=== PATIENT | female | born 1950 | race Caucasian/White ===

== ENCOUNTER 2019-12-19 13:28 | Outpatient (CLI) | payer MEDICARE, MEDICAID, SELFPAY ==
[2019-12-19 14:08] LABS: Blood Urea Nitrogen 25 mg/dL (7-17); Calcium 8.4 mg/dL (8.4-10.2); Carbon Dioxide 27 mmol/L (22-30); Chloride 104 mmol/L (98-107); Estimated Glomerular Filt Rate 35; Glucose 173 mg/dL (65-105); Magnesium 0.7 mg/dL (1.6-2.3); Sodium 141 mmol/L (137-145)
== END 2019-12-19 13:29 | disposition home or self-care (01) ==
PROVIDERS: PCP Family Medicine; Visit Provider Internal Medicine Cardiovascular Disease
DX: R60.0 Localized edema (principal)
CPT/HCPCS: 36415; 80048; 83735

== ENCOUNTER 2020-01-14 11:00 | Outpatient (CLI) | payer MEDICARE, MEDICAID, SELFPAY ==
--- NOTE | ~2020-01-14 | XR_ITS ---
EXAMINATION: XR abdomen/kub 1V INDICATION: Right kidney stone, post lithotripsy TECHNIQUE: Supine views of the abdomen were obtained on 2 radiographs. COMPARISON: 08/05/2019 FINDINGS: No definite urinary tract calculi are identified. Punctate calcifications in the upper abdo men are consistent with old granulomatous disease of the liver and spleen. There are surgical clips i n the left pelvis. The bowel gas pattern is normal. There is mild osteoarthritis of the hips severe l umbar spondylosis is noted.. IMPRESSION: 1. No urinary tract calculi identified. Reviewed, dictated and finalized at location A.
== END 2020-01-14 11:01 | disposition home or self-care (01) ==
PROVIDERS: PCP Family Medicine; Visit Provider Urology
DX: N20.0 Calculus of kidney (principal)
CPT/HCPCS: 74018

== ENCOUNTER 2020-05-23 09:39 | Outpatient (CLI) | payer MEDICARE, MEDICAID, SELFPAY ==
--- NOTE | ~2020-05-23 | CT_ITS ---
EXAMINATION: CT abdomen pelvis wo con DATE: 05/23/2020 10:01 INDICATION: Hematuria TECHNIQUE: Computed tomography (CT) of the abdomen and pelvis was performed without intravenous contr ast. The dose-length product (DLP) was 770.32 mGy-cm. Automated exposure control and iterative recons truction technique were employed. COMPARISON: None FINDINGS: Minimal dependent atelectasis is present in the lung bases. The heart size is normal. Punct ate calcifications in otherwise normal appearing liver and spleen likely represent healed granulomato us disease. The gallbladder is surgically absent. The pancreas and adrenal glands are normal. There i s a 1.5 cm stone of the left kidney upper pole. A 7 mm stone is seen in a lower pole calyx of the rig ht kidney. There is a 4 mm stone of the right kidney upper pole. There is no hydronephrosis or hydrou reter. There is calcified atherosclerosis of the aorta and many of the other arteries. No pathologica lly enlarged abdominal or pelvic lymph nodes are identified. There is no free intraperitoneal gas or evidence of bowel obstruction. Colonic diverticulosis is present without evidence of diverticulitis. Mild thoracolumbar spondylosis is noted. IMPRESSION: 1. Bilateral nephrolithiasis with 7 mm stone projecting in a lower pole calyx of the right kidney. Reviewed, dictated and finalized at location A. ALER HELPER IMPRESSION: 1. Bilateral nephrolithiasis with 7 mm stone projecting in a lower pole calyx o f the right kidney.
--- NOTE | ~2020-05-23 | XR_ITS ---
EXAMINATION: XR abdomen/kub 1V INDICATION: Hematuria TECHNIQUE: Supine views of the abdomen were obtained on 2 radiographs. COMPARISON: CT from today and abdominal radiograph dated 01/14/2020 FINDINGS: 1.4 cm stone is seen in the left kidney upper pole. Bowel contents project over the kidneys limiting sensitivity for renal stones including known right nephrolithiasis. Punctate calcifications of the spleen and liver are consistent with old granulomatous disease. There are surgical clips in t he left pelvis. The bowel gas pattern is normal. IMPRESSION: 1. Left nephrolithiasis. Known right nephrolithiasis well demonstrated. Reviewed, dictated and finalized at location A. INTENSIVE CARE UNIT
== END 2020-05-23 09:40 | disposition home or self-care (01) ==
PROVIDERS: PCP Family Medicine; Visit Provider Urology
DX: N20.0 Calculus of kidney (principal)
CPT/HCPCS: 74018; 74176

== ENCOUNTER 2020-05-30 14:39 | Outpatient (CLI) | payer MEDICARE, MEDICAID, SELFPAY ==
--- NOTE | 2020-05-30 14:43 | ECG_ITS ---
Measurements Intervals [place] Rate: 89 P: 57 [place]: 176 QRS: 11 QRSD: 94 T: 32 QT: 334 QTc: 408 Interpretive Statements SINUS RHYTHM LOW VOLTAGE- PRECORDIAL LEADS POOR R WAVE PROGRESSION, ANTERIOR LEADS BASELINE ARTIFACT- I, II, III, AVR, AVL, AVF BORDERLINE ECG Electronically Signed On 05-30-2020 15:07:01 TRUCK BODY REPAIRER by Bronson Up D.O.
[2020-05-30 15:59] LABS: INR 1.1; Partial Thromboplastin Time 26.9 SECONDS (22.3-36.8); Prothrombin Time 14.6 Seconds (11.1-14.7)
[2020-05-30 16:04] LABS: Potassium 4.1 mmol/L (3.4-5.0)
[2020-05-30 16:11] LABS: Anion Gap 8 mmol/L (8-16); Blood Urea Nitrogen 25 mg/dL (7-17); Calcium 9.4 mg/dL (8.4-10.2); Carbon Dioxide 29 mmol/L (22-30); Chloride 103 mmol/L (98-107); Estimated Glomerular Filt Rate 35; Glucose 125 mg/dL (65-105); Sodium 140 mmol/L (137-145)
== END 2020-05-30 14:40 | disposition home or self-care (01) ==
PROVIDERS: PCP Family Medicine; Visit Provider Urology
DX: Z01.818 Encounter for other preprocedural examination (principal); E11.9 Type 2 diabetes mellitus without complications; N20.0 Calculus of kidney
CPT/HCPCS: 36415; 80048; 85610; 85730; 87086; 93005

== ENCOUNTER 2020-06-03 02:22 | Outpatient (CLI) | payer MEDICARE, MEDICAID, SELFPAY ==
[2020-06-03 19:47] LABS: SARS-CoV-2 RNA PCR Negative
== END 2020-06-03 02:23 | disposition home or self-care (01) ==
LOC: ANHCOVIDDT 02:23
PROVIDERS: PCP Family Medicine; Visit Provider Urology
DX: Z01.812 Encounter for preprocedural laboratory examination (principal); Z20.828 Contact with and (suspected) exposure to other viral communicable diseases
CPT/HCPCS: 87635; C9803; U0003

== ENCOUNTER 2020-06-06 04:15 | Day surgery (SDC) | payer MEDICARE, MEDICAID, SELFPAY ==
[2020-05-29 15:49] VITALS: BMI 40.3
[2020-06-06] VITALS (7 sets, daily range): BP systolic 116–156; BP diastolic 53–78; PULSE 79–88; RESP 14–20; TEMP 36.1–37.1; O2SAT 95–100
--- NOTE | ~2020-06-06 | XR_ITS ---
EXAMINATION: XR abdomen/kub 1V EXAM DATE: 06/06/2020 09:13 INDICATION: Pre lithotripsy, left nephrolithiasis. TECHNIQUE: Frontal projection(s) of the abdomen for interpretation. Correlation is made to CT, KUB fr om 05/23/2020. FINDINGS: Probable identification of left sided 1.4 cm stone, indicated. Difficult to definitively i dentify right nephrolithiasis. There are splenic and liver granulomata. Nonobstructive bowel gas clifford josé miguel. IMPRESSION: Probable identification left nephrolithiasis, indicated. Reviewed, dictated and finalized at location A. GER STATE
--- NOTE | 2020-06-06 06:10 | WPDHPUPDATE1 ---
History and Physical Update Update Date/Time: 06/06/20 06:10 History and Physical has been reviewed, including an updated exam of the patient. There are NO changes in the patient's condition. Risks, benefits, and alternatives have been discussed and questions answered. Patient agrees to proceed with procedure.
[2020-06-06] MEDS: LACTATED RINGERS 1,000 ML 30 ML IV CONT (09:37)
--- NOTE | 2020-06-06 09:43 | WPDANESEPPF ---
Anes - Initial Pre Proc Eval Procedure: Operation Date: 06/06/20 11:00 Proposed Procedures p Left Renal Extracorporeal Shock Wave Lithotripsy - Miko Huff MD s Cystoscopy, Left Stent Placement - Miko Huff MD Date/Time: 06/06/20 09:43 Surgeon: Miko Huff MD Pre Op Diagnosis: Left Renal Stone Patient Data Age: 70 Gender: F Height: 1.57 m Weight: 100 kg Allergies Allergy/AdvReac Type Severity Reaction Status Date / Time tramadol Allergy Severe Hives Verified 05/29/20 15:14 atorvastatin AdvReac Severe Nausea and Verified 05/29/20 15:14 Vomiting pravastatin AdvReac Intermediate Nausea and Verified 05/29/20 15:14 Vomiting budesonide AdvReac Mild Muscle Verified 05/29/20 15:14 Spasms formoterol AdvReac Mild Muscle Verified 05/29/20 15:14 Spasms Home Medications Medication Instructions Recorded Confirmed Type albuterol sulfate [ProAir HFA] 1 inh INHALATION QID PRN 05/17/19 05/29/20 History betamethasone valerate 1 applic TOPICAL DAILY 06/06/19 05/29/20 History blood sugar diagnostic #10 each 06/18/19 02/08/20 History blood sugar diagnostic #100 each 06/21/19 02/08/20 Rx magnesium hydroxide 400 mg (170 mg 800 mg PO DAILY tablet 02/08/20 05/29/20 History magnesium) chewable tablet amlodipine 5 mg tablet 5 mg PO DAILY #90 tablet 03/10/20 05/29/20 Rx lisinopril 20 mg tablet 20 mg PO DAILY #90 tablet 03/10/20 05/29/20 Rx glimepiride 1 mg tablet 1 mg PO DAILY #90 tablet 05/12/20 05/29/20 Rx omeprazole 20 mg capsule,delayed 20 mg PO BID #90 cap 05/12/20 05/29/20 Rx release hydrocodone 5 mg-acetaminophen 325 1 tablet PO BID PRN #30 tablet 05/15/20 05/29/20 Rx mg tablet dulaglutide 0.75 mg/0.5 mL 0.75 mg SUBCUT WEEKLY #2 ml 05/22/20 05/29/20 Rx subcutaneous pen injector Patient hx anesthesia problems: none Family hx anesthesia problems: none PMFSH Past Medical History Medical History (Updated 05/15/20 @ 16:09 by Angel Cottrell DO) Abnormal laboratory test (~05/2019) Asthma rescue inhaler Chronic neck pain MRI of cervical spine demonstrated [id number] cervical spondylosis C5 through C7, left foraminal narrowing and moderate right foraminal narrowing C5-C6, spinal stenosis with minimal flattening along the ventral cord C5 through C7. Diabetes (~2007) NIDDM GERD (gastroesophageal reflux disease) takes med Headache (~04/2019) Hypercholesterolemia Hypertension (~2016) Incontinence Kidney stones most recent kidney stone April 2019 Morbid obesity MADDY (obstructive sleep apnea) cpap for over 10 years Surgical History Surgical History H/O colonoscopy History of appendectomy History of bilateral tubal ligation History of cataract surgery Bilateral History of lithotripsy History of total abdominal hysterectomy and bilateral salpingo-oophorectomy due to dysfunctional uterine bleeding Hx of cholecystectomy (Unknown) S/P cystoscopy with ureteral stent placement S/P dilatation of esophageal stricture with multiple EGDs and dilatations Family History Family History Grandparent Acute myocardial infarction Family history of malignant neoplasm Carcinoma of colon Mother Family history of liver disease Mother who in her late 50s of cirrhosis related to hepatitis C Father Leukemia father who in his 60s of leukemia. 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 She then went on disability when she had a nervous breakdown. She has 3 children who are all healthy. She is a former smoker and smoked at least 2 packs of cigarettes per day from the age of 17 to age 57. She rarely drinks alcohol and only in moderation. She has 3 (or 4) children who are all healthy. Smoking packs p
[2020-06-06 09:52] LABS: Glucose Point of Care 95 (65-105)
[2020-06-06] MEDS: ceFAZolin 2 GM/D5W 50 ML 2 GM/50 ML BAG IVPB (11:02)
--- NOTE | 2020-06-06 11:19 | PM.PROC ---
Procedure Note - Detailed Date of procedure: 06/06/20 Pre-op diagnosis: Left Renal Stone Post-op diagnosis: same Procedure performed: Left ESWL Description of procedure: After discussion with pt. in pre-operative area we opted to proceed with ESWL alone without stent placement. The patient was brought to the operative suite where she was placed in the supine position on the Dornier lithotripsy table. The focal point of the lithotripter was placed at a 13-14mm left renal calculus. A total of 2500 shocks were delivered at a power setting of 4. There appeared to be good fragmentation of the stone. The patient tolerated the procedure well and was taken to the recovery room in good condition. Anesthesia: GLMA Surgeon: Miko Huff MD Estimated blood loss (mL): 0 Drains: No Packing: No Pathology: none sent Complications: No immediate complications Condition: stable Disposition: PACU
--- NOTE | 2020-06-06 12:35 | SUR.PHASEI ---
PT AWAKE AND ALERT. READY TO SIT IN RECLINER AND HAVE PO FLUIDS
[2020-06-06 12:52] LABS: Glucose Point of Care 110 (65-105)
== END 2020-06-06 14:00 | disposition home or self-care (01) ==
PROVIDERS: PCP Family Medicine; Visit Provider Urology
PROC: (CPT 50590; principal; 2020-06-06 11:00)
DX: N20.0 Calculus of kidney (principal); I10 Essential (primary) hypertension; E78.00 Pure hypercholesterolemia, unspecified; J45.909 Unspecified asthma, uncomplicated; E11.9 Type 2 diabetes mellitus without complications; G47.33 Obstructive sleep apnea (adult) (pediatric); E66.01 Morbid (severe) obesity due to excess calories; Z68.41 Body mass index [BMI] 40.0-44.9, adult; K21.9 Gastro-esophageal reflux disease without esophagitis; Z87.891 Personal history of nicotine dependence
CPT/HCPCS: 50590; 36415; 74018; 80048; 85610; 85730; 87086; 87635; 93005; A9270; C9803; J0690; J1100; J2250; J2405; J2704; J3010; J7030; J7120; U0003

== ENCOUNTER 2020-06-20 11:46 | Outpatient (CLI) | payer MEDICARE, MEDICAID, SELFPAY ==
--- NOTE | ~2020-06-20 | XR_ITS ---
XR abdomen/kub 1V 06/20/2020 12:07 Indication: Left renal stone Procedure: KUB Comparison: Comparison to multiple prior studies sequentially, with oldest reviewed study dated 03/2020. Findings: Bowel gas pattern is nonobstructive. There are calcified granulomas of the spleen. There is surgical clip in the right midabdomen and left lower pelvis. Mild-moderate lumbar spondylosis. No ac abdirashid osseous abnormality. There are right renal stones. Lung bases are unremarkable. Impression: 1: Right nephrolithiasis. Reviewed, dictated and finalized at location B. NESS SALES CONSULTANT Impression: 1: Right nephrolithiasis.
[2020-06-20 13:25] LABS: Cholesterol 191 mg/dL (0-200); HDL Direct 35 mg/dL; Triglycerides 215 mg/dL (<150)
[2020-06-20 13:35] LABS: LDL Cholesterol Direct 116 mg/dL
== END 2020-06-20 11:47 | disposition home or self-care (01) ==
LOC: ANHIMG 11:46
PROVIDERS: PCP Family Medicine; Referring Provider Internal Medicine Cardiovascular Disease; Visit Provider Urology
DX: N20.0 Calculus of kidney (principal); M47.816 Spondylosis without myelopathy or radiculopathy, lumbar region; E78.5 Hyperlipidemia, unspecified
CPT/HCPCS: 36415; 74018; 80061

== ENCOUNTER 2020-07-04 12:07 | Emergency (ER) | payer MEDICARE, MEDICAID, SELFPAY ==
--- NOTE | ~2020-07-04 | US_ITS ---
EXAMINATION:US venous doppler LE LT INDICATION:Leg pain TECHNIQUE: Multiple grayscale, color flow and Doppler images of the left lower extremity deep venous systems were obtained and reviewed. COMPARISON:No prior studies for comparison. FINDINGS: The common femoral, superficial femoral and popliteal veins demonstrate normal respiratory variation, augmentation and compressibility. Color flow is also seen within the posterior tibial, pe roneal, greater saphenous and profunda veins. IMPRESSION: 1: No lower extremity deep venous thrombosis. Reviewed, dictated and finalized at location A. N TENDER
--- NOTE | ~2020-07-04 | XR_ITS ---
EXAMINATION: XR knee LT min 4V DATE: 07/04/2020 12:59 INDICATION: Left knee pain. TECHNIQUE: 4 views of left knee were obtained. COMPARISON: None. FINDINGS: Bone alignment is normal. No fracture. There is mild tricompartmental osteoarthritis. There is a small knee joint effusion. IMPRESSION: 1. Mild left knee osteoarthritis. 2. Small left knee joint effusion. Reviewed, dictated and finalized at location A. EQUIN COLORING ARTIST
[2020-07-04 12:26] VITALS: BP 147/59; PULSE 99; RESP 18; TEMP 36.2; O2SAT 99
--- NOTE | 2020-07-04 12:33 | ED.LOWEXIN ---
HPI - Extremity Injury (Lower) General Chief Complaint: Extremity Injury, Lower Stated Complaint: left knee pain Time Seen by Provider: 07/04/20 12:33 Source: patient and family Mode of arrival: wheelchair Limitations: no limitations History of Present Illness HPI Narrative: Patient is a 70-year-old female who presents for evaluation of acutely worsening left knee pain. Patient states she has had worsening knee pain over the past month although she had no trauma to the knee. She denies any severe swelling, redness, reports a burning type pain. She states that it hurts with movement. She denies fever, chills. No calf pain. No numbness. Patient has been seeing a nurse practitioner with an orthopedic office and is taking pain medicine without any improvement in her pain. Pain is dull, aching in nature, aggravated with movement can become sharp. Denies hip pain. Patient has follow-up with [facility] July 28. Related Data Home Medications Medication Instructions Recorded Confirmed albuterol sulfate [ProAir HFA] 1 inh INHALATION QID PRN 05/17/19 06/19/20 betamethasone valerate 1 applic TOPICAL DAILY 06/06/19 06/19/20 blood sugar diagnostic #10 each 06/18/19 06/19/20 magnesium hydroxide 400 mg (170 mg 800 mg PO DAILY tablet 02/08/20 06/19/20 magnesium) chewable tablet Allergies Allergy/AdvReac Type Severity Reaction Status Date / Time tramadol Allergy Severe Hives Verified 07/04/20 12:29 atorvastatin AdvReac Severe Nausea and Verified 07/04/20 12:29 Vomiting pravastatin AdvReac Intermediate Nausea and Verified 07/04/20 12:29 Vomiting budesonide AdvReac Mild Muscle Verified 07/04/20 12:29 Spasms formoterol AdvReac Mild Muscle Verified 07/04/20 12:29 Spasms Review of Systems Review of Systems: Narrative: CONSTITUTIONAL: Denies fever, chills, or sweats. CARDIOVASCULAR: Denies chest pain, palpitations, or edema. RESPIRATORY: Denies cough or dyspnea. GASTROINTESTINAL: Denies abdominal pain, nausea, vomiting, or diarrhea. GENITOURINARY: Denies dysuria or hematuria. SKIN: Denies rash or itching. MUSCULOSKELETAL: Denies back pain, reports left knee pain NEUROLOGIC: Denies headache, numbness, or weakness. [facility] Past Medical History Medical History Abnormal laboratory test (~05/2019) Asthma rescue inhaler Chronic neck pain MRI of cervical spine demonstrated [id number] cervical spondylosis C5 through C7, left foraminal narrowing and moderate right foraminal narrowing C5-C6, spinal stenosis with minimal flattening along the ventral cord C5 through C7. Diabetes (~2007) NIDDM GERD (gastroesophageal reflux disease) takes med Headache (~04/2019) Hx of nephrolithotomy with removal of calculi Hypercholesterolemia Hypertension (~2016) Incontinence Kidney stones most recent kidney stone April 2019 Morbid obesity MADDY (obstructive sleep apnea) cpap for over 10 years Surgical History Surgical History H/O colonoscopy History of appendectomy History of bilateral tubal ligation History of cataract surgery Bilateral History of lithotripsy History of total abdominal hysterectomy and bilateral salpingo-oophorectomy due to dysfunctional uterine bleeding Hx of cholecystectomy (Unknown) S/P cystoscopy with ureteral stent placement S/P dilatation of esophageal stricture with multiple EGDs and dilatations Family History Family History Grandparent Acute myocardial infarction Family history of malignant neoplasm Carcinoma of colon Mother Family history of liver disease Mother who in her late 50s of cirrhosis related to hepatitis C Father Leukemia father who in his 60s of leukemia. Sibling Heart disease Social History Social History (Reviewed 07/04/20 @ 13:12 by Blayne
[2020-07-04] MEDS: oxyCODONE HCL (*CRX) 5 MG TAB IR PO (12:57)
[2020-07-04 13:28] LABS: Basophils Percent Auto 0.4 % (0.2-1.2); Eosinophils Absolute Auto 0.8 K/mm3 (0-0.3); Eosinophils Percent Auto 7.7 % (0-4.4); Hematocrit 30.4 % (37.0-47.0); Hemoglobin 9.7 g/dL (12.0-15.0); Immature Granulocyte Absolute 0.05 K/mm3 (0.00-0.031); Immature Granulocyte Percent A 0.5 % (0-0.5); Lymphocytes Absolute Auto 2.46 K/mm3 (0.9-3.2); Lymphocytes Percent Auto 24.7 % (18.3-44.2); Mean Corpuscular HGB Conc 31.9 g/dl (32-36); Mean Corpuscular Hemoglobin 25.7 pg (26-34); Mean Corpuscular Volume 80.4 fl (80-100); Mean Platelet Volume 8.7 fl (7.4-10.4); Monocytes Absolute Auto 0.5 K/mm3 (0.1-0.6); Monocytes Percent Auto 4.9 % (2.6-8.5); Neutrophils Absolute Auto 6.2 K/mm3 (1.3-6.7); Neutrophils Percent Auto 61.8 % (45.5-73.1); Platelet Count Result 210 k/mm3 (150-375); Red Blood Count 3.78 M/mm3 (4.2-5.4); Red Cell Distribution Width 16.3 % (11.5-14.5)
[2020-07-04 13:43] LABS: Anion Gap 5 mmol/L (8-16); Blood Urea Nitrogen 26 mg/dL (7-17); CRP 0.9 mg/dL (<1.0); Calcium 9.4 mg/dL (8.4-10.2); Carbon Dioxide 29 mmol/L (22-30); Chloride 105 mmol/L (98-107); Estimated CRCL calculation 30 ml/min; Estimated Glomerular Filt Rate 28; Glucose 129 mg/dL (65-105); Potassium 4.4 mmol/L (3.4-5.0); Sodium 139 mmol/L (137-145)
[2020-07-04 14:19] VITALS: BP 144/69; PULSE 89; RESP 17; O2SAT 98
[2020-07-04 14:39] LABS: Erythrocyte Sedimentation Rate 74 mm/hr (0-20)
[2020-07-04 15:11] VITALS: BP 144/64; PULSE 97; RESP 17; O2SAT 96
== END 2020-07-04 15:13 | disposition home or self-care (01) ==
PROVIDERS: Emergency Provider Emergency Medicine; PCP Family Medicine
DX: M23.92 Unspecified internal derangement of left knee (principal); J45.909 Unspecified asthma, uncomplicated; K21.9 Gastro-esophageal reflux disease without esophagitis; E78.00 Pure hypercholesterolemia, unspecified; Z87.442 Personal history of urinary calculi; G47.33 Obstructive sleep apnea (adult) (pediatric); E11.22 Type 2 diabetes mellitus with diabetic chronic kidney disease; I12.9 Hypertensive chronic kidney disease with stage 1 through stage 4 chronic kidney disease, or unspecified chronic kidney disease; N18.9 Chronic kidney disease, unspecified; D63.1 Anemia in chronic kidney disease; M48.02 Spinal stenosis, cervical region; M17.12 Unilateral primary osteoarthritis, left knee; M47.812 Spondylosis without myelopathy or radiculopathy, cervical region; G89.29 Other chronic pain; Z79.84 Long term (current) use of oral hypoglycemic drugs; Z98.42 Cataract extraction status, left eye; Z98.41 Cataract extraction status, right eye
CPT/HCPCS: 36415; 73564; 80048; 85025; 85652; 86140; 93971; 99284; A9270

== ENCOUNTER 2020-07-28 11:58 | Outpatient (CLI) | payer MEDICARE, MEDICAID, SELFPAY ==
--- NOTE | ~2020-07-28 | XR_ITS ---
EXAMINATION: XR knee LT min 4V DATE: 07/28/2020 12:21 INDICATION: Left knee pain. TECHNIQUE: 4 views of left knee were obtained. COMPARISON: Left knee radiographs 07/04/2020 FINDINGS: Bone alignment is normal. No fracture. There is mild osteoarthritis of patellofemoral lamont rtment characterized by tiny marginal osteophytes. There is no knee joint effusion. IMPRESSION: 1. Mild left knee osteoarthritis. Reviewed, dictated and finalized at location A. ESSOR OF HISTORICAL THEOLOGY
== END 2020-07-28 11:59 | disposition home or self-care (01) ==
PROVIDERS: PCP Family Medicine; Visit Provider Orthopaedic Surgery
DX: M25.562 Pain in left knee (principal); M17.12 Unilateral primary osteoarthritis, left knee
CPT/HCPCS: 73564

== ENCOUNTER 2020-07-29 09:09 | Emergency (ER) | payer MEDICARE, MEDICAID, SELFPAY ==
[2020-07-29 09:17] VITALS: BP 199/70; PULSE 120; RESP 20; TEMP 35.9; O2SAT 98
--- NOTE | 2020-07-29 09:35 | ECG_ITS ---
Measurements Intervals [place] Rate: 96 P: 56 HI: 195 QRS: 0 QRSD: 85 T: 14 QT: 321 QTc: 407 Interpretive Statements SINUS RHYTHM LOW QRS VOLTAGE IN PRECORDIAL LEADS BASELINE ARTIFACT- I, II, III, AVR, AVF BORDERLINE ECG Electronically Signed On 07-29-2020 11:12:39 CRIMINAL JUSTICE PROGRAM DIRECTOR by Bronson Up D.O.
--- NOTE | 2020-07-29 09:40 | ED.RECABL ---
HPI - Recheck/Abnormal Lab/Rx General Chief Complaint: Recheck/Abnormal Lab/Rx Stated Complaint: high blood sugar Time Seen by Provider: 07/29/20 09:29 Source: patient Mode of arrival: ambulatory Limitations: no limitations History of Present Illness HPI narrative: Patient 70-year-old female complaining of elevated blood sugar this morning 439 accompanied by jittery . Patient denies any headache, dizziness, chest pain, shortness of breath, dull pain, nausea, vomiting, diarrhea, fever, chills or urinary symptoms. Patient states her blood sugar usually runs in the 150s. Related Data Home Medications Medication Instructions Recorded Confirmed albuterol sulfate [ProAir HFA] 1 inh INHALATION QID PRN 05/17/19 07/28/20 betamethasone valerate 1 applic TOPICAL DAILY 06/06/19 07/28/20 blood sugar diagnostic #10 each 06/18/19 07/28/20 magnesium hydroxide 400 mg (170 mg 800 mg PO DAILY tablet 02/08/20 07/28/20 magnesium) chewable tablet Allergies Allergy/AdvReac Type Severity Reaction Status Date / Time tramadol Allergy Severe Hives Verified 07/29/20 09:20 atorvastatin AdvReac Severe Nausea and Verified 07/29/20 09:20 Vomiting pravastatin AdvReac Intermediate Nausea and Verified 07/29/20 09:20 Vomiting budesonide AdvReac Mild Muscle Verified 07/29/20 09:20 Spasms formoterol AdvReac Mild Muscle Verified 07/29/20 09:20 Spasms Review of Systems Review of Systems: All systems reviewed & are unremarkable except as noted in HPI and below Constitutional: Constitutional: Denies body ache(s), Denies chills, Denies excessive sweating, Denies fatigue, Denies fever(s), Denies headache(s), Denies lethargy, Denies malaise, Denies weakness and Denies weight loss Eyes: Eyes: Denies blurry vision, Denies change in vision and Denies loss of vision ENT: Denies dizziness, Denies ear discharge, Denies headache(s), Denies lip swelling, Denies epistaxis, Denies nasal congestion, Denies neck pain, Denies throat swelling and Denies tongue swelling Cardiovascular: Cardiovascular: Denies chest pain, Denies chest pain at rest, Denies chest pain with activity, Denies diaphoresis, Denies rapid heart rate, Denies edema, Denies irregular heart rhythm, Denies lightheadedness, Denies palpitations, Denies dyspnea and Denies dyspnea on exertion Respiratory: Respiratory: Denies chest congestion, Denies cough, Denies hemoptysis, Denies dyspnea and Denies dyspnea on exertion Gastrointestinal: Gastrointestinal: Denies abdominal pain, Denies melena, Denies hematochezia, Denies diarrhea, Denies nausea, Denies vomiting and Denies hematemesis Musculoskeletal: Musculoskeletal: Denies abnormal gait, Denies deformity, Denies joint swelling, Denies limited range of motion, Denies neck pain and Denies numbness Neurologic: Denies Abnormal speech present, Denies abnormal gait, Denies confusion, Denies dizziness, Denies headache(s), Denies focal weakness, Denies loss of vision, Denies numbness, Denies Other visual disturbances, Denies Sensory deficit (Neuro) and Denies weakness Psychiatric: Psychiatric: Denies confusion, Denies depression, Denies auditory hallucinations, Denies homicidal ideation and Denies suicidal ideation Endocrine: Endocrine: Denies cold intolerance, Denies excessive sweating, Denies fatigue, Denies heat intolerance and Denies palpitations Hematologic/Lymphatic: Hematologic/Lymphatic: Denies easy bleeding and Denies easy bruising Allergic/Immunologic: Allergic/Immunologic: Denies lip swelling, Denies throat swelling and Denies tongue swelling PMFSH Past Medical History Medical History Abnormal laboratory test (~05/2019) Arthritis Asthma rescue inhaler Chronic neck pain MRI of cervical spine demonstrated [id number] cervical spondylosis C5 through C7, left foraminal narrowing and moderate right foraminal narrowing C5-C6, spinal stenosis with minimal flattening along the ventral
[2020-07-29 09:58] LABS: Basophils Percent Auto 0.1 % (0.2-1.2); Hematocrit 35.8 % (37.0-47.0); Hemoglobin 11.2 g/dL (12.0-15.0); Immature Granulocyte Absolute 0.15 K/mm3 (0.00-0.031); Lymphocytes Absolute Auto 1.15 K/mm3 (0.9-3.2); Lymphocytes Percent Auto 7.7 % (18.3-44.2); Mean Corpuscular HGB Conc 31.3 g/dl (32-36); Mean Corpuscular Hemoglobin 26.3 pg (26-34); Mean Platelet Volume 9.3 fl (7.4-10.4); Monocytes Absolute Auto 0.4 K/mm3 (0.1-0.6); Monocytes Percent Auto 2.3 % (2.6-8.5); Neutrophils Absolute Auto 13.4 K/mm3 (1.3-6.7); Neutrophils Percent Auto 88.9 % (45.5-73.1); Platelet Count Result 206 k/mm3 (150-375); Red Blood Count 4.26 M/mm3 (4.2-5.4); Red Cell Distribution Width 16.6 % (11.5-14.5)
[2020-07-29 10:11] LABS: Alveolar/Arterial O2 Gradient 51.4 mmHg; Base Excess ABG -3.8 mEq/l (+/-2.0); Carboxyhemoglobin 0.1 % THb (0-2.0); Device ROOM AIR; Fractional Inspired Oxygen 21 %; HCO3 ABG 20.5 mEq/l (22.0-26.0); Methemoglobin ABG 0.3 %THb (0-1.5); Modified Allen's Test Pass; Oxygen Content ABG 13.3 %vol (16.0-22.0); Oxygen Saturation ABG 90.1 % (95.0-100.0); Oxyhemoglobin 89.8 % THb (90.0-100.0); PCO2 ABG 34.2 mmHg (35.0-45.0); PO2 ABG 57.4 mmHg (80.0-100.0); PO2 FiO2 Ratio Arterial Blood 2.73 %; Reduced Hemoglobin 9.8 %THb (0-5.0); Site Drawn RIGHT RADIAL; Total Hemoglobin 10.5 g/dL (12.0-18.0); pH ABG 7.395 (7.350-7.450)
[2020-07-29 10:21] LABS: Alanine Aminotransferase 23 U/L (4-35); Albumin Level 4.3 g/dL (3.5-5.1); Alkaline Phosphatase 121 U/L (38-126); Anion Gap 11 mmol/L (8-16); Aspartate Amino Transferase 19 U/L (14-36); Bilirubin,Total 0.5 mg/dL (0.2-1.3); Blood Urea Nitrogen 29 mg/dL (7-17); Carbon Dioxide 23 mmol/L (22-30); Chloride 104 mmol/L (98-107); Estimated CRCL calculation 33 ml/min; Estimated Glomerular Filt Rate 32; Glucose 326 mg/dL (65-105); Potassium 4.5 mmol/L (3.4-5.0); Sodium 138 mmol/L (137-145)
[2020-07-29] MEDS: SODIUM CHLORIDE 0.9% IV 1,000 ML 999 ML IV CONT (10:49)
[2020-07-29] MEDS: LACTATED RINGERS 1,000 ML 999 ML IV CONT (10:49)
--- NOTE | 2020-07-29 10:55 | PC.NURSE ---
Blood glucose was 275 at 10:48
[2020-07-29 11:00] LABS: Glucose Point of Care 275 (65-105)
[2020-07-29 11:58] VITALS: BP 139/117; PULSE 98; RESP 18; O2SAT 99
[2020-07-29 13:24] VITALS: BP 164/87; PULSE 106; RESP 18; O2SAT 99
[2020-07-29 14:15] LABS: Add Urine Microscopic? YES; Appearance Urine Clear (Clear); Bilirubin Urine Negative (Negative); Blood Urine Negative (Negative); Color Urine Yellow (Yellow); Glucose Urine UA 3+ mg/dL (Negative); Ketones Urine Negative (Negative); Leukocyte Esterase Ur Negative LEU/UL (Negative); Mucus Urine Rare /lpf; Nitrate Urine Negative (Negative); Protein Urine 1+ mg/dL (Negative); Specific Grav Ur 1.024 (1.001-1.035); Squamous Epithelial Cell Urine Rare /hpf (Few); Urobilinogen Urine Negative mg/dL (<2.0); WBC Urine 0-3 /hpf
[2020-07-29 14:49] LABS: Glucose Point of Care 259 (65-105)
[2020-07-29 14:57] VITALS: BP 123/89; PULSE 101; O2SAT 100
== END 2020-07-29 15:25 | disposition home or self-care (01) ==
PROVIDERS: Emergency Provider Emergency Medicine; PCP Family Medicine
DX: E11.65 Type 2 diabetes mellitus with hyperglycemia (principal); E11.22 Type 2 diabetes mellitus with diabetic chronic kidney disease; I12.9 Hypertensive chronic kidney disease with stage 1 through stage 4 chronic kidney disease, or unspecified chronic kidney disease; N18.30 Chronic kidney disease, stage 3 unspecified; J45.909 Unspecified asthma, uncomplicated; M17.12 Unilateral primary osteoarthritis, left knee; K21.9 Gastro-esophageal reflux disease without esophagitis; E78.00 Pure hypercholesterolemia, unspecified; G47.33 Obstructive sleep apnea (adult) (pediatric); E66.01 Morbid (severe) obesity due to excess calories; Z68.39 Body mass index [BMI] 39.0-39.9, adult; Z87.442 Personal history of urinary calculi; Z98.42 Cataract extraction status, left eye; Z98.41 Cataract extraction status, right eye; Z87.891 Personal history of nicotine dependence; Z79.84 Long term (current) use of oral hypoglycemic drugs; R94.31 Abnormal electrocardiogram [ECG] [EKG]
CPT/HCPCS: 36415; 36600; 51701; 80053; 81001; 82375; 82805; 82948; 83050; 85025; 93005; 96360; 99283; J7030; J7120

== ENCOUNTER 2020-08-06 08:15 | Outpatient (CLI) | payer MEDICARE, MEDICAID, SELFPAY ==
[2020-08-06 19:07] LABS: Erythrocyte Sedimentation Rate 99 mm/hr (0-20)
[2020-08-06 19:22] LABS: Anion Gap 4 mmol/L (8-16); Blood Urea Nitrogen 23 mg/dL (7-17); CRP 1.1 mg/dL (<1.0); Calcium 9.5 mg/dL (8.4-10.2); Carbon Dioxide 30 mmol/L (22-30); Chloride 105 mmol/L (98-107); Estimated Glomerular Filt Rate 37; Glucose 140 mg/dL (65-105); Magnesium 1.6 mg/dL (1.6-2.3); Potassium 4.8 mmol/L (3.4-5.0); Sodium 139 mmol/L (137-145)
== END 2020-08-06 08:16 | disposition home or self-care (01) ==
LOC: ANHBWCLAB 08:18
PROVIDERS: PCP Family Medicine; Visit Provider Family Medicine
DX: G47.62 Sleep related leg cramps (principal); M31.6 Other giant cell arteritis; R51.9 Headache, unspecified; R70.0 Elevated erythrocyte sedimentation rate
CPT/HCPCS: 36415; 80048; 82728; 83735; 85652; 86140

== ENCOUNTER 2020-09-15 08:05 | Outpatient (CLI) | payer MEDICARE, MEDICAID, SELFPAY ==
[2020-09-15 19:53] LABS: Basophils Absolute Auto 0.1 K/mm3 (0.0-0.1); Basophils Percent Auto 0.4 % (0.2-1.2); Hematocrit 33.9 % (37.0-47.0); Hemoglobin 10.6 g/dL (12.0-15.0); Immature Granulocyte Absolute 0.07 K/mm3 (0.00-0.031); Immature Granulocyte Percent A 0.5 % (0-0.5); Lymphocytes Absolute Auto 2.43 K/mm3 (0.9-3.2); Lymphocytes Percent Auto 17.9 % (18.3-44.2); Mean Corpuscular HGB Conc 31.3 g/dl (32-36); Mean Corpuscular Hemoglobin 27.5 pg (26-34); Mean Corpuscular Volume 87.8 fl (80-100); Mean Platelet Volume 9.4 fl (7.4-10.4); Monocytes Absolute Auto 0.9 K/mm3 (0.1-0.6); Monocytes Percent Auto 6.4 % (2.6-8.5); Neutrophils Absolute Auto 9.2 K/mm3 (1.3-6.7); Neutrophils Percent Auto 67.8 % (45.5-73.1); Platelet Count Result 255 k/mm3 (150-375); Red Blood Count 3.86 M/mm3 (4.2-5.4); Red Cell Distribution Width 15.9 % (11.5-14.5); White Blood Count 13.5 K/mm3 (4.5-10.0)
[2020-09-15 19:56] LABS: Add Urine Microscopic? YES; Appearance Urine Cloudy (Clear); Bilirubin Urine Negative (Negative); Blood Urine Negative (Negative); Color Urine Yellow (Yellow); Glucose Urine UA Negative (Negative); Ketones Urine Negative (Negative); Leukocyte Esterase Ur Negative LEU/UL (Negative); Mucus Urine Rare /lpf; Nitrate Urine Negative (Negative); Protein Urine Negative (Negative); RBC Urine 0-2 /hpf (0-2); Specific Grav Ur 1.024 (1.001-1.035); Squamous Epithelial Cell Urine Rare /hpf (Few); Uric Acid Crystals Urine Present /hpf; Urobilinogen Urine Negative mg/dL (<2.0); WBC Urine 0-3 /hpf
[2020-09-15 19:58] LABS: Iron 47 ug/dL (37-170)
[2020-09-15 20:01] LABS: Albumin Level 3.9 g/dL (3.5-5.1); Anion Gap 9 mmol/L (8-16); Blood Urea Nitrogen 26 mg/dL (7-17); CRP 0.7 mg/dL (<1.0); Calcium 9.3 mg/dL (8.4-10.2); Carbon Dioxide 26 mmol/L (22-30); Chloride 106 mmol/L (98-107); Estimated Glomerular Filt Rate 35; Glucose 138 mg/dL (65-105); Magnesium 1.3 mg/dL (1.6-2.3); Potassium 3.8 mmol/L (3.4-5.0); Sodium 141 mmol/L (137-145)
[2020-09-15 20:02] LABS: Total Protein Urine Random 7 mg/dL; Ur Ttl Prot Creatinine Ratio 0.04 mg/mg (0-0.20)
[2020-09-15 20:07] LABS: MALB Creatinine Ratio 8.1 mg/g (0-30); Microalbumin Urine Random 15.7 mg/L (0-16.7); Transferrin 319 mg/dL (206-381)
[2020-09-15 20:14] LABS: Percent Iron Saturation 11 % (20-50)
[2020-09-15 20:46] LABS: Erythrocyte Sedimentation Rate 82 mm/hr (0-20)
[2020-09-15 21:17] LABS: Folic Acid 8.6 ng/mL (2.76->20)
[2020-09-15 21:38] LABS: Vitamin D 25 Hydroxy 29.8 ng/mL
== END 2020-09-15 08:06 | disposition home or self-care (01) ==
PROVIDERS: PCP Family Medicine; Visit Provider Internal Medicine Nephrology
DX: E11.9 Type 2 diabetes mellitus without complications (principal); D63.1 Anemia in chronic kidney disease; D50.9 Iron deficiency anemia, unspecified; N39.0 Urinary tract infection, site not specified; I77.6 Arteritis, unspecified; E55.9 Vitamin D deficiency, unspecified; N18.30 Chronic kidney disease, stage 3 unspecified; I12.9 Hypertensive chronic kidney disease with stage 1 through stage 4 chronic kidney disease, or unspecified chronic kidney disease
CPT/HCPCS: 36415; 80069; 81001; 82043; 82306; 82570; 82607; 82728; 82746; 83540; 83550; 83735; 84156; 84466; 85025; 85652; 86140

== ENCOUNTER → 2020-10-17 04:54 | Outpatient (CLI) | payer MEDICARE, MEDICAID, SELFPAY ==
[2020-10-17 19:22] LABS: SARS-CoV-2 RNA PCR Negative
== END ==
PROVIDERS: PCP Family Medicine; Visit Provider Orthopaedic Surgery
DX: Z01.812 Encounter for preprocedural laboratory examination (principal); Z20.822 Contact with and (suspected) exposure to COVID-19
CPT/HCPCS: C9803; U0003; U0005

== ENCOUNTER 2020-10-20 01:57 | Day surgery (SDC) | payer MEDICARE, MEDICAID, SELFPAY ==
[2020-10-10 15:09] VITALS: BMI 45.7
[2020-10-20] VITALS (8 sets, daily range): BP systolic 142–168; BP diastolic 64–86; PULSE 86–93; RESP 13–22; TEMP 36.9–37.3; O2SAT 92–100
--- NOTE | 2020-10-20 07:01 | WPDHPUPDATE1 ---
History and Physical Update Update Date/Time: 10/20/20 07:01 History and Physical has been reviewed, including an updated exam of the patient. There are NO changes in the patient's condition. Covid test negative. Risks, benefits, and alternatives have been discussed and questions answered. Patient agrees to proceed with procedure.
--- NOTE | 2020-10-20 07:38 | WPDANESEPP ---
Anes - Eval Pre Procedure Procedure: Operation Date: 10/20/20 09:30 Proposed Procedures p Left Knee Arthroscopy, Debride Meniscus, Left Synovectomy, Left Chondroplasty, Proceed As Indicated - Tyrell Aranda MD Date/Time: 10/20/20 07:38 Pre Op Diagnosis: left knee pain, left medial meniscus tear, Patient Data Age: 70 Gender: F Height: 1.57 m Weight: 113.4 kg Allergies Allergy/AdvReac Type Severity Reaction Status Date / Time tramadol Allergy Severe Hives Verified 10/10/20 14:45 atorvastatin AdvReac Severe Nausea and Verified 10/10/20 14:45 Vomiting pravastatin AdvReac Intermediate Nausea and Verified 10/10/20 14:45 Vomiting budesonide AdvReac Mild Muscle Verified 10/10/20 14:45 Spasms formoterol AdvReac Mild Muscle Verified 10/10/20 14:45 Spasms Home Medications Medication Instructions Recorded Confirmed Type albuterol sulfate [ProAir HFA] 1 inh INHALATION QID PRN 05/17/19 10/10/20 History blood sugar diagnostic #10 each 06/18/19 10/06/20 History blood sugar diagnostic #100 each 06/21/19 10/06/20 Rx magnesium hydroxide 400 mg (170 mg 200 mg PO BID tablet 02/08/20 10/10/20 History magnesium) chewable tablet omeprazole 20 mg capsule,delayed 20 mg PO BID #90 cap 05/12/20 10/10/20 Rx release acetaminophen [Tylenol] 325 mg PO Q6H PRN #20 tablet 07/04/20 10/10/20 Rx amlodipine 5 mg tablet 5 mg PO DAILY #90 tablet 09/04/20 10/10/20 Rx glimepiride 1 mg tablet 1 mg PO DAILY #90 tablet 09/04/20 10/10/20 Rx lancets #100 ea 09/08/20 10/06/20 Rx dulaglutide 0.75 mg/0.5 mL 1.25 mg SUBCUT WEEKLY ml 10/06/20 10/10/20 History subcutaneous pen injector lisinopril 20 mg tablet 20 mg PO DAILY tablet 10/06/20 10/10/20 History cholecalciferol (vitamin D3) 2,000 unit PO DAILY 10/10/20 10/10/20 History cyanocobalamin (vitamin B-12) 1,000 mcg PO DAILY 10/10/20 10/10/20 History mirabegron [Myrbetriq] 25 mg PO PRN PRN 10/10/20 10/10/20 History Patient hx anesthesia problems: none Family hx anesthesia problems: none PMFSH Past Medical History Medical History Abnormal laboratory test (~05/2019) Acute medial meniscus tear of left knee Arthritis Asthma rescue inhaler Chronic neck pain MRI of cervical spine demonstrated [id number] cervical spondylosis C5 through C7, left foraminal narrowing and moderate right foraminal narrowing C5-C6, spinal stenosis with minimal flattening along the ventral cord C5 through C7. Claustrophobia Degenerative arthritis of left knee Diabetes (~2007) NIDDM GERD (gastroesophageal reflux disease) takes med Headache (~04/2019) Hx of nephrolithotomy with removal of calculi Hypercholesterolemia Hypertension (~2016) Incontinence Kidney disease Kidney stones most recent kidney stone April 2019 Morbid obesity MADDY (obstructive sleep apnea) cpap for over 10 years Psoriasis Wears glasses Surgical History Surgical History H/O colonoscopy History of appendectomy History of bilateral tubal ligation History of cataract surgery Bilateral History of lithotripsy History of total abdominal hysterectomy and bilateral salpingo-oophorectomy due to dysfunctional uterine bleeding Hx of cholecystectomy (Unknown) S/P cystoscopy with ureteral stent placement S/P dilatation of esophageal stricture with multiple EGDs and dilatations Family History Family History Grandparent Acute myocardial infarction Family history of malignant neoplasm Carcinoma of colon Mother Family history of liver disease Mother who in her late 50s of cirrhosis related to hepatitis C Father Leukemia father who in his 60s of leukemia. 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
[2020-10-20] MEDS: LACTATED RINGERS 1,000 ML 30 ML IV CONT (08:20)
[2020-10-20] MEDS: ACETAMINOPHEN 500 MG TABLET 1000 MG PO (08:24)
[2020-10-20 08:27] LABS: Glucose Point of Care 134 (65-105)
[2020-10-20 08:47] LABS: Prothrombin Time 13.6 Seconds (11.1-14.7)
[2020-10-20 08:48] LABS: Partial Thromboplastin Time 36.5 SECONDS (22.3-36.8)
--- NOTE | 2020-10-20 09:03 | WPDANESEFPP ---
Anes - Eval Final PreProcedure Day of Procedure 10/20/20 09:03 Patient weight: morbidly obese Heart: regular rate and rhythm Lungs: clear to auscultation Airway: Mallampati scale class III Neurological: alert and oriented Last oral intake: >/= 8 hours ASA classification: III Emergent: no Anesthesia type and monitoring: general LMA and standard monitoring Informed Consent: The patient's anesthetic plan and its attendant risks and benefits were discussed with the patient/family/POA. Questions were solicited and answers provided to the satisfaction of the patient/family/POA.
[2020-10-20] MEDS: ceFAZolin 2 GM/D5W 50 ML 2 GM/50 ML BAG IVPB (09:47)
[2020-10-20] MEDS: BUPIVACAINE/EPINEPHRINE 0.5% 30 ML VIAL INFILTRATE (10:06)
--- NOTE | 2020-10-20 11:10 | PM.PROC ---
Procedure Note - Detailed Date of procedure: 10/20/20 Pre-op diagnosis: left knee pain, left medial meniscus tear, Post-op diagnosis: same Procedure performed: Left knee arthroscopy with medial meniscectomy and chondroplasty Description of procedure: Operative indications: Patient is a 70-year-old woman with left knee pain. She has failed conservative treatment with 2 cortisone injections, physical therapy, home exercises and bracing. MRI demonstrates medial meniscus tear and degenerative changes. She presents now for operative treatment having failed conservative treatment. Informed consent given by patient. Operative extremity marked in preoperative holding area. Patient received intravenous antibiotics. Patient brought to operating room and underwent general anesthetic by anesthesia team. Positioned supine on operating room table. Left leg placed into a posterior thigh leg hernandez. Foot of the table dropped to 90? and right leg padded out of the field. Time-out performed confirming patient, site of surgery and plan. Left knee prepped and draped in usual sterile surgical fashion using ChloraPrep skin solution. Standard arthroscopic portals made by using a 11 blade knife for the anterior lateral portal 1st. Capsule penetrated bluntly. Camera and inflow started. The below operative findings noted. Intra-articular visualization used to position the anterior medial portal using 22 gauge spinal needle. A 11 blade knife used for the skin and blunt penetration of the capsule. 4.7 millimeter arthroscopic shaver introduced and partial medial meniscectomy of the loose and torn portion performed. Edge of meniscus completed with arthroscopic Wand. Arthroscopic Wand used to perform chondroplasty of the patellofemoral articulation and the medial femoral condyle. Shaver reintroduced and a synovectomy performed of the anterior fat pad and extensive synovium as well as medial and lateral plica. Bleeding points coagulated with Wand. Knee inspected, no loose pieces noted. 1 liter of irrigant infused and suction out. Arthroscopic cannulas removed. Skin closed with 4 nylon interrupted suture. Local anesthetic with 0.25% Marcaine. Sterile dressing applied. Patient awoken from anesthesia, extubated and taken to recovery room in stable condition. All sponge needle and instrument counts correct at the end of the case. Anesthesia: GETA Surgeon: Tyrell Aranda MD Estimated blood loss (mL): 5 Tourniquet time (min): 0 Drains: No Packing: No Pathology: none sent Complications: None Condition: stable Disposition: PACU Findings: Left knee arthroscopy with radial tear of the medial meniscus at the junction of the body and posterior horn. Grade 3 chondromalacia medial femoral condyle. Grade 4 chondromalacia of the medial tibial plateau. ACL with degenerative mild tearing but otherwise intact. PCL intact. Patella with grade 3 chondromalacia of the distal pole. Femoral trochlea with grade 1 chondromalacia. Lateral compartment intact. Moderate anterior synovitis with medial and lateral plica.
[2020-10-20] MEDS: fentaNYL CITRATE INJ (*CRX) 100 MCG/2 ML VIAL 25 MCG IV PUSH ×2 (11:25→11:33)
[2020-10-20 13:13] LABS: Glucose Point of Care 129 (65-105)
== END 2020-10-20 12:48 | disposition home or self-care (01) ==
PROVIDERS: Anesthesiology; PCP Family Medicine; Visit Provider Orthopaedic Surgery
PROC: (CPT 29870; principal; 2020-10-20 09:30)
DX: M23.332 Other meniscus derangements, other medial meniscus, left knee (principal); I10 Essential (primary) hypertension; E11.9 Type 2 diabetes mellitus without complications; E78.00 Pure hypercholesterolemia, unspecified; G47.33 Obstructive sleep apnea (adult) (pediatric); J45.909 Unspecified asthma, uncomplicated; K21.9 Gastro-esophageal reflux disease without esophagitis; L40.9 Psoriasis, unspecified; M47.812 Spondylosis without myelopathy or radiculopathy, cervical region; Z87.891 Personal history of nicotine dependence
CPT/HCPCS: 29881; 36415; 85610; 85730; 97116; A9270; C9803; J0690; J1100; J2250; J2405; J2704; J3010; J7120; U0003; U0005

== ENCOUNTER 2020-10-27 12:31 | Outpatient (CLI) | payer MEDICARE, MEDICAID, SELFPAY ==
--- NOTE | ~2020-10-27 | XR_ITS ---
XR knee LT 3V DATE: 10/27/2020 13:01 INDICATION: Postoperative one week TECHNIQUE: 4 views COMPARISON: 07/28/2020 left knee FINDINGS: There is distention of the suprapatellar bursa consistent with knee joint effusion. Diffuse osteopenia. There is mild osteoarthritis at the patellofemoral joint. No fracture or dislocation, periosteal reaction or bone destruction is detected. No radiopaque intra- articular loose body or chondrocalcinosis is detected. IMPRESSION: Mild osteoarthritis at the patellofemoral joint Osteoarthritis Reviewed, dictated and finalized at location A.
== END 2020-10-27 12:32 | disposition home or self-care (01) ==
PROVIDERS: PCP Family Medicine; Visit Provider Orthopaedic Surgery
DX: Z47.89 Encounter for other orthopedic aftercare (principal); M17.12 Unilateral primary osteoarthritis, left knee
CPT/HCPCS: 73562

== ENCOUNTER 2020-10-31 08:07 | Outpatient (CLI) | payer MEDICARE, MEDICAID, SELFPAY ==
[2020-10-31 17:26] LABS: Add Urine Microscopic? YES; Appearance Urine Cloudy (Clear); Bilirubin Urine Negative (Negative); Blood Urine Negative (Negative); Color Urine Yellow (Yellow); Glucose Urine UA Negative (Negative); Ketones Urine Negative (Negative); Leukocyte Esterase Ur Negative LEU/UL (Negative); Mucus Urine Rare /lpf; Nitrate Urine Negative (Negative); Protein Urine 1+ mg/dL (Negative); RBC Urine 0-2 /hpf (0-2); Specific Grav Ur 1.021 (1.001-1.035); Squamous Epithelial Cell Urine Rare /hpf (Few); Uric Acid Crystals Urine Present /hpf; Urobilinogen Urine Negative mg/dL (<2.0); WBC Urine 0-3 /hpf
[2020-10-31 17:33] LABS: Hemoglobin A1C 6.1 % (<5.7)
[2020-10-31 17:35] LABS: Anion Gap 6 mmol/L (8-16); Blood Urea Nitrogen 14 mg/dL (7-17); Calcium 8.8 mg/dL (8.4-10.2); Carbon Dioxide 29 mmol/L (22-30); Chloride 106 mmol/L (98-107); Estimated Glomerular Filt Rate 37; Glucose 144 mg/dL (65-105); Magnesium 1.5 mg/dL (1.6-2.3); Potassium 3.9 mmol/L (3.4-5.0); Sodium 141 mmol/L (137-145)
[2020-10-31 17:39] LABS: Iron 42 ug/dL (37-170)
[2020-10-31 17:42] LABS: Transferrin 276 mg/dL (206-381)
[2020-10-31 17:48] LABS: Percent Iron Saturation 11 % (20-50)
[2020-10-31 17:52] LABS: Creatinine Urine 238.6 mg/dL; Total Protein Urine Random 7 mg/dL; Ur Ttl Prot Creatinine Ratio 0.03 mg/mg (0-0.20)
[2020-10-31 17:56] LABS: MALB Creatinine Ratio 11.5 mg/g (0-30); Microalbumin Urine Random 27.5 mg/L (0-16.7)
[2020-10-31 18:41] LABS: Folic Acid 10.2 ng/mL (2.76->20)
== END 2020-10-31 08:08 | disposition home or self-care (01) ==
LOC: ANHBWCLAB 08:10
PROVIDERS: PCP Family Medicine; Visit Provider Internal Medicine Nephrology
DX: D50.9 Iron deficiency anemia, unspecified (principal); D63.1 Anemia in chronic kidney disease; E11.9 Type 2 diabetes mellitus without complications; N39.0 Urinary tract infection, site not specified; E55.9 Vitamin D deficiency, unspecified; I10 Essential (primary) hypertension
CPT/HCPCS: 36415; 80069; 81001; 82043; 82306; 82570; 82607; 82728; 82746; 83036; 83540; 83550; 83735; 84156; 84466

== ENCOUNTER 2020-12-03 14:06 | Outpatient (CLI) | payer MEDICARE, MEDICAID, SELFPAY ==
[2020-12-03 14:36] LABS: Basophils Percent Auto 0.3 % (0.2-1.2); Eosinophils Absolute Auto 0.7 K/mm3 (0-0.3); Eosinophils Percent Auto 5.5 % (0-4.4); Hematocrit 34.6 % (37.0-47.0); Hemoglobin 10.7 g/dL (12.0-15.0); Immature Granulocyte Absolute 0.07 K/mm3 (0.00-0.031); Immature Granulocyte Percent A 0.6 % (0-0.5); Lymphocytes Percent Auto 17.5 % (18.3-44.2); Mean Corpuscular HGB Conc 30.9 g/dl (32-36); Mean Corpuscular Hemoglobin 25.6 pg (26-34); Mean Corpuscular Volume 82.8 fl (80-100); Mean Platelet Volume 8.5 fl (7.4-10.4); Monocytes Absolute Auto 0.8 K/mm3 (0.1-0.6); Monocytes Percent Auto 6.5 % (2.6-8.5); Neutrophils Absolute Auto 8.8 K/mm3 (1.3-6.7); Neutrophils Percent Auto 69.6 % (45.5-73.1); Platelet Count Result 231 k/mm3 (150-375); Red Blood Count 4.18 M/mm3 (4.2-5.4); Red Cell Distribution Width 14.5 % (11.5-14.5); White Blood Count 12.6 K/mm3 (4.5-10.0)
[2020-12-03 16:47] LABS: Iron 42 ug/dL (37-170)
[2020-12-03 16:51] LABS: Alanine Aminotransferase 11 U/L (4-35); Alkaline Phosphatase 107 U/L (38-126); Anion Gap 8 mmol/L (8-16); Aspartate Amino Transferase 20 U/L (14-36); Bilirubin,Total 0.4 mg/dL (0.2-1.3); Blood Urea Nitrogen 13 mg/dL (7-17); Calcium 9.5 mg/dL (8.4-10.2); Carbon Dioxide 29 mmol/L (22-30); Chloride 104 mmol/L (98-107); Estimated Glomerular Filt Rate 37; Glucose 121 mg/dL (65-105); Potassium 3.9 mmol/L (3.4-5.0); Sodium 141 mmol/L (137-145)
[2020-12-03 16:58] LABS: Percent Iron Saturation 11 % (20-50)
[2020-12-03 17:57] LABS: Folic Acid 8.5 ng/mL (2.76->20)
[2020-12-09 11:01] LABS: Soluble Transferrin Receptor 1.81 mg/L (0.76-1.76)
== END 2020-12-03 14:07 | disposition home or self-care (01) ==
LOC: ANHLAB 14:18
PROVIDERS: PCP Family Medicine; Visit Provider Internal Medicine Hematology & Oncology
DX: D64.9 Anemia, unspecified (principal)
CPT/HCPCS: 36415; 80053; 82607; 82728; 82746; 83540; 83550; 84238; 84443; 85025

== ENCOUNTER 2020-12-17 12:37 | Outpatient (CLI) | payer MEDICARE, MEDICAID, SELFPAY ==
--- NOTE | ~2020-12-17 | XR_ITS ---
XR abdomen/kub 1V DATE: 12/17/2020 12:59 INDICATION: Renal stone follow-up TECHNIQUE: AP projection, 2 views COMPARISON: 06/2020 KUB 05/23/[address] abdomen pelvis FINDINGS: Surgical clips, right upper quadrant, consistent with cholecystectomy. No radiographic detectable urinary tract stones are confirmed. Noncontrast CT abdomen pelvis examinat ion would be more definitive for evaluation of urinary tract stones including radiographically occult stones. Surgical clips overlie the left pelvic area. Multiple calcified splenic granulomas. IMPRESSION: Status post cholecystectomy Postoperative change of left pelvic area Reviewed, dictated and finalized at Location A. Reviewed, dictated and finalized at location A.
== END 2020-12-17 12:38 | disposition home or self-care (01) ==
LOC: ANHBWCIMG 12:43
PROVIDERS: PCP Family Medicine; Visit Provider Urology
DX: N20.0 Calculus of kidney (principal); Z90.49 Acquired absence of other specified parts of digestive tract
CPT/HCPCS: 74018

== ENCOUNTER 2021-01-13 10:28 | Outpatient (CLI) | payer MEDICARE, MEDICAID, SELFPAY ==
--- NOTE | ~2021-01-13 | CT_ITS ---
EXAMINATION:CT lung screening DATE: 01/13/2021 10:53 INDICATION: Personal history of tobacco dependence. Smoker who quit 13 years ago with 40 pack year hi story. TECHNIQUE: Computed tomography (CT) of the chest was performed without intravenous contrast. Automate d exposure control and iterative reconstruction technique were employed. The dose-length product (DLP ) was 224.81 mGy-cm. COMPARISON: CT abdomen and pelvis 05/23/2020 FINDINGS: The visualized portions of the lung bases demonstrate mild atelectasis. There is a 5 mm nod ule in left lower lobe. Calcified left hilar and mediastinal lymph nodes are consistent with old gran ulomatous disease. No pleural effusion. The heart size is normal. There are coronary artery calcifica tions. No pericardial effusion. Calcifications in the liver and spleen are consistent with old granul omatous disease. There are changes of cholecystectomy. There are bridging endplate osteophytes at mul tiple levels in the spine, consistent with diffuse idiopathic skeletal hyperostosis (DISH). IMPRESSION: 1. Lung-RADS category 2: Benign appearance or behavior. Continue annual screening with noncontrast lo w-dose chest CT in 12 months. Reviewed, dictated and finalized at location A. IMPRESSION: 1. Lung-RADS category 2: Benign appearance or behavior. Continue annual screeni ng with noncontrast low-dose chest CT in 12 months.
== END 2021-01-13 10:29 | disposition home or self-care (01) ==
LOC: ANHIMG 10:30
PROVIDERS: PCP Family Medicine; Visit Provider Internal Medicine Critical Care Medicine
DX: Z12.2 Encounter for screening for malignant neoplasm of respiratory organs (principal); Z87.891 Personal history of nicotine dependence
CPT/HCPCS: 71271

== ENCOUNTER 2021-02-17 15:22 | Outpatient (CLI) | payer MEDICARE, MEDICAID, SELFPAY ==
[2021-02-17 16:53] LABS: Magnesium 1.8 mg/dL (1.6-2.3); Phosphorus 3.4 mg/dL (2.5-4.5)
[2021-02-17 17:09] LABS: Vitamin D 25 Hydroxy 20.6 ng/mL
== END 2021-02-17 15:23 | disposition home or self-care (01) ==
LOC: ANHLAB 15:33
PROVIDERS: Internal Medicine Nephrology; PCP Family Medicine; Visit Provider Internal Medicine Hematology & Oncology
DX: D63.1 Anemia in chronic kidney disease (principal); D50.9 Iron deficiency anemia, unspecified; E55.9 Vitamin D deficiency, unspecified; N18.32 Chronic kidney disease, stage 3b; E83.42 Hypomagnesemia
CPT/HCPCS: 36415; 82306; 83735; 84100

== ENCOUNTER 2021-03-25 14:04 | Outpatient (CLI) | payer MEDICARE, MEDICAID, SELFPAY ==
[2021-03-25 20:56] LABS: Vitamin B12 > 1000.0 pg/mL (239-931)
[2021-03-25 21:32] LABS: Hemoglobin A1C 5.8 % (<5.7)
== END 2021-03-25 14:05 | disposition home or self-care (01) ==
LOC: ANHBWCLAB 14:06
PROVIDERS: PCP Family Medicine; Visit Provider Family Medicine
DX: E53.8 Deficiency of other specified B group vitamins (principal); E11.21 Type 2 diabetes mellitus with diabetic nephropathy; E66.9 Obesity, unspecified; R20.9 Unspecified disturbances of skin sensation
CPT/HCPCS: 36415; 82607; 83036; 84443

== ENCOUNTER 2021-04-27 09:24 | Outpatient (CLI) | payer MEDICARE, MEDICAID, SELFPAY ==
[2021-04-27 19:59] LABS: Add Urine Microscopic? YES; Appearance Urine Clear (Clear); Bacteria Urine Trace /hpf; Bilirubin Urine Negative (Negative); Blood Urine Negative (Negative); Color Urine Yellow (Yellow); Glucose Urine UA Negative (Negative); Ketones Urine Negative (Negative); Leukocyte Esterase Ur Negative LEU/UL (NEGATIVE); Mucus Urine Rare /lpf; Nitrate Urine Negative (Negative); Protein Urine 1+ mg/dL (Negative); RBC Urine 0-2 /hpf (0-2); Specific Grav Ur 1.018 (1.001-1.035); Squamous Epithelial Cell Urine Rare /hpf (Few); Urobilinogen Urine Negative mg/dL (<2.0); WBC Urine 0-3 /hpf (0-3)
[2021-04-27 20:02] LABS: Albumin Level 4.4 g/dL (3.5-5.1); Anion Gap 10 mmol/L (8-16); Blood Urea Nitrogen 24 mg/dL (7-17); Calcium 9.3 mg/dL (8.4-10.2); Carbon Dioxide 24 mmol/L (22-30); Chloride 107 mmol/L (98-107); Estimated Glomerular Filt Rate 26; Glucose 140 mg/dL (65-110); Magnesium 1.6 mg/dL (1.6-2.3); Potassium 3.9 mmol/L (3.4-5.0); Sodium 141 mmol/L (137-145)
[2021-04-27 20:09] LABS: Complement C3 125 mg/dL (88-165)
[2021-04-27 20:17] LABS: Creatinine Urine 166.1 mg/dL; Total Protein Urine Random 22 mg/dL; Ur Ttl Prot Creatinine Ratio 0.13 mg/mg (0-0.20)
[2021-04-27 20:21] LABS: Vitamin D 25 Hydroxy 39.6 ng/mL
[2021-04-27 20:22] LABS: MALB Creatinine Ratio 13.2 mg/g (0-30)
[2021-04-27 20:47] LABS: Erythrocyte Sedimentation Rate > 140 mm/hr (0-20)
[2021-04-29 02:49] LABS: Kappa\\Lambda Light Chains 1.27 (0.26-1.65); Lambda Light Chain 42.6 mg/L (5.7-26.3)
[2021-04-30 06:16] LABS: Albumin 3.8 g/dL (3.8-4.8); Alpha 1 Globulin 0.4 g/dL (0.2-0.3); Beta 1 Globulin 0.5 g/dL (0.4-0.6); Gamma Globulin 0.8 g/dL (0.8-1.7); Protein, Total 6.9 g/dL (6.1-8.1)
== END 2021-04-27 09:25 | disposition home or self-care (01) ==
PROVIDERS: PCP Family Medicine; Visit Provider Internal Medicine Nephrology
DX: N17.9 Acute kidney failure, unspecified (principal); N18.30 Chronic kidney disease, stage 3 unspecified; G47.33 Obstructive sleep apnea (adult) (pediatric); I10 Essential (primary) hypertension; Z86.2 Personal history of diseases of the blood and blood-forming organs and certain disorders involving the immune mechanism; E11.22 Type 2 diabetes mellitus with diabetic chronic kidney disease; E78.00 Pure hypercholesterolemia, unspecified
CPT/HCPCS: 36415; 80069; 81001; 82043; 82306; 82570; 83735; 83883; 84155; 84156; 84165; 84443; 85652; 86160

== ENCOUNTER 2021-05-19 09:22 | Outpatient (CLI) | payer MEDICARE, MEDICAID, SELFPAY ==
[2021-05-19 09:43] LABS: Hematocrit 33.6 % (37.0-47.0); Hemoglobin 10.7 g/dL (12.0-15.0); Mean Corpuscular HGB Conc 31.8 g/dl (32-36); Mean Corpuscular Hemoglobin 28.8 pg (26-34); Mean Corpuscular Volume 90.3 fl (80-100); Mean Platelet Volume 8.3 fl (7.4-10.4); Platelet Count Result 186 k/mm3 (150-375); Red Blood Count 3.72 M/mm3 (4.2-5.4); Red Cell Distribution Width 14.5 % (11.5-14.5); White Blood Count 12.2 K/mm3 (4.5-10.0)
[2021-05-19 10:23] LABS: Basophils Absolute Auto 0.1 K/mm3 (0.0-0.1); Basophils Percent Auto 0.6 % (0.2-1.2); Eosinophils Absolute Auto 0.6 K/mm3 (0-0.3); Eosinophils Percent Auto 4.6 % (0-4.4); Immature Granulocyte Absolute 0.14 K/mm3 (0.00-0.031); Immature Granulocyte Percent A 1.1 % (0-0.5); Lymphocytes Absolute Auto 2.14 K/mm3 (0.9-3.2); Lymphocytes Percent Auto 17.3 % (18.3-44.2); Monocytes Absolute Auto 0.8 K/mm3 (0.1-0.6); Monocytes Percent Auto 6.4 % (2.6-8.5); Neutrophils Absolute Auto 8.7 K/mm3 (1.3-6.7)
[2021-05-19 11:00] LABS: Add Urine Microscopic? NO; Appearance Urine Clear (Clear); Bilirubin Urine Negative (Negative); Blood Urine Negative (Negative); Color Urine Yellow (Yellow); Glucose Urine UA Negative (Negative); Ketones Urine Negative (Negative); Leukocyte Esterase Ur Negative LEU/UL (Negative); Nitrate Urine Negative (Negative); Protein Urine Negative (Negative); Specific Grav Ur 1.015 (1.001-1.035); Urobilinogen Urine Negative mg/dL (<2.0)
[2021-05-19 11:05] LABS: Alanine Aminotransferase 13 U/L (4-35); Albumin Level 4.2 g/dL (3.5-5.1); Alkaline Phosphatase 100 U/L (38-126); Aspartate Amino Transferase 19 U/L (14-36); Bilirubin,Total 0.5 mg/dL (0.2-1.3); Blood Urea Nitrogen 19 mg/dL (7-17); CRP 0.8 mg/dL (<1.0); Calcium 9.8 mg/dL (8.4-10.2); Chloride 107 mmol/L (98-107); Estimated Glomerular Filt Rate 26; Glucose 139 mg/dL (65-110); Potassium 4.1 mmol/L (3.4-5.0); Sodium 141 mmol/L (137-145)
[2021-05-19 11:59] LABS: Erythrocyte Sedimentation Rate 84 mm/hr (0-20)
[2021-05-19 12:00] LABS: Anion Gap 10 mmol/L (8-16); Carbon Dioxide 24 mmol/L (22-30)
== END 2021-05-19 09:23 | disposition home or self-care (01) ==
LOC: ANHLAB 09:24
PROVIDERS: Visit Provider Internal Medicine
DX: R70.0 Elevated erythrocyte sedimentation rate (principal); M19.90 Unspecified osteoarthritis, unspecified site
CPT/HCPCS: 36415; 80053; 81003; 85025; 85027; 85652; 86140

== ENCOUNTER 2021-06-09 08:49 | Outpatient (CLI) | payer MEDICARE, MEDICAID, SELFPAY ==
[2021-06-09 19:24] LABS: Hemoglobin A1C 5.6 % (<5.7)
[2021-06-09 19:30] LABS: Albumin Level 3.8 g/dL (3.5-5.1); Anion Gap 10 mmol/L (8-16); Blood Urea Nitrogen 32 mg/dL (7-17); Calcium 9.5 mg/dL (8.4-10.2); Carbon Dioxide 21 mmol/L (22-30); Chloride 107 mmol/L (98-107); Estimated Glomerular Filt Rate 28; Glucose 118 mg/dL (65-110); Magnesium 1.7 mg/dL (1.6-2.3); Phosphorus 4.6 mg/dL (2.5-4.5); Sodium 138 mmol/L (137-145)
[2021-06-09 20:29] LABS: Vitamin D 25 Hydroxy 53.1 ng/mL
== END 2021-06-09 08:50 | disposition home or self-care (01) ==
PROVIDERS: PCP Family Medicine; Visit Provider Internal Medicine Nephrology
DX: I12.9 Hypertensive chronic kidney disease with stage 1 through stage 4 chronic kidney disease, or unspecified chronic kidney disease (principal); N18.30 Chronic kidney disease, stage 3 unspecified; G47.33 Obstructive sleep apnea (adult) (pediatric); E11.22 Type 2 diabetes mellitus with diabetic chronic kidney disease; E78.00 Pure hypercholesterolemia, unspecified; N20.0 Calculus of kidney; Z86.2 Personal history of diseases of the blood and blood-forming organs and certain disorders involving the immune mechanism
CPT/HCPCS: 36415; 80069; 82306; 83036; 83735

== ENCOUNTER → 2021-06-13 00:09 | Outpatient (CLI) | payer MEDICARE, MEDICAID, SELFPAY ==
[2021-06-13 19:57] LABS: SARS-CoV-2 RNA PCR Negative
== END ==
PROVIDERS: PCP Family Medicine; Visit Provider Internal Medicine Critical Care Medicine
DX: Z20.822 Contact with and (suspected) exposure to COVID-19 (principal)
CPT/HCPCS: C9803; U0003; U0005

== ENCOUNTER 2021-06-16 07:45 | Outpatient (CLI) | payer MEDICARE, MEDICAID, SELFPAY ==
--- NOTE | 2021-07-01 15:56 | WPDSLEEPSTUD ---
Sleep Study Date of Study: 06/16/21 <Anais Gil DO - Last Filed: 07/01/21 16:41> Ordering Provider: Shima Patton MD <Anais Gil DO - Last Filed: 07/01/21 16:41> Interpreting Physician: Anais Gil DO <Anais Gil DO - Last Filed: 07/01/21 16:41> Sleep Study Type: Split Polysomnogram <Anais Gil DO - Last Filed: 07/01/21 16:41> Height: 1.57 m <Anais Gil DO - Last Filed: 07/01/21 16:41> Weight: 97.522 kg <Anais Gil DO - Last Filed: 07/01/21 16:41> Body Mass Index: 39.3 <Anais Gil DO - Last Filed: 07/01/21 16:41> Neck Circumference (inches): 18 <Anais Gil DO - Last Filed: 07/01/21 16:41> [place]: 10 <Anais Gil DO - Last Filed: 07/01/21 16:41> Reason for Sleep Study Patient has known MADDY on BPAP with oxygen. She had COVID and has had poor sleep since then. The patient's BPAP is over 10 years old. 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 She frequently awakens from sleep short of breath. She rarely awakens at night with heartburn, belching or cough. She constantly snores and is occasionally loud enough that others complain. She occasionally has trouble breathing when she has a cold. She frequently wakes up gasping for air throughout the night. She frequently has breathing problems at night observed by others. She occasionally sweats excessively at night. She occasionally notices heart palpitations or irregular heartbeats during the night. She occasionally falls asleep during the day but never while driving. She denies having trouble at work due to sleepiness. She rarely feels unable to move while waking up or falling asleep. She occasionally experiences vivid dreamlike scenes upon awakening or falling asleep. She frequently has nightmares. She rarely has thoughts racing through her mind. She denies feeling sad, depressed or anxious. She rarely notices parts of her body jerk. She occasionally kicks during the night. She occasionally has crawling and aching feelings in her legs and frequently has leg pain during the night. She denies grinding her teeth during sleep and awakening with jaw pain in the morning. She occasionally is bothered by pain during the day and occasionally awakened by pain during the night. She occasionally wakes up feeling stiff in the morning with sore and achy muscles. She goes to bed at 10:00 p.m. on both weekdays and weekends. It takes her a minimum of an hour to fall asleep. She wakes up at least 3 times per night for unknown reasons. It typically takes her 30 minutes to fall back asleep. She wakes up at 5:00 a.m. on both weekdays and weekends. She typically gets 6 hours of sleep per night. She will stay in bed for at least an hour after waking up in the morning. She currently lives with a roommate. She does not consume any caffeinated beverages within 2 hours of bedtime. She does not engage in physical exercise before bedtime. She does read and watch television before falling asleep. She does take naps in the afternoon or the evening but they are not refreshing. She drinks 2 cups of caffeinated beverage per day. She denies tobacco, alcohol and recreational drug use. <Anais Gil DO - Last Filed: 07/01/21 16:41> [facility] Past Medical History Medical History: Medical History Acute medial meniscus tear of left knee Anemia Arthritis Asthma rescue inhaler Chronic neck pain MRI of cervical spine demonstrated [id number] cervical spondylosis C5 through C7, left foraminal narrowing and mode
[2021-07-01 16:05] VITALS: BMI 39.3
== END 2021-06-17 06:33 | disposition home or self-care (01) ==
LOC: ANHCSM 07:45
PROVIDERS: PCP Family Medicine; Visit Provider Internal Medicine Critical Care Medicine
DX: G47.33 Obstructive sleep apnea (adult) (pediatric) (principal)
CPT/HCPCS: 95811

== ENCOUNTER 2021-06-24 14:36 | Outpatient (CLI) | payer MEDICARE, MEDICAID, SELFPAY ==
--- NOTE | ~2021-06-24 | XR_ITS ---
EXAMINATION: XR knee LT min 4V EXAM DATE: 06/24/2021 14:55 INDICATION: Pain left knee, without injury. TECHNIQUE: Left knee lateral, frontal AP, frontal PA tunnel, sunrise projections. Images obtained upr [facility]. Comparison is made to prior examination from 10/27/2020. FINDINGS: No evidence osteochondral defect or joint body in the left knee joint. Mild to moderate loss of the right tibiofemoral compartment joint space. There are no acute fractures or dislocations identified. There is no subcutaneous gas. The soft tissue is unremarkable, no sizable joint effusio n. There are no radiopaque foreign bodies. IMPRESSION: Mild to moderate left medial tibiofemoral compartment osteoarthritis. Reviewed, dictated and finalized at location A. 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
== END 2021-06-24 14:37 | disposition home or self-care (01) ==
PROVIDERS: PCP Family Medicine; Visit Provider Family Medicine
DX: M25.562 Pain in left knee (principal)
CPT/HCPCS: 73564

== ENCOUNTER 2021-07-14 14:42 | Outpatient (CLI) | payer MEDICARE, MEDICAID, SELFPAY ==
--- NOTE | ~2021-07-14 | MM_ITS ---
EXAMINATION: MM screening geovanny BI w ramo HISTORY: Screening TECHNIQUE: Craniocaudal and mediolateral oblique 3-D tomosynthesis images were obtained and synthetic 2-D images were generated. CAD analysis was submitted and interpreted. COMPARISON: No prior mammogram is available for comparison at this institution. BREAST PARENCHYMAL COMPOSITION: There are scattered areas of fibroglandular density. FINDINGS: There are bilateral nodular asymmetries in the outer aspect of the right breast and upper o uter quadrant of the left breast. There are benign bilateral breast calcifications. IMPRESSION: 1. Bilateral breast asymmetries. 2. Recommend comparison to previous outside mammograms. BI-RADS Category 0: Incomplete: Needs additional imaging evaluation. Reviewed, dictated and finalized at location A. 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
== END 2021-07-14 14:43 | disposition home or self-care (01) ==
PROVIDERS: PCP Family Medicine; Visit Provider Family Medicine
DX: Z12.31 Encounter for screening mammogram for malignant neoplasm of breast (principal); R92.8 Other abnormal and inconclusive findings on diagnostic imaging of breast
CPT/HCPCS: 77063; 77067

== ENCOUNTER → 2021-07-25 00:21 | Outpatient (CLI) | payer MEDICARE, MEDICAID, SELFPAY ==
[2021-07-25 22:40] LABS: SARS-CoV-2 RNA PCR Negative
== END ==
PROVIDERS: PCP Family Medicine; Visit Provider Internal Medicine Gastroenterology
DX: Z01.812 Encounter for preprocedural laboratory examination (principal); Z20.822 Contact with and (suspected) exposure to COVID-19
CPT/HCPCS: C9803; U0003; U0005

== ENCOUNTER 2021-07-29 00:59 | Day surgery (SDC) | payer MEDICARE, MEDICAID, SELFPAY ==
[2021-07-14 08:35] VITALS: BMI 40.3
[2021-07-29 09:26] VITALS: BP 127/63; PULSE 105; RESP 22; TEMP 37.2; O2SAT 100
[2021-07-29] MEDS: LACTATED RINGERS 1,000 ML 150 ML IV CONT (09:32)
--- NOTE | 2021-07-29 09:40 | PM.HPGS ---
History of Present Illness History of Present Illness Consent: Risks, benefits, and alternatives have been discussed and questions answered. Patient agrees to proceed with procedure. Chief complaint: anemia Narrative: Edith Mayo is a 71 year old female with ckd, chronic anemia seeing hematology, last EGD and colonoscopy about 5 years ago, denies overt gib Review of Systems Constitutional: Constitutional: Denies headache(s) and Denies weakness Eyes: Eyes: Denies blurry vision ENT: Reports Normal hearing present, Denies headache(s) and Denies neck pain Cardiovascular: Cardiovascular: Denies chest pain and Denies dyspnea Respiratory: Respiratory: Denies dyspnea Gastrointestinal: Gastrointestinal: Reports no additional gastrointestinal complaints Genitourinary: Genitourinary: Denies dysuria Musculoskeletal: Musculoskeletal: Denies neck pain Integumentary/Breasts: Skin/Breast: Denies dry skin Neurologic: Reports Normal hearing present, Denies headache(s) and Denies weakness Psychiatric: Psychiatric: Denies anxiety Endocrine: Endocrine: Denies change in body appearance Hematologic/Lymphatic: Hematologic/Lymphatic: Denies easy bleeding Allergic/Immunologic: Allergic/Immunologic: Denies urticaria PMFSH Past Medical History Medical History Acute medial meniscus tear of left knee Anemia Arthritis Asthma rescue inhaler Chronic neck pain MRI of cervical spine demonstrated [id number] cervical spondylosis C5 through C7, left foraminal narrowing and moderate right foraminal narrowing C5-C6, spinal stenosis with minimal flattening along the ventral cord C5 through C7. Claustrophobia Degenerative arthritis of left knee Diabetes (~2007) NIDDM Generalized osteoarthritis of multiple sites GERD (gastroesophageal reflux disease) takes med Headache (~04/2019) Hx of nephrolithotomy with removal of calculi Hypercholesterolemia Hypertension (~2016) Incontinence Iron deficiency anemia Kidney disease Kidney stones most recent kidney stone April 2019 Morbid obesity Obstructive sleep apnea MADDY (obstructive sleep apnea) cpap for over 10 years Psoriasis Screening for breast cancer Wears glasses Surgical History Surgical History H/O colonoscopy History of appendectomy History of bilateral tubal ligation History of cataract surgery Bilateral History of lithotripsy History of total abdominal hysterectomy and bilateral salpingo-oophorectomy due to dysfunctional uterine bleeding Hx of cholecystectomy (Unknown) S/P cystoscopy with ureteral stent placement S/P dilatation of esophageal stricture with multiple EGDs and dilatations Family History Family History Grandparent Acute myocardial infarction Family history of malignant neoplasm Carcinoma of colon Mother Family history of liver disease Mother who in her late 50s of cirrhosis related to hepatitis C Father Leukemia father who in his 60s of leukemia. 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 She then went on disability when she had a nervous breakdown. She has 3 children who are all healthy. She is a former smoker and smoked at least 2 packs of cigarettes per day from the age of 17 to age 57. She rarely drinks alcohol and only in moderation. She has 3 (or 4) children who are all healthy. Smoking packs per day: 0 Smoking cigarettes per day: 0.0 Years smoked: 40 Smoking pack-years: 0.00 Smoking status: Never smoker Tobacco type: cigarettes Second hand tobacco smoke exposure: No Smoking end date: 07/18/06 Alcohol intake: never Alcohol use details: very rarely Substance use: never Substance use type: d
[2021-07-29 09:44] LABS: Glucose Point of Care 113 mg/dl (65-105)
--- NOTE | 2021-07-29 09:44 | WPDANESEPPF ---
Anes - Initial Pre Proc Eval Procedure: Operation Date: 07/29/21 10:45 Proposed Procedures p Esophagogastroduodenoscopy & Colonoscopy - Pramod Miller MD Date/Time: 07/29/21 09:44 Surgeon: Pramod Miller MD Pre Op Diagnosis: anemia Patient Data Age: 71 Gender: F Height: 1.57 m Weight: 97.5 kg Last Vital Signs Temp 99.0 F 07/29/21 09:26 Pulse 105 H 07/29/21 09:26 Resp 22 H 07/29/21 09:26 BP 127/63 07/29/21 09:26 Pulse Ox 100 07/29/21 09:26 Allergies Allergy/AdvReac Type Severity Reaction Status Date / Time tramadol Allergy Severe Hives Verified 07/29/21 09:25 atorvastatin AdvReac Severe Nausea and Verified 07/29/21 09:25 Vomiting pravastatin AdvReac Intermediate Nausea and Verified 07/29/21 09:25 Vomiting budesonide AdvReac Mild Muscle Verified 07/29/21 09:25 Spasms formoterol AdvReac Mild Muscle Verified 07/29/21 09:25 Spasms Home Medications Medication Instructions Recorded Confirmed Type albuterol sulfate [ProAir HFA] 1 inh INHALATION QID PRN 05/17/19 07/14/21 History Myrbetriq 25 mg PO PRN PRN 10/10/20 07/14/21 History blood sugar diagnostic #100 each 12/10/20 07/02/21 Rx Slofed 60 60 mg PO DAILY 12/30/20 07/14/21 History amlodipine 5 mg tablet 5 mg PO DAILY #90 tablet 03/12/21 07/14/21 Rx lisinopril 20 mg tablet 20 mg PO DAILY #90 tablet 03/12/21 07/14/21 Rx vitamin U51-mmiifup B1 100 mg-1 1 ml IM MONTHLY 05/01/21 07/14/21 History mg/mL intramuscular solution prednisone 5 mg tablet 5 mg PO DAILY #90 tablet 05/29/21 07/14/21 Rx glimepiride 1 mg tablet 1 mg PO DAILY #90 tablet 06/15/21 07/14/21 Rx lancets #100 ea 06/23/21 07/02/21 Rx Ozempic 0.25 mg SUBCUT WEEKLY #3 ml NS 06/24/21 07/14/21 Rx B-complex with vitamin C 1 tablet PO DAILY 07/02/21 07/14/21 History cholecalciferol (vitamin D3) 1,250 1,250 mcg PO WEEKLY 07/02/21 07/14/21 History mcg (50,000 unit) capsule Laboratory Tests 07/29/21 09:36 POC Capillary Glucose 113 mg/dl H mg/dl (65-105) Patient hx anesthesia problems: none Family hx anesthesia problems: none Results Review: All pre-operative results and documents have been reviewed as part of the pre-operative evaluation. [facility] Past Medical History Medical History Acute medial meniscus tear of left knee Anemia Arthritis Asthma rescue inhaler Chronic neck pain MRI of cervical spine demonstrated [id number] cervical spondylosis C5 through C7, left foraminal narrowing and moderate right foraminal narrowing C5-C6, spinal stenosis with minimal flattening along the ventral cord C5 through C7. Claustrophobia Degenerative arthritis of left knee Diabetes (~2007) NIDDM Generalized osteoarthritis of multiple sites GERD (gastroesophageal reflux disease) takes med Headache (~04/2019) Hx of nephrolithotomy with removal of calculi Hypercholesterolemia Hypertension (~2016) Incontinence Iron deficiency anemia Kidney disease Kidney stones most recent kidney stone April 2019 Morbid obesity Obstructive sleep apnea MADDY (obstructive sleep apnea) cpap for over 10 years Psoriasis Screening for breast cancer Wears glasses Surgical History Surgical History H/O colonoscopy History of appendectomy History of bilateral tubal ligation History of cataract surgery Bilateral History of lithotripsy History of total abdominal hysterectomy and bilateral salpingo-oophorectomy due to dysfunctional uterine bleeding Hx of cholecystectomy (Unknown) S/P cystoscopy with ureteral stent placement S/P dilatation of esophageal stricture with multiple EGDs and dilatations Family History Family History Grandparent Acute myocardial infarction Family history of malignant neoplasm Carcinoma of colon Mother Family history of liver disease Sandra
[2021-07-29 10:17] VITALS: BP 146/87; PULSE 95; RESP 28; O2SAT 97
--- NOTE | 2021-07-29 10:19 | SUR.OPER ---
EGD started at 0953 and ended at 0959. Colonoscopy started at 1003 and ended at 1016.
[2021-07-29 10:27] VITALS: BP 122/47; PULSE 98; RESP 20; O2SAT 99
[2021-07-29 10:37] VITALS: BP 121/49; PULSE 95; RESP 17; O2SAT 97
== END 2021-07-29 11:02 | disposition home or self-care (01) ==
PROVIDERS: PCP Family Medicine; Visit Provider Internal Medicine Gastroenterology
PROC: 0DJ08ZZ Inspection of Upper Intestinal Tract, Via Natural or Artificial Opening Endoscopic (ICD-10-PCS; CPT 43235; principal; 2021-07-29 10:45)
DX: Z12.11 Encounter for screening for malignant neoplasm of colon (principal); D50.9 Iron deficiency anemia, unspecified; K57.30 Diverticulosis of large intestine without perforation or abscess without bleeding; K64.8 Other hemorrhoids; K22.70 Barrett's esophagus without dysplasia; K21.00 Gastro-esophageal reflux disease with esophagitis, without bleeding; K44.9 Diaphragmatic hernia without obstruction or gangrene; K29.70 Gastritis, unspecified, without bleeding; R19.7 Diarrhea, unspecified; G47.33 Obstructive sleep apnea (adult) (pediatric); J45.909 Unspecified asthma, uncomplicated; E11.9 Type 2 diabetes mellitus without complications; L40.9 Psoriasis, unspecified; E78.00 Pure hypercholesterolemia, unspecified; I10 Essential (primary) hypertension; E66.01 Morbid (severe) obesity due to excess calories; Z68.39 Body mass index [BMI] 39.0-39.9, adult; M47.812 Spondylosis without myelopathy or radiculopathy, cervical region; M19.90 Unspecified osteoarthritis, unspecified site; Z20.822 Contact with and (suspected) exposure to COVID-19; Z79.51 Long term (current) use of inhaled steroids; Z79.84 Long term (current) use of oral hypoglycemic drugs; Z87.891 Personal history of nicotine dependence
CPT/HCPCS: 43239; G0121; 82948; 88305; 88313; C9803; J0461; J2370; J2704; J7120; U0003; U0005

== ENCOUNTER 2021-09-07 08:11 | Outpatient (CLI) | payer MEDICARE, MEDICAID, SELFPAY ==
[2021-09-07 20:02] LABS: Albumin Level 3.9 g/dL (3.5-5.1); Anion Gap 11 mmol/L (8-16); Blood Urea Nitrogen 21 mg/dL (7-17); Calcium 9.2 mg/dL (8.4-10.2); Carbon Dioxide 23 mmol/L (22-30); Chloride 110 mmol/L (98-107); Estimated Glomerular Filt Rate 25; Glucose 112 mg/dL (65-110); Iron 60 ug/dL (37-170); Magnesium 1.5 mg/dL (1.6-2.3); Phosphorus 3.7 mg/dL (2.5-4.5); Potassium 3.8 mmol/L (3.4-5.0); Sodium 144 mmol/L (137-145)
[2021-09-07 20:06] LABS: Basophils Absolute Auto 0.1 K/mm3 (0.0-0.1); Basophils Percent Auto 0.5 % (0.2-1.2); Eosinophils Absolute Auto 0.4 K/mm3 (0-0.3); Eosinophils Percent Auto 2.9 % (0-4.4); Hematocrit 34.9 % (37.0-47.0); Hemoglobin 10.8 g/dL (12.0-15.0); Immature Granulocyte Percent A 0.7 % (0-0.5); Lymphocytes Absolute Auto 2.64 K/mm3 (0.9-3.2); Lymphocytes Percent Auto 19.4 % (18.3-44.2); Mean Corpuscular HGB Conc 30.9 g/dl (32-36); Mean Corpuscular Hemoglobin 29.9 pg (26-34); Mean Corpuscular Volume 96.7 fl (80-100); Mean Platelet Volume 9.5 fl (7.4-10.4); Monocytes Absolute Auto 0.8 K/mm3 (0.1-0.6); Monocytes Percent Auto 5.5 % (2.6-8.5); Neutrophils Absolute Auto 9.7 K/mm3 (1.3-6.7); Platelet Count Result 238 k/mm3 (150-375); Red Blood Count 3.61 M/mm3 (4.2-5.4); Red Cell Distribution Width 15.2 % (11.5-14.5); White Blood Count 13.6 K/mm3 (4.5-10.0)
[2021-09-07 20:09] LABS: Add Urine Microscopic? YES; Amorphous Sediment Urine Few; Appearance Urine Clear (Clear); Bilirubin Urine Negative (Negative); Blood Urine Negative (Negative); Color Urine Yellow (Yellow); Glucose Urine UA Negative (Negative); Ketones Urine Negative (Negative); Leukocyte Esterase Ur Trace LEU/UL (NEGATIVE); Mucus Urine Rare /lpf; Nitrate Urine Negative (Negative); Protein Urine Negative (Negative); RBC Urine 0-2 /hpf (0-2); Specific Grav Ur 1.016 (1.001-1.035); Squamous Epithelial Cell Urine Rare /hpf (Few); Uric Acid Crystals Urine Present /hpf; Urobilinogen Urine Negative mg/dL (<2.0)
[2021-09-07 20:12] LABS: Parathyroid Intact 70.5 pg/mL (7.5-53.5)
[2021-09-07 20:19] LABS: Creatinine Urine 146.9 mg/dL; Percent Iron Saturation 18 % (20-50); Total Protein Urine Random 7 mg/dL; Ur Ttl Prot Creatinine Ratio 0.05 mg/mg (0-0.20)
[2021-09-07 20:22] LABS: MALB Creatinine Ratio 10.6 mg/g (0-30); Microalbumin Urine Random 15.5 mg/L (0-16.7)
[2021-09-07 20:56] LABS: Vitamin D 25 Hydroxy 37.5 ng/mL
[2021-09-07 21:44] LABS: Vitamin B12 > 1000.0 pg/mL (239-931)
== END 2021-09-07 08:12 | disposition home or self-care (01) ==
PROVIDERS: PCP Family Medicine; Visit Provider Internal Medicine Nephrology
DX: N20.0 Calculus of kidney (principal); Z86.2 Personal history of diseases of the blood and blood-forming organs and certain disorders involving the immune mechanism; E11.22 Type 2 diabetes mellitus with diabetic chronic kidney disease; E78.00 Pure hypercholesterolemia, unspecified; N18.30 Chronic kidney disease, stage 3 unspecified; N17.9 Acute kidney failure, unspecified; I12.9 Hypertensive chronic kidney disease with stage 1 through stage 4 chronic kidney disease, or unspecified chronic kidney disease
CPT/HCPCS: 36415; 80069; 81001; 82043; 82306; 82570; 82607; 82728; 83540; 83550; 83735; 83970; 84156; 85025

== ENCOUNTER 2021-09-18 12:25 | Inpatient (IN) | payer MEDICARE, MEDICAID, SELFPAY ==
[2021-09-18] VITALS (22 sets, daily range): BP systolic 93–166; BP diastolic 47–72; PULSE 87–109; RESP 16–20; TEMP 36.1–36.8; O2SAT 95–100; BMI 40.7
--- NOTE | ~2021-09-18 | XR_ITS ---
EXAMINATION: XR retrograde pyelo w/stent LT EXAM DATE: 09/18/2021 16:36 INDICATION: Left-sided kidney stone. TECHNIQUE: Fluoroscopy used during XR retrograde pyelo w/stent LT performed by Dr. Miko Huff MD, urologist. The radiologist Patric Bryan M.D. dictating this report of the image(s) available wa s not present for the procedure. Total fluoroscopic time of 23 seconds. The DAP for this procedure was 0.85 mGym2. A total of 8 images sent to PACS from the exam. FINDINGS: Left ureter was cannulated and injected. There is cluster of proximal ureteral filling defe cts which could be the ureteral stones seen on CT. Mild left hydronephrosis. A left-sided double-J ur eteral stent was placed. Correlate with procedure note. IMPRESSION: Left ureteral stones, mild hydronephrosis. Stent in position. Reviewed, dictated and finalized at location B. MACHINE OPERATOR
--- NOTE | ~2021-09-18 | CT_ITS ---
EXAMINATION: CT abdomen pelvis wo con DATE: 09/18/2021 14:21 INDICATION: Left flank pain. TECHNIQUE: Computed tomography (CT) of the abdomen and pelvis was performed without intravenous contr ast. Automated exposure control and iterative reconstruction technique were employed. The dose-length product was 1174.32 mGy-cm. COMPARISON: CT abdomen and pelvis 05/23/2020 FINDINGS: The visualized portions of the lung bases demonstrate mild atelectasis. There is a trace le ft pleural effusion. The heart size is normal. No pericardial effusion. There is a small sliding hiat al hernia. Calcifications in the liver and spleen are consistent with old granulomatous disease. Ther e are changes of cholecystectomy. The pancreas and adrenal glands are normal. There are 3 stones in r ight kidney measuring up to 8 mm. There are 2 stones in left kidney with the larger measuring 2 mm. T here is mild left hydronephrosis and hydroureter. There are approximately 9 stones in proximal left u reter measuring up to 4 mm. There is diverticulosis of the colon without evidence of diverticulitis. There are no dilated loops of bowel. The appendix is not visualized. There are no pathologically enla rged lymph nodes. There is no free intraperitoneal fluid. There is mild thoracolumbar spondylosis. IMPRESSION: 1. Approximately 9 stones in proximal left ureter measuring up to 4 mm with mild hydronephrosis and p roximal hydroureter. 2. Bilateral nonobstructing kidney stones. Reviewed, dictated and finalized at location A. PRESIDENT OF COMMUNICATIONS IMPRESSION: 1. Approximately 9 stones in proximal left ureter measuring up to 4 mm with mil d hydronephrosis and proximal hydroureter. 2. Bilateral nonobstructing kidney stones.
--- NOTE | ~2021-09-18 | XR_ITS ---
EXAMINATION: XR abdomen/kub 1V DATE: 09/18/2021 14:35 INDICATION: Left flank pain. TECHNIQUE: A supine view of the abdomen on 2 radiographs was obtained. COMPARISON: CT abdomen and pelvis 09/18/2021 FINDINGS: There are no dilated loops of bowel. There are surgical clips in left pelvis in right upper quadrant. Calcifications in the spleen are consistent with old granulomatous disease. IMPRESSION: 1. No visible urolithiasis. Reviewed, dictated and finalized at location A. BUSINESS PROFESSOR IMPRESSION: 1. No visible urolithiasis.
--- NOTE | ~2021-09-18 | XR_ITS ---
XR chest 1V portable DATE: 09/18/2021 13:57 INDICATION: Fever. Nausea and vomiting for 5 days. TECHNIQUE: Portable upright AP chest on 09/2021 at 1353 hours COMPARISON: 01/13/2021 CT lung screening FINDINGS: Cardiomegaly. Aortic arch calcification. There is pulmonary vascular redistribution which may indicate mild pulmonary venous hypertension. The re may be minimal atelectasis at the right lung base. The lungs otherwise appear clear. No pleural ef fusion or pneumothorax. Diffuse osteopenia. Degenerative spurring of the thoracic spine. IMPRESSION: Cardiomegaly, pulmonary vascular redistribution, which may indicate mild congestive nix e Possible minimal atelectasis at the right lung base Aortic calcification Osteopenia Reviewed, dictated and finalized at location A. NEERING AND DEVELOPMENT DIRECTOR IMPRESSION: Cardiomegaly, pulmonary vascular redistribution, which may indicate mild congestive change Possible minimal atelectasis at the right lung base Aortic calcification Osteopenia
[2021-09-18 13:38] LABS: Basophils Percent Auto 0.2 % (0.2-1.2); Eosinophils Percent Auto 0.1 % (0-4.4); Hematocrit 27.8 % (37.0-47.0); Hemoglobin 9.1 g/dL (12.0-15.0); Immature Granulocyte Percent A 1.2 % (0-0.5); Lymphocytes Absolute Auto 0.28 K/mm3 (0.9-3.2); Lymphocytes Percent Auto 3.3 % (18.3-44.2); Mean Corpuscular HGB Conc 32.7 g/dl (32-36); Mean Corpuscular Volume 91.7 fl (80-100); Mean Platelet Volume 9.4 fl (7.4-10.4); Monocytes Absolute Auto 0.7 K/mm3 (0.1-0.6); Monocytes Percent Auto 8.6 % (2.6-8.5); Neutrophils Absolute Auto 7.3 K/mm3 (1.3-6.7); Neutrophils Percent Auto 86.6 % (45.5-73.1); Platelet Count Result 129 k/mm3 (150-375); Red Blood Count 3.03 M/mm3 (4.2-5.4); Red Cell Distribution Width 14.2 % (11.5-14.5); White Blood Count 8.4 K/mm3 (4.5-10.0)
[2021-09-18 13:50] LABS: Alanine Aminotransferase 23 U/L (4-35); Albumin Level 3.4 g/dL (3.5-5.1); Alkaline Phosphatase 87 U/L (38-126); Anion Gap 12 mmol/L (8-16); Aspartate Amino Transferase 39 U/L (14-36); Bilirubin,Total 0.9 mg/dL (0.2-1.3); Blood Urea Nitrogen 47 mg/dL (7-17); Calcium 8.3 mg/dL (8.4-10.2); Carbon Dioxide 19 mmol/L (22-30); Chloride 101 mmol/L (98-107); Estimated CRCL calculation 7 ml/min; Estimated Glomerular Filt Rate 5; Glucose 251 mg/dL (65-110); Lipase 25 U/L (23-300); Potassium 4.1 mmol/L (3.4-5.0); Sodium 132 mmol/L (137-145)
--- NOTE | 2021-09-18 14:00 | ED.NAVMDI ---
HPI - Nausea/Vomiting/Diarrhea General Chief complaint: Nausea/Vomiting/Diarrhea Stated complaint: vomit Time Seen by Provider: 09/18/21 13:25 Source: patient and RN notes reviewed Mode of arrival: ambulatory Limitations: no limitations History of Present Illness HPI Narrative: This is a 71 year old female with history diabetes mellitus and hypertension who presents for evaluation of nausea and vomiting. Patient developed left flank pain on Tuesday, and she reports her pain was intermittent. This pain radiated to her left lower abdomen. She has history of kidney stones and this pain is similar. Her pain has resolved but she has been having nausea and vomiting since Tuesday. She states she has been unable to tolerate anything by mouth since Tuesday. She has not take any of her medications. She also reports having fever today of 101.2 F. She denies chest pain, cough or shortness of breath. She denies hematuria or dysuria. Related Data Home Medications Medication Instructions Recorded Confirmed albuterol sulfate [ProAir HFA] 1 inh INHALATION QID PRN 05/17/19 09/01/21 Myrbetriq 25 mg PO PRN PRN 10/10/20 09/01/21 Slofed 60 60 mg PO DAILY 12/30/20 09/01/21 vitamin F20-iedpelt B1 100 mg-1 1 ml IM MONTHLY 05/01/21 09/01/21 mg/mL intramuscular solution B-complex with vitamin C 1 tablet PO DAILY 07/02/21 09/01/21 cholecalciferol (vitamin D3) 1,250 1,250 mcg PO WEEKLY 07/02/21 09/01/21 mcg (50,000 unit) capsule Allergies Allergy/AdvReac Type Severity Reaction Status Date / Time tramadol Allergy Severe Hives Verified 09/18/21 16:21 atorvastatin AdvReac Severe Nausea and Verified 09/18/21 16:21 Vomiting pravastatin AdvReac Intermediate Nausea and Verified 09/18/21 16:21 Vomiting budesonide AdvReac Mild Muscle Verified 09/18/21 16:21 Spasms formoterol AdvReac Mild Muscle Verified 09/18/21 16:21 Spasms Review of Systems Review of Systems: All systems reviewed & are unremarkable except as noted in HPI and below Constitutional: Constitutional: Reports chills, Reports fever(s) and Reports weakness ENT: Denies nasal congestion Cardiovascular: Cardiovascular: Denies chest pain Respiratory: Respiratory: Denies cough and Denies dyspnea Gastrointestinal: Gastrointestinal: Reports abdominal pain, Reports diarrhea, Reports nausea and Reports vomiting Genitourinary: Genitourinary: Denies hematuria, Denies nocturia and Reports flank pain Musculoskeletal: Musculoskeletal: Reports back pain Neurologic: Reports dizziness and Reports weakness [facility] Past Medical History Medical History Acute medial meniscus tear of left knee Anemia Arthritis Asthma rescue inhaler Chronic neck pain MRI of cervical spine demonstrated [id number] cervical spondylosis C5 through C7, left foraminal narrowing and moderate right foraminal narrowing C5-C6, spinal stenosis with minimal flattening along the ventral cord C5 through C7. Claustrophobia Degenerative arthritis of left knee Diabetes (~2007) NIDDM Generalized osteoarthritis of multiple sites GERD (gastroesophageal reflux disease) takes med Headache (~04/2019) Hx of nephrolithotomy with removal of calculi Hypercholesterolemia Hypertension (~2016) Incontinence Iron deficiency anemia Kidney disease Kidney stones most recent kidney stone April 2019 Morbid obesity Obstructive sleep apnea MADDY (obstructive sleep apnea) cpap for over 10 years Psoriasis Screening for breast cancer Wears glasses Surgical History Surgical History H/O colonoscopy History of appendectomy History of bilateral tubal ligation History of cataract surgery Bilateral History of lithotripsy History of total abdominal hysterectomy and bilateral salpingo-oophorectomy due to dysfunctional uterine bleeding Hx of cholecystectomy (Unknown) S/P cystoscopy with ureteral s
[2021-09-18] MEDS: SODIUM CHLORIDE 0.9% IV 1,000 ML 999 ML IV CONT ×2 (14:01→15:20)
[2021-09-18] MEDS: ONDANSETRON INJ 4 MG/2 ML VIAL IV PUSH (14:01)
[2021-09-18 14:16] LABS: Lactic Acid Reflex 1.6 mmol/L (0.7-2.1)
[2021-09-18 14:38] LABS: NT Pro B Type Natriuretic Pept 5560 pg/mL (5-100)
[2021-09-18 14:44] LABS: SARS-CoV-2 RNA PCR Negative
--- NOTE | 2021-09-18 15:50 | PM.IMHP ---
H&P: HPI History of Present Illness Date/Time: 09/18/21 15:50 Chief Complaint: Nausea, vomiting, and left flank pain. Narrative: This is a pleasant 71-year-old female with history of kidney stones, hypertension, type 2 diabetes mellitus, chronic kidney disease, anemia, and sleep apnea who presented to the emergency department from home for evaluation of nausea, vomiting, and left flank pain. Since Tuesday she has had intermittent, colicky left flank pain similar to that which she has experienced with previous kidney stones. She has been taking Aleve once a day for the pain which seems to help though unfortunately she has since developed pretty consistent nausea and she has had multiple episodes of emesis each day since Tuesday. Yesterday she developed a fever up to 101.2? and she decided to come in today for evaluation as she has not been feeling any better. She was afebrile on arrival to the emergency department and her blood pressures have been running a bit soft but are stable. Labs showed an acute on chronic kidney injury with a BUN and creatinine of [address] of the abdomen and pelvis showed approximately 9 stones in the proximal left ureter measuring up to 4 mm with mild hydronephrosis and proximal hydroureter as well as bilateral nonobstructing kidney stones. At the time my evaluation her nausea is much better controlled and she is not in any significant pain. She is currently awaiting transport to OR. She denies sick contacts, cold and flu symptoms, chest pain, shortness of breath, hematemesis, melena, hematochezia, dysuria, and hematuria. Review of Systems Review of Systems: Twelve systems were reviewed. Glucose has been stable if not a bit lower than what she typically runs. She has not been able to hold down any medication and she really has not been able to hold down much in the way of liquids or solids either. She does complain of thirst. No blurry vision or polydipsia. Recent sleep study showed that she no longer required BiPAP and she is awaiting arrival of a new CPAP. Except as documented, all other systems were reviewed and are negative. [facility] Past Medical History Medical History (Updated 09/18/21 @ 20:20 by Alma Barajas PA-C) Anemia Asthma Chronic neck pain MRI of cervical spine demonstrated [id number] cervical spondylosis C5 through C7, left foraminal narrowing and moderate right foraminal narrowing C5-C6, spinal stenosis with minimal flattening along the ventral cord C5 through C7. Claustrophobia Degenerative arthritis of left knee Diastolic dysfunction Gastroesophageal reflux disease Generalized osteoarthritis of multiple sites Hypercholesterolemia Hypertension Incontinence Iron deficiency anemia Kidney disease Morbid obesity Non-insulin dependent type 2 diabetes mellitus Obstructive sleep apnea on CPAP Psoriasis Screening for breast cancer Wears glasses Surgical History Surgical History (Updated 09/18/21 @ 20:07 by Alma Barajas PA-C) History of appendectomy History of bilateral cataract extraction History of bilateral tubal ligation History of cholecystectomy History of colonoscopy History of esophageal dilatation History of lithotripsy History of total abdominal hysterectomy and bilateral salpingo-oophorectomy due to dysfunctional uterine bleeding Status post cystoscopy with ureteral stent placement Family History Family History Grandparent Acute myocardial infarction Family history of malignant neoplasm Carcinoma of colon Mother Family history of liver disease Mother who in her late 50s of cirrhosis related to hepatitis C Father Leukemia father who in his 60s of leukemia. Sibling Heart disease Social History Social History (Updated 09/18/21 @ 20:16 by Alma Barajas PA-C) Social History: She lives with a roommate in [place]. 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 Sh
[2021-09-18] MEDS: SODIUM CHLORIDE 0.9% IV 500 ML 30 ML IV CONT (16:10)
--- NOTE | 2021-09-18 16:11 | WPDUROPN2 ---
Progress Note: A&P Assessment and Plan (1) Left ureteral calculus: Code(s): N20.1 - Calculus of ureter Status: Acute (2) Acute kidney injury: Code(s): N17.9 - Acute kidney failure, unspecified Status: Acute (3) Chronic kidney disease: Code(s): N18.9 - Chronic kidney disease, unspecified Status: Acute Assessment and Plan: In light of her marked deterioration in renal function, with multiple obstructing left proximal ureteral stones, will proceed with cystoscopy and left ureteral stent placement today. Anticipate prompt improvement in renal function. Once we see that can consider urinary alkalinization in an attempt to dissolve within a be uric acid stones. Subjective Subjective Date/Time Seen: 09/18/21 16:11 Patient is a very pleasant 71-year-old who, unfortunately, is very well known to me with a long history of recurrent urolithiasis. She has not required any type of intervention since May 2020 and I have not seen her since last summer. She presents to the ER, however, with nausea vomiting and some mild intermittent left flank pain for several days. She reports a fever at home but had no documented fever significant leukocytosis P here. Laboratory evaluation, however, shows acute kidney in the injury on top of her chronic kidney disease. CT imaging demonstrates multiple obstructing left proximal ureteral calculi. Redjonnyossi acute kidney injury and obstructing left ureteral stones I will plan cystoscopy with ureteral stent placement. The stones may be uric acid ( given her urine pH of 5.0, radial lucent appearance KUB and you urate crystals in her urine). Once her renal function improves we may opt for a trial of urinary alkalinization. Review of Systems Cardiovascular: Cardiovascular: Denies chest pain, Denies lightheadedness, Denies palpitations and Denies dyspnea Respiratory: Respiratory: Denies dyspnea Gastrointestinal: Gastrointestinal: Denies diarrhea, Denies nausea and Denies vomiting Genitourinary: Genitourinary: Denies hematuria and Denies dysuria Endocrine: Endocrine: Denies palpitations Exam Const: General: no acute distress Resp: Effort & Inspection: normal respiratory effort GI: Inspection: non-distended GI Palp: No abdominal tenderness and No Guarding due to palpation present (GI) Auscultation: normal bowel sounds Objective Data Vital Signs Vital Signs: Vital Signs - 24 hr 09/18/21 12:52 09/18/21 13:20 09/18/21 13:21 Temperature 97.1 F L Pulse Rate 109 H Respiratory Rate 20 Blood Pressure 96/53 L 128/66 Pulse Oximetry 98 97 97 09/18/21 13:31 09/18/21 13:32 09/18/21 13:46 Temperature Pulse Rate Respiratory Rate Blood Pressure 144/69 H 166/66 H Pulse Oximetry 95 95 96 09/18/21 13:47 09/18/21 14:00 09/18/21 14:01 Temperature Pulse Rate Respiratory Rate Blood Pressure 140/72 Pulse Oximetry 96 96 96 09/18/21 15:42 Temperature Pulse Rate 102 H Respiratory Rate 16 Blood Pressure 140/72 Pulse Oximetry 96 Intake/Output Intake/Output: Intake & Output 09/15/21 09/16/21 09/17/21 09/18/21 23:59 23:59 23:59 23:59 Intake Total 1000 Balance 1000 Meds/Results Medications: Active Medications Generic Name Dose Route Start Last Admin Trade Name Freq PRN Reason Stop Dose Admin Acetaminophen 1,000 mg in 100 mls @ 400 mls/hr 09/18/21 15:28 Ofirmev 1,000 Mg Ivpb IVPB 09/19/21 15:27 Q6H PRN Mild Pain (1-3) or Fever Sodium Chloride 1,000 mls @ 125 mls/hr 09/18/21 15:30 Normal Saline Iv IV CONT .Q8H AQUILINO Ondansetron HCl 4 mg 09/18/21 15:28 Ondansetron Inj 4 Mg/2 Ml Vial IV PUSH Q4H PRN Nausea Radiology Results: ITS Impressions Chest X-Ray 09/18/21 13:58 IMPRESSION: Cardiomegaly, pulmonary vascular redistribution, which may indicate mild congestive change Possible minimal atelectasis at the right lung base Aortic calcification Oste
--- NOTE | 2021-09-18 16:11 | WPDANESEPPF ---
Anes - Initial Pre Proc Eval Procedure: Operation Date: 09/18/21 16:00 Proposed Procedures p Cystoscopy Left Stent Placement - Miko Huff MD Date/Time: 09/18/21 16:11 Surgeon: Refugio Pre Op Diagnosis: Left kidney stones Pre Op Diagnosis: Acute kidney disease/dehydration/left obstructive Patient Data Age: 71 Gender: F Height: 1.57 m Weight: 97.5 kg Last Vital Signs Temp 36.2 C L 09/18/21 12:52 Pulse 102 H 09/18/21 15:42 Resp 16 09/18/21 15:42 BP 140/72 09/18/21 15:42 Pulse Ox 96 09/18/21 15:42 Allergies Allergy/AdvReac Type Severity Reaction Status Date / Time tramadol Allergy Severe Hives Verified 09/01/21 11:46 atorvastatin AdvReac Severe Nausea and Verified 09/01/21 11:46 Vomiting pravastatin AdvReac Intermediate Nausea and Verified 09/01/21 11:46 Vomiting budesonide AdvReac Mild Muscle Verified 09/01/21 11:46 Spasms formoterol AdvReac Mild Muscle Verified 09/01/21 11:46 Spasms Home Medications Medication Instructions Recorded Confirmed Type albuterol sulfate [ProAir HFA] 1 inh INHALATION QID PRN 05/17/19 09/01/21 History Myrbetriq 25 mg PO PRN PRN 10/10/20 09/01/21 History blood sugar diagnostic #100 each 12/10/20 09/01/21 Rx Slofed 60 60 mg PO DAILY 12/30/20 09/01/21 History amlodipine 5 mg tablet 5 mg PO DAILY #90 tablet 03/12/21 09/01/21 Rx lisinopril 20 mg tablet 20 mg PO DAILY #90 tablet 03/12/21 09/01/21 Rx vitamin [id number] B1 100 mg-1 1 ml IM MONTHLY 05/01/21 09/01/21 History mg/mL intramuscular solution prednisone 5 mg tablet 5 mg PO DAILY #90 tablet 05/29/21 09/01/21 Rx glimepiride 1 mg tablet 1 mg PO DAILY #90 tablet 06/15/21 09/01/21 Rx lancets #100 ea 06/23/21 09/01/21 Rx B-complex with vitamin C 1 tablet PO DAILY 07/02/21 09/01/21 History cholecalciferol (vitamin D3) 1,250 1,250 mcg PO WEEKLY 07/02/21 09/01/21 History mcg (50,000 unit) capsule omeprazole 40 mg capsule,delayed 40 mg PO DAILY #30 cap 07/29/21 09/01/21 Rx release semaglutide 1 mg/dose (4 mg/3 mL) 1 mg SUBCUT WEEKLY 90 Days #9.75 ml 08/04/21 09/01/21 Rx subcutaneous pen injector topiramate 25 mg tablet 25 mg PO DAILY #90 tablet 08/04/21 09/01/21 Rx Laboratory Tests 09/18/21 09/18/21 09/18/21 13:27 13:27 13:27 WBC 8.4 K/mm3 K/mm3 (4.5-10.0) RBC 3.03 M/mm3 L M/mm3 (4.2-5.4) Hgb 9.1 g/dL L g/dL (12.0-15.0) Hct 27.8 % L % (37.0-47.0) MCV 91.7 fl fl (80-100) MCH 30.0 pg pg (26-34) MCHC 32.7 g/dl g/dl (32-36) RDW 14.2 % % (11.5-14.5) Plt Count 129 k/mm3 L k/mm3 (150-375) MPV 9.4 fl fl (7.4-10.4) Immature Gran % (Auto) 1.2 % H % (0-0.5) Neut % (Auto) 86.6 % H % (45.5-73.1) Lymph % (Auto) 3.3 % L % (18.3-44.2) [place] % (Auto) 8.6 % H % (2.6-8.5) Eos % (Auto) 0.1 % % (0-4.4) Baso % (Auto) 0.2 % % (0.2-1.2) Lymph # (Auto) 0.28 K/mm3 L K/mm3 (0.9-3.2) [place] # (Auto) 0.7 K/mm3 H K/mm3 (0.1-0.6) Eos # (Auto) 0.0 K/mm3 K/mm3 (0-0.3) Baso # (Auto) 0.0 K/mm3 K/mm3 (0.0-0.1) Abs Immat Gran (auto) 0.10 K/mm3 H K/mm3 (0.00-0.031) Absolute Neuts (auto) 7.3 K/mm3 H K/mm3 (1.3-6.7) Absolute Nucleated RBC 0.0 K/mm3 K/mm3 (0.0-0.012) Nucleated RBC % 0.0 % % (0.0-0.2) Sodium 132 mmol/L L mmol/L (137-145) Potassium 4.1 mmol/L mmol/L (3.4-5.0) Chloride 101 mmol/L mmol/L (98-107) Carbon Dioxide 19 mmol/L L mmol/L (22-30) Anion Gap 12 mmol/L mmol/L (8-16) BUN 47 mg/dL H D mg/dL (7-17) Creatinine 8.20 mg/dL H mg/dL (0.7-1.0) Estim Creat Clear Calc 7 ml/min ml/min Estimated GFR 5 L (59 - ) Glucose 251 mg/dL H mg/dL (65-110) Lactic Acid Calcium 8.3 mg/dL L mg/dL (8.4-10.2
--- NOTE | 2021-09-18 16:17 | WPDHPUPDATE1 ---
History and Physical Update Update Date/Time: 09/18/21 16:17 History and Physical has been reviewed, including an updated exam of the patient. There are NO changes in the patient's condition. Risks, benefits, and alternatives have been discussed and questions answered. Patient agrees to proceed with procedure.
--- NOTE | 2021-09-18 16:18 | WPDANESEFPP ---
Anes - Eval Final PreProcedure Day of Procedure 09/18/21 16:18 Patient weight: morbidly obese Heart: regular rate and rhythm Lungs: clear to auscultation Airway: Mallampati scale class 1 Neurological: alert and oriented Last oral intake: >/= 8 hours ASA classification: III Emergent: yes Anesthetic plan: proceed Anesthesia type and monitoring: general GIVS and standard monitoring Results Review: All pre-operative results and documents have been reviewed as part of the pre-operative evaluation. Informed Consent: The patient's anesthetic plan and its attendant risks and benefits were discussed with the patient/family/POA. Questions were solicited and answers provided to the satisfaction of the patient/family/POA.
[2021-09-18 16:48] LABS: Glucose Point of Care 206 mg/dl (65-105)
--- NOTE | 2021-09-18 16:52 | W.PM.PROC2 ---
Procedure Note - Detailed Date of Procedure 09/18/21 Pre-op Diagnosis Acute kidney disease, left ureteral stones Post-op Diagnosis Same Procedure Performed Cystoscopy, left retrograde pyelography and left ureteral stent placement Surgeon Miko Huff MD Anesthesia MAC Description of Procedure Patient brought to the operative suite where she was prepped and draped in routine sterile fashion while in dorsal lithotomy position. 2% xylocaine jelly was introduced intraurethrally and allowed to stand for an appropriate period of time. Systemic sedation is administered per the anesthesia department. Cystoscopy is undertaken with a 19 F rigid cystoscope. The bladder mucosa is normal, without hyperemia. There was no intravesical foreign body or neoplasm. An 8 F bulb-tipped catheter was used to obtain a left retrograde pyelogram. There were multiple filling defects in the left proximal ureter consistent with her known multiple ureteral stones. A 0.035 in glidewire was advanced in the left renal pelvis and a 4.8 F variable length stent is positioned with proximal coil in the renal pelvis and distal coil in the bladder. The scope was removed and a 16 F urethral catheter was placed to drainage. Patient was taken recovery room having tolerated this procedure well. Estimated Blood Loss 0 Drains Yes Packing No Pathology Yes Complications No immediate complications Condition Stable Disposition PACU
[2021-09-18] MEDS: SODIUM CHLORIDE 0.9% IV 1,000 ML 125 ML IV CONT (18:14)
[2021-09-18 18:37] LABS: Add Urine Microscopic? YES; Appearance Urine Turbid (Clear); Bacteria Urine 3+ /hpf; Bilirubin Urine Negative (Negative); Blood Urine 3+ (Negative); Budding Yeast Urine Present /hpf; Color Urine Yellow (Yellow); Glucose Urine UA Negative (Negative); Ketones Urine Negative (Negative); Leukocyte Esterase Ur 3+ LEU/UL (Negative); Mucus Urine Rare /lpf; Nitrate Urine Negative (Negative); Protein Urine 2+ mg/dL (Negative); RBC Urine >75 /hpf (0-2); Specific Grav Ur 1.005 (1.001-1.035); Urobilinogen Urine Negative mg/dL (<2.0); WBC Clumps Urine Present /HPF; WBC Urine >75 /hpf
--- NOTE | 2021-09-18 18:41 | ADMGEN ---
This patient, Edith Mayo, was admitted to Medical Room 349-01. Patient/family oriented to hospital policies and general routines including ID bracelet, bed and alarms, visiting hours, pain management, procedures, bathroom and other care routines, personal items, smoking policy, room service/diet, and visiting hours. Information on how to activate the Rapid Response Team has been discussed. Patient/Family are encouraged to report perceived risks to care and to ask questions if they do not understand what they are told or what they should do.
[2021-09-18 20:56] LABS: Anion Gap 7 mmol/L (8-16); Blood Urea Nitrogen 48 mg/dL (7-17); Calcium 7.6 mg/dL (8.4-10.2); Carbon Dioxide 21 mmol/L (22-30); Chloride 106 mmol/L (98-107); Creatine Kinase 32 U/L (30-135); Estimated CRCL calculation 8 ml/min; Estimated Glomerular Filt Rate 6; Glucose 173 mg/dL (65-110); Magnesium 1.3 mg/dL (1.6-2.3); Phosphorus 4.2 mg/dL (2.5-4.5); Sodium 134 mmol/L (137-145)
[2021-09-18 20:57] LABS: Hemoglobin A1C 5.6 % (<5.7)
[2021-09-18 21:05] LABS: Glucose Point of Care 184 mg/dl (65-105)
[2021-09-19] MEDS: SODIUM CHLORIDE 0.9% IV 1,000 ML 125 ML IV CONT (02:13)
[2021-09-19 03:58] VITALS: BP 106/72; PULSE 82; RESP 20; TEMP 36.7; O2SAT 98
[2021-09-19 05:26] LABS: Alanine Aminotransferase 19 U/L (4-35); Albumin Level 2.8 g/dL (3.5-5.1); Alkaline Phosphatase 66 U/L (38-126); Anion Gap 8 mmol/L (8-16); Aspartate Amino Transferase 27 U/L (14-36); Bilirubin,Total 0.6 mg/dL (0.2-1.3); Blood Urea Nitrogen 47 mg/dL (7-17); Calcium 7.4 mg/dL (8.4-10.2); Carbon Dioxide 19 mmol/L (22-30); Chloride 108 mmol/L (98-107); Estimated CRCL calculation 8 ml/min; Estimated Glomerular Filt Rate 6; Glucose 103 mg/dL (65-110); Magnesium 1.3 mg/dL (1.6-2.3); Potassium 3.7 mmol/L (3.4-5.0); Sodium 135 mmol/L (137-145)
[2021-09-19 05:31] LABS: Basophils Percent Auto 0.3 % (0.2-1.2); Eosinophils Absolute Auto 0.1 K/mm3 (0-0.3); Eosinophils Percent Auto 1.9 % (0-4.4); Hematocrit 23.9 % (37.0-47.0); Hemoglobin 7.9 g/dL (12.0-15.0); Immature Granulocyte Absolute 0.07 K/mm3 (0.00-0.031); Lymphocytes Absolute Auto 0.53 K/mm3 (0.9-3.2); Lymphocytes Percent Auto 7.8 % (18.3-44.2); Mean Corpuscular HGB Conc 33.1 g/dl (32-36); Mean Corpuscular Hemoglobin 29.7 pg (26-34); Mean Corpuscular Volume 89.8 fl (80-100); Mean Platelet Volume 9.3 fl (7.4-10.4); Monocytes Absolute Auto 0.8 K/mm3 (0.1-0.6); Monocytes Percent Auto 11.4 % (2.6-8.5); Neutrophils Absolute Auto 5.3 K/mm3 (1.3-6.7); Neutrophils Percent Auto 77.6 % (45.5-73.1); Platelet Count Result 109 k/mm3 (150-375); Red Blood Count 2.66 M/mm3 (4.2-5.4); Red Cell Distribution Width 14.6 % (11.5-14.5); White Blood Count 6.8 K/mm3 (4.5-10.0)
[2021-09-19 07:54] LABS: Glucose Point of Care 132 mg/dl (65-105)
[2021-09-19] MEDS: predniSONE 5 MG TABLET PO (08:54)
[2021-09-19] MEDS: PANTOPRAZOLE 40 MG TABLET PO (08:54)
[2021-09-19] MEDS: TOPIRAMATE 25 MG TABLET PO (08:54)
--- NOTE | 2021-09-19 09:36 | PM.IMPN ---
Progress Note: A&P Assessment and Plan (1) Sepsis: Code(s): A41.9 - Sepsis, unspecified organism Status: Acute Assessment and Plan: -SOFA score on arrival was 5 with thrombocytopenia and acute kidney injury in the setting of urinary tract infection. -Blood pressures have been stable with MAP greater than 70. -Lactic acid level is within normal limits. -Blood and urine cultures pending. -receiving NS per sepsis protocol. She is improving and has hx of CHF so fluids decreased to 75/hr for now. (2) Left ureteral calculus: Code(s): N20.1 - Calculus of ureter Status: Acute Assessment and Plan: -CT shows approximately 9 stones in the proximal left ureter with mild hydronephrosis and proximal hydroureter. -s/p cystoscopy, left retrograde pyelography and left ureteral stent placement 09/18/21 (3) Vehtq-cg-fvjaoye kidney injury: Code(s): N17.9 - Acute kidney failure, unspecified; N18.9 - Chronic kidney disease, unspecified Status: Acute Assessment and Plan: -creat on arrival 8.2, baseline appears to be around 1.8-2 -Likely related to a combination of factors including of obstructive uropathy, hypovolemia from poor intake and ongoing vomiting, an ongoing NSAID and FRANCO-inhibitor use. -Avoiding nephrotoxic agents -She was aggressively hydrated in the emergency department and had been receiving 125/hr NS for sepsis protocol. Since the procedure yesterday she is feeling better and tolerating PO so I have decreased IVF to 75/hr for now. -Nephrology consult placed, appreciate any additional recommendations. (of note, patient is requesting to establish with our nephrology group as she is not satisfied with her current playground equipment erector) (4) Urinary tract infection: Code(s): N39.0 - Urinary tract infection, site not specified Status: Acute Assessment and Plan: -Continue ceftriaxone -pending urine culture (5) Diastolic dysfunction: Code(s): I51.89 - Other ill-defined heart diseases Status: Acute Assessment and Plan: -She has been aggressively hydrated and we will need to monitor her volume status closely to avoid over-hydration. (6) Non-insulin dependent type 2 diabetes mellitus: Code(s): E11.9 - Type 2 diabetes mellitus without complications Status: Acute Assessment and Plan: -Glimepiride on hold given renal function. -Initiate sliding scale insulin, Accu-Cheks, and hypoglycemic protocol. -A1c 5.6 (7) Obstructive sleep apnea on CPAP: Code(s): G47.33 - Obstructive sleep apnea (adult) (pediatric); Z99.89 - Dependence on other enabling machines and devices Status: Acute Assessment and Plan: -CPAP will be available for the patient to use while hospitalized. (8) Chronic anemia: Code(s): D64.9 - Anemia, unspecified Status: Acute Assessment and Plan: -Hemoglobin and hematocrit are a bit lower than what she typically runs. -Continue to monitor for now. Subjective Date/time seen: 09/19/21 09:36 Interval history: 71-year-old female with history of kidney stones, hypertension, type 2 diabetes mellitus, chronic kidney disease, anemia, and sleep apnea, admitted to the hospital for nephrolithiasis, LOLA, and sepsis from UTI. She is s/p cystoscopy, left retrograde pyelography and left ureteral stent placement yesterday 09/18/21. Today she is feeling better. Having some mild nausea still but no emesis. Mild left flank pain and left sided abdominal pain. Reports overall deconditioning and weakness as well as sob with exertion for quite some time now. No chest pain or LE edema. Review of Systems Review of Systems: All systems reviewed & are unremarkable except as noted in HPI and below Exam Narrative: General: Mildly ill-appearing female sitting up in a chair. Weight: 101 kg. BMI: 40.7. HEENT: PERRL. Sclerae anicteric
[2021-09-19 10:04] VITALS: O2SAT 95
--- NOTE | 2021-09-19 11:00 | P.CONNP_ITS ---
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 * infection/sepsis (culture pending) * creatinine improving with interventions to date (stent, IVF hydration, holding nephrotic agents) * follow trend of repeat labs and UOP (2) Chronic kidney disease, stage IV (severe): Code(s): N18.4 - Chronic kidney disease, stage 4 (severe) Status: Chronic Assessment and Plan: * baseline creatinine runs around 1.8 - 2.3mg/dl in the last 6 months * due to a combo of HTN, DM, MADDY, vascular disease, and nephrolithiasis (3) Left ureteral calculus: Code(s): N20.1 - Calculus of ureter Status: Acute Assessment and Plan: * 9 stones in proximal left ureter measuring up to 4 mm with mild hydronephrosis and proximal hydroureter as per admission CT of A/P * s/p cystoscopy, left retrograde pyelography and left ureteral stent placement on 09/18/21 * Urology following (4) Urinary tract infection: Code(s): N39.0 - Urinary tract infection, site not specified Status: Acute Assessment and Plan: * admission urinalysis suggestive * follow-up on urine culture * on antibiotics (5) Hypertension: Code(s): I10 - Essential (primary) hypertension Status: Chronic Assessment and Plan: * relative hypotension on admission * hemodynamics appear to be doing better * follow trend (6) Anemia: Code(s): D64.9 - Anemia, unspecified Status: Acute Assessment and Plan: * likely due to LOLA, CKD, and acute illness * follow trend of H/H * consider empiric Epogen (7) Diabetes: Onset Date: ~2007 Qualifiers: Diabetes mellitus type: type 2 Diabetes mellitus intermediate accountant insulin use: without intermediate accountant use Diabetes mellitus complication status: with kidney complications Diabetes mellitus complication detail: with nephropathy Qualified Code(s): E11.21 - Type 2 diabetes mellitus with diabetic nephropathy Code(s): E11.9 - Type 2 diabetes mellitus without complications Status: Chronic Assessment and Plan: * follow accuchecks * glycemic control Will continue to follow. History of Present Illness Reason for Consult Consult date: 09/19/21 Reason for consult: acute renal failure (on chronic kidney disease) Chief Complaint Chief complaint: Acute kidney disease/dehydration/left obstructive History of Present Illness Narrative: The patient is a very pleasant 71-year-old female with extensive past medical history as outlined below who presented to [facility] Emergency room with complaints of nausea, vomiting, and left flank pain. The patient reports that since last Tuesday, she has had intermittent left flank pain similar to what she has experienced with previous kidney stones. On the hope that if these were kidney stones, they would pass on their own, she had been taking [id number] Aleve once a day to help control the pain. This seemed to help however then she developed persistent nausea and vomiting and she was unable to tolerate any type of oral food/ liquid/medication intake. She then developed a fever on the day prior to admission and this symptom in conjunction with her previous ones was concerning enough that she felt she better be evaluated in the emergency
--- NOTE | 2021-09-19 11:00 | PM.CNNEP ---
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 TESTING infection/sepsis (culture pending) creatinine improving with interventions to date (stent, IVF hydration, holding nephrotic agents) follow trend of repeat labs and UOP (2) Chronic kidney disease, stage IV (severe): Code(s): N18.4 - Chronic kidney disease, stage 4 (severe) Status: Chronic Assessment and Plan: baseline creatinine runs around 1.8 - 2.3mg/dl in the last 6 months due to a combo of HTN, DM, MADDY, vascular disease, and nephrolithiasis (3) Left ureteral calculus: Code(s): N20.1 - Calculus of ureter Status: Acute Assessment and Plan: 9 stones in proximal left ureter measuring up to 4 mm with mild hydronephrosis and proximal hydroureter as per admission CT of A/P s/p cystoscopy, left retrograde pyelography and left ureteral stent placement on 09/18/21 Urology following (4) Urinary tract infection: Code(s): N39.0 - Urinary tract infection, site not specified Status: Acute Assessment and Plan: admission urinalysis suggestive follow-up on urine culture on antibiotics (5) Hypertension: Code(s): I10 - Essential (primary) hypertension Status: Chronic Assessment and Plan: relative hypotension on admission hemodynamics appear to be doing better follow trend (6) Anemia: Code(s): D64.9 - Anemia, unspecified Status: Acute Assessment and Plan: likely due to LOLA, CKD, and acute illness follow trend of H/H consider empiric Epogen (7) Diabetes: Onset Date: ~2007 Qualifiers: Diabetes mellitus type: type 2 Diabetes mellitus fdc insulin use: without fdc use Diabetes mellitus complication status: with kidney complications Diabetes mellitus complication detail: with nephropathy Qualified Code(s): E11.21 - Type 2 diabetes mellitus with diabetic nephropathy Code(s): E11.9 - Type 2 diabetes mellitus without complications Status: Chronic Assessment and Plan: follow accuchecks glycemic control Will continue to follow. History of Present Illness Reason for Consult Consult date: 03/05/22 Reason for consult: acute renal failure (on chronic kidney disease) Chief Complaint Chief complaint: Acute kidney disease/dehydration/left obstructive History of Present Illness Narrative: The patient is a very pleasant 71-year-old female with extensive past medical history as outlined below who presented to [facility] Emergency room with complaints of nausea, vomiting, and left flank pain. The patient reports that since last Tuesday, she has had intermittent left flank pain similar to what she has experienced with previous kidney stones. On the hope that if these were kidney stones, they would pass on their own, she had been taking [id number]-[id number] Aleve once a day to help control the pain. This seemed to help however then she developed persistent nausea and vomiting and she was unable to tolerate any type of oral food/ liquid/medication intake. She then developed a fever on the day prior to admission and this symptom in conjunction with her previous ones was concerning enough that she felt she better be evaluated in the emergency room. A workup and evaluation emergency room demonstrated the patient's blood pressure to be a little bit on the soft side particularly given her history of hypertension but she was otherwise hemodynamically stable. Routine blood test demonstrated a marked decline in her baseline kidney function with a BUN of 47 and a creatinine of 8.2 mg/dL. Given her symptoms and her history of nephrolithiasis, a CT scan of the abdome
[2021-09-19 11:28] LABS: Anion Gap 12 mmol/L (8-16); Blood Urea Nitrogen 47 mg/dL (7-17); Calcium 7.8 mg/dL (8.4-10.2); Carbon Dioxide 18 mmol/L (22-30); Chloride 106 mmol/L (98-107); Estimated CRCL calculation 8 ml/min; Estimated Glomerular Filt Rate 6; Glucose 201 mg/dL (65-110); Potassium 3.8 mmol/L (3.4-5.0); Sodium 136 mmol/L (137-145)
[2021-09-19 11:38] LABS: Glucose Point of Care 200 mg/dl (65-105)
--- NOTE | 2021-09-19 12:04 | WPDUROPN2 ---
Progress Note: A&P Assessment and Plan (1) Urinary tract infection: Code(s): N39.0 - Urinary tract infection, site not specified Status: Acute Assessment and Plan: await cultures continue antibiotics (2) Tuxio-ur-rmmtakv kidney injury: Code(s): N17.9 - Acute kidney failure, unspecified; N18.9 - Chronic kidney disease, unspecified Status: Acute Assessment and Plan: trend serial Cr -currently improving (3) Left ureteral calculus: Code(s): N20.1 - Calculus of ureter Status: Acute Assessment and Plan: s/p stent placement monitor renal function, -may consider urinary alkalinization when renal function improves to try dissolution therapy Subjective Subjective Date/Time Seen: 09/19/21 12:04 NAEO. Doing well, tolerating abdullahi. flank pain improving Review of Systems Constitutional: Constitutional: Reports no additional constitutional complaints Eyes: Eyes: Reports no additional eye complaints ENT: Reports Normal hearing present Cardiovascular: Cardiovascular: Denies dyspnea Respiratory: Respiratory: Denies dyspnea on exertion Gastrointestinal: Gastrointestinal: Reports as per HPI Genitourinary: Genitourinary: Reports no additional female genitourinary complaints and Reports as per HPI Integumentary/Breasts: Skin/Breast: Reports system reviewed and no additional complaints, except as docu and Reports as per HPI Neurologic: Reports system reviewed and no additional complaints, except as documented Psychiatric: Psychiatric: Reports no additional psychiatric complaints Endocrine: Endocrine: Reports no additional endocrine complaints Hematologic/Lymphatic: Hematologic/Lymphatic: Reports no additional hematologic/lymphatic complaints Exam Const: General: cooperative, healthy appearing, comfortable, no acute distress, well developed, alert and awake HENMT: Head: normal to inspection, normocephalic and atraumatic General nose exam: Normal external nose present Eyes: Sclera: sclerae normal Neck: Neck: normal visual inspection and full ROM Resp: Effort & Inspection: normal respiratory effort, able to speak in complete sentences, no audible wheezes and respiratory effort not decreased GI: Inspection: normal to inspection and obesity : General: Yes no CVA tenderness Urinary Catheter: Urinary Catheter: patent and draining and urine clear Skin: General skin exam: normal color and no rashes or lesions noted Neuro: General: oriented to person, oriented to place, oriented to time and patient oriented x3 Extrem: General: normal to inspection Objective Data Vital Signs Vital Signs: Vital Signs - 24 hr 09/18/21 12:52 09/18/21 13:20 09/18/21 13:21 Temperature 36.2 C L Pulse Rate 109 H Respiratory Rate 20 Blood Pressure 96/53 L 128/66 Pulse Oximetry 98 97 97 09/18/21 13:31 09/18/21 13:32 09/18/21 13:46 Temperature Pulse Rate Respiratory Rate Blood Pressure 144/69 H 166/66 H Pulse Oximetry 95 95 96 09/18/21 13:47 09/18/21 14:00 09/18/21 14:01 Temperature Pulse Rate Respiratory Rate Blood Pressure 140/72 Pulse Oximetry 96 96 96 09/18/21 15:42 09/18/21 16:04 09/18/21 16:40 Temperature 36.1 C L Pulse Rate 102 H 97 95 Respiratory Rate 16 18 17 Blood Pressure 140/72 93/69 L 105/58 L Pulse Oximetry 96 99 100 09/18/21 16:45 09/18/21 17:00 09/18/21 17:15 Temperature Pulse Rate 91 91 89 Respiratory Rate 16 17 17 Blood Pressure 117/62 117/60 116/54 L Pulse Oximetry 100 100 96 09/18/21 17:30 09/18/21 17:55 09/18/21 18:10 Temperature 36.7 C 36.7 C Pulse Rate 88 89 88 Respiratory Rate 19 16 16 Blood Pressure 116/60 109/53 L 94/47 L Pulse Oximetry 96 98 98 09/18/21 18:39 09/18/21 19:40 09/18/21 21:41 Temperature 36.7 C 36.6 C Pulse Rate 87 89 Respiratory Rate 16 18 Blood Pressure 114/56 L 109/70 Pulse Oximetry 96 100 97 09/18/21 23:45 09/19/21 03:58 09/19/21 10:04 Temper
[2021-09-19] MEDS: SODIUM CHLORIDE 0.9% IV 1,000 ML 75 ML IV CONT (13:24)
--- NOTE | 2021-09-19 13:54 | PCRCNOTE ---
Pt's daughter brought her home CPAP. The machine was set up, including a 2L supplemental O2 bleed in. Pt states that she does not use humidity with her machine. Signed consent form was obtained and placed in pt's chart. Maintenance was contacted to check machine.
[2021-09-19 14:00] VITALS: BP 141/57; PULSE 101; RESP 18; TEMP 36.6; O2SAT 93
[2021-09-19 16:40] LABS: Glucose Point of Care 232 mg/dl (65-105)
[2021-09-19] MEDS: INSULIN ASPART (*BKC) 100 UNITS/ML SUB-Q (16:58)
[2021-09-19 20:09] VITALS: BP 120/46; PULSE 96; RESP 16; TEMP 36.2; O2SAT 95
[2021-09-19 21:04] LABS: Glucose Point of Care 173 mg/dl (65-105)
[2021-09-19 22:20] VITALS: PULSE 95; O2SAT 95
[2021-09-20] VITALS (9 sets, daily range): BP systolic 132–160; BP diastolic 48–76; PULSE 91–104; RESP 16–18; TEMP 36.2–36.9; O2SAT 92–95
[2021-09-20] MEDS: SODIUM CHLORIDE 0.9% IV 1,000 ML 75 ML IV CONT ×2 (04:22→09:00)
[2021-09-20 05:20] LABS: Basophils Percent Auto 0.3 % (0.2-1.2); Eosinophils Absolute Auto 0.3 K/mm3 (0-0.3); Eosinophils Percent Auto 3.4 % (0-4.4); Hematocrit 24.8 % (37.0-47.0); Hemoglobin 7.9 g/dL (12.0-15.0); Immature Granulocyte Absolute 0.12 K/mm3 (0.00-0.031); Immature Granulocyte Percent A 1.6 % (0-0.5); Lymphocytes Absolute Auto 0.83 K/mm3 (0.9-3.2); Lymphocytes Percent Auto 11.3 % (18.3-44.2); Mean Corpuscular HGB Conc 31.9 g/dl (32-36); Mean Corpuscular Hemoglobin 29.5 pg (26-34); Mean Corpuscular Volume 92.5 fl (80-100); Mean Platelet Volume 9.1 fl (7.4-10.4); Monocytes Absolute Auto 0.7 K/mm3 (0.1-0.6); Monocytes Percent Auto 9.7 % (2.6-8.5); Neutrophils Absolute Auto 5.4 K/mm3 (1.3-6.7); Neutrophils Percent Auto 73.7 % (45.5-73.1); Platelet Count Result 107 k/mm3 (150-375); Red Blood Count 2.68 M/mm3 (4.2-5.4); Red Cell Distribution Width 14.3 % (11.5-14.5); White Blood Count 7.4 K/mm3 (4.5-10.0)
[2021-09-20 05:37] LABS: Alanine Aminotransferase 16 U/L (4-35); Albumin Level 2.8 g/dL (3.5-5.1); Alkaline Phosphatase 77 U/L (38-126); Anion Gap 6 mmol/L (8-16); Aspartate Amino Transferase 21 U/L (14-36); Bilirubin,Total 0.5 mg/dL (0.2-1.3); Blood Urea Nitrogen 45 mg/dL (7-17); Calcium 7.6 mg/dL (8.4-10.2); Carbon Dioxide 20 mmol/L (22-30); Chloride 111 mmol/L (98-107); Estimated CRCL calculation 10 ml/min; Estimated Glomerular Filt Rate 7; Glucose 120 mg/dL (65-110); Potassium 3.6 mmol/L (3.4-5.0); Sodium 137 mmol/L (137-145)
--- NOTE | 2021-09-20 07:58 | PM.IMPN ---
Progress Note: A&P Assessment and Plan (1) Sepsis: Code(s): A41.9 - Sepsis, unspecified organism Status: Acute Assessment and Plan: -SOFA score on arrival was 5 with thrombocytopenia and acute kidney injury in the setting of urinary tract infection. -Blood pressures have been stable with MAP greater than 70. But remains slightly tachy with HR 90s. -Lactic acid level is within normal limits. -Blood and urine cultures no growths - WNL. -receiving NS per sepsis protocol - stopped now. -She is improving and has hx of CHF so fluids decreased to 75/hr and now discontinued. (2) Left ureteral calculus: Code(s): N20.1 - Calculus of ureter Status: Acute Assessment and Plan: -CT shows approximately 9 stones in the proximal left ureter with mild hydronephrosis and proximal hydroureter. -s/p cystoscopy, left retrograde pyelography and left ureteral stent placement 09/18/21 9 stones in proximal left ureter measuring up to 4 mm with mild hydronephrosis and proximal hydroureter as per admission CT of A/P s/p cystoscopy, left retrograde pyelography and left ureteral stent placement on 09/18/21 Urology following, Geospatial Technician following. no pain today, urine remains very cloudy, imaging shows hydronephrosis improved but still there. 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 Since the procedure yesterday she is feeling better and tolerating PO , decreased IVF to 75/hr yesterday, and today discontinued IVFs. follow trend of repeat labs and UOP creat on arrival 8.2, baseline appears to be around 1.8-2 (last creatinine 1.4 on 08/06/20 and 12/03/20) baseline creatinine runs around 1.8 - 2.3mg/dl in the last 6 months Nephrology consult placed, appreciate any additional recommendations. (of note, patient is requesting to establish with our nephrology group as she is not satisfied with her current minister assistant) Avoiding nephrotoxic agents - imperative. keep MAPs>65, but avoid hypertension as well. creatinine slowly improving (4) Urinary tract infection: Code(s): N39.0 - Urinary tract infection, site not specified Status: Acute Assessment and Plan: -was on ceftriaxone at admission, now off all antibiotics. -blood and urine cultures show no growth -UTI not confirmed yet. -repeating urine analysis and urine culture today - as her urine continue to remain cloudy and clumpy (5) Diastolic dysfunction: Code(s): I51.89 - Other ill-defined heart diseases Status: Acute Assessment and Plan: -She has been aggressively hydrated and we will need to monitor her volume status closely to avoid over-hydration. -1-2+ edema to BLE -stopped IVFs -elevate BLE, ordered JAMMIE hose stockings applied. (6) Non-insulin dependent type 2 diabetes mellitus: Code(s): E11.9 - Type 2 diabetes mellitus without complications Status: Acute Assessment and Plan: -Glimepiride on hold given renal function. -Initiate sliding scale insulin, Accu-Cheks, and hypoglycemic protocol. -A1c 5.6 -glucose controlled at this time (7) Obstructive sleep apnea on CPAP: Code(s): G47.33 - Obstructive sleep apnea (adult) (pediatric); Z99.89 - Dependence on other enabling machines and devices Status: Acute Assessment and Plan: -CPAP will be available for the
[2021-09-20 08:01] LABS: Glucose Point of Care 142 mg/dl (65-105)
[2021-09-20] MEDS: TOPIRAMATE 25 MG TABLET PO (08:59)
[2021-09-20] MEDS: predniSONE 5 MG TABLET PO (08:59)
[2021-09-20] MEDS: ONDANSETRON INJ 4 MG/2 ML VIAL IV PUSH (08:59)
[2021-09-20] MEDS: PANTOPRAZOLE 40 MG TABLET PO (08:59)
--- NOTE | 2021-09-20 11:08 | P.PNNP_ITS ---
Progress Note: A&P Assessment and Plan (1) LOLA (acute kidney injury): Code(s): N17.9 - Acute kidney failure, unspecified Status: Acute Assessment and Plan: * multifactorial etiology: * obstructive uropathy (see #3) * prerenal factors (poor oral intake + vomiting) * NSAID use * continued FRANCO-I use CAN CONVEYOR FEEDER * infection/sepsis (culture with no growth though) * creatinine improving with interventions to date (stent, IVF hydration, holding nephrotic agents) * follow trend of repeat labs and UOP (2) Chronic kidney disease, stage IV (severe): Code(s): N18.4 - Chronic kidney disease, stage 4 (severe) Status: Chronic Assessment and Plan: * baseline creatinine runs around 1.8 - 2.3mg/dl in the last 6 months * due to a combo of HTN, DM, MADDY, vascular disease, and nephrolithiasis (3) Left ureteral calculus: Code(s): N20.1 - Calculus of ureter Status: Acute Assessment and Plan: * 9 stones in proximal left ureter measuring up to 4 mm with mild hydronephrosis and proximal hydroureter as per admission CT of A/P * s/p cystoscopy, left retrograde pyelography and left ureteral stent placement on 09/18/21 * Urology following (4) Urinary tract infection: Code(s): N39.0 - Urinary tract infection, site not specified Status: Acute Assessment and Plan: * admission urinalysis suggestive * urine culture without growth * on antibiotics (5) Hypertension: Code(s): I10 - Essential (primary) hypertension Status: Chronic Assessment and Plan: * relative hypotension on admission * hemodynamics appear to be doing better * follow trend (6) Anemia: Code(s): D64.9 - Anemia, unspecified Status: Acute Assessment and Plan: * likely due to LOLA, CKD, and acute illness * follow trend of H/H * consider empiric Epogen (7) Diabetes: Onset Date: ~2007 Qualifiers: Diabetes mellitus complication detail: with nephropathy Diabetes mellitus complication status: with kidney complications Diabetes mellitus computer terminal operator insulin use: without computer terminal operator use Diabetes mellitus type: type 2 Qualified Code(s): E11.21 - Type 2 diabetes mellitus with diabetic nephropathy Code(s): E11.9 - Type 2 diabetes mellitus without complications Status: Chronic Assessment and Plan: * follow accuchecks * glycemic control Will continue to follow. Subjective Date/time seen: 09/20/21 11:08 Slow and steady improvement note in the last 24 - 48 hours; renal function continues to improve following stent placement by Urology and ongoing supportive therapy; no acute issues/events overnight or earlier this AM. Exam Narrative: General: WD/WN female in NAD Heart: normal S1 and S2; no rub Lungs: clear to auscultation Abdomen: soft, nontender, nondistended, positive bowel sounds Extremities: no cyanosis or clubbing; no edema Skin: warm and dry Objective Data Vital Signs Vital Signs: Vital Signs Temp Pulse Resp BP Pulse Ox 09/20/21 09:37 94 95 09/20/21 09:21 92 09/20/21 04:22 36.2 C L 96 18 132/48 L 92 09/20/21 03:18 91 94 09/19/21 22:20 95 95 09/19/21 20:09 36.2 C L 96 16 120/46 L 95 09/19/21 14:00 36.6 C 101 H 18 141/57 H 93 Intake/Output Intake/Output: Intake & Ou
--- NOTE | 2021-09-20 11:08 | PM.PNNEP ---
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 infection/sepsis (culture with no growth though) creatinine improving with interventions to date (stent, IVF hydration, holding nephrotic agents) follow trend of repeat labs and UOP (2) Chronic kidney disease, stage IV (severe): Code(s): N18.4 - Chronic kidney disease, stage 4 (severe) Status: Chronic Assessment and Plan: baseline creatinine runs around 1.8 - 2.3mg/dl in the last 6 months due to a combo of HTN, DM, MADDY, vascular disease, and nephrolithiasis (3) Left ureteral calculus: Code(s): N20.1 - Calculus of ureter Status: Acute Assessment and Plan: 9 stones in proximal left ureter measuring up to 4 mm with mild hydronephrosis and proximal hydroureter as per admission CT of A/P s/p cystoscopy, left retrograde pyelography and left ureteral stent placement on 09/18/21 Urology following (4) Urinary tract infection: Code(s): N39.0 - Urinary tract infection, site not specified Status: Acute Assessment and Plan: admission urinalysis suggestive urine culture without growth on antibiotics (5) Hypertension: Code(s): I10 - Essential (primary) hypertension Status: Chronic Assessment and Plan: relative hypotension on admission hemodynamics appear to be doing better follow trend (6) Anemia: Code(s): D64.9 - Anemia, unspecified Status: Acute Assessment and Plan: likely due to LOLA, CKD, and acute illness follow trend of H/H consider empiric Epogen (7) Diabetes: Onset Date: ~2007 Qualifiers: Diabetes mellitus complication detail: with nephropathy Diabetes mellitus complication status: with kidney complications Diabetes mellitus correction insulin use: without professional golf tournament player use Diabetes mellitus type: type 2 Qualified Code(s): E11.21 - Type 2 diabetes mellitus with diabetic nephropathy Code(s): E11.9 - Type 2 diabetes mellitus without complications Status: Chronic Assessment and Plan: follow accuchecks glycemic control Will continue to follow. Subjective Date/time seen: 09/20/21 11:08 Slow and steady improvement note in the last 24 - 48 hours; renal function continues to improve following stent placement by Urology and ongoing supportive therapy; no acute issues/events overnight or earlier this AM. Exam Narrative: General: WD/WN female in NAD Heart: normal S1 and S2; no rub Lungs: clear to auscultation Abdomen: soft, nontender, nondistended, positive bowel sounds Extremities: no cyanosis or clubbing; no edema Skin: warm and dry Objective Data Vital Signs Vital Signs: Vital Signs Temp Pulse Resp BP Pulse Ox 09/20/21 09:37 94 95 09/20/21 09:21 92 09/20/21 04:22 36.2 C L 96 18 132/48 L 92 09/20/21 03:18 91 94 09/19/21 22:20 95 95 09/19/21 20:09 36.2 C L 96 16 120/46 L 95 09/19/21 14:00 36.6 C 101 H 18 141/57 H 93 Intake/Output Intake/Output: Intake & Output 09/17/21 09/18/21 09/19/21 09/20/21 23:59 23:59 23:59 23:59 Intake Total 1000 2160 2200 Output Total 100 1925 1000 Balance 146 137 3351 Meds/Results Medications: Active Medications Generic Name Dose Route Start Last Admin Trade Name Freq PRN Reason Stop Dose Admin Acetaminophen 1,000 mg 09/20/21 10:18 Acetaminophen 500 Mg Tablet PO Q6H PRN Pain or Fever Albuterol 1 puff 09/18/21 23:46 Albuterol Sulfate (*Sp) Aerosol 1 Puff INHALATION QID PRN Respiratory Distress Amlodipine Besylate 5 mg 09/21/21 09:00 Amlodipine Besylate 5 Mg Tablet PO DAILY AQUILINO Dextrose 12.5 g
[2021-09-20 11:55] LABS: Glucose Point of Care 169 mg/dl (65-105)
[2021-09-20 12:55] LABS: Add Urine Microscopic? YES; Appearance Urine Cloudy (Clear); Bacteria Urine Trace /hpf; Bilirubin Urine Negative (Negative); Blood Urine 3+ (Negative); Color Urine Straw (Yellow); Glucose Urine UA Negative (Negative); Ketones Urine Negative (Negative); Leukocyte Esterase Ur 2+ LEU/UL (NEGATIVE); Mucus Urine Rare /lpf; Nitrate Urine Negative (Negative); Protein Urine Negative (Negative); RBC Urine >75 /hpf (0-2); Specific Grav Ur 1.008 (1.001-1.035); Urobilinogen Urine Negative mg/dL (<2.0); WBC Urine 21-30 /hpf (0-3)
--- NOTE | 2021-09-20 13:06 | WPDUROPN2 ---
Progress Note: A&P Assessment and Plan (1) Urinary tract infection: Code(s): N39.0 - Urinary tract infection, site not specified Status: Acute Assessment and Plan: culture NGTD. (2) Iyebh-vj-pfivtyj kidney injury: Code(s): N17.9 - Acute kidney failure, unspecified; N18.9 - Chronic kidney disease, unspecified Status: Acute Assessment and Plan: trend serial Cr -currently improving 5.9 (3) Left ureteral calculus: Code(s): N20.1 - Calculus of ureter Status: Acute Assessment and Plan: s/p stent placement monitor renal function, -may consider urinary alkalinization when renal function improves to attempt dissolution therapy Subjective Subjective Date/Time Seen: 09/20/21 13:06 NAEO. No pain, urine clear. symptoms improving Review of Systems Constitutional: Constitutional: Reports no additional constitutional complaints Eyes: Eyes: Reports no additional eye complaints ENT: Reports Normal hearing present Cardiovascular: Cardiovascular: Denies chest pain, Denies lightheadedness, Denies palpitations, Denies dyspnea and Denies dyspnea on exertion Respiratory: Respiratory: Denies dyspnea and Denies dyspnea on exertion Gastrointestinal: Gastrointestinal: Reports as per HPI, Denies diarrhea, Denies nausea and Denies vomiting Genitourinary: Genitourinary: Reports no additional female genitourinary complaints, Reports as per HPI, Denies hematuria and Denies dysuria Integumentary/Breasts: Skin/Breast: Reports system reviewed and no additional complaints, except as docu and Reports as per HPI Neurologic: Reports system reviewed and no additional complaints, except as documented and Reports Normal hearing present Psychiatric: Psychiatric: Reports no additional psychiatric complaints Endocrine: Endocrine: Reports no additional endocrine complaints and Denies palpitations Hematologic/Lymphatic: Hematologic/Lymphatic: Reports no additional hematologic/lymphatic complaints Exam Const: General: cooperative, healthy appearing, comfortable, no acute distress, well developed, alert and awake Orientation/consciousness: oriented to person, oriented to place, oriented to time and patient oriented x3 HENMT: Head: normal to inspection, normocephalic and atraumatic General nose exam: Normal external nose present Eyes: Sclera: sclerae normal Neck: Neck: normal visual inspection and full ROM Resp: Effort & Inspection: normal respiratory effort, able to speak in complete sentences, no audible wheezes and respiratory effort not decreased GI: Inspection: normal to inspection, non-distended and obesity Auscultation: normal bowel sounds : General: Yes no CVA tenderness Urinary Catheter: Urinary Catheter: patent and draining and urine clear Back/Spine/Pelvis: Back: no CVA tenderness Skin: General skin exam: normal color and no rashes or lesions noted Neuro: General: oriented to person, oriented to place, oriented to time and patient oriented x3 Cranial nerves: Yes Normal hearing present Extrem: General: normal to inspection Objective Data Vital Signs Vital Signs: Vital Signs - 24 hr 09/19/21 14:00 09/19/21 20:09 09/19/21 22:20 Temperature 36.6 C 36.2 C L Pulse Rate 101 H 96 95 Respiratory Rate 18 16 Blood Pressure 141/57 H 120/46 L Pulse Oximetry 93 95 95 09/20/21 03:18 09/20/21 04:22 09/20/21 09:21 Temperature 36.2 C L Pulse Rate 91 96 Respiratory Rate 18 Blood Pressure 132/48 L Pulse Oximetry 94 92 92 09/20/21 09:37 Temperature Pulse Rate 94 Respiratory Rate Blood Pressure Pulse Oximetry 95 Intake/Output Intake/Output: Intake & Output 09/17/21 09/18/21 09/19/21 09/20/21 23:59 23:59 23:59 23:59 Intake Total 1000 2160 2440 Output Total 100 1925 1000 Balance 222 318 9421 Meds/Results Medications: Active Medications Generic Name Dose Route Start Last Admin Trade Name Freq PRN Reason Stop Dose Admin Acetaminophen
[2021-09-20 16:47] LABS: Glucose Point of Care 203 mg/dl (65-105)
[2021-09-20] MEDS: INSULIN ASPART (*BKC) 100 UNITS/ML SUB-Q (17:06)
[2021-09-20 21:19] LABS: Glucose Point of Care 113 mg/dl (65-105)
[2021-09-21] VITALS (11 sets, daily range): BP systolic 135–149; BP diastolic 54–62; PULSE 69–94; RESP 16–18; TEMP 36.4–36.6; O2SAT 94–99
--- NOTE | 2021-09-21 | ECHO_ITS ---
Patient Info Name: Edith Mayo Age: 71 years : 1950 Gender: Female Ht: 62 in Wt: 232 lbs BSA: 2.21 m2 HR: 90 bpm BP: 145 / 62 mmHg Technical Quality: Fair Exam Date: 09/21/2021 11:54 AM Exam Location: [facility] Patient Status: Inpatient Admit Date: 09/18/2021 Staff Ordering Physician: Maci Koch NP Automatic Shirring Machine Operator: Charlene Arriola RDCS Attending Provider: Maci Koch NP Referring Physician: August DUQUE; Exam Type: CA echo doppler color flow Study Info Indications D63.1 - Anemia in chronic kidney disease R06.02 - Shortness of breath N17.8 - Other acute kidney failure Complete two-dimensional, color flow and Doppler transthoracic echocardiogram is performed. Summary 1. Complete two-dimensional, color flow and Doppler transthoracic echocardiogram is performed. 2. Left ventricular chamber dimension is normal. 3. Left ventricular systolic function is normal, estimated at 60-65%. 4. There is mildly increased left ventricular wall thickness. 5. The left ventricular diastolic function is grade II diastolic dysfunction. 6. E/e' 13 is mildly elevated. 7. Global longitudinal strain is abnormal at -15.2%. 8. Left atrial chamber dimension is mildly enlarged. 9. There is trace mitral valve regurgitation. 10. There is small to moderate circumferential pericardial effusion. No cardiac tamponade. Left Ventricle E/e' 13 is mildly elevated. Global longitudinal strain is abnormal at -15.2%. Left ventricular chamber dimension is normal. Left ventricular systolic function is normal, estimated at 60-65%. There is mildly increased left ventricular wall thickness. The left ventricular diastolic function is grade II diastolic dysfunction. Right Ventricle Right ventricular chamber dimension is normal. Right ventricular systolic function is normal. Left Atria Left atrial chamber dimension is mildly enlarged. Right Atria Right atrial chamber dimension is normal. Aortic Valve The aortic valve is trileaflet. There is no aortic valve stenosis. There is no aortic valve regurgitation. Pulmonic Valve There is no pulmonic regurgitation. Mitral Valve There is no mitral valve stenosis. There is trace mitral valve regurgitation. Tricuspid Valve There is no tricuspid valve regurgitation. Pericardium/Pleural There is small to moderate circumferential pericardial effusion. No cardiac tamponade. Inferior Vena Cava Normal inferior vena cava with >50% collapse upon inspiration consistent with normal right atrial pressure, 5 mmHg. Aorta The aortic root size at the sinus of Valsalva is normal. Left Ventricular Outflow Tract Name Value Normal LVOT 2D LVOT Diameter 2.0 cm LVOT Doppler LVOT Peak Gradient 6 mmHg LVOT Mean Gradient 4 mmHg LVOT VTI 27 cm LVOT VTI/AV VTI Ratio 0.9 LVOT Stroke Volume 85 ml LVOT CO 7.5 l/min LVOT CI 3.4 l/min/m2 Pulmonic Valve
[2021-09-21 05:39] LABS: Basophils Absolute Auto 0.1 K/mm3 (0.0-0.1); Basophils Percent Auto 0.6 % (0.2-1.2); Eosinophils Absolute Auto 0.4 K/mm3 (0-0.3); Eosinophils Percent Auto 4.2 % (0-4.4); Hematocrit 25.6 % (37.0-47.0); Hemoglobin 8.3 g/dL (12.0-15.0); Immature Granulocyte Absolute 0.34 K/mm3 (0.00-0.031); Immature Granulocyte Percent A 3.9 % (0-0.5); Lymphocytes Absolute Auto 1.72 K/mm3 (0.9-3.2); Lymphocytes Percent Auto 19.5 % (18.3-44.2); Mean Corpuscular HGB Conc 32.4 g/dl (32-36); Mean Corpuscular Hemoglobin 29.3 pg (26-34); Mean Corpuscular Volume 90.5 fl (80-100); Mean Platelet Volume 8.9 fl (7.4-10.4); Monocytes Absolute Auto 0.7 K/mm3 (0.1-0.6); Monocytes Percent Auto 7.9 % (2.6-8.5); Neutrophils Absolute Auto 5.6 K/mm3 (1.3-6.7); Neutrophils Percent Auto 63.9 % (45.5-73.1); Platelet Count Result 149 k/mm3 (150-375); Red Blood Count 2.83 M/mm3 (4.2-5.4); Red Cell Distribution Width 14.2 % (11.5-14.5); White Blood Count 8.8 K/mm3 (4.5-10.0)
[2021-09-21 05:43] LABS: Alanine Aminotransferase 15 U/L (4-35); Albumin Level 2.9 g/dL (3.5-5.1); Alkaline Phosphatase 83 U/L (38-126); Anion Gap 9 mmol/L (8-16); Aspartate Amino Transferase 23 U/L (14-36); Bilirubin,Total 0.3 mg/dL (0.2-1.3); Blood Urea Nitrogen 41 mg/dL (7-17); Calcium 7.7 mg/dL (8.4-10.2); Carbon Dioxide 21 mmol/L (22-30); Chloride 112 mmol/L (98-107); Cholesterol 129 mg/dL (0-200); Estimated CRCL calculation 12 ml/min; Estimated Glomerular Filt Rate 9; Glucose 119 mg/dL (65-110); HDL Direct 22 mg/dL; Potassium 3.6 mmol/L (3.4-5.0); Sodium 142 mmol/L (137-145); Triglycerides 206 mg/dL (<150)
[2021-09-21 05:54] LABS: LDL Cholesterol Direct 60 mg/dL
[2021-09-21 08:01] LABS: Hypochromasia 1+ (NORMAL); Platelet Estimate Adequate (Adequate)
[2021-09-21] MEDS: amLODIPine BESYLATE 5 MG TABLET PO (09:26)
[2021-09-21] MEDS: TOPIRAMATE 25 MG TABLET PO (09:26)
[2021-09-21] MEDS: predniSONE 5 MG TABLET PO (09:26)
[2021-09-21] MEDS: SACCHAROMYCES BOULARDII 250 MG CAPSULE PO (09:26)
[2021-09-21] MEDS: VITAMIN B COMPLEX/VIT C CAPSULE 1 EACH PO (09:27)
[2021-09-21] MEDS: ERGOCALCIFEROL 50,000 UNIT CAPSULE 50000 UNITS PO (09:27)
[2021-09-21] MEDS: PANTOPRAZOLE 40 MG TABLET PO (09:27)
[2021-09-21 12:26] LABS: Glucose Point of Care 199 mg/dl (65-105)
--- NOTE | 2021-09-21 12:39 | P.PNNP_ITS ---
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 * infection/sepsis (culture with no growth though) * creatinine improving with interventions to date (stent, IVF hydration, holding nephrotic agents) * follow trend of repeat labs and UOP (2) Chronic kidney disease, stage IV (severe): Code(s): N18.4 - Chronic kidney disease, stage 4 (severe) Status: Chronic Assessment and Plan: * baseline creatinine runs around 1.8 - 2.3mg/dl in the last 6 months * due to a combo of HTN, DM, MADDY, vascular disease, and nephrolithiasis (3) Left ureteral calculus: Code(s): N20.1 - Calculus of ureter Status: Acute Assessment and Plan: * 9 stones in proximal left ureter measuring up to 4 mm with mild hydronephrosis and proximal hydroureter as per admission CT of A/P * s/p cystoscopy, left retrograde pyelography and left ureteral stent placement on 09/18/21 * Urology following (4) Urinary tract infection: Code(s): N39.0 - Urinary tract infection, site not specified Status: Acute Assessment and Plan: * admission urinalysis suggestive * urine culture without growth - repeat urine culture pending * holding antibiotics (5) Hypertension: Code(s): I10 - Essential (primary) hypertension Status: Chronic Assessment and Plan: * relative hypotension on admission * hemodynamics appear to be doing better * follow trend (6) Anemia: Code(s): D64.9 - Anemia, unspecified Status: Acute Assessment and Plan: * likely due to LOLA, CKD, and acute illness * follow trend of H/H * consider empiric Epogen -- see what H/H is tomorrow (7) Diabetes: Onset Date: ~2007 Qualifiers: Diabetes mellitus complication detail: with nephropathy Diabetes mellitus complication status: with kidney complications Diabetes mellitus chcf insulin use: without adjunct faculty for medical terminology use Diabetes mellitus type: type 2 Qualifi ed Code(s): E11.21 - Type 2 diabetes mellitus with diabetic nephropathy Code(s): E11.9 - Type 2 diabetes mellitus without complications Status: Chronic Assessment and Plan: * follow accuchecks * glycemic control Will continue to follow. Subjective Date/time seen: 09/21/21 12:39 Continues to make slow and steady improvement at this time; off IVFs and eating/drinking reasonably well; good urine output noted with improvement in renal function/creatinine; overall, she states she feels significantly better; no issues/events overnight or earlier this morning. Exam Narrative: General: WD/WN female in NAD Heart: normal S1 and S2; no rub Lungs: clear to auscultation Abdomen: soft, nontender, nondistended, positive bowel sounds Extremities: no cyanosis or clubbing; no edema Skin: warm and intact Objective Data Vital Signs Vital Signs: Vital Signs Temp Pulse Resp BP Pulse Ox 09/21/21 08:40 95 09/21/21 08:00 90 18 95 09/21/21 06:00 36.4 C L 88 18 145/62 H 95 09/21/21 04:00 69 09/21/21 00:00 83 09/20/21 22:00 36.9 C 93 16 160/76 H 95 03/0
--- NOTE | 2021-09-21 12:39 | PM.PNNEP ---
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 infection/sepsis (culture with no growth though) creatinine improving with interventions to date (stent, IVF hydration, holding nephrotic agents) follow trend of repeat labs and UOP (2) Chronic kidney disease, stage IV (severe): Code(s): N18.4 - Chronic kidney disease, stage 4 (severe) Status: Chronic Assessment and Plan: baseline creatinine runs around 1.8 - 2.3mg/dl in the last 6 months due to a combo of HTN, DM, MADDY, vascular disease, and nephrolithiasis (3) Left ureteral calculus: Code(s): N20.1 - Calculus of ureter Status: Acute Assessment and Plan: 9 stones in proximal left ureter measuring up to 4 mm with mild hydronephrosis and proximal hydroureter as per admission CT of A/P s/p cystoscopy, left retrograde pyelography and left ureteral stent placement on 09/18/21 Urology following (4) Urinary tract infection: Code(s): N39.0 - Urinary tract infection, site not specified Status: Acute Assessment and Plan: admission urinalysis suggestive urine culture without growth - repeat urine culture pending holding antibiotics (5) Hypertension: Code(s): I10 - Essential (primary) hypertension Status: Chronic Assessment and Plan: relative hypotension on admission hemodynamics appear to be doing better follow trend (6) Anemia: Code(s): D64.9 - Anemia, unspecified Status: Acute Assessment and Plan: likely due to LOLA, CKD, and acute illness follow trend of H/H consider empiric Epogen -- see what H/H is tomorrow (7) Diabetes: Onset Date: ~2007 Qualifiers: Diabetes mellitus complication detail: with nephropathy Diabetes mellitus complication status: with kidney complications 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 Subjective Date/time seen: 09/21/21 12:39 Continues to make slow and steady improvement at this time; off IVFs and eating/drinking reasonably well; good urine output noted with improvement in renal function/creatinine; overall, she states she feels significantly better; no issues/events overnight or earlier this morning. Exam Narrative: General: WD/WN female in NAD Heart: normal S1 and S2; no rub Lungs: clear to auscultation Abdomen: soft, nontender, nondistended, positive bowel sounds Extremities: no cyanosis or clubbing; no edema Skin: warm and intact Objective Data Vital Signs Vital Signs: Vital Signs Temp Pulse Resp BP Pulse Ox 09/21/21 08:40 95 09/21/21 08:00 90 18 95 09/21/21 06:00 36.4 C L 88 18 145/62 H 95 09/21/21 04:00 69 09/21/21 00:00 83 09/20/21 22:00 36.9 C 93 16 160/76 H 95 09/20/21 20:00 92 09/20/21 16:53 98 09/20/21 16:42 36.9 C 104 H 16 137/57 L 93 Intake/Output Intake/Output: Intake & Output 09/18/21 09/19/21 09/20/21 09/21/21 23:59 23:59 23:59 23:59 Intake Total 1000 2160 3160 620 Output Total 100 1925 3200 1750 Balance 900 Meds/Results Medications: Active Medications Generic Name Dose Route Start Last Admin Trade Name Freq PRN Reason Stop Dose Admin Acetaminophen 1,000 mg 09/20/21 10:18 Acetaminophen 500 Mg Tablet PO Q6H PRN Pain or Fever Albuterol 1 puff 09/18/21 23:46 Albuterol Sulfate (*S
--- NOTE | 2021-09-21 15:40 | WPDUROPN2 ---
Progress Note: A&P Assessment and Plan (1) Chronic kidney disease, stage IV (severe): Code(s): N18.4 - Chronic kidney disease, stage 4 (severe) Status: Chronic (2) LOLA (acute kidney injury): Code(s): N17.9 - Acute kidney failure, unspecified Status: Acute Assessment and Plan: Baseline is around 1.80, continue to monitor creatinine until baseline. (3) Urinary tract infection: Code(s): N39.0 - Urinary tract infection, site not specified Status: Acute Assessment and Plan: Repeat urine culture is pending from yesterday. (4) Left ureteral calculus: Code(s): N20.1 - Calculus of ureter Status: Acute Assessment and Plan: Left stent in place, will send home with potassium citrate 20meq po TID and f/u with a CT in 8 weeks to re-evaluate. NO further evaluation necessary at this time, will f/u as an outpatient. Subjective Subjective Date/Time Seen: 09/21/21 15:40 Patient is POD #3 Cystoscopy, left stent, left retrograde pyelogram She has [address], not visible on KUB, they measure up to 4mm in size. She is tolerating her stent well and has no urinary complaints today. Urine culture on 09/18/2021 was negative, a new urine culture from 09/20/2021 is pending. Creatinine is improving but is still elevated at 4.80. WBC is normal at 8.8. She sees DR. Jerez a director oncology that monitors her CKD. Review of Systems Cardiovascular: Cardiovascular: Denies chest pain Respiratory: Respiratory: Reports no additional respiratory complaints Gastrointestinal: Gastrointestinal: Denies abdominal pain, Denies nausea and Denies vomiting Genitourinary: Genitourinary: Denies dysuria, Denies pelvic pain, Denies flank pain, Denies urinary incontinence, Denies urinary hesitancy and Denies urinary urgency Exam Resp: Effort & Inspection: normal respiratory effort Cardio: Rate: regular rate GI: GI Palp: Yes Soft to palpation and No Tenderness to palpation present (GI) : General: Yes no CVA tenderness Urinary Catheter: Urinary Catheter: patent and draining and urine clear Extrem: General: edema bilateral Objective Data Vital Signs Vital Signs: Vital Signs - 24 hr 09/20/21 16:42 09/20/21 16:53 09/20/21 20:00 Temperature 98.5 F Pulse Rate 104 H 98 92 Respiratory Rate 16 Blood Pressure 137/57 L Pulse Oximetry 93 09/20/21 22:00 09/21/21 00:00 09/21/21 04:00 Temperature 98.5 F Pulse Rate 93 83 69 Respiratory Rate 16 Blood Pressure 160/76 H Pulse Oximetry 95 09/21/21 06:00 09/21/21 08:00 09/21/21 08:40 Temperature 97.5 F L Pulse Rate 88 90 Respiratory Rate 18 18 Blood Pressure 145/62 H Pulse Oximetry 95 95 95 09/21/21 14:00 Temperature 97.9 F Pulse Rate 94 Respiratory Rate 18 Blood Pressure 149/54 H Pulse Oximetry 99 Intake/Output Intake/Output: Intake & Output 09/18/21 09/19/21 09/20/21 09/21/21 23:59 23:59 23:59 23:59 Intake Total 1000 2160 3160 740 Output Total 100 1925 3200 1750 Balance 900 Meds/Results Medications: Active Medications Generic Name Dose Route Start Last Admin Trade Name Freq PRN Reason Stop Dose Admin Acetaminophen 1,000 mg 09/20/21 10:18 Acetaminophen 500 Mg Tablet PO Q6H PRN Pain or Fever Albuterol 1 puff 09/18/21 23:46 Albuterol Sulfate (*Sp) Aerosol 1 Puff INHALATION QID PRN Respiratory Distress Amlodipine Besylate 5 mg 09/21/21 09:00 09/21/21 09:26 Amlodipine Besylate 5 Mg Tablet PO 5 mg DAILY AQUILINO Administration Dextrose 12.5 gm 09/18/21 20:26 Dextrose 50% 25 Gm/50 Ml Syringe IV PUSH PRN PRN Hypoglycemia Protocol Ergocalciferol 50,000 unit 09/21/21 09:00 09/21/21 09:27 Ergocalciferol 50,000 Unit Capsule PO 50,000 unit WEEKLY AQUILINO Administration Glucagon 1 mg 09/18/21 20:26 Glucagon For Inj 1 Mg Vial IM PRN PRN Hypoglycemia Protocol Glucose 15 gm
--- NOTE | 2021-09-21 15:42 | PM.IMPN ---
Progress Note: A&P Additional Plan 71-year-old female with history of kidney stones, hypertension, type 2 diabetes mellitus, chronic kidney disease, anemia, and sleep apnea, admitted to the hospital for nephrolithiasis, LOLA, and sepsis from UTI. She is s/p cystoscopy, left retrograde pyelography and left ureteral stent placement on 09/18/21. 1)LOLA on preexisting CKD stage 4: 2/2 obstructive uropathy in setting of kidney stones Appreciate Renal and Urology help Slowly improving creatinine Avoid nephrotoxins Recheck BMP in AM 2)Sepsis: ruled out Urine culture negative upon admission Repeat urine culture pending off antbiotic 3)Diabetes Mellitus: BG check TID AC BG stable c/w low dose SS premeal insulin holding oral home agents HBA1C 5.6 4)Anemia: Likely anemia of chronic disease Will likely benefit from epogen Defer to Nephrology 5)Code:Full 6)DVT ppx:hep sq 7)Dispo:pending improvement in kidney function Time Spent With Patient Time with patient: 25 - 35 minutes Subjective Date/time seen: 09/21/21 15:42 Interval history: resting comfortably, no acute events overnight Review of Systems Review of Systems: All systems reviewed & are unremarkable except as noted in HPI and below Constitutional: Constitutional: Reports no additional constitutional complaints Eyes: Eyes: Reports no additional eye complaints ENT: Reports system reviewed and no additional complaints, except as documented Cardiovascular: Cardiovascular: Reports pedal edema Respiratory: Respiratory: Reports dyspnea Gastrointestinal: Gastrointestinal: Reports no additional gastrointestinal complaints Neurologic: Reports system reviewed and no additional complaints, except as documented Exam Const: General: no acute distress HENMT: Mouth: Yes moist mucous membranes Eyes: General: appearance normal, both eyes and all related structures Pupils: Equal, round and reactive pupils present Neck: Neck: supple Resp: Other: decreased breath sounds B/L, few crackles at bases Cardio: Rate: regular rate Rhythm: regular rhythm GI: GI Palp: Yes Soft to palpation Auscultation: normal bowel sounds Urinary Catheter: Urinary Catheter: patent and draining Skin: General skin exam: normal color Neuro: Speech: normal speech Psych: Mental Status: mental status grossly normal Objective Data Vital Signs Vital Signs: Vital Signs - 24 hr 09/20/21 16:42 09/20/21 16:53 09/20/21 20:00 Temperature 98.5 F Pulse Rate 104 H 98 92 Respiratory Rate 16 Blood Pressure 137/57 L Pulse Oximetry 93 09/20/21 22:00 09/21/21 00:00 09/21/21 04:00 Temperature 98.5 F Pulse Rate 93 83 69 Respiratory Rate 16 Blood Pressure 160/76 H Pulse Oximetry 95 09/21/21 06:00 09/21/21 08:00 09/21/21 08:40 Temperature 97.5 F L Pulse Rate 88 90 Respiratory Rate 18 18 Blood Pressure 145/62 H Pulse Oximetry 95 95 95 09/21/21 14:00 Temperature 97.9 F Pulse Rate 94 Respiratory Rate 18 Blood Pressure 149/54 H Pulse Oximetry 99 Intake/Output Intake/Output: Intake & Output 09/18/21 09/19/21 09/20/21 09/21/21 23:59 23:59 23:59 23:59 Intake Total 1000 2160 3160 740 Output Total 100 1925 3200 1750 Balance 900 Meds/Results Medications: Active Medications Generic Name Dose Route Start Last Admin Trade Name Freq PRN Reason Stop Dose Admin Acetaminophen 1,000 mg 09/20/21 10:18 Acetaminophen 500 Mg Tablet PO Q6H PRN Pain or Fever Albuterol 1 puff 09/18/21 23:46 Albuterol Sulfate (*Sp) Aerosol 1 Puff INHALATION QID PRN Respiratory Distress Amlodipine Besylate 5 mg 09/21/21 09:00 09/21/21 09:26 Amlodipine Besylate 5 Mg Tablet PO 5 mg DAILY AQUILINO Administration Dextrose 12.5 gm 09/18/21 20:26 Dextrose 50% 25 Gm/50 Ml Syringe IV PUSH PRN PRN Hypoglycemia Protocol Ergocalciferol 50,000 unit 09/21/21 09:00 09/21/21 09:27 Ergocalciferol 50,
[2021-09-21 16:36] LABS: Glucose Point of Care 177 mg/dl (65-105)
[2021-09-21 21:09] LABS: Glucose Point of Care 143 mg/dl (65-105)
[2021-09-21] MEDS: HEPARIN SODIUM 5,000 UNITS/ML VIAL 5000 UNITS SUB-Q (21:09)
[2021-09-22] VITALS (11 sets, daily range): BP systolic 136–146; BP diastolic 46–60; PULSE 60–95; RESP 16–20; TEMP 36.3–36.7; O2SAT 93–97
[2021-09-22 06:45] LABS: Basophils Absolute Auto 0.1 K/mm3 (0.0-0.1); Basophils Percent Auto 0.8 % (0.2-1.2); Eosinophils Absolute Auto 0.5 K/mm3 (0-0.3); Eosinophils Percent Auto 4.9 % (0-4.4); Hematocrit 25.6 % (37.0-47.0); Hemoglobin 8.3 g/dL (12.0-15.0); Immature Granulocyte Absolute 0.62 K/mm3 (0.00-0.031); Immature Granulocyte Percent A 6.2 % (0-0.5); Lymphocytes Absolute Auto 2.73 K/mm3 (0.9-3.2); Lymphocytes Percent Auto 27.3 % (18.3-44.2); Mean Corpuscular HGB Conc 32.4 g/dl (32-36); Mean Corpuscular Hemoglobin 30.1 pg (26-34); Mean Corpuscular Volume 92.8 fl (80-100); Mean Platelet Volume 8.7 fl (7.4-10.4); Monocytes Absolute Auto 0.6 K/mm3 (0.1-0.6); Monocytes Percent Auto 6.1 % (2.6-8.5); Neutrophils Absolute Auto 5.5 K/mm3 (1.3-6.7); Neutrophils Percent Auto 54.7 % (45.5-73.1); Platelet Count Result 139 k/mm3 (150-375); Red Blood Count 2.76 M/mm3 (4.2-5.4); Red Cell Distribution Width 14.2 % (11.5-14.5)
[2021-09-22 06:50] LABS: Anion Gap 8 mmol/L (8-16); Blood Urea Nitrogen 36 mg/dL (7-17); Calcium 7.5 mg/dL (8.4-10.2); Carbon Dioxide 24 mmol/L (22-30); Chloride 110 mmol/L (98-107); Estimated CRCL calculation 14 ml/min; Estimated Glomerular Filt Rate 11; Glucose 129 mg/dL (65-110); Magnesium 1.2 mg/dL (1.6-2.3); Potassium 3.3 mmol/L (3.4-5.0); Sodium 142 mmol/L (137-145)
[2021-09-22 08:17] LABS: Glucose Point of Care 143 mg/dl (65-105)
[2021-09-22] MEDS: TOPIRAMATE 25 MG TABLET PO (09:29)
[2021-09-22] MEDS: VITAMIN B COMPLEX/VIT C CAPSULE 1 EACH PO (09:29)
[2021-09-22] MEDS: HEPARIN SODIUM 5,000 UNITS/ML VIAL 5000 UNITS SUB-Q ×2 (09:30→21:10)
[2021-09-22] MEDS: predniSONE 5 MG TABLET PO (09:30)
[2021-09-22] MEDS: SACCHAROMYCES BOULARDII 250 MG CAPSULE PO (09:30)
[2021-09-22] MEDS: amLODIPine BESYLATE 5 MG TABLET PO (09:30)
[2021-09-22] MEDS: PANTOPRAZOLE 40 MG TABLET PO (09:30)
--- NOTE | 2021-09-22 10:02 | P.PNNP_ITS ---
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 * infection/sepsis (culture with no growth though) * creatinine improving with interventions to date (stent, IVF hydration, holding nephrotic agents) * replace magnesium and K+ today - change to diabetic diet from renal diet * follow trend of repeat labs and UOP (2) Chronic kidney disease, stage IV (severe): Code(s): N18.4 - Chronic kidney disease, stage 4 (severe) Status: Chronic Assessment and Plan: * baseline creatinine runs around 1.8 - 2.3mg/dl in the last 6 months * due to a combo of HTN, DM, MADDY, vascular disease, and nephrolithiasis (3) Left ureteral calculus: Code(s): N20.1 - Calculus of ureter Status: Acute Assessment and Plan: * 9 stones in proximal left ureter measuring up to 4 mm with mild hydronephrosis and proximal hydroureter as per admission CT of A/P * s/p cystoscopy, left retrograde pyelography and left ureteral stent placement on 09/18/21 * Urology following (4) Urinary tract infection: Code(s): N39.0 - Urinary tract infection, site not specified Status: Acute Assessment and Plan: * admission urinalysis suggestive * urine culture without growth x 2 * holding antibiotics (5) Hypertension: Code(s): I10 - Essential (primary) hypertension Status: Chronic Assessment and Plan: * relative hypotension on admission * hemodynamics appear to be doing better * follow trend (6) Anemia: Code(s): D64.9 - Anemia, unspecified Status: Acute Assessment and Plan: * likely due to LOLA, CKD, and acute illness * follow trend of H/H - since improving, hold off on OLIVIA (7) Diabetes: Onset Date: ~2007 Qualifiers: Diabetes mellitus complication detail: with nephropathy Diabetes [facility] complication status: with kidney complications 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 Subjective Date/time seen: 09/22/21 10:02 Appears to be doing reasonably well; feels the food/diet is a bit restrictive but eating and drinking reasonably well; continues to have good urine output in general; no apparent distress noted; no issues/events overnight or earlier this AM; working with PT/OT as tolerated. Exam Narrative: General: WD/WN female in NAD Heart: normal S1 and S2; no rub Lungs: clear to auscultation Abdomen: soft, nontender, nondistended, positive bowel sounds Extremities: no cyanosis or clubbing; no edema Skin: no rash Objective Data Vital Signs Vital Signs: Vital Signs Temp Pulse Resp BP Pulse Ox 09/22/21 06:00 36.3 C L 89 16 146/60 H 94 09/22/21 04:00 60 09/22/21 01:50 86 93 09/22/21 00:00 70 09/21/21 21:42 36.4 C 90 16 135/56 L 94 09/21/21 20:45 91 94
--- NOTE | 2021-09-22 10:02 | PM.PNNEP ---
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-I use FIRE PROTECTION SPECIALIST infection/sepsis (culture with no growth though) creatinine improving with interventions to date (stent, IVF hydration, holding nephrotic agents) replace magnesium and K+ today - change to diabetic diet from renal diet follow trend of repeat labs and UOP (2) Chronic kidney disease, stage IV (severe): Code(s): N18.4 - Chronic kidney disease, stage 4 (severe) Status: Chronic Assessment and Plan: baseline creatinine runs around 1.8 - 2.3mg/dl in the last 6 months due to a combo of HTN, DM, MADDY, vascular disease, and nephrolithiasis (3) Left ureteral calculus: Code(s): N20.1 - Calculus of ureter Status: Acute Assessment and Plan: 9 stones in proximal left ureter measuring up to 4 mm with mild hydronephrosis and proximal hydroureter as per admission CT of A/P s/p cystoscopy, left retrograde pyelography and left ureteral stent placement on 09/18/21 Urology following (4) Urinary tract infection: Code(s): N39.0 - Urinary tract infection, site not specified Status: Acute Assessment and Plan: admission urinalysis suggestive urine culture without growth x 2 holding antibiotics (5) Hypertension: Code(s): I10 - Essential (primary) hypertension Status: Chronic Assessment and Plan: relative hypotension on admission hemodynamics appear to be doing better follow trend (6) Anemia: Code(s): D64.9 - Anemia, unspecified Status: Acute Assessment and Plan: likely due to LOLA, CKD, and acute illness follow trend of H/H - since improving, hold off on OLIVIA (7) Diabetes: Onset Date: ~2007 Qualifiers: Diabetes mellitus complication detail: with nephropathy Diabetes mellitus complication status: with kidney complications Diabetes mellitus mcfp insulin use: without disability liaison officer use Diabetes mellitus type: type 2 Qualified Code(s): E11.21 - Type 2 diabetes mellitus with diabetic nephropathy Code(s): E11.9 - Type 2 diabetes mellitus without complications Status: Chronic Assessment and Plan: follow accuchecks glycemic control Will continue to follow. Subjective Date/time seen: 09/22/21 10:02 Appears to be doing reasonably well; feels the food/diet is a bit restrictive but eating and drinking reasonably well; continues to have good urine output in general; no apparent distress noted; no issues/events overnight or earlier this AM; working with PT/OT as tolerated. Exam Narrative: General: WD/WN female in NAD Heart: normal S1 and S2; no rub Lungs: clear to auscultation Abdomen: soft, nontender, nondistended, positive bowel sounds Extremities: no cyanosis or clubbing; no edema Skin: no rash Objective Data Vital Signs Vital Signs: Vital Signs Temp Pulse Resp BP Pulse Ox 09/22/21 06:00 36.3 C L 89 16 146/60 H 94 09/22/21 04:00 60 09/22/21 01:50 86 93 09/22/21 00:00 70 09/21/21 21:42 36.4 C 90 16 135/56 L 94 09/21/21 20:45 91 94 09/21/21 20:00 86 09/21/21 16:00 91 09/21/21 14:00 36.6 C 94 18 149/54 H 99 09/21/21 12:00 89 Intake/Output Intake/Output: Intake & Output 09/19/21 09/20/21 09/21/21 09/22/21 23:59 23:59 23:59 23:59 Intake Total 2160 3160 2380 990 Output Total 1925 3200 1750 850 Balance 235 -40 630 140 Meds/Results Medications: Active Medications Generic Name Dose Route Start Last Admin Trade Name Freq PRN Reason Stop Dose Admin Acetaminophen 1,000 mg 09/20/21 10:18 Acetaminophen 500 Mg Tablet PO Q6H PRN Pain or Fever Albuterol 1 puff 09/18
--- NOTE | 2021-09-22 10:09 | PM.IMPN ---
Progress Note: A&P Additional Plan 71-year-old female with history of kidney stones, hypertension, type 2 diabetes mellitus, chronic kidney disease, anemia, and sleep apnea, admitted to the hospital for nephrolithiasis, LOLA, and sepsis from UTI. She is s/p cystoscopy, left retrograde pyelography and left ureteral stent placement on 09/18/21. 1)LOLA on preexisting CKD stage 4: 2/2 obstructive uropathy in setting of kidney stones Appreciate Renal and Urology help Slowly improving creatinine Avoid nephrotoxins Recheck BMP in AM Supplement mag and potasium 2)Sepsis: ruled out Urine culture negative upon admission Repeat urine culture pending off antibiotic 3)Diabetes Mellitus: BG check TID AC BG stable c/w low dose SS premeal insulin holding oral home agents HBA1C 5.6 4)Anemia: Likely anemia of chronic disease Will likely benefit from epogen Defer to Nephrology 5)Code:Full 6)DVT ppx:hep sq 7)Dispo:pending improvement in kidney function Time Spent With Patient Time with patient: 25 - 35 minutes Subjective Date/time seen: 09/22/21 10:09 Interval history: no acute events overnight Feeling better sitting comfortably in chair Review of Systems Review of Systems: All systems reviewed & are unremarkable except as noted in HPI and below Constitutional: Constitutional: Reports no additional constitutional complaints Eyes: Eyes: Reports as per HPI ENT: Reports as per HPI Cardiovascular: Cardiovascular: Reports no additional cardiovascular complaints Respiratory: Respiratory: Reports no additional respiratory complaints Gastrointestinal: Gastrointestinal: Reports no additional gastrointestinal complaints Neurologic: Reports system reviewed and no additional complaints, except as documented Exam Const: General: comfortable and no acute distress HENMT: Mouth: Yes Abnormal oral and palatal mucosa present Eyes: Pupils: Equal, round and reactive pupils present Neck: Neck: supple Resp: Effort & Inspection: normal respiratory effort Auscultation: clear to auscultation bilaterally Cardio: Rate: regular rate Rhythm: regular rhythm GI: GI Palp: Yes Soft to palpation Auscultation: normal bowel sounds Skin: General skin exam: normal color Neuro: Cognition (Neuro): normal cognition Speech: normal speech Extrem: General: pedal edema Psych: Mental Status: mental status grossly normal Objective Data Vital Signs Vital Signs: Vital Signs - 24 hr 09/21/21 12:00 09/21/21 14:00 09/21/21 16:00 Temperature 97.9 F Pulse Rate 89 94 91 Respiratory Rate 18 Blood Pressure 149/54 H Pulse Oximetry 99 09/21/21 20:00 09/21/21 20:45 09/21/21 21:42 Temperature 97.6 F Pulse Rate 86 91 90 Respiratory Rate 16 Blood Pressure 135/56 L Pulse Oximetry 94 94 09/22/21 00:00 09/22/21 01:50 09/22/21 04:00 Temperature Pulse Rate 70 86 60 Respiratory Rate Blood Pressure Pulse Oximetry 93 09/22/21 06:00 Temperature 97.4 F L Pulse Rate 89 Respiratory Rate 16 Blood Pressure 146/60 H Pulse Oximetry 94 Intake/Output Intake/Output: Intake & Output 09/19/21 09/20/21 09/21/21 09/22/21 23:59 23:59 23:59 23:59 Intake Total 2160 3160 2380 990 Output Total 1925 3200 1750 850 Balance 235 -40 630 140 Meds/Results Medications: Active Medications Generic Name Dose Route Start Last Admin Trade Name Freq PRN Reason Stop Dose Admin Acetaminophen 1,000 mg 09/20/21 10:18 Acetaminophen 500 Mg Tablet PO Q6H PRN Pain or Fever Albuterol 1 puff 09/18/21 23:46 Albuterol Sulfate (*Sp) Aerosol 1 Puff INHALATION QID PRN Respiratory Distress Amlodipine Besylate 5 mg 09/21/21 09:00 09/22/21 09:30 Amlodipine Besylate 5 Mg Tablet PO 5 mg DAILY AQUILINO Administration Dextrose 12.5 gm 09/18/21 20:26 Dextrose 50% 25 Gm/50 Ml Syringe IV PUSH PRN PRN Hypoglycemia Protocol Ergocalciferol 50,000 unit 09/21/21 09:00 09/21/21
[2021-09-22] MEDS: POTASSIUM CHLORIDE 20 MEQ PACKET (FOR LIQUID) 40 MEQ PO (11:04)
[2021-09-22] MEDS: MAGNESIUM OXIDE 400 MG TABLET PO ×2 (11:04→16:51)
[2021-09-22 11:36] LABS: Glucose Point of Care 185 mg/dl (65-105)
[2021-09-22 16:34] LABS: Glucose Point of Care 206 mg/dl (65-105)
[2021-09-22] MEDS: INSULIN ASPART (*BKC) 100 UNITS/ML SUB-Q (16:51)
[2021-09-22 21:22] LABS: Glucose Point of Care 135 mg/dl (65-105)
[2021-09-23 01:04] VITALS: O2SAT 95
[2021-09-23 05:45] VITALS: BP 115/54; PULSE 84; RESP 16; TEMP 36.2; O2SAT 100
[2021-09-23 06:36] LABS: Alanine Aminotransferase 14 U/L (4-35); Albumin Level 3.1 g/dL (3.5-5.1); Alkaline Phosphatase 85 U/L (38-126); Anion Gap 6 mmol/L (8-16); Aspartate Amino Transferase 28 U/L (14-36); Bilirubin,Total 0.2 mg/dL (0.2-1.3); Blood Urea Nitrogen 31 mg/dL (7-17); Calcium 7.6 mg/dL (8.4-10.2); Carbon Dioxide 26 mmol/L (22-30); Chloride 109 mmol/L (98-107); Estimated CRCL calculation 18 ml/min; Estimated Glomerular Filt Rate 15; Glucose 128 mg/dL (65-110); Hematocrit 26.1 % (37.0-47.0); Hemoglobin 8.2 g/dL (12.0-15.0); Magnesium 1.2 mg/dL (1.6-2.3); Potassium 3.5 mmol/L (3.4-5.0); Sodium 141 mmol/L (137-145)
[2021-09-23 07:40] LABS: Glucose Point of Care 156 mg/dl (65-105)
[2021-09-23] MEDS: SACCHAROMYCES BOULARDII 250 MG CAPSULE PO (08:39)
[2021-09-23] MEDS: predniSONE 5 MG TABLET PO (08:39)
[2021-09-23] MEDS: VITAMIN B COMPLEX/VIT C CAPSULE 1 EACH PO (08:39)
[2021-09-23] MEDS: TOPIRAMATE 25 MG TABLET PO (08:39)
[2021-09-23] MEDS: amLODIPine BESYLATE 5 MG TABLET PO (08:40)
[2021-09-23] MEDS: PANTOPRAZOLE 40 MG TABLET PO (08:40)
[2021-09-23] MEDS: HEPARIN SODIUM 5,000 UNITS/ML VIAL 5000 UNITS SUB-Q (10:12)
[2021-09-23 11:32] LABS: Glucose Point of Care 171 mg/dl (65-105)
[2021-09-23] MEDS: EPOETIN ALFA-EPBX 10,000 UNITS/ML VIAL 10000 UNITS SUB-Q (11:49)
--- NOTE | 2021-09-23 12:08 | P.PNNP_ITS ---
Progress Note: A&P Assessment and Plan (1) LOLA (acute kidney injury): Code(s): N17.9 - Acute kidney failure, unspecified Status: Acute Assessment and Plan: * multifactorial etiology: * obstructive uropathy (see #3) * prerenal factors (poor oral intake + vomiting) * NSAID use * continued FRANCO-I use FISHER DIVING * infection/sepsis (culture with no growth though) * creatinine improving with interventions to date (stent, IVF hydration, holding nephrotic agents) * follow trend of repeat labs and UOP (2) Chronic kidney disease, stage IV (severe): Code(s): N18.4 - Chronic kidney disease, stage 4 (severe) Status: Chronic Assessment and Plan: * baseline creatinine runs around 1.8 - 2.3mg/dl in the last 6 months * due to a combo of HTN, DM, MADDY, vascular disease, and nephrolithiasis (3) Left ureteral calculus: Code(s): N20.1 - Calculus of ureter Status: Acute Assessment and Plan: * 9 stones in proximal left ureter measuring up to 4 mm with mild hydronephrosis and proximal hydroureter as per admission CT of A/P * s/p cystoscopy, left retrograde pyelography and left ureteral stent placement on 09/18/21 * Urology following (4) Urinary tract infection: Code(s): N39.0 - Urinary tract infection, site not specified Status: Acute Assessment and Plan: * admission urinalysis suggestive * urine culture without growth x 2 * holding antibiotics (5) Hypertension: Code(s): I10 - Essential (primary) hypertension Status: Chronic Assessment and Plan: * relative hypotension on admission * hemodynamics appear to be doing better * follow trend (6) Anemia: Code(s): D64.9 - Anemia, unspecified Status: Acute Assessment and Plan: * likely due to LOLA, CKD, and acute illness * follow trend of H/H - since improving, hold off on OLIVIA (7) Diabetes: Onset Date: ~2007 Qualifiers: Diabetes mellitus complication detail: with nephropathy Diabetes mellitus complication status: with kidney complications Diabetes mellitus exterminator helper insulin use: without chcf use Diabetes mellitus type: type 2 Qualified Code(s): E11.21 - Type 2 diabetes mellitus with diabetic nephropathy Code(s): E11.9 - Type 2 diabetes mellitus without complications Status: Chronic Assessment and Plan: * follow accuchecks * glycemic control Not opposed to discharge today from renal perspective if otherwise medically stable. Will continue to follow. Subjective Date/time seen: 09/23/21 12:08 No new issues or problems to report at this time; sitting in chair quite comfortably on my visit; feels quite well with no apparent distress voiced; no e vents overnight or earlier this AM; family at bedside and we discussed the situation; quite anxious for discharge. Exam Narrative: General: WD/WN female in NAD Heart: normal S1 and S2; no rub Lungs: clear to auscultation Abdomen: soft, nontender, nondistended, positive bowel sounds Extremities: no cyanosis or clubbing; no edema Skin: no nodules Objective Data Vital Signs Vital Signs: Vital Signs Temp Pulse Resp BP Pulse Ox 09/23/21 05:45 36.2 C L 84 16 115/54 L 100 09/23/21 01:04 95 09/22/21 23:10 94 09/22/21 21:47 36.7 C 86 16 136/46 L 97 09/22/21 20:10 96 09/22/21 16:00 84
--- NOTE | 2021-09-23 12:08 | PM.PNNEP ---
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-I use BRAID MAKER infection/sepsis (culture with no growth though) creatinine improving with interventions to date (stent, IVF hydration, holding nephrotic agents) follow trend of repeat labs and UOP (2) Chronic kidney disease, stage IV (severe): Code(s): N18.4 - Chronic kidney disease, stage 4 (severe) Status: Chronic Assessment and Plan: baseline creatinine runs around 1.8 - 2.3mg/dl in the last 6 months due to a combo of HTN, DM, MADDY, vascular disease, and nephrolithiasis (3) Left ureteral calculus: Code(s): N20.1 - Calculus of ureter Status: Acute Assessment and Plan: 9 stones in proximal left ureter measuring up to 4 mm with mild hydronephrosis and proximal hydroureter as per admission CT of A/P s/p cystoscopy, left retrograde pyelography and left ureteral stent placement on 09/18/21 Urology following (4) Urinary tract infection: Code(s): N39.0 - Urinary tract infection, site not specified Status: Acute Assessment and Plan: admission urinalysis suggestive urine culture without growth x 2 holding antibiotics (5) Hypertension: Code(s): I10 - Essential (primary) hypertension Status: Chronic Assessment and Plan: relative hypotension on admission hemodynamics appear to be doing better follow trend (6) Anemia: Code(s): D64.9 - Anemia, unspecified Status: Acute Assessment and Plan: likely due to LOLA, CKD, and acute illness follow trend of H/H - since improving, hold off on OLIVIA (7) Diabetes: Onset Date: ~2007 Qualifiers: Diabetes mellitus complication detail: with nephropathy Diabetes mellitus complication status: with kidney complications Diabetes mellitus intermodal truck driver insulin use: without intermodal truck driver use Diabetes mellitus type: type 2 Qualified Code(s): E11.21 - Type 2 diabetes mellitus with diabetic nephropathy Code(s): E11.9 - Type 2 diabetes mellitus without complications Status: Chronic Assessment and Plan: follow accuchecks glycemic control Not opposed to discharge today from renal perspective if otherwise medically stable. Will continue to follow. Subjective Date/time seen: 09/23/21 12:08 No new issues or problems to report at this time; sitting in chair quite comfortably on my visit; feels quite well with no apparent distress voiced; no events overnight or earlier this AM; family at bedside and we discussed the situation; quite anxious for discharge. Exam Narrative: General: WD/WN female in NAD Heart: normal S1 and S2; no rub Lungs: clear to auscultation Abdomen: soft, nontender, nondistended, positive bowel sounds Extremities: no cyanosis or clubbing; no edema Skin: no nodules Objective Data Vital Signs Vital Signs: Vital Signs Temp Pulse Resp BP Pulse Ox 09/23/21 05:45 36.2 C L 84 16 115/54 L 100 09/23/21 01:04 95 09/22/21 23:10 94 09/22/21 21:47 36.7 C 86 16 136/46 L 97 09/22/21 20:10 96 09/22/21 16:00 84 09/22/21 13:45 36.3 C L 89 20 141/53 H 96 Intake/Output Intake/Output: Intake & Output 09/20/21 09/21/21 09/22/21 09/23/21 23:59 23:59 23:59 23:59 Intake Total 3160 2380 3830 990 Output Total 3200 1750 1390 1300 Balance -40 630 2440 -310 Meds/Results Medications: Active Medications Generic Name Dose Route Start Last Admin Trade Name Freq PRN Reason Stop Dose Admin Acetaminophen 1,000 mg 09/20/21 10:18 Acetaminophen 500 Mg Tablet PO Q6H PRN Pain or Fever Albuterol 1 puff 09/18/21 23:46 Albuterol Sulfate (*Sp) Aerosol 1 Puff INHALATION
--- NOTE | 2021-09-23 13:18 | PCOTNOTE ---
Attempted to see patient this pm, however recommend discharge from services. Pt ambulating to and from bathroom independently. Pt stated, Yeah, I'm ready to go home. Of course, it's easier at home because my toilet is lower. Pt reported possible discharge today. Pt stated she had no concerns as pertains to OT. Family present and witness at this time.
--- NOTE | 2021-09-23 13:59 | PM.DS ---
DS: Admitting Diagnosis Discharge Date 09/23/2021 Admitting Diagnosis Sepsis DS: Discharge Diagnosis Discharge Diagnosis (1) Sepsis: Code(s): A41.9 - Sepsis, unspecified organism Status: Acute Assessment and Plan: -SOFA score on arrival was 5 with thrombocytopenia and acute kidney injury in the setting of urinary tract infection. -Blood pressures have been stable with MAP greater than 70. But remains slightly tachy with HR 90s. -Lactic acid level is within normal limits. -Blood and urine cultures no growths - WNL. -received adequate IV resuscitation on admission -sepsis resolved during the hospital stay (2) Left ureteral calculus: Code(s): N20.1 - Calculus of ureter Status: Acute Assessment and Plan: -CT shows approximately 9 stones in the proximal left ureter with mild hydronephrosis and proximal hydroureter. -s/p cystoscopy, left retrograde pyelography and left ureteral stent placement 09/18/21 9 stones in proximal left ureter measuring up to 4 mm with mild hydronephrosis and proximal hydroureter as per admission CT of A/P s/p cystoscopy, left retrograde pyelography and left ureteral stent placement on 09/18/21 Urology following, Per Diem Rn following. Follow-up with urology as an outpatient basis Potassium citrate 20 mg p.o. t.i.d. ordered for home follow-up with CT in 8 weeks to re-evaluate and as an outpatient basis. (3) Kacav-po-ctzyjce kidney injury: Code(s): N17.9 - Acute kidney failure, unspecified; N18.9 - Chronic kidney disease, unspecified Status: Acute Assessment and Plan: multifactorial etiology: nephrolithiasis/ obstructive uropathy (see #3) prerenal factors (poor oral intake + vomiting), hypovolemia from poor intake and ongoing vomiting NSAID use continued FRANCO-I use LEAN FACILITATOR infection/sepsis (culture no growth during hospital stay) HTN, DM, MADDY, vascular disease, creatinine improving with interventions to date (stent, IVF hydration, holding nephrotic agents) aggressively hydrated in the emergency department and had been receiving 125/hr NS for sepsis protocol. Since the procedure she is feeling better and tolerating PO , abdomen off at the time discharge follow trend of repeat labs and UOP creat on arrival 8.2, baseline appears to be around 1.8-2 (last creatinine 1.4 on 08/06/20 and 12/03/20) discharge creatinine at 3.1 Recheck creatinine in 1 week Nephrology following to the hospital stay. Avoiding nephrotoxic agents - imperative. (4) Urinary tract infection: Code(s): N39.0 - Urinary tract infection, site not specified Status: Acute Assessment and Plan: -was on ceftriaxone at admission, now off all antibiotics. -blood and urine cultures show no growth -UTI not confirmed yet. (5) Diastolic dysfunction: Code(s): I51.89 - Other ill-defined heart diseases Status: Acute Assessment and Plan: -She has been aggressively hydrated and we will need to monitor her volume status closely to avoid over-hydration. -1-2+ edema to BLE -stopped IVFs -elevate BLE, ordered JAMMIE hose stockings applied. (6) Non-insulin dependent type 2 diabetes mellitus: Code(s): E11.9 - Type 2 diabetes mellitus without complications Status: Acute Assessment and Plan: -Glimepiride on hold given renal function. -Initiate sliding scale insulin, Accu-Cheks, and hypoglycemic protocol. -A1c 5.6 -glucose controlled at this time Resume medication at home (7) Obstructive sleep apnea on CPAP: Code(s): G47.33 - Obstructive sleep apnea (adult) (pediatric); Z99.89 - Dependence on other enabling machines and devices Status: Acute Assessment and Plan: -CPAP will be available for the patient to use while hospitalized. (8) Hypertension: Code(s): I10 - Essential (primary) hypertension Status: Chronic Assessment and Plan: relative hypotension on admission hemodynamics appea
[2021-09-23 14:00] VITALS: BP 143/51; PULSE 89; RESP 14; TEMP 36.3; O2SAT 98
== END 2021-09-23 15:05 | disposition home or self-care (01) | DRG 660 ==
LOC: ANHED 15:45 → ANH3MED 15:59 → ANH3MEDSUR 09-20 17:52
PROVIDERS: Internal Medicine; Nurse Practitioner; Physician Assistant; Urology; Admitting Provider Internal Medicine; Emergency Provider General Practice; PCP Family Medicine; Visit Provider Internal Medicine
PROC: BT1FYZZ Fluoroscopy of Left Kidney, Ureter and Bladder using Other Contrast (ICD-10-PCS; CPT 52352; principal; 2021-09-18 16:00)
DX: N17.9 Acute kidney failure, unspecified (principal); N20.2 Calculus of kidney with calculus of ureter; N18.4 Chronic kidney disease, stage 4 (severe); Z20.822 Contact with and (suspected) exposure to COVID-19; I12.9 Hypertensive chronic kidney disease with stage 1 through stage 4 chronic kidney disease, or unspecified chronic kidney disease; E11.22 Type 2 diabetes mellitus with diabetic chronic kidney disease; G47.33 Obstructive sleep apnea (adult) (pediatric); Z99.89 Dependence on other enabling machines and devices; E11.21 Type 2 diabetes mellitus with diabetic nephropathy; E86.0 Dehydration; E78.00 Pure hypercholesterolemia, unspecified; K21.9 Gastro-esophageal reflux disease without esophagitis; E66.01 Morbid (severe) obesity due to excess calories; Z82.49 Family history of ischemic heart disease and other diseases of the circulatory system; Z80.6 Family history of leukemia; Z80.0 Family history of malignant neoplasm of digestive organs; D63.8 Anemia in other chronic diseases classified elsewhere; R06.02 Shortness of breath; Z79.899 Other long term (current) drug therapy; Z79.52 Long term (current) use of systemic steroids; Z79.1 Long term (current) use of non-steroidal anti-inflammatories (NSAID)
CPT/HCPCS: 36415; 71045; 74018; 74176; 74420; 80048; 80053; 80061; 81001; 82550; 82948; 83036; 83605; 83690; 83735; 83880; 84100; 84443; 85014; 85018; 85025; 87040; 87086; 93306; 96361; 96374; 97110; 97116; 97161; 97165; 97530; 97535; 99291; A9270; C1758; C1769; C2617; C9803; J0131; J0696; J1644; J1815; J2250; J2405; J2704; J7030; J7040; J7512; Q5105; Q9966; U0003; U0005

== ENCOUNTER 2021-09-29 10:11 | Outpatient (CLI) | payer MEDICARE, MEDICAID, SELFPAY ==
[2021-09-29 18:43] LABS: Basophils Absolute Auto 0.1 K/mm3 (0.0-0.1); Basophils Percent Auto 0.5 % (0.2-1.2); Eosinophils Absolute Auto 0.5 K/mm3 (0-0.3); Eosinophils Percent Auto 2.5 % (0-4.4); Hematocrit 34.4 % (37.0-47.0); Hemoglobin 10.6 g/dL (12.0-15.0); Immature Granulocyte Absolute 0.33 K/mm3 (0.00-0.031); Immature Granulocyte Percent A 1.8 % (0-0.5); Lymphocytes Absolute Auto 3.32 K/mm3 (0.9-3.2); Lymphocytes Percent Auto 17.9 % (18.3-44.2); Mean Corpuscular HGB Conc 30.8 g/dl (32-36); Mean Corpuscular Hemoglobin 29.7 pg (26-34); Mean Corpuscular Volume 96.4 fl (80-100); Mean Platelet Volume 9.3 fl (7.4-10.4); Monocytes Absolute Auto 1.2 K/mm3 (0.1-0.6); Monocytes Percent Auto 6.5 % (2.6-8.5); Neutrophils Absolute Auto 13.1 K/mm3 (1.3-6.7); Neutrophils Percent Auto 70.8 % (45.5-73.1); Platelet Count Result 311 k/mm3 (150-375); Red Blood Count 3.57 M/mm3 (4.2-5.4); Red Cell Distribution Width 15.2 % (11.5-14.5); White Blood Count 18.5 K/mm3 (4.5-10.0)
[2021-09-29 19:06] LABS: Anion Gap 9 mmol/L (8-16); Blood Urea Nitrogen 17 mg/dL (7-17); Calcium 9.5 mg/dL (8.4-10.2); Carbon Dioxide 28 mmol/L (22-30); Chloride 104 mmol/L (98-107); Estimated Glomerular Filt Rate 23; Glucose 103 mg/dL (65-110); Potassium 4.7 mmol/L (3.4-5.0); Sodium 141 mmol/L (137-145)
== END 2021-09-29 10:12 | disposition home or self-care (01) ==
PROVIDERS: PCP Family Medicine; Visit Provider Family Medicine
DX: D64.9 Anemia, unspecified (principal); N17.9 Acute kidney failure, unspecified; N18.9 Chronic kidney disease, unspecified
CPT/HCPCS: 36415; 80048; 85025

== ENCOUNTER 2021-09-30 09:30 | Outpatient (CLI) | payer MEDICARE, MEDICAID, SELFPAY ==
--- NOTE | ~2021-09-30 | CT_ITS ---
EXAMINATION: CT abdomen pelvis wo con DATE: 09/30/2021 10:07 INDICATION: Left flank pain TECHNIQUE: Computed tomography (CT) of the abdomen and pelvis was performed without intravenous contr ast. Automated exposure control and iterative reconstruction technique were employed. The dose-length product was 527.25 mGy-cm. COMPARISON: 08/21/2021 FINDINGS: Mild atelectasis at the lingula. Heart size is normal. Atherosclerotic coronary artery calcification. No pericardial or pleural effusion. Multiple hepatic and splenic calcific lesions consistent with ol d granulomatous disease. Cholecystectomy clips the gallbladder fossa. Pancreas and bilateral adrenal glands are normal. Asymmetric mild to moderate right renal atrophy. Bilateral nephrolithiasis with 3 stones measuring up to 3 mm in the right kidney. There is a 1.5 cm stone or cluster of stones in an i nferior calyx of the left kidney. Left internal ureteral stent with loops formed at upper pole calyx of the left kidney and in the bladder. There is an additional 4-5 mm stone in the proximal left urete r alongside the ureteral stent is appreciated on series 3, image 104 absent 105 and sagittal series 6 02, image 108. There is mild colonic diverticulosis with a sigmoid predominance. There is no adjacen t inflammatory change to suggest diverticulitis. No bowel obstruction. Bladder is normal. The uterus and bilateral ovaries are not identified and has likely been surgically resected. Surgical clips in the left hemipelvis. Mild linear retroperitoneal stranding in the left hemipelvis which could represe nt residual scarring related to the prior hysterectomy and oophorectomy or inflammatory stranding rel ated to the left ureteral stone and stenting. No free intraperitoneal gas or fluid. No pathologically enlarged abdominal or pelvic lymphadenopathy. Mild thoracolumbar spondylosis with bridging osteophyt es at multiple levels consistent with diffuse idiopathic skeletal hyperostosis (DISH). IMPRESSION: 1. Bilateral nephrolithiasis with 4-5 mm stone in the proximal left ureter alongside a left internal ureteral stent which is in expected position. Reviewed, dictated and finalized at location A. IMPRESSION: 1. Bilateral nephrolithiasis with 4-5 mm stone in the proximal left ureter aldo gside a left internal ureteral stent which is in expected position.
== END 2021-09-30 09:31 | disposition home or self-care (01) ==
LOC: ANHIMG 09:32
PROVIDERS: PCP Family Medicine; Visit Provider Urology
DX: N20.0 Calculus of kidney (principal); Z96.0 Presence of urogenital implants
CPT/HCPCS: 74176

== ENCOUNTER 2021-10-01 08:57 | Outpatient (CLI) | payer MEDICARE, MEDICAID, SELFPAY ==
[2021-10-01 19:28] LABS: Add Urine Microscopic? YES; Amorphous Sediment Urine Few; Appearance Urine Cloudy (Clear); Bilirubin Urine Negative (Negative); Blood Urine 3+ (Negative); Color Urine Yellow (Yellow); Glucose Urine UA Negative (Negative); Ketones Urine Negative (Negative); Leukocyte Esterase Ur 2+ LEU/UL (NEGATIVE); Mucus Urine Few /lpf; Nitrate Urine Negative (Negative); Protein Urine 2+ mg/dL (Negative); RBC Urine >75 /hpf (0-2); Specific Grav Ur 1.015 (1.001-1.035); Squamous Epithelial Cell Urine Occasional /hpf (Few); Urobilinogen Urine Negative mg/dL (<2.0); WBC Urine 51-75 /hpf (0-3)
== END 2021-10-01 08:58 | disposition home or self-care (01) ==
PROVIDERS: PCP Family Medicine; Visit Provider Family Medicine
DX: D72.829 Elevated white blood cell count, unspecified (principal); R32 Unspecified urinary incontinence
CPT/HCPCS: 81001; 87086

== ENCOUNTER 2021-10-02 10:55 | Outpatient (CLI) | payer MEDICARE, MEDICAID, SELFPAY ==
[2021-10-02 12:16] LABS: INR 1.2; Prothrombin Time 14.8 Seconds (11.1-14.7)
[2021-10-02 12:17] LABS: Partial Thromboplastin Time 25.6 SECONDS (22.3-36.8)
== END 2021-10-02 10:56 | disposition home or self-care (01) ==
PROVIDERS: Anesthesiology; PCP Family Medicine; Visit Provider Urology
DX: Z01.818 Encounter for other preprocedural examination (principal); N18.4 Chronic kidney disease, stage 4 (severe)
CPT/HCPCS: 36415; 85610; 85730

== ENCOUNTER → 2021-10-05 03:17 | Outpatient (CLI) | payer MEDICARE, MEDICAID, SELFPAY ==
[2021-10-05 11:00] LABS: SARS-CoV-2 RNA PCR Negative
== END ==
PROVIDERS: PCP Family Medicine; Visit Provider Urology
DX: Z01.812 Encounter for preprocedural laboratory examination (principal)
CPT/HCPCS: C9803; U0003; U0005

== ENCOUNTER 2021-10-08 00:48 | Day surgery (SDC) | payer MEDICARE, MEDICAID, SELFPAY ==
[2021-10-01 14:04] VITALS: BMI 38.9
--- NOTE | 2021-10-01 14:15 | PC.NURSE ---
Report to the Outpatient Waiting Room, entrance under the green pavilion located off [facility], at time _0630 on date __10/08/21__. OR Time: . - You and your visitor will be asked a series of questions to screen for COVID 19 for your protection. - A mask is required within the hospital. Preoperative COVID Testing Requirements: No COVID Test needed if: (proof is required; if not received patient will have Rapid Test prior to entry) COVID TESTING 10/05/21 AT 0945 - Patient has received COVID Vaccine at least 14 days prior to procedure date or - Patient has positive COVID test result within last 90 days of surgery date. COVID Test needed if above criteria is not met If not COVID vaccinated a COVID test must be conducted within 72 hours of surgery and patient is asked to isolate self from time of testing until procedure. You will go to the [employer] [facility] for your COVID testing. The [employer] [facility] is located at the corner of [address] [facility]. You will only be called if COVID results are positive and your surgeon may reschedule your elective surgery date. Patients may have clear liquids (water, carbonated beverages, clear teas, apple juice) until 3 hours prior to surgery with a maximum of 20 ounces. - No food from midnight until time of surgery - Infants may have breast milk until 4 hours before surgery, formula 6 hours prior to surgery. - Children will be allowed to drink immediately following surgery. If applicable, please bring a bottle or sippy cup to assist with drinking. Juice, water, soda, and popsicles are readily available. For infants on formula, please bring formula the day of surgery. Pacifiers are allowed. Take the following medications with a SIP of water the morning of surgery: ___AMLODIPINE,PREDNISONE Medications to discontinue per physician ALL VITAMINS 3 DAYS PRE OP Date to take last dose___10/04/21 Please no make-up, nail japanese, hairspray, perfume, deodorant, or body powder the day of surgery. No jewelry (including any body piercings) or valuables the day of surgery, leave them at home. Please take a shower or bath the night before, or the morning of, surgery with an antibacterial soap. Wear comfortable, loose fitting clothing. Children are encouraged to wear pajamas. - Jewelry must be removed prior to entering the operating room. Rings and piercings that are not removed may be cut off. - The hospital will not accept responsibility for valuables. - Please leave all valuables, including medications, at home the day of surgery. If you are going home after surgery, a licensed water taxi driver must drive you home. - NO public transportation without another adult. - We recommend that an adult stay with you for 24 hours following discharge. - We also recommend that you do not drive, make important decision, drink alcoholic beverages, or take any drugs that were not prescribed by your health care provider for at least 24 hours after your discharge time. For Pediatric surgeries, we recommend two adults accompany the child home (only one inside the building at this time). One visitor will be allowed to accompany the patient into the hospital. Patients visitor will be instructed to remain with patient at all times or leave the building. We will allow the visitor to come back to the postoperative area when patient is ready. Follow any additional instructions given to you from your surgeon. Telephone instructions given to __PATIENT and asked if any additional questions and then verbalized understanding. Patient advised to call surgeon office or pre surgery nurse liaison [phone] if any additional questions.
[2021-10-08] VITALS (8 sets, daily range): BP systolic 145–155; BP diastolic 57–73; PULSE 91–103; RESP 14–18; TEMP 36.7–37.2; O2SAT 94–100
--- NOTE | ~2021-10-08 | XR_ITS ---
EXAMINATION: XR fluoroscopy no charge DATE: 10/08/2021 09:20 INDICATION: Left internal ureteral stent placement TECHNIQUE: Fluoroscopic images from a left internal ureteral stent placement are submitted for review . 56 seconds of fluoroscopy time. 2 fluoroscopic images. FINDINGS: There is a left double-J internal ureteral stent projecting in expected position, with proximal [place] loop at the level of the renal pelvis and distal loop in the pelvis within the bladder lumen. IMPRESSION: 1. Left internal ureteral stent placement. Please refer to real-time procedural findings for detail s. Reviewed, dictated and finalized at location A. IMPRESSION: 1. Left internal ureteral stent placement. Please refer to real-time procedur al findings for details.
--- NOTE | 2021-10-08 06:21 | WPDANESEPPF ---
Anes - Initial Pre Proc Eval Procedure: Operation Date: 10/08/21 08:30 Proposed Procedures p Cystoscopy, Left Ureteroscopy with Left Stone Extraction, Possible Left Retrograde Pyelogram, Possible Left Stent Placement - Miko Huff MD s Possible Laser Lithotripsy - Miko Huff MD Date/Time: 10/08/21 06:21 Surgeon: Miko Huff MD Pre Op Diagnosis: Lt Ureteral Stone Patient Data Age: 71 Gender: F Height: 1.57 m Weight: 96.65 kg Allergies Allergy/AdvReac Type Severity Reaction Status Date / Time tramadol Allergy Severe Hives Verified 10/08/21 06:52 atorvastatin AdvReac Severe Nausea and Verified 10/08/21 06:52 Vomiting pravastatin AdvReac Intermediate Nausea and Verified 10/08/21 06:52 Vomiting budesonide AdvReac Mild Muscle Verified 10/08/21 06:52 Spasms formoterol AdvReac Mild Muscle Verified 10/08/21 06:52 Spasms Home Medications Medication Instructions Recorded Confirmed Type albuterol sulfate [ProAir HFA] 1 inh INHALATION QID PRN 05/17/19 10/02/21 History Myrbetriq 25 mg PO PRN PRN 10/10/20 10/08/21 History blood sugar diagnostic #100 each 12/10/20 10/02/21 Rx Slofed 60 60 mg PO DAILY 12/30/20 10/08/21 History amlodipine 5 mg tablet 5 mg PO DAILY #90 tablet 03/12/21 10/08/21 Rx vitamin G44-ydnwhun B1 100 mg-1 1 ml IM MONTHLY 05/01/21 10/08/21 History mg/mL intramuscular solution prednisone 5 mg tablet 5 mg PO DAILY #90 tablet 05/29/21 10/08/21 Rx glimepiride 1 mg tablet 1 mg PO DAILY #90 tablet 06/15/21 10/08/21 Rx lancets #100 ea 06/23/21 10/02/21 Rx cholecalciferol (vitamin D3) 1,250 1,250 mcg PO WEEKLY 07/02/21 10/08/21 History mcg (50,000 unit) capsule omeprazole 40 mg capsule,delayed 40 mg PO DAILY #30 cap 07/29/21 10/08/21 Rx release semaglutide 1 mg/dose (4 mg/3 mL) 1 mg SUBCUT WEEKLY 90 Days #9.75 ml 08/04/21 10/08/21 Rx subcutaneous pen injector ascorbic acid (vitamin C) 500 mg PO DAILY 10/01/21 10/08/21 History topiramate 25 mg PO DAILY 10/01/21 10/08/21 History Patient hx anesthesia problems: none Family hx anesthesia problems: none Results Review: All pre-operative results and documents have been reviewed as part of the pre-operative evaluation. [facility] Past Medical History Medical History (Updated 10/08/21 @ 06:22 by Syed Garibay, ) Anemia Asthma Chronic kidney disease, stage IV (severe) Chronic neck pain MRI of cervical spine demonstrated [id number] cervical spondylosis C5 through C7, left foraminal narrowing and moderate right foraminal narrowing C5-C6, spinal stenosis with minimal flattening along the ventral cord C5 through C7. Claustrophobia Degenerative arthritis of left knee Diastolic dysfunction Gastroesophageal reflux disease Generalized osteoarthritis of multiple sites Hypercholesterolemia Hypertension Incontinence Iron deficiency anemia Kidney disease Morbid obesity Non-insulin dependent type 2 diabetes mellitus Obstructive sleep apnea on CPAP Psoriasis Screening for breast cancer Wears glasses Surgical History Surgical History (Updated 09/18/21 @ 20:07 by Alma Barajas PA-C) History of appendectomy History of bilateral cataract extraction History of bilateral tubal ligation History of cholecystectomy History of colonoscopy History of esophageal dilatation History of lithotripsy History of total abdominal hysterectomy and bilateral salpingo-oophorectomy due to dysfunctional uterine bleeding Status post cystoscopy with ureteral stent placement Family History Family History Grandparent Acute myocardial infarction Family history of malignant neoplasm Carcinoma of colon Mother Family history of liver disease Mother who in her late 50s of cirrhosis related to hepatitis C Father Leukemia father who in his 60s of leukemia. Sibling Heart disease Social History Social History (Updated 09/18/21 @ 20:
--- NOTE | 2021-10-08 06:50 | WPDHPUPDATE1 ---
History and Physical Update Update Date/Time: 10/08/21 06:50 History and Physical has been reviewed, including an updated exam of the patient. There are NO changes in the patient's condition. Risks, benefits, and alternatives have been discussed and questions answered. Patient agrees to proceed with procedure.
[2021-10-08] MEDS: LACTATED RINGERS 1,000 ML 30 ML IV CONT (07:10)
[2021-10-08 07:19] LABS: Glucose Point of Care 134 mg/dl (65-105)
[2021-10-08 07:40] LABS: INR 1.1; Prothrombin Time 13.7 Seconds (11.1-14.7)
[2021-10-08] MEDS: ceFAZolin 2 GM/D5W 50 ML 2 GM/50 ML BAG IVPB (08:42)
--- NOTE | 2021-10-08 09:21 | W.PM.PROC2 ---
Procedure Note - Detailed Date of Procedure 10/08/21 Pre-op Diagnosis Lt Ureteral Stone Post-op Diagnosis Same Procedure Performed Cystoscopy, left ureteroscopy with stone extraction and left ureteral stent removed Surgeon Miko Huff MD Anesthesia General Description of Procedure The patient was brought to the operative suite where she is prepped and draped in a routine sterile fashion while in the dorsal lithotomy position after the uneventful induction of a general LMA anesthetic. A 19F rigid cystoscope was placed in the bladder. The patient had no evidence of urethral stricture or bladder neck contracture. The bladder mucosa was endoscopically normal without hyperemia or neoplasm. There was a single, orthotopic ureteral orifice bilaterally. The tip of the indwelling left ureteral stent is grasped and the stent is removed with ease. A 0.035 glidewire was advanced into the [] renal pelvis under fluoroscopy. The distal ureter was dilated with an 8F/10F ureteral dilator. Ureteroscopy was undertaken with both a 7.5 F flexible ureteral scope and ashort, tapered, semi-rigid ureteroscope. there was 1 stone that measures about 3-4 mm which was with the escape disposable stone basket with ease. There were multiple tiny year little chips which were also extracted the basket. Because of the ease of this manipulation opted not to replace the stent.The patient's bladder was emptied and was taken to the recovery room having tolerated this procedure well. Estimated Blood Loss 0 Drains No Packing No Pathology None sent Complications No immediate complications Condition Stable Disposition PACU
[2021-10-08 09:33] LABS: Glucose Point of Care 101 mg/dl (65-105)
[2021-10-08] MEDS: fentaNYL CITRATE INJ (*CRX) 100 MCG/2 ML VIAL 25 MCG IV PUSH ×2 (09:40→09:45)
[2021-10-08] MEDS: oxyCODONE HCL (*CRX) 5 MG TAB IR PO (10:33)
[2021-10-08] MEDS: ONDANSETRON INJ 4 MG/2 ML VIAL IV PUSH (10:35)
== END 2021-10-08 11:17 | disposition home or self-care (01) ==
PROVIDERS: PCP Family Medicine; Visit Provider Urology
PROC: (CPT 52352; principal; 2021-10-08 08:30)
DX: N20.1 Calculus of ureter (principal); I12.9 Hypertensive chronic kidney disease with stage 1 through stage 4 chronic kidney disease, or unspecified chronic kidney disease; N18.4 Chronic kidney disease, stage 4 (severe); E11.22 Type 2 diabetes mellitus with diabetic chronic kidney disease; J45.909 Unspecified asthma, uncomplicated; E78.00 Pure hypercholesterolemia, unspecified; M54.2 Cervicalgia; G89.29 Other chronic pain; K21.9 Gastro-esophageal reflux disease without esophagitis; I11.9 Hypertensive heart disease without heart failure; D50.9 Iron deficiency anemia, unspecified; G47.33 Obstructive sleep apnea (adult) (pediatric); L40.9 Psoriasis, unspecified; E66.9 Obesity, unspecified; Z68.38 Body mass index [BMI] 38.0-38.9, adult; Z79.84 Long term (current) use of oral hypoglycemic drugs; Z79.51 Long term (current) use of inhaled steroids; Z87.891 Personal history of nicotine dependence
CPT/HCPCS: 52352; 36415; 82365; 82948; 85610; 85730; 88300; A9270; C1769; C1894; C9803; J0690; J1100; J1885; J2250; J2405; J2704; J3010; J7120; U0003; U0005

== ENCOUNTER 2021-11-29 00:58 | Observation (INO) | payer MEDICARE, MEDICAID, SELFPAY ==
[2021-11-29] VITALS (12 sets, daily range): BP systolic 138–159; BP diastolic 55–79; PULSE 93–109; RESP 10–20; TEMP 36.5–36.8; O2SAT 92–100; BMI 38.5
--- NOTE | ~2021-11-29 | XR_ITS ---
EXAMINATION: XR retrograde pyelo w/stent LT DATE: 11/30/2021 11:58 INDICATION: Left ureteral stone TECHNIQUE: 78 fluoroscopic images of the abdomen and pelvis were obtained during procedure performed by Dr. Kate. Radiologist was not present for the imaging or procedure. The amount of fluoroscopy t cindy used during this procedure was minutes. COMPARISON: None. FINDINGS: [employer] image demonstrates several surgical clips in the left hemipelvis. Additional likely cholecystec preston clips in right upper quadrant. The distal left ureteral stone is not visualized on the initial s cout radiographs can be seen is a lucent filling defect in the distal ureter near the site of mild sm ooth tapering of the internal diameter of the ureter likely related to marrow edema resulting from th e stone. Subsequently a wire advanced into the left kidney and ureteroscope into the proximal to mid left ureter. There is mild left hydronephrosis. Final images demonstrate internal ureteral stent with proximal tip in the left renal pelvis and distal loop formed in the bladder. The renal stone is agai n unable to be visualized on the final images and may have been extracted. IMPRESSION: 1. Distal left ureteral stone with mild left hydronephrosis. The stone is not visualized on the final images and may have been extracted. Correlate with procedure note. 2. Left internal ureteral stent placement in expected position. Reviewed, dictated and finalized at location A. IMPRESSION: 1. Distal left ureteral stone with mild left hydronephrosis. The stone is not v isualized on the final images and may have been extracted. Correlate with proce dure note. 2. Left internal ureteral stent placement in expected position.
--- NOTE | ~2021-11-29 | CT_ITS ---
EXAMINATION: CT abdomen pelvis wo con DATE: 11/29/2021 03:06 INDICATION: Left flank pain. Nausea and vomiting. History kidney stones. TECHNIQUE: Computed tomography (CT) of the abdomen and pelvis was performed without intravenous contr ast. Automated exposure control and iterative reconstruction technique were employed. Exam dose: 114 2.32 mGy-cm total exam DLP. COMPARISON: 09/30/[address] abdomen pelvis FINDINGS: The lungs are clear of infiltrate or consolidation. Borderline heart size. No pericardial o r pleural effusion. Small sliding hiatal hernia. Status post cholecystectomy. There are multiple calcified hepatic and splenic granulomas consistent w ith old granulomatous disease. The spleen measures 12.8 cm vertical dimension, within upper limits of normal. No bile duct or pancreatic duct dilatation. No pancreatic calcification or pancreatic mass lesion. Normal morphology of the adrenal glands. There is right renal atrophy. There is a pinpoint nonobstructing right renal calculus. There is an approximately 5.8 x 6.3 mm obstructing calculus in the mid left ureter at the S1 level, w ith moderately prominent proximal left hydroureteronephrosis and prominent left perinephric stranding . There are multiple nonobstructing mid and lower pole left renal calculi. The urinary bladder is unremarkable. Status post hysterectomy. Diverticulosis of the sigmoid colon; no CT evidence of diverticulitis. No bowel obstruction or intrap eritoneal free air. There is atherosclerotic calcification of the abdominal aorta and iliac arteries, without aneurysm. N o intraperitoneal or retroperitoneal or pelvic mass lesion or adenopathy or ascites. Diffuse idiopathic skeletal hyperostosis of the thoracic spine. Prominent degenerative change at the lower lumbar and lumbosacral apophyseal joints IMPRESSION: Obstructing 5.8 x 6.3 mm left ureteral calculus at S1 level, with moderately prominent p roximal left hydroureteronephrosis Left nephrolithiasis Right renal atrophy and single punctate nonobstructing right renal calculus Status post cholecystectomy Small sliding hiatal hernia Diverticulosis of sigmoid colon Reviewed, dictated and finalized at [facility]. Reviewed, dictated and finalized at location A. IMPRESSION: Obstructing 5.8 x 6.3 mm left ureteral calculus at S1 level, with moderately prominent proximal left hydroureteronephrosis Left nephrolithiasis Right renal atrophy and single punctate nonobstructing right renal calculus Status post cholecystectomy Small sliding hiatal hernia Diverticulosis of sigmoid colon
[2021-11-29 02:51] LABS: Basophils Absolute Auto 0.1 K/mm3 (0.0-0.1); Basophils Percent Auto 0.6 % (0.2-1.2); Eosinophils Absolute Auto 0.2 K/mm3 (0-0.3); Eosinophils Percent Auto 1.8 % (0-4.4); Hematocrit 31.2 % (37.0-47.0); Hemoglobin 9.6 g/dL (12.0-15.0); Immature Granulocyte Absolute 0.11 K/mm3 (0.00-0.031); Immature Granulocyte Percent A 0.9 % (0-0.5); Lymphocytes Absolute Auto 1.43 K/mm3 (0.9-3.2); Lymphocytes Percent Auto 11.5 % (18.3-44.2); Mean Corpuscular HGB Conc 30.8 g/dl (32-36); Mean Corpuscular Hemoglobin 27.7 pg (26-34); Mean Corpuscular Volume 90.2 fl (80-100); Mean Platelet Volume 8.5 fl (7.4-10.4); Monocytes Absolute Auto 0.9 K/mm3 (0.1-0.6); Monocytes Percent Auto 6.8 % (2.6-8.5); Neutrophils Absolute Auto 9.7 K/mm3 (1.3-6.7); Neutrophils Percent Auto 78.4 % (45.5-73.1); Platelet Count Result 187 k/mm3 (150-375); Red Blood Count 3.46 M/mm3 (4.2-5.4); Red Cell Distribution Width 14.7 % (11.5-14.5); White Blood Count 12.4 K/mm3 (4.5-10.0)
[2021-11-29 03:01] LABS: Alanine Aminotransferase 12 U/L (6-35); Albumin Level 3.8 g/dL (3.5-5.1); Alkaline Phosphatase 82 U/L (38-126); Anion Gap 9 mmol/L (8-16); Aspartate Amino Transferase 26 U/L (14-36); Bilirubin,Total 0.5 mg/dL (0.2-1.3); Blood Urea Nitrogen 22 mg/dL (7-17); Calcium 8.6 mg/dL (8.4-10.2); Carbon Dioxide 27 mmol/L (22-30); Chloride 103 mmol/L (98-107); Estimated CRCL calculation 18 ml/min; Estimated Glomerular Filt Rate 15; Glucose 151 mg/dL (65-110); Lipase 253 U/L (23-300); Potassium 3.9 mmol/L (3.4-5.0); Sodium 139 mmol/L (137-145)
[2021-11-29] MEDS: MORPHINE SULFATE (*CRX) 4 MG/ML INJ IV PUSH ×2 (03:21→06:11)
[2021-11-29] MEDS: ONDANSETRON INJ 4 MG/2 ML VIAL IV PUSH (03:21)
[2021-11-29 06:09] LABS: Appearance Urine Clear (Clear); Bilirubin Urine Negative (Negative); Blood Urine Negative (Negative); Color Urine Yellow (Yellow); Glucose Urine UA Negative (Negative); Ketones Urine Negative (Negative); Leukocyte Esterase Ur Negative LEU/UL (Negative); Nitrate Urine Negative (Negative); Protein Urine 1+ mg/dL (Negative); Urobilinogen Urine 0.2 mg/dL (<2.0); pH Urine 7.5 (5.0-9.0)
--- NOTE | 2021-11-29 06:22 | ED.BACK ---
HPI - Back Pain/Injury General Chief Complaint: Back Pain/Injury Stated Complaint: back pain, N/V, kidney stone? Time Seen by Provider: 11/29/21 02:40 History of Present Illness HPI Narrative: 71-year-old female presenting with left-sided flank pain, she does have a history of kidney stones and this feels similar to that, she is also having some nausea and discomfort, no burning on urination. No fevers or chills. Related Data Home Medications Medication Instructions Recorded Confirmed albuterol sulfate [ProAir HFA] 1 inh INHALATION QID PRN 05/17/19 11/24/21 Myrbetriq 25 mg PO PRN PRN 10/10/20 11/24/21 Slofed 60 60 mg PO DAILY 12/30/20 11/24/21 vitamin Q90-qlnnyck B1 100 mg-1 1 ml IM MONTHLY 05/01/21 11/24/21 mg/mL intramuscular solution cholecalciferol (vitamin D3) 1,250 1,250 mcg PO WEEKLY 07/02/21 11/24/21 mcg (50,000 unit) capsule ascorbic acid (vitamin C) 500 mg PO DAILY 10/01/21 11/24/21 topiramate 25 mg PO DAILY 10/01/21 11/24/21 allopurinol 300 mg PO DAILY 10/27/21 11/24/21 Allergies Allergy/AdvReac Type Severity Reaction Status Date / Time tramadol Allergy Severe Hives Verified 11/24/21 11:35 atorvastatin AdvReac Severe Nausea and Verified 11/24/21 11:35 Vomiting pravastatin AdvReac Intermediate Nausea and Verified 11/24/21 11:35 Vomiting budesonide AdvReac Mild Muscle Verified 11/24/21 11:35 Spasms formoterol AdvReac Mild Muscle Verified 11/24/21 11:35 Spasms Review of Systems Review of Systems: CONST: No fever. HEENT: No sore throat C/V: No chest pain RESP: No cough GI: Reports flank pain, nausea, vomiting : No dysuria. M/S: No joint pain. SKIN: No rash. NEURO: No headache or focal numbness or weakness PSYCH: No depression PMFSH Past Medical History Medical History Anemia Asthma Chronic kidney disease, stage IV (severe) Chronic neck pain MRI of cervical spine demonstrated [id number] cervical spondylosis C5 through C7, left foraminal narrowing and moderate right foraminal narrowing C5-C6, spinal stenosis with minimal flattening along the ventral cord C5 through C7. Claustrophobia Degenerative arthritis of left knee Diastolic dysfunction Gastroesophageal reflux disease Generalized osteoarthritis of multiple sites Hypercholesterolemia Hypertension Incontinence Iron deficiency anemia Kidney disease Morbid obesity Non-insulin dependent type 2 diabetes mellitus Obstructive sleep apnea on CPAP Psoriasis Screening for breast cancer Wears glasses Surgical History Surgical History History of appendectomy History of bilateral cataract extraction History of bilateral tubal ligation History of cholecystectomy History of colonoscopy History of esophageal dilatation History of lithotripsy History of total abdominal hysterectomy and bilateral salpingo-oophorectomy due to dysfunctional uterine bleeding Status post cystoscopy with ureteral stent placement Family History Family History Grandparent Acute myocardial infarction Family history of malignant neoplasm Carcinoma of colon Mother Family history of liver disease Mother who in her late 50s of cirrhosis related to hepatitis C Father Leukemia father who in his 60s of leukemia. Sibling Heart disease Social History Social History Social History: She lives with a roommate in [place]. 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 She then went on disability when she had a nervous breakdown. She has 3 children who are all healthy. She is a former smoker and smoked at least 2 packs of cigarettes per day from the age of 17 to age 57. She rarely drinks alcohol and only in moderation. Surrogate decision maker: Aarti Gupta (daughter). Code status: Full code. Smok
[2021-11-29 06:30] LABS: Bacteria Urine Trace /hpf; Mucus Urine Rare /lpf; RBC Urine 0-2 /hpf (0-2); WBC Urine 0-3 /hpf
[2021-11-29 06:38] LABS: Add Urine Microscopic? YES
--- NOTE | 2021-11-29 07:24 | WPDURCON ---
Assessment and Plan Assessment and plan (1) Left ureteral stone: Code(s): N20.1 - Calculus of ureter Status: Acute Assessment and Plan: Should be taken the operating room for intervention. She will undergo cystoscopy with left ureteroscopy if I can extract the stone I will otherwise I will place a stent with delayed stone intervention. She understands risks of bleeding, infection, damage to the urinary tract, inability to remove the stone. She agrees to proceed. She does understand she will very likely have a stent in place afterwards. She is going to visit family in [place] next week. I informed her that there was no travel restrictions with ureteral stent (2) Hydronephrosis, left: Code(s): N13.30 - Unspecified hydronephrosis Status: Acute (3) Left renal stone: Code(s): N20.0 - Calculus of kidney Status: Acute (4) Acute kidney injury: Code(s): N17.9 - Acute kidney failure, unspecified Status: Acute Urology Consult Note HPI Date Seen: 11/29/21 Primary Care Provider: Wiley Causey MD Consult Narrative Narrative: Edith Mayo is a 71 year old female seen at request the emergency room for left ureteral stone. She is a patient known to our practice. She sees my partner Dr. Huff. She has had multiple stones in the past. Her last intervention was in September where she underwent a left ureteroscopy with stone extraction. She returned to the emergency room this morning with acute onset of left flank pain that began at 4:00 a.m.. There is associated nausea. There is no fevers, chills, symptoms of urinary tract infection. She had no blood in the urine or dysuria. CT scan was done which shows a 6 mm mid left ureteral stone. There was hydronephrosis proximal to the stone. There was also stones in the kidneys. She would like intervention for the stone due to pain. She also has an elevated creatinine of 3 this is above her baseline of 2.1. She will undergo intervention today in the form of ureteroscopy. I will attempt to extract the stone. Otherwise I would only place a stent. Review of Systems Review of Systems: All systems reviewed & are unremarkable except as noted in HPI and below PMFSH Past Medical History Medical History Anemia Asthma Chronic kidney disease, stage IV (severe) Chronic neck pain MRI of cervical spine demonstrated [id number] cervical spondylosis C5 through C7, left foraminal narrowing and moderate right foraminal narrowing C5-C6, spinal stenosis with minimal flattening along the ventral cord C5 through C7. Claustrophobia Degenerative arthritis of left knee Diastolic dysfunction Gastroesophageal reflux disease Generalized osteoarthritis of multiple sites Hypercholesterolemia Hypertension Incontinence Iron deficiency anemia Kidney disease Morbid obesity Non-insulin dependent type 2 diabetes mellitus Obstructive sleep apnea on CPAP Psoriasis Screening for breast cancer Wears glasses Surgical History Surgical History History of appendectomy History of bilateral cataract extraction History of bilateral tubal ligation History of cholecystectomy History of colonoscopy History of esophageal dilatation History of lithotripsy History of total abdominal hysterectomy and bilateral salpingo-oophorectomy due to dysfunctional uterine bleeding Status post cystoscopy with ureteral stent placement Family History Family History Grandparent Acute myocardial infarction Family history of malignant neoplasm Carcinoma of colon Mother Family history of liver disease Mother who in her late 50s of cirrhosis related to hepatitis C Father Leukemia father who in his 60s of leukemia. Sibling Heart disease Social History Social History (Reviewed 11/29/21 @ 07:2
--- NOTE | 2021-11-29 07:30 | WPDHPUPDATE1 ---
History and Physical Update Update Date/Time: 11/29/21 07:30 History and Physical has been reviewed, including an updated exam of the patient. There are NO changes in the patient's condition. Risks, benefits, and alternatives have been discussed and questions answered. Patient agrees to proceed with procedure.
[2021-11-29] MEDS: CIPROFLOXACIN 400 MG/D5W 200ML 200 ML 200 MG IVPB (07:36)
--- NOTE | 2021-11-29 09:03 | WPDANESEPPF ---
Anes - Initial Pre Proc Eval Procedure: Operation Date: 11/29/21 09:30 Proposed Procedures p Cysto, RPG, Stone Ext, Stent Placement(Left) - Matthew Kate MD Date/Time: 11/29/21 09:03 Pre Op Diagnosis: back pain, N/V, kidney stone? Patient Data Age: 71 Gender: F Height: 1.57 m Weight: 95.4 kg Last Vital Signs Temp 36.8 C 11/29/21 01:24 Pulse 101 H 11/29/21 08:58 Resp 18 11/29/21 08:58 BP 142/67 H 11/29/21 08:58 Pulse Ox 93 11/29/21 08:58 Allergies Allergy/AdvReac Type Severity Reaction Status Date / Time tramadol Allergy Severe Hives Verified 11/24/21 11:35 atorvastatin AdvReac Severe Nausea and Verified 11/24/21 11:35 Vomiting pravastatin AdvReac Intermediate Nausea and Verified 11/24/21 11:35 Vomiting budesonide AdvReac Mild Muscle Verified 11/24/21 11:35 Spasms formoterol AdvReac Mild Muscle Verified 11/24/21 11:35 Spasms Home Medications Medication Instructions Recorded Confirmed Type albuterol sulfate [ProAir HFA] 1 inh INHALATION QID PRN 05/17/19 11/24/21 History Myrbetriq 25 mg PO PRN PRN 10/10/20 11/24/21 History blood sugar diagnostic #100 each 12/10/20 11/24/21 Rx Slofed 60 60 mg PO DAILY 12/30/20 11/24/21 History vitamin M03-opjaxan B1 100 mg-1 1 ml IM MONTHLY 05/01/21 11/24/21 History mg/mL intramuscular solution glimepiride 1 mg tablet 1 mg PO DAILY #90 tablet 06/15/21 11/24/21 Rx lancets #100 ea 06/23/21 11/24/21 Rx cholecalciferol (vitamin D3) 1,250 1,250 mcg PO WEEKLY 07/02/21 11/24/21 History mcg (50,000 unit) capsule omeprazole 40 mg capsule,delayed 40 mg PO DAILY #30 cap 07/29/21 11/24/21 Rx release semaglutide 1 mg/dose (4 mg/3 mL) 1 mg SUBCUT WEEKLY 90 Days #9.75 ml 08/04/21 11/24/21 Rx subcutaneous pen injector ascorbic acid (vitamin C) 500 mg PO DAILY 10/01/21 11/24/21 History topiramate 25 mg PO DAILY 10/01/21 11/24/21 History cephalexin 500 mg PO Q8H #9 cap 10/08/21 11/24/21 Rx hydrocodone-acetaminophen 1 - 2 tablet PO Q6H PRN #20 tablet 10/08/21 11/24/21 Rx amlodipine 5 mg tablet 5 mg PO DAILY #90 tablet 10/14/21 11/24/21 Rx prednisone 1 mg tablet 4 mg PO DAILY #120 tablet 10/16/21 11/24/21 Rx allopurinol 300 mg PO DAILY 10/27/21 11/24/21 History Laboratory Tests 11/29/21 11/29/21 11/29/21 02:43 02:43 06:01 WBC 12.4 K/mm3 H K/mm3 (4.5-10.0) RBC 3.46 M/mm3 L M/mm3 (4.2-5.4) Hgb 9.6 g/dL L g/dL (12.0-15.0) Hct 31.2 % L % (37.0-47.0) MCV 90.2 fl fl (80-100) MCH 27.7 pg pg (26-34) MCHC 30.8 g/dl L g/dl (32-36) RDW 14.7 % H % (11.5-14.5) Plt Count 187 k/mm3 k/mm3 (150-375) MPV 8.5 fl fl (7.4-10.4) Immature Gran % (Auto) 0.9 % H % (0-0.5) Neut % (Auto) 78.4 % H % (45.5-73.1) Lymph % (Auto) 11.5 % L % (18.3-44.2) [place] % (Auto) 6.8 % % (2.6-8.5) Eos % (Auto) 1.8 % % (0-4.4) Baso % (Auto) 0.6 % % (0.2-1.2) Lymph # (Auto) 1.43 K/mm3 K/mm3 (0.9-3.2) [place] # (Auto) 0.9 K/mm3 H K/mm3 (0.1-0.6) Eos # (Auto) 0.2 K/mm3 K/mm3 (0-0.3) Baso # (Auto) 0.1 K/mm3 K/mm3 (0.0-0.1) Abs Immat Gran (auto) 0.11 K/mm3 H K/mm3 (0.00-0.031) Absolute Neuts (auto) 9.7 K/mm3 H K/mm3 (1.3-6.7) Absolute Nucleated RBC 0.0 K/mm3 K/mm3 (0.0-0.012) Nucleated RBC % 0.0 % % (0.0-0.2) Sodium 139 mmol/L mmol/L (137-145) Potassium 3.9 mmol/L mmol/L (3.4-5.0) Chloride 103 mmol/L mmol/L (98-107) Carbon Dioxide 27 mmol/L mmol/L (22-30) Anion Gap 9 mmol/L mmol/L (8-16) BUN 22 mg/dL H mg/dL (7-17) Creatinine 3.00 mg/dL H mg/dL (0.7-1.0) Estim Creat Clear Calc 18 ml/min ml/min Estimated GFR 15 L (59 - ) Glucose 151 mg/dL H mg/dL (65-110) Calcium 8.6 mg/dL mg/dL (8
[2021-11-29] MEDS: LACTATED RINGERS 1,000 ML 30 ML IV CONT (09:10)
[2021-11-29 09:37] LABS: SARS-CoV-2 RNA PCR Negative
[2021-11-29] MEDS: LIDOCAINE HCL 2% GEL UROJET 10 ML PKG MUCOUS MEM (09:40)
--- NOTE | 2021-11-29 09:47 | P.OP_ITS ---
Procedure Note - Detailed Date of Procedure 11/29/21 Pre-op Diagnosis Left ureteral stone Post-op Diagnosis Same Procedure Performed Cystoscopy, left retrograde pyelogram, left ureteroscopy, holmium laser lithotripsy, stone extraction, stent placed Surgeon Matthew Kate MD Anesthesia General Indications This along the recurrent stones. She came to the the left ureteral stone. She is here for intervention Findings Left ureteral stone. I extracted Description of Procedure She was correctly identified. Informed consent obtained. She from the operating room. She was given general anesthesia. She was prepped and draped in sterile fashion. She was given appropriate perioperative antibiotics in the ER. Time-out performed. Cystoscopy revealed or appearing bladder. There is no tumors or stones in the bladder. I did retrograde pyelogram on the left. She had a delicate distal ureter. A filling defect was seen in the mid ureter with proximal hydronephrosis. I placed a guidewire to the kidney. I dilated the ureter the 810 dilator. I performed rigid ureteroscopy. The stone was encountered. It was basketed but unable to be extracted intact. I used the holmium laser at the settings of joules of 1 and a rate of 5 to fragment the stone. I extracted all fragments. I re-examined the ureter there is no sign of any ureteral injury or persistent stone fragments. I placed a 4.8 variable le ngth stent. Proximal coil in the kidney. Distal coil in the bladder. The bladder was drained. Uro jet was applied. She was awakened and transferred to PACU in stable condition. Implants Variable length stent Estimated Blood Loss 1 Urine Output 150 Drains Yes (Variable length stent 4.8) Packing No Pathology Yes (Stone) Complications No immediate complications Condition Stable Disposition PACU
--- NOTE | 2021-11-29 11:06 | ADMGEN ---
This patient, Edith Mayo, was admitted to [facility] Surg Room 323-01 at 1100. Patient/family oriented to hospital policies and general routines including ID bracelet, bed and alarms, visiting hours, pain management, procedures, bathroom and other care routines, personal items, smoking policy, room service/diet, and visiting hours. Information on how to activate the Rapid Response Team has been discussed. Patient/Family are encouraged to report perceived risks to care and to ask questions if they do not understand what they are told or what they should do.
[2021-11-29 11:52] LABS: Glucose Point of Care 193 mg/dl (65-105)
[2021-11-29] MEDS: OXYBUTYNIN CHLORIDE 5 MG TABLET PO (12:18)
--- NOTE | 2021-11-29 15:07 | PM.IMHP ---
H&P: HPI History of Present Illness Date/Time: 11/29/21 15:07 Review of Systems Review of Systems: All systems reviewed & are unremarkable except as noted in HPI and below PMFSH Past Medical History Medical History Anemia Asthma Chronic kidney disease, stage IV (severe) Chronic neck pain MRI of cervical spine demonstrated [id number] cervical spondylosis C5 through C7, left foraminal narrowing and moderate right foraminal narrowing C5-C6, spinal stenosis with minimal flattening along the ventral cord C5 through C7. Claustrophobia Degenerative arthritis of left knee Diastolic dysfunction Gastroesophageal reflux disease Generalized osteoarthritis of multiple sites Hypercholesterolemia Hypertension Incontinence Iron deficiency anemia Kidney disease Morbid obesity Non-insulin dependent type 2 diabetes mellitus Obstructive sleep apnea on CPAP Psoriasis Screening for breast cancer Wears glasses Surgical History Surgical History History of appendectomy History of bilateral cataract extraction History of bilateral tubal ligation History of cholecystectomy History of colonoscopy History of esophageal dilatation History of lithotripsy History of total abdominal hysterectomy and bilateral salpingo-oophorectomy due to dysfunctional uterine bleeding Status post cystoscopy with ureteral stent placement Family History Family History Grandparent Acute myocardial infarction Family history of malignant neoplasm Carcinoma of colon Mother Family history of liver disease Mother who in her late 50s of cirrhosis related to hepatitis C Father Leukemia father who in his 60s of leukemia. Sibling Heart disease Social History Social History Social History: She lives with a roommate in [place]. 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 She then went on disability when she had a nervous breakdown. She has 3 children who are all healthy. She is a former smoker and smoked at least 2 packs of cigarettes per day from the age of 17 to age 57. She rarely drinks alcohol and only in moderation. Surrogate decision maker: Aarti Gupta (daughter). Code status: Full code. Smoking packs per day: 2.5 Smoking cigarettes per day: 50.0 Years smoked: 50 Smoking pack-years: 125.00 Smoking status: Former smoker Alcohol intake: never Substance use: never Spiritual care concerns: No Meds Home Medications and Allergies Home Medications Medication Instructions Recorded Confirmed Type albuterol sulfate [ProAir HFA] 1 inh INHALATION QID PRN 05/17/19 11/29/21 History Myrbetriq 25 mg PO PRN PRN 10/10/20 11/29/21 History blood sugar diagnostic #100 each 12/10/20 11/29/21 Rx Slofed 60 60 mg PO DAILY 12/30/20 11/29/21 History vitamin S74-[id number] B1 100 mg-1 1 ml IM MONTHLY 05/01/21 11/29/21 History mg/mL intramuscular solution glimepiride 1 mg tablet 1 mg PO DAILY #90 tablet 06/15/21 11/29/21 Rx lancets #100 ea 06/23/21 11/29/21 Rx cholecalciferol (vitamin D3) 1,250 1,250 mcg PO WEEKLY 07/02/21 11/29/21 History mcg (50,000 unit) capsule omeprazole 40 mg capsule,delayed 40 mg PO DAILY #30 cap 07/29/21 11/29/21 Rx release semaglutide 1 mg/dose (4 mg/3 mL) 1 mg SUBCUT WEEKLY 90 Days #9.75 ml 08/04/21 11/29/21 Rx subcutaneous pen injector ascorbic acid (vitamin C) 500 mg PO DAILY 10/01/21 11/29/21 History amlodipine 5 mg tablet 5 mg PO DAILY #90 tablet 10/14/21 11/29/21 Rx allopurinol 300 mg PO DAILY 10/27/21 11/29/21 History hydrocodone-acetaminophen 1 tablet PO Q6H PRN 11/29/21 11/29/21 History Allergies Allergy/AdvReac Type Severity Reaction Status Date / Time tramadol Allergy Severe Hives Verified 11/24/21 11:35 atorvastatin AdvReac Severe Nausea and V
--- NOTE | 2021-11-29 15:37 | PM.IMHP ---
H&P: HPI History of Present Illness Date/Time: 11/29/21 15:37 Chief Complaint: This 71-year-old female with a history of prior kidney stones type 2 diabetes hypertension and stage 4 chronic kidney disease was in her usual state of health with adequately controlled blood sugars November in the afternoon. She began to experience discomfort in the left lower back to flank region radiating around to the pelvis. This was similar prior kidney stone pain. She had no fevers chills or dysuria or your tender voiding symptoms. Because the pain did not resolve with hydrocodone she called her daughter who brought her to the emergency room at about 11:00 p.m. last night. Since placement of the left ureteral stent on the morning of November 29 her pain has resolved. She is tolerating her diet and up and about in her room independently and wishes to go home. Review of Systems Review of Systems: All systems reviewed & are unremarkable except as noted in HPI and below PMFSH Past Medical History Medical History Anemia Asthma Chronic kidney disease, stage IV (severe) Chronic neck pain MRI of cervical spine demonstrated [id number] cervical spondylosis C5 through C7, left foraminal narrowing and moderate right foraminal narrowing C5-C6, spinal stenosis with minimal flattening along the ventral cord C5 through C7. Claustrophobia Degenerative arthritis of left knee Diastolic dysfunction Gastroesophageal reflux disease Generalized osteoarthritis of multiple sites Hypercholesterolemia Hypertension Incontinence Iron deficiency anemia Kidney disease Morbid obesity Non-insulin dependent type 2 diabetes mellitus Obstructive sleep apnea on CPAP Psoriasis Screening for breast cancer Wears glasses Surgical History Surgical History History of appendectomy History of bilateral cataract extraction History of bilateral tubal ligation History of cholecystectomy History of colonoscopy History of esophageal dilatation History of lithotripsy History of total abdominal hysterectomy and bilateral salpingo-oophorectomy due to dysfunctional uterine bleeding Status post cystoscopy with ureteral stent placement Family History Family History Grandparent Acute myocardial infarction Family history of malignant neoplasm Carcinoma of colon Mother Family history of liver disease Mother who in her late 50s of cirrhosis related to hepatitis C Father Leukemia father who in his 60s of leukemia. Sibling Heart disease Social History Social History Social History: She lives with a roommate in [place]. 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 She then went on disability when she had a nervous breakdown. She has 3 children who are all healthy. She is a former smoker and smoked at least 2 packs of cigarettes per day from the age of 17 to age 57. She rarely drinks alcohol and only in moderation. Surrogate decision maker: Aarti Gupta (daughter). Code status: Full code. Smoking packs per day: 2.5 Smoking cigarettes per day: 50.0 Years smoked: 50 Smoking pack-years: 125.00 Smoking status: Former smoker Alcohol intake: never Substance use: never Spiritual care concerns: No Meds Home Medications and Allergies Home Medications Medication Instructions Recorded Confirmed Type albuterol sulfate [ProAir HFA] 1 inh INHALATION QID PRN 05/17/19 11/29/21 History Myrbetriq 25 mg PO PRN PRN 10/10/20 11/29/21 History blood sugar diagnostic #100 each 12/10/20 11/29/21 Rx Slofed 60 60 mg PO DAILY 12/30/20 11/29/21 History vitamin O08-usjebfb B1 100 mg-1 1 ml IM MONTHLY 05/01/21 11/29/21 History mg/mL intramuscular solution glimepiride 1 mg tablet 1 mg PO DAILY #90 tablet 06/15/21 11/29/21 Rx lancets #100
--- NOTE | 2021-11-29 15:51 | PM.DS ---
DS: Admitting Diagnosis Discharge Date 11/29/2021 Admitting Diagnosis left ureteral stone DS: Discharge Diagnosis Discharge Diagnosis (1) Left ureteral stone: Code(s): N20.1 - Calculus of ureter Status: Acute Assessment and Plan: symptoms resolved since sten placed D/w patient and daughter at bedside and Dr. Kate by phone. He agrees with their wishes to discharge. (2) Deyul-zp-ddkdzxd kidney injury: Qualifiers: Acute renal failure type: unspecified Chronic kidney disease stage: stage 4 (severe) Qualified Code(s): N17.9 - Acute kidney failure, unspecified; N18.4 - Chronic kidney disease, stage 4 (severe) Code(s): N17.9 - Acute kidney failure, unspecified; N18.9 - Chronic kidney disease, unspecified Status: Acute Assessment and Plan: likely due to stone will dianne outpatient f/u (3) Chronic kidney disease, stage IV (severe): Code(s): N18.4 - Chronic kidney disease, stage 4 (severe) Status: Chronic Assessment and Plan: creatinine 3.0 (4) Diastolic dysfunction: Code(s): I51.89 - Other ill-defined heart diseases Status: Acute Assessment and Plan: Clincically stable (5) Chronic anemia: Code(s): D64.9 - Anemia, unspecified Status: Acute Assessment and Plan: Hgb 9.6 (6) Obstructive sleep apnea on CPAP: Code(s): G47.33 - Obstructive sleep apnea (adult) (pediatric); Z99.89 - Dependence on other enabling machines and devices Status: Acute Assessment and Plan: Continue use (7) Non-insulin dependent type 2 diabetes mellitus: Code(s): E11.9 - Type 2 diabetes mellitus without complications Status: Acute Assessment and Plan: Continue home regimen DS: Summary Hospital Course Reason for hospitalization: Left ureteral stone Hospital Course: patient presented with flank pain and left ureteral stone. She was taken to the operating room where a left ureteral stent was placed. Pain resolved. She wished to go home. She was alert and ambulatory and tolerating her diet. Status at Discharge Functional status at discharge: independent ambulation Overall status at discharge: patient is progressing back to baseline Time Spent with Patient Time attestation: Total time spent providing and/or coordinating discharge services: Time spent: Greater than 30 minutes Exam Narrative: HEENT: PERRL, sclerae nonicteric, pharyngeal mucosa pink and intact NECK: No JVD, adenopathy, or thyromegaly CHEST: Clear to auscultation. Normal effort. HEART: NL S1/S2, regular, no murmur ABDOMEN: BS+, soft, nontender, no mass, no bruits EXTREMITIES: No cyanosis, edema, or clubbing NEUROLOGIC: CN intact and symmetric to inspection. MUSCULOSKELETAL: Tone and strength symmetric. PSYCH: Alert. Oriented to person, place, and time. DS: Data Data Completed and Pending Pending studies at discharge: Pending at discharge 11/29/21 09:43 Surgical [PTH] Routine Labs on day of discharge: Labs from last 24 hours 11/29/21 11/29/21 11/29/21 11:48 08:54 06:01 WBC RBC Hgb Hct MCV MCH MCHC RDW Plt Count MPV Immature Gran % (Auto) Neut % (Auto) Lymph % (Auto) Dare % (Auto) Eos % (Auto) Baso % (Auto) Lymph # (Auto) Dare # (Auto) Eos # (Auto) Baso # (Auto) Abs Immat Gran (auto) Absolute Neuts (auto) Absolute Nucleated RBC Nucleated RBC % Sodium Potassium Chloride Carbon Dioxide Anion Gap BUN Creatinine Estim Creat Clear Calc Estimated GFR Glucose POC Capillary Glucose 193 H Calcium Total Bilirubin AST ALT Alkaline Phosphatase Total Protein Albumin Lipase Urine Color Yellow Urine Appearance Clear Urine pH 7.5 Ur Specific [place] 1.020 Urine Protein 1+ H Urine Glucose (UA) Negative Urine Ketones Negative Ur Blood (Man) Negative Uri
== END 2021-11-29 16:25 | disposition home or self-care (01) ==
LOC: ANHED 09:08 → ANH3MEDSUR 09:10
PROVIDERS: Urology; Admitting Provider Student in an Organized Health Care Education/Training Program; Emergency Provider Emergency Medicine; PCP Family Medicine; Visit Provider Internal Medicine
PROC: (CPT 52352; principal; 2021-11-29 09:30)
DX: N20.2 Calculus of kidney with calculus of ureter (principal); N13.30 Unspecified hydronephrosis; N17.9 Acute kidney failure, unspecified; N18.4 Chronic kidney disease, stage 4 (severe); E78.00 Pure hypercholesterolemia, unspecified; I12.9 Hypertensive chronic kidney disease with stage 1 through stage 4 chronic kidney disease, or unspecified chronic kidney disease; E11.22 Type 2 diabetes mellitus with diabetic chronic kidney disease; G47.33 Obstructive sleep apnea (adult) (pediatric); Z87.891 Personal history of nicotine dependence; D64.9 Anemia, unspecified; I51.89 Other ill-defined heart diseases; Z20.822 Contact with and (suspected) exposure to COVID-19
CPT/HCPCS: 52356; 36415; 51701; 74176; 74420; 80053; 81001; 82365; 82948; 83690; 85025; 88300; 96361; 96365; 96375; 96376; 99285; A9270; C1769; C9803; G0378; J0744; J1100; J2250; J2270; J2405; J2704; J3010; J7120; Q9966; U0003; U0005

== ENCOUNTER 2021-12-18 13:49 | Outpatient (CLI) | payer MEDICARE, MEDICAID, SELFPAY ==
--- NOTE | ~2021-12-18 | XR_ITS ---
XR abdomen/kub 1V 12/18/2021 14:09 Indication: Renal stone follow-up Procedure: KUB Comparison: Comparison to multiple prior studies sequentially, with oldest reviewed study dated 05/19. Findings: There is a left internal ureteral stent in expected position. No definite renal/ureteral st ones are identified. There are surgical changes in the left pelvis and right upper abdomen. There are calcified granulomas of the spleen. There is lumbar spondylosis. No acute osseous abnormality. Impression: 1: No renal/ureteral stones identified. Reviewed, dictated and finalized at location A. Impression: 1: No renal/ureteral stones identified.
== END 2021-12-18 13:50 | disposition home or self-care (01) ==
PROVIDERS: PCP Family Medicine; Visit Provider Urology
DX: N20.0 Calculus of kidney (principal)
CPT/HCPCS: 74018

== ENCOUNTER 2021-12-19 18:34 | Inpatient (IN) | payer MEDICARE, MEDICAID, SELFPAY ==
[2021-12-19] VITALS (12 sets, daily range): BP systolic 130–174; BP diastolic 55–71; PULSE 102–126; RESP 12–24; TEMP 36.2–38.8; O2SAT 88–99; BMI 39.4
--- NOTE | ~2021-12-19 | XR_ITS ---
EXAMINATION: XR chest 1V portable DATE: 12/21/2021 08:25 INDICATION: Hypoxia. TECHNIQUE: A single frontal view of the chest was obtained. COMPARISON: Chest single view 09/18/2021, CT abdomen and pelvis 12/19/2021 FINDINGS: There is mild atelectasis in the mid and lower lung zones. No pleural effusion or pneumotho rax. The heart size is normal. IMPRESSION: 1. Mild atelectasis in the mid and lower lung zones. Reviewed, dictated and finalized at location A.
--- NOTE | ~2021-12-19 | XR_ITS ---
EXAM: XR abdomen/kub 1V DATE: 12/19/2021 20:13 HISTORY: left flank pain, HX STONES, STENT REMOVED YESTERDAY . COMPARISON: CT abdomen pelvis, same date. FINDINGS: Clear lung bases. Normal bowel gas pattern. No organomegaly. Known renal and left ureteral calcifications are poorly visualized radiographically. Regional bones and soft tissues normal for ag e. IMPRESSION: CT proven renal and ureteral calcifications are not visualized. Reviewed, dictated and finalized at location K.
--- NOTE | ~2021-12-19 | CT_ITS ---
EXAMINATION: CT abdomen pelvis wo con DATE: 12/19/2021 20:06 INDICATION: left flank pain, kidney stones TECHNIQUE: Computed tomography (CT) of the abdomen and pelvis was performed without intravenous contr ast. Automated exposure control and iterative reconstruction technique were employed. The dose-length product was 1034.55 mGy-cm. COMPARISON: 11/29/2021. FINDINGS: Lower thorax: Left basilar atelectasis. Mild coronary artery calcifications. Liver: Granulomas calcifications. Biliary/Gallbladder: Gallbladder is absent. No bile duct dilation. Pancreas: No mass or duct dilation. Spleen: Normal. Adrenals:No mass. Kidneys: Moderate left hydronephrosis and perinephric stranding. Multiple stones are present in the mid and distal left ureter. Residual 2 mm midpole and 4 mm lower p ole calcifications. Right renal atrophy. GI tract: No small or large bowel dilation. Appendix not visualized. Diverticulosis without diverticu litis. Mesentery/Peritoneum: No ascites, mass, or free air. Retroperitoneum: No mass. Pelvis: Pelvic organs are within normal limits. Soft Tissues: Soft tissues and body wall unremarkable. Bones: No acute osseous finding. IMPRESSION: Multiple left ureteral stones with persistent moderate left obstructive uropathy. Reviewed, dictated and finalized at location K. IMPRESSION: Multiple left ureteral stones with persistent moderate left obstructive uropath y.
--- NOTE | ~2021-12-19 | XR_ITS ---
EXAMINATION: XR stent kub - surgery DATE: 12/22/2021 15:02 INDICATION: Left ureteral stent placement TECHNIQUE: Fluoroscopic images from a left stent placement are submitted for review. 22 seconds of fl uoroscopy time. One fluoroscopic image FINDINGS: There is a left double-J internal ureteral stent projecting in expected position, with proximal [place] loop at the level of the renal pelvis and distal loop not visualized. IMPRESSION: 1. Left internal ureteral stent placement. Please refer to real-time procedural findings for detail s. Reviewed, dictated and finalized at location B. IMPRESSION: 1. Left internal ureteral stent placement. Please refer to real-time procedur al findings for details.
--- NOTE | ~2021-12-19 | XR_ITS ---
EXAMINATION: XR retrograde pyelo w/stent LT DATE: 12/20/2021 11:00 CDT INDICATION: LEFT SIDE SPECIAL, RETRO/STENT PLACEMENT . TECHNIQUE: Seven fluoroscopic images of the left abdomen were obtained during retrograde pyelography and stent placement. I was not present during the procedure. Fluoroscopy exposure time was 41.7 secon ds. Cumulative dose 0.81482 mGy2. COMPARISON: None FINDINGS: Left renal and ureteral calcifications seen on the prior CT are not seen fluoroscopically. Multiple i mages demonstrate cannulation of the left ureter and placement of a left ureteral stent. IMPRESSION: Fluoroscopic documentation of left retrograde pyelography and stent placement. Reviewed, dictated and finalized at location K.
[2021-12-19 18:52] LABS: Basophils Absolute Auto 0.1 K/mm3 (0.0-0.1); Basophils Percent Auto 0.4 % (0.2-1.2); Eosinophils Absolute Auto 0.3 K/mm3 (0-0.3); Eosinophils Percent Auto 1.6 % (0-4.4); Hemoglobin 10.4 g/dL (12.0-15.0); Immature Granulocyte Absolute 0.12 K/mm3 (0.00-0.031); Immature Granulocyte Percent A 0.6 % (0-0.5); Lymphocytes Absolute Auto 1.15 K/mm3 (0.9-3.2); Mean Corpuscular HGB Conc 31.5 g/dl (32-36); Mean Corpuscular Hemoglobin 28.1 pg (26-34); Mean Corpuscular Volume 89.2 fl (80-100); Mean Platelet Volume 8.9 fl (7.4-10.4); Monocytes Absolute Auto 1.1 K/mm3 (0.1-0.6); Monocytes Percent Auto 5.6 % (2.6-8.5); Neutrophils Absolute Auto 16.6 K/mm3 (1.3-6.7); Neutrophils Percent Auto 85.8 % (45.5-73.1); Platelet Count Result 216 k/mm3 (150-375); Red Cell Distribution Width 14.9 % (11.5-14.5); White Blood Count 19.3 K/mm3 (4.5-10.0)
--- NOTE | 2021-12-19 19:00 | ECG_ITS ---
Measurements Intervals [place] Rate: 114 P: 38 [place]: 164 QRS: 1 QRSD: 84 T: 29 QT: 292 QTc: 403 Interpretive Statements SINUS TACHYCARDIA POOR R-WAVE PROGRESSION COMPARED TO THE PRIOR TRACING, THE R-WAVE PROGRESSION IS WORSENED ON THE PATIENT IS NOW TACHYCARDIC Electronically Signed On 12-20-2021 8:54:53 CDT by Tisha Copeland M.D.
[2021-12-19 19:02] LABS: Alanine Aminotransferase 14 U/L (6-35); Albumin Level 4.1 g/dL (3.5-5.1); Alkaline Phosphatase 92 U/L (38-126); Anion Gap 9 mmol/L (8-16); Aspartate Amino Transferase 22 U/L (14-36); Bilirubin,Total 0.6 mg/dL (0.2-1.3); Blood Urea Nitrogen 21 mg/dL (7-17); Calcium 8.4 mg/dL (8.4-10.2); Carbon Dioxide 23 mmol/L (22-30); Chloride 104 mmol/L (98-107); Estimated CRCL calculation 15 ml/min; Estimated Glomerular Filt Rate 13; Glucose 163 mg/dL (65-110); Potassium 3.7 mmol/L (3.4-5.0); Sodium 136 mmol/L (137-145)
--- NOTE | 2021-12-19 19:46 | ED.FEVER ---
HPI - Fever General Chief Complaint: Fever Stated Complaint: stent removed yesterday Time Seen by Provider: 12/19/21 18:56 Source: patient Mode of arrival: ambulatory Limitations: no limitations History of Present Illness HPI Narrative: This is a 71 year old female who presents for evaluation of left flank pain and fever. Patient was diagnosed with kidney stone with acute kidney injury 1 month ago. She had to have lithotripsy with ureteral stent placement. She had her left ureteral stent removed yesterday in Dr. Huff' office. She denies severe left flank pain that radiates around to her left lower abdomen last night at 9 pm. Her pain has been constant and worsening. She has been having associated nausea, vomiting and fever. She has fever 101.8 F in ER. She last took medication( hydrocodone) at 1 pm today. She rates pain 04/26. MD elicited complaint: fever Related Data Home Medications Medication Instructions Recorded Confirmed albuterol sulfate 90 mcg/actuation 1 inh inhalation QID PRN 05/17/19 12/19/21 aerosol inhaler (ProAir HFA) Respiratory Distress Slofed 60 60 mg PO DAILY 12/30/20 12/19/21 vitamin B09-tgaunmg B1 100 mg-1 1 ml IM MONTHLY 05/01/21 12/19/21 mg/mL intramuscular solution cholecalciferol (vitamin D3) 1,250 1,250 mcg PO WEEKLY 07/02/21 12/19/21 mcg (50,000 unit) capsule ascorbic acid (vitamin C) 500 mg 500 mg PO DAILY 10/01/21 12/19/21 tablet allopurinol 300 mg tablet 300 mg PO DAILY 10/27/21 12/19/21 Allergies Allergy/AdvReac Type Severity Reaction Status Date / Time tramadol Allergy Severe Hives Verified 12/19/21 22:37 atorvastatin AdvReac Severe Nausea and Verified 12/19/21 22:37 Vomiting pravastatin AdvReac Intermediate Nausea and Verified 12/19/21 22:37 Vomiting budesonide AdvReac Mild Muscle Verified 12/19/21 22:37 Spasms formoterol AdvReac Mild Muscle Verified 12/19/21 22:37 Spasms Review of Systems Review of Systems: All systems reviewed & are unremarkable except as noted in HPI and below Constitutional: Constitutional: Reports chills, Reports fatigue and Reports fever(s) ENT: Denies dizziness and Denies sore throat Cardiovascular: Cardiovascular: Denies chest pain Respiratory: Respiratory: Denies chest congestion, Denies cough and Denies dyspnea Gastrointestinal: Gastrointestinal: Reports abdominal pain, Denies diarrhea, Reports nausea and Reports vomiting Genitourinary: Genitourinary: Denies hematuria and Denies nocturia Musculoskeletal: Musculoskeletal: Reports back pain [facility] Past Medical History Medical History Anemia Asthma Chronic kidney disease, stage IV (severe) Chronic neck pain MRI of cervical spine demonstrated [id number] cervical spondylosis C5 through C7, left foraminal narrowing and moderate right foraminal narrowing C5-C6, spinal stenosis with minimal flattening along the ventral cord C5 through C7. Claustrophobia Degenerative arthritis of left knee Diastolic dysfunction Gastroesophageal reflux disease Generalized osteoarthritis of multiple sites Hypercholesterolemia Hypertension Incontinence Iron deficiency anemia Kidney disease Morbid obesity Non-insulin dependent type 2 diabetes mellitus Obstructive sleep apnea on CPAP Psoriasis Screening for breast cancer Wears glasses Surgical History Surgical History History of appendectomy History of bilateral cataract extraction History of bilateral tubal ligation History of cholecystectomy History of colonoscopy History of esophageal dilatation History of lithotripsy History of total abdominal hysterectomy and bilateral salpingo-oophorectomy due to dysfunctional uterine bleeding Status post cystoscopy with ureteral stent placement Family History Family History Grandparent Acute myocardial infa
[2021-12-19 19:49] LABS: INR 1.2; Prothrombin Time 15.1 Seconds (11.1-14.7)
[2021-12-19 19:50] LABS: SARS-CoV-2 RNA PCR Negative
[2021-12-19] MEDS: LACTATED RINGERS 1,000 ML 999 ML IV CONT (20:21)
[2021-12-19] MEDS: ONDANSETRON INJ 4 MG/2 ML VIAL IV PUSH (20:23)
[2021-12-19] MEDS: HYDROmorphone HCL INJ (*CRX) 1 MG/ML SYR 0.5 MG IV PUSH (20:24)
--- NOTE | 2021-12-19 21:07 | PM.IMHP ---
H&P: HPI History of Present Illness Date/Time: 12/19/21 21:07 Chief Complaint: Flank pain Narrative: This is a 71-year-old female with past significant for chronic kidney disease, diastolic heart failure, urolithiasis, anemia of chronic disease, type 2 diabetes mellitus known insulin dependent, gastroesophageal reflux disease, gout, history of tobacco use. Patient was just recently discharged after she was treated for urolithiasis with stent placement and removal now patient comes back due to flank pain, chills, not feeling well for the last day or so after going home, having nausea but no vomiting, poor appetite, states that the hydrocodone has not been working for her and her pain was not well-controlled. Preliminary workup was significant for urinalysis with numerous WBCs present, chemistry panel was significant for creatinine 3.6, complete blood count showed a leukocyte count of 19,000. CT of abdomen and pelvis showed multiple left ureteral stones. Patient has been admitted for further evaluation management and treatment. Review of Systems Review of Systems: Flank pain, nausea, poor appetite, chills. Constitutional: Constitutional: Reports chills and Reports poor appetite Eyes: Eyes: Denies change in vision ENT: Denies dysphagia, Denies vertigo and Denies odynophagia Cardiovascular: Cardiovascular: Denies pedal edema, Denies irregular heart rhythm, Denies claudication, Denies lightheadedness, Denies radiating jaw, neck or arm pain, Denies palpitations and Denies dyspnea on exertion Respiratory: Respiratory: Denies chest congestion, Denies cough, Denies excessive phlegm production and Denies dyspnea Gastrointestinal: Gastrointestinal: Denies abdominal pain, Denies dyspepsia, Denies diarrhea, Reports nausea and Denies vomiting Genitourinary: Genitourinary: Reports flank pain (Left side) Musculoskeletal: Musculoskeletal: Denies arthralgias and Denies joint swelling Integumentary/Breasts: Skin/Breast: Denies rash Neurologic: Denies dizziness, Denies focal weakness and Denies Sensory deficit (Neuro) Psychiatric: Psychiatric: Reports no additional psychiatric complaints and Reports as per HPI Endocrine: Endocrine: Denies cold intolerance, Denies fatigue, Denies flushing, Denies heat intolerance, Denies polyphagia, Denies polydipsia and Denies palpitations Hematologic/Lymphatic: Hematologic/Lymphatic: Reports no additional hematologic/lymphatic complaints and Reports as per HPI Allergic/Immunologic: Allergic/Immunologic: Reports no additional allergic/immunologic complaints and Reports as per HPI [facility] Past Medical History Medical History Anemia Asthma Chronic kidney disease, stage IV (severe) Chronic neck pain MRI of cervical spine demonstrated [id number] cervical spondylosis C5 through C7, left foraminal narrowing and moderate right foraminal narrowing C5-C6, spinal stenosis with minimal flattening along the ventral cord C5 through C7. Claustrophobia Degenerative arthritis of left knee Diastolic dysfunction Gastroesophageal reflux disease Generalized osteoarthritis of multiple sites Hypercholesterolemia Hypertension Incontinence Iron deficiency anemia Kidney disease Morbid obesity Non-insulin dependent type 2 diabetes mellitus Obstructive sleep apnea on CPAP Psoriasis Screening for breast cancer Wears glasses Surgical History Surgical History History of appendectomy History of bilateral cataract extraction History of bilateral tubal ligation History of cholecystectomy History of colonoscopy History of esophageal dilatation History of lithotripsy History of total abdominal hysterectomy and bilateral salpingo-oophorectomy due to dysfunctional uterine bleeding Status post cystoscopy with ureteral stent placement Family History Family History Gra
[2021-12-19 22:05] LABS: Appearance Urine Clear (Clear); Bilirubin Urine Negative (Negative); Blood Urine Trace-lysed (Negative); Color Urine Yellow (Yellow); Glucose Urine UA Negative (Negative); Ketones Urine Negative (Negative); Leukocyte Esterase Ur 1+ LEU/UL (Negative); Nitrate Urine Negative (Negative); Protein Urine 1+ mg/dL (Negative); Urobilinogen Urine 0.2 mg/dL (<2.0); pH Urine 5.5 (5.0-9.0)
[2021-12-19 22:12] LABS: Add Urine Microscopic? YES; Bacteria Urine Trace /hpf; Mucus Urine Rare /lpf; Squamous Epithelial Cell Urine Many /hpf (Few); WBC Urine 21-30 /hpf
[2021-12-19] MEDS: MAGNESIUM SULF 2 GM/WATER 50ML 2 GM/50 ML BAG IVPB (22:16)
[2021-12-19] MEDS: SODIUM CHLORIDE 0.9% IV 1,000 ML 999 ML IV CONT (22:18)
--- NOTE | 2021-12-19 22:36 | ADMGEN ---
This patient, Edith Mayo, was admitted to 2 Medical Room 244-01 @2235. Patient/family oriented to hospital policies and general routines including ID bracelet, bed and alarms, visiting hours, pain management, procedures, bathroom and other care routines, personal items, smoking policy, room service/diet, and visiting hours. Information on how to activate the Rapid Response Team has been discussed. Patient/Family are encouraged to report perceived risks to care and to ask questions if they do not understand what they are told or what they should do.
[2021-12-19] MEDS: SODIUM CHLORIDE 0.9% IV 1,000 ML 125 ML IV CONT (22:57)
[2021-12-20] VITALS (16 sets, daily range): BP systolic 126–149; BP diastolic 50–67; PULSE 95–114; RESP 12–18; TEMP 36.3–37.2; O2SAT 92–100
[2021-12-20] MEDS: HYDROmorphone HCL INJ (*CRX) 1 MG/ML SYR 0.5 MG IV PUSH ×3 (00:16→08:13)
[2021-12-20] MEDS: SODIUM CHLORIDE 0.9% IV 1,000 ML 125 ML IV CONT ×2 (05:52→16:57)
[2021-12-20 05:59] LABS: Basophils Absolute Auto 0.1 K/mm3 (0.0-0.1); Basophils Percent Auto 0.3 % (0.2-1.2); Eosinophils Absolute Auto 0.2 K/mm3 (0-0.3); Eosinophils Percent Auto 1.1 % (0-4.4); Hematocrit 27.6 % (37.0-47.0); Hemoglobin 8.8 g/dL (12.0-15.0); Immature Granulocyte Absolute 0.13 K/mm3 (0.00-0.031); Immature Granulocyte Percent A 0.9 % (0-0.5); Lymphocytes Absolute Auto 0.77 K/mm3 (0.9-3.2); Lymphocytes Percent Auto 5.3 % (18.3-44.2); Mean Corpuscular HGB Conc 31.9 g/dl (32-36); Mean Corpuscular Hemoglobin 28.1 pg (26-34); Mean Corpuscular Volume 88.2 fl (80-100); Mean Platelet Volume 8.9 fl (7.4-10.4); Monocytes Percent Auto 6.8 % (2.6-8.5); Neutrophils Absolute Auto 12.4 K/mm3 (1.3-6.7); Neutrophils Percent Auto 85.6 % (45.5-73.1); Platelet Count Result 163 k/mm3 (150-375); Red Blood Count 3.13 M/mm3 (4.2-5.4); Red Cell Distribution Width 14.8 % (11.5-14.5); White Blood Count 14.5 K/mm3 (4.5-10.0)
[2021-12-20 06:08] LABS: Alanine Aminotransferase 12 U/L (6-35); Albumin Level 3.3 g/dL (3.5-5.1); Alkaline Phosphatase 81 U/L (38-126); Anion Gap 7 mmol/L (8-16); Aspartate Amino Transferase 25 U/L (14-36); Bilirubin,Total 0.4 mg/dL (0.2-1.3); Blood Urea Nitrogen 24 mg/dL (7-17); Calcium 7.4 mg/dL (8.4-10.2); Carbon Dioxide 22 mmol/L (22-30); Chloride 108 mmol/L (98-107); Estimated CRCL calculation 13 ml/min; Estimated Glomerular Filt Rate 11; Glucose 170 mg/dL (65-110); Potassium 3.6 mmol/L (3.4-5.0); Sodium 137 mmol/L (137-145)
[2021-12-20 07:25] LABS: Magnesium 1.4 mg/dL (1.6-2.3)
[2021-12-20 08:10] LABS: Glucose Point of Care 160 mg/dl (65-105)
[2021-12-20] MEDS: PANTOPRAZOLE 40 MG TABLET PO ×2 (08:13→16:59)
[2021-12-20] MEDS: allopurinoL 300 MG TABLET PO (08:13)
[2021-12-20] MEDS: ASCORBIC ACID 500 MG TABLET PO (08:13)
--- NOTE | 2021-12-20 08:37 | WPDURCON ---
Assessment and Plan Assessment and plan (1) Left ureteral stone: Code(s): N20.1 - Calculus of ureter Status: Acute (2) Hydronephrosis, left: Code(s): N13.30 - Unspecified hydronephrosis Status: Acute (3) Left ureteral stone: Code(s): N20.1 - Calculus of ureter Status: Acute (4) Chronic kidney disease, stage IV (severe): Code(s): N18.4 - Chronic kidney disease, stage 4 (severe) Status: Chronic (5) LOLA (acute kidney injury): Code(s): N17.9 - Acute kidney failure, unspecified Status: Acute (6) Sepsis: Code(s): A41.9 - Sepsis, unspecified organism Status: Acute Plan Keep NPO Consent for cystoscopy left stent placement due to evidence of UTI/Pyelonephritis Continue current antibiotics until sensitivities return Patient agrees with plan Urology Consult Note HPI Date Seen: 12/20/21 Requesting Physician: Ondina Tinoco PA-C Primary Care Provider: Wiley Causey MD Consult Narrative Narrative: Edith Mayo is a 71 year old female who underwent a left ureteroscopy and stone extraction by Dr Kate in mid November 2021. She came into office on 12/18/21 for stent removal. Within 24 hours after stent removal, patient developed left flank pain, fevers, nausea and vomiting. She present to [facility] and CT noted left moderate hydroureter and hydronephrosis along with 3 small calculi along the left ureter tract. Found to have an elevated WBC and tachycardia in ER. Admitted for presumed pyelonephritis and request for stent reinsertion due to evidence of infection. Review of Systems Review of Systems: as per HPI [facility] Past Medical History Medical History Anemia Asthma Chronic kidney disease, stage IV (severe) Chronic neck pain MRI of cervical spine demonstrated [id number] cervical spondylosis C5 through C7, left foraminal narrowing and moderate right foraminal narrowing C5-C6, spinal stenosis with minimal flattening along the ventral cord C5 through C7. Claustrophobia Degenerative arthritis of left knee Diastolic dysfunction Gastroesophageal reflux disease Generalized osteoarthritis of multiple sites Hypercholesterolemia Hypertension Incontinence Iron deficiency anemia Kidney disease Morbid obesity Non-insulin dependent type 2 diabetes mellitus Obstructive sleep apnea on CPAP Psoriasis Screening for breast cancer Wears glasses Surgical History Surgical History History of appendectomy History of bilateral cataract extraction History of bilateral tubal ligation History of cholecystectomy History of colonoscopy History of esophageal dilatation History of lithotripsy History of total abdominal hysterectomy and bilateral salpingo-oophorectomy due to dysfunctional uterine bleeding Status post cystoscopy with ureteral stent placement Family History Family History Grandparent Acute myocardial infarction Family history of malignant neoplasm Carcinoma of colon Mother Family history of liver disease Mother who in her late 50s of cirrhosis related to hepatitis C Father Leukemia father who in his 60s of leukemia. Sibling Heart disease Social History Social History Social History: She lives with a roommate in [place]. 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 She then went on disability when she had a nervous breakdown. She has 3 children who are all healthy. She is a former smoker and smoked at least 2 packs of cigarettes per day from the age of 17 to age 57. She rarely drinks alcohol and only in moderation. Surrogate decision maker: Aarti Gupta (daughter). Code status: Full code. Smoking packs per day: 2.5 Smoking cigarettes per day: 50.0 Years smoked: 50 Smoking pack-year
--- NOTE | 2021-12-20 10:20 | WPDANESEPPF ---
Anes - Initial Pre Proc Eval Procedure: Operation Date: 12/20/21 10:30 Proposed Procedures p Cysto, RPG, Stone Ext, Stent Placement(Left) - Manjit Balderas MD Date/Time: 12/20/21 10:20 Surgeon: Ondina Tinoco PA-C Pre Op Diagnosis: Sepsis,Obstructing Left Ureteral Stones Patient Data Age: 71 Gender: F Height: 1.57 m Weight: 97.9 kg Last Vital Signs Temp 36.6 C 12/20/21 04:23 Pulse 97 12/20/21 04:23 Resp 18 12/20/21 04:23 BP 147/59 H 12/20/21 04:23 Pulse Ox 96 12/20/21 07:33 O2 Del Method BiPAP 12/20/21 07:33 O2 Flow Rate 2 12/20/21 07:33 FiO2 30 12/20/21 00:06 Allergies Allergy/AdvReac Type Severity Reaction Status Date / Time tramadol Allergy Severe Hives Verified 12/19/21 22:37 atorvastatin AdvReac Severe Nausea and Verified 12/19/21 22:37 Vomiting pravastatin AdvReac Intermediate Nausea and Verified 12/19/21 22:37 Vomiting budesonide AdvReac Mild Muscle Verified 12/19/21 22:37 Spasms formoterol AdvReac Mild Muscle Verified 12/19/21 22:37 Spasms Home Medications Medication Instructions Recorded Confirmed Type albuterol sulfate 90 mcg/actuation 1 inh inhalation QID PRN 05/17/19 12/19/21 History aerosol inhaler (ProAir HFA) Respiratory Distress Slofed 60 60 mg PO DAILY 12/30/20 12/19/21 History vitamin [id number] B1 100 mg-1 1 ml IM MONTHLY 05/01/21 12/19/21 History mg/mL intramuscular solution glimepiride 1 mg tablet 1 mg PO DAILY #90 tabs 06/15/21 12/19/21 Rx cholecalciferol (vitamin D3) 1,250 1,250 mcg PO WEEKLY 07/02/21 12/19/21 History mcg (50,000 unit) capsule omeprazole 40 mg capsule,delayed 40 mg PO DAILY #30 caps 07/29/21 12/19/21 Rx release semaglutide 1 mg/dose (4 mg/3 mL) 1 mg (0.75 mL) subcut WEEKLY 3 08/04/21 12/19/21 Rx subcutaneous pen injector (Ozempic) months #9.75 mL ascorbic acid (vitamin C) 500 mg 500 mg PO DAILY 10/01/21 12/19/21 History tablet amlodipine 5 mg tablet 5 mg PO DAILY #90 tabs 10/14/21 12/19/21 Rx allopurinol 300 mg tablet 300 mg PO DAILY 10/27/21 12/19/21 History hydrocodone 5 mg-acetaminophen 325 1 tablet PO Q6H PRN pain #10 tabs 11/29/21 12/19/21 Rx mg tablet Laboratory Tests 12/19/21 12/19/21 12/19/21 18:47 18:47 19:08 WBC 19.3 K/mm3 H K/mm3 (4.5-10.0) RBC 3.70 M/mm3 L M/mm3 (4.2-5.4) Hgb 10.4 g/dL L g/dL (12.0-15.0) Hct 33.0 % L % (37.0-47.0) MCV 89.2 fl fl (80-100) MCH 28.1 pg pg (26-34) MCHC 31.5 g/dl L g/dl (32-36) RDW 14.9 % H % (11.5-14.5) Plt Count 216 k/mm3 k/mm3 (150-375) MPV 8.9 fl fl (7.4-10.4) Immature Gran % (Auto) 0.6 % H % (0-0.5) Neut % (Auto) 85.8 % H % (45.5-73.1) Lymph % (Auto) 6.0 % L % (18.3-44.2) [place] % (Auto) 5.6 % % (2.6-8.5) Eos % (Auto) 1.6 % % (0-4.4) Baso % (Auto) 0.4 % % (0.2-1.2) Lymph # (Auto) 1.15 K/mm3 K/mm3 (0.9-3.2) [place] # (Auto) 1.1 K/mm3 H K/mm3 (0.1-0.6) Eos # (Auto) 0.3 K/mm3 K/mm3 (0-0.3) Baso # (Auto) 0.1 K/mm3 K/mm3 (0.0-0.1) Abs Immat Gran (auto) 0.12 K/mm3 H K/mm3 (0.00-0.031) Absolute Neuts (auto) 16.6 K/mm3 H K/mm3 (1.3-6.7) Absolute Nucleated RBC 0.0 K/mm3 K/mm3 (0.0-0.012) Nucleated RBC % 0.0 % % (0.0-0.2) PT INR APTT Sodium 136 mmol/L L mmol/L (137-145) Potassium 3.7 mmol/L mmol/L (3.4-5.0) Chloride 104 mmol/L mmol/L (98-107) Carbon Dioxide 23 mmol/L mmol/L (22-30) Anion Gap 9 mmol/L mmol/L (8-16) BUN 21 mg/dL H mg/dL (7-17) Creatinine 3.60 mg/dL H mg/dL (0.7-1.0) Estim Creat Clear Calc 15 ml/min ml/min Estimated GFR 13 L (59 - ) Glucose 163 mg/dL H mg/dL (65-110) POC Capillary Glucose
[2021-12-20] MEDS: LIDOCAINE HCL 2% GEL UROJET 10 ML PKG MUCOUS MEM (11:12)
[2021-12-20] MEDS: LACTATED RINGERS 1,000 ML 30 ML IV CONT (11:27)
--- NOTE | 2021-12-20 11:34 | PM.OP ---
Procedure Note - Brief Procedure Note - Brief Date of procedure: 12/20/21 Pre-op diagnosis: Sepsis,Obstructing Left Ureteral Stones Left hydronephrosis, left ureter stone, renal colic and pyelonephritis Procedure performed: Cystoscopy, left retrograde pyelogram, left stent placement and abdullahi catheter insertion Implants: 6Frxvariable length stent Surgeon: Gordon Balderas MD
[2021-12-20 11:37] LABS: Glucose Point of Care 155 mg/dl (65-105)
[2021-12-20] MEDS: fentaNYL CITRATE INJ (*CRX) 100 MCG/2 ML VIAL 25 MCG IV PUSH ×2 (11:55→12:01)
--- NOTE | 2021-12-20 13:35 | PM.IMPN ---
Progress Note: A&P Assessment and Plan (1) Left ureteral stone: Code(s): N20.1 - Calculus of ureter Status: Acute Assessment and Plan: -noted on CT abd/pelv -went to OR today for Cystoscopy, left retrograde pyelogram, left stent placement and abdullahi catheter insertion -further management per urology (2) Urinary tract infection: Code(s): N39.0 - Urinary tract infection, site not specified Status: Acute Assessment and Plan: -UA w/ 1+ leukocytes, 21-30 WBCs -continue rocephin -follow urine culture (3) Chronic kidney disease, stage IV (severe): Code(s): N18.4 - Chronic kidney disease, stage 4 (severe) Status: Chronic Assessment and Plan: -continue IVF -continue monitoring BMP (4) Diastolic dysfunction: Code(s): I51.89 - Other ill-defined heart diseases Status: Acute Assessment and Plan: -Appears euvolemic -Continue to monitor daily intake and output -caution with IVF (5) Chronic anemia: Code(s): D64.9 - Anemia, unspecified Status: Acute Assessment and Plan: -likely secondary to chronic kidney disease -Follow-up in outpatient setting (6) Obstructive sleep apnea on CPAP: Code(s): G47.33 - Obstructive sleep apnea (adult) (pediatric); Z99.89 - Dependence on other enabling machines and devices Status: Acute Assessment and Plan: -cpap available at night (7) Gastroesophageal reflux disease: Code(s): K21.9 - Gastro-esophageal reflux disease without esophagitis Status: Acute Assessment and Plan: -continue protonix (8) Non-insulin dependent type 2 diabetes mellitus: Code(s): E11.9 - Type 2 diabetes mellitus without complications Status: Acute Assessment and Plan: -low dose sliding scale, accuchecks, hypoglycemic protocol Subjective Date/time seen: 12/20/21 13:35 Interval history: 71-year-old female with past significant for chronic kidney disease, diastolic heart failure, urolithiasis, anemia of chronic disease, type 2 diabetes mellitus known insulin dependent, gastroesophageal reflux disease, gout, admitted for urolithiasis. Pt was recently discharged after being treated for urolithiasis with stent placement and removal. Pt had just come back from OR today on my arrival. Still somewhat sleepy and out of it from anesthesia. No pain currently. Some nausea, no vomiting. Review of Systems Review of Systems: All systems reviewed & are unremarkable except as noted in HPI and below Exam Narrative: General: No acute distress, non toxic appearing Eyes: PERRL, no scleral icterus HEENT: NCAT, external ears normal, MMM Respiratory: No respiratory distress, Lungs CTA bilaterally, no wheezing Cardiovascular: RRR, no murmur Abdominal: Soft, nontender, non distended, no rebound or guarding Musculoskeletal: Moves all 4 extremities, no edema Neurological: A/Ox3, speech clear, no facial asymmetry Skin: Warm, dry, no rashes Psychiatric: Normal affect, normal mood Objective Data Vital Signs Vital Signs: Vital Signs - 24 hr 12/19/21 18:37 12/19/21 18:44 12/19/21 18:45 Temperature 101.8 F H Pulse Rate 126 H 122 H 122 H Respiratory Rate 24 H 16 19 Blood Pressure 154/66 H Pulse Oximetry 98 96 97 Oxygen Delivery Room Air Oxygen Flow Rate Fraction of Inspired Oxygen 12/19/21 18:46 12/19/21 19:16 12/19/21 19:30 Temperature Pulse Rate 122 H 126 H 117 H Respiratory Rate 22 H 19 18 Blood Pressure 174/71 H Pulse Oximetry 96 96 96 Oxygen Delivery Oxygen Flow Rate Fraction of Inspired Oxygen 12/19/21 19:45 12/19/21 20:14 12/19/21 20:15 Temperature Pulse Rate 116 H 113 H 113 H Respiratory Rate 17 19 20 Blood Pressure Pulse Oximetry 94 97 96 Oxygen Delivery Oxygen Flow Rate Fraction of Inspired Oxygen 12/19/21 20:31 12/19/21 20:46 12/19/21 22:0
--- NOTE | 2021-12-20 13:46 | PCCCNOTE ---
On 12/20/21, the student, [Sammi Wade], provided care and completed [facility] documentation on this patient. I have reviewed the student's documentation and agree with the findings.
[2021-12-20 16:33] LABS: Glucose Point of Care 132 mg/dl (65-105)
[2021-12-20] MEDS: HEPARIN SODIUM 5,000 UNITS/ML VIAL 5000 UNITS SUB-Q (20:29)
[2021-12-20 21:14] LABS: Glucose Point of Care 147 mg/dl (65-105)
[2021-12-21] MEDS: SODIUM CHLORIDE 0.9% IV 1,000 ML 125 ML IV CONT ×2 (01:28→11:33)
[2021-12-21 04:10] VITALS: BP 138/52; PULSE 100; RESP 18; TEMP 36.6; O2SAT 94
[2021-12-21 05:50] LABS: Basophils Absolute Auto 0.1 K/mm3 (0.0-0.1); Basophils Percent Auto 0.5 % (0.2-1.2); Eosinophils Absolute Auto 0.5 K/mm3 (0-0.3); Eosinophils Percent Auto 5.3 % (0-4.4); Hematocrit 25.8 % (37.0-47.0); Hemoglobin 8.2 g/dL (12.0-15.0); Immature Granulocyte Absolute 0.07 K/mm3 (0.00-0.031); Immature Granulocyte Percent A 0.8 % (0-0.5); Lymphocytes Absolute Auto 1.21 K/mm3 (0.9-3.2); Lymphocytes Percent Auto 13.3 % (18.3-44.2); Mean Corpuscular HGB Conc 31.8 g/dl (32-36); Mean Corpuscular Hemoglobin 28.1 pg (26-34); Mean Corpuscular Volume 88.4 fl (80-100); Mean Platelet Volume 9.2 fl (7.4-10.4); Monocytes Absolute Auto 0.6 K/mm3 (0.1-0.6); Monocytes Percent Auto 6.4 % (2.6-8.5); Neutrophils Absolute Auto 6.7 K/mm3 (1.3-6.7); Neutrophils Percent Auto 73.7 % (45.5-73.1); Platelet Count Result 167 k/mm3 (150-375); Red Blood Count 2.92 M/mm3 (4.2-5.4); Red Cell Distribution Width 14.8 % (11.5-14.5); White Blood Count 9.1 K/mm3 (4.5-10.0)
[2021-12-21 05:58] LABS: Alanine Aminotransferase 8 U/L (6-35); Albumin Level 2.8 g/dL (3.5-5.1); Alkaline Phosphatase 72 U/L (38-126); Anion Gap 6 mmol/L (8-16); Aspartate Amino Transferase 14 U/L (14-36); Bilirubin,Total 0.2 mg/dL (0.2-1.3); Blood Urea Nitrogen 24 mg/dL (7-17); Calcium 7.3 mg/dL (8.4-10.2); Carbon Dioxide 21 mmol/L (22-30); Chloride 110 mmol/L (98-107); Estimated CRCL calculation 14 ml/min; Estimated Glomerular Filt Rate 12; Glucose 99 mg/dL (65-110); Magnesium 1.4 mg/dL (1.6-2.3); Potassium 3.3 mmol/L (3.4-5.0); Sodium 137 mmol/L (137-145)
[2021-12-21] MEDS: POTASSIUM CHLORIDE 20 MEQ TABLET PO (06:53)
[2021-12-21 07:47] LABS: Glucose Point of Care 107 mg/dl (65-105)
[2021-12-21 07:48] VITALS: O2SAT 95
--- NOTE | 2021-12-21 08:03 | PM.IMPN ---
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 -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, continue abx for now (3) Chronic kidney disease, stage IV (severe): Code(s): N18.4 - Chronic kidney disease, stage 4 (severe) Status: Chronic Assessment and Plan: -continue IVF -downtrending slowly now s/p stent placement -continue monitoring BMP (4) Diastolic dysfunction: Code(s): I51.89 - Other ill-defined heart diseases Status: Acute Assessment and Plan: -Appears euvolemic -Continue to monitor daily intake and output -caution with IVF (5) Chronic anemia: Code(s): D64.9 - Anemia, unspecified Status: Acute Assessment and Plan: -likely secondary to chronic kidney disease -Follow-up in outpatient setting (6) Obstructive sleep apnea on CPAP: Code(s): G47.33 - Obstructive sleep apnea (adult) (pediatric); Z99.89 - Dependence on other enabling machines and devices Status: Acute Assessment and Plan: -cpap available at night -on 2L NC currently, not normally on daytime oxygen. Denies sob. No cp. Check CXR. Wean oxygen as tolerated. (7) Gastroesophageal reflux disease: Code(s): K21.9 - Gastro-esophageal reflux disease without esophagitis Status: Acute Assessment and Plan: -continue protonix (8) Non-insulin dependent type 2 diabetes mellitus: Code(s): E11.9 - Type 2 diabetes mellitus without complications Status: Acute Assessment and Plan: -low dose sliding scale, accuchecks, hypoglycemic protocol Subjective Date/time seen: 12/21/21 08:03 Interval history: 71-year-old female with past significant for chronic kidney disease, diastolic heart failure, urolithiasis, anemia of chronic disease, type 2 diabetes mellitus known insulin dependent, gastroesophageal reflux disease, gout, admitted for urolithiasis. Pt was recently discharged after being treated for urolithiasis with stent placement and removal. POD #1 s/p ureteral stent. Pt feeling okay today. Some intermittent nausea, no vomiting. No abd pain/back pain. On 2L NC currently, does not normally wear home oxygen. No urinary symptoms. Review of Systems Review of Systems: All systems reviewed & are unremarkable except as noted in HPI and below Exam Narrative: General: No acute distress, non toxic appearing Eyes: PERRL, no scleral icterus HEENT: NCAT, external ears normal, MMM Respiratory: No respiratory distress, Lungs CTA bilaterally, no wheezing Cardiovascular: RRR, no murmur Abdominal: Soft, nontender, non distended, no rebound or guarding Musculoskeletal: Moves all 4 extremities, trace non pitting edema Neurological: A/Ox3, speech clear, no facial asymmetry Skin: Warm, dry, no rashes Psychiatric: Normal affect, normal mood Objective Data Vital Signs Vital Signs: Vital Signs - 24 hr 12/20/21 11:27 12/20/21 11:40 12/20/21 11:55 Temperature 98.9 F Pulse Rate 114 H 107 H 110 H Respiratory Rate 17 16 16 Blood Pressure 137/67 146/61 H 139/61 Pulse Oximetry 98 100 92 Oxygen Delivery Simple Face Mask Simple Face Mask Room Air Oxygen Flow Rate 8 8 Fraction of Inspired Oxygen 12/20/21 11:59 12/20/21 12:10 12/20/21 12:25 Temperature Pulse Rate 109 H 108 H Respiratory Rate 12 14 Blood Pressure 139/61 136/56 L Pulse Oxim
[2021-12-21] MEDS: HEPARIN SODIUM 5,000 UNITS/ML VIAL 5000 UNITS SUB-Q ×2 (08:25→20:49)
[2021-12-21] MEDS: ASCORBIC ACID 500 MG TABLET PO (08:25)
[2021-12-21] MEDS: amLODIPine BESYLATE 5 MG TABLET PO (08:25)
[2021-12-21] MEDS: allopurinoL 300 MG TABLET PO (08:25)
[2021-12-21] MEDS: PANTOPRAZOLE 40 MG TABLET PO ×2 (08:25→16:30)
[2021-12-21 08:57] LABS: Appearance Urine Cloudy (Clear); Bilirubin Urine Negative (Negative); Blood Urine 2+ (Negative); Color Urine Yellow (Yellow); Glucose Urine UA Negative (Negative); Ketones Urine Negative (Negative); Leukocyte Esterase Ur 3+ LEU/UL (Negative); Nitrate Urine Negative (Negative); Protein Urine 1+ mg/dL (Negative); Specific Grav Ur 1.015 (1.001-1.035); Urobilinogen Urine 0.2 mg/dL (<2.0); pH Urine 5.5 (5.0-9.0)
[2021-12-21 09:17] LABS: Bacteria Urine Trace /hpf; Mucus Urine Rare /lpf; RBC Urine 21-50 /hpf (0-2); Squamous Epithelial Cell Urine Occasional /hpf (Few); WBC Clumps Urine Present /HPF; WBC Urine >75 /hpf
[2021-12-21 09:18] LABS: Add Urine Microscopic? YES
[2021-12-21 11:47] LABS: Glucose Point of Care 129 mg/dl (65-105)
--- NOTE | 2021-12-21 13:19 | WPDUROPN2 ---
Progress Note: A&P Assessment and Plan (1) Left ureteral stone: Code(s): N20.1 - Calculus of ureter Status: Acute Assessment and Plan: Since her urine culture is negative, we will plan to go back to the OR tomorrow for a Cystoscopy, left ureteroscopy with stone extraction, left stent exchange, possible holmium laser, left retrograde pyelogram with Dr. Enciso. I have reviewed her case and images with him. She will be NPO after midnight. (2) Sepsis: Code(s): A41.9 - Sepsis, unspecified organism Status: Acute Assessment and Plan: Urine Culture is negative, patient is stable. A repeat urine culture was done today, but I expect with a stent for her urine to look abnormal. (3) Acute kidney injury: Code(s): N17.9 - Acute kidney failure, unspecified Status: Acute Plan Improved since stent placement, patient has a baseline creatinine of 2.10. Should continue to improve since stent was placed. Subjective Subjective Date/Time Seen: 12/21/21 13:19 POD #1 Cystoscopy, left stent, left retrograde pyelogram. Urine Culture is negative, patient's creatinine is improving to 3.70 (baseline is around 2.10). WBC is stable at 9.1 and she is afebrile. She states her pain is much improved at this time. Her ureteral stones are not visible on KUB. Review of Systems Cardiovascular: Cardiovascular: Denies chest pain Respiratory: Respiratory: Denies dyspnea Gastrointestinal: Gastrointestinal: Denies abdominal pain, Denies nausea and Denies vomiting Genitourinary: Genitourinary: Denies hematuria, Denies dysuria, Denies flank pain and Denies urinary urgency Exam Resp: Effort & Inspection: normal respiratory effort Cardio: Rate: regular rate GI: GI Palp: Yes Soft to palpation and No Tenderness to palpation present (GI) : General: Yes no CVA tenderness Urinary Catheter: Urinary Catheter: patent and draining and urine clear Extrem: General: no edema Objective Data Vital Signs Vital Signs: Vital Signs - 24 hr 12/20/21 14:20 12/20/21 19:16 12/20/21 20:00 Temperature 97.4 F L 98.5 F Pulse Rate 105 H 104 H 104 H Respiratory Rate 16 17 17 Blood Pressure 149/50 H 149/53 H Pulse Oximetry 95 95 95 Oxygen Delivery Nasal Cannula Oxygen Flow Rate 2 Fraction of Inspired Oxygen 30 12/21/21 04:10 12/20/21 21:30 12/21/21 07:48 Temperature 97.9 F Pulse Rate 100 101 H Respiratory Rate 18 Blood Pressure 138/52 L Pulse Oximetry 94 94 95 Oxygen Delivery Nasal Cannula Nasal Cannula Oxygen Flow Rate 2 2 Fraction of Inspired Oxygen Intake/Output Intake/Output: Intake & Output 12/18/21 12/19/21 12/20/21 12/21/21 23:59 23:59 23:59 23:59 Intake Total 1200 2715 2120 Output Total 1025 950 Balance 1200 1690 1170 Meds/Results Medications: Active Medications Generic Name Dose Route Start Last Admin Trade Name Freq PRN Reason Stop Dose Admin Hydrocodone Bitart/Acetaminophen 1 tab 12/20/21 13:43 Hydrocodone/Acetaminophen (*Crx) 5-325 Mg Tablet PO Q6H PRN PAIN 4-6 Albuterol 1 puff 12/20/21 02:11 Albuterol Sulfate (*Sp) Aerosol 1 Puff INHALATION QID PRN Respiratory Distress Allopurinol 300 mg 12/20/21 08:00 12/21/21 08:25 Allopurinol 300 Mg Tablet PO 300 mg DAILY@0800 AQUILINO Administration Amlodipine Besylate 5 mg 12/21/21 09:00 12/21/21 08:25 Amlodipine Besylate 5 Mg Tablet PO 5 mg DAILY AQUILINO Administration Ascorbic Acid 500 mg 12/20/21 09:00 12/21/21 08:25 Ascorbic Acid 500 Mg Tablet PO 500 mg DAILY AQUILINO Administration Dextrose 12.5 gm 12/20/21 13:44 Dextrose 50% 25 Gm/50 Ml Syringe IV PUSH PRN PRN Hypoglycemia Protocol Glucagon 1 mg 12/20/21 13:44 Glucagon For Inj 1 Mg Vial IM PRN PRN Hypoglycemia Protocol Glucose 15 gm 12/20/21 13:44 Glucose Oral Gel 15 Gm Of Glucse In 37.5 Gm Tube PO PRN PRN Hypoglycemia Protoco
--- NOTE | 2021-12-21 13:32 | WPDANESPN ---
Anes - Prog Note Post-Op Date/Time: 12/21/21 13:32 Cardiovascular status: normal Respiratory status: normal Airway patency: baseline Mental status: baseline Post-Op hydration status: normal Vital Signs: Last Vital Signs Temp 97.9 F 12/21/21 04:10 Pulse 100 12/21/21 04:10 Resp 18 12/21/21 04:10 BP 138/52 L 12/21/21 04:10 Pulse Ox 95 12/21/21 07:48 O2 Del Method Nasal Cannula 12/21/21 07:48 O2 Flow Rate 2 12/21/21 07:48 FiO2 30 12/20/21 20:00 Pain Score (VAS): 0 I/O: Intake & Output 12/20/21 12/21/21 12/21/21 23:59 07:59 15:59 Intake Total 590 1000 1120 Output Total 850 950 Balance -789 91 6441 Laboratory Tests 12/21/21 05:10 12/21/21 05:10 12/20/21 12/20/21 12/21/21 16:22 20:29 05:10 WBC 9.1 RBC 2.92 L Hgb 8.2 L Hct 25.8 L MCV 88.4 MCH 28.1 MCHC 31.8 L RDW 14.8 H Plt Count 167 MPV 9.2 Immature Gran % (Auto) 0.8 H Neut % (Auto) 73.7 H Lymph % (Auto) 13.3 L [place] % (Auto) 6.4 Eos % (Auto) 5.3 H Baso % (Auto) 0.5 Lymph # (Auto) 1.21 [place] # (Auto) 0.6 Eos # (Auto) 0.5 H Baso # (Auto) 0.1 Abs Immat Gran (auto) 0.07 H Absolute Neuts (auto) 6.7 Absolute Nucleated RBC 0.0 Nucleated RBC % 0.0 Sodium Potassium Chloride Carbon Dioxide Anion Gap BUN Creatinine Estim Creat Clear Calc Estimated GFR Glucose POC Capillary Glucose 132 H 147 H Calcium Magnesium Total Bilirubin AST ALT Alkaline Phosphatase Total Protein Albumin Urine Color Urine Appearance Urine pH Ur Specific [place] Urine Protein Urine Glucose (UA) Urine Ketones Ur Blood (Man) Urine Nitrate Urine Bilirubin Urine Urobilinogen Leukocyte Esterase Rfl Urine RBC Urine WBC Urine WBC Clumps Ur Squamous Epith Cells Urine Bacteria Urine Mucus 12/21/21 12/21/21 12/21/21 05:10 07:42 08:47 WBC RBC Hgb Hct MCV MCH MCHC RDW Plt Count MPV Immature Gran % (Auto) Neut % (Auto) Lymph % (Auto) [place] % (Auto) Eos % (Auto) Baso % (Auto) Lymph # (Auto) [place] # (Auto) Eos # (Auto) Baso # (Auto) Abs Immat Gran (auto) Absolute Neuts (auto) Absolute Nucleated RBC Nucleated RBC % Sodium 137 Potassium 3.3 L Chloride 110 H Carbon Dioxide 21 L Anion Gap 6 L BUN 24 H Creatinine 3.70 H Estim Creat Clear Calc 14 Estimated GFR 12 L Glucose 99 POC Capillary Glucose 107 H Calcium 7.3 L Magnesium 1.4 L Total Bilirubin 0.2 AST 14 ALT 8 Alkaline Phosphatase 72 Total Protein 6.0 L Albumin 2.8 L Urine Color Yellow Urine Appearance Cloudy H Urine pH 5.5 Ur Specific [place] 1.015 Urine Protein 1+ H Urine Glucose (UA) Negative Urine Ketones Negative Ur Blood (Man) 2+ H Urine Nitrate Negative Urine Bilirubin Negative Urine Urobilinogen 0.2 Leukocyte Esterase Rfl 3+ H Urine RBC 21-50 H Urine WBC >75 H Urine WBC Clumps Present H Ur Squamous Epith Cells Occasional Urine Bacteria Trace Urine Mucus Rare 12/21/21 11:40 WBC RBC Hgb Hct MCV MCH MCHC RDW Plt Count MPV Immature Gran % (Auto) Neut % (Auto) Lymph % (Auto) [place] % (Auto) Eos % (Auto) Baso % (Auto) Lymph # (Auto) [place] # (Auto) Eos # (Auto) Baso # (Auto) Abs Immat Gran (auto) Absolute Neuts (auto) Absolute Nucleated RBC Nucleated RBC % Sodium Potassium Chloride Carbon Dioxide Anion Gap BUN Creatinine Estim Creat Clear Calc Estimated GFR Glucose POC Capillary Glucose 129 H Calcium Magnesium Total Bilirubin AST ALT Alkaline Phosphatase Total Protein Albumin Urine Color Urine Appearance Urine pH Ur Specific [place] Urine Protein Urine Glucose (UA) Urine Ketones Ur Blood (Man) Urine Nitrate
--- NOTE | 2021-12-21 13:49 | WPDANESEPPF ---
Anes - Initial Pre Proc Eval Procedure: Operation Date: 12/20/21 10:30 Proposed Procedures p Cysto, RPG, Stone Ext, Stent Placement(Left) - Manjit Balderas MD Operation Date: 12/22/21 14:30 Proposed Procedures p Cystoscopy, Left Retrograde Pyelogram, Left Ureteroscopy with Stone Extraction, Left Stent Exchange, Possible Holmium Laser - Ulises Enciso MD Date/Time: 12/21/21 13:49 Surgeon: Ondina Tinoco PA-C Pre Op Diagnosis: Sepsis,Obstructing Left Ureteral Stones Patient Data Age: 71 Gender: F Height: 1.57 m Weight: 97.9 kg Last Vital Signs Temp 36.6 C 12/21/21 04:10 Pulse 100 12/21/21 04:10 Resp 18 12/21/21 04:10 BP 138/52 L 12/21/21 04:10 Pulse Ox 95 12/21/21 07:48 O2 Del Method Nasal Cannula 12/21/21 07:48 O2 Flow Rate 2 12/21/21 07:48 FiO2 30 12/20/21 20:00 Allergies Allergy/AdvReac Type Severity Reaction Status Date / Time tramadol Allergy Severe Hives Verified 12/19/21 22:37 atorvastatin AdvReac Severe Nausea and Verified 12/19/21 22:37 Vomiting pravastatin AdvReac Intermediate Nausea and Verified 12/19/21 22:37 Vomiting budesonide AdvReac Mild Muscle Verified 12/19/21 22:37 Spasms formoterol AdvReac Mild Muscle Verified 12/19/21 22:37 Spasms Home Medications Medication Instructions Recorded Confirmed Type albuterol sulfate 90 mcg/actuation 1 inh inhalation QID PRN 05/17/19 12/19/21 History aerosol inhaler (ProAir HFA) Respiratory Distress Slofed 60 60 mg PO DAILY 12/30/20 12/19/21 History vitamin M20-wsohazj B1 100 mg-1 1 ml IM MONTHLY 05/01/21 12/19/21 History mg/mL intramuscular solution glimepiride 1 mg tablet 1 mg PO DAILY #90 tabs 06/15/21 12/19/21 Rx cholecalciferol (vitamin D3) 1,250 1,250 mcg PO WEEKLY 07/02/21 12/19/21 History mcg (50,000 unit) capsule omeprazole 40 mg capsule,delayed 40 mg PO DAILY #30 caps 07/29/21 12/19/21 Rx release semaglutide 1 mg/dose (4 mg/3 mL) 1 mg (0.75 mL) subcut WEEKLY 3 08/04/21 12/19/21 Rx subcutaneous pen injector (Ozempic) months #9.75 mL ascorbic acid (vitamin C) 500 mg 500 mg PO DAILY 10/01/21 12/19/21 History tablet amlodipine 5 mg tablet 5 mg PO DAILY #90 tabs 10/14/21 12/19/21 Rx allopurinol 300 mg tablet 300 mg PO DAILY 10/27/21 12/19/21 History hydrocodone 5 mg-acetaminophen 325 1 tablet PO Q6H PRN pain #10 tabs 11/29/21 12/19/21 Rx mg tablet Laboratory Tests 12/20/21 12/20/21 12/21/21 16:22 20:29 05:10 WBC 9.1 K/mm3 K/mm3 (4.5-10.0) RBC 2.92 M/mm3 L M/mm3 (4.2-5.4) Hgb 8.2 g/dL L g/dL (12.0-15.0) Hct 25.8 % L % (37.0-47.0) MCV 88.4 fl fl (80-100) MCH 28.1 pg pg (26-34) MCHC 31.8 g/dl L g/dl (32-36) RDW 14.8 % H % (11.5-14.5) Plt Count 167 k/mm3 k/mm3 (150-375) MPV 9.2 fl fl (7.4-10.4) Immature Gran % (Auto) 0.8 % H % (0-0.5) Neut % (Auto) 73.7 % H % (45.5-73.1) Lymph % (Auto) 13.3 % L % (18.3-44.2) [place] % (Auto) 6.4 % % (2.6-8.5) Eos % (Auto) 5.3 % H % (0-4.4) Baso % (Auto) 0.5 % % (0.2-1.2) Lymph # (Auto) 1.21 K/mm3 K/mm3 (0.9-3.2) [place] # (Auto) 0.6 K/mm3 K/mm3 (0.1-0.6) Eos # (Auto) 0.5 K/mm3 H K/mm3 (0-0.3) Baso # (Auto) 0.1 K/mm3 K/mm3 (0.0-0.1) Abs Immat Gran (auto) 0.07 K/mm3 H K/mm3 (0.00-0.031) Absolute Neuts (auto) 6.7 K/mm3 K/mm3 (1.3-6.7) Absolute Nucleated RBC 0.0 K/mm3 K/mm3 (0.0-0.012) Nucleated RBC % 0.0 % % (0.0-0.2) Sodium Potassium Chloride Carbon Dioxide Anion Gap BUN Creatinine Estim Creat Clear Calc Estimated GFR Glucose POC Capillary Glucose 132 mg/dl H mg/dl 147 mg/dl H mg/dl (65-105) (65-105) Calcium
[2021-12-21 14:10] VITALS: BP 137/50; PULSE 102; RESP 16; TEMP 37; O2SAT 88
[2021-12-21 16:38] LABS: Glucose Point of Care 109 mg/dl (65-105)
[2021-12-21 20:17] VITALS: O2SAT 91
[2021-12-21] MEDS: HYDROcodone/acetaminophen (*CRX) 5-325 MG TABLET 1 TAB PO (20:48)
[2021-12-21 21:02] VITALS: BP 143/56; PULSE 102; RESP 18; TEMP 37.2; O2SAT 92
[2021-12-21 21:39] LABS: Glucose Point of Care 124 mg/dl (65-105)
[2021-12-21 23:03] VITALS: O2SAT 93
[2021-12-21] MEDS: SODIUM CHLORIDE 0.9% IV 1,000 ML 75 ML IV CONT (23:42)
[2021-12-22] VITALS (14 sets, daily range): BP systolic 125–160; BP diastolic 54–63; PULSE 92–104; RESP 12–20; TEMP 36.6–38.4; O2SAT 92–100
[2021-12-22 05:32] LABS: Basophils Percent Auto 0.5 % (0.2-1.2); Eosinophils Absolute Auto 0.7 K/mm3 (0-0.3); Eosinophils Percent Auto 8.6 % (0-4.4); Hematocrit 24.8 % (37.0-47.0); Hemoglobin 7.7 g/dL (12.0-15.0); Immature Granulocyte Absolute 0.04 K/mm3 (0.00-0.031); Immature Granulocyte Percent A 0.5 % (0-0.5); Lymphocytes Percent Auto 14.4 % (18.3-44.2); Mean Corpuscular Hemoglobin 27.5 pg (26-34); Mean Corpuscular Volume 88.6 fl (80-100); Mean Platelet Volume 9.1 fl (7.4-10.4); Monocytes Absolute Auto 0.5 K/mm3 (0.1-0.6); Monocytes Percent Auto 6.4 % (2.6-8.5); Neutrophils Absolute Auto 5.3 K/mm3 (1.3-6.7); Neutrophils Percent Auto 69.6 % (45.5-73.1); Platelet Count Result 185 k/mm3 (150-375); Red Cell Distribution Width 14.7 % (11.5-14.5); White Blood Count 7.7 K/mm3 (4.5-10.0)
[2021-12-22 05:42] LABS: Anion Gap 6 mmol/L (8-16); Blood Urea Nitrogen 21 mg/dL (7-17); Calcium 7.6 mg/dL (8.4-10.2); Carbon Dioxide 22 mmol/L (22-30); Chloride 112 mmol/L (98-107); Estimated CRCL calculation 18 ml/min; Estimated Glomerular Filt Rate 15; Glucose 99 mg/dL (65-110); Potassium 3.2 mmol/L (3.4-5.0); Sodium 140 mmol/L (137-145)
[2021-12-22 07:37] LABS: Glucose Point of Care 104 mg/dl (65-105)
--- NOTE | 2021-12-22 08:02 | PM.IMPN ---
Progress Note: A&P Assessment and Plan (1) Left ureteral stone: Code(s): N20.1 - Calculus of ureter Status: Acute Assessment and Plan: -noted on CT abd/pelv -POD #2 s/p Cystoscopy, left retrograde pyelogram, left stent placement and abdullahi catheter insertion -back to OR today for cystoscopy, left ureteroscopy with stone extraction, left stent exchange, possible holmium laser, left retrograde pyelogram -further management per urology (2) Urinary tract infection: Code(s): N39.0 - Urinary tract infection, site not specified Status: Acute Assessment and Plan: -UA w/ 1+ leukocytes, 21-30 WBCs -continue rocephin -urine culture negative, however 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 -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, continue abx for now (3) Chronic kidney disease, stage IV (severe): Code(s): N18.4 - Chronic kidney disease, stage 4 (severe) Status: Chronic Assessment and Plan: -continue IVF -downtrending slowly now s/p stent placement -continue monitoring BMP (4) Diastolic dysfunction: Code(s): I51.89 - Other ill-defined heart diseases Status: Acute Assessment and Plan: -Appears euvolemic -Continue to monitor daily intake and output -caution with IVF (5) Chronic anemia: Code(s): D64.9 - Anemia, unspecified Status: Acute Assessment and Plan: -likely secondary to chronic kidney disease -Follow-up in outpatient setting (6) Obstructive sleep apnea on CPAP: Code(s): G47.33 - Obstructive sleep apnea (adult) (pediatric); Z99.89 - Dependence on other enabling machines and devices Status: Acute Assessment and Plan: -cpap available at night (7) Gastroesophageal reflux disease: Code(s): K21.9 - Gastro-esophageal reflux disease without esophagitis Status: Acute Assessment and Plan: -continue protonix (8) Non-insulin dependent type 2 diabetes mellitus: Code(s): E11.9 - Type 2 diabetes mellitus without complications Status: Acute Assessment and Plan: -low dose sliding scale, accuchecks, hypoglycemic protocol Subjective Date/time seen: 12/22/21 08:02 Interval history: 71-year-old female with past significant for chronic kidney disease, diastolic heart failure, urolithiasis, anemia of chronic disease, type 2 diabetes mellitus known insulin dependent, gastroesophageal reflux disease, gout, admitted for urolithiasis. Pt was recently discharged after being treated for urolithiasis with stent placement and removal. POD #2 s/p ureteral stent. Going back to OR today for cystoscopy, left ureteroscopy with stone extraction, left stent exchange, possible holmium laser, left retrograde pyelogram. She feels okay. Had some back pain overnight. No pain today. Still intermittent nausea, no vomiting. No cp/sob. Review of Systems Review of Systems: All systems reviewed & are unremarkable except as noted in HPI and below Exam Narrative: General: No acute distress, non toxic appearing, morbidly obese Eyes: PERRL, no scleral icterus HEENT: NCAT, external ears normal, MMM Respiratory: No respiratory distress, Lungs CTA bilaterally, no wheezing Cardiovascular: RRR, no murmur Abdominal: Soft, nontender, non distended, no rebound or guarding Musculoskeletal: Moves all 4 extremities, trace non pitting edema Neurological: A/Ox3, speech clear, no facial asymmetry Skin: Warm, dry, no rashes Psychiatric: Normal affect, normal mood Objective Data Vital Signs Vital Signs: Vital Signs - 24 hr 12/21/21 14:10 12/21/21 20:17 12/21/21 21:02 Temperature 98.6 F 98.9 F Pulse Rate 102 H 102 H Respiratory Rate 16 18 Blood Pressure 137/50 L 143/56 H Pulse Oximetry 88 L 91 92 Oxygen Delivery Room Air 12/21/21 20:00 12/21/21 23:03 12/22/21 04:57 Temperature 98.1 F Pulse Rate 92 Respirator
[2021-12-22] MEDS: amLODIPine BESYLATE 5 MG TABLET PO (08:06)
[2021-12-22] MEDS: PANTOPRAZOLE 40 MG TABLET PO ×2 (08:07→18:47)
[2021-12-22] MEDS: HEPARIN SODIUM 5,000 UNITS/ML VIAL 5000 UNITS SUB-Q ×2 (08:07→20:30)
[2021-12-22] MEDS: ASCORBIC ACID 500 MG TABLET PO (08:07)
[2021-12-22] MEDS: allopurinoL 300 MG TABLET PO (08:07)
[2021-12-22] MEDS: POTASSIUM CHLORIDE 20 MEQ TABLET 40 MEQ PO (08:07)
[2021-12-22 11:29] LABS: Glucose Point of Care 125 mg/dl (65-105)
--- NOTE | 2021-12-22 13:29 | WPDHPUPDATE1 ---
History and Physical Update Update Date/Time: 12/22/21 13:29 History and Physical has been reviewed, including an updated exam of the patient. There are NO changes in the patient's condition. Risks, benefits, and alternatives have been discussed and questions answered. Patient agrees to proceed with procedure. Proceed with cysto, left retrograde, left ureteroscopy with stone extraction, stent exchange.
[2021-12-22] MEDS: LIDOCAINE HCL 2% GEL UROJET 10 ML PKG MUCOUS MEM (14:48)
--- NOTE | 2021-12-22 14:51 | WPDCDIQUERY2 ---
CDI Query Clarification Request ?12/21 Urologist documented: Sepsis: ?Code(s): A41.9 - Sepsis, unspecified organism ?Status:?Acute ?Assessment and Plan: Urine Culture is negative, patient is stable. A repeat urine culture was done today, but I expect with a stent for her urine to look abnormal. 12/20 Hospitalist documented: Urinary tract infection: ?Code(s): N39.0 - Urinary tract infection, site not specified ?Status:?Acute ?Assessment and Plan: -UA w/ 1+ leukocytes, 21-30 WBCs -continue rocephin -follow urine culture Initial Vitals signs and labs are as follows, WBC 19.3, T 101.8, P 126, R 24, Creatinine 3.6 Please clarify if Diagnosis of Sepsis, has been ruled in, ruled out or unable to determine. If agree with diagnosis, (Sepsis), please add to problem list with any pertinent information added to treatment plan.
--- NOTE | 2021-12-22 14:58 | P.OP_ITS ---
Procedure Note - Detailed Date of Procedure 12/22/21 Pre-op Diagnosis ,Obstructing Left Ureteral Stones x6 with 1 renal calculi Post-op Diagnosis Same Procedure Performed Cystoscopy, left ureteroscopy with stone extraction of 6 stones, and 1 renal stone, left stent exchange 4.8 [place] contour Surgeon Ulises Enciso MD Anesthesia General Description of Procedure Patient is taken to the operative suite correctly identified. Once anesthesia was obtained she was placed in dorsal lithotomy position and prepped and draped usual sterile fashion. Twenty-two [place] scope inserted the bladder the stent was grasped and removed. Wire had been inserted up to the renal pelvis. Rigid ureteral scope was then inserted. Six stones were then grasped using an escape basket individually. A mini flexible scope was then inserted although up to the kidney. Another stone measuring 4 mm was retrieved and sent for analysis. A 4.8 [place] contour stent was then placed with the proximal end coiled in the renal pelvis and distal in the bladder. 2% viscous lidocaine was inserted urethra patient is taken recovery stable condition. She will be transferred back to the floor and can be discharged when medically stable. She will follow up in a week's time for stent removal. Urine Output 175 Drains Yes Packing No Pathology Yes Complications No immediate complications Condition Stable Disposition PACU
[2021-12-22] MEDS: SODIUM CHLORIDE 0.9% IV 500 ML 30 ML IV CONT (15:04)
[2021-12-22 15:17] LABS: Glucose Point of Care 94 mg/dl (65-105)
[2021-12-22] MEDS: HYDROmorphone HCL INJ (*CRX) 1 MG/ML SYR 0.5 MG IV PUSH (16:21)
[2021-12-22 16:31] LABS: Glucose Point of Care 106 mg/dl (65-105)
[2021-12-22] MEDS: HYDROcodone/acetaminophen (*CRX) 5-325 MG TABLET 1 TAB PO (20:31)
[2021-12-22] MEDS: SODIUM CHLORIDE 0.9% IV 1,000 ML 75 ML IV CONT (20:57)
[2021-12-22 21:04] LABS: Glucose Point of Care 117 mg/dl (65-105)
[2021-12-23 03:45] VITALS: PULSE 91; O2SAT 97
[2021-12-23 05:34] LABS: Basophils Percent Auto 0.5 % (0.2-1.2); Eosinophils Absolute Auto 0.7 K/mm3 (0-0.3); Eosinophils Percent Auto 9.3 % (0-4.4); Hematocrit 26.2 % (37.0-47.0); Hemoglobin 8.3 g/dL (12.0-15.0); Immature Granulocyte Absolute 0.06 K/mm3 (0.00-0.031); Immature Granulocyte Percent A 0.8 % (0-0.5); Lymphocytes Absolute Auto 1.06 K/mm3 (0.9-3.2); Lymphocytes Percent Auto 13.4 % (18.3-44.2); Mean Corpuscular HGB Conc 31.7 g/dl (32-36); Mean Corpuscular Hemoglobin 27.6 pg (26-34); Monocytes Absolute Auto 0.6 K/mm3 (0.1-0.6); Monocytes Percent Auto 7.3 % (2.6-8.5); Neutrophils Absolute Auto 5.5 K/mm3 (1.3-6.7); Neutrophils Percent Auto 68.7 % (45.5-73.1); Platelet Count Result 207 k/mm3 (150-375); Red Blood Count 3.01 M/mm3 (4.2-5.4); Red Cell Distribution Width 14.5 % (11.5-14.5); White Blood Count 7.9 K/mm3 (4.5-10.0)
[2021-12-23 05:46] LABS: Anion Gap 7 mmol/L (8-16); Blood Urea Nitrogen 17 mg/dL (7-17); Calcium 7.7 mg/dL (8.4-10.2); Carbon Dioxide 23 mmol/L (22-30); Chloride 110 mmol/L (98-107); Estimated CRCL calculation 21 ml/min; Estimated Glomerular Filt Rate 19; Glucose 133 mg/dL (65-110); Potassium 3.3 mmol/L (3.4-5.0); Sodium 140 mmol/L (137-145)
[2021-12-23 06:00] VITALS: BP 133/53; PULSE 94; RESP 18; TEMP 36.8; O2SAT 95
[2021-12-23 07:40] LABS: Glucose Point of Care 137 mg/dl (65-105)
[2021-12-23 08:24] VITALS: BP 127/60; PULSE 98; RESP 16; TEMP 37; O2SAT 94
[2021-12-23] MEDS: amLODIPine BESYLATE 5 MG TABLET PO (08:25)
[2021-12-23] MEDS: ASCORBIC ACID 500 MG TABLET PO (08:25)
[2021-12-23] MEDS: HEPARIN SODIUM 5,000 UNITS/ML VIAL 5000 UNITS SUB-Q (08:25)
[2021-12-23] MEDS: PANTOPRAZOLE 40 MG TABLET PO (08:26)
[2021-12-23] MEDS: POTASSIUM CHLORIDE 20 MEQ TABLET 40 MEQ PO (08:26)
[2021-12-23] MEDS: allopurinoL 300 MG TABLET PO (08:26)
[2021-12-23 08:30] VITALS: O2SAT 94
[2021-12-23] MEDS: SODIUM CHLORIDE 0.9% IV 1,000 ML 75 ML IV CONT (10:08)
--- NOTE | 2021-12-23 11:01 | PM.DS ---
DS: Admitting Diagnosis Discharge Date 12/23/21 Admitting Diagnosis ureteral stone DS: Discharge Diagnosis Discharge Diagnosis (1) Left ureteral stone: Code(s): N20.1 - Calculus of ureter Status: Acute Assessment and Plan: -noted on CT abd/pelv -POD #3 s/p Cystoscopy, left retrograde pyelogram, left stent placement and abdullahi catheter insertion -back to OR yesterday for cystoscopy, left ureteroscopy with stone extraction of 6 stones, and 1 renal stone, left stent exchange 4.8 [place] contour -per urology pt stable for discharge, will call office for follow up appt (2) Urinary tract infection: Code(s): N39.0 - Urinary tract infection, site not specified Status: Acute Assessment and Plan: -UA w/ 1+ leukocytes, 21-30 WBCs -received rocephin x4 days -urine culture negative, however 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 -will send home with another 6 days of abx therapy (3) Chronic kidney disease, stage IV (severe): Code(s): N18.4 - Chronic kidney disease, stage 4 (severe) Status: Chronic Assessment and Plan: -tx w/ IVF -improved now s/p stent placement -2.5 today which is near patient's baseline (4) Diastolic dysfunction: Code(s): I51.89 - Other ill-defined heart diseases Status: Acute Assessment and Plan: -Appears euvolemic -caution with IVF (5) Chronic anemia: Code(s): D64.9 - Anemia, unspecified Status: Acute Assessment and Plan: -likely secondary to chronic kidney disease -Follow-up in outpatient setting (6) Obstructive sleep apnea on CPAP: Code(s): G47.33 - Obstructive sleep apnea (adult) (pediatric); Z99.89 - Dependence on other enabling machines and devices Status: Acute Assessment and Plan: -cpap available at night (7) Gastroesophageal reflux disease: Code(s): K21.9 - Gastro-esophageal reflux disease without esophagitis Status: Acute Assessment and Plan: -continued protonix (8) Non-insulin dependent type 2 diabetes mellitus: Code(s): E11.9 - Type 2 diabetes mellitus without complications Status: Acute Assessment and Plan: -low dose sliding scale, accuchecks, hypoglycemic protocol (9) Sepsis: Code(s): A41.9 - Sepsis, unspecified organism Status: Acute Assessment and Plan: -pt met sepsis criteria on arrival with WBC 19.3, T 101.8, HR 126, and RR 24 -pt treated w/ IV abx and IVF -vitals have stabilized, will dc home on abx as above DS: Summary Hospital Course Reason for hospitalization: 71-year-old female with past significant for chronic kidney disease, diastolic heart failure, urolithiasis, anemia of chronic disease, type 2 diabetes mellitus known insulin dependent, gastroesophageal reflux disease, gout, admitted for? urolithiasis.? Pt was recently discharged after being treated for urolithiasis with stent placement and removal. Please see HPI for further details. Hospital Course: Please see above for details of hospital course. Status at Discharge Cognitive/behavioral status at discharge: stable Functional status at discharge: independent ambulation Overall status at discharge: patient is progressing back to baseline Time Spent with Patient Time attestation: Total time spent providing and/or coordinating discharge services: 35 Time spent: Greater than 30 minutes Exam Narrative: General: No acute distress, non toxic appearing, morbidly obese Eyes: PERRL, no scleral icterus HEENT: NCAT, external ears normal, MMM Respiratory: No respiratory distress, Lungs CTA bilaterally, no wheezing Cardiovascular: RRR, no murmur Abdominal: Soft, nontender, non distended, no rebound or guarding Musculoskeletal: Moves all 4 extremities, trace non pitting edema Neurological: A/Ox3, speech clear, no facial as
[2021-12-23 11:33] LABS: Glucose Point of Care 141 mg/dl (65-105)
--- NOTE | 2021-12-23 15:07 | WPDUROPN2 ---
Progress Note: A&P Assessment and Plan (1) Left ureteral stone: Code(s): N20.1 - Calculus of ureter Status: Acute Assessment and Plan: Resolved, will f/u next week for stent removal. (2) Sepsis: Code(s): A41.9 - Sepsis, unspecified organism Status: Acute Assessment and Plan: Urine culture negative. Subjective Subjective Date/Time Seen: 12/23/21 15:07 Patient doing very well s/p Cystoscopy, left ureteroscopy with stone removal x 6, left stent exchange, left retrograde pyelogram. Creatinine is now at baseline of 2.50 She is tolerating her stent, diet and activity better. Post Op day: 1 Review of Systems Cardiovascular: Cardiovascular: Denies chest pain Gastrointestinal: Gastrointestinal: Denies abdominal pain, Denies nausea and Denies vomiting Genitourinary: Genitourinary: Denies hematuria, Denies dysuria, Denies pelvic pain, Denies flank pain, Denies urinary incontinence, Denies urinary hesitancy and Denies urinary urgency Exam Const: General: cooperative and alert Resp: Effort & Inspection: normal respiratory effort Cardio: Rate: regular rate GI: GI Palp: Yes Soft to palpation and No Tenderness to palpation present (GI) : General: Yes no CVA tenderness Extrem: Right lower extremity: no edema Left lower extremity: no edema Objective Data Vital Signs Vital Signs: Vital Signs - 24 hr 12/22/21 15:30 12/22/21 15:45 12/22/21 16:10 Temperature 100.0 F H 98 F Pulse Rate 100 95 97 Respiratory Rate 18 12 16 Blood Pressure 143/61 H 130/60 137/55 L Pulse Oximetry 94 94 96 Oxygen Delivery Room Air Nasal Cannula Oxygen Flow Rate 2 Fraction of Inspired Oxygen 12/22/21 16:25 12/22/21 16:55 12/22/21 18:04 Temperature 98 F 97.9 F 98 F Pulse Rate 94 93 97 Respiratory Rate 16 16 16 Blood Pressure 143/56 H 127/54 L 133/57 L Pulse Oximetry 96 98 92 Oxygen Delivery Oxygen Flow Rate Fraction of Inspired Oxygen 12/22/21 20:00 12/22/21 22:00 12/22/21 23:20 Temperature 97.9 F Pulse Rate 97 99 99 Respiratory Rate 16 20 Blood Pressure 138/60 Pulse Oximetry 92 98 97 Oxygen Delivery Nasal Cannula BiPAP Oxygen Flow Rate 2 Fraction of Inspired Oxygen 30 06/07/22 21:08 12/23/21 03:45 12/23/21 06:00 Temperature 98.2 F Pulse Rate 91 94 Respiratory Rate 18 Blood Pressure 133/53 L Pulse Oximetry 92 97 95 Oxygen Delivery Nasal Cannula BiPAP Oxygen Flow Rate 2 Fraction of Inspired Oxygen 12/23/21 08:24 12/23/21 08:30 Temperature 98.6 F Pulse Rate 98 Respiratory Rate 16 Blood Pressure 127/60 Pulse Oximetry 94 94 Oxygen Delivery Room Air Oxygen Flow Rate Fraction of Inspired Oxygen Intake/Output Intake/Output: Intake & Output 12/20/21 12/21/21 12/22/21 12/23/21 23:59 23:59 23:59 23:59 Intake Total 2715 3670 1600 2070 Output Total 1025 2450 2475 Balance 1690 1220 -875 2070 Meds/Results Radiology Results: ITS Impressions Abdomen/Pelvis CT 12/19/21 20:17 IMPRESSION: Multiple left ureteral stones with persistent moderate left obstructive uropathy. Abdomen X-Ray 12/19/21 20:40 IMPRESSION: CT proven renal and ureteral calcifications are not visualized. Retrograde Pyelogram 12/20/21 17:49 IMPRESSION: Fluoroscopic documentation of left retrograde pyelography and stent placement. Chest X-Ray 12/21/21 08:27 IMPRESSION: 1. Mild atelectasis in the mid and lower lung zones. Ureter Stent X-Ray 12/22/21 15:41 IMPRESSION: 1. Left internal ureteral stent placement. Please refer to real-time procedural findings for details. Labs Labs: Laboratory Results - last 24 hr 12/22/21 12/22/21 12/22/21 15:13 16:23 20:28 WBC RBC Hgb Hct MCV MCH MCHC RDW Plt Count MPV Immature Gran % (Auto) Neut % (Auto) Lymph % (Auto) Union % (Auto) Eos % (Auto) Baso % (Auto) Lymph # (Auto) Union # (Auto)
--- NOTE | 2022-01-08 09:51 | OP_ITS ---
DATE OF PROCEDURE: 12/20/2021 PREOPERATIVE DIAGNOSIS: Left hydronephrosis, renal colic, and urosepsis. POSTOPERATIVE DIAGNOSIS: Left hydronephrosis, renal colic, and urosepsis. PROCEDURE PERFORMED: Cystoscopy, left retrograde pyelogram, left stent placement, Batista catheter insertion. ANESTHESIA: LMA with local. ESTIMATED BLOOD LOSS: None. INDICATIONS FOR PROCEDURE: Ms. Mayo is a 71-year-old female who presented to the emergency room last night with worsening left flank pain and fevers, found to have left hydronephrosis with small calculi within the ureter due to the worsening hydro despite having a stent removed just 2 days ago. Was elected to go with re-insertion of the stent into the left collecting system that now showing signs of pyelonephritis. DESCRIPTION OF PROCEDURE: Time-out was performed. Consent was obtained. The patient was already on antibiotics. Brought to the operating room, placed in dorsal lithotomy position. She was prepped and draped in sterile fashion. Viscous lidocaine jelly was introduced in the urethra for local anesthetic. A 20-Georgian cystoscope was inserted. The bladder was thoroughly inspected. No evidence of any tumors or stones. There was mild edema at the left ureteral orifice, which was cannulated with a 5-Georgian angiographic. Left retrograde pyelogram revealed mild distal hydronephrosis, but moderate hydronephrosis at the pelvic brim. A Glidewire was then placed into the upper pole of the kidney and over that wire, a 6-Georgian variable stent was placed over the wire with a good coil in the renal pelvis as well as the bladder. Immediately after the stent was placed, the left collecting system started draining pus and at that point, we elected to place a 16-Georgian Batista catheter into the bladder with 10 cc of Batista catheter brim connected to gravity drainage in order to aid in drainage from the collecting system. The patient tolerated the procedure well. No complications. DISPOSITION: Stable to PACU. D I MT: Nicolasa
== END 2021-12-23 13:25 | disposition home or self-care (01) | DRG 853 ==
LOC: ANHED 21:01 → ANH2MED 21:31
PROVIDERS: Emergency Medicine; Urology; Admitting Provider Internal Medicine; Emergency Provider General Practice; PCP Family Medicine; Visit Provider Physician Assistant
PROC: 0T778DZ Dilation of Left Ureter with Intraluminal Device, Via Natural or Artificial Opening Endoscopic (ICD-10-PCS; CPT 52352; principal; 2021-12-20 10:30)
DX: A41.9 Sepsis, unspecified organism (principal); I50.31 Acute diastolic (congestive) heart failure; N18.4 Chronic kidney disease, stage 4 (severe); I13.0 Hypertensive heart and chronic kidney disease with heart failure and stage 1 through stage 4 chronic kidney disease, or unspecified chronic kidney disease; N20.1 Calculus of ureter; N13.6 Pyonephrosis; N17.9 Acute kidney failure, unspecified; Z20.822 Contact with and (suspected) exposure to COVID-19; E11.22 Type 2 diabetes mellitus with diabetic chronic kidney disease; J45.909 Unspecified asthma, uncomplicated; D63.8 Anemia in other chronic diseases classified elsewhere; E78.00 Pure hypercholesterolemia, unspecified; E66.01 Morbid (severe) obesity due to excess calories; K21.9 Gastro-esophageal reflux disease without esophagitis; Z87.891 Personal history of nicotine dependence; G47.33 Obstructive sleep apnea (adult) (pediatric); L40.9 Psoriasis, unspecified; Z82.49 Family history of ischemic heart disease and other diseases of the circulatory system; Z80.6 Family history of leukemia; N13.9 Obstructive and reflux uropathy, unspecified; Z80.0 Family history of malignant neoplasm of digestive organs; Z79.51 Long term (current) use of inhaled steroids; Z79.899 Other long term (current) drug therapy; Z99.89 Dependence on other enabling machines and devices
CPT/HCPCS: 36415; 71045; 74018; 74176; 74420; 80048; 80053; 81001; 82365; 82948; 83605; 83735; 85025; 85610; 85730; 87040; 87086; 87088; 88300; 93005; 94002; 96361; 96365; 96367; 96372; 96375; 96376; 99285; A9270; C1769; C1887; C2617; C9803; G0378; J0131; J0696; J1170; J1644; J2001; J2250; J2405; J2704; J3010; J3475; J7030; J7040; J7120; Q9966; U0003; U0005

== ENCOUNTER 2021-12-31 11:51 | Outpatient (CLI) | payer MEDICARE, MEDICAID, SELFPAY ==
[2021-12-31 19:00] LABS: Basophils Absolute Auto 0.1 K/mm3 (0.0-0.1); Basophils Percent Auto 0.5 % (0.2-1.2); Eosinophils Absolute Auto 0.5 K/mm3 (0-0.3); Eosinophils Percent Auto 4.8 % (0-4.4); Hematocrit 32.7 % (37.0-47.0); Hemoglobin 9.9 g/dL (12.0-15.0); Immature Granulocyte Absolute 0.15 K/mm3 (0.00-0.031); Immature Granulocyte Percent A 1.4 % (0-0.5); Lymphocytes Absolute Auto 1.95 K/mm3 (0.9-3.2); Lymphocytes Percent Auto 17.7 % (18.3-44.2); Mean Corpuscular HGB Conc 30.3 g/dl (32-36); Mean Corpuscular Hemoglobin 27.4 pg (26-34); Mean Corpuscular Volume 90.6 fl (80-100); Monocytes Absolute Auto 0.6 K/mm3 (0.1-0.6); Monocytes Percent Auto 5.7 % (2.6-8.5); Neutrophils Absolute Auto 7.7 K/mm3 (1.3-6.7); Neutrophils Percent Auto 69.9 % (45.5-73.1); Platelet Count Result 250 k/mm3 (150-375); Red Blood Count 3.61 M/mm3 (4.2-5.4); Red Cell Distribution Width 15.6 % (11.5-14.5)
[2021-12-31 20:27] LABS: Alanine Aminotransferase 12 U/L (6-35); Alkaline Phosphatase 91 U/L (38-126); Anion Gap 7 mmol/L (8-16); Aspartate Amino Transferase 19 U/L (14-36); Bilirubin,Total 0.4 mg/dL (0.2-1.3); Blood Urea Nitrogen 16 mg/dL (7-17); Calcium 8.5 mg/dL (8.4-10.2); Carbon Dioxide 27 mmol/L (22-30); Chloride 105 mmol/L (98-107); Estimated Glomerular Filt Rate 30; Glucose 145 mg/dL (65-110); Potassium 3.8 mmol/L (3.4-5.0); Sodium 139 mmol/L (137-145)
[2021-12-31 20:49] LABS: Hemoglobin A1C 5.9 % (<5.7)
== END 2021-12-31 11:52 | disposition home or self-care (01) ==
PROVIDERS: PCP Family Medicine; Visit Provider Family Medicine
DX: D64.9 Anemia, unspecified (principal); N18.9 Chronic kidney disease, unspecified; S76.319A Strain of muscle, fascia and tendon of the posterior muscle group at thigh level, unspecified thigh, initial encounter; R60.0 Localized edema; E11.9 Type 2 diabetes mellitus without complications
CPT/HCPCS: 36415; 80053; 83036; 85025

== ENCOUNTER 2022-01-13 12:58 | Outpatient (CLI) | payer MEDICARE, MEDICAID, SELFPAY ==
--- NOTE | ~2022-01-13 | CT_ITS ---
EXAMINATION: CT lung screening DATE: 01/13/2022 13:31 INDICATION: Personal history of nicotine dependence, prior smoker with 100 pack year history TECHNIQUE: Computed tomography (CT) of the chest was performed without intravenous contrast. The dose -length product (DLP) was 193.54 mGy-cm. 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 COMPARISON: 01/13/2021 FINDINGS: There are stable 5 mm and 3 mm nodule of the left lower lobe. No new pulmonary nodules are identified. The lungs are free of acute opacities. No pleural effusion or pneumothorax. Calcified pul monary nodules and calcified left hilar lymph nodes are consistent with old granulomatous disease. Th e heart size is normal. There is calcified coronary artery atherosclerosis. There are bridging osteop hytes at multiple levels in the spine, consistent with diffuse idiopathic skeletal hyperostosis (DISH ). The gallbladder is surgically absent. Punctate calcifications in otherwise normal appearing liver and spleen likely represent healed granulomatous disease. IMPRESSION: 1. Lung-RADS category 2: Benign appearance or behavior. Continue annual screening with noncontrast lo w-dose chest CT in 12 months. Reviewed, dictated and finalized at location A. IMPRESSION: 1. Lung-RADS category 2: Benign appearance or behavior. Continue annual screeni ng with noncontrast low-dose chest CT in 12 months.
== END 2022-01-13 12:59 | disposition home or self-care (01) ==
PROVIDERS: PCP Family Medicine; Visit Provider Nurse Practitioner Family
DX: Z12.2 Encounter for screening for malignant neoplasm of respiratory organs (principal); Z87.891 Personal history of nicotine dependence
CPT/HCPCS: 71271

== ENCOUNTER 2022-02-11 14:02 | Outpatient (CLI) | payer MEDICARE, MEDICAID, SELFPAY ==
[2022-02-11 19:42] LABS: Erythrocyte Sedimentation Rate 86 mm/hr (0-20)
[2022-02-11 20:01] LABS: Creatinine Urine 105.2 mg/dL; Total Protein Urine Random 14 mg/dL; Ur Ttl Prot Creatinine Ratio 0.13 mg/mg (0-0.20)
[2022-02-11 20:08] LABS: Parathyroid Intact 72.2 pg/mL (7.5-53.5); Vitamin D 25 Hydroxy 48.2 ng/mL
[2022-02-11 20:13] LABS: Albumin Level 4.4 g/dL (3.5-5.1); Anion Gap 12 mmol/L (8-16); Blood Urea Nitrogen 21 mg/dL (7-17); CRP 0.9 mg/dL (<1.0); Calcium 9.2 mg/dL (8.4-10.2); Carbon Dioxide 29 mmol/L (22-30); Chloride 100 mmol/L (98-107); Estimated Glomerular Filt Rate 28; Glucose 106 mg/dL (65-110); Potassium 3.2 mmol/L (3.4-5.0); Sodium 141 mmol/L (137-145)
== END 2022-02-11 14:03 | disposition home or self-care (01) ==
PROVIDERS: PCP Family Medicine; Referring Provider Internal Medicine; Visit Provider Internal Medicine Nephrology
DX: R70.0 Elevated erythrocyte sedimentation rate (principal); R80.8 Other proteinuria; E11.29 Type 2 diabetes mellitus with other diabetic kidney complication; I12.9 Hypertensive chronic kidney disease with stage 1 through stage 4 chronic kidney disease, or unspecified chronic kidney disease; M19.90 Unspecified osteoarthritis, unspecified site; N18.4 Chronic kidney disease, stage 4 (severe)
CPT/HCPCS: 36415; 80069; 82306; 82570; 83970; 84156; 85652; 86140

== ENCOUNTER 2022-04-30 09:50 | Outpatient (CLI) | payer MEDICARE, MEDICAID, SELFPAY ==
[2022-04-30 21:48] LABS: Hemoglobin A1C 6.7 % (<5.7)
== END 2022-04-30 09:51 | disposition home or self-care (01) ==
LOC: ANHBWCLAB 09:53
PROVIDERS: PCP Family Medicine; Visit Provider Family Medicine
DX: E11.9 Type 2 diabetes mellitus without complications (principal); M10.9 Gout, unspecified; E34.9 Endocrine disorder, unspecified
CPT/HCPCS: 36415; 83036

== ENCOUNTER 2022-07-22 12:13 | Outpatient (CLI) | payer MEDICARE, MEDICAID, SELFPAY ==
[2022-07-22 21:06] LABS: Albumin Level 4.4 g/dL (3.5-5.1); Anion Gap 7 mmol/L (8-16); Blood Urea Nitrogen 19 mg/dL (7-17); Calcium 9.1 mg/dL (8.4-10.2); Carbon Dioxide 29 mmol/L (22-30); Chloride 99 mmol/L (98-107); Estimated Glomerular Filt Rate 25; Glucose 124 mg/dL (65-110); Phosphorus 3.6 mg/dL (2.5-4.5); Potassium 3.5 mmol/L (3.4-5.0); Sodium 135 mmol/L (137-145)
[2022-07-22 22:36] LABS: Total Protein Urine Random 15 mg/dL
== END 2022-07-22 12:14 | disposition home or self-care (01) ==
PROVIDERS: PCP Family Medicine; Visit Provider Internal Medicine Nephrology
DX: I12.9 Hypertensive chronic kidney disease with stage 1 through stage 4 chronic kidney disease, or unspecified chronic kidney disease (principal); N20.0 Calculus of kidney; E11.29 Type 2 diabetes mellitus with other diabetic kidney complication; N18.4 Chronic kidney disease, stage 4 (severe)
CPT/HCPCS: 36415; 80069; 82570; 84156

== ENCOUNTER 2022-08-30 14:40 | Outpatient (CLI) | payer MEDICARE, MEDICAID, SELFPAY ==
[2022-08-30 19:24] LABS: CRP 0.8 mg/dL (<1.0); Calcium 9.2 mg/dL (8.4-10.2); Uric Acid 4.5 mg/dL (2.5-7.5)
[2022-08-30 19:33] LABS: Parathyroid Intact 56.8 pg/mL (7.5-53.5)
[2022-08-30 19:57] LABS: Hemoglobin A1C 6.4 % (<5.7)
== END 2022-08-30 14:41 | disposition home or self-care (01) ==
PROVIDERS: PCP Family Medicine; Visit Provider Internal Medicine
DX: N18.4 Chronic kidney disease, stage 4 (severe) (principal); E11.22 Type 2 diabetes mellitus with diabetic chronic kidney disease; M10.9 Gout, unspecified; E34.9 Endocrine disorder, unspecified
CPT/HCPCS: 36415; 82310; 83036; 83970; 84550; 86140

== ENCOUNTER 2022-09-08 00:09 | Day surgery (SDC) | payer MEDICARE, MEDICAID, SELFPAY ==
[2022-08-25 13:23] VITALS: BMI 36.6
[2022-09-08 09:05] VITALS: BP 141/65; PULSE 99; RESP 18; TEMP 36.8; O2SAT 97; BMI 36.8
--- NOTE | 2022-09-08 09:22 | WPDANESEPPF ---
Anes - Initial Pre Proc Eval Procedure: Operation Date: 09/08/22 10:30 Proposed Procedures p Esophagogastroduodenoscopy - Pramod Miller MD Date/Time: 09/08/22 09:22 Surgeon: Pramod Miller MD Pre Op Diagnosis: an's Esophagus Patient Data Age: 72 Gender: F Height: 1.57 m Weight: 91.4 kg Last Vital Signs Temp 98.2 F 09/08/22 09:05 Pulse 99 09/08/22 09:05 Resp 18 09/08/22 09:05 BP 141/65 H 09/08/22 09:05 Pulse Ox 97 09/08/22 09:05 O2 Del Method Room Air 09/08/22 09:05 Allergies Allergy/AdvReac Type Severity Reaction Status Date / Time tramadol Allergy Severe Hives Verified 09/08/22 09:11 atorvastatin AdvReac Severe Nausea and Verified 09/08/22 09:11 Vomiting pravastatin AdvReac Intermediate Nausea and Verified 09/08/22 09:11 Vomiting budesonide AdvReac Mild Muscle Verified 09/08/22 09:11 Spasms formoterol AdvReac Mild Muscle Verified 09/08/22 09:11 Spasms Home Medications Medication Instructions Recorded Confirmed Type albuterol sulfate 90 mcg/actuation 1 inh inhalation QID PRN 05/17/19 09/08/22 History aerosol inhaler (ProAir HFA) Respiratory Distress Slofed 60 60 mg PO DAILY 12/30/20 09/08/22 History cholecalciferol (vitamin D3) 1,250 1,250 mcg PO WEEKLY 07/02/21 09/08/22 History mcg (50,000 unit) capsule allopurinol 300 mg tablet 300 mg PO DAILY 10/27/21 09/08/22 History diclofenac sodium 1 % topical gel 4 g topical QID #100 grams 12/31/21 09/08/22 Rx (Voltaren Arthritis Pain) ascorbate calcium (vitamin C) 500 500 mg PO DAILY 02/16/22 09/08/22 History mg tablet omega-3 fatty acids 1,000 mg 1,000 mg PO DAILY 02/16/22 09/08/22 History capsule blood sugar diagnostic (Accu-Chek #100 ea 04/13/22 09/08/22 Rx Iwona Plus test strips) amlodipine 5 mg tablet See Rx Instructions .Route 05/04/22 09/08/22 Rx .COMPLEX #90 tabs betamethasone dipropionate 0.05 % 1 applic topical BID PRN rash #45 05/04/22 09/08/22 Rx topical cream grams semaglutide 1 mg/dose (4 mg/3 mL) 1 mg (0.75 mL) subcut WEEKLY 3 07/26/22 09/08/22 Rx subcutaneous pen injector (Ozempic) months #9.75 mL omeprazole 40 mg capsule,delayed See Rx Instructions .Route 08/02/22 09/08/22 Rx release .COMPLEX #30 caps topiramate 25 mg tablet 25 mg PO DAILY #90 tabs 08/30/22 09/08/22 Rx Patient hx anesthesia problems: none Family hx anesthesia problems: none Results Review: All pre-operative results and documents have been reviewed as part of the pre-operative evaluation. [facility] Past Medical History Medical History Anemia Asthma Chronic kidney disease, stage IV (severe) Chronic neck pain MRI of cervical spine demonstrated [id number] cervical spondylosis C5 through C7, left foraminal narrowing and moderate right foraminal narrowing C5-C6, spinal stenosis with minimal flattening along the ventral cord C5 through C7. Claustrophobia Degenerative arthritis of left knee Diastolic dysfunction Gastroesophageal reflux disease Generalized osteoarthritis of multiple sites Gout Hypercholesterolemia Hypertension Incontinence Increased PTH level Iron deficiency anemia Kidney disease Morbid obesity Non-insulin dependent type 2 diabetes mellitus Obstructive sleep apnea on CPAP Psoriasis Screening for breast cancer Wears glasses Surgical History Surgical History History of appendectomy History of bilateral cataract extraction History of bilateral tubal ligation History of cholecystectomy History of colonoscopy History of esophageal dilatation History of lithotripsy History of total abdominal hysterectomy and bilateral salpingo-oophorectomy due to dysfunctional uterine bleeding Status post cystoscopy with ureteral stent placement Family History Family History Grandparent Acute my
[2022-09-08] MEDS: LACTATED RINGERS 1,000 ML 150 ML IV CONT (09:27)
[2022-09-08 09:30] LABS: Glucose Point of Care 157 mg/dl (65-105)
--- NOTE | 2022-09-08 09:57 | PM.HPGS ---
History of Present Illness History of Present Illness Consent: Risks, benefits, and alternatives have been discussed and questions answered. Patient agrees to proceed with procedure. Chief complaint: an's Esophagus Narrative: Edith Mayo is a 72 year old female with gerd and short segment an's on ppi, last egd 1 year ago Review of Systems Constitutional: Constitutional: Denies headache(s) and Denies weakness Eyes: Eyes: Denies blurry vision ENT: Reports Normal hearing present, Denies headache(s) and Denies neck pain Cardiovascular: Cardiovascular: Denies chest pain and Denies dyspnea Respiratory: Respiratory: Denies dyspnea Gastrointestinal: Gastrointestinal: Reports no additional gastrointestinal complaints Genitourinary: Genitourinary: Denies dysuria Musculoskeletal: Musculoskeletal: Denies neck pain Integumentary/Breasts: Skin/Breast: Denies dry skin Neurologic: Reports Normal hearing present, Denies headache(s) and Denies weakness Psychiatric: Psychiatric: Denies anxiety Endocrine: Endocrine: Denies change in body appearance Hematologic/Lymphatic: Hematologic/Lymphatic: Denies easy bleeding Allergic/Immunologic: Allergic/Immunologic: Denies urticaria PMF Past Medical History Medical History (Updated 09/08/22 @ 09:57 by Pramod Miller MD) Anemia Asthma An esophagus Chronic kidney disease, stage IV (severe) Chronic neck pain MRI of cervical spine demonstrated [id number] cervical spondylosis C5 through C7, left foraminal narrowing and moderate right foraminal narrowing C5-C6, spinal stenosis with minimal flattening along the ventral cord C5 through C7. Claustrophobia Degenerative arthritis of left knee Diastolic dysfunction Gastroesophageal reflux disease Generalized osteoarthritis of multiple sites Gout Hypercholesterolemia Hypertension Incontinence Increased PTH level Iron deficiency anemia Kidney disease Morbid obesity Non-insulin dependent type 2 diabetes mellitus Obstructive sleep apnea on CPAP Psoriasis Screening for breast cancer Wears glasses Surgical History Surgical History History of appendectomy History of bilateral cataract extraction History of bilateral tubal ligation History of cholecystectomy History of colonoscopy History of esophageal dilatation History of lithotripsy History of total abdominal hysterectomy and bilateral salpingo-oophorectomy due to dysfunctional uterine bleeding Status post cystoscopy with ureteral stent placement Family History Family History Grandparent Acute myocardial infarction Family history of malignant neoplasm Carcinoma of colon Mother Family history of liver disease Mother who in her late 50s of cirrhosis related to hepatitis C Father Leukemia father who in his 60s of leukemia. Sibling Heart disease Social History Social History Social History: She lives with a roommate in [place]. 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 She then went on disability when she had a nervous breakdown. She has 3 children who are all healthy. She is a former smoker and smoked at least 2 packs of cigarettes per day from the age of 17 to age 57. She rarely drinks alcohol and only in moderation. Surrogate decision maker: Aarti Gupta (daughter). Code status: Full code. Smoking packs per day: 3 Smoking cigarettes per day: 60.0 Years smoked: 40 Smoking pack-years: 120.00 Smoking status: Former smoker Tobacco type: cigarettes Alcohol intake: never Substance use: never Substance use type: does not use Lack of Transportation: No Lack of Food: Never True Current Housing: I Have Housing Concerned About Future Housing: No Difficulty Paying Gas/Electric Bills: No Difficulty Paying for Meds: No Curre
[2022-09-08 10:11] VITALS: BP 118/54; PULSE 92; RESP 18; O2SAT 98
[2022-09-08 10:21] VITALS: BP 139/65; PULSE 97; RESP 18; O2SAT 98
[2022-09-08 10:31] VITALS: BP 103/52; PULSE 89; RESP 18; O2SAT 98
== END 2022-09-08 10:35 | disposition home or self-care (01) ==
PROVIDERS: PCP Family Medicine; Visit Provider Internal Medicine Gastroenterology
PROC: 0DJ08ZZ Inspection of Upper Intestinal Tract, Via Natural or Artificial Opening Endoscopic (ICD-10-PCS; CPT 43235; principal; 2022-09-08 10:30)
DX: K22.70 Barrett's esophagus without dysplasia (principal); K21.9 Gastro-esophageal reflux disease without esophagitis; K44.9 Diaphragmatic hernia without obstruction or gangrene; K31.84 Gastroparesis; I13.10 Hypertensive heart and chronic kidney disease without heart failure, with stage 1 through stage 4 chronic kidney disease, or unspecified chronic kidney disease; E11.22 Type 2 diabetes mellitus with diabetic chronic kidney disease; N18.4 Chronic kidney disease, stage 4 (severe); E78.00 Pure hypercholesterolemia, unspecified; G47.33 Obstructive sleep apnea (adult) (pediatric); D50.9 Iron deficiency anemia, unspecified; L40.9 Psoriasis, unspecified; M10.9 Gout, unspecified; M47.812 Spondylosis without myelopathy or radiculopathy, cervical region; Z87.891 Personal history of nicotine dependence; Z79.51 Long term (current) use of inhaled steroids; Z79.899 Other long term (current) drug therapy
CPT/HCPCS: 43239; 82948; 88305; J2704; J7120

== ENCOUNTER 2022-09-20 08:00 | Outpatient (CLI) | payer MEDICARE, MEDICAID, SELFPAY ==
--- NOTE | 2022-09-20 14:17 | WPDPFTINT ---
PFT Procedure Performed PFT Procedure Performed Spirometry with Pre/Post Bronchodilator Plethysmography (Lung Vol) Flow Vol Loop PFT Interpretation This is a pulmonary function test with pre and post-bronchodilator spirometry and plethysmography. The test was performed and results interpreted in accordance with the 2019 and 2005 ATS/ERS Task Force guidelines respectively using the Global Lung Function Initiative-2012 reference equations. Patient demonstrated good effort and cooperation. Reproducibility criteria were met. The quality of the pre bronchodilator spirometry maneuver was Grade B and post bronchodilator spirometry maneuver was Grade A. Of note, the patient was unable to generate a strong inspiration and was and able to complete the DLCO testing. Patient was short of breath throughout the testing and stated that the albuterol medication makes her feel more tightness. Findings: Spirometry: the contour the inspiratory and expiratory flow tracing are normal. The pre bronchodilator FVC is 1.19 L, 45% predicted. The pre bronchodilator FEV1 is 0.92 L, 45% predicted. The pre bronchodilator FEV1: FVC ratio 77%. The post bronchodilator FVC is 1.67 L, Representing a 41% increase. The post bronchodilator FEV1 is 1.27 L, Representing a 39% increase. The post bronchodilator FEV1: FVC ratio 76%. Plethysmography: The total lung capacity is 3.25 L, 69% predicted. The functional residual capacity is 2.06 L, 77% predicted. The residual volume is 1.72 L, 83% predicted. Impression: There is a severe restrictive ventilatory abnormality. The spirometry is normal without evidence of an obstructive abnormality. There is significant improvement after inhaling a single dose of albuterol. There are no prior studies for comparison
== END 2022-09-20 08:01 | disposition home or self-care (01) ==
LOC: ANHPFT 08:01
PROVIDERS: PCP Family Medicine; Visit Provider Nurse Practitioner Family
DX: J45.909 Unspecified asthma, uncomplicated (principal); R94.2 Abnormal results of pulmonary function studies
CPT/HCPCS: 94060; 94726

== ENCOUNTER 2022-10-12 13:52 | Outpatient (CLI) | payer MEDICARE, MEDICAID, SELFPAY ==
--- NOTE | ~2022-10-12 | DEXA_ITS ---
Bone Density Report Name: JOE BABCOCK Age: 72 Sex: Female Ethnicity: White Date of : 1950 Indication: postmenopausal; screening for osteoporosis; asthma or emphysema; hysterectomy; Referring Provider: BRII FABIAN Study: Bone densitometry was performed. Exam Date: October 12, 2022 Accession number: [id number] Bone Density: Region BMD T-score Z-score Classification AP Spine(L2, L3, L4) 0.966 -1.0 1.2 Normal Femoral Neck (Left) 0.764 -0.8 1.1 Normal Total Hip (Left) 0.887 -0.4 1.1 Normal Femoral Neck (Right) 0.734 -1.0 0.8 Normal Total Hip (Right) 0.899 -0.4 1.2 Normal Total Hip Mean 0.893 -0.4 1.2 Normal World Health Organization criteria for BMD impression classify patients as: Normal (T-score at or above -1.0), Osteopenia (T-score between -1.0 and -2.5), or Osteoporosis (T-score at or below -2.5). 10-year Fracture Risk: FRAX not reported because: All T-scores for Spine Total, Hip Total, Femoral Neck at or above -1.0 Clinical Information Provided by Patient: Has used the following medications: Vitamin D Has the following medical conditions: Asthma or Emphysema, Hysterectomy Patient maximum height was 62 Menopause Age: 34 No regular weight bearing exercise Onset of menses at age 15 Number of children 3 Impression: The patient has normal bone mass. Discussion: BONE DENSITY IS ABOVE THE MINIMUM DESIRABLE LEVEL AT ALL SKELETAL SITES TESTED. This patient?s bone mineral density is above the minimum desirable level (T-score -1.0 or better) at all sites measured. The patient should follow a healthful lifestyle (good nutrition with adequate calcium and vitamin D, and appropriate weight-bearing exercise). Follow-Up: Consider repeating this study in 5 years or sooner if there is some new clinical indication. Reported by: ELSIE on 10/12/2022 2:14:00 PM. Reviewed, dictated and finalized at location AYovani MORALEZ
== END 2022-10-12 13:53 | disposition home or self-care (01) ==
PROVIDERS: PCP Family Medicine; Visit Provider Family Medicine
DX: Z78.0 Asymptomatic menopausal state (principal)
CPT/HCPCS: 77080

== ENCOUNTER 2022-11-03 13:54 | Outpatient (CLI) | payer MEDICARE, MEDICAID, SELFPAY ==
--- NOTE | ~2022-11-03 | MM_ITS ---
EXAMINATION: MM screening [facility] HISTORY: Screening mammogram TECHNIQUE: Craniocaudal and mediolateral oblique 3-D tomosynthesis images were obtained and synthetic 2-D images were generated. CAD analysis was submitted and interpreted. COMPARISON: 07/14/2021, 05/08/2018, 04/13/2017 BREAST PARENCHYMAL COMPOSITION: There are scattered areas of fibroglandular density. FINDINGS: Scattered benign-appearing calcifications are present. No suspicious mass, calcification, o r architectural distortion are identified in either breast to suggest malignancy. There has been no s uspicious interval change. IMPRESSION: 1. No mammographic evidence of malignancy. 2. Recommend routine screening mammography in one year. BI-RADS Category 2: Benign finding(s). Reviewed, dictated and finalized at location A.
== END 2022-11-03 13:55 | disposition home or self-care (01) ==
PROVIDERS: PCP Family Medicine; Visit Provider Family Medicine
DX: Z12.31 Encounter for screening mammogram for malignant neoplasm of breast (principal)
CPT/HCPCS: 77063; 77067

== ENCOUNTER 2022-11-15 08:18 | Outpatient (CLI) | payer MEDICARE, MEDICAID, SELFPAY ==
[2022-11-15 08:43] LABS: Basophils Absolute Auto 0.1 K/mm3 (0.0-0.1); Basophils Percent Auto 0.5 % (0.2-1.2); Eosinophils Absolute Auto 0.5 K/mm3 (0-0.3); Eosinophils Percent Auto 4.9 % (0-4.4); Hematocrit 34.2 % (37.0-47.0); Immature Granulocyte Absolute 0.08 K/mm3 (0.00-0.031); Immature Granulocyte Percent A 0.7 % (0-0.5); Lymphocytes Absolute Auto 1.66 K/mm3 (0.9-3.2); Lymphocytes Percent Auto 15.2 % (18.3-44.2); Mean Corpuscular HGB Conc 32.2 g/dl (32-36); Mean Corpuscular Hemoglobin 27.2 pg (26-34); Mean Corpuscular Volume 84.4 fl (80-100); Mean Platelet Volume 8.4 fl (7.4-10.4); Monocytes Absolute Auto 0.6 K/mm3 (0.1-0.6); Monocytes Percent Auto 5.5 % (2.6-8.5); Neutrophils Percent Auto 73.2 % (45.5-73.1); Platelet Count Result 199 k/mm3 (150-375); Red Blood Count 4.05 M/mm3 (4.2-5.4); Red Cell Distribution Width 14.8 % (11.5-14.5); White Blood Count 10.9 K/mm3 (4.5-10.0)
[2022-11-15 10:59] LABS: Creatinine Urine 151.4 mg/dL; Iron 38 ug/dL (37-170); Total Protein Urine Random 10 mg/dL; Ur Ttl Prot Creatinine Ratio 0.07 mg/mg (0-0.20)
[2022-11-15 11:01] LABS: Alanine Aminotransferase 15 U/L (6-35); Albumin Level 4.1 g/dL (3.5-5.1); Alkaline Phosphatase 123 U/L (38-126); Anion Gap 10 mmol/L (8-16); Aspartate Amino Transferase 16 U/L (14-36); Bilirubin,Total 0.6 mg/dL (0.2-1.3); Blood Urea Nitrogen 20 mg/dL (7-17); Calcium 8.8 mg/dL (8.4-10.2); Carbon Dioxide 25 mmol/L (22-30); Chloride 107 mmol/L (98-107); Estimated Glomerular Filt Rate 25; Glucose 148 mg/dL (65-110); Potassium 3.7 mmol/L (3.4-5.0); Sodium 142 mmol/L (137-145)
[2022-11-15 11:02] LABS: Albumin Level 4.1 g/dL (3.5-5.1); Anion Gap 9 mmol/L (8-16); Blood Urea Nitrogen 19 mg/dL (7-17); Calcium 8.8 mg/dL (8.4-10.2); Carbon Dioxide 26 mmol/L (22-30); Chloride 107 mmol/L (98-107); Estimated Glomerular Filt Rate 25; Glucose 149 mg/dL (65-110); Phosphorus 4.1 mg/dL (2.5-4.5); Potassium 3.7 mmol/L (3.4-5.0); Sodium 142 mmol/L (137-145)
[2022-11-15 11:08] LABS: Parathyroid Intact 63.3 pg/mL (7.5-53.5)
[2022-11-15 11:09] LABS: Percent Iron Saturation 11 % (20-50)
[2022-11-15 11:13] LABS: Vitamin D 25 Hydroxy 40.7 ng/mL
[2022-11-15 12:05] LABS: Folic Acid 8.2 ng/mL (2.76->20)
== END 2022-11-15 08:19 | disposition home or self-care (01) ==
LOC: ANHLAB 08:23
PROVIDERS: Internal Medicine Hematology & Oncology; PCP Family Medicine; Visit Provider Internal Medicine Nephrology
DX: E11.22 Type 2 diabetes mellitus with diabetic chronic kidney disease (principal); E55.9 Vitamin D deficiency, unspecified; I12.9 Hypertensive chronic kidney disease with stage 1 through stage 4 chronic kidney disease, or unspecified chronic kidney disease; N18.4 Chronic kidney disease, stage 4 (severe); N25.81 Secondary hyperparathyroidism of renal origin; D64.9 Anemia, unspecified
CPT/HCPCS: 36415; 80053; 80069; 82306; 82570; 82607; 82728; 82746; 83540; 83550; 83970; 84156; 85025

== ENCOUNTER 2022-12-08 15:53 | Outpatient (CLI) | payer MEDICARE, MEDICAID, SELFPAY ==
--- NOTE | ~2022-12-08 | CT_ITS ---
Non-contrast CT scan of the Abdomen and Pelvis Clinical indication: Renal stone Technique: 2.5 mm axial scans were obtained through the abdomen and pelvis without intravenous or or al contrast. Dose reduction technique was used on this scan by utilizing automated exposure control a nd iterative reconstruction technique. The dose-length product (DLP) was 374.00 mGy-cm. COMPARISON: 12/19/2021 Findings: Images through the lung bases reveal no abnormalities. There is no evidence of renal or ureteral calculi. The kidneys and the ureters are nondilated. Calcified hepatic and splenic granulomas are present. There is borderline splenomegaly. Gallbladder i s absent. The pancreas and adrenals appear normal. There are atherosclerotic calcifications of the ao rta. There is no evidence of bowel obstruction. Images through the pelvis were performed. There is no evidence of ascites or lymphadenopathy. Urinary bladder unremarkable. Patient is post hysterectomy. No pelvic mass seen. No ascites. Impression: No renal, ureteral, or bladder stone seen. No hydronephrosis. Borderline splenomegaly. Evidence of prior granulomatous disease. Reviewed, dictated and finalized at [facility]. Impression: No renal, ureteral, or bladder stone seen. No hydronephrosis. Borderline splenomegaly. Evidence of prior granulomatous disease.
== END 2022-12-08 15:54 | disposition home or self-care (01) ==
LOC: ANHIMG 15:55
PROVIDERS: PCP Family Medicine; Visit Provider Urology
DX: N20.0 Calculus of kidney (principal)
CPT/HCPCS: 74176

== ENCOUNTER 2023-01-14 10:47 | Outpatient (CLI) | payer MEDICARE, MEDICAID, SELFPAY ==
--- NOTE | ~2023-01-14 | CT_ITS ---
CT Scan of the Chest without Contrast: Clinical Indication: Lung cancer screening, personal history of nicotine dependence Technique: Contiguous sections were acquired throughout the chest without intravenous contrast. Dose reduction technique was used on this scan by utilizing automated exposure control and iterative recon struction technique. The dose-length product (DLP) was 193.26 mGy-cm. Comparison: 01/13/2022 and 01/13/2021 Findings: There is no evidence of any significant mediastinal, hilar or axillary lymphadenopathy. Calcified lef t hilar lymph node present. There are atherosclerotic calcifications of the aorta and coronary arteri es. There is no evidence of pleural or pericardial effusion. 6 mm nodule superior segment left lower lobe is essentially unchanged from prior exams. Stable 3 mm n odule in the more inferior, posterior medial left lower lobe. Images through the upper abdomen reveal calcified hepatic and splenic granulomas. Cholecystectomy cli ps noted. DISH of the thoracic spine noted. Impression: Lung RADS 2: Benign appearance. 12 month follow-up screening CT advised. Reviewed, dictated and finalized at location . Impression: Lung RADS 2: Benign appearance. 12 month follow-up screening CT advised.
== END 2023-01-14 10:48 | disposition home or self-care (01) ==
PROVIDERS: PCP Family Medicine; Visit Provider Nurse Practitioner Family
DX: Z12.2 Encounter for screening for malignant neoplasm of respiratory organs (principal); Z87.891 Personal history of nicotine dependence
CPT/HCPCS: 71271

== ENCOUNTER 2023-02-14 11:06 | Outpatient (CLI) | payer MEDICARE, MEDICAID, SELFPAY ==
[2023-02-14 18:59] LABS: Hematocrit 34.8 % (37.0-47.0); Hemoglobin 10.9 g/dL (12.0-15.0); Mean Corpuscular HGB Conc 31.3 g/dl (32-36); Mean Corpuscular Hemoglobin 27.5 pg (26-34); Mean Corpuscular Volume 87.7 fl (80-100); Mean Platelet Volume 9.3 fl (7.4-10.4); Platelet Count Result 211 k/mm3 (150-375); Red Blood Count 3.97 M/mm3 (4.2-5.4); Red Cell Distribution Width 14.6 % (11.5-14.5)
[2023-02-14 19:32] LABS: Erythrocyte Sedimentation Rate 33 mm/hr (0-20)
[2023-02-14 19:33] LABS: Alanine Aminotransferase 14 U/L (6-35); Alkaline Phosphatase 114 U/L (38-126); Anion Gap 4 mmol/L (8-16); Aspartate Amino Transferase 32 U/L (14-36); Bilirubin,Total 0.4 mg/dL (0.2-1.3); Blood Urea Nitrogen 29 mg/dL (7-17); Calcium 9.3 mg/dL (8.4-10.2); Carbon Dioxide 27 mmol/L (22-30); Chloride 104 mmol/L (98-107); Estimated Glomerular Filt Rate 28; Glucose 105 mg/dL (65-110); Sodium 135 mmol/L (137-145)
== END 2023-02-14 11:07 | disposition home or self-care (01) ==
LOC: ANHBWCLAB 11:10
PROVIDERS: PCP Family Medicine; Visit Provider Internal Medicine
DX: M19.90 Unspecified osteoarthritis, unspecified site (principal); R70.0 Elevated erythrocyte sedimentation rate
CPT/HCPCS: 36415; 80053; 85027; 85652; 86140

== ENCOUNTER 2023-02-23 14:30 | Outpatient (CLI) | payer MEDICARE, MEDICAID, SELFPAY ==
[2023-02-23 19:09] LABS: Hemoglobin A1C 6.2 % (<5.7)
== END 2023-02-23 14:31 | disposition home or self-care (01) ==
LOC: ANHBWCLAB 14:32
PROVIDERS: PCP Nurse Practitioner Adult Health; Visit Provider Nurse Practitioner Adult Health
DX: E11.22 Type 2 diabetes mellitus with diabetic chronic kidney disease (principal); K92.1 Melena
CPT/HCPCS: 36415; 83036

== ENCOUNTER 2023-02-24 07:17 | Outpatient (CLI) | payer MEDICARE, MEDICAID, SELFPAY ==
[2023-02-24 19:39] LABS: IFOB Positive Control Positive; Immunochemical Fecal Occult Bl Positive (N)
[2023-02-24 20:28] LABS: Creatinine Urine 146.6 mg/dL
[2023-02-24 20:30] LABS: Creatinine Urine 154.5 mg/dL; Total Protein Urine Random 7 mg/dL; Ur Ttl Prot Creatinine Ratio 0.05 mg/mg (0-0.20)
[2023-02-24 20:33] LABS: MALB Creatinine Ratio 14.1 mg/g (0-30); Microalbumin Urine Random 20.7 mg/L (0-16.7)
== END 2023-02-24 07:18 | disposition home or self-care (01) ==
PROVIDERS: PCP Nurse Practitioner Adult Health; Visit Provider Internal Medicine Nephrology
DX: E11.22 Type 2 diabetes mellitus with diabetic chronic kidney disease (principal); I12.9 Hypertensive chronic kidney disease with stage 1 through stage 4 chronic kidney disease, or unspecified chronic kidney disease; N18.4 Chronic kidney disease, stage 4 (severe); N20.0 Calculus of kidney; K92.1 Melena
CPT/HCPCS: 82043; 82274; 82570; 84156

== ENCOUNTER 2023-03-11 01:49 | Day surgery (SDC) | payer MEDICARE, MEDICAID, SELFPAY ==
[2023-03-04 10:30] VITALS: BMI 35.4
[2023-03-11 09:35] VITALS: BP 161/69; PULSE 87; RESP 18; TEMP 36.6; O2SAT 96; BMI 35.4
--- NOTE | 2023-03-11 09:44 | WPDANESEPPF ---
Anes - Initial Pre Proc Eval Procedure: Operation Date: 03/11/23 10:30 Proposed Procedures p Colonoscopy - Pramod Miller MD Date/Time: 03/11/23 09:44 Surgeon: Pramod Miller MD Pre Op Diagnosis: constipation, lower abdominal pain,melena Patient Data Age: 72 Gender: F Height: 1.57 m Weight: 87.8 kg Last Vital Signs Temp 36.6 C 03/11/23 09:35 Pulse 87 03/11/23 09:35 Resp 18 03/11/23 09:35 BP 161/69 H 03/11/23 09:35 Pulse Ox 96 03/11/23 09:35 O2 Del Method Room Air 03/11/23 09:35 Allergies Allergy/AdvReac Type Severity Reaction Status Date / Time tramadol Allergy Severe Hives Verified 03/11/23 09:34 atorvastatin AdvReac Severe Nausea and Verified 03/11/23 09:34 Vomiting pravastatin AdvReac Intermediate Nausea and Verified 03/11/23 09:34 Vomiting budesonide AdvReac Mild Muscle Verified 03/11/23 09:34 Spasms formoterol AdvReac Mild Muscle Verified 03/11/23 09:34 Spasms Home Medications Medication Instructions Recorded Confirmed Type cholecalciferol (vitamin D3) 1,250 1,250 mcg PO WEEKLY 07/02/21 03/11/23 History mcg (50,000 unit) capsule allopurinol 300 mg tablet 300 mg PO DAILY 10/27/21 03/11/23 History ascorbate calcium (vitamin C) 500 500 mg PO DAILY 02/16/22 03/11/23 History mg tablet omega-3 fatty acids 1,000 mg 1,000 mg PO DAILY 02/16/22 03/11/23 History capsule blood sugar diagnostic (Accu-Chek #100 ea 04/13/22 03/11/23 Rx Iwona Plus test strips) betamethasone dipropionate 0.05 % 1 applic topical BID PRN rash #45 05/04/22 03/11/23 Rx topical cream grams semaglutide 1 mg/dose (4 mg/3 mL) 1 mg (0.75 mL) subcut WEEKLY 3 07/26/22 03/11/23 Rx subcutaneous pen injector (Ozempic) months #9.75 mL metronidazole 1 % topical gel 1 applic topical DAILY #60 grams 11/24/22 03/11/23 Rx pantoprazole 40 mg tablet,delayed 40 mg PO QAM #30 tabs 11/24/22 03/11/23 Rx release amlodipine 5 mg tablet 5 mg PO DAILY 01/05/23 03/11/23 History olodaterol 2.5 mcg/actuation mist 2 inh inhalation DAILY #4 grams 01/05/23 03/11/23 Rx for inhalation (Striverdi Respimat) prednisone 2.5 mg tablet 2.5 mg PO DAILY #40 tabs 02/21/23 03/11/23 Rx Patient hx anesthesia problems: none Family hx anesthesia problems: none Results Review: All pre-operative results and documents have been reviewed as part of the pre-operative evaluation. FOR[facility]LY [facility] Past Medical History Medical History Anemia Asthma Montgomery esophagus Chronic kidney disease, stage IV (severe) Chronic neck pain MRI of cervical spine demonstrated [id number] cervical spondylosis C5 through C7, left foraminal narrowing and moderate right foraminal narrowing C5-C6, spinal stenosis with minimal flattening along the ventral cord C5 through C7. Claustrophobia Degenerative arthritis of left knee Diastolic dysfunction Gastroesophageal reflux disease Generalized osteoarthritis of multiple sites Gout Hypercholesterolemia Hypertension Incontinence Increased PTH level Iron deficiency anemia Kidney disease Lower abdominal pain Morbid obesity Non-insulin dependent type 2 diabetes mellitus Obstructive sleep apnea on CPAP Psoriasis Screening for breast cancer Wears glasses Surgical History Surgical History History of appendectomy History of bilateral cataract extraction History of bilateral tubal ligation History of cholecystectomy History of colonoscopy History of esophageal dilatation History of lithotripsy History of total abdominal hysterectomy and bilateral salpingo-oophorectomy due to dysfunctional uterine bleeding Status post cystoscopy with ureteral stent placement Family History Family History Grandparent Acute myocardial infarction Family history of malignant neoplasm Carcinoma of colon Mother Family h
[2023-03-11] MEDS: LACTATED RINGERS 1,000 ML 150 ML IV CONT (09:46)
[2023-03-11 09:50] LABS: Glucose Point of Care 110 mg/dl (65-105)
--- NOTE | 2023-03-11 09:59 | WPDHPUPDATE1 ---
History and Physical Update Update Date/Time: 03/11/23 09:59 History and Physical has been reviewed, including an updated exam of the patient. There are NO changes in the patient's condition. Risks, benefits, and alternatives have been discussed and questions answered. Patient agrees to proceed with procedure.
[2023-03-11 11:32] VITALS: BP 137/62; PULSE 88; RESP 16; O2SAT 97
[2023-03-11 11:42] VITALS: BP 126/72; PULSE 93; RESP 19; O2SAT 97
[2023-03-11 11:52] VITALS: BP 139/71; PULSE 87; RESP 16; O2SAT 98
== END 2023-03-11 12:00 | disposition home or self-care (01) ==
PROVIDERS: PCP Family Medicine; Visit Provider Internal Medicine Gastroenterology
PROC: 0DJD8ZZ Inspection of Lower Intestinal Tract, Via Natural or Artificial Opening Endoscopic (ICD-10-PCS; CPT 45378; principal; 2023-03-11 10:30)
DX: K57.30 Diverticulosis of large intestine without perforation or abscess without bleeding (principal); K64.8 Other hemorrhoids; K92.1 Melena; K59.00 Constipation, unspecified; I13.10 Hypertensive heart and chronic kidney disease without heart failure, with stage 1 through stage 4 chronic kidney disease, or unspecified chronic kidney disease; E11.22 Type 2 diabetes mellitus with diabetic chronic kidney disease; N18.4 Chronic kidney disease, stage 4 (severe); K21.9 Gastro-esophageal reflux disease without esophagitis; E78.00 Pure hypercholesterolemia, unspecified; J45.909 Unspecified asthma, uncomplicated; K22.70 Barrett's esophagus without dysplasia; D50.9 Iron deficiency anemia, unspecified; M10.9 Gout, unspecified; G47.33 Obstructive sleep apnea (adult) (pediatric); E66.9 Obesity, unspecified; Z68.35 Body mass index [BMI] 35.0-35.9, adult; Z87.891 Personal history of nicotine dependence; Z79.51 Long term (current) use of inhaled steroids; Z79.85 Long-term (current) use of injectable non-insulin antidiabetic drugs
CPT/HCPCS: 45378; 82948; J2704; J7120

== ENCOUNTER 2023-04-28 15:48 | Outpatient (CLI) | payer MEDICARE, MEDICAID, SELFPAY ==
--- NOTE | ~2023-04-28 | MR_ITS ---
EXAMINATION: MR knee LT wo con DATE: 04/28/2023 16:40 INDICATION: Left knee pain. TECHNIQUE: Magnetic resonance imaging (MRI) of the left knee was performed without intravenous contra st. Sequences included axial PD-weighted FS FSE, coronal PD-weighted FSE and PD-weighted FS FSE, sagi ttal PD-weighted FSE, and sagittal T2-weighted FS FSE. COMPARISON: None. FINDINGS: Medial compartment: There is a complex tear involving body and posterior horn of medial meniscus. There is full-thickness cartilage loss of femoral condyle involving the central and medial articular surface. There is full- thickness cartilage loss of tibial condyle involving the central and medial articular surface. Osteop hytes are noted. Lateral compartment: Lateral meniscus is normal. There is cartilage surface irregularity of tibial condyle. There is carti courtney surface irregularity of femoral condyle. There are tiny osteophytes. Patellofemoral compartment: There is deep partial thickness cartilage loss of patellar medial and lateral facets and median ridge distally. There is cartilage surface irregularity of trochlea. There are tiny osteophytes. Ligaments and tendons: The anterior and posterior cruciate ligaments are normal. There are changes of prior sprains of media l collateral ligament and fibular collateral ligament characterized by increased signal intensity pro ximally. There is mild patellar tendinopathy. Fluid: There is a small knee joint effusion. There is a small Celeste's cyst. There is moderate prepatellar an d superficial infrapatellar bursitis. IMPRESSION: 1. Severe chondrosis of medial compartment, moderate chondrosis of patellofemoral compartment, and mi ld chondrosis of lateral compartment. 2. Complex tear of medial meniscus. 3. Small knee joint effusion. 4. Small Celeste's cyst. Reviewed, dictated and finalized at location A. IMPRESSION: 1. Severe chondrosis of medial compartment, moderate chondrosis of patellofemor al compartment, and mild chondrosis of lateral compartment. 2. Complex tear of medial meniscus. 3. Small knee joint effusion. 4. Small Celeste's cyst.
== END 2023-04-28 15:49 | disposition home or self-care (01) ==
PROVIDERS: PCP Family Medicine; Visit Provider Nurse Practitioner Family
DX: S83.232A Complex tear of medial meniscus, current injury, left knee, initial encounter (principal); M71.22 Synovial cyst of popliteal space [Baker], left knee; M25.462 Effusion, left knee; M25.562 Pain in left knee; T14.90XA Injury, unspecified, initial encounter
CPT/HCPCS: 73721

== ENCOUNTER 2023-05-17 12:51 | Outpatient (CLI) | payer MEDICARE, MEDICAID, SELFPAY ==
[2023-05-17 18:41] LABS: Anion Gap 8 mmol/L (8-16); Blood Urea Nitrogen 16 mg/dL (7-17); Calcium 9.9 mg/dL (8.4-10.2); Carbon Dioxide 27 mmol/L (22-30); Chloride 106 mmol/L (98-107); Estimated Glomerular Filt Rate 25; Glucose 142 mg/dL (65-110); Potassium 4.4 mmol/L (3.4-5.0); Sodium 141 mmol/L (137-145)
[2023-05-17 19:11] LABS: Basophils Absolute Auto 0.1 K/mm3 (0.0-0.1); Basophils Percent Auto 0.6 % (0.2-1.2); Eosinophils Absolute Auto 0.6 K/mm3 (0-0.3); Eosinophils Percent Auto 5.1 % (0-4.4); Hematocrit 38.5 % (37.0-47.0); Immature Granulocyte Absolute 0.05 K/mm3 (0.00-0.031); Immature Granulocyte Percent A 0.4 % (0-0.5); Lymphocytes Absolute Auto 1.98 K/mm3 (0.9-3.2); Lymphocytes Percent Auto 15.9 % (18.3-44.2); Mean Corpuscular HGB Conc 31.2 g/dl (32-36); Mean Corpuscular Volume 86.5 fl (80-100); Mean Platelet Volume 9.7 fl (7.4-10.4); Monocytes Absolute Auto 0.7 K/mm3 (0.1-0.6); Monocytes Percent Auto 5.3 % (2.6-8.5); Neutrophils Absolute Auto 9.1 K/mm3 (1.3-6.7); Neutrophils Percent Auto 72.7 % (45.5-73.1); Platelet Count Result 234 k/mm3 (150-375); Red Blood Count 4.45 M/mm3 (4.2-5.4); Red Cell Distribution Width 14.9 % (11.5-14.5); White Blood Count 12.5 K/mm3 (4.5-10.0)
[2023-05-17 19:36] LABS: Iron 49 ug/dL (37-170)
[2023-05-17 19:46] LABS: Percent Iron Saturation 13 % (20-50)
[2023-05-17 20:11] LABS: Folic Acid 12.6 ng/mL (2.76->20)
== END 2023-05-17 12:52 | disposition home or self-care (01) ==
PROVIDERS: PCP Family Medicine; Visit Provider Internal Medicine Hematology & Oncology
DX: D64.9 Anemia, unspecified (principal)
CPT/HCPCS: 36415; 80048; 82607; 82728; 82746; 83540; 83550; 85025

== ENCOUNTER 2023-07-22 10:07 | Outpatient (CLI) | payer MEDICARE, SELFPAY ==
[2023-07-22 11:23] LABS: Albumin Level 4.1 g/dL (3.5-5.1); Anion Gap 11 mmol/L (8-16); Blood Urea Nitrogen 15 mg/dL (7-17); Calcium 9.2 mg/dL (8.4-10.2); Carbon Dioxide 25 mmol/L (22-30); Chloride 102 mmol/L (98-107); Estimated Glomerular Filt Rate 28; Glucose 110 mg/dL (65-110); Phosphorus 2.9 mg/dL (2.5-4.5); Potassium 3.6 mmol/L (3.4-5.0); Sodium 138 mmol/L (137-145)
[2023-07-22 11:59] LABS: Total Protein Urine Random 16 mg/dL
[2023-07-22 12:04] LABS: Creatinine Urine 27.9 mg/dL; Ur Ttl Prot Creatinine Ratio 0.57 mg/mg (0-0.20)
[2023-07-22 12:05] LABS: Parathyroid Intact 68.8 pg/mL (7.5-53.5)
[2023-07-22 12:11] LABS: Vitamin D 25 Hydroxy 30.9 ng/mL
== END 2023-07-22 10:08 | disposition home or self-care (01) ==
PROVIDERS: PCP Family Medicine; Visit Provider Internal Medicine Nephrology
DX: E55.9 Vitamin D deficiency, unspecified (principal); N18.4 Chronic kidney disease, stage 4 (severe); N25.81 Secondary hyperparathyroidism of renal origin
CPT/HCPCS: 36415; 80069; 82306; 82570; 83970; 84156

== ENCOUNTER 2023-09-07 08:26 | Outpatient (CLI) | payer MEDICARE, MEDICAID, SELFPAY ==
[2023-09-07 19:06] LABS: Cholesterol 190 mg/dL (0-200); HDL Direct 37 mg/dL; Triglycerides 261 mg/dL (<150)
[2023-09-07 19:18] LABS: LDL Cholesterol Direct 103 mg/dL
[2023-09-07 19:26] LABS: Hemoglobin A1C 6.4 % (<5.7)
== END 2023-09-07 08:27 | disposition home or self-care (01) ==
PROVIDERS: PCP Nurse Practitioner Adult Health; Visit Provider Internal Medicine Cardiovascular Disease
DX: E11.9 Type 2 diabetes mellitus without complications (principal); E78.5 Hyperlipidemia, unspecified
CPT/HCPCS: 36415; 80061; 83036

== ENCOUNTER 2023-11-07 09:00 | Outpatient (CLI) | payer MEDICARE, MEDICAID, SELFPAY ==
[2023-11-07 19:01] LABS: Cholesterol 189 mg/dL (0-200); HDL Direct 39 mg/dL; Triglycerides 274 mg/dL (<150)
[2023-11-07 19:05] LABS: Albumin Level 4.3 g/dL (3.5-5.1); Anion Gap 7 mmol/L (4-12); Blood Urea Nitrogen 19 mg/dL (7-17); Calcium 8.9 mg/dL (8.4-10.2); Carbon Dioxide 27 mmol/L (22-30); Chloride 108 mmol/L (98-107); Estimated Glomerular Filt Rate 28; Glucose 135 mg/dL (65-110); Phosphorus 3.7 mg/dL (2.5-4.5); Potassium 3.8 mmol/L (3.4-5.0); Sodium 142 mmol/L (137-145)
[2023-11-07 19:08] LABS: Creatinine Urine 158.1 mg/dL; Total Protein Urine Random 14 mg/dL; Ur Ttl Prot Creatinine Ratio 0.09 mg/mg (0-0.20)
[2023-11-07 19:12] LABS: LDL Cholesterol Direct 101 mg/dL
[2023-11-07 19:13] LABS: Anion Gap 10 mmol/L (4-12); Blood Urea Nitrogen 21 mg/dL (7-17); Calcium 9.3 mg/dL (8.4-10.2); Carbon Dioxide 25 mmol/L (22-30); Chloride 108 mmol/L (98-107); Estimated Glomerular Filt Rate 26; Glucose 139 mg/dL (65-110); Potassium 3.8 mmol/L (3.4-5.0); Sodium 143 mmol/L (137-145)
[2023-11-07 19:23] LABS: Basophils Absolute Auto 0.1 K/mm3 (0.0-0.1); Basophils Percent Auto 0.5 % (0.2-1.2); Eosinophils Absolute Auto 0.7 K/mm3 (0-0.3); Eosinophils Percent Auto 6.6 % (0-4.4); Hematocrit 37.9 % (37.0-47.0); Hemoglobin 11.7 g/dL (12.0-15.0); Immature Granulocyte Absolute 0.05 K/mm3 (0.00-0.031); Immature Granulocyte Percent A 0.5 % (0-0.5); Lymphocytes Absolute Auto 2.32 K/mm3 (0.9-3.2); Lymphocytes Percent Auto 21.3 % (18.3-44.2); Mean Corpuscular HGB Conc 30.9 g/dl (32-36); Mean Corpuscular Hemoglobin 27.6 pg (26-34); Mean Corpuscular Volume 89.4 fl (80-100); Mean Platelet Volume 9.2 fl (7.4-10.4); Monocytes Absolute Auto 0.7 K/mm3 (0.1-0.6); Monocytes Percent Auto 6.7 % (2.6-8.5); Neutrophils Percent Auto 64.4 % (45.5-73.1); Platelet Count Result 234 k/mm3 (150-375); Red Blood Count 4.24 M/mm3 (4.2-5.4); Red Cell Distribution Width 15.2 % (11.5-14.5); White Blood Count 10.9 K/mm3 (4.5-10.0)
[2023-11-07 19:30] LABS: Iron 44 ug/dL (37-170)
[2023-11-07 19:39] LABS: Percent Iron Saturation 12 % (20-50)
[2023-11-07 20:10] LABS: Folic Acid 6.6 ng/mL (2.76->20)
== END 2023-11-07 09:01 | disposition home or self-care (01) ==
PROVIDERS: Internal Medicine Hematology & Oncology; PCP Nurse Practitioner Adult Health; Referring Provider Internal Medicine Nephrology; Visit Provider Internal Medicine Cardiovascular Disease
DX: N20.0 Calculus of kidney (principal); E11.22 Type 2 diabetes mellitus with diabetic chronic kidney disease; I12.9 Hypertensive chronic kidney disease with stage 1 through stage 4 chronic kidney disease, or unspecified chronic kidney disease; N18.4 Chronic kidney disease, stage 4 (severe); E78.5 Hyperlipidemia, unspecified; D64.9 Anemia, unspecified
CPT/HCPCS: 36415; 80048; 80061; 80069; 82570; 82607; 82728; 82746; 83540; 83550; 84156; 85025

== ENCOUNTER 2023-11-30 12:38 | Outpatient (CLI) | payer MEDICARE, MEDICAID, SELFPAY ==
--- NOTE | 2023-11-30 16:39 | P.PCNPFT_ITS ---
PFT Procedure Performed PFT Procedure Performed Spirometry with Pre/Post Bronchodilator Plethysmography (Lung Vol) Diffusing Cap (DLCO) Flow Vol Loop PFT Interpretation This is a pulmonary function test with pre and post-bronchodilator spirometry, plethysmography and diffusing capacity. The test was performed and results interpreted in accordance with the 2019 and 2005 ATS/ERS Task Force guidelines respectively using the Global Lung Function Initiative-2012 reference equations. Patient demonstrated good effort and cooperation. Reproducibility criteria were met. The quality of the pre bronchodilator spirometry maneuver was Grade A and post bronchodilator spirometry maneuver was Grade A. Of note, only 1 acceptable DLCO maneuver was obtained despite for attempts. Findings: Spirometry: The contour the inspiratory and expiratory flow tracing demonstrates a sawtooth pattern. the pre bronchodilator FVC is 1.94 L, 75% predicted. The pre bronchodilator FEV1 is 1.35 L, 68% predicted. The pre bronchodilator FEV1: FVC ratio 70%. The post bronchodilator FVC is 1.65 L, representing a 15% decrease. The post bronchodilator FEV1 is 1.13 L, representing a 16% decrease. the post bronchodilator FEV1: FVC ratio 69%. Plethysmography: The total lung capacity is 4.57 L, 97% predicted. The fu nctional residual capacity is 2.85 L, 106% predicted. The residual volume is 2.38 L, 112% predicted. Diffusing capacity: The diffusing capacity unadjusted for hemoglobin and carboxyhemoglobin is 10.2, 52% predicted. The diffusing capacity adjusted for alveolar volume is 4.35, 100% predicted. In comparison to previous pulmonary function testing on 09/20/2022 in which only spirometry and plethysmography were performed the saw tooth inspiratory and expiratory pattern are new. The post bronchodilator FVC see is unchanged from 1.67 L to 1.65 L. The post bronchodilator FEV1 is unchanged from 1.27 L to 1.13 L. The total lung capacity is increased from 3.25 L to a 4.57 L. The functional residual capacity is increased from 2.06 L to 2.85 L. The residual volume is increased from 1.72 L to 2.38 L. Impression: The contour the expiratory flow tracing demonstrates a reproducible oscillating or sawtooth pattern. This is usually generated either by air flow disturbances in the upper airway or from tremors of the respiratory muscles. This has been associated with sleep apnea, obesity, snorers without obstructive sleep apnea, upper airway injury, upper airway stenosis, tracheobronchomalacia, neuromuscular disorders with bulbar involvement, burn injury of the upper airway, diaphragmatic myoclonus, and herpes zoster of abdominal muscles. Clinical correlation is recommended. Otherwise, the spirometry is normal without evidence of an obstructive abnormality. The lung volumes are normal without evidence of and restrictive abnormality. The FEV1 is moderately decreased without an obstructive or restrictive abnormality. This is an abnormal but nonspecific finding. There is no significant improvement after inhaling a single dose of albuterol. The diffusing capacity unadjusted for hemoglobin and carboxyhemoglobin is moderately decreased and normalizes when adjusted for alveolar volume. In comparison to prior pulmonary function testing on 09/20/2022 in which only spirometry and plethysmography were performed the sawtooth inspiratory and expiratory pattern are new. There has been a greater than anticipated time dependent increase in the total lung capacity, functional residual capacity and residual volume with no significant change in the F FVC or FEV1. Clinical correlation is recommended.
== END 2023-11-30 12:39 | disposition home or self-care (01) ==
LOC: ANHPFT 12:39
PROVIDERS: PCP Nurse Practitioner Adult Health; Visit Provider Nurse Practitioner Family
DX: R06.09 Other forms of dyspnea (principal)
CPT/HCPCS: 94060; 94618; 94726; 94729

== ENCOUNTER 2024-02-23 13:57 | Outpatient (CLI) | payer MEDICARE, MEDICAID, SELFPAY ==
--- NOTE | ~2024-02-23 | XR_ITS ---
Lumbosacral Spine: AP and lateral views Clinical History: Pain Findings: The normal lordotic curve is maintained. There is 6 mm retrolisthesis of L3 over L4. There is 4 mm anterolisthesis of L4 over L5. There are minimal chronic appearing wedging deformities of T12 , L1, L2. There is extensive facet arthropathy throughout the lumbar spine, especially at L4-L5 and L 5-S1. Minimal degenerative disc changes are present.. The sacroiliac joints are normally outlined. Impression: Extensive, advanced facet arthropathy, as detailed above. 6 mm retrolisthesis of L3 over L4. 4 mm anterolisthesis of L4-L5. Probable minimal chronic anterior wedging deformities of T12, L1, L2. Reviewed, dictated and finalized at location . Impression: Extensive, advanced facet arthropathy, as detailed above. 6 mm retrolisthesis of L3 over L4. 4 mm anterolisthesis of L4-L5. Probable minimal chronic anterior wedging deformities of T12, L1, L2.
--- NOTE | ~2024-02-23 | XR_ITS ---
Thoracic spine: Clinical Indication: Back pain AP and lateral views were performed. Probable minimal chronic wedging deformity of T12. There is normal alignment of the vertebrae. There are mild degenerative disc changes throughout the thoracic spine. Paravertebral soft tissues appear n ormal. There is extensive DISH of the mid to lower thoracic spine. Impression: Probable minimal chronic wedging deformity of T12. Extensive DISH of the mid to lower thoracic spine. Reviewed, dictated and finalized at location . Impression: Probable minimal chronic wedging deformity of T12. Extensive DISH of the mid to lower thoracic spine.
== END 2024-02-23 13:58 | disposition home or self-care (01) ==
LOC: ANHBWCIMG 14:00
PROVIDERS: PCP Nurse Practitioner Adult Health; Visit Provider Nurse Practitioner Adult Health
DX: M48.14 Ankylosing hyperostosis [Forestier], thoracic region (principal); M47.896 Other spondylosis, lumbar region; M47.897 Other spondylosis, lumbosacral region; M43.16 Spondylolisthesis, lumbar region
CPT/HCPCS: 72072; 72100

== ENCOUNTER 2024-02-28 07:40 | Outpatient (CLI) | payer MEDICARE, MEDICAID, SELFPAY ==
[2024-02-28 19:29] LABS: Basophils Absolute Auto 0.1 K/mm3 (0.0-0.1); Basophils Percent Auto 0.4 % (0.2-1.2); Eosinophils Absolute Auto 0.8 K/mm3 (0-0.3); Eosinophils Percent Auto 7.5 % (0-4.4); Hematocrit 38.3 % (37.0-47.0); Hemoglobin 11.3 g/dL (12.0-15.0); Immature Granulocyte Absolute 0.05 K/mm3 (0.00-0.031); Immature Granulocyte Percent A 0.4 % (0-0.5); Lymphocytes Absolute Auto 2.66 K/mm3 (0.9-3.2); Lymphocytes Percent Auto 23.8 % (18.3-44.2); Mean Corpuscular HGB Conc 29.5 g/dl (32-36); Mean Corpuscular Hemoglobin 27.2 pg (26-34); Mean Corpuscular Volume 92.1 fl (80-100); Mean Platelet Volume 9.1 fl (7.4-10.4); Monocytes Absolute Auto 0.8 K/mm3 (0.1-0.6); Monocytes Percent Auto 6.7 % (2.6-8.5); Neutrophils Absolute Auto 6.8 K/mm3 (1.3-6.7); Neutrophils Percent Auto 61.2 % (45.5-73.1); Platelet Count Result 246 k/mm3 (150-375); Red Blood Count 4.16 M/mm3 (4.2-5.4); Red Cell Distribution Width 15.3 % (11.5-14.5); White Blood Count 11.2 K/mm3 (4.5-10.0)
[2024-02-28 19:46] LABS: Alanine Aminotransferase 13 U/L (6-35); Alkaline Phosphatase 100 U/L (38-126); Anion Gap 10 mmol/L (4-12); Aspartate Amino Transferase 30 U/L (14-36); Bilirubin,Total 0.4 mg/dL (0.2-1.3); Blood Urea Nitrogen 19 mg/dL (7-17); Calcium 8.7 mg/dL (8.4-10.2); Carbon Dioxide 26 mmol/L (22-30); Chloride 104 mmol/L (98-107); Cholesterol 194 mg/dL (0-200); Estimated Glomerular Filt Rate 30; Glucose 135 mg/dL (65-110); HDL Direct 38 mg/dL; Magnesium 1.4 mg/dL (1.6-2.3); Sodium 140 mmol/L (137-145); Triglycerides 251 mg/dL (<150); Uric Acid 3.6 mg/dL (2.5-7.5)
[2024-02-28 19:51] LABS: Hypochromasia 1+; Platelet Estimate Adequate (Adequate); Schistocytes None Seen
[2024-02-28 20:02] LABS: LDL Cholesterol Direct 105 mg/dL
[2024-02-28 20:20] LABS: Hemoglobin A1C 6.5 % (<5.7)
[2024-02-28 20:37] LABS: Creatinine Urine 130.3 mg/dL
[2024-02-28 20:44] LABS: MALB Creatinine Ratio 32.9 mg/g (0-30); Microalbumin Urine Random 42.9 mg/L (0-16.7)
== END 2024-02-28 07:41 | disposition home or self-care (01) ==
LOC: ANHBWCLAB 07:42
PROVIDERS: PCP Nurse Practitioner Adult Health; Visit Provider Nurse Practitioner Adult Health
DX: E53.8 Deficiency of other specified B group vitamins (principal); E11.9 Type 2 diabetes mellitus without complications; I10 Essential (primary) hypertension; M10.9 Gout, unspecified
CPT/HCPCS: 36415; 80053; 80061; 82043; 82565; 82607; 82746; 83036; 83735; 84550; 85025

== ENCOUNTER 2024-03-21 08:11 | Outpatient (CLI) | payer MEDICARE, MEDICAID, SELFPAY ==
[2024-03-21 19:57] LABS: Parathyroid Intact 68.5 pg/mL (14.5-75.2)
[2024-03-21 21:21] LABS: Albumin Level 4.1 g/dL (3.5-5.1); Anion Gap 11 mmol/L (4-12); Blood Urea Nitrogen 27 mg/dL (7-17); Calcium 9.2 mg/dL (8.4-10.2); Carbon Dioxide 27 mmol/L (22-30); Chloride 101 mmol/L (98-107); Estimated Glomerular Filt Rate 30; Glucose 124 mg/dL (65-110); Phosphorus 4.7 mg/dL (2.5-4.5); Potassium 4.3 mmol/L (3.4-5.0); Sodium 139 mmol/L (137-145)
[2024-03-21 21:45] LABS: Creatinine Urine 86.1 mg/dL; Total Protein Urine Random 11 mg/dL; Ur Ttl Prot Creatinine Ratio 0.13 mg/mg (0-0.20)
[2024-03-21 22:20] LABS: Vitamin D 25 Hydroxy 23.9 ng/mL
== END 2024-03-21 08:12 | disposition home or self-care (01) ==
LOC: ANHBWCLAB 08:14
PROVIDERS: PCP Nurse Practitioner Adult Health; Visit Provider Internal Medicine Nephrology
DX: N20.0 Calculus of kidney (principal); I12.9 Hypertensive chronic kidney disease with stage 1 through stage 4 chronic kidney disease, or unspecified chronic kidney disease; N18.4 Chronic kidney disease, stage 4 (severe); E11.22 Type 2 diabetes mellitus with diabetic chronic kidney disease; N25.81 Secondary hyperparathyroidism of renal origin; E55.9 Vitamin D deficiency, unspecified
CPT/HCPCS: 36415; 80069; 82306; 82570; 83970; 84156

== ENCOUNTER 2024-04-03 13:03 | Outpatient (CLI) | payer MEDICARE, MEDICAID, SELFPAY ==
--- NOTE | ~2024-04-03 | US_ITS ---
EXAMINATION: US renal BI DATE: 04/03/2024 13:59 INDICATION: Flank pain. Nephrolithiasis. TECHNIQUE: Multiple ultrasound grayscale images of the kidneys were obtained. COMPARISON: None. FINDINGS: The right kidney measures 8.3 x 4.5 x 4.5 cm. The left kidney measures 10.2 x 5.1 x 5.7 cm. Diffuse m ild cortical thinning at the left kidney. Moderate cortical thinning at the right kidney. There is no hydronephrosis in either kidney. No stones identified. The bladder is normal. A left-sided but no r ight-sided ureteral jet visualized in the bladder on color Doppler. IMPRESSION: 1. Mild left-sided and moderate right-sided renal atrophy. No hydronephrosis. Reviewed, dictated and finalized at location B.
== END 2024-04-03 13:04 | disposition home or self-care (01) ==
PROVIDERS: PCP Nurse Practitioner Adult Health; Visit Provider Internal Medicine Nephrology
DX: N26.1 Atrophy of kidney (terminal) (principal); E11.22 Type 2 diabetes mellitus with diabetic chronic kidney disease; N18.4 Chronic kidney disease, stage 4 (severe); Z87.442 Personal history of urinary calculi
CPT/HCPCS: 76775

== ENCOUNTER 2024-04-10 13:01 | Outpatient (CLI) | payer MEDICARE, MEDICAID, SELFPAY ==
--- NOTE | ~2024-04-10 | MR_ITS ---
EXAMINATION: MR lumbar spine wo con DATE: 04/10/2024 13:47 INDICATION: Ankylosing hyperostosis TECHNIQUE: Magnetic resonance imaging (MRI) of the lumbar spine was performed without intravenous con trast. Sequences included sagittal T2-weighted FSE, sagittal T2-weighted FS FSE, sagittal T1-weighted FSE, and axial T2-weighted FSE. COMPARISON: None FINDINGS: There is 2-3 mm anterolisthesis L4 on L5. Chronic likely physiologic mild anterior wedging at T11-L2. Normal marrow signal throughout. Mild disc height loss at T10-T11 through T12-L1. Disc desiccation w ith minimal disc height loss at L1-L2 and L3-L4 through L5-S1. The conus medullaris terminates at L2. There is normal signal in the caudal spinal cord. Mild right-sided and moderate right-sided renal at rophy. There is subcutaneous edema posterior to the lumbar spine. The following disc levels are speci fically discussed: T12-L1: The disc does not extend beyond the endplate margin. There is mild bilateral facet joint oste oarthritis. There is no neural foraminal stenosis. There is no central canal stenosis. L1-L2: Annular fissure and left paracentral disc protrusion. There is mild bilateral facet joint oste oarthritis. There is mild bilateral, left greater than right neural foraminal stenosis. There is mild central canal stenosis along with mild narrowing of the left lateral recess. L2-L3: There bilateral foraminal zone disc protrusions. There is mild bilateral facet joint osteoarth ritis. There is mild left and moderate right neural foraminal stenosis. There is minimal central [place] l stenosis. L3-L4: Disc is mildly bulging. There is hypertrophy of the ligamentum flavum. There is mild bilateral facet joint osteoarthritis. There is moderate bilateral neural foraminal stenosis. There is mild terrance tral canal stenosis. L4-L5: Disc is mildly bulging. There is hypertrophy of the ligamentum flavum. There is severe bilater al facet joint osteoarthritis. There is moderate bilateral neural foraminal stenosis. There is severe central canal stenosis. L5-S1: Right foraminal zone annular fissure and small disc protrusion. There is severe bilateral face t joint osteoarthritis. There is mild right neural foraminal stenosis. There is no central canal sten osis. IMPRESSION: 1. Mild lumbar spondylosis most notable for 3 mm anterolisthesis and severe bilateral facet osteoarth ritis at L4-L5 contributing to severe central canal stenosis at this level. Reviewed, dictated and finalized at location A. IMPRESSION: 1. Mild lumbar spondylosis most notable for 3 mm anterolisthesis and severe angely ateral facet osteoarthritis at L4-L5 contributing to severe central canal steno sis at this level.
--- NOTE | ~2024-04-10 | MR_ITS ---
EXAMINATION: MR thoracic spine wo con DATE: 04/10/2024 13:48 INDICATION: Ankylosing hyperostosis TECHNIQUE: Magnetic resonance imaging (MRI) of the thoracic spine was performed without intravenous c ontrast. Sagittal localizer T1-weighted FSE of the cervicothoracic spine was obtained. Thoracic spine sequences included sagittal T2-weighted FSE, sagittal T1-weighted SE, Sagittal T2-weighted FS FSE, a nd axial T2-weighted FSE. COMPARISON: Radiograph dated 02/23/2024 FINDINGS: Alignment is normal.Minimal likely physiologic anterior wedging at T12 and L1.Vertebral body heights are otherwise normal. Normal bone marrow signal throughout. Normal marrow signal.Again seen are bridg ing osteophytes at multiple levels consistent with diffuse idiopathic skeletal hyperostosis (DISH). M oderate disc height loss at C5-C6 and mild disc height loss at C6-C7 and throughout the thoracic spin e. Small disc protrusion at T1-T2 and T2-T3 resulting in mild central canal stenosis. The central can al and the more caudal thoracic spine is patent throughout. Disc bulges are also seen in the lower ce rvical spine resulting in mild central canal stenosis at C5-C6 and mild to moderate central canal cm nosis at C6-C7. There is normal spinal cord signal. The conus terminates at L2. There is multilevel t horacic facet osteoarthritis, moderate to severe in the upper thoracic spine and mild to moderate in the mid and lower thoracic spine. This contributes to mild neural foraminal stenosis at a few levels in the upper thoracic spine. Paravertebral soft tissues are unremarkable. IMPRESSION: 1. Mild thoracic spondylosis with bridging osteophytes at multiple levels consistent with diffuse idi opathic skeletal hyperostosis (DISH). Reviewed, dictated and finalized at location A. IMPRESSION: 1. Mild thoracic spondylosis with bridging osteophytes at multiple levels consi stent with diffuse idiopathic skeletal hyperostosis (DISH).
== END 2024-04-10 13:02 | disposition home or self-care (01) ==
LOC: ANHIMG 13:05
PROVIDERS: PCP Nurse Practitioner Adult Health; Visit Provider Nurse Practitioner Adult Health
DX: M47.814 Spondylosis without myelopathy or radiculopathy, thoracic region (principal); M43.16 Spondylolisthesis, lumbar region; M25.78 Osteophyte, vertebrae; M47.816 Spondylosis without myelopathy or radiculopathy, lumbar region; M48.061 Spinal stenosis, lumbar region without neurogenic claudication; M48.10 Ankylosing hyperostosis [Forestier], site unspecified
CPT/HCPCS: 72146; 72148

== ENCOUNTER 2024-05-14 09:29 | Outpatient (CLI) | payer MEDICARE, MEDICAID, SELFPAY ==
--- NOTE | ~2024-05-14 | XR_ITS ---
EXAMINATION: XR cervical spine 4-5V DATE: 05/14/2024 10:12 INDICATION: Spondylosis without myelopathy or radiculopathy. TECHNIQUE: 6 views of cervical spine were obtained. COMPARISON: None. FINDINGS: There is 4 degrees levocurvature of cervical spine. Vertebral body heights are normal. Ther e is moderately decreased disc height at C5-C6 and C6-C7. There is multilevel [id number] facet joint osteoarthritis. At C5-C6, there is moderate bilateral neural foraminal stenosis. At C6-C7 and C 7-T1, there is mild bilateral neural foraminal stenosis. There is mild central canal stenosis at C5-C 6 and C6-C7. IMPRESSION: 1. Moderate cervical spondylosis. Reviewed, dictated and finalized at location B.
--- NOTE | ~2024-05-14 | XR_ITS ---
XR hip BI 2V w AP pelvis Ordering provider: Darrell Aquino MD History: . M54.9 - Dorsalgia, unspecified . Comparison: None. FINDINGS: BONES: No acute fracture or dislocation. HIP JOINT SPACES: Bilateral mild to moderate osteoarthritic changes. SACROILIAC JOINT SPACES/LUMBAR SPINE: The sacroiliac joint spaces are normal. Mild degenerative nix es of the visualized lower lumbar spine. PUBIC SYMPHYSIS: Normal. SOFT TISSUES: Normal. Postoperative changes in the left side of the pelvis. IMPRESSION: No acute osseous abnormality of the bilateral hips and pelvis. Reviewed, dictated and finalized at location A.
--- NOTE | ~2024-05-14 | XR_ITS ---
EXAMINATION: XR lumbar spine 6V w bending DATE: 05/14/2024 10:12 INDICATION: Postlaminectomy syndrome, not elsewhere classified. TECHNIQUE: 7 views of lumbar spine were obtained. COMPARISON: Lumbar spine radiographs 02/23/2024 FINDINGS: Alignment is normal. There is mild chronic anterior wedging of T11-L2 vertebral bodies. The re is 3 mm retrolisthesis of L3 on L4. There are endplate osteophytes at all levels. Intervertebral d isc heights are normal. There is multilevel facet joint osteoarthritis, severe bilaterally at L4-L5 a nd L5-S1. There are surgical clips in the abdomen and pelvis. IMPRESSION: 1. Mild lumbar spondylosis. Reviewed, dictated and finalized at location B. IMPRESSION: 1. Mild lumbar spondylosis.
--- NOTE | ~2024-05-14 | XR_ITS ---
Left Shoulder Technique: AP and scapular Y views were obtained. Clinical History: Pain Findings: No fracture or dislocation is seen. Osseous alignment is anatomic. The glenohumeral joint i s intact. There is mild AC joint degenerative change. Soft tissues are unremarkable. Impression: Mild AC joint degenerative change. Reviewed, dictated and finalized at location . Impression: Mild AC joint degenerative change.
== END 2024-05-14 09:30 | disposition home or self-care (01) ==
PROVIDERS: PCP Nurse Practitioner Adult Health; Visit Provider Anesthesiology Pain Medicine
DX: M19.012 Primary osteoarthritis, left shoulder (principal); M47.812 Spondylosis without myelopathy or radiculopathy, cervical region; M47.816 Spondylosis without myelopathy or radiculopathy, lumbar region; M96.1 Postlaminectomy syndrome, not elsewhere classified
CPT/HCPCS: 72050; 72114; 73030; 73521

== ENCOUNTER 2024-06-16 12:44 | Outpatient (CLI) | payer MEDICARE, MEDICAID, SELFPAY ==
--- NOTE | ~2024-06-16 | MR_ITS ---
MRI of the cervical spine Clinical History: Radiculopathy Technique: Axial T2-weighted and gradient images, and sagittal T1-weighted, T2-weighted, and STIR corine ges were acquired. Findings: There is no fracture or subluxation of the cervical spine. Vertebral bodies maintain normal height and alignment. No suspicious bone marrow signal abnormality seen. At C2-C3, there is minimal disc bulge. No spinal canal stenosis, cord compression, or neural foramina l narrowing evident. At C3-C4, there is tiny disc bulge. No spinal canal stenosis, cord compression, or definite neural fo raminal narrowing. There is bilateral facet arthropathy, left worse than right. At C4-C5, there is no significant disc bulge or herniation. No spinal canal stenosis, cord compressio n, or definite neural foraminal narrowing. There is mild bilateral facet arthropathy. At C5-C6, there is degenerative disc narrowing with disc osteophyte complex results in mild to modera te canal stenosis, but no shravan cord compression. There is bilateral neural foraminal narrowing, left worse than right. At C6-C7, there is advanced degenerative disc narrowing. There is central disc protrusion with bulge extending to left foraminal region. There is moderate to severe canal stenosis and moderate spinal co rd compression. There is severe left neural foraminal narrowing. Right neural foramen preserved. No abnormal signal seen in the spinal cord. Paravertebral soft tissues are unremarkable. Impression: Central disc protrusion with underlying disc bulge and additional degenerative changes C6-C7, resulti ng in moderate to severe canal stenosis and moderate spinal cord compression. Associated severe left neural foraminal narrowing at this level. Additional moderate degenerative spondylosis C5-C6, as detailed above. Minimal degenerative changes in the upper cervical spine. Reviewed, dictated and finalized at [facility]. ATIC COACH Impression: Central disc protrusion with underlying disc bulge and additional degenerative changes C6-C7, resulting in moderate to severe canal stenosis and moderate spin al cord compression. Associated severe left neural foraminal narrowing at this level. Additional moderate degenerative spondylosis C5-C6, as detailed above. Minimal degenerative changes in the upper cervical spine.
== END 2024-06-16 12:45 | disposition home or self-care (01) ==
LOC: ANHIMG 12:46
PROVIDERS: PCP Nurse Practitioner Adult Health; Visit Provider Anesthesiology Pain Medicine
DX: M47.22 Other spondylosis with radiculopathy, cervical region (principal); M50.20 Other cervical disc displacement, unspecified cervical region
CPT/HCPCS: 72141

== ENCOUNTER 2024-06-18 10:29 | Outpatient (CLI) | payer MEDICARE, MEDICAID, SELFPAY ==
[2024-06-18 10:45] LABS: Basophils Percent Auto 0.4 % (0.2-1.2); Eosinophils Absolute Auto 0.4 K/mm3 (0-0.3); Eosinophils Percent Auto 3.6 % (0-4.4); Hematocrit 37.4 % (37.0-47.0); Immature Granulocyte Absolute 0.07 K/mm3 (0.00-0.031); Immature Granulocyte Percent A 0.6 % (0-0.5); Lymphocytes Absolute Auto 1.99 K/mm3 (0.9-3.2); Lymphocytes Percent Auto 18.4 % (18.3-44.2); Mean Corpuscular HGB Conc 32.1 g/dl (32-36); Mean Corpuscular Hemoglobin 27.6 pg (26-34); Mean Corpuscular Volume 86.2 fl (80-100); Mean Platelet Volume 8.4 fl (7.4-10.4); Monocytes Absolute Auto 0.8 K/mm3 (0.1-0.6); Neutrophils Absolute Auto 7.6 K/mm3 (1.3-6.7); Platelet Count Result 180 k/mm3 (150-375); Red Blood Count 4.34 M/mm3 (4.2-5.4); Red Cell Distribution Width 14.5 % (11.5-14.5); White Blood Count 10.8 K/mm3 (4.5-10.0)
[2024-06-18 11:59] LABS: Anion Gap 7 mmol/L (4-12); Blood Urea Nitrogen 23 mg/dL (7-17); Calcium 9.4 mg/dL (8.4-10.2); Carbon Dioxide 30 mmol/L (22-30); Chloride 104 mmol/L (98-107); Estimated Glomerular Filt Rate 30; Glucose 121 mg/dL (65-110); Potassium 3.9 mmol/L (3.4-5.0); Sodium 141 mmol/L (137-145)
[2024-06-18 12:04] LABS: Iron 49 ug/dL (37-170)
[2024-06-18 12:19] LABS: Percent Iron Saturation 13 % (20-50)
== END 2024-06-18 10:30 | disposition home or self-care (01) ==
LOC: ANHLAB 10:30
PROVIDERS: PCP Nurse Practitioner Adult Health; Visit Provider Internal Medicine Hematology & Oncology
DX: D64.9 Anemia, unspecified (principal)
CPT/HCPCS: 36415; 80048; 82607; 82728; 82746; 83540; 83550; 85025

== ENCOUNTER 2024-06-29 14:25 | Outpatient (CLI) | payer MEDICARE, MEDICAID, SELFPAY ==
--- NOTE | ~2024-06-29 | MM_ITS ---
EXAMINATION: MM screening geovanny BI w ramo HISTORY: Screening TECHNIQUE: Craniocaudal and mediolateral oblique 3-D tomosynthesis images were obtained and synthetic 2-D images were generated. CAD analysis was submitted and interpreted. COMPARISON: Comparison to multiple prior studies sequentially, with oldest reviewed study dated 04/13. BREAST PARENCHYMAL COMPOSITION: Not dense: There are scattered areas of fibroglandular density. FINDINGS: There is no evidence of suspicious mass, calcification, or architectural distortion to sugg est malignancy in either breast. There has been no suspicious interval change. IMPRESSION: 1. No mammographic evidence of malignancy. 2. Recommend routine screening mammography in one year. BI-RADS Category 2: Benign finding(s). Reviewed, dictated and finalized at location [facility]. [employer]
--- OUTSIDE RECORDS SUMMARY | 2024-07-02 20:26 | XMS_ITS | Encounter Summary ---
Author Organization [facility] Address [address] [place] [address]. [place] [address] [place] [address] Care Team Providers Care Frame And Scrap Crusher Name Role Phone Unavailable Primary Care Provider Unavailabl e Encounter Details Date Type Department Care Team (Late st Contact Info) Description 06/04/[address] [facility] [address] [facility] [place] [place] [address] Homar Munguia MD [address] [place] [address] Social History Tobacco Use Types Packs/Day Years Used Date Smoking Tobacco: Never Assessed Comments Unknown Sex and Gender Information Value Date Recorded Sex Assigned at Not on file Legal Sex Female 8:51 PM CDT Gender Identity Not on file Sexual Orientation Not on file documented as of this encounter Plan of Treatment Not on file documented as of this encounter Visit Diagnoses Diagnosis Other screening mammogram documented in this encounter
--- OUTSIDE RECORDS SUMMARY | 2024-07-02 20:26 | XMS_ITS | Encounter Summary ---
Author Organization [facility] Address [address] [place] [address]. [place] [address] [place] [address] Care Team Providers Care Reinforcing Rod Layer Name Role Phone Unavailable Primary Care Provider Unavailabl e Encounter Details Date Type Department Care Team (Late st Contact Info) Description 02/05/2000 Abstract [facility] [address] [place] [address] , Generic Conversion, Social History Tobacco Use Types Packs/Day Years Used Date Smoking Tobacco: Never Assessed Comments Unknown Sex and Gender Information Value Date Recorded Sex Assigned at Not on file Legal Sex Female 8:51 PM CDT Gender Identity Not on file Sexual Orientation Not on file documented as of this encounter Plan of Treatment Not on file documented as of this encounter Visit Diagnoses Not on filedocumented in this encounter
--- OUTSIDE RECORDS SUMMARY | 2024-07-02 20:26 | XMS_ITS | Encounter Summary ---
Author Organization [facility] Address [address] [place] [address]. [place] [address] [place] [address] Care Team Providers Care Director Of Materials Name Role Phone Unavailable Primary Care Provider Unavailabl e Encounter Details Date Type Department Care Team (Late st Contact Info) Description 04/09/1987 Abstract [facility] [address] [place] [address] , Generic Conversion, Social History Tobacco Use [...]
--- OUTSIDE RECORDS SUMMARY | 2024-07-02 20:26 | XMS_ITS | Encounter Summary ---
Author Organization [facility] Address [address] [place] [address]. [place] [address] [place] [address] Care Team Providers Care Insurance Underwriter Name Role Phone Unavailable Primary Care Provider Unavailabl e Encounter Details Date Type Department Care Team (Late st Contact Info) Description 04/18/[address] [facility] [address] [facility] [place] [address] Homar Munguia MD [address] [place] [address] Social History Tobacco Use Types Packs/Day Years [...] of this encounter Visit Diagnoses Diagnosis Other cervical disc degeneration, unspecified cervical region documented in this encounter
--- OUTSIDE RECORDS SUMMARY | 2024-07-02 20:26 | XMS_ITS | Encounter Summary ---
Author Organization [facility] Address [address] [place] [address]. [place] [address] [place] [address] Care Team Providers Care Community Services Manager Name Role Phone Unavailable Primary Care Provider Unavailabl e Encounter Details Date Type Department Care Team (Late st Contact Info) Description 05/17/1999 Abstract [facility] [address] [place] [address] , Generic Conversion, Social History Tobacco Use [...]
--- OUTSIDE RECORDS SUMMARY | 2024-07-02 20:26 | XMS_ITS | Encounter Summary ---
Author Organization [facility] Address [address] [place] [address]. [place] [address] [place] [address] Care Team Providers Care Stem Lead Former Name Role Phone Unavailable Primary Care Provider Unavailabl e Encounter Details Date Type Department Care Team (Late st Contact Info) Description 08/19/1995 Abstract [facility] [address] [place] [address] , Generic Conversion, Social History Tobacco Use [...]
--- OUTSIDE RECORDS SUMMARY | 2024-07-02 20:26 | XMS_ITS | Encounter Summary ---
Author Organization [facility] Address [address] [place] [address]. [place] [address] [place] [address] Care Team Providers Care Health Analytics Consultant Name Role Phone Unavailable Primary Care Provider Unavailabl e Encounter Details Date Type Department Care Team (Late st Contact Info) Description 04/09/1987 Abstract [facility] [address] [place] [address] , Generic Conversion, Social History Tobacco Use [...]
--- OUTSIDE RECORDS SUMMARY | 2024-07-02 20:26 | XMS_ITS | Encounter Summary ---
Author Organization [facility] Address [address] [place] [address]. [place] [address] [place] [address] Care Team Providers Care Employee Benefits Administrator Name Role Phone Unavailable Primary Care Provider Unavailabl e Encounter Details Date Type Department Care Team (Late st Contact Info) Description 05/12/[address] [facility] [address] [facility] [place] [address] , Hiram Chambers MD Social History Tobacco Use Types Packs/Day Years [...]
--- OUTSIDE RECORDS SUMMARY | 2024-07-02 20:26 | XMS_ITS | Encounter Summary ---
Author Organization [facility] Address [address] [place] [address]. [place] [address] [place] [address] Care Team Providers Care Supervisor Multifocal Lens Name Role Phone Unavailable Primary Care Provider Unavailabl e Encounter Details Date Type Department Care Team (Late st Contact Info) Description 11/16/[address] [address] [facility] [place] [address] Homar Munguia MD [address] [place] [address] Social History Tobacco Use Types Packs/Day Years [...]
--- OUTSIDE RECORDS SUMMARY | 2024-07-02 20:26 | XMS_ITS | Encounter Summary ---
Author Organization [facility] Address [address] [place] [address]. [place] [address] [place] [address] Care Team Providers Care Lay Out Drafter Name Role Phone Unavailable Primary Care Provider Unavailabl e Encounter Details Date Type Department Care Team (Late st Contact Info) Description 07/29/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
--- OUTSIDE RECORDS SUMMARY | 2024-07-02 20:26 | XMS_ITS | Encounter Summary ---
Author Organization [facility] Address [address] [place] [address]. [place] [address] [place] [address] Care Team Providers Care Core Shaper Name Role Phone Unavailable Primary Care Provider Unavailabl e Encounter Details Date Type Department Care Team (Late st Contact Info) Description 02/04/[address] [address] [facility] [place] [place] [address] Homar Munguia MD [address] [place] [address] Social History Tobacco Use Types Packs/Day Years Used Date Smoking Tobacco: Never Assessed Comments Unknown Sex and Gender Information Value Date Recorded Sex Assigned at Not on file Legal Sex Female 8:51 PM CDT Gender Identity Not on file Sexual Orientation Not on file documented as of this encounter Plan of Treatment Not on file documented as of this encounter Visit Diagnoses Diagnosis Encounter for screening mammogram for malignant neoplasm of breast Other screening mammogram documented in this encounter
--- OUTSIDE RECORDS SUMMARY | 2024-07-02 20:26 | XMS_ITS | Encounter Summary ---
Author Organization [facility] Address [address] [place] [address]. [place] [address] [place] [address] Care Team Providers Care Director Of Product Management Name Role Phone Unavailable Primary Care Provider Unavailabl e Encounter Details Date Type Department Care Team (Late st Contact Info) Description 05/25/1998 Abstract [facility] [address] [place] [address] , Generic Conversion, Social History Tobacco Use [...]
--- OUTSIDE RECORDS SUMMARY | 2024-07-02 20:26 | XMS_ITS | Encounter Summary ---
Author Organization [facility] Address [address] [place] [address]. [place] [address] [place] [address] Care Team Providers Care Iron Setter Name Role Phone Unavailable Primary Care Provider Unavailabl e Encounter Details Date Type Department Care Team (Late st Contact Info) Description 09/09/[address] [address] [facility] [place] [address] Homar Munguia MD [address] [place] [address] Social History Tobacco Use Types Packs/Day Years [...]
--- OUTSIDE RECORDS SUMMARY | 2024-07-02 20:26 | XMS_ITS | Encounter Summary ---
Author Organization [facility] Address [address] [place] [address]. [place] [address] [place] [address] Care Team Providers Care Meat Butcher Name Role Phone Unavailable Primary Care Provider Unavailabl e Encounter Details Date Type Department Care Team (Late st Contact Info) Description 03/15/[address] [address] [facility] [place] [address] , Hiram Chambers MD Social History Tobacco [...]
--- OUTSIDE RECORDS SUMMARY | 2024-07-02 20:26 | XMS_ITS | Encounter Summary ---
Author Organization [facility] Address [address] [place] [address]. [place] [address] [place] [address] Care Team Providers Care Executive Vice President Business Development Name Role Phone Unavailable Primary Care Provider Unavailabl e Encounter Details Date Type Department Care Team (Late st Contact Info) Description 04/02/1999 Abstract [facility] [address] [place] [address] , Generic Conversion, Social History Tobacco Use [...]
--- OUTSIDE RECORDS SUMMARY | 2024-07-02 20:26 | XMS_ITS | Clinical Summary ---
Author Organization [facility] Address [address] [place] [address]. [place], [place] [address] [place] [address] Care Team Providers Care Machine Cleaner Name Role Phone Unavailable Primary Care Provider Unavailabl e Social History Tobacco Use Types Packs/Day Years Used Date Smoking Tobacco: Never Assessed Comments Unknown Sex and Gender Information Value Date Recorded Sex Assigned at Not on file Legal Sex Female 8:51 PM CDT Gender Identity Not on file Sexual Orientation Not on file Plan of Treatment Health Maintenance Due Date Last Done Comments Colorectal Cancer Screening Colonoscopy (10 Years) 1952 Hepatitis C 1970 DTaP, Tdap and Td Vaccines ( 1 - Tdap) 1971 Mammogram Screening 1992 Zoster Vaccines (1 of 2) 2002 RSV Immunization or 60+ Years (1 - 1-dose 60+ series) 2012 Dexa Scan (General) 2017 Pneumococcal Vaccine: 65+ Ye ars (1 of 1 - PCV) 2017 COVID-19 Vaccine ( - 2023-2 5 season) 2024 Influenza Adult (#1) 2024 Meningococcal Vaccine Aged Out No radha michael eligible based on patient's age to complete this topic RSV Immunizations Under 20 Months Aged Out No longer eligible based on patient's age to complete this topic
--- OUTSIDE RECORDS SUMMARY | 2024-07-02 20:26 | XMS_ITS | Encounter Summary ---
Author Organization [facility] Address [address] [place] [address]. [place] [address] [place] [address] Care Team Providers Care Railway Shunter Name Role Phone Unavailable Primary Care Provider Unavailabl e Encounter Details Date Type Department Care Team (Late st Contact Info) Description 02/17/2006 Abstract [facility] [address] [place] [address] , Hiram Chambers MD Social History Tobacco [...]
--- OUTSIDE RECORDS SUMMARY | 2024-07-02 20:26 | XMS_ITS | Encounter Summary ---
Author Organization [facility] Address [address] [place] [address]. [place] [address] [place] [address] Care Team Providers Care Thread Laster Name Role Phone Unavailable Primary Care Provider Unavailabl e Encounter Details Date Type Department Care Team (Late st Contact Info) Description 03/01/[address] [address] [facility] [place] [address] Homar Munguia MD [address] [place] [address] Social History Tobacco Use Types Packs/Day Years [...]
--- OUTSIDE RECORDS SUMMARY | 2024-07-02 20:26 | XMS_ITS | Encounter Summary ---
Author Organization [facility] Address [address] [place] [address]. [place] [address] [place] [address] Care Team Providers Care Civilian Technician Name Role Phone Unavailable Primary Care Provider Unavailabl e Encounter Details Date Type Department Care Team (Late st Contact Info) Description 11/07/[address] [address] [facility] [place] [address] Homar Munguia MD [address] [place] [address] Social History Tobacco Use Types Packs/Day Years [...]
--- OUTSIDE RECORDS SUMMARY | 2024-07-02 20:26 | XMS_ITS | Encounter Summary ---
Author Organization [facility] Address [address] [place] [address]. [place] [address] [place] [address] Care Team Providers Care Sorter Operator Name Role Phone Unavailable Primary Care Provider Unavailabl e Encounter Details Date Type Department Care Team (Late st Contact Info) Description 07/17/[address] 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
--- OUTSIDE RECORDS SUMMARY | 2024-07-02 20:26 | XMS_ITS | Encounter Summary ---
Author Organization [facility] Address [address] [place] [address]. [place] [address] [place] [address] Care Team Providers Care Ripening Room Attendant Name Role Phone Unavailable Primary Care Provider Unavailabl e Encounter Details Date Type Department Care Team (Late st Contact Info) Description 05/02/[address] [address] [facility] [place] [address] Homar Munguia MD [address] [place] [address] Social History Tobacco Use Types Packs/Day Years [...]
--- OUTSIDE RECORDS SUMMARY | 2024-07-02 20:26 | XMS_ITS | Encounter Summary ---
Author Organization [facility] Address [address] [place] [address]. [place] [address] [place] [address] Care Team Providers Care Heel Seater Name Role Phone Unavailable Primary Care Provider Unavailabl e Encounter Details Date Type Department Care Team (Late st Contact Info) Description 05/09/[address] [address] [facility] [place] [address] Homar Munguia MD [address] [place] [address] Social History Tobacco Use Types Packs/Day Years Used Date Smoking Tobacco: Never Assessed Comments Unknown Sex and Gender Information Value Date Recorded Sex Assigned at Not on file Legal Sex Female 8:51 PM CDT Gender Identity Not on file Sexual Orientation Not on file documented as of this encounter Plan of Treatment Not on file documented as of this encounter Visit Diagnoses Diagnosis Abnormal mammogram Abnormal mammogram, unspecified documented in this encounter
--- OUTSIDE RECORDS SUMMARY | 2024-07-02 20:29 | XMS_ITS | Encounter Summary ---
Author Organization [facility] Address [address] [facility] [place] [address] Phone Care Team Providers Care Distillery Worker Name Role Phone Angel Cottrell DO Primary Care Provider [phone]- [phone] Reason for Referral * Radiology Services (Routine) - Closed Specialty Diagnoses / Procedures Referred By Jd minor Referred To Contact Radiology Diagnoses Dizziness and giddiness Diabetes mellitus without complication (HCC) Procedures US BILATERAL CAROTID DUPLEX Angel Cottrell DO [address] [place] [address] Phone: tel: fax: Referral ID Status Reason Start Date Expiration Date Visits Re quested Visits Authorized [id number] Closed 01/17/2020 1 1 Reason for Visit * Radiology Services (Routine) - Closed Specialty Diagnoses / Procedures Referred By Jd minor Referred To Contact Radiology Diagnoses Dizziness and giddiness Diabetes mellitus without complication (HCC) Procedures US BILATERAL CAROTID DUPLEX Angel Cottrell DO [address] [place] [address] Phone: tel: fax: Referral ID Status Reason Start Date Expiration Date Visits Re quested Visits Authorized [id number] Closed 01/17/2020 1 1 Encounter Details Date Type Department Care Team (Latest Contact Info) Description 01/26/2020 9:30 AM CDT - 01/26/2020 11:59 PM CDT [facility] [address] [place] [address] Angel Cottrell, DO [address] [place] [address] Discharge Disposition: Discharged to home or Selfcare Social History Tobacco Use Types Packs/Day Years Used Date Smoking Tobacco: Former Cigarettes 2 35 0 09/27/1971 - 09/26/2006 Smokeless Tobacco: Never Comments:2006 Alcohol Use Standard Drinks/Week Comments No 0 (1 standard drink = 0.6 oz pur e alcohol) Comments No Sex and Gender Information Value Date Recorded Sex Assigned at Not on file Legal Sex Female 2:49 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 No / Unsure 01/26/2020 8:59 AM CDT documented as of this encounter Medications at Time of Discharge amLODIPine (NORVASC) 5 MG Tablet Take 1 Tab by mouth daily. 30 Tab 05/22/2019 betamethasone valerate (VALISONE) 0.1 % Cream Apply 2 times daily. Application Site: Back of neck and behind ears glimepiride (AMARYL) 1 MG Tablet Take 1 mg by mouth every morning. lisinopril (PRINIVIL, ZESTRIL) 20 MG Tablet Take 20 mg by mouth daily. Magnesium Oxide 400 MG Capsule Take 400 mg by mouth daily. metFORMIN (GLUCOPHAGE) 1000 MG Tablet Take 1,000 mg by mouth daily. omeprazole (PRILOSEC) 40 MG CAPSULE DELAYED RELEASE Take 1 Cap by mouth 2 times daily. 60 Cap 3 09/15/2018 documented as of this encounter Plan of Treatment Not on file documented as of this encounter Procedures Procedure Name Priority Date/Time Associated Diagnosis Comments US BILATERAL CAROTID DUPLEX Routine 01/26/2020 9:37 AM CDT Dizziness and giddiness Diabetes mellitus without complication (HCC) documented in this encounter Results * US BILATERAL CAROTID DUPLEX (01/26/2020 9:37 AM CDT) Anatomical Region Laterality Modality vascular Bilateral Ultrasound 01/27/2020 6:49 AM CDT Impressions 01/27/2020 6:52 AM CDT IMPRESSION: ?? 1. ??Velocities correspond to a ??less than 50percent diameter stenosis of the right ICA. 2. ??Velocities correspond to a ??less than 50percent diameter stenosis of the left ICA. 3. ?? Antegrade direction of flow of the bilateral vertebral arteries. REFERENCE: ??Consensus Panel Hudson-Scale and Doppler US Criteria for Diagnosis of ICA Stenosis. No stenosis: ICA PSV <125*, 0 percent plaque, ICA/CCA PSV Ratio <2.0, ICA EDV <40*. <50 percent stenosis: ICA PSV <125*, <50 percent plaque, ICA/CCA PSV Ratio <2.0, ICA EDV <40*. 50-69 percent stenosis: ICA PSV 125-230*, >=50 percent plaque, ICA/CCA PSV Ratio 2.0-4.0, ICA EDV 40-100*. >=70 percent but less than near occlusion >230, >=50 percent plaque, ICA/CAA PSV Ratio >4.0, ICA EDV >100*. *cm/sec Plaque estimate (diameter reduction) with hudson-scale and color Doppler US. RSNA 2003 Narrative 01/27/2020 6:52 AM CDT EXAM DESCRIPTION: ?? US BILATERAL CAROTID DUPLEX REASON FOR STUDY: ??Dizziness and giddiness, symptoms for 1 month. TECHNIQUE: ??Hudson scale, color Doppler and spectral Doppler imaging were performed. ??Velocity criteria are extrapolated from diameter as defined by the Society of Radiologists in Ultrasound Consensus Conference. All velocity measurements are in cm/sec. COMPARISON: ?? None. FINDINGS: ??Right: Mild intimal thickening and plaque are seen. Distal CCA Peak Systolic Velocity: ??141 Distal CCA End Diastolic Velocity: ??21 Peak ICA Systolic Velocity: ??69 ICA End Diastolic Velocity: ??14 Peak ICA/CCA Systolic Ratio: ??0.5 Right Vertebral Artery: ?? Antegrade direction of flow. Left: Mild intimal thickening and plaque are seen. Distal CCA Peak Systolic Velocity: 101 Distal CCA End Diastolic Velocity: 23 Peak ICA Systolic Velocity: 85 ICA End Diastolic Velocity: 20 Peak ICA/CCA Systolic Ratio: 0.8 Left Vertebral Artery: ?? Antegrade direction of flow. THIS IS AN ELECTRONICALLY VERIFIED FINAL REPORT 01/27/2020 6:49 AM - Electronically signed by Leo Boone M.D. CH: KINGS D: ??01/27/2020 6:49 AM T: ??01/27/2020 6:49 AM Report ID: [id number] Reading Location: ??[id number] Procedure Note Leo Boone Jr., MD - 01/27/2020 EXAM DESCRIPTION: US BILATERAL CAROTID DUPLEX REASON FOR STUDY: Dizziness and giddiness, symptoms for 1 month. TECHNIQUE: Hudson scale, color Doppler and spectral Doppler imaging were performed. Velocity criteria are extrapolated from diameter as defined by the Society of Radiologists in Ultrasound Consensus Conference. All velocity measurements are in cm/sec. COMPARISON: None. FINDINGS: Right: Mild intimal thickening and plaque are seen. Distal CCA Peak Systolic Velocity: 141 Distal CCA End Diastolic Velocity: 21 Peak ICA Systolic Velocity: 69 ICA End Diastolic Velocity: 14 Peak ICA/CCA Systolic Ratio: 0.5 Right Vertebral Artery: Antegrade direction of flow. Left: Mild intimal thickening and plaque are seen. Distal CCA Peak Systolic Velocity: 101 Distal CCA End Diastolic Velocity: 23 Peak ICA Systolic Velocity: 85 ICA End Diastolic Velocity: 20 Peak ICA/CCA Systolic Ratio: 0.8 Left Vertebral Artery: Antegrade direction of flow. THIS IS AN ELECTRONICALLY VERIFIED FINAL REPORT 01/27/2020 6:49 AM - Electronically signed by Leo Boone M.D. CH: KINGS Report ID: [id number] Reading Location: [place] [address] IMPRESSION: 1. Velocities correspond to a less than 50percent diameter stenosis of the right ICA. 2. Velocities correspond to a less than 50percent diameter stenosis of the left ICA. 3. Antegrade direction of flow of the bilateral vertebral arteries. REFERENCE: Consensus Panel Hudson-Scale and Doppler US Criteria for Diagnosis of ICA Stenosis. No stenosis: ICA PSV <125*, 0 percent plaque, ICA/CCA PSV Ratio <2.0, ICA EDV <40*. <50 percent stenosis: ICA PSV <125*, <50 percent plaque, ICA/CCA PSV Ratio <2.0, ICA EDV <40*. 50-69 percent stenosis: ICA PSV 125-230*, >=50 percent plaque, ICA/CCA PSV Ratio 2.0-4.0, ICA EDV 40-100*. >=70 percent but less than near occlusion >230, >=50 percent plaque, ICA/CAA PSV Ratio >4.0, ICA EDV >100*. *cm/sec Plaque estimate (diameter reduction) with hudson-scale and color Doppler US. RSNA 2002 us Angel Cottrell DO [facility] [place] ORDERABLES Final Re sult documented in this encounter Visit Diagnoses Diagnosis Dizziness and giddiness Diabetes mellitus without complication (HCC) Type II or unspecified type diabetes mellitus without mention of complication, not stated as uncontrolled documented in this encounter Care Teams Distillery Worker Relationship Specialty Start Date End Date Angel Cottrell DO [address] [place] [address] PCP - General Family Medicine 07/26/18 06/27/22 documented as of this encounter
--- OUTSIDE RECORDS SUMMARY | 2024-07-02 20:29 | XMS_ITS | Encounter Summary ---
Author Organization [facility] Address [address] [facility] [place] [address] Phone Care Team Providers Care Rescue Boat Operator Name Role Phone Angel Cottrell DO Primary Care Provider [phone] Reason for Referral * Radiology Services (Routine) - Closed Specialty Diagnoses / Procedures Referred By Contac t Referred To Contact Radiology Diagnoses Chronic kidney disease, stage III (moderate) (HCC) Essential hypertension Type 2 diabetes mellitus without complication, unspecified whether zipper trimmer insulin use (HCC) Procedures [place] [address] [place] [address] Phone: tel: fax: Referral ID Status Reason Start Date Expiration Date Visits Re quested Visits Authorized [id number] Closed 03/18/2020 1 1 Encounter Details Date Type Department Care Team (Late st Contact Info) Description 03/18/2020 Transcribe Orders [facility] Central Scheduling [address] [place] [address] Hay Jerez DO [address] [place] [address] Chronic kidney disease, stage III (moderate) (HCC) (Primary Dx); Essential hypertension; Type 2 diabetes mellitus without complication, unspecified whether zipper trimmer insulin use (HCC) Social History Tobacco Use Types Packs/Day Years Used Date Smoking Tobacco: Former Cigarettes 2 35 0 09/27/1971 - 09/26/2006 Smokeless Tobacco: Never Comments:2006 Alcohol Use Standard Drinks/Week Comments No 0 (1 standard drink = 0.6 oz pur e alcohol) Comments No Sex and Gender Information Value Date Recorded Sex Assigned at Not on file 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 No hydronephrosis Left kidney superior pole 1.4 cm nonobstructing stone. Narrative 03/27/2020 2:49 PM CDT EXAM DESCRIPTION: ?? US RENAL COMPLETE REASON FOR STUDY: ?? Chronic kidney disease, stage 3 (moderate) TECHNIQUE: ??Ultrasound of the kidneys and urinary bladder was performed with grayscale imaging. COMPARISON: ?? None available FINDINGS: ??RIGHT KIDNEY: The right kidney measures ??9.7 cm in length. ??There is no hydronephrosis. ??There is normal cortical thickness and echogenicity. LEFT KIDNEY: The left kidney measures ??10.7 cm in length. ??There is no hydronephrosis. ??A 1.4 cm stone is present within the superior pole there is normal cortical thickness and echogenicity. URINARY BLADDER: ??The urinary bladder, as visualized, appears unremarkable. ??The bilateral ureteral jets are visualized. Prevoid bladder volume = 73 mL. Postvoid bladder volume = 7 mL. OTHER: ??No other additional findings. THIS IS AN ELECTRONICALLY VERIFIED FINAL REPORT 03/27/2020 2:47 PM - Electronically signed by Hayder John M.D. JA: DENIS D: ??03/27/2020 2:47 PM T: ??03/27/2020 2:47 PM Report ID: [id number] Reading Location: ??[id number] Procedure Note Hayder John MD - 03/27/2020 EXAM DESCRIPTION: US RENAL COMPLETE REASON FOR STUDY: Chronic kidney disease, stage 3 (moderate) TECHNIQUE: Ultrasound of the kidneys and urinary bladder was performed with grayscale imaging. COMPARISON: None available FINDINGS: RIGHT KIDNEY: The right kidney measures 9.7 cm in length. There is no hydronephrosis. There is normal cortical thickness and echogenicity. LEFT KIDNEY: The left kidney measures 10.7 cm in length. There is no hydronephrosis. A 1.4 cm stone is present within the superior pole there is normal cortical thickness and echogenicity. URINARY BLADDER: The urinary bladder, as visualized, appears unremarkable. The bilateral ureteral jets are visualized. Prevoid bladder volume = 73 mL. Postvoid bladder volume = 7 mL. OTHER: No other additional findings. THIS IS AN ELECTRONICALLY VERIFIED FINAL REPORT 03/27/2020 2:47 PM - Electronically signed by Hayder John M.D. JA: DENIS Report ID: [id number] Reading Location: [id number] IMPRESSION: No hydronephrosis Left kidney superior pole 1.4 cm nonobstructing stone. us Hay Jerez DO [facility] [place] ORDERABLES Final Res ult documented in this encounter Visit Diagnoses Diagnosis Chronic kidney disease, stage III (moderate) (HCC)- Primary Chronic kidney disease, Stage III (moderate) Essential hypertension Unspecified essential hypertension Type 2 diabetes mellitus without complication, unspecified whether mcfp insulin use (HCC) Chronic kidney disease, stage III (moderate) (HCC) Chronic kidney disease, Stage III (moderate) Essential hypertension Unspecified essential hypertension Type 2 diabetes mellitus without complication, unspecified whether zipper trimmer insulin use (HCC) documented in this encounter Care Teams Rescue Boat Operator Relationship Specialty Start Date End Date Angel Cottrell DO [address] [place] [address] PCP - General Family Medicine 07/26/18 06/27/22 documented as of this encounter
--- OUTSIDE RECORDS SUMMARY | 2024-07-02 20:29 | XMS_ITS | Encounter Summary ---
Author Organization [facility] Address [address] [facility] [place] [address] Phone Care Team Providers Care Occupational Medicine Officer Name Role Phone Angel Cottrell Elida GARCIA Primary Care Provider [phone]- [phone] Reason for Referral * Radiology Services (Routine) - Closed Specialty Diagnoses / Procedures Referred By Contac t Referred To Contact Radiology Diagnoses Cervicalgia Procedures MRI C-SPINE W/O CONTRAST Provider, Not On File [place] Referral ID Status Reason Start Date Expiration Date Visits Re quested Visits Authorized Closed 06/24/2022 1 1 ICIAN NON INVASIVE CARDIOLOGIST Encounter Details Date Type Department Care Team (Late st Contact Info) Description 06/24/2022 Transcribe Orders [facility] Central Scheduling [address] [place] [address] Jania Carter, CHAPLAIN RESIDENT, SOLAR APPLICATIONS DEVELOPMENT ENGINEER [address] [place] [address] Cervicalgia (Primary Dx) Social History Tobacco Use Types Packs/Day Years Used Date Smoking Tobacco: Former Cigarettes 2 35 0 09/27/1971 - 09/26/2006 Smokeless Tobacco: Never Comments:2006 Alcohol Use Standard Drinks/Week Comments No 0 (1 standard drink = 0.6 oz pur e alcohol) Comments No Sex and Gender Information Value Date Recorded Sex Assigned at Not on file Legal Sex Female 2:49 PM PHYSICIAN NON INVASIVE CARDIOLOGIST Gender Identity Not on file Sexual Orientation Not on file documented as of this encounter Plan of Treatment Not on file documented as of this encounter Results * MRI C-SPINE W/O CONTRAST (07/07/2022 5:52 PM PHYSICIAN NON INVASIVE CARDIOLOGIST) Anatomical Region Laterality Modality Spine, C-spine N/A Magnetic Resonan ce 07/08/2022 8:30 AM PHYSICIAN NON INVASIVE CARDIOLOGIST Impressions 07/08/2022 8:33 AM PHYSICIAN NON INVASIVE CARDIOLOGIST IMPRESSION: ?? Constellation of spondylolisthesis, with straightening of the cervical lordosis, spondylosis, and degenerative disc disease of the cervical spine as detailed level by level above. Narrative 07/08/2022 8:33 AM PHYSICIAN NON INVASIVE CARDIOLOGIST EXAM DESCRIPTION: ?? MRI C-SPINE W/O CONTRAST REASON FOR STUDY: ?? Chronic neck pain radiating down the left arm. ?? No provided history of trauma or inciting and/or aggravating events. History of diabetes, hypertension, and asthma. ??No intracranial, vascular, and/or spinal surgeries; history of cataract surgeries. TECHNIQUE: Sagittal and axial imaging of the cervical spine includes T1, T2, STIR and gradient echo sequences. ?? Images saved to PACS. COMPARISON: ?? Relevant portions of CT head without contrast 05/21/2019; 01/02/2009. FINDINGS: ??ALIGNMENT: ?? Redemonstration of minimal anterolisthesis C4 on C5 in association with straightening of the cervical lordosis. VERTEBRAE: ?? No MR evidence of acute-subacute fracture. ??Vertebral body heights unchanged. ??Spondylosis. ??Marrow signal within normal limits. DISCS: ?? Multilevel variable intervertebral disc desiccation and loss of intervertebral disc height about the visualized cervicothoracic spine, again maximal at C5-6. HARDWARE: ?? None in the cervical spine. CORD: ?? Normal in size and signal intensity. INDIVIDUAL LEVELS: C1-C2: ?? No spinal canal stenosis. C2-C3: ?? Right eccentric central disc protrusion indenting the ventral thecal sac. ??Bilateral facet arthropathy. ??No spinal canal stenosis. ??No neural foraminal stenosis. C3-C4: ?? Small central disc protrusion indenting the ventral thecal sac. ??Bilateral hypertrophic facet arthropathy. ??No spinal canal stenosis. ??No neural foraminal stenosis. C4-C5: ?? Slight posterior disc osteophyte complex with shallow broad-based central disc protrusion indenting the ventral thecal sac. ??Bilateral hypertrophic facet arthropathy. ??No spinal canal stenosis. ??No neural foraminal stenosis. C5-C6: ?? Posterior disc osteophyte complex with annular disc bulge and lobulated broad-based central disc protrusion abutting the ventral spinal cord. ??Bilateral hypertrophic facet arthropathy. ?? Bilateral uncovertebral joint disease. ??Mild-moderate spinal canal stenosis. ??Severe left and moderate right neural foraminal stenosis, noting combination of osteophytosis/disc and arthropathic facet contact with exiting bilateral, left greater than right, C6 nerve roots. C6-C7: ?? Posterior disc osteophyte complex with posterior disc bulge with central disc protrusion indenting the ventral spinal cord. ?? Bilateral hypertrophic facet arthropathy. ??Bilateral uncovertebral joint disease. ??Moderate-severe spinal canal stenosis. ??Severe bilateral, left greater than right, neural foraminal stenosis, noting combination of disc and arthropathic facet contact with the exiting bilateral, left greater than right, C7 nerve roots. C7-T1: ?? Tiny shallow right eccentric central disc protrusion slightly indenting the ventral thecal sac. ??Bilateral hypertrophic facet arthropathy. ??No spinal canal stenosis. ??Mild bilateral neural foraminal stenosis, noting variable slight arthropathic facet contact with the exiting bilateral C8 nerve roots. BASE OF BRAIN: ?? No significant finding. UPPER THORACIC: ?? Incompletely imaged. No significant spinal stenosis or foraminal stenosis. OTHER: ?? No other significant finding. THIS IS AN ELECTRONICALLY VERIFIED FINAL REPORT 07/08/2022 8:30 AM - Electronically signed by ??Darnell Yao M.D. SANDRO: SANDRO D: ??07/08/2022 8:30 AM T: ??07/08/2022 8:30 AM Report ID: [id number] Reading Location: ??[id number] Procedure Note Darnell Yao MD - 07/08/2022 EXAM DESCRIPTION: MRI C-SPINE W/O CONTRAST REASON FOR STUDY: Chronic neck pain radiating down the left arm. No provided history of trauma or inciting and/or aggravating events. History of diabetes, hypertension, and asthma. No intracranial, vascular, and/or spinal surgeries; history of cataract surgeries. TECHNIQUE: Sagittal and axial imaging of the cervical spine includes T1, T2, STIR and gradient echo sequences. Images saved to PACS. COMPARISON: Relevant portions of CT head without contrast 05/21/2019; 01/02/2009. FINDINGS: ALIGNMENT: Redemonstration of minimal anterolisthesis C4 on C5 in association with straightening of the cervical lordosis. VERTEBRAE: No MR evidence of acute-subacute fracture. Vertebral body heights unchanged. Spondylosis. Marrow signal within normal limits. DISCS: Multilevel variable intervertebral disc desiccation and loss of intervertebral disc height about the visualized cervicothoracic spine, again maximal at C5-6. HARDWARE: None in the cervical spine. CORD: Normal in size and signal intensity. INDIVIDUAL LEVELS: C1-C2: No spinal canal stenosis. C2-C3: Right eccentric central disc protrusion indenting the ventral thecal sac. Bilateral facet arthropathy. No spinal canal stenosis. No neural foraminal stenosis. C3-C4: Small central disc protrusion indenting the ventral thecal sac. Bilateral hypertrophic facet arthropathy. No spinal canal stenosis. No neural foraminal stenosis. C4-C5: Slight posterior disc osteophyte complex with shallow broad-based central disc protrusion indenting the ventral thecal sac. Bilateral hypertrophic facet arthropathy. No spinal canal stenosis. No neural foraminal stenosis. C5-C6: Posterior disc osteophyte complex with annular disc bulge and lobulated broad-based central disc protrusion abutting the ventral spinal cord. Bilateral hypertrophic facet arthropathy. Bilateral uncovertebral joint disease. Mild-moderate spinal canal stenosis. Severe left and moderate right neural foraminal stenosis, noting combination of osteophytosis/disc and arthropathic facet contact with exiting bilateral, left greater than right, C6 nerve roots. C6-C7: Posterior disc osteophyte complex with posterior disc bulge with central disc protrusion indenting the ventral spinal cord. Bilateral hypertrophic facet arthropathy. Bilateral uncovertebral joint disease. Moderate-severe spinal canal stenosis. Severe bilateral, left greater than right, neural foraminal stenosis, noting combination of disc and arthropathic facet contact with the exiting bilateral, left greater than right, C7 nerve roots. C7-T1: Tiny shallow right eccentric central disc protrusion slightly indenting the ventral thecal sac. Bilateral hypertrophic facet arthropathy. No spinal canal stenosis. Mild bilateral neural foraminal stenosis, noting variable slight arthropathic facet contact with the exiting bilateral C8 nerve roots. BASE OF BRAIN: No significant finding. UPPER THORACIC: Incompletely imaged. No significant spinal stenosis or foraminal stenosis. OTHER: No other significant finding. THIS IS AN ELECTRONICALLY VERIFIED FINAL REPORT 07/08/2022 8:30 AM - Electronically signed by Darnell Yao M.D. SANDRO: SANDRO Report ID: [id number] Reading Location: [place] [address] IMPRESSION: Constellation of spondylolisthesis, with straightening of the cervical lordosis, spondylosis, and degenerative disc disease of the cervical spine as detailed level by level above. us Not On File Provider IMG MR ORDERABLES Final Res ult documented in this encounter Visit Diagnoses Diagnosis Cervicalgia- Primary Cervicalgia documented in this encounter Care Teams Occupational Medicine Officer Relationship Specialty Start Date End Date Angel Cottrell DO [address] [place] [address] PCP - General Family Medicine 07/26/18 06/27/22 documented as of this encounter
--- OUTSIDE RECORDS SUMMARY | 2024-07-02 20:29 | XMS_ITS | Encounter Summary ---
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 No / Unsure 03/27/2020 10:07 AM CDT documented as of this encounter Plan of Treatment Not on file documented as of this encounter Visit Diagnoses Not on filedocumented in this encounter Care Teams Breadman Relationship Specialty Start Date End Date Angel Cottrell DO [address] [place] [address] PCP - General Family Medicine 07/26/18 06/27/22 documented as of this encounter
--- OUTSIDE RECORDS SUMMARY | 2024-07-02 20:29 | XMS_ITS | Clinical Summary ---
Author Organization [facility] Address [address] [address] Phone Care Team Providers Care Line Maintenance Supervisor Name Role Phone Wiley Causey MD Primary Care Provider [phone] Allergies Active Allergy Reactions Criticality Noted Date Comments Other Rash 09/15/2018 2 Cholesterol medications caused a rash. Patient does not know the name of either. Budesonide-Formotero l Fumarate Other (see Comments) 09/15/2018 Muscle spasms Tramadol Hives 09/15/2018 Medications metFORMIN (GLUCOPHAGE) 1000 MG Tablet Take 1,000 mg by mouth daily. Active lisinopril (PRINIVIL, ZESTRIL) 20 MG Tablet Take 20 mg by mouth daily. Active glimepiride (AMARYL) 1 MG Tablet Take 1 mg by mouth every morning. Active Magnesium Oxide 400 MG Capsule Take 400 mg by mouth daily. Active betamethasone valerate (VALISONE) 0.1 % Cream Apply 2 times daily. Application Site: Back of neck and behind ears Active omeprazole (PRILOSEC) 40 MG CAPSULE DELAYED RELEASE Take 1 Cap by mouth 2 times daily. 60 Cap 3 9 Active amLODIPine (NORVASC) 5 MG Tablet Take 1 Tab by mouth daily. 30 Tab 9 Active Family History Medical History Relation Name Comments Congenital Heart Disease Brother Heart Disease Brother Leukemia/Lymphoma Father Cirrhosis Mother Diabetes Mother Hepatitis Mother Colon Cancer Paternal Grandmother Relation Name Status Comments Brother Father Mother Paternal Grandmother Social History Tobacco Use Types Packs/Day Years Used Date Smoking Tobacco: Former Cigarettes 2 35 0 09/27/1971 - 09/26/2006 Smokeless Tobacco: Never Tobacco Cessation:Counseling Given: Yes Comments:2006 Alcohol Use Standard Drinks/Week Comments No 0 (1 standard drink = 0.6 oz pur e alcohol) Comments No Sex and Gender Information Value Date Recorded Sex Assigned at Not on file Legal Sex Female 2:49 PM MARKETING CO OP Gender Identity Not on file Sexual Orientation Not on file Last Filed Vital Signs Vital Sign Reading Time Taken Comments Blood Pressure 171/96 05/22/2019 12:50 AM MARKETING CO OP Pulse 93 05/22/2019 12:50 AM MARKETING CO OP Temperature 37.1 ??C (98.7 ??F) 05/21/2019 8:14 PM CS T Respiratory Rate 30 05/22/2019 12:50 AM MARKETING CO OP Oxygen Saturation 90% 05/22/2019 12:50 AM MARKETING CO OP Inhaled Oxygen Concentration - - Weight 104.3 kg (230 lb) 05/21/2019 8:14 PM MARKETING CO OP Height 157.5 cm (5' 2 ) 05/21/2019 8:14 PM MARKETING CO OP Body Mass Index 42.07 05/21/2019 8:14 PM MARKETING CO OP Plan of Treatment Health Maintenance Due Date Last Done Comments DEXA Bone Density 1950 Hepatitis C Virus (HCV) Screening 1950 TdaP Immunization 1950 Cologuard 2002 Immunochemical Fecal Occult Blood 2002 Mammogram 2002 Pneumococcal Immunization (6 5+ years) (2 of 2 - PPSV23 or PCV20) 07/18/2018 07/18/2017, 04/05/2017 Colonoscopy 09/27/2023 09/26/2018 Colorectal Cancer Screening 09/27/2023 Influenza Immunization (#1) 2024 SARS-COV-2 Immunization ( season) 2024 Respiratory Syncytial Virus (RSV) Immunization (Adult) (1 - 1-dose 75+ series) 2027 09/26/2018 Pneumococcal Immunization Combined Discontinued 07/18/2017, 04/05/2017 Zoster Immunization Completed 07/02/2022, 04/30/2022 Hepatitis B Immunization Aged Out No longer eligible based on patient's age to complete this topic Meningococcal Immunization (ACWY) Aged Out No longer eligible based on patient's age to complete this topic Rotavirus Immunization Aged Out No lo nger eligible based on patient's age to complete this topic Insurance MEDICARE C [place] Care Teams Line Maintenance Supervisor Relationship Specialty Start Date End Date Wiley Causey MD PCP - General Family Medicine 06/28/22
--- OUTSIDE RECORDS SUMMARY | 2024-07-02 20:29 | XMS_ITS | Encounter Summary ---
Author Organization [facility] Address [address] [place] [address] Phone Care Team Providers Care Purchasing Analyst Name Role Phone Angel Cottrell DO Primary Care Provider [phone] Reason for Referral * Radiology Services (Routine) - Closed Specialty Diagnoses / Procedures Referred By Jd t Referred To Contact Radiology Diagnoses Chronic kidney disease, stage III (moderate) (HCC) Essential hypertension Type 2 diabetes mellitus without complication, unspecified whether intermediate teacher insulin use (HCC) Procedures [place] [address] [place] [address] Phone: tel: fax: Referral ID Status Reason Start Date Expiration Date Visits Re quested Visits Authorized [id number] Closed 03/18/2020 1 1 Reason for Visit * Radiology Services (Routine) - Closed Specialty Diagnoses / Procedures Referred By Contac t Referred To Contact Radiology Diagnoses Chronic kidney disease, stage III (moderate) (HCC) Essential hypertension Type 2 diabetes mellitus without complication, unspecified whether intermediate teacher insulin use (HCC) [place] [address] [place] [address] Phone: tel: fax: Referral ID Status Reason Start Date Expiration Date Visits Re quested Visits Authorized [id number] Closed 03/18/2020 1 1 Encounter Details Date Type Department Care Team (Latest Contact Info) Description 03/27/2020 10:10 AM CDT - 03/27/2020 11:59 PM CDT Hospital Encounter [facility] Ultrasound [address] [place] [address] Hay Jerez DO [address] [place] [address] Discharge Disposition: Discharged to home or Selfcare [...] on file 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 JA: DENIS Report ID: [id number] Reading Location: [id number] IMPRESSION: No hydronephrosis Left kidney superior pole 1.4 cm nonobstructing stone. us Hay Jerez DO IMG US ORDERABLES Final Res ult documented in this encounter Visit Diagnoses Diagnosis Chronic kidney disease, stage III (moderate) (HCC) Chronic kidney disease, Stage III (moderate) Essential hypertension Unspecified essential hypertension Type 2 diabetes mellitus without complication, unspecified whether fdc insulin use (HCC) documented in this encounter Care Teams Purchasing Analyst Relationship Specialty Start Date End Date Angel Cottrell DO [address] [place] [address] PCP - General Family Medicine 07/26/18 06/27/22 documented as of this encounter
--- OUTSIDE RECORDS SUMMARY | 2024-07-02 20:29 | XMS_ITS | Encounter Summary ---
Author Organization [employer] Care Team Providers Care Pompom Maker Name Role Phone Angel Cottrell DO Primary Care Provider [phone] Encounter Details Date Type Department Care Team (Latest Contact Info) Description 01/26/2020 Travel Social History Tobacco Use Types Packs/Day Years Used Date Smoking Tobacco: Former Cigarettes 2 35 0 09/27/1971 - 09/26/2006 Smokeless Tobacco: Never Comments:2006 Alcohol Use Standard Drinks/Week Comments No 0 (1 standard drink = 0.6 oz pur e alcohol) Comments No Sex and Gender Information Value Date Recorded Sex Assigned at Not on file Legal Sex Female 2:49 PM ACID TANK CLEANER Gender Identity Not on file Sexual Orientation [...] on filedocumented in this encounter Care Teams Pompom Maker Relationship Specialty Start Date End Date Angel Cottrell DO [address] [place] [address] PCP - General Family Medicine 07/26/18 06/27/22 documented as of this encounter
--- OUTSIDE RECORDS SUMMARY | 2024-07-02 20:29 | XMS_ITS | Encounter Summary ---
Author Organization [facility] Address [address] [facility] [place] [address] Phone Care Team Providers Care Tobacco Acreage Measurer Name Role Phone Angel Cottrell DO Primary Care Provider [phone] Reason for Referral * Radiology Services (Routine) - Closed Specialty Diagnoses / Procedures Referred By Contac t Referred To Contact Radiology Diagnoses Type 2 diabetes mellitus with other specified complication, unspecified whether ferry terminal agent insulin use (HCC) Dizziness and giddiness Procedures US BILATERAL CAROTID DUPLEX Angel Cottrell DO [address] [place] [address] Phone: tel: fax: Referral ID Status Reason Start Date Expiration Date Visits Re quested Visits Authorized [id number] Closed 01/17/2020 1 1 Encounter Details Date Type Department Care Team (Latest Contact Info) Description 01/17/2020 Transcribe Orders [facility] Scheduling [address] [place] [address] Angel Cottrell DO [address] [place] [address] Type 2 diabetes mellitus with other specified complication, unspecified whether longterm insulin use (HCC) (Primary Dx); Dizziness and giddiness Social History Tobacco Use Types Packs/Day Years Used Date Smoking Tobacco: Former Cigarettes 2 35 0 09/27/1971 - 09/26/2006 Smokeless Tobacco: Never Comments:2006 Alcohol Use Standard Drinks/Week Comments No 0 (1 standard drink = 0.6 oz pur e alcohol) Comments No Sex and Gender Information Value Date Recorded Sex Assigned at Not on file 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 Gender Identity Not on file Sexual Orientation Not on file documented as of this encounter Plan of Treatment Scheduled Orders Name Type Priority Associated Diagnoses Orde r Schedule US BILATERAL CAROTID DUPLEX Imaging Routine Type 2 diabetes mellitus with other specified complication, unspecified whether ferry terminal agent insulin use (HCC) Dizziness and giddiness Expected: 01/17/2020, Expires: 01/16/2021 documented as of this encounter Visit Diagnoses Diagnosis Type 2 diabetes mellitus with other specified complication, unspecified whether ferry terminal agent insulin use (HCC)- Primary Dizziness and giddiness documented in this encounter Care Teams Tobacco Acreage Measurer Relationship Specialty Start Date End Date Angel Cottrell DO [address] [place] [address] PCP - General Family Medicine 07/26/18 06/27/22 documented as of this encounter
--- OUTSIDE RECORDS SUMMARY | 2024-07-02 20:29 | XMS_ITS | Encounter Summary ---
Author Organization [employer] Care Team Providers Care Functional Analyst Name Role Phone Wiley Causey MD Primary Care Provider [phone] Encounter Details Date Type Department Care Team (Latest Contact Info) Description 07/07/2022 Travel Social History Tobacco Use Types Packs/Day Years Used Date Smoking Tobacco: Former Cigarettes 2 35 0 09/27/1971 - 09/26/2006 Smokeless Tobacco: Never Comments:2006 Alcohol Use Standard Drinks/Week Comments No 0 (1 standard drink = 0.6 oz pur e alcohol) Comments No Sex and Gender Information Value Date Recorded Sex Assigned at Not on file Legal Sex Female 2:49 PM 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 No / Unsure 07/07/2022 4:56 PM OCCUPATIONAL MEDICINE SPECIALIST documented as of this encounter Plan of Treatment Not on file documented as of this encounter Visit Diagnoses Not on filedocumented in this encounter Care Teams Functional Analyst Relationship Specialty Start Date End Date Wiley Causey MD PCP - General Family Medicine 06/28/22 documented as of this encounter
--- OUTSIDE RECORDS SUMMARY | 2024-07-02 20:29 | XMS_ITS | Encounter Summary ---
Author Organization [facility] Address [address] [facility] [place] [address] Phone Care Team Providers Care Nanny Babysitter Name Role Phone Angel Cottrell DO Primary Care Provider [phone] Reason for Referral * Radiology Services (Routine) - Closed Specialty Diagnoses / Procedures Referred By Contac t Referred To Contact Radiology Diagnoses Dizziness and giddiness Diabetes mellitus without complication (HCC) Procedures US BILATERAL CAROTID DUPLEX Angel Cottrell DO [address] [place] [address] Phone: tel: fax: Referral ID Status Reason Start Date Expiration Date Visits Re quested Visits Authorized [id number] Closed 01/17/2020 1 1 Encounter Details Date Type Department Care Team (Latest Contact Info) Description 01/17/2020 Community Orders [facility] [place] [address] [place] [address] Angel Cottrell DO [address] [place] [address] Dizziness and giddiness (Primary Dx); Diabetes mellitus without complication (HCC) Social History Tobacco Use Types Packs/Day Years Used Date Smoking Tobacco: Former Cigarettes 2 35 0 09/27/1971 - 09/26/2006 Smokeless Tobacco: Never Comments:2007 Alcohol Use Standard Drinks/Week Comments No 0 (1 standard drink = 0.6 oz pur e alcohol) Comments No Sex and Gender Information Value Date Recorded Sex Assigned at Not on file Legal Sex Female 2:49 PM GUM DIPPER Gender Identity Not on file Sexual Orientation Not on file documented as of this encounter Plan of Treatment Not on file documented as of this encounter Results * US BILATERAL CAROTID [...] AM T: ??01/27/2020 6:49 AM Report ID: [id number] Reading Location: ??[id number] Procedure Note Leo Boone Jr., MD - [...] Leo Boone M.D. CH: [place] Report ID: [id number] Reading Location: [place] [address] IMPRESSION: 1. Velocities correspond to a less [...] US. RSNA 2002 us Angel Cottrell DO IMG US ORDERABLES Final Re sult documented in this encounter Visit Diagnoses Diagnosis Dizziness and giddiness- Primary Diabetes mellitus without complication (HCC) Type II or unspecified type diabetes mellitus without mention of complication, not stated as uncontrolled Dizziness and giddiness Diabetes mellitus without complication (HCC) Type II or unspecified type diabetes mellitus without mention of complication, not stated as uncontrolled documented in this encounter Care Teams Nanny Babysitter Relationship Specialty Start Date End Date Angel Cottrell DO [address] [place] [address] PCP - General Family Medicine 07/26/18 06/27/22 documented as of this encounter
--- OUTSIDE RECORDS SUMMARY | 2024-07-02 20:29 | XMS_ITS | Encounter Summary ---
Author Organization [facility] Address [address] [facility] [place] [address] Phone Care Team Providers Care Retail Advertising Executive Name Role Phone Wiley Causey MD Primary Care Provider [phone] Reason for Referral * Radiology Services (Routine) - Closed Specialty Diagnoses / Procedures Referred By Contac t Referred To Contact Radiology Diagnoses Cervicalgia Procedures MRI C-SPINE W/O CONTRAST Provider, Not On File [place] Referral ID Status Reason Start Date Expiration Date Visits Re quested Visits Authorized Closed 06/24/2022 1 1 FORWARDING SYSTEM MARKUP CLERK Reason for Visit * Radiology Services (Routine) - Closed Specialty Diagnoses / Procedures Referred By Contac t Referred To Contact Radiology Diagnoses Cervicalgia Procedures MRI C-SPINE W/O CONTRAST Provider, Not On File [place] Referral ID Status Reason Start Date Expiration Date Visits Re quested Visits Authorized Closed 06/24/2022 1 1 Encounter Details Date Type Department Care Team (Latest Contact Info) Description 07/07/2022 5:05 PM MAIL FORWARDING SYSTEM MARKUP CLERK - 07/07/2022 11:59 PM MAIL FORWARDING SYSTEM MARKUP CLERK Hospital [facility]counter [facility] MRI [address] [place] [id number] Provider, Not On File [place] Discharge Disposition: Discharged to home or Selfcare [...] on file Legal Sex Female 2:49 PM MAIL FORWARDING SYSTEM MARKUP CLERK Gender Identity Not on file Sexual Orientation Not on file COVID-19 Exposure Response Date Recorded In the last 10 days, have yo u been in contact with someone who was confirmed or suspected to have Coronavirus/COVID-19? No / Unsure 07/07/2022 4:56 PM MAIL FORWARDING SYSTEM MARKUP CLERK documented as of this encounter Medications at [...] Procedure Name Priority Date/Time Associated Diagnosis Comments MRI C-SPINE W/O CONTRAST Routine 07/07/2022 5:52 PM MAIL FORWARDING SYSTEM MARKUP CLERK Cervicalgia documented in this encounter Results * MRI C-SPINE W/O CONTRAST (07/07/2022 5:52 PM MAIL FORWARDING SYSTEM MARKUP CLERK) Anatomical Region Laterality Modality Spine, C-spine N/A Magnetic Resonan ce 07/08/2022 8:30 AM MAIL FORWARDING SYSTEM MARKUP CLERK Impressions 07/08/2022 8:33 AM MAIL FORWARDING SYSTEM MARKUP CLERK IMPRESSION: ?? Constellation of spondylolisthesis, with straightening of the cervical lordosis, spondylosis, and degenerative disc disease of the cervical spine as detailed level by level above. Narrative 07/08/2022 8:33 AM MAIL FORWARDING SYSTEM MARKUP CLERK EXAM DESCRIPTION: ?? MRI C-SPINE W/O CONTRAST [...] AM T: ??07/08/2022 8:30 AM Report ID: [id number] Reading Location: ??[id number] Procedure Note Darnell Yao MD - 07/08/2022 [...] Darnell Yao M.D. SANDRO: SANDRO Report ID: [id number] Reading Location: [place] [address] IMPRESSION: Constellation of spondylolisthesis, with straightening of the cervical lordosis, spondylosis, and degenerative disc disease of the cervical spine as detailed level by level above. us Not On File Provider IMG MR ORDERABLES Final Res ult documented in this encounter Visit Diagnoses Diagnosis Cervicalgia documented in this encounter Care Teams Retail Advertising Executive Relationship Specialty Start Date End Date Wiley Causey MD PCP - General Family Medicine 06/28/22 documented as of this encounter
--- OUTSIDE RECORDS SUMMARY | 2024-07-02 20:30 | XMS_ITS | Encounter Summary ---
Author Organization [facility] Address [address] [place] [address] Care Team Providers Care Surgical Elastic Knitter Name Role Phone Angel Cottrell DO Primary Care Provider [phone] Reason for Visit * Reason Comments New Patient DM * Consultation (Routine) - Closed Specialty Diagnoses / Procedures Referred By Contac t Referred To Contact Endocrinology Diagnoses Diabetes mellitus without complication (CMS/HCC) ([facility]) Angel Cottrell DO Phone: tel: fax: Inderjit Lee MD [address] [place] [address] [address] [place] [address] Phone: tel: fax: Referral ID Status Reason Start Date Expiration Date V isits Requested Visits Authorized [id number] Closed Specialty Services Required 03/18/2020 04/17/2021 5 5 Encounter Details Date Type Department Care Team (Late st Contact Info) Description 03/20/2020 1:00 PM CDT Office Visit [facility] [address] [place] [address] Inderjit Lee MD [address] [place] [address] [address] [place] [address] Type 2 diabetes mellitus with hyperglycemia, without long-term current use of insulin (CMS/HCC); Essential hypertension Social History Tobacco Use Types Packs/Day Years Used Date Smoking Tobacco: Former Smokeless Tobacco: Never Comments Unknown Sex and Gender Information Value Date Recorded Sex Assigned at Not on file Legal Sex Female 8:44 PM FRONT OFFICE ASSOCIATE Gender Identity Not on file Sexual Orientation Not on file documented as of this encounter Last Filed Vital Signs Vital Sign Reading Time Taken Comments Blood Pressure 114/72 03/20/2020 1:09 PM CDT Pulse - - Temperature - - Respiratory Rate - - Oxygen Saturation - - Inhaled Oxygen Concentration - - Weight 99.4 kg (219 lb 3.2 oz) 03/20/2020 1:09 P M CDT Height 157.5 cm (5' 2 ) 03/20/2020 1:09 PM CDT Body Mass Index 40.09 03/20/2020 1:09 PM CDT documented in this encounter Ordered Prescriptions Prescription Sig Dispense Quantity Refills Last Filled Start Date End Date SITagliptin (JANUVIA) 50 mg tabletIndications:t ype 2 diabetes mellitus Take 1 tablet (50 mg total) by mouth daily 30 tablet 5 03/20/2020 documented in this encounter Progress Notes * Inderjit Lee MD - 03/20/2020 1:00 PM CDT Subjective/Objective Patient ID: Edith Mayo is a 69 y.o. female. Chief Complaint New Patient (DM) 78 years old female, referred for evaluation and treatment of diabetes Patient has been diabetic for 8-10 years Patient is on metformin 1000 mg bid, Glimepiride 1 mg /day Patient checks sugars once /day- am sugars -. She denied low sugars Diet : patient tries to avoid sugars- reports stable weight. Exercise : limited. Diabetes This is a chronic problem. The problem has been unchanged. Associated symptoms include arthralgias.Pertinent negatives include no abdominal pain, coughing, fatigue, headaches, nausea, numbness, rash, urinary symptoms, visual change or vomiting. Hypertension This is a chronic problem. The problem has been unchanged. Associated symptoms include arthralgias.Pertinent negatives include no abdominal pain, coughing, fatigue, headaches, nausea, numbness, rash, urinary symptoms, visual change or vomiting. Review of Systems Constitutional: Negative for fatigue and unexpected weight change. HENT: Negative for trouble swallowing and voice change. Eyes: Negative for visual disturbance. Respiratory: Negative for cough and wheezing. Cardiovascular: Positive for leg swelling. Negative for palpitations. Gastrointestinal: Negative for abdominal pain, constipation, diarrhea, nausea and vomiting. Endocrine: Negative for polydipsia and polyuria. No hypoglycemia Genitourinary: Negative for frequency. Musculoskeletal: Positive for arthralgias. Negative for back pain. Skin: Negative for rash and wound. Neurological: Positive for light-headedness. Negative for syncope, numbness and headaches. Psychiatric/Behavioral: The patient is nervous/anxious. Physical Exam Vitals signs reviewed. Constitutional: General: She is not in acute distress. Appearance: Normal appearance. She is well-developed. Eyes: Conjunctiva/sclera: Conjunctivae normal. Neck: Musculoskeletal: Normal range of motion and neck supple. Thyroid: No thyroid mass, thyromegaly or thyroid tenderness. Cardiovascular: Rate and Rhythm: Normal rate and regular rhythm. Pulses: Dorsalis pedis pulses are 2+ on the right side and 2+ on the left side. Posterior tibial pulses are 2+ on the right side and 2+ on the left side. Heart sounds: Normal heart sounds. Pulmonary: Breath sounds: Normal breath sounds. Abdominal: General: Bowel sounds are normal. Palpations: Abdomen is soft. Musculoskeletal: Right lower le+ Pitting Edema present. Left lower le+ Pitting Edema present. Right foot: No deformity. Left foot: No deformity. Feet: Right Foot: Monofilament exam: normal. Skin Integrity: Negative for ulcer. Left Foot: Monofilament exam: normal. Skin Integrity: Negative for ulcer. Skin: General: Skin is warm. Findings: No abrasion or bruising. Neurological: Mental Status: She is alert. Psychiatric: Attention and Perception: Attention normal. Mood and Affect: Mood normal. Speech: Speech normal. Assessment/Plan Diagnoses and all orders for this visit: Type 2 diabetes mellitus with hyperglycemia, without long-term current use of insulin ([facility]) (E11.65) Assessment & Plan: Diagnosed in 2009 Control : has been in reasonable control A1c 6.7% on 01/17/20 Kidney: CKD with GFR of 30 on 03/10/20- seeing Nephrology Neuropathy : none Plan: Patient asked to work on weight loss with diet and exercise - suggested low carb diet. Discontinue Metformin due to deterioration in kidney functions. Continue Glimepiride once /day Start januvia 50 mg /day Monitor sugars Once /day and target am sugars 100-150 Hypoglycemia symptoms and treatment reviewed with patient. Call if having low sugars. Ophthalmology exam on regular basis. Orders: - Ambulatory referral to Endocrinology - POCT glucose Essential hypertension (I10) Assessment & Plan: Complicated with CKD Creatinine 1.7- GFR 30 in February/2020 - continue medication and follow up with Animal Husbandry Technician. Other orders - SITagliptin (JANUVIA) 50 mg tablet; Take 1 tablet (50 mg total) by mouth daily documented in this encounter Miscellaneous Notes * Assessment & Plan Note - Inderjit Lee MD - 03/20/2020 1:47 PM CDT Associated Problem(s): Essential hypertension Complicated with CKD Creatinine 1.7- GFR 30 in February/2020 - continue medication and follow up with Animal Husbandry Technician. * Assessment & Plan Note - Inderjit Lee MD - 03/20/2020 1:47 PM CDT Associated Problem(s): Type 2 diabetes mellitus with hyperglycemia, without long-term current use of insulin ([facility]) Diagnosed in 2009 Control : has been in reasonable control A1c 6.7% on 01/17/20 Kidney: CKD with GFR of 30 on 03/10/20- seeing Nephrology Neuropathy : none Plan: Patient asked to work on weight loss with diet and exercise - suggested low carb diet. Discontinue Metformin due to deterioration in kidney functions. Continue Glimepiride once /day Start januvia 50 mg /day Monitor sugars Once /day and target am sugars 100-150 Hypoglycemia symptoms and treatment reviewed with patient. Call if having low sugars. Ophthalmology exam on regular basis. documented in this encounter Plan of Treatment Not on file documented as of this encounter Procedures Procedure Name Priority Date/Time Associated Diagnosis Comments POCT GLUCOSE Routine 03/20/2020 1:27 PM CDT Type 2 diabetes mellitus with hyperglycemia, without long-term current use of insulin ([facility]) documented in this encounter Results * POCT glucose (03/20/2020 1:27 PM CDT) Glucose Blood, POC 136 mg/dL Blood specimen (specimen) 03/20/2020 1:27 PM CDT Inderjit Lee MD POINT OF CARE TEST ORDERABLES Final Result documented in this encounter Visit Diagnoses Diagnosis Type 2 diabetes mellitus with hyperglycemia, without long-term current use of insulin (HCC) Essential hypertension Unspecified essential hypertension documented in this encounter Historical Medications * This list may reflect changes made after this encounter. magnesium oxide 400 mg magnesium capsule Take 400 mg by mouth 2 (two) times a day Accu-Chek Softclix Lancets lancets USE TO TEST ONCE DAILY 03/09/2020 Accu-Chek Iwona Plus test strp strip TEST BS ONCE D 03/09/2020 added in this encounter Orders Outpatient Referral Count Last Ordered Date Fir st Ordered Date AMB REFERRAL TO ENDOCRINOLOGY 1 03/20/2020 documented in this encounter Care Teams Surgical Elastic Knitter Relationship Specialty Start Date End Date Angel Cottrell DO PCP - General Family Medicine 03/11/20 documented as of this encounter
--- OUTSIDE RECORDS SUMMARY | 2024-07-02 20:30 | XMS_ITS | Encounter Summary ---
Author Organization [facility] Address [address] [place] [address] Care Team Providers Care Basket Hand Weaver Name Role Phone Angel Cottrell DO Primary Care Provider [phone] Reason for Visit * Reason Comments COVID-19 EVALUATION sx onset 10\1\21; so re throat, cough, diarrhea, headache, fever (highest was 103), was 100 this morning. 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 Gender Identity Not on file Sexual Orientation Not on file documented as of this encounter Last Filed Vital Signs Vital Sign Reading Time Taken Comments Blood Pressure 120/58 04/21/2021 1:02 PM CDT Pulse 105 04/21/2021 1:02 PM CDT Temperature 37.4 ??C (99.4 ??F) 04/21/2021 1:02 PM CD T Respiratory Rate 22 04/21/2021 1:02 PM CDT Oxygen Saturation 96% 04/21/2021 1:02 PM CDT Inhaled Oxygen Concentration - - Weight 92.5 kg (204 lb) 04/21/2021 1:02 PM CDT Height 157.5 cm (5' 2 ) 04/21/2021 1:02 PM CDT Body Mass Index 37.31 04/21/2021 1:02 PM CDT documented in this encounter Patient Instructions * Patient Instructions* Meche Mann NP - 04/21/2021 1:00 PM CDT Mucinex for chest congestion Sudafed for nasal/head congestion Zyrtec for nasal drainage Flonase nasal spray for sinus drainage Delsym/Robitussin for cough Tylenol/Motrin for fever Drink plenty of fluids to stay hydrated, gatorade/pedialyte Get plenty of rest Vitamin C, multivitamin If your symptoms worsen or you experience shortness of breath, return to clinic or go to ER Your COVID-19 test was positive. CDC recommends you self isolate until at least 10 days have passedsince symptom onset, your symptoms have improved, and you have been fever free without the use of fever reducing medications for at least 24 hours. Please notify all individuals you had close contact with up to 2 days prior to developing symptoms of your Covid infection. If you develop trouble breathing, persistent pain or pressure in your chest, new confusion, inability to wake or stay awake, bluish lips or face call 911 or go to the ER. documented in this encounter Progress Notes * Meche Mann NP - 04/21/2021 1:00 PM CDT Images from the original note were not included. Patient ID: Edith Mayo is a 71 y.o. female followed by Angel Cottrell DO Patient was wearing the following PPE: mask. Provider was wearing the following PPE: mask, gown, and gloves. Chief Complaint Patient presents with ??? COVID-19 EVALUATION sx onset 10\1\21; sore throat, cough, diarrhea, headache, fever (highest was 103), was 100 this morning. Not vaccinated Patient presents with a sore throat, cough, diarrhea, headache, fever, TMAX was 103, she was 101 this AM. She is not vaccinated. Review of Systems Constitutional: Positive for fatigue and fever. HENT: Positive for sore throat. Respiratory: Positive for cough. Negative for shortness of breath. Gastrointestinal: Positive for diarrhea. Neurological: Positive for headaches. Social History Tobacco Use Smoking Status Former Smoker Smokeless Tobacco Never Used Vitals: 04/21/21 1302 BP: 120/58 BP Location: Right arm Patient Position: Sitting Pulse: 105 Resp: 22 Temp: 37.4 ??C (99.4 ??F) TempSrc: Oral SpO2: 96% Weight: 92.5 kg (204 lb) Height: 157.5 cm (5' 2 ) Recent Results (from the past 24 hour(s)) COVID-19 POC Collection Time: 04/21/21 1:25 PM Result Value Ref Range COVID-19 Ag POC (BD Veritor) Positive (A) Presumptive Negative, Invalid POCT rapid strep A Collection Time: 04/21/21 1:25 PM Result Value Ref Range Rapid Strep A, POC Negative POCT influenza A/B Collection Time: 04/21/21 1:29 PM Result Value Ref Range Rapid Influenza A Ag Negative Negative, Invalid Rapid Influenza B Ag Negative Negative, Invalid Physical Exam Constitutional: Appearance: Normal appearance. She is obese. HENT: Right Ear: Tympanic membrane, ear canal and external ear normal. Left Ear: Tympanic membrane, ear canal and external ear normal. Nose: Congestion present. Eyes: Conjunctiva/sclera: Conjunctivae normal. Cardiovascular: Rate and Rhythm: Normal rate and regular rhythm. Heart sounds: Normal heart sounds. Pulmonary: Effort: Pulmonary effort is normal. Breath sounds: Normal breath sounds. Musculoskeletal: General: Normal range of motion. Cervical back: Normal range of motion and neck supple. Skin: General: Skin is warm and dry. Neurological: Mental Status: She is alert. Psychiatric: Mood and Affect: Mood normal. Behavior: Behavior normal. Assessment/Plan Discussed monoclonal antibodies with patient - ordered and she will go to [facility] Mucinex for chest congestion Sudafed for nasal/head congestion Zyrtec for nasal drainage Flonase nasal spray for sinus drainage Delsym/Robitussin for cough Tylenol/Motrin for fever Drink plenty of fluids to stay hydrated, gatorade/pedialyte Get plenty of rest Vitamin C, multivitamin If your symptoms worsen or you experience shortness of breath, return to clinic or go to ER Diagnoses and all orders for this visit: COVID-19 (Primary) - COVID-19 POC - POCT rapid strep A - POCT influenza A/B - Infusion Appointment Request 150 MIN; Future Cough - COVID-19 POC - POCT rapid strep A - POCT influenza A/B Lungs CTA, low suspicion for pneumonia at this time. Will recommend supportive care for symptoms with f/u precautions including signs/symptoms warranting ER evaluation. ??? Discussed home self-care, follow up needs, and signs and symptoms that warrant immediate medical attention/ER evaluation including worsening fever, increased shortness of breath, severe N/V/D, orany other worrisome symptoms ??? Reviewed isolation/quarantine protocols ??? Discussed symptomatic relief of symptoms ??? Advised to rest and increase oral fluid intake ??? Advised to stay out of work and work release given explaining when patient can return to work Orders Placed This Encounter Procedures ??? COVID-19 POC Order Specific Question: Is the Patient experiencing symptoms consistent with COVID? Answer: Yes Order Specific Question: Date of Symptom Onset Answer: 04/19/2021 Order Specific Question: Is the patient hospitalized? Answer: No Order Specific Question: Is the patient admitted to an ICU? Answer: No Order Specific Question: Does the patient currently work in a healthcare facility with direct patient contact? Answer: No Order Specific Question: Is the patient a resident of a congregate care or living setting? Answer: No Order Specific Question: Is the patient ? Answer: No ??? POCT rapid strep A ??? POCT influenza A/B The patient will be given the Fact Sheet for Patients, Parents and Caregivers?? when they arrive at the infusion center which goes over this information that they have been given verbally today. The following has been discussed with the patient: The U.S. Food and Drug Administration (FDA) has issued an Emergency Use Authorization (EUA) to permit the emergency use of an unapproved intravenous monoclonal antibody therapy for the treatment of mild to moderate coronavirus disease 2019 (COVID19) or for post-exposure prophylaxis of COVID-19 in patients who are at high risk for progression to severe COVID-19, including hospitalization or .This therapy is given through a vein (intravenous or IV) over 30 minutes with an additional 1 hour observation period. There is limited information known about the safety or effectiveness of using these monoclonal antibodies to treat people with COVID-19. One of the possible side effects of this therapy is an allergic reaction. Allergic reactions can happen during and after the infusion. Symptoms can include chills, nausea, headache, shortness of breath, low blood pressure, wheezing, swelling of the lips, face, or throat, rash including hives, itching, muscle aches, and dizziness. The patient will be observed closely for this and treated as needed. Serious and unexpected side effects may happen. This therapy is still being studied so it is possible that all of the risks are not known at this time. It is possible that the treatment could interfere with the body's own ability to fight off a future infection of SARS-CoV-2. Similarly, it may reduce the body's immune response to a vaccine for SARS-CoV-2. Specific studies have not been conducted to address these possible risks. The CDC recommends deferring COVID vaccination for at least 90 days after this therapy as otherwiseit may interfere with vaccine efficacy. The side effects of getting any medicine by vein may include brief pain, bleeding, bruising of the skin, soreness, swelling, and possible infection at the infusion site. It is the patient's choice to be treated or not to be treated with this therapy. Should they decidenot to receive this infusion or stop it at any time, it will not change the standard medical care. An alternative to receiving this therapy is to receive current standard treatment, which is supportive care. The website ynifi33tohzypsezubqoqgmerc.nih.gov has more information on the emergency use of other medicines that are not approved by FDA to treat people with COVID-19 and clinical trials the patient may be eligible for. The patient agrees, at this time, to proceed with scheduling the infusion treatment. documented in this encounter Plan of Treatment Not on file documented as of this encounter Procedures Procedure Name Priority Date/Time Associated Diagnosis Comments POCT INFLUENZA A/B Routine 04/21/2021 1: 29 PM CDT COVID-19 Cough COVID-19 POC Routine 04/21/2021 1:25 PM CDT COVID-19 Cough POCT RAPID STREP Routine 04/21/2021 1:25 PM CDT COVID-19 Cough documented in this encounter Results * POCT influenza A/B (04/21/2021 1:29 PM CDT) Rapid Influenza A Ag Negative Negative, Invalid Rapid Influenza B Ag Negative Negative, Invalid Nasopharyngeal 04/21/2021 1: 29 PM CDT Meche Mann DEPUTY BRAND INSPECTOR POINT OF CARE TEST ORDER YAJAIRA Final Result * POCT rapid strep A (04/21/2021 1:25 PM CDT) Rapid Strep A, POC Negative Swab 04/21/2021 1:25 PM CDT Meche Mann DEPUTY BRAND INSPECTOR POINT OF CARE TEST ORDER YAJAIRA Final Result * (ABNORMAL) COVID-19 POC (04/21/2021 1:25 PM CDT) COVID-19 Ag POC (BD Veritor) Positive( A) Presumptive Negative, Invalid [facility] Nasal 04/21/2021 1:25 PM CDT Meche Mann DEPUTY BRAND INSPECTOR POINT OF CARE TEST ORDER YAJAIRA Final Result [facility] [address] [place] [address] documented in this encounter Visit Diagnoses Diagnosis COVID-19- Primary Cough documented in this encounter Discontinued Medications Medication Sig Discontinue Reason Start Date End Da te predniSONE (DELTASONE) 5 mg tablet TAKE 1 TABLET BY MOUTH TWICE DAILY FOR 1 MONTH AND THEN REDUCE TO ONCE DAILY 03/27/2021 04/21/2021 documented as of this encounter Historical Medications * This list may reflect changes made after this encounter. predniSONE (DELTASONE) 5 mg tablet TAKE 1 TABLET BY MOUTH TWICE DAILY FOR 1 MONTH AND THEN REDUCE TO ONCE DAILY 03/03/2021 ergocalciferol (VITAMIN D) 50,000 unit capsule Take 50,000 Units by mouth once a week 03/24/2021 predniSONE (DELTASONE) 5 mg tablet TAKE 1 TABLET BY MOUTH TWICE DAILY FOR 1 MONTH AND THEN REDUCE TO ONCE DAILY 03/27/2021 04/21/2021 added in this encounter Orders Appointment Requests Count Last Ordered Date Fi rst Ordered Date INFUSION APPT REQUEST 150 MIN 1 04/22/2021 documented in this encounter Additional Health Concerns Infection Onset Date Last Indicated Resolved Time COVID: Suspected 04/21/2021 04/21/2021 04/21/2021 1:25 PM CDT COVID19 04/21/2021 04/21/2021 05/05/2021 3:05 AM CDT documented as of this encounter Care Teams Basket Hand Weaver Relationship Specialty Start Date End Date Angel Cottrell DO PCP - General Family Medicine 03/11/20 documented as of this encounter
--- OUTSIDE RECORDS SUMMARY | 2024-07-02 20:30 | XMS_ITS | Encounter Summary ---
Author Organization [facility] Address [address] [place] [address] Care Team Providers Care Senior Solutions Consultant Name Role Phone Angel Cottrell DO Primary Care Provider [phone] Reason for Visit * Reason Onset Date Comments Covid-19 Home Monitoring 04/23/2021 daily c all Encounter Details Date Type Department Care Team ([facility] Contact Info) Description 04/23/2021 Telephone [facility] Accountable Care Organization [address] [place] [address] Nelson Worthington MA [address] [place] [address] Covid-19 Home Monitoring (daily call ) Social History Tobacco Use Types Packs/Day Years Used Date Smoking Tobacco: Former Smokeless Tobacco: Never Comments Unknown Sex and Gender Information Value Date Recorded Sex Assigned at Not on file 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7 ??F) Symptom Monitoring Are you feeling short of breath today?: No Are you having a cough today?: Yes Cough Details:: Better Are you experiencing weakness today?: Yes Weakness Details:: Better How is your appetite compared to yesterday?: Unchanged Are you vomiting?: No Are you experiencing diarrhea? : No This patient has enrolled in the PHONE ONLY version of COVID-19 Home Monitoring Program. COVID-19 Symptom questionnaire was completed today. Symptoms were addressed to be Mild. Escalation was not needed. Next Program Call Due: 04/24 documented in this encounter Plan of Treatment Not on file documented as of this encounter Visit Diagnoses Not on filedocumented in this encounter Additional Health Concerns Infection Onset Date Last Indicated Resolved Time COVID19 04/21/2021 04/21/2021 05/05/2021 3:05 AM CDT documented as of this encounter Care Teams Senior Solutions Consultant Relationship Specialty Start Date End Date Angel Cottrell DO PCP - General Family Medicine 03/11/20 documented as of this encounter
--- OUTSIDE RECORDS SUMMARY | 2024-07-02 20:30 | XMS_ITS | Encounter Summary ---
Author Organization [facility] Healthcare Address [address] [place] [address] Care Team Providers Care Plane Tableman Name Role Phone Sheldon Santos MD Primary Care Provide r Encounter Details Date Type Department Care Team (Late st Contact Info) Description 06/13/2019 Orders Only Neurology Patience Garcia MD [address] [place] [address] New persistent daily headache (Primary Dx) Social History Tobacco Use Types Packs/Day Years Used Date Smoking Tobacco: Never Assessed Comments Unknown Sex and Gender Information Value Date Recorded Sex Assigned at Not on file Legal Sex Female 8:44 PM BEE PRODUCER Gender Identity Not on file Sexual Orientation Not on file documented as of this encounter Plan of Treatment Not on file documented as of this encounter Visit Diagnoses Diagnosis New persistent daily headache- Primary New daily persistent headache documented in this encounter Care Teams Plane Tableman Relationship Specialty Start Date End Date Sheldon Santos MD PCP - General 03/29/17 03/10/20 documented as of this encounter
--- OUTSIDE RECORDS SUMMARY | 2024-07-02 20:30 | XMS_ITS | Encounter Summary ---
Author Organization [facility] Address [address] [place] [address] Care Team Providers Care Benefits Counselor Name Role Phone Angel Cottrell DO Primary Care Provider [phone] Reason for Visit * Reason Onset Date Comments Covid-19 Home Monitoring 04/25/2021 Encounter Details Date Type Department Care Team (Late st Contact Info) Description 04/25/2021 Telephone [facility] Accountable Care Organization [address] [place] [address] Georgina Hoffmann CMA [address] [place] [address] [address] [place] [address] Covid-19 Home Monitoring Social History Tobacco Use Types Packs/Day Years Used Date Smoking Tobacco: Former Smokeless Tobacco: Never Comments Unknown Sex and Gender Information Value Date Recorded Sex Assigned at Not on file Legal Sex Female 8:44 PM INSULATOR HELPER Gender Identity Not on file Sexual Orientation Not on file documented as of this encounter Miscellaneous Notes * Telephone Encounter - Georgina Hoffmann CMA - 04/25/2021 8:46 AM CDT COVID-19 Home Monitoring Flowsheet Answers: Temp/Pulse Ox Temp: (no fever) Symptom Monitoring Are you feeling short of breath today?: No Are you having a cough today?: Yes Cough Details:: Better Are you experiencing weakness today?: No How is your appetite compared to yesterday?: Unchanged Are you vomiting?: No Are you experiencing diarrhea? : No This patient has enrolled in the PHONE ONLY version of COVID-19 Home Monitoring Program. COVID-19 Symptom questionnaire was completed today. Symptoms were addressed to be Mild. Escalation was not needed. Next Program Call Due: 04/26/21 documented in this encounter Plan of Treatment Not on file documented as of this encounter Visit Diagnoses Not on filedocumented in this encounter Additional Health Concerns Infection Onset Date Last Indicated Resolved Time COVID19 04/21/2021 04/21/2021 05/05/2021 3:05 AM CDT documented as of this encounter Care Teams Benefits Counselor Relationship Specialty Start Date End Date Angel Cottrell DO PCP - General Family Medicine 03/11/20 documented as of this encounter
--- OUTSIDE RECORDS SUMMARY | 2024-07-02 20:30 | XMS_ITS | Referral Summary ---
Author Organization [facility] Address [address] [place] [address] Care Team Providers Care Squaring Machine Operator Name Role Phone Angel Cottrell DO Primary Care Provider [phone] Allergies Active Allergy Reactions Criticality Noted Date Comments Budesonide-Formotero l Muscle pain Medium 11/26/2020 Other Other (See comments),Rash Medium 09/15/2018 Muscle spasms 2 Cholesterol medications caused a rash. ??Patient does not know the name of either. Tramadol Hives Medium 09/15/2018 Medications metFORMIN (GLUCOPHAGE) 1,000 mg tablet Take 1,000 mg by mouth daily Active glimepiride (AMARYL) 1 mg tablet TK 1 T PO QD 1 9 Active amLODIPine (NORVASC) 5 mg tablet Take 5 mg by mouth daily 9 Active lisinopril (PRINIVIL,ZESTR IL) 20 mg tablet Take 20 mg by mouth daily Active betamethasone valerate (VALISONE) 0.1 % cream Apply topically 2 times daily Active omeprazole (PriLOSEC) 20 mg capsule TK 1 C PO BID 30 MIN TO 1 HOUR AC 2 9 Active gabapentin (NEURONTIN) 100 mg capsule Take 1 capsule (100 mg total) by mouth 3 (three) times a day 60 capsule 9 Active Additional Information Patient not taking.Reported on 03/20/2020 Accu-Chek Iwona Plus test strp strip TEST BS ONCE D 0 Active Accu-Chek Softclix Lancets lancets USE TO TEST ONCE DAILY 0 Active magnesium oxide 400 mg magnesium capsule Take 400 mg by mouth 2 (two) times a day Active SITagliptin (JANUVIA) 50 mg tabletIndicatio ns:type 2 diabetes mellitus Take 1 tablet (50 mg total) by mouth daily 30 tablet 5 0 Active Additional Information Patient not taking.Reported on 11/26/2020 Trulicity 1.5 mg/0.5 mL pen injector ADMINISTER 1.5 MG UNDER THE SKIN 1 TIME A WEEK 1 Active cyanocobalamin (Vitamin B-12) 100 mcg tabletIndicatio ns:Prevention of Vitamin B12 Deficiency Take 100 mcg by mouth daily Monthly infusion Active vit D3-vit I-rajlkavlp-rzb s [id number] gzkd-bde-dd-mg tablet Take by mouth Active ergocalciferol (VITAMIN D) 50,000 unit capsule Take 50,000 Units by mouth once a week 1 Active predniSONE (DELTASONE) 5 mg tablet TAKE 1 TABLET BY MOUTH TWICE DAILY FOR 1 MONTH AND THEN REDUCE TO ONCE DAILY 1 Active Active Problems Problem Noted Date Diagnosed Date COVID-19 04/21/2021 Essential hypertension 03/20/2020 Assessment & Plan (03/20/2020 1:48 PM CDT): Complicated with CKD Creatinine 1.7- GFR 30 in February/2020 - continue medication and follow up with [facility]. MADDY (obstructive sleep apnea) 03/20/2020 Type 2 diabetes mellitus wit h hyperglycemia, without long-term current use of insulin 03/20/2020 Assessment & Plan (03/20/2020 1:47 PM CDT): Diagnosed in 2009 Control : has been [...] low sugars. Ophthalmology exam on regular basis. 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 Gender Identity Not on file Sexual Orientation Not on file Last Filed Vital Signs Vital Sign Reading Time Taken Comments Blood Pressure 130/71 04/22/2021 4:15 PM CDT Pulse 80 04/22/2021 4:15 PM CDT Temperature 37.2 ??C (98.9 ??F) 04/24/2021 11:09 AM C DT Respiratory Rate 18 04/22/2021 4:15 PM CDT Oxygen Saturation 98% 04/22/2021 4:15 PM CDT Inhaled Oxygen Concentration - - Weight 93.4 kg (206 lb) 04/22/2021 2:29 PM CDT Height 157.5 cm (5' 2 ) 04/22/2021 2:29 PM CDT Body Mass Index 37.68 04/22/2021 2:29 PM CDT Plan of Treatment Not on file Insurance [employer] MEDICARE PPO [place] [id number] [employer] MEDIC[employer] PPO IDPA Care Teams Squaring Machine Operator Relationship Specialty Start Date End Date Angel Cottrell DO PCP - General Family Medicine 03/11/20
--- OUTSIDE RECORDS SUMMARY | 2024-07-02 20:30 | XMS_ITS | Encounter Summary ---
Author Organization [facility] Healthcare Address [address] [place] [address] Care Team Providers Care Cloth Hand Name Role Phone Angel Cottrell DO Primary Care Provider [phone] Reason for Visit * Reason Comments OP Infusion * Episode Based Medications (Routine) - Closed Specialty Diagnoses / Procedures Referred By Contac t Referred To Contact Diagnoses COVID-19 Meche Mann NP [address] [facility] [address] [place] [address] Phone: tel: fax: [facility] [address] [place] [address] Referral ID Status Reason Start Date Expiration Date Visits Re quested Visits Authorized [id number] Closed 04/21/2021 05/21/2022 1 1 Encounter Details Date Type Department Care Team (Late st Contact Info) Description 04/22/2021 1:45 PM CDT - 04/22/2021 11:59 PM CDT Hospital Encounter [facility] [address] [facility] [address] [place] [id number] Wiley Causey MD [address] [place] [address] COVID-19 (Primary Dx) Discharge Disposition: Discharge to home or self care Social History Tobacco Use Types Packs/Day Years Used Date Smoking Tobacco: Former Smokeless Tobacco: Never Comments Unknown Sex and Gender Information Value Date Recorded Sex Assigned at Not on file 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 Gender Identity Not on file Sexual Orientation Not on file documented as of this encounter Last Filed Vital Signs Vital Sign Reading Time Taken Comments Blood Pressure 130/71 04/22/2021 4:15 PM CDT Pulse 80 04/22/2021 4:15 PM CDT Temperature 36.3 ??C (97.3 ??F) 04/22/2021 4:15 PM CD T Respiratory Rate 18 04/22/2021 4:15 PM CDT Oxygen Saturation 98% 04/22/2021 4:15 PM CDT Inhaled Oxygen Concentration - - Weight 93.4 kg (206 lb) 04/22/2021 2:29 PM CDT Height 157.5 cm (5' 2 ) 04/22/2021 2:29 PM CDT Body Mass Index 37.68 04/22/2021 2:29 PM CDT documented in this encounter Discharge Instructions * Patient Instructions* Adeline Oreilly RN - 04/22/2021 1:45 PM CDT COVID-19 (Coronavirus Disease 2019) What You Need to Know and Do The infectious disease COVID-19, caused by the novel coronavirus, continues to spread in our community. Care at home can help stop the spread of COVID-19 and help protect people who are at risk for getting seriously ill from COVID-19. Please read this handout to learn more about COVID-19, how to treat symptoms and how to prevent further spread. Q: What are the signs and symptoms of COVID-19? Signs and symptoms usually start about 5 days afterinfection, but it can take 2 to 14 days. You may have any of the following: ?? Fever, a cough, and shortness of breath (these 3 are the most common) ?? Sore throat ?? Sudden pain in your chest when you breathe that is worse when you cough or breathe deeply ?? Feeling more tired than usual ?? Body aches or a headache ?? Diarrhea Q: How is COVID-19 spread? COVID-19 spreads between people who are in close contact (within about 6feet) through respiratory droplets produced when an infected person coughs or sneezes. An infected person may be able to leave the virus on objects and surfaces. Infection happens if another person touches the object or surface and then touches his or her eyes or mouth. It is not yet known exactly how long the virus can stay on an object or surfaces, which is why it is important to clean all surfaces that are used regularly. Ikzoac-ys-jntfvk contact, such as shaking hands or hugging someone, can spread the virus. Q: Who is most at risk for serious problems from COVID-19? People 65 years or older, or who have lung disease, heart disease, diabetes, or a weak immune system are at greatest risk of complications from COVID-19. Q: How is COVID-19 treated? Treatment depends on how severe symptoms become. Most people who get sick with COVID-19 will have only mild illness and should recover at home. ?? For mild symptoms, supportive care such as drinking more liquids, using otsc-qtn-cfdtrjm pain relievers, decongestants, and humidifiers/vaporizers may be helpful. ?? For more severe symptoms, such as chest pain or sustained shortness of breath, treatment at a hospital may be indicated. Q: Why wasn???t I tested? Due to a limited number of tests available, confirmatory testing for COVID-19 may be reserved for those who require hospitalization or for those with the highest risk for complications from the virus. Not everyone who has symptoms of COVID-19 will require testing to confirm the infection, however we recommend anyone who may suspect they have COVID-19 take appropriate precautions for themselves and those around them. Q: What is a home quarantine? A home quarantine is when your health care provider or public health official tells you and your family to stay home and limit contact with people outside of your household to prevent further spread of the infection after an exposure. Q: Why am I/my family being placed on home quarantine? You or your family are being placed on home quarantine because you may have been exposed to, or had symptoms consistent with COVID-19. They should not leave home except for getting medical care. This includes staying home from work, school, avoiding any public areas, and not using public transportation. Q: How long will I have to be on home quarantine? Release from home quarantine is managed by your local department of health, primary care provider or specialist, if you don???t have a PCP. If you have not heard from your local health department, call your physician to discuss how long you need to remain on home quarantine. In general, they will recommend that you quarantine at home for fourteen days after your last contact with a COVID-19 case. If you develop any symptoms during that time, contact your provider, alert them to your exposure and symptoms, and they will arrange COVID-19 testingfor you. Q. What is home isolation? Home isolation is when your healthcare provider or public health official tells you to stay home because you have symptoms consistent with or have tested positive for COVID-19. Q: How long will I have to be on home isolation? Release from home isolation is managed by your local department of health, primary care provider or specialist, if you don???t have a PCP. If you havenot heard from your local health department, call your physician to discuss how long you need to remain on home quarantine. In general, they will use the criteria noted below: ?? You have been fever-free for at least 24 hours (without the use of fever reducing medicine such as Tylenol) AND ?? Other symptoms have improved (for example, when cough or shortness of breath have improved) AND ?? At least 10 days have passed since symptoms first appeared Q: What do I need to do while on home isolation or quarantine? You should: ?? Stay home. You should not leave home except for getting medical care. ?? Do not go to work, school, or public areas (including stores, restaurants, public transportation). ?? Cover your mouth and nose with a tissue when coughing or sneezing, then dispose of the tissue. Amask should be worn when others are near you to prevent droplets from spreading the virus when you talk, sneeze or cough. ?? Have only people in the home who are essential for providing care. No one else may visit. ?? Stay in a different room from other members of your family and pets as much as possible if you are the only one sick. Use separate bathrooms, if possible. ?? Clean your hands well with soap and water or hand construction job titles often, especially after you sneeze or blow your nose, and before touching your face or eating. ?? Avoid sharing household items such as dishes, cups, bedding or other items between people in your home, especially between those who are sick and those who are not. Family members in the home with someone on home isolation for COVID-19 infection should: ?? Stay home. They should not leave home except for getting medical care. This includes staying home from work, school, avoiding any public areas, and not using public transportation. ?? If facemasks are available, caregivers should also wear a facemask when they are near the symptomatic person. ?? Clean their hands well with soap and water for at least 20 seconds or hand construction job titles (60-95% alcohol) often, especially after they sneeze or blow their nose and before touching their face or eating. ?? Avoid touching eyes, nose, and mouth. ?? Wear disposable gloves when handling the symptomatic person???s laundry. Place the laundry in a plastic bag. Use hot water and soap to wash the person???s laundry. Throw gloves away after use and wash hands immediately after removing gloves. ?? Clean ???high-touch?? surfaces every day (counters, tabletops, doorknobs, bathroom fixtures, toilets, phones, keyboards, bedside tables, etc.). Clean any surfaces that may have blood, stool or body fluids on them. ?? Use a household cleaning spray or wipe, according to the label instructions for safe and effective use of the cleaning product. ?? If family members start having symptoms like cough and fever, they should tell their primary care provider right away and the health department. ?? Both you and your family members should call ahead before visiting the doctor. Even with a medical appointment, call ahead and tell the office about the COVID-19 exposure. This helps the office take steps to keep others from getting infected or exposed. Q: What symptoms should I monitor for that may indicate that I need to seek medical attention rightaway? ?? If you have difficulty breathing or shortness of breath. ?? You have chest pain or pressure that lasts longer than 5 minutes. ?? You become confused or hard to awaken. ?? Your lips or face are blue. ?? You have a fever of 104??F (40??C) or higher. *This list is not all inclusive. Please consult your medical provider for any other symptoms that are severe or concerning. Q: Who do I call if I have questions? If you have questions about the testing for COVID-19, speak to the care team. Any other questions about coronavirus or COVID-19 should be directed to your primary care provider. If you have questions about your home quarantine, please call your local health department. Q: Where can I find more information? Centers for Disease Control and Prevention Phone: 9-992-3079695 Phone: [phone] Web Address: http://www.cdc.gov ??? [facility] COVID-19 Information o www.[email or web address]/coronavirus o [email or web address]-[email or web address]-[email or web address]/ In order to provide the best possible health care for you, [facility] would like to provide ongoing home monitoring if you have had a positive COVID-19 test or have symptoms consistent with COVID-19. After discharge, you will receive a call or Splitforcehart message (for those with a [employer] account) [facility] to discuss the home monitoring program and options available. Please note that the number we call from may appear as ???unknown,?blocked?? or as a ???1-800?? number. If you have any questions about the program, please call [phone] or toll-free [phone]. The COVID home monitoring program operates 8 am to 4:30 pm seven days a week. documented in this encounter Medications at Time of Discharge Accu-Chek Iwona Plus test strp strip TEST BS ONCE D 03/09/2020 Accu-Chek Softclix Lancets lancets USE TO TEST ONCE DAILY 03/09/2020 amLODIPine (NORVASC) 5 mg tablet Take 5 mg by mouth daily 05/22/2019 betamethasone valerate (VALISONE) 0.1 % cream Apply topically 2 times daily cyanocobalamin (Vitamin B-12) 100 mcg tabletIndication s:Prevention of Vitamin B12 Deficiency Take 100 mcg by mouth daily Monthly infusion ergocalciferol (VITAMIN D) 50,000 unit capsule Take 50,000 Units by mouth once a week 03/24/2021 glimepiride (AMARYL) 1 mg tablet TK 1 T PO QD 1 03/29/2019 lisinopril (PRINIVIL,ZESTRI L) 20 mg tablet Take 20 mg by mouth daily magnesium oxide 400 mg magnesium capsule Take 400 mg by mouth 2 (two) times a day metFORMIN (GLUCOPHAGE) 1,000 mg tablet Take 1,000 mg by mouth daily omeprazole (PriLOSEC) 20 mg capsule TK 1 C PO BID 30 MIN TO 1 HOUR AC 2 03/29/2019 predniSONE (DELTASONE) 5 mg tablet TAKE 1 TABLET BY MOUTH TWICE DAILY FOR 1 MONTH AND THEN REDUCE TO ONCE DAILY 03/03/2021 Trulicity 1.5 mg/0.5 mL pen injector ADMINISTER 1.5 MG UNDER THE SKIN 1 TIME A WEEK 09/24/2020 vit D3-vit J-safwelgvh-wawl [id number] gvtj-vcl-kr-mg tablet Take by mouth documented as of this encounter Discharge Disposition Disposition Code Departure Means Destination Discharge to home or self care documented in this encounter Nursing Notes * Adeline Oreilly RN - 04/22/2021 4:41 PM CDT Ambulatory pt brought in by wheelchair-pt drove self into the clinic for the Regen-Cov treatment; arrived a/o x 4 w/o complaints of pain; c/o runny nose, loss of taste & smell, SOB and frequent productive cough; education provided regarding infusion therapy, goals of treatment, expected length of time for completion, and potential side effects prior to initiating IV; pre VS stable with slightly elevated BP; infusion completed w/o complications; currently monitoringduring 1 hour observation period; pt is resting comfortably in the in recliner. 1 hour observation period complete w/o incident; post infusion VS stable w/ slightly elevated BP ; pt says that she is ready to eat- may stop for a bucket of chicken; discharge summary has been reviewed w/pt and then d/c'd and escorted to the parking lot to continue her quarantine period at home. Pt walked to her car with her cane after treatment. documented in this encounter Plan of Treatment Not on file documented as of this encounter Visit Diagnoses Diagnosis COVID-19- Primary documented in this encounter Administered Medications Inactive Administered Medications - up to 3 most recent administrations Medication Order MAR Action Action Date Dose Rate Site casirivimab-imdevimab (EUA) (REGEN-COV) 600 mg-600 mg/110 mL IVPB 1,200 mg 1,200 mg, intravenous, at 220 mL/hr, Administer over 30 Minutes, Once, On Tue04/22/21 at 1445, For 1 dose, Do not shake. Use a PVC, polyethylene-lined PVC, or polyurethane infusion set containing a 0.2 micron polyethersulfone filter., Does the patient have a laboratory-confirmed SARS-CoV-2 test (rapid antigen or PCR)? Yes, Date of test: 04/21/2021, Is the patient able to receive casirivimab and imdevimab within 10 days of symptom onset? Yes, Date of symptom onset: 04/17/2021, Does the patient have mild to moderate COVID-19? Yes, Patient has at least one of the following high-risk conditions (select all that apply): Older age, Obesity or overweight, I attest the information in the ? Fact Sheet for Patients, Parents, and Caregivers? has been communicated to the patient or parent/caregiver and that the patient/caregiver has been: given the ? Fact Sheet for Patients, Parents, and Caregivers? , informed of alternatives to receiving casirivimab and imdevimab, informed that casirivimab and imdevimab are unapproved drugs that are authorized for use under this Emergency Use AuthorizationIndications:COVID -19 New Bag 04/22/2021 2:50 PM CDT 1,200 mg 220 mL/hr sodium chloride 0.9% flush 10 mL 10 mL, intravenous, As needed, line care, Starting on Tue04/22/21 at 1403, Flush pre and post IV catheter use.Indications:COVID-19 Given 04/22/2021 3:25 PM CDT 10 mL Given 04/22/2021 2:29 PM CDT 10 mL sodium chloride 0.9% infusion 30 mL 30 mL, intravenous, Once, On Tue04/22/21 at 1445, For 1 doseIndications:COVID-19 New Bag 04/22/2021 2:28 PM CDT 30 mL documented in this encounter Orders Medications Ordered That Stephen ht Not Have Been Administered Count Last Ordered Date First Ordered Date diphenhydrAMINE (BENADRYL) capsule 50 mg 1 04/22/2021 diphenhydrAMINE (BENADRYL) injection 25 mg 1 04/22/2021 diphenhydrAMINE (BENADRYL) injection 50 mg 1 04/22/2021 diphenhydrAMINE (BENADRYL) tab/cap 25 mg 1 04/22/2021 EPINEPHrine 0.3 mg/0.3 mL syringe 0.3 mg 1 04/22/2021 ondansetron (ZOFRAN) injection 8 mg 1 04/22 sodium chloride 0.9% bolus 500 mL 1 021 Nursing Count Last Ordered Date First Orde red Date MONITOR PATIENT FOR HYPERSEN SITIVITY REACTIONS 1 04/22/2021 NURSING COMMUNICATION 4 04/22/2021 ONCBCN PROVIDER COMMUNICATION 1 1 ONCBCN PROVIDER COMMUNICATION 10 1 04/22/20 21 VITAL SIGNS 2 04/22/2021 Appointment Requests Count Last Ordered Date Fi rst Ordered Date INFUSION APPT REQUEST 150 MIN 1 04/22/2021 documented in this encounter Additional Health Concerns Infection Onset Date Last Indicated Resolved Time COVID19 04/21/2021 04/21/2021 05/05/2021 3:05 AM CDT documented as of this encounter Care Teams Cloth Hand Relationship Specialty Start Date End Date Angel Cottrell DO PCP - General Family Medicine 03/11/20 documented as of this encounter
--- OUTSIDE RECORDS SUMMARY | 2024-07-02 20:30 | XMS_ITS | Encounter Summary ---
Author Organization [facility] Medical Group Address [address] [place] [address] Care Team Providers Care Rn Cardiovascular Icu Name Role Phone Angel Cottrell DO Primary Care Provider [phone] Reason for Visit * Reason Onset Date Comments Covid-19 Home Monitoring 04/29/2021 Encounter Details Date Type Department Care Team (Late st Contact Info) Description 04/29/2021 Telephone [facility] Accountable Care Organization [address] [place] [id number] Georgina Hoffmann CMA [address] [place] [address] [address] [place] [address] Covid-19 Home Monitoring Social History Tobacco Use Types Packs/Day Years Used Date Smoking Tobacco: Former Smokeless Tobacco: Never Comments Unknown Sex and Gender Information Value Date Recorded Sex Assigned at Not on file 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 : No This patient is being disenrolled from the phone-only version of the COVID-19 home monitoring program for the following reason: Complete The patient has either completed the full 14-day program or has expressed 3 days of improved or no symptoms and 7 days since initial onset. We recommend that they are scheduled for a telemedicine evaluation with a primary care provider within 3 days of completion of the program. For questions or concerns about the home monitoring program, please contact . documented in this encounter Plan of Treatment Not on file documented as of this encounter Visit Diagnoses Not on filedocumented in this encounter Additional Health Concerns Infection Onset Date Last Indicated Resolved Time COVID19 04/21/2021 04/21/2021 05/05/2021 3:05 AM CDT documented as of this encounter Care Teams Rn Cardiovascular Icu Relationship Specialty Start Date End Date Angel Cottrell DO PCP - General Family Medicine 03/11/20 documented as of this encounter
--- OUTSIDE RECORDS SUMMARY | 2024-07-02 20:30 | XMS_ITS | Encounter Summary ---
Author Organization [facility] Medical Group Address [address] [place] [address] Care Team Providers Care Onshore Diver Name Role Phone Angel Cottrell DO Primary Care Provider [phone] Reason for Visit * Reason Comments Covid Pt was exposed to co vid + son on Tuesday and Wednesday 11/22 & 11/23. Pt denies any sx's. 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 Gender Identity Not on file Sexual Orientation Not on file documented as of this encounter Last Filed Vital Signs Vital Sign Reading Time Taken Comments Blood Pressure 132/68 11/26/2020 1:40 PM CDT Pulse 100 11/26/2020 1:40 PM CDT Temperature 37.2 ??C (99 ??F) 11/26/2020 1:40 PM CDT Respiratory Rate 16 11/26/2020 1:40 PM CDT Oxygen Saturation 97% 11/26/2020 1:40 PM CDT Inhaled Oxygen Concentration - - Weight 98.9 kg (218 lb) 11/26/2020 1:40 PM CDT Height 157.5 cm (5' 2 ) 11/26/2020 1:40 PM CDT Body Mass Index 39.87 11/26/2020 1:40 PM CDT documented in this encounter Patient Instructions * Patient Instructions* Christopher Houston WILDLIFE PHOTOGRAPHER - 11/26/2020 1:30 PM CDT Instructions following testing for COVID-19: Today you received test for SARS-COV2 (COVID-19). Please follow the instructions below regarding quarantine and return to work/daycare/school based on your results, symptoms and exposures. If you are NEGATIVE, AND: 1. NO symptoms and NO known/possible exposure: NO need to isolate. 2. NO symptoms and YES known/possible exposure: quarantine for 14 days after last potential exposure. A negative test of a specific day cannot be used to release from quarantine since the patience could become positive during the 14- day period. 3. YES symptoms and NO known/possible exposure: quarantine until without fever for 24 hours AND symptoms improve. 4. YES symptoms and YES known/possible exposure: you must quarantine for 14 days from last known exposure date. A negative test of a specific day cannot be used to release from quarantine since the patient could become positive during the 14 day period. 5. YES symptoms and YES known/possible exposure and HAVE BEEN VACCINATED: you ONLY QUARANTINE untilyou are fever free AND symptoms improve. 6. NO symptoms and YES known/possible exposure and HAVE BEEN VACCINATED: NO RECOMMENDATION FOR QUARANTINE. If you are POSITIVE: You should isolate for 10 days from onset of symptoms, NOT FROM DATE OF POSITIVE TEST. You must be without fever for 24 hours AND symptoms improving AND released by the local health department. All household contacts must quarantine for 14 days from last potential exposure to positive patient. If household contacts cannot fully isolate, then quarantine for household contacts extends for 14 days beyond the 10 days from start of symptoms (may be up to 24 days of quarantine). ??? COVID-19 is a highly communicable disease (very contagious) that is spread through droplets viacough, sneeze, speech at close contact. ??? You will need to continue to wear a mask per CDC guidelines. ??? If at any time you feel significantly short of breath or chest pain/tightness, or change in mental status please go to the ER. documented in this encounter Progress Notes * Christopher Houston NP - 11/26/2020 1:30 PM CDT Images from the original note were not included. Subjective/Objective Patient: Edith Mayo is a 70 y.o. female followed by Angel Cottrell, DO COVID-19 ROS: Patient presents to clinic for assessment of Chief Complaint Patient presents with ??? Covid Pt was exposed to covid + son on Tuesday and Wednesday 11/22 & 11/23. Pt denies any sx's. . Reports NO SYMPTOMS Reports symptom duration of N/A Sick or suspected COVID-19 contacts: YES, SON Patient has following risks for COVID-19: Patient age over 65 Patient has diabetes with complications No history of prior COVID infection Vaccinated: NO -- Date: N/A Social History Tobacco Use Smoking Status Former Smoker Smokeless Tobacco Never Used Vitals: 11/26/20 1340 BP: 132/68 BP Location: Left arm Patient Position: Sitting Pulse: 100 Resp: 16 Temp: 37.2 ??C (99 ??F) TempSrc: Oral SpO2: 97% Weight: 98.9 kg (218 lb) Height: 157.5 cm (5' 2 ) Chief Complaint Patient presents with ??? Covid Pt was exposed to covid + son on Tuesday and Wednesday 11/22 & 11/23. Pt denies any sx's. Patient presents to clinic requesting COVID-19 swab after known/possible exposure. Exposure date 11/23/2020 via patient's son. Patient denies symptoms including fever, chills, n/v/d, excessive fatigue, loss of taste/smell, rhinorrhea, congestion, sinus pain/pressure, sore throat, cough. Review of Systems Constitutional: Negative for chills and fever. HENT: Negative for congestion, ear pain, rhinorrhea, sinus pressure, sinus pain, sneezing and sore throat. Eyes: Negative. Respiratory: Negative for cough, chest tightness, shortness of breath and wheezing. Cardiovascular: Negative for chest pain. Gastrointestinal: Negative for constipation, diarrhea, nausea and vomiting. Endocrine: Negative. Genitourinary: Negative. Musculoskeletal: Negative for arthralgias and myalgias. Skin: Negative. Allergic/Immunologic: Negative for environmental allergies. Neurological: Negative for headaches. Hematological: Negative for adenopathy. Psychiatric/Behavioral: Negative. Physical Exam Vitals and nursing note reviewed. Constitutional: Appearance: Normal appearance. HENT: Head: Normocephalic and atraumatic. Right Ear: Hearing and external ear normal. Left Ear: Hearing and external ear normal. Nose: Nose normal. Mouth/Throat: Lips: [place]. Mouth: Mucous membranes are moist. Pharynx: Oropharynx is clear. Cardiovascular: Rate and Rhythm: Normal rate and regular rhythm. Heart sounds: Normal heart sounds, S1 normal and S2 normal. Pulmonary: Effort: Pulmonary effort is normal. Breath sounds: Normal breath sounds and air entry. No decreased breath sounds, wheezing, rhonchi orrales. Musculoskeletal: General: Normal range of motion. Skin: General: Skin is warm and dry. Neurological: General: No focal deficit present. Mental Status: She is alert and oriented to person, place, and time. Psychiatric: Mood and Affect: Mood normal. Behavior: Behavior normal. Assessment/Plan Diagnoses and all orders for this visit: Close exposure to COVID-19 virus (Primary) - COVID-19 POC Orders Placed This Encounter Procedures ??? COVID-19 POC Order Specific Question: Is the Patient experiencing symptoms consistent with COVID? Answer: No Order Specific Question: Is the patient hospitalized? Answer: No Order Specific Question: Is the patient admitted to an ICU? Answer: No Order Specific Question: Is this the first COVID-19 test for this patient? Answer: No Order Specific Question: Does the patient currently work in a healthcare facility with direct patient contact? Answer: No Order Specific Question: Is the patient a resident of a congregate care or living setting? Answer: No Order Specific Question: Is the patient ? Answer: No Results for orders placed or performed in visit on 11/26/20 COVID-19 POC Result Value Ref Range COVID-19 Ag POC ([facility]Start) Presumptive Negative Presumptive Negative, Invalid # COVID-19 known exposure # not vaccinated --start 14-day quarantine from date of exposure (11/23/2020) --OTC symptomatic treatment --discussed various types of COVID-19 testing; will notify patient with antigen test results --briefly discussed monoclonal antibody therapy --ED presentation w/ one or more of the following symptoms: fever uncontrolled with antipyretics, shortness of breath, chest discomfort, uncontrolled n/v/d --f/u with PCP post-quarantine if symptoms continue/worsen and to discussed vaccine options Patient Instructions: Instructions following testing for COVID-19: Today you received test for SARS-COV2 (COVID-19). Please follow the instructions below regarding quarantine and return to work/daycare/school based on your results, symptoms and exposures. If you are NEGATIVE, AND: 1. NO symptoms and NO known/possible exposure: NO need to isolate. 2. NO symptoms and YES known/possible exposure: quarantine for 14 days after last potential exposure. A negative test of a specific day cannot be used to release from quarantine since the patience could become positive during the 14- day period. 3. YES symptoms and NO known/possible exposure: quarantine until without fever for 24 hours AND symptoms improve. 4. YES symptoms and YES known/possible exposure: you must quarantine for 14 days from last known exposure date. A negative test of a specific day cannot be used to release from quarantine since the patient could become positive during the 14 day period. 5. YES symptoms and YES known/possible exposure and HAVE BEEN VACCINATED: you ONLY QUARANTINE untilyou are fever free AND symptoms improve. 6. NO symptoms and YES known/possible exposure and HAVE BEEN VACCINATED: NO RECOMMENDATION FOR QUARANTINE. If you are POSITIVE: You should isolate for 10 days from onset of symptoms, NOT FROM DATE OF POSITIVE TEST. You must be without fever for 24 hours AND symptoms improving AND released by the local health department. All household contacts must quarantine for 14 days from last potential exposure to positive patient. If household contacts cannot fully isolate, then quarantine for household contacts extends for 14 days beyond the 10 days from start of symptoms (may be up to 24 days of quarantine). ??? COVID-19 is a highly communicable disease (very contagious) that is spread through droplets viacough, sneeze, speech at close contact. ??? You will need to continue to wear a mask per CDC guidelines. ??? If at any time you feel significantly short of breath or chest pain/tightness, or change in mental status please go to the ER. Brief: Treatment plan including expectations, follow up, and return precautions discussed with patient/parent, verbalizes understanding. Medication dosage, use, and potential adverse reactions discussed with patient/parent. Advised to follow up with PCP if symptoms do not resolve as expected or sooner if condition worsens. Signs/symptoms warranting ER evaluation reviewed. Patient and/or guardian was given an opportunity to ask questions, questions answered. ??? Patient was wearing the following PPE: mask. ??? MA wearing the following PPE: mask, gown, gloves, face shield. ??? Provider wearing the following PPE: mask, gown, gloves, face shield. Christopher Houston NP documented in this encounter Plan of Treatment Not on file documented as of this encounter Procedures Procedure Name Priority Date/Time Associated Diagnosis Comments COVID-19 POC Routine 11/26/2020 2:03 PM CDT Close exposure to COVID-19 virus documented in this encounter Results * COVID-19 POC (11/26/2020 2:03 PM CDT) COVID-19 Ag POC (BD Veritor) Presumptive Negative Presumptive Negative, Invalid [facility] Nasal 11/26/2020 2:03 PM CDT us Christopher Houston NP POINT OF CARE TEST ORDERABL ES Edited Result - Final [facility] [address] [place] [address] [place] [address] documented in this encounter Visit Diagnoses Diagnosis Close exposure to COVID-19 virus- Primary documented in this encounter Historical Medications * This list may reflect changes made after this encounter. vit D3-vit A-xjfkenack-uhvj [phone] fnve-nvp-rf-mg tablet Take by mouth cyanocobalamin (Vitamin B-12) 100 mcg tabletIndication s:Prevention of Vitamin B12 Deficiency Take 100 mcg by mouth daily Monthly infusion Trulicity 1.5 mg/0.5 mL pen injector ADMINISTER 1.5 MG UNDER THE SKIN 1 TIME A WEEK 09/24/2020 added in this encounter Care Teams Onshore Diver Relationship Specialty Start Date End Date Angel Cottrell DO PCP - General Family Medicine 03/11/20 documented as of this encounter
--- OUTSIDE RECORDS SUMMARY | 2024-07-02 20:30 | XMS_ITS | Encounter Summary ---
Author Organization [facility] Medical Group Address [address] [place] [address] Care Team Providers Care Gum Scoring Machine Operator Name Role Phone Angel Cottrell DO Primary Care Provider [phone] Reason for Visit * Reason Onset Date Comments Covid-19 Home Monitoring 04/24/2021 daily c all Encounter Details Date Type Department Care Team ([facility] Contact Info) Description 04/24/[address] 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 Gender Identity Not on file Sexual Orientation Not on file documented as of this encounter Last Filed Vital Signs Vital Sign Reading Time Taken Comments Blood Pressure - - Pulse - - Temperature 37.2 ??C (98.9 ??F) 04/24/2021 11:09 AM C DT Respiratory Rate - - Oxygen Saturation - - Inhaled Oxygen Concentration - - Weight - - Height - - Body Mass Index - - documented in this encounter Miscellaneous Notes * Telephone Encounter - Nelson Worthington MA - 04/24/2021 11:06 AM CDT COVID-19 Home Monitoring Flowsheet Answers: Temp/Pulse Ox Temp: 37.2 ??C (98.9 ??F) Symptom Monitoring Are you feeling short of breath today?: No Are you having a cough today?: Yes Cough Details:: Better Are you experiencing weakness today?: Yes Weakness Details:: Better How is your appetite compared to yesterday?: Better Are you vomiting?: No Are you experiencing diarrhea? : Yes Diarrhea Details:: Better This patient has enrolled in the PHONE ONLY version of COVID-19 Home Monitoring Program. COVID-19 Symptom questionnaire was completed today. Symptoms were addressed to be Moderate. Escalation was notneeded. Next Program Call Due: 04/25 documented in this encounter Plan of Treatment Not on file documented as of this encounter Visit Diagnoses Not on filedocumented in this encounter Additional Health Concerns Infection Onset Date Last Indicated Resolved Time COVID19 04/21/2021 04/21/2021 05/05/2021 3:05 AM CDT documented as of this encounter Care Teams Gum Scoring Machine Operator Relationship Specialty Start Date End Date Angel Cottrell DO PCP - General Family Medicine 03/11/20 documented as of this encounter
--- OUTSIDE RECORDS SUMMARY | 2024-07-02 20:30 | XMS_ITS | Encounter Summary ---
Author Organization [facility] Medical Group Address [address] [place] [address] Care Team Providers Care Career Services Assistant Name Role Phone Angel Cottrell DO Primary Care Provider [phone] Reason for Visit * Reason Onset Date Comments Covid-19 Home Monitoring 04/26/2021 Encounter Details Date Type Department Care Team (Late st Contact Info) Description 04/26/[address] 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 Next Program Call Due: 04/27/21 documented in this encounter Plan of Treatment Not on file documented as of this encounter Visit Diagnoses Not on filedocumented in this encounter Additional Health Concerns Infection Onset Date Last Indicated Resolved Time COVID19 04/21/2021 04/21/2021 05/05/2021 3:05 AM CDT documented as of this encounter Care Teams Career Services Assistant Relationship Specialty Start Date End Date Angel Cottrell DO PCP - General Family Medicine 03/11/20 documented as of this encounter
--- OUTSIDE RECORDS SUMMARY | 2024-07-02 20:30 | XMS_ITS | Encounter Summary ---
Author Organization [facility] Medical Group Address [address] [place] [address] Care Team Providers Care Strategy Analyst Name Role Phone Angel Cottrell DO Primary Care Provider [phone] [phone] Reason for Visit * Reason Onset Date Comments Covid-19 Home Monitoring 04/22/2021 Enrollm ent call day 1 Encounter Details Date Type Department Care Team (Late st Contact Info) Description 04/22/2021 Telephone [facility] Accountable Care Organization [address] [place] [address] Mouna Jones MA [address] [place] [address] Covid-19 Home Monitoring (Enrollment call day 1 ) Social History Tobacco Use Types Packs/Day Years Used Date Smoking Tobacco: Former Smokeless Tobacco: Never Comments Unknown Sex and Gender Information Value Date Recorded Sex Assigned at Not on file 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 The patient was contacted via phone for enrollment in the program. The patient has declined to participate in the automated MyChart Production Inspector Program, but has verbally agreed to the Phone Only Home Monitoring Program, which includes being contacted for a daily phone assessment by a [facility]/ staff member. The patient was informed that members of the healthcare team will contact them depending on the symptoms that they report. This call could come from a variety of phone numbers depending on which member of the healthcare team is contacting the patient, and the patient should be prepared to answer calls from a variety of phone numbers. If the patient is unable to be reached for 3 days, they will be disenrolled from the program. Patient is aware that we will try and reach them at every available phone number, including HIPAA contacts. After review, the patient agreed to participate. The ???COVID19 Home Monitoring?? order was placedto enroll the patient in the phone only version of the program. documented in this encounter Plan of Treatment Not on file documented as of this encounter Visit Diagnoses Not on filedocumented in this encounter Additional Health Concerns Infection Onset Date Last Indicated Resolved Time COVID19 04/21/2021 04/21/2021 05/05/2021 3:05 AM CDT documented as of this encounter Care Teams Strategy Analyst Relationship Specialty Start Date End Date Angel Cottrell DO PCP - General Family Medicine 03/11/20 documented as of this encounter
--- OUTSIDE RECORDS SUMMARY | 2024-07-02 20:30 | XMS_ITS | Encounter Summary ---
Author Organization [facility] Medical Group Address [address] [facility] [place] [address] Care Team Providers Care Library Historian Name Role Phone Angel Cottrell DO Primary Care Provider [phone] [phone] Encounter Details Date Type Department Care Team (Late st Contact Info) Description 07/04/2020 Telephone [facility] [address] [place] [address] Inderjit Lee MD [address] [place] [address] [address] [place] [address] Social History Tobacco Use Types Packs/Day Years Used Date Smoking Tobacco: Former Smokeless Tobacco: Never Comments Unknown Sex and Gender Information Value Date Recorded Sex Assigned at Not on file 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 Gender Identity Not on file Sexual Orientation Not on file documented as of this encounter Miscellaneous Notes * Telephone Encounter - Sunshine Acevedo MA - 07/04/2020 10:21 AM CST Okay to reschedule when patient called NOMETER REPAIRER * Telephone Encounter - Cr Boggs - 07/04/2020 9:32 AM CST Appointment Cancellation Appt date/time:07/04/20 2 pm Reason for appt:DM Reason for cxl:Knee pain, going to ER, will c/b to r/s NOV:- IESHA:03/20/20 # of cxl or no shows in last year:3 Controlled Rx:- NOMETER REPAIRER documented in this encounter Plan of Treatment Not on file documented as of this encounter Visit Diagnoses Not on filedocumented in this encounter Care Teams Library Historian Relationship Specialty Start Date End Date Angel Cottrell DO PCP - General Family Medicine 03/11/20 documented as of this encounter
--- OUTSIDE RECORDS SUMMARY | 2024-07-02 20:30 | XMS_ITS | Clinical Summary ---
Author Organization [facility] Address [address] [place] [address] Care Team Providers Care Weaving Machine Operator Name Role Phone Angel Cottrell DO Primary Care Provider [phone] [phone] Allergies Active Allergy Reactions Criticality Noted Date [...] mouth daily Monthly infusion Active vit D3-vit C-psfkrwpud-vov s [id number] mlvp-jex-yd-mg tablet Take by mouth Active ergocalciferol (VITAMIN [...] - continue medication and follow up with Fingernail Former. MADDY (obstructive sleep apnea) 03/20/2020 Type 2 [...] low sugars. Ophthalmology exam on regular basis. 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
--- OUTSIDE RECORDS SUMMARY | 2024-07-02 20:30 | XMS_ITS | Encounter Summary ---
Author Organization [facility] Address [address] [place] [address] Care Team Providers Care Billing Machine Operator Name Role Phone Angel Cottrell DO Primary Care Provider [phone] [phone] Reason for Visit * Reason Onset Date Comments Covid-19 Home Monitoring 04/28/2021 daily c all Encounter Details Date Type Department Care Team ([facility] st Contact Info) Description 04/28/2021 Telephone [facility] Accountable Care Organization [address] [place] [address] Nelson Worthington MA [address] [facility] [place] [address] Covid-19 Home Monitoring (daily call ) Social History Tobacco Use Types Packs/Day Years Used Date Smoking Tobacco: Former Smokeless Tobacco: Never Comments Unknown Sex and Gender Information Value Date Recorded Sex Assigned at Not on file Legal Sex Female 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 Next Program Call Due: 04/29 documented in this encounter Plan of Treatment Not on file documented as of this encounter Visit Diagnoses Not on filedocumented in this encounter Additional Health Concerns Infection Onset Date Last Indicated Resolved Time COVID19 04/21/2021 04/21/2021 05/05/2021 3:05 AM CDT documented as of this encounter Care Teams Billing Machine Operator Relationship Specialty Start Date End Date Angel Cottrell DO PCP - General Family Medicine 03/11/20 documented as of this encounter
--- OUTSIDE RECORDS SUMMARY | 2024-07-02 20:30 | XMS_ITS | Encounter Summary ---
Author Organization [facility] Medical [facility] Address [address] [place] [address] Care Team Providers Care Electrical And Instrument Technician Name Role Phone Angel Cottrell DO Primary Care Provider [phone] Reason for Visit * Reason Onset Date Comments Covid-19 Home Monitoring 04/27/2021 daily c all Encounter Details Date Type Department Care Team ([facility] st Contact Info) Description 04/27/2021 Telephone [facility] Accountable Care Organization [address] [place] [address] Nelson Worthington MA [address] [facility] [address] [place] [address] Covid-19 Home Monitoring (daily call ) Social History Tobacco Use Types Packs/Day Years Used Date Smoking Tobacco: Former Smokeless Tobacco: Never Comments Unknown Sex and Gender Information Value Date Recorded Sex Assigned at Not on file 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 Next Program Call Due: 04/27 documented in this encounter Plan of Treatment Not on file documented as of this encounter Visit Diagnoses Not on filedocumented in this encounter Additional Health Concerns Infection Onset Date Last Indicated Resolved Time COVID19 04/21/2021 04/21/2021 05/05/2021 3:05 AM CDT documented as of this encounter Care Teams Electrical And Instrument Technician Relationship Specialty Start Date End Date Angel Cottrell DO PCP - General Family Medicine 03/11/20 documented as of this encounter
--- OUTSIDE RECORDS SUMMARY | 2024-07-02 20:31 | XMS_ITS | Encounter Summary ---
Author Organization [facility] [employer] [facility] Address [address] [place] [address] Care Team Providers Care Swing Tender Name Role Phone Wiley Causey MD Primary Care Provider [phone] Encounter Details Date Type Department Care Team ([facility] Contact Info) Description 11/08/2023 Orders Only [facility] Oncology and Hematology - [place] [address] [place] [address] Brisa Schafer MD [id number] [place] [address] Social History Tobacco Use Types Packs/Day Years Used Date Smoking Tobacco: Former Cigarettes 2 25 1 982 - 2006 Smokeless Tobacco: Never Alcohol Use Standard Drinks/Week Comments Yes 0 (1 standard drink = 0.6 oz pur e alcohol) Sex and Gender Information Value Date Recorded Sex Assigned at Not on file Gender Identity Not on file Sexual Orientation Not on file documented as of this encounter Plan of Treatment Upcoming Encounters Date Type Department Care Team (Late Contact Info) Description 12/26/2024 1:00 PM CDT Office Visit [facility] Oncology and Hematology - [place] [address] [place] [address] Gabo Jiang MD [address] [place] [address] documented as of this encounter Procedures Procedure Name Priority Date/Time Associated Diagnosis Comments BASIC METABOLIC PANEL Routine 11/07/2023 9:06 AM CDT documented in this encounter Results * BASIC METABOLIC PANEL (11/07/2023 9:06 AM CDT) Blood Brisa Schafer MD CHEMISTRY ORDERABLES documented in this encounter Visit Diagnoses Not on filedocumented in this encounter Care Teams Swing Tender Relationship Specialty Start Date End Date Wiley Causey MD PCP - General Family Practice 08/04/21 documented as of this encounter
--- OUTSIDE RECORDS SUMMARY | 2024-07-02 20:31 | XMS_ITS | Encounter Summary ---
Author Organization [facility] [employer] [facility] Address [address] [place] [address] Care Team Providers Care Electrical Line Splicer Name Role Phone Wiley Causey MD Primary Care Provider [phone] Encounter Details Date Type Department Care Team (Late Contact Info) Description 07/16/2022 Orders Only [facility] Oncology and Hematology - [place] [address] [place] [address] Marguerite Koch Chronic anemia Social History Tobacco Use Types Packs/Day Years Used Date Smoking Tobacco: Former Cigarettes 2 - 2006 Smokeless Tobacco: Never Alcohol Use Standard Drinks/Week Comments Yes 0 (1 standard drink = 0.6 oz pur e alcohol) Sex and Gender Information Value Date Recorded Sex Assigned at Not on file Gender Identity Not on file Sexual Orientation Not on file documented as of this encounter Plan of Treatment Upcoming Encounters Date Type Department Care Team (Late st Contact Info) Description 12/26/2024 1:00 PM CDT Office Visit [facility] Oncology and Hematology - [place] [address] [place] [address] Gabo Jiang MD [address] [facility] [address] [place] [address] documented as of this encounter Visit Diagnoses Diagnosis Chronic anemia Anemia, unspecified documented in this encounter Care Teams Electrical Line Splicer Relationship Specialty Start Date End Date Wiley Causey MD PCP - General Family Practice 08/04/21 documented as of this encounter
--- OUTSIDE RECORDS SUMMARY | 2024-07-02 20:31 | XMS_ITS | Encounter Summary ---
Author Organization [facility] Healthcare Address [address] [place] [address] Care Team Providers Care C++ Professor Name Role Phone Unavailable Primary Care Provider Unavailabl e Encounter Details Date Type Department Care Team (Latest Contact Info) Description 02/25/2016 7:06 AM CDT - 02/25/2016 11:59 PM CDT Hospital Encounter [facility] Homar Munguia MD Formerly named [facility] [place] [place] [address] Type 2 diabetes mellitus with hyperglycemia (CMS/[facility]) Social History Tobacco Use Types Packs/Day Years Used Date Smoking Tobacco: Never Assessed Comments Unknown Sex and Gender Information Value Date Recorded Sex Assigned at Not on file 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 us Historical Provider LAB BLOOD ORDERABLES Katelyn l Result * (ABNORMAL) Serum lipid panel (02/25/2016 7:17 AM CDT) [facility] Cholesterol 177 40 - 199 mg/dl CDR HISTORICAL RESULTS Comment: Interpretive Data Desirable: ??Less than 200 mg/dl ? Borderline High: ?200 - 239 mg/dl ? High: ??Greater than ?? 239 mg/dl Current interpretive data was last revised on 2014. Triglycerides 185(H) <=150 mg/dl CDR HISTORICAL RESULTS Comment: Interpretive Data Normal: ? Less than 150 mg/dl Borderline high: ??105-199 mg/dl ?? High: ? 200-499 mg/dl ? Very high: ??Greater than or equal to 500 mg/dl Current interpretive data was last revised on 2014. HDL 41 40 - 60 mg/dl CDR HISTORICAL RESULTS Comment: Interpretive Data Low HDL Cholesterol: ? Less than 40 mg/dl Normal HDL Cholesterol: ??40-60 mg/dl High HDL Cholesterol: ?Greater than 60 mg/dl Current interpretive data was last revised on 2014. LDL 99 mg/dl CDR HISTOR ICAL RESULTS Comment: Interpretive Data Optimal ? Less than 100 mg/dL ? Near optimal/Above optimal ??100 - 129 mg/dL ? Borderline high ? 130 - 159 mg/dL ? High ?160 - 189 mg/dL ? Very high ? Greater than or = 190 mg/dL ? LDL values are not valid when the total Triglyceride is greater than 300 mg/dL. Current interpretive data was last revised on 2014. Non-HDL cholesterol, calculated 136 mg/dl CDR HISTORICAL RESULTS Comment: Interpretive Data Optimal ? Less than 130 mg/dL Low Risk ?130 - 159 mg/dL Moderate Risk ? 160 - 189 mg/dL High Risk ? Greater than or equal to 190 mg/dL Current interpretive data was last revised on 2014. Serum 02/25/2016 7:17 AM CDT Historical Provider LAB BLOOD ORDERABLES Katelyn l Result Performing Organization Address [facility] Co de Phone Number CDR HISTORICAL RESULTS * (ABNORMAL) Blood hemoglobin A1C (02/25/2016 7:17 AM CDT) Hgb A1C 8.7(H) 4.0 - 6.0 % CDR HISTORICAL RESULTS Estimated average glucose 203 mg/dl CDR HISTORICAL RESULTS Blood specimen (specimen) 02/25/2016 7:17 AM CDT Historical Provider LAB BLOOD ORDERABLES Katelyn l Result Performing Organization Address City/State/[facility] Co de Phone Number CDR HISTORICAL RESULTS documented in this encounter Visit Diagnoses Diagnosis Type 2 diabetes mellitus with hyperglycemia (CMS/HCC) (HCC) documented in this encounter
--- OUTSIDE RECORDS SUMMARY | 2024-07-02 20:31 | XMS_ITS | Encounter Summary ---
Author Organization [facility] Healthcare Address [address] [place] [address] Care Team Providers Care Circuit Design Engineer Name Role Phone Unavailable Primary Care Provider Unavailabl e Encounter Details Date Type Department Care Team (Late st Contact Info) Description 07/07/2014 8:58 AM REVIEW MANAGER - 07/07/2014 9:40 AM REVIEW MANAGER Hospital Encounter [facility] Camron Martines MD [address] [place] [address] Conjunctivitis Social History Tobacco Use Types Packs/Day Years Used Date Smoking Tobacco: Never Assessed Comments Unknown Sex and Gender Information Value Date Recorded Sex Assigned at Not on file Legal Sex Female 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
--- OUTSIDE RECORDS SUMMARY | 2024-07-02 20:31 | XMS_ITS | Encounter Summary ---
Author Organization [facility] Healthcare Address [address] [place] [address] Care Team Providers Care Salesperson Floor Coverings Name Role Phone Unavailable Primary Care Provider Unavailabl e Encounter Details Date Type Department Care Team (Latest Contact Info) Description 06/22/2016 7:03 AM TRACK WELDER - 06/22/2016 11:59 PM TRACK WELDER Hospital Encounter [facility] Homar Barrow MD [facility] [place] [address] Type 2 diabetes mellitus with hyperglycemia ([facility]) Social History Tobacco Use Types Packs/Day Years Used Date Smoking Tobacco: Never Assessed Comments Unknown Sex and Gender Information Value Date Recorded Sex Assigned at Not on file Legal Sex Female 8:44 PM TRACK WELDER Gender Identity Not on file Sexual Orientation Not on file documented as of this encounter Plan of Treatment Not on file documented as of this encounter Procedures Procedure Name Priority Date/Time Associated Diagnosis Comments DISCHARGE LABORATORY CUMULATIVE REPORT 06/23/2016 BLOOD HEMOGLOBIN A1C Routine 06/22/2016 7:10 AM TRACK WELDER documented in this encounter Results * DISCHARGE LABORATORY CUMULATIVE REPORT (06/23/2016) Narrative 06/23/2016 Ordered by an unspecified provider. us Historical Provider LAB BLOOD ORDERABLES Katelyn sena Result * Blood hemoglobin A1C (06/22/2016 7:10 AM TRACK WELDER) Hgb A1C 6.0 4.0 - 6.0 % CDR HISTORICAL RESULTS Estimated average glucose 126 mg/dl CDR HISTORICAL RESULTS Blood specimen (specimen) 06/22/2016 7:10 AM TRACK WELDER us Historical Provider LAB BLOOD ORDERABLES Katelyn sena Result CDR HISTORICAL RESULTS documented in this encounter Visit Diagnoses Diagnosis Type 2 diabetes mellitus with hyperglycemia (CMS/HCC) (HCC) documented in this encounter
--- OUTSIDE RECORDS SUMMARY | 2024-07-02 20:31 | XMS_ITS | Encounter Summary ---
Author Organization [facility] Address [address] Attn: Epic Prelude ADT [place] [address] Care Team Providers Care School Bus Inspector Name Role Phone Wiley Causey MD Primary Care Provider [phone] [phone] Encounter Details Date Type Department Care Team (Latest Contact Info) Description 07/21/2022 Travel Social History Tobacco Use Types Packs/Day Years Used Date Smoking Tobacco: Former Cigarettes - 2006 Smokeless Tobacco: Never Alcohol Use [...] suspected to have Coronavirus/COVID-19? No / Unsure 07/21/2022 1:54 PM PLUSH CUTTER documented as of this encounter Plan of Treatment Upcoming Encounters Date Type Department Care Team (Late st Contact Info) Description 12/26/2024 1:00 PM CDT Office Visit [facility] Oncology and Hematology - [place] [address] [place] [address] [address] [place] [address] Gabo Jiang MD [address] [facility] [address] [place] [address] documented as of this encounter Visit Diagnoses Not on filedocumented in this encounter Care Teams School Bus Inspector Relationship Specialty Start Date End Date Wiley Causey MD PCP - General Family Practice 1/18/22 documented as of this encounter
--- OUTSIDE RECORDS SUMMARY | 2024-07-02 20:31 | XMS_ITS | Encounter Summary ---
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 Name Role Phone Sheldon Santos MD Primary Care Provide r Reason for Visit * Reason Comments Headache Encounter Details Date Type Department Care Team ([facility] st Contact Info) Description 06/12/2019 6:46 PM FITTING ROOM INSPECTOR - 06/13/2019 3:56 AM FITTING ROOM INSPECTOR Emergency [facility] Emergency Department [address] [place] [address] Wilmar Cuellar MD [address] [place], [place] [id number] Headache syndrome (Primary Dx) Discharge Disposition: Discharge to home or self care Social History Tobacco Use Types Packs/Day Years Used Date Smoking Tobacco: Never Assessed Comments Unknown Sex and Gender Information Value Date Recorded Sex Assigned at Not on file Legal Sex Female 8:44 PM FITTING ROOM INSPECTOR Gender Identity Not on file Sexual Orientation Not on file documented as of this encounter Last Filed Vital Signs Vital Sign Reading Time Taken Comments Blood Pressure 105/89 06/13/2019 3:50 AM FITTING ROOM INSPECTOR Pulse 95 06/13/2019 3:50 AM FITTING ROOM INSPECTOR Temperature 36.4 ??C (97.5 ??F) 06/12/2019 2:31 PM CS T Respiratory Rate 16 06/12/2019 2:31 PM FITTING ROOM INSPECTOR Oxygen Saturation 97% 06/13/2019 3:50 AM FITTING ROOM INSPECTOR Inhaled Oxygen Concentration - - Weight - - Height 157.5 cm (5' 2 ) 06/12/2019 1:17 PM FITTING ROOM INSPECTOR Body Mass Index - - documented in this encounter Discharge Diagnoses Diagnosis Headache - HEADACHE Type 2 diabetes mellitus without complications ([facility]/HCC) (HCC) - TYPE 2 DIABETES MELLITUS WITHOUT COMPLICATIONS 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 You may start at 100mg three times per day. If this does not improve your symptoms please increase the dose by 100mg (so you will take 200mg three times per day). You may increase up to a maximum of 300mg three times per day. You should hear from neurology within the next two weeks for an appointment. If you do not hear from them please call [phone]. Please return to the nearest ER immediately if you have any worsening fevers, chills, chest pain, shortness of breath, especially weakness, numbness, difficulty walking, or changes in your vision as you may have an emergency medical condition necessitating additional management and possible inpatient admission. Please follow up with the neurology service here at the appointment to be scheduled . Please have your primary care physician review non-acute laboratory or imaging findings for outpatient managementas included in your discharge paperwork. Please call [phone] if you do not hear from the neurology service Please call us if you have any questions: [facility] ER - [phone] [facility] ER - [phone] [facility] ER - [phone] You may receive a call from one of our facilities to see how you are doing over the next week and it will likely show up as a [phone]) area code number you may not recognize. Please ensure you are able to be contacted. ING ROOM INSPECTOR ING ROOM INSPECTOR documented in this encounter Medications at Time of Discharge amLODIPine (NORVASC) 5 mg tablet Take 5 mg by mouth daily 05/22/2019 betamethasone valerate (VALISONE) 0.1 % cream Apply topically 2 times daily gabapentin (NEURONTIN) 100 mg capsule Take 1 capsule (100 mg total) by mouth 3 (three) times a day 60 capsule 06/13/2019 glimepiride (AMARYL) 1 mg tablet TK 1 T PO QD 1 03/29/2019 lisinopril (PRINIVIL,ZESTRI L) 20 mg tablet Take 20 mg by mouth daily metFORMIN (GLUCOPHAGE) 1,000 mg tablet Take 1,000 mg by mouth daily omeprazole (PriLOSEC) 20 mg capsule TK 1 C PO BID 30 MIN TO 1 HOUR AC 2 03/29/2019 documented as of this encounter Ordered Prescriptions Prescription Sig Dispense Quantity Refills Last Filled Start Date End Date gabapentin (NEURONTIN) 100 mg capsule Take 1 capsule (100 mg total) by mouth 3 (three) times a day 60 capsule 06/13/2019 documented in this encounter Discharge Disposition Disposition Code Departure Means Destination Discharge to home or self care documented in this encounter Consult Notes * Patience De La Fuente MD - 06/12/2019 11:30 PM CSTAssociated Order(s): IP CONSULT TO NEUROLOGY Neurology Consult Note Requesting Provider: Wilmar Cuellar MD, Emergency Reason for Consult: c/f cerebellar stroke NAME: Edith Mayo : 1950 CC: Headache SUBJECTIVE HPI: Edith Mayo is a 69 y.o. female with PMH significant for DM2, HTN who neurology is seeing in consultation for a R temporal headache. She reports that she has had 3 months of headache. They are aching in quality, start over her R muslim, then travel over her R parietal scalp. Initially, they were off and on, then got stronger and lasted longer, eventually becoming nearly constant waking her up from sleep. She does not endorse anyphoto or phonophobia (though during our interview struggles to keep eyes open with lights on) or christopher sea. She does note associated tearing but not sure if she has R eye injection. They improve with lying down and with taking [place] and Aleve (which she has left over from a surgery.) She also has somevertigo that has developed in the interim, which she describes as associated with rolling over in bed or sometimes with turning her head. It is typically clockwise in nature. She deniesy vision changes, jaw claudication, dysarthria, fevers, weight loss, rashes, joint pains, dyspnea, n/v/d, urine changes. She was previously evaluated during an admission for possible temporal arteritis and though she was told she did not have temporal arteritis, was discharged with prednisone 5mg daily but has not taken this medication. She was sent to the [place] ED for neuro evaluation by her PMD (Sheldon Santos) today. On arrival to the [facility] ED, she was afebrile with BP 143-192/50s-90s. On initial evaluation, she was noted to have nystagmus with ataxia with finger-nose testing, and an inability to tandem. The following resident and myself did not elicit these findings on exam. WBC 16, Hgb 11.9, BUN 22, Cr 1.48. ESR 30. HCT unremarkable. MRI without stroke or mass lesion. Past Medical History: Past Medical History: Diagnosis Date ??? Diabetes mellitus (CMS/HCC) ??? GERD (gastroesophageal reflux disease) ??? Hypertension Past Surgical History: History reviewed. No pertinent surgical history. Home medications: Current Outpatient Medications Medication ??? amLODIPine (NORVASC) 5 mg tablet ??? betamethasone valerate (VALISONE) 0.1 % cream ??? glimepiride (AMARYL) 1 mg tablet ??? lisinopril (PRINIVIL,ZESTRIL) 20 mg tablet ??? metFORMIN (GLUCOPHAGE) 1,000 mg tablet ??? omeprazole (PriLOSEC) 20 mg capsule Allergies: Allergies Allergen Reactions ??? Tramadol Hives Family History: Mom with cirrhosis, dad with leukemia, brother with a hole in his heart Social History: Former smoker, quit in 2006. No drug/alcohol use. ROS: A full review of systems was reviewed and is otherwise negative except as noted in HPI and here. OBJECTIVE EXAM: BP 143/53 Pulse 89 Temp 36.4 ??C (97.5 ??F) (Oral) Resp 16 Ht 157.5 cm (5' 2 ) SpO2 93% GENERAL EXAMINATION CONSTITUTIONAL: The patient is well appearing/well nourished, pleasant, comfortable. HEENT & NECK: The head is normocephalic and atraumatic. Conjunctiva are clear without injection; the oropharynx is clear. CARDIOVASCULAR: Extremities are warm and well perfused; there is no peripheral edema. RESPIRATORY: Normal WOB on RA NEUROLOGIC EXAM: Mental Status:The patient is alert and oriented to self, [facility], 05/2019. Can give POTUS x 2 and DOTW backward. Attention is intact. Language: The patient has fluent speech and follows commands. Cranial Nerves II-XII: Visual ramirez are full to finger counting. PERRL. Extraocular movements are full and without nystagmus. V1-3 is intact to light touch bilaterally. Face is symmetric Has difficulty with keeping eyes open with the lights on, but eyelid, lip, and tongue strength is strong. There is no dysarthria. Motor: Strength is 5/5 throughout except 4/5 strength in the bilateral iliopsoas muscles. Muscle tone and bulk are normal. There is no pronator drift. Finger tapping is normal bilaterally. Reflexes: Reflexes are 2+ at the biceps, brachioradialis and 1+ at the bilateral patellae. Absent Marie. Sensation: Decreased sensation to pinprick in the bilateral lower extremities in a length-dependentfashion. Coordination: Finger to nose is normal bilaterally. Ambulation:Gait is narrow-based with normal arm swing. Unable to tandem. Hematology Lab History Some values may be hidden. Unless noted otherwise, only the newest values recorded on each date aredisplayed. Labs - Hematology Latest Ref Range 06/12/19 WBC 3.8 - 9.9 K/cumm 16.0 (A) Total Hb, POC 11.9 - 15.5 g/dL 11.9 Hct 35.6 - 45.5 % 38.7 Plt 150 - 400 K/cumm 313 (A) Abnormal value Chem/LFT Lab History Some values may be hidden. Unless noted otherwise, only the newest values recorded on each date aredisplayed. Labs-Chem/LFT Latest Ref Range 06/12/19 Sodium 135 - 145 mmol/L 143 Creatinine 0.60 - 1.10 mg/dL 1.48 (A) (A) Abnormal value Ct Head Wo Contrast Result Date: 06/12/2019 No acute intracranial abnormality. Dictated by: Roddy Rodrigues M.D. The radiology attending physician has personally reviewed this study, and had reviewed and/or edited this written report andagrees with it. Electronically signed by: Gilbert Corey M.D, PHD MRI WO 06/13: No diffusion restriction to suggest acute stroke. No T2/FLAIR hyperintensities to suggest mass lesion. ASSESSMENT AND PLAN Edith Mayo is a 69 y.o. female with PMH significant for DM2, HTN who neurology is seeing in consultation for a R temporal headache. At this time, her symptoms of now daily headache that is confined to one half of her cranium could be either hemicrania continua or daily persistent headache. Without reported photo/phonophobia or nausea, would not consider migrainous. She lacks typical features for GCA including vision changes, jaw claudication. Her ESR is 30, which is also reassuring. The fact that the headache is waking her up from sleep is certainly worrisome, and I was unable to perform a fundoscopic exam due to forceful eye closure during this part of the evaluation, her MRI is otherwise reassuring. She would benefit from neurologic follow-up and initiation of gabapentin. RECOMMENDATIONS: - Start gabapentin 100mg TID, can increase to 300mg TID (increase by 100mg TID every 3 days) as tolerated Patience De La Fuente MD Neurology Resident, PGY-[address] Marinelli who was in agreement with the plan Please call the consult phone [phone] for questions. ING ROOM INSPECTOR documented in this encounter ED Notes * Patrick Betancourt MD - 06/12/2019 7:57 PM CST HPI Chief Complaint Patient presents with ??? Headache HPI 69-year-old female history of diabetes, high blood pressure, GERD who presents with a chief complaint of dizziness and headaches. Patient states for last 2 months she has had constant headache. She states this typically starts and 1 of her temples and radiates towards rest of her head. She is unable to characterize the quality of the headache. There are no particular aggravating or alleviating factors nor is there time of the day the headache is worse. Patient was seen and admitted to the hospital these headaches in the past and was told she may have temporal arteritis, but she was not discharged on high-dose steroids and did not have a temporal artery biopsy. Patient has also not had an MRI at this point. Further discussion with the patient reveals she has also had intermittent dizziness, which she elaborates is likely vertigo as she has sensation that the room is spinning around when she turns her head in certain directions or when she standing up. Review of systems otherwise negative other than noted above. Patient History There are no active problems to display for this patient. Past Medical History: Diagnosis Date ??? Diabetes mellitus (CMS/HCC) ??? GERD (gastroesophageal reflux disease) ??? Hypertension History reviewed. No pertinent surgical history. History reviewed. No pertinent family history. Social History Tobacco Use ??? Smoking status: Not on file Substance Use Topics ??? Alcohol use: Not on file ??? Drug use: Not on file Social History Patient does not qualify to have social determinant information on file (likely too young). Social History Narrative ??? Not on file Review of Systems Review of Systems Constitutional: Negative for diaphoresis, fatigue and fever. All other systems reviewed and are negative. Physical Exam ED Triage Vitals Temp Pulse Resp BP SpO2 06/12/19 1317 06/12/19 1317 06/12/19 1317 06/12/19 1317 06/12/19 1317 37.2 ??C (99 ??F) 116 18 (!) 192/92 95 % Temp src Heart Rate Source Patient Position BP Location FiO2 (%) 06/12/19 1317 06/12/19 1431 -- 06/12/19 1431 -- Oral Monitor Right arm Physical Exam Vitals signs and nursing note reviewed. Constitutional: General: She is not in acute distress. Appearance: She is not ill-appearing, toxic-appearing or diaphoretic. HENT: Head: Normocephalic. Right Ear: External ear normal. Left Ear: External ear normal. Nose: Nose normal. No congestion or rhinorrhea. Mouth/Throat: Mouth: Mucous membranes are moist. Pharynx: Oropharynx is clear. No posterior oropharyngeal erythema. Eyes: General: No scleral icterus. Right eye: No discharge. Left eye: No discharge. Conjunctiva/sclera: Conjunctivae normal. Pupils: Pupils are equal, round, and reactive to light. Comments: Extraocular movements intact in all directions, however the patient has nystagmus in bilateral lateral directions. Neck: Musculoskeletal: Normal range of motion. No neck rigidity. Cardiovascular: Rate and Rhythm: Normal rate. Pulses: Normal pulses. Heart sounds: No murmur. No friction rub. No gallop. Pulmonary: Effort: Pulmonary effort is normal. No respiratory distress. Breath sounds: No stridor. No wheezing, rhonchi or rales. Chest: Chest wall: No tenderness. Abdominal: General: Abdomen is flat. Bowel sounds are normal. There is no distension. Palpations: There is no mass. Tenderness: There is no tenderness. There is no right CVA tenderness, left CVA tenderness, guardingor rebound. Hernia: No hernia is present. Comments: Obese Musculoskeletal: Normal range of motion. General: No swelling, tenderness, deformity or signs of injury. Right lower leg: No edema. Left lower leg: No edema. Skin: General: Skin is warm. Capillary Refill: Capillary refill takes less than 2 seconds. Coloration: Skin is not jaundiced or pale. Findings: No bruising, erythema or rash. Neurological: General: No focal deficit present. Mental Status: She is alert and oriented to person, place, and time. Cranial Nerves: No cranial nerve deficit. Sensory: No sensory deficit. Coordination: Coordination abnormal. Comments: Difficulty with cerebellar testing with upper extremity. Patient did have difficulty withheel to toe gait. No pronator drift. Positive Romberg test. Hints exam was difficult. There is no deviation of gaze. Lateral nystagmus is noted above. Patient had corrective gaze with both directionswith the head impulse test. Very mild weakness with the upper left extremity compared to the right. Bilateral lower extremity exam shows equal strength Psychiatric: Mood and Affect: Mood normal. Behavior: Behavior normal. Thought Content: Thought content normal. Judgment: Judgment normal. MDM 69-year-old female 2 month history of headaches with difficulty with balance. Differential and plan: Primary concern for this patient is a cerebellar stroke given her balance difficulties and abnormalcerebellar testing. Temporal arteritis appears to have been a concern her workup, but is less concerning to my history exam given lack of temporal pain and normal ESR and CRP here. Peripheral vertigocertainly a possibility such as positional vertigo, but the exam is not perfect for this either. Will obtain labs including trop, EKG, CBC, BMP. Head CT was already obtained shows no acute findings. Therefore, the next step will be MRI for her. Disposition: Pending the above, possible admission. [facility] Attending Summary of Care ED Course as of Jun 13 49 Time: 06/12 2333 Comment: Neuro to come see By: Patrick Betancourt MD No diagnosis found. Patrick Betancourt MD Resident 06/13/1946 Cosigned by Wilmar Cuellar MD at 06/14/2019 9:27 AM FITTING ROOM INSPECTOR ING ROOM INSPECTOR ING ROOM INSPECTOR Associated attestation - Wilmar Cuellar MD - 06/14/2019 9:27 AM FITTING ROOM INSPECTOR I have seen and examined the patient on 06/12/2019 . I agree with the findings and plan of care as documented in the resident's note. * Lul Cole RN - 06/12/2019 6:46 PM CST Bed: ED1-10 Expected date: Expected time: Means of arrival: Car Comments: Lul Cloe RN 06/12/19 1846 ING ROOM INSPECTOR * Sharon Oviedo, GUILLERMINA - 06/12/2019 1:15 PM CST Pt to ED with c/o intermittent PRASAD x2 months. Pt was at her PMD today and told to come to ED for neruo eval. Pt is a/ox4, MAEW, no n/t/w at this time; but will have intermittent left arm numbness. PENNY. Pt states that headache started in temples, then will worsen. ING ROOM INSPECTOR documented in this encounter Miscellaneous Notes * ED Re-evaluation Note - Luis Monet MD - 06/12/2019 10:56 PM FITTING ROOM INSPECTOR ED Re-evaluation TRANSITION OF CARE: I, Luis Monet MD, am taking signout from Dr Betancourt (Resident) under supervision of theAttending physician. I have reviewed all pertinent vital signs, allergies, and history available inthe chart. Summary: 69 y.o. female with PMHx diabetes, high blood pressure, GERD here for CC of PRASAD [id number], difficulty with balance. Prior inpatient w/u temporal arteritis, on prednisone. PCP sent here for f/u. Workup: Cerebellar signs on exam. Dispo Plan/Pending: MRI pending c/f cerebellar cva. Will f/u neuro here. Re-evaluation notes: ED Course as of Jun 13 727 Time: 06/12 2333 Comment: Neuro to come see By: Patrick Betancourt MD Time: 06/13 117 Comment: Neuro saw, per their read MRI negative. Low c/f cerebellar infarct on exam. Will give f/u for PRASAD clinic and discharge By: Luis Monet MD Time: 06/13 137 Comment: Neuro recs include: Gabapentin 100 TID. Ambulatory referral placed. Number for neurology [phone], will provide in discharge. By: MD Luis Schwarz MD Resident 06/13/19 0728 ING ROOM INSPECTOR * ED Procedure Note - Patrick Betancourt MD - 06/12/2019 8:33 PM FITTING ROOM INSPECTOR Associated Order(s): ECG 12 lead Procedure ECG 12 lead Date/Time: 06/12/2019 8:33 PM Performed by: Patrick Betancourt MD Authorized by: Patrick Betancourt MD Rate: ECG rate: 104 ECG rate assessment: tachycardic Rhythm: Rhythm: sinus rhythm Ectopy: Ectopy: none QRS: QRS axis: Normal QRS intervals: Normal Conduction: Conduction: normal ST segments: ST segments: Normal T waves: T waves: non-specific and flattening Flattening: V6 Q waves: Q waves: V3 and III Previous ECG: Previous ECG: Unavailable Interpretation: Interpretation: non-specific Recommended Follow-up: Recommended follow up: further workup in the ED Patrick Betancourt MD Resident 06/12/192034 Cosigned by Wilmar Cuellar MD at 06/12/2019 8:37 PM FITTING ROOM INSPECTOR ING ROOM INSPECTOR ING ROOM INSPECTOR Associated attestation - Wilmar Cuellar MD - 06/12/2019 8:37 PM FITTING ROOM INSPECTOR I have personally reviewed the tracing and the resident's interpretation. I agree with the findings. In addition, no prior EKG. documented in this encounter Plan of Treatment Not on file documented as of this encounter Procedures Procedure Name Priority Date/Time Associated Diagnosis Comments MRI BRAIN WO CONTRAST ED 06/12/2019 11:54 PM FITTING ROOM INSPECTOR POCT GLUCOSE DEVICE Routine 06/12/2019 1 0:42 PM FITTING ROOM INSPECTOR ECG 12-LEAD Routine 06/12/2019 8:33 PM FITTING ROOM INSPECTOR TROPONIN I STAT 06/12/2019 3:35 PM FITTING ROOM INSPECTOR ERYTHROCYTE SEDIMENTATION RATE STAT 06/12/2019 3:35 PM FITTING ROOM INSPECTOR CBC WITHOUT DIFFERENTIAL STAT 06/12/2019 3:35 PM FITTING ROOM INSPECTOR CRP (ACUTE PHASE) STAT 06/12/2019 3:3 5 PM FITTING ROOM INSPECTOR BASIC METABOLIC PANEL STAT 06/12/2019 3:35 PM FITTING ROOM INS[address] CT HEAD WO CONTRAST ED 06/12/2019 2 :52 PM FITTING ROOM INSPECTOR documented in this encounter Results * MRI Brain WO Contrast (06/12/2019 11:54 PM FITTING ROOM INSPECTOR) Anatomical Region Laterality Modality Head and Neck N/A Magnetic Resonan ce 06/13/2019 9:07 AM FITTING ROOM INSPECTOR Impressions 06/13/2019 12:53 PM FITTING ROOM INSPECTOR No evidence of acute cerebral infarction. Dictated by: Fahad Harding M.D. The radiology attending physician has personally reviewed this study, and had reviewed and/or edited this written report and agrees with it. Electronically signed by: Beth Franco M.D. Narrative 06/13/2019 12:53 PM FITTING ROOM INSPECTOR EXAMINATION: Magnetic resonance imaging (MRI) of the brain and brainstem without contrast HISTORY: Dizziness, headache. TECHNIQUE: Multiplanar multi-weighted MRI of the brain and brainstem was performed without intravenous contrast using the general brain protocol. COMPARISON: Head CT performed 06/12/2019 FINDINGS: The scalp and calvarium are normal. The superior sagittal sinus demonstrates normal venous flow. The corpus callosum is normal in shape and signal intensity. The posterior fossa is unremarkable. The pituitary and sella are normal. The brainstem and craniocervical junction are unremarkable. Diffusion weighted images reveal no hyperintensities to suggest acute cerebral infarction. The susceptibility weighted sequences reveal no evidence of acute or chronic hemorrhage. The ventricles are normal in size and position without evidence of hydrocephalus. Periventricular white matter FLAIR hyperintensities likely represent sequelae of chronic small vessel ischemic disease. Other than bilateral cataract extractions, the visualized portions of the orbits, paranasal sinuses, and mastoids appear normal. Normal flow voids are demonstrated in the carotid arteries and basilar artery. Procedure Note Beth Franco MD - 06/13/2019 EXAMINATION: Magnetic resonance imaging (MRI) of the brain and brainstem without contrast HISTORY: Dizziness, headache. TECHNIQUE: Multiplanar multi-weighted MRI of the brain and brainstem was performed without intravenous contrast using the general brain protocol. COMPARISON: Head CT performed 06/12/2019 FINDINGS: The scalp and calvarium are normal. The superior sagittal sinus demonstrates normal venous flow. The corpus callosum is normal in shape and signal intensity. The posterior fossa is unremarkable. The pituitary and sella are normal. The brainstem and craniocervical junction are unremarkable. Diffusion weighted images reveal no hyperintensities to suggest acute cerebral infarction. The susceptibility weighted sequences reveal no evidence of acute or chronic hemorrhage. The ventricles are normal in size and position without evidence of hydrocephalus. Periventricular white matter FLAIR hyperintensities likely represent sequelae of chronic small vessel ischemic disease. Other than bilateral cataract extractions, the visualized portions of the orbits, paranasal sinuses, and mastoids appear normal. Normal flow voids are demonstrated in the carotid arteries and basilar artery. IMPRESSION: No evidence of acute cerebral infarction. Dictated by: Fahad Harding M.D. The radiology attending physician has personally reviewed this study, and had reviewed and/or edited this written report and agrees with it. Electronically signed by: Beth Franco M.D. us Patrick Betancourt MD IMG MRI PROCEDURES Fin al Result * POCT glucose (06/12/2019 10:42 PM FITTING ROOM INSPECTOR) [facility] Glucose, POC 139 70 - 199 mg/dL [facility] Blood specimen (specimen) 06/12/2019 10:42 PM FITTING ROOM INSPECTOR 06/12/2019 10:42 PM FITTING ROOM INSPECTOR us Notinfile Unknown LAB POCT ORDERABLES - DEVICE F inal Result [facility] Department [place] [address] * ECG 12-LEAD (06/12/2019 8:33 PM FITTING ROOM INSPECTOR) Narrative [facility] - 06/12/2019 8:33 PM FITTING ROOM INSPECTOR Patrick Betancourt MD ? 06/12/2019 ??8:35 PM ECG 12 lead Date/Time: 06/12/2019 8:33 PM Performed by: Patrick Betancourt MD Authorized by: Patrick Betancourt MD Rate: ??ECG rate: ??104 ??ECG rate assessment: tachycardic ?? Rhythm: ??Rhythm: sinus rhythm ?? Ectopy: ??Ectopy: none ?? QRS: ??QRS axis: ??Normal ??QRS intervals: ??Normal Conduction: ??Conduction: normal ?? ST segments: ??ST segments: ??Normal T waves: ??T waves: non-specific and flattening ?Flattening: ??V6 Q waves: ??Q waves: ??V3 and III Previous ECG: ??Previous ECG: ??Unavailable Interpretation: ??Interpretation: non-specific ?? Recommended Follow-up: ??Recommended follow up: further workup in the ED ?? us Patrick Betancourt MD ECG ORDERABLES Final Result [facility] * Troponin I (06/12/2019 3:35 PM FITTING ROOM INSPECTOR) Troponin I <0.03 0.00 - 0.03 ng/mL [facility] Comment: Interpretive Data: Normal plasma Troponin I concentrations can reach 1 ng/mL in the first two weeks of life and slowly decrease to adult levels (<0.03 ng/mL) by the age of 3 months. > 3 months ??<0.03 ng/mL > or = 18 years Serial determinations are recommended for the diagnosis of myocardial infarction. ??Temporal rise and fall are consistent with myocardial infarction when at least one value is above the 99th percentile upper reference limit for Troponin assay. References: 1. Clin Chem 2013;59:[id number] 2. Journal of the [place] [employer] 2012;60:1581-98 Current Interpretive Data Last Revised Date: 2018. Blood specimen (specimen) 06/12/2019 3:35 PM FITTING ROOM INSPECTOR 06/12/2019 4:08 PM FITTING ROOM INSPECTOR us Notinfile Unknown LAB BLOOD ORDERABLES Final Res ult Performing Organization Address [facility] Co de Phone Number [facility] [place] [address] * Erythrocyte sedimentation rate (06/12/2019 3:35 PM FITTING ROOM INSPECTOR) [facility] Erythrocyte sedimentation rate 30 1 - 30 mm/hr [facility] Blood specimen (specimen) 06/12/2019 3:35 PM FITTING ROOM INSPECTOR 06/12/2019 3:54 PM FITTING ROOM INSPECTOR us Notinfile Unknown LAB BLOOD ORDERABLES Final Res ult Performing Organization Address [facility] Co de Phone Number [facility] [place] [address] * CRP (acute phase) (06/12/2019 3:35 PM FITTING ROOM INSPECTOR) [facility] CRP 8.6 <=10.0 mg/L [facility] Blood specimen (specimen) 06/12/2019 3:35 PM FITTING ROOM INSPECTOR 06/12/2019 3:54 PM FITTING ROOM INSPECTOR Notinfile Unknown LAB BLOOD ORDERABLES Final Res ult Performing Organization Address [facility] Co de Phone Number [facility] [place] [address] * (ABNORMAL) Basic metabolic panel (06/12/2019 3:35 PM FITTING ROOM INSPECTOR) [facility] Sodium 143 135 - 145 mmol/L [facility] Potassium, pl 4.0 3.3 - 4.9 mmol/L [facility] Chloride 103 97 - 110 mmol/L [facility] CO2 28 22 - 32 mmol/L [facility] Anion gap 12 2 - 15 mmol/L [facility] BUN 22 8 - 25 mg/dL [facility] Creatinine 1.48(H) 0.60 - 1.10 mg/dL [facility] Glucose 203(H) 70 - 199 mg/dL [facility] Comment: Interpretive Data Fasting glucose >/= 126 mg/dl is diagnostic for diabetes. ?? Fasting is defined as no caloric intake for at least 8 hours. Fasting glucose between 100 mg/dl to 125 mg/dl is diagnostic of prediabetes. In a patient with classic symptoms of hyperglycemia or hyperglycemic crisis, a random glucose >/= 200 mg/dl is diagnostic for diabetes. In the absence of unequivocal hyperglycemia, results should be confirmed by repeat testing. The classification and Diagnosis of Diabetes Diabetes Care 2017;40 (Suppl. 1):S11. Current interpretive data was last revised 2017. Calcium 9.7 8.5 - 10.3 mg/dL [facility] Blood specimen (specimen) 06/12/2019 3:35 PM FITTING ROOM INSPECTOR 06/12/2019 3:54 PM FITTING ROOM INSPECTOR Narrative [facility] - 06/12/2019 4:38 PM FITTING ROOM INSPECTOR THE COLLECTION LOCATION IS us Aldo Sage MD LAB BLOOD ORDERABLES Final R esult [facility] Department [place] [address] * (ABNORMAL) CBC without differential (06/12/2019 3:35 PM FITTING ROOM INSPECTOR) WBC 16.0(H) 3.8 - 9.9 K/cumm [facility] Hgb 11.9 11.9 - 15.5 g/dL [facility] Hct 38.7 35.6 - 45.5 % [facility] Plt 313 150 - 400 K/cumm [facility] MPV 9.3 9.1 - 12.3 fL [facility] RBC 4.56 3.90 - 5.20 M/cumm [facility] MCV 84.9 81.3 - 96.4 fL [facility] MCH 26.1(L) 27.1 - 33.3 pg [facility] MCHC 30.7(L) 32.3 - 35.7 g/dL [facility] RDW CV 14.5 11.1 - 14.9 % [facility] RDW SD 44.3 35.7 - 48.1 fL [facility] NRBC abs 0.00 0.00 - 0.01 K/cumm [facility] Blood specimen (specimen) 06/12/2019 3:35 PM FITTING ROOM INSPECTOR 06/12/2019 3:54 PM FITTING ROOM INSPECTOR Narrative [facility] - 06/12/2019 4:17 PM FITTING ROOM INSPECTOR THE BJ COLLECTION LOCATION IS us Aldo Sage MD LAB BLOOD ORDERABLES Final R esult [facility] [place] [address] * CT Head WO Contrast (06/12/2019 2:52 PM FITTING ROOM INSPECTOR) Anatomical Region Laterality Modality Head and Neck N/A Computed Tomogra phy 06/12/2019 3:01 PM FITTING ROOM INSPECTOR Impressions 06/12/2019 3:07 PM FITTING ROOM INSPECTOR No acute intracranial abnormality. Dictated by: Roddy Rodrigues M.D. The radiology attending physician has personally reviewed this study, and had reviewed and/or edited this written report and agrees with it. Electronically signed by: Gilbert Corey M.D, PHD Narrative 06/12/2019 3:07 PM FITTING ROOM INSPECTOR EXAMINATION: CT head without contrast HISTORY: Headache, numbness. TECHNIQUE: Noncontrast CT of the brain was performed with images acquired from skull base to vertex. COMPARISON: None available. FINDINGS: Topogram demonstrates no lytic lesions or fractures. There is no acute intracranial hemorrhage. Ventricles are of normal size and morphology. No mass effect or midline shift is present. The kowalski-white matter differentiation is normal. The visualized portions of the orbits are normal. The visualized portions of the mastoids are normal. The visualized portions of the paranasal sinuses are normal. No fractures are identified. Procedure Note Gilbert Corey MD PhD - 06/12/2019 EXAMINATION: CT head without contrast HISTORY: Headache, numbness. TECHNIQUE: Noncontrast CT of the brain was performed with images acquired from skull base to vertex. COMPARISON: None available. FINDINGS: Topogram demonstrates no lytic lesions or fractures. There is no acute intracranial hemorrhage. Ventricles are of normal size and morphology. No mass effect or midline shift is present. The kowalski-white matter differentiation is normal. The visualized portions of the orbits are normal. The visualized portions of the mastoids are normal. The visualized portions of the paranasal sinuses are normal. No fractures are identified. IMPRESSION: No acute intracranial abnormality. Dictated by: Roddy Rodrigues M.D. The radiology attending physician has personally reviewed this study, and had reviewed and/or edited this written report and agrees with it. Electronically signed by: Gilbert Corey M.D, PHD Aldo Sage MD IMG CT PROCEDURES Final Resu lt documented in this encounter Visit Diagnoses Diagnosis Headache syndrome- Primary documented in this encounter Administered Medications Inactive Administered Medications - up to 3 most recent administrations Medication Order MAR Action Action Date Dose Rate Site diphenhydrAMINE (BENADRYL) tab/cap 25 mg 25 mg, oral, Once, On Tue06/12/19 at 194, For 1 dose Given 06/12/2019 8:10 PM FITTING ROOM INSPECTOR 25 mg LORazepam (ATIVAN) injection 1 mg 1 mg, intravenous, Once, On Tue06/12/19 at 1941, For 1 dose, Prior to taking her to CT For IV administration, dilute with equal volume of 0.9% sodium chloride. Do not exceed a rate of 2 mg/minute Given 06/12/2019 11:27 PM FITTING ROOM INSPECTOR 1 mg prochlorperazine (COMPAZINE) injection 5 mg 5 mg, intravenous, Administer over 2 Minutes, Once, On Tue06/12/19 at 194, For 1 dose Given 06/12/2019 8:10 PM FITTING ROOM INSPECTOR 5 mg sodium chloride 0.9% bolus 1,000 mL 1,000 mL, intravenous, Once, On Tue06/12/19 at 194, For 1 dose New Bag 06/12/2019 8:10 PM FITTING ROOM INSPECTOR 1,000 mL documented in this encounter Historical Medications * This list may reflect changes made after this encounter. omeprazole (PriLOSEC) 20 mg capsule TK 1 C PO BID 30 MIN TO 1 HOUR AC 2 03/29/2019 betamethasone valerate (VALISONE) 0.1 % cream Apply topically 2 times daily lisinopril (PRINIVIL,ZESTRI L) 20 mg tablet Take 20 mg by mouth daily amLODIPine (NORVASC) 5 mg tablet Take 5 mg by mouth daily 05/22/2019 glimepiride (AMARYL) 1 mg tablet TK 1 T PO QD 1 03/29/2019 metFORMIN (GLUCOPHAGE) 1,000 mg tablet Take 1,000 mg by mouth daily added in this encounter Active and Recently Administered Medications Times are shown in FITTING ROOM INSPECTOR. Scheduled Medication Order 06/11/2019 06/12/2019 06/13/2019 diphenhydrAMINE (BENADRYL) tab/cap 25 mg (COMPLETED) 25 mg, oral, Once, On Tue06/12/19 at 1945, For 1 dose 2009 (Given - Provider: Yuniel Perera, GUILLERMINA) LORazepam (ATIVAN) injection 1 mg (COMPLETED) 1 mg, intravenous, Once, On Tue06/12/19 at 1941, For 1 dose, Prior to taking her to CT For IV administration, dilute with equal volume of 0.9% sodium chloride. Do not exceed a rate of 2 mg/minute 2326 (Given - Provider: Alyson Richards, GUILLERMINA - Comment: prior to MRI) prochlorperazine (COMPAZINE) injection 5 mg (COMPLETED) 5 mg, intravenous, Administer over 2 Minutes, Once, On Tue06/12/19 at 1945, For 1 dose 2009 (Given - Provider: Yuniel Perera, GUILLERMINA) sodium chloride 0.9% bolus 1,000 mL (COMPLETED) 1,000 mL, intravenous, Once, On Tue06/12/19 at 194, For 1 dose 2009 (New Bag - Provider: Javon Perera RN)2134 (Stopped - Provider: Linda Richards, GUILLERMINA) documented in this encounter Orders Lab Orders Without Results Count Last Ordered D ate First Ordered Date POCT GLUCOSE DEVICE 2 06/12/2019 TROPONIN I 1 06/12/2019 Consult Count Last Ordered Date First Orde red Date IP CONSULT TO NEUROLOGY 1 06/12/2019 ADT Patient Update Count Last Ordered Date Firs t Ordered Date PLACE IN ED OBSERVATION 1 06/12/2019 documented in this encounter Care Teams Circular Gang Saw Operator Relationship Specialty Start Date End Date Sheldon Santos MD PCP - General 03/29/17 03/10/20 documented as of this encounter
--- OUTSIDE RECORDS SUMMARY | 2024-07-02 20:31 | XMS_ITS | Encounter Summary ---
Author Organization [facility] Address [address] [address] Care Team Providers Care Smelter Charger Name Role Phone Wiley Causey MD Primary Care Provider [phone] Reason for Visit * Reason Comments Follow Up Encounter Details Date Type Department Care Team ([facility] st Contact Info) Description 05/23/2023 1:15 PM MANUSCRIPT READER Office Visit [facility] Oncology and Hematology - [place] [address] [place] [address] [address] [place] [address] Gabo Jiang MD [address] [facility] [address] [place] [address] Chronic anemia (Primary Dx) Social History Tobacco Use Types Packs/Day Years Used Date Smoking Tobacco: Former Cigarettes 2 25 1 2 - 2006 Smokeless Tobacco: Never Tobacco Cessation:Counseling Given: Not Answered Alcohol Use Standard Drinks/Week Comments Yes 0 (1 standard drink = 0.6 oz pur e alcohol) Sex and Gender Information Value Date Recorded Sex Assigned at Not on file Gender Identity Not on file Sexual Orientation Not on file documented as of this encounter Last Filed Vital Signs Vital Sign Reading Time Taken Comments Blood Pressure 147/66 05/23/2023 1:15 PM MANUSCRIPT READER Pulse 96 05/23/2023 1:12 PM MANUSCRIPT READER Temperature 36.9 ??C (98.5 ??F) 05/23/2023 1:12 PM CS T Respiratory Rate 10 05/23/2023 1:12 PM MANUSCRIPT READER Oxygen Saturation 97% 05/23/2023 1:12 PM MANUSCRIPT READER Inhaled Oxygen Concentration - - Weight 89.4 kg (197 lb) 05/23/2023 1:12 PM MANUSCRIPT READER Height - - Body Mass Index 36.03 04/20/2022 2:54 PM CDT documented in this encounter Progress Notes * Gabo Jiang MD - 05/23/2023 1:51 PM CST HEMATOLOGY / ONCOLOGY PROGRESS NOTE Patient Identification: Name: Edith Mayo Age: 73 y.o. Sex: female : 1950 DIAGNOSIS Multifactorial anemia Vitamin B12 deficiency Chronic kidney stage III disease CURRENT TREATMENT Monthly B12 injections at home started in November 2022 Slow Fe twice a day TREATMENT HISTORY Biweekly vitamin B12 injection started on December 30, 2020. Patient received last monthly B12 injection on November 24, 2021. Further injections were discontinued due to insurance. SUBJECTIVE Patient came to the office for follow-up visit. He denies any excessive tiredness and fatigue. She has some left knee arthralgia. Denies any fever chills. No night sweats. No other new complaints.. Review of system Constitutional: denies fevers, sweats, denies any tiredness and fatigue HEENT: denies sinus congestion, hearing or vision problems Respiratory: denies cough, dyspnea, wheeze Cardiovascular: denies chest pain, exertional chest pressure/discomfort, nausea, syncope, shortnessof breath GI: denies constipation, diarrhea, dsyphagia, reflux symptoms, vomiting, melena : denies dysuria, frequency, incontinence, urgency Integumentary system: no lymphadenopathy, sweats, flushing Musculoskeletal: denies: myalgia, complain of left knee arthralgia Neurological: denies blurry or disturbed vision, numbness/weakness, dizziness Skin: No lumps, bumps or rashes. 12 point review of system was reviewed Objective: Vital signs in last 24 hours: As per nursing note Exam: General appearance: alert, cooperative, no distress, appears stated age Head: normocephalic, without obvious abnormality, atraumatic Eyes: conjunctivae/corneas clear, EOM's intact Ears: normal external ear canals AU Nose: Nares normal. Septum midline. Mucosa normal. No drainage or sinus tenderness Throat: Lips, mucosa, and tongue normal. Teeth and gums normal Neck: supple, symmetrical, trachea midline. Lungs: clear to auscultation bilaterally Heart: regular rate and rhythm, S1, S2 normal, no murmur, click, rub or gallop Abdomen: soft, non-tender. Bowel sounds normal. No masses, No organomegaly Extremities: extremities normal, atraumatic, no cyanosis or edema Skin: Skin color, texture, turgor normal. No rashes or lesions Lymph nodes: No lymphadenopathy Neuro: No obvious focal deficit Exam as above PATH LABS Labs from December 03, 2020 showed WBC 12.6 hemoglobin 10.7 platelet 231,000 vitamin B12 241 iron 42 saturation 11% ferritin 19.7 creatinine 1.4 Labs from February 16 showed hemoglobin 10.6 WBC 11.1 platelet 222,000 vitamin B12 837 iron 57 saturation 17% ferritin 44 Labs from May 19 showed hemoglobin 10.7 iron 55 saturation 16% ferritin 54 vitamin B12 380 Labs from August 04 showed WBC 10.6 hemoglobin 10.4 MCV 93.7 platelet 183,000 creatinine 2.3 Labs from October 27 showed WBC 9.9 hemoglobin 9.9 platelet 185,000 creatinine 2.1 Labs from January 13 showed WBC 12.9 hemoglobin 10.1 platelet 227,000 creatinine 2.0 iron 47 iron saturation 14% vitamin B12 415 Labs from April 13 showed iron 42 saturation 11% ferritin 37 creatinine 1.9 B12 304 hemoglobin 10.1 MCV 87.6 platelet 206 white blood cell 11.4 Labs from July 15 showed iron 37 iron saturation 10% ferritin 22.9 vitamin B12 900 WBC 10.4 hemoglobin 10.6 platelet 207,000 Labs from November 15 showed WBC 10.9 hemoglobin 11 platelet 199,000 creatinine 2.0 iron 38 saturation 11% vitamin B12 587 Labs from May 17 showed creatinine 2.0 B12 693 iron 49 saturation 13% ferritin 29 hemoglobin 12WBC 12.5 platelet 234,000 neutrophils 72% Vercyte 15.9% Assessment: Plan: Patient Active Problem List Diagnosis Date Noted Stage 3b chronic kidney disease 12/03/2020 Chronic anemia 12/03/2020 Other dietary vitamin B12 deficiency anemia 12/03/2020 Multifactorial anemia. This is secondary to anemia of chronic kidney stage III disease, iron deficiency and vitamin B12 deficiency. Labs noted. Hemoglobin normal. Continue oral iron twice a day with vitamin C. No need for Procrit. Follow-up in 6 months. Vitamin B12 deficiency. B12 levels normal on monthly B12 injections at home. Leukocytosis. Likely reactive secondary to knee arthralgia. We will continue to observe CKD stage III. Stable creatinine. Type 2 diabetes. She is on Trulicity and Amaryl. This has been managed by primary care physician. 05/23/2023 Gabo Jiang MD SCRIPT READER documented in this encounter Plan of Treatment Upcoming Encounters Date Type Department Care Team (Late st Contact Info) Description 12/26/2024 1:00 PM CDT Office Visit [facility] Oncology and Hematology - [place] [address] [facility] [address] [place] [address] Gabo Jiang MD [address] [facility] [address] [place] [address] documented as of this encounter Visit Diagnoses Diagnosis Chronic anemia- Primary Anemia, unspecified documented in this encounter Care Teams Smelter Charger Relationship Specialty Start Date End Date Wiley Causey MD PCP - General Family Practice 08/04/21 documented as of this encounter
--- OUTSIDE RECORDS SUMMARY | 2024-07-02 20:31 | XMS_ITS | Encounter Summary ---
Author Organization [facility] Healthcare Address [address] [place] [address] Care Team Providers Care Pattern Hand Name Role Phone Sheldon Santos MD Primary Care Provide r Encounter Details Date Type Department Care Team (Latest Contact Info) Description 06/12/2019 2:22 PM CONTENT ARCHITECT - 06/12/2019 6:45 PM CONTENT ARCHITECT Hospital Encounter [facility] Radiology [address] [place] [address] Aldo Sage MD [address] [place] [address] Discharge Disposition: Discharge to home or self care Social History Tobacco Use Types Packs/Day Years Used Date Smoking Tobacco: Never Assessed Comments Unknown Sex and Gender Information Value Date Recorded Sex Assigned at Not on file Legal Sex Female 8:44 PM CONTENT ARCHITECT Gender Identity Not on file Sexual Orientation Not on file documented as of this encounter Medications at [...] 2 03/29/2019 documented as of this encounter Discharge Disposition Disposition Code Departure Means Destination Discharge to home or self care documented in this encounter Plan of Treatment Not on file documented as of this encounter Procedures Procedure Name Priority Date/Time Associated Diagnosis Comments CT HEAD WO CONTRAST ED 06/12/2019 2 :52 PM CONTENT ARCHITECT documented in this encounter Results * CT Head WO Contrast (06/12/2019 2:52 PM CONTENT ARCHITECT) Anatomical Region Laterality Modality Head and Neck N/A Computed Tomogra phy 06/12/2019 3:01 PM CONTENT ARCHITECT Impressions 06/12/2019 3:07 PM CONTENT ARCHITECT No acute intracranial abnormality. Dictated by: Roddy Rodrigues M.D. The radiology attending physician has personally reviewed this study, and had reviewed and/or edited this written report and agrees with it. Electronically signed by: Gilbert Corey M.D, PHD Narrative 06/12/2019 3:07 PM CONTENT ARCHITECT EXAMINATION: CT head without contrast HISTORY: Headache, [...] lt documented in this encounter Visit Diagnoses Not on filedocumented in this encounter Care Teams Pattern Hand Relationship Specialty Start Date End Date Sheldon Santos MD PCP - General 03/29/17 03/10/20 documented as of this encounter
--- OUTSIDE RECORDS SUMMARY | 2024-07-02 20:31 | XMS_ITS | Encounter Summary ---
Author Organization [facility] Address [address] [place] [address] Care Team Providers Care Rn Pediatric Icu Name Role Phone Wiley Causey MD Primary Care Provider [phone] Encounter Details Date Type Department Care Team ([facility] Contact Info) Description 06/19/2024 Orders Only [facility] Oncology and Hematology [facility] [address] [place] [address] Gabo Jiang MD [facility] [address] [place] [address] Social History Tobacco Use Types Packs/Day Years [...] Description 12/26/2024 1:00 PM CDT Office Visit [facility] Oncology and Hematology - [place] [address] [place] [address] Gabo Jiang MD [facility] [address] [place] [address] documented as of this encounter Procedures Procedure Name Priority Date/Time Associated Diagnosis Comments BASIC METABOLIC PANEL Routine 06/18/2024 12:48 PM VENEER JOINTER CBC WITH DIFFERENTIAL Routine 06/18/2024 10:45 AM VENEER JOINTER documented in this encounter Results * BASIC METABOLIC PANEL (06/18/2024 12:48 PM VENEER JOINTER) Blood Gabo Jiang MD CHEMISTRY ORDERABLES * CBC WITH DIFFERENTIAL (06/18/2024 10:45 AM VENEER JOINTER) Blood Gabo Jiang MD HEMATOLOGY ORDERABLE S documented in this encounter Visit Diagnoses Not on filedocumented in this encounter Care Teams Rn Pediatric Icu Relationship Specialty Start Date End Date Wiley Causey MD PCP - General Family Practice 08/04/21 documented as of this encounter
--- OUTSIDE RECORDS SUMMARY | 2024-07-02 20:31 | XMS_ITS | Encounter Summary ---
Author Organization [facility] Healthcare Address [address] [place] [address] Care Team Providers Care Director Of Retail Name Role Phone Unavailable Primary Care Provider Unavailabl e Encounter Details Date Type Department Care Team (Latest Contact Info) Description 05/23/2015 8:13 AM ANODE REBUILDER - 06/20/2015 11:59 PM ANODE REBUILDER Hospital Encounter [facility] Darrell Gates MD [address] [place] [id number] Radiculopathy of cervical region; Impingement syndrome of shoulder Social History Tobacco Use Types Packs/Day Years Used Date Smoking Tobacco: Never Assessed Comments Unknown Sex and Gender Information Value Date Recorded Sex Assigned at Not on file Legal Sex Female 8:44 PM ANODE REBUILDER Gender Identity Not on file Sexual Orientation Not on file documented as of this encounter Plan of Treatment Not on file documented as of this encounter Visit Diagnoses Diagnosis Radiculopathy of cervical region Impingement syndrome of shoulder Other affections of shoulder region, not elsewhere classified documented in this encounter
--- OUTSIDE RECORDS SUMMARY | 2024-07-02 20:31 | XMS_ITS | Encounter Summary ---
Author Organization [facility] Address [address] [place] [address] Care Team Providers Care Plant Accountant Name Role Phone Wiley Causey MD Primary Care Provider [phone] [phone] Reason for Visit * Reason Onset Date Comments Medication Refill 09/21/2023 Encounter Details Date Type Department Care Team ([facility] Contact Info) Description 09/21/2023 Refill [facility] Oncology and Hematology - [place] [address] [place] [address] Chloe Carrasco FNP [address] [place] [address] Other dietary vitamin B12 deficiency anemia Social History Tobacco Use Types Packs/Day [...] Description 12/26/2024 1:00 PM CDT Office Visit [facility] Oncology and Hematology - [place] [address] [place] [address] Gabo Jiang MD 2[address] [facility] 100 [place] [address] documented as of this encounter Visit Diagnoses Diagnosis Other dietary vitamin B12 deficiency anemia documented in this encounter Care Teams Plant Accountant Relationship Specialty Start Date End Date Wiley Causey MD PCP - General Family Practice 08/04/21 documented as of this encounter
--- OUTSIDE RECORDS SUMMARY | 2024-07-02 20:31 | XMS_ITS | Encounter Summary ---
Author Organization [facility] Address [address] [place] [address] Care Team Providers Care Tax Clerk Name Role Phone Wiley Causey MD Primary Care Provider [phone] [phone] Encounter Details Date Type Department Care Team (Late st Contact Info) Description 01/03/2024 External Device Data ST[place] ABSTRACTION Provider, Abstract NO ADDRESS ON FILE Social History Tobacco Use Types Packs/Day Years [...] Description 12/26/2024 1:00 PM CDT Office Visit [facility] Oncology and Hematology - [place] [address] [place] [address] [address] [place] [address] [place] [address] [place] [address] [address] [place] [address] documented as of this encounter Visit Diagnoses Not on filedocumented in this encounter Care Teams Tax Clerk Relationship Specialty Start Date End Date Wiley Causey MD PCP - General Family Practice 08/04/21 documented as of this encounter
--- OUTSIDE RECORDS SUMMARY | 2024-07-02 20:31 | XMS_ITS | Encounter Summary ---
Author Organization [facility] Address [address] [place] [address] Care Team Providers Care Food Consultant Name Role Phone Wiley Causey MD Primary Care Provider [phone] [phone] Encounter Details Date Type Department Care Team (Late st Contact Info) Description 03/20/2024 External Device Data STL ABSTRACTION Provider, Abstract [...] Description 12/26/2024 1:00 PM CDT Office Visit [facility] Oncology and Hematology - [place] [address] [place] [address] [address] [place] [address] [place] [address] [place] [address] [address] [place] [address] documented as of this encounter Visit Diagnoses Not on filedocumented in this encounter Care Teams Food Consultant Relationship Specialty Start Date End Date Wiley Causey MD PCP - General Family Practice 08/04/21 documented as of this encounter
--- OUTSIDE RECORDS SUMMARY | 2024-07-02 20:31 | XMS_ITS | Encounter Summary ---
Author Organization [facility] Address [address] [place] [address] Care Team Providers Care Ironing Machine Operator Name Role Phone Wiley Causey MD Primary Care Provider [phone] [phone] Encounter Details Date Type Department Care Team (Late st Contact Info) Description 06/01/2023 External Device Data STL ABSTRACTION Provider, Abstract [...] Description 12/26/2024 1:00 PM CDT Office Visit [facility] Oncology and Hematology - [place] [address] [place] [address] [address] [place] [address] [place] [address] [place] [address] [address] [place] [address] documented as of this encounter Visit Diagnoses Not on filedocumented in this encounter Care Teams Ironing Machine Operator Relationship Specialty Start Date End Date Wiley Causey MD PCP - General Family Practice 08/04/21 documented as of this encounter
--- OUTSIDE RECORDS SUMMARY | 2024-07-02 20:31 | XMS_ITS | Encounter Summary ---
Author Organization [facility] Address [address] [place] [address] Care Team Providers Care Stringed Instrument Repairer Name Role Phone Wiley Causey MD Primary Care Provider [phone] [phone] Reason for Visit * Reason Comments Follow Up Encounter Details Date Type Department Care Team ([facility] st Contact Info) Description 11/23/2023 1:15 PM CDT Office Visit [facility] Oncology and Hematology - [place] [address] [place] [address] [address] [place] [address] Gabo Jiang MD 2[address] [facility] [address] [place] [address] Chronic anemia (Primary Dx) Social History Tobacco Use Types Packs/Day Years Used Date Smoking Tobacco: Former Cigarettes 2 25 1 - 2006 Smokeless Tobacco: Never Tobacco Cessation:Counseling [...] Sign Reading Time Taken Comments Blood Pressure 158/73 11/23/2023 1:16 PM CDT Pulse 98 11/23/2023 1:14 PM CDT Temperature 35.7 ??C (96.3 ??F) 11/23/2023 1:14 PM CD T Respiratory Rate 14 11/23/2023 1:14 PM CDT Oxygen Saturation 94% 11/23/2023 1:14 PM CDT Inhaled Oxygen Concentration - - Weight 95.3 kg (210 lb) 11/23/2023 1:14 PM CDT Height - - Body Mass Index 38.41 04/20/2022 2:54 PM CDT documented in this encounter Progress Notes * Gabo Jiang MD - 11/23/2023 2:13 PM CDT HEMATOLOGY / ONCOLOGY PROGRESS NOTE Patient Identification: [...] came to the office for follow-up visit. She denies any excessive tiredness and fatigue. No bleeding and bruising. Weight and appetite stable. No chest pain or shortness of breath. No other new complaints. Review of system Constitutional: denies fevers, sweats, [...] 12.5 platelet 234,000 neutrophils 72% Vercyte 15.9% Labs from November 06 showed creatinine 1.8 iron 44 saturation 12 ferritin 19.4 hemoglobin 11.7 WBC 10.9 platelet 234,000 Assessment: Plan: Patient Active Problem List Diagnosis Date Noted Stage 3b chronic kidney disease 12/03/2020 Chronic anemia 12/03/2020 Other dietary vitamin B12 deficiency anemia 12/03/2020 Multifactorial anemia. This is secondary to anemia of chronic kidney stage III disease, iron deficiency and vitamin B12 deficiency. Patient is intolerant to oral iron. Labs noted. Hemoglobin slightly down and iron studies are consistent with anemia of chronic kidney disease. Continue vitamin C. No need for Procrit. Follow-up in 6 months. Vitamin B12 deficiency. B12 level stable. Continue monthly B12 injections at home. Reactive leukocytosis due to arthralgia. Stable. Chronic kidney stage III disease. She will continue to follow-up with the burner tender. Creatinine stable. Type 2 diabetes. This has been managed by the primary care physician. TOBACCO COUNSELING She is not a tobacco/nicotine user. 11/23/2023 Gabo Jiang MD documented in this encounter Plan of Treatment Upcoming Encounters Date Type Department Care Team (Late st Contact Info) Description 12/26/2024 1:00 PM CDT Office Visit [facility] Oncology and Hematology [facility] [address] [facility] 200 [place] [address] Gabo Jiang MD [address] [facility] [address] [place] [address] Scheduled Orders Name Type Priority Associated Diagnoses Orde r Schedule CBC WITH DIFFERENTIAL Lab Stat Chronic anemia Expected: 05/25/2024, Expires: 11/22/2024 BASIC METABOLIC PANEL Lab Stat Chronic anemia Expected: 05/25/2024, Expires: 11/22/2024 FERRITIN Lab Routine Chronic anemia Expected: 05/25/2024, Expires: 11/22/2024 IRON, TIBC, AND PERCENT SATURATION Lab Routine Chronic anemia Expected: 05/25/2024, Expires: 11/22/2024 VITAMIN B12 AND FOLATE Lab Routine Chronic anemia Expected: 05/25/2024, Expires: 11/22/2024 documented as of this encounter Visit Diagnoses Diagnosis Chronic anemia- Primary Anemia, unspecified documented in this encounter Care Teams Stringed Instrument Repairer Relationship Specialty Start Date End Date Wiley Causey MD PCP - General Family Practice 08/04/21 documented as of this encounter
--- OUTSIDE RECORDS SUMMARY | 2024-07-02 20:31 | XMS_ITS | Encounter Summary ---
Author Organization [facility] Address [address] [place] [address] Care Team Providers Care Datawarehouse Developer Name Role Phone Wiley Causey MD Primary Care Provider [phone] [phone] Reason for Visit * Reason Comments Follow Up Encounter Details Date Type Department Care Team ([facility] st Contact Info) Description 11/18/2022 1:00 PM CDT Office Visit [facility] Oncology and Hematology - [place] [address] [place] [address] [address] [place] [address] Gabo Jiang MD [address] [facility] [address] [place] [address] Chronic anemia (Primary Dx) Social History Tobacco Use Types Packs/Day Years Used Date Smoking Tobacco: Former Cigarettes 2 1 - 2006 Smokeless Tobacco: Never Tobacco [...] suspected to have Coronavirus/COVID-19? No / Unsure 11/18/2022 12:50 PM CDT documented as of this encounter Last Filed Vital Signs Vital Sign Reading Time Taken Comments Blood Pressure 132/63 11/18/2022 12:57 PM CDT Pulse 91 11/18/2022 12:57 PM CDT Temperature 36.8 ??C (98.3 ??F) 11/18/2022 12:57 PM C DT Respiratory Rate 12 11/18/2022 12:57 PM CDT Oxygen Saturation 99% 11/18/2022 12:57 PM CDT Inhaled Oxygen Concentration - - Weight 88.7 kg (195 lb 9.6 oz) 11/18/2022 12:57 PM CDT Height - - Body Mass Index 35.78 04/20/2022 2:54 PM CDT documented in this encounter Progress Notes * Gabo Jiang MD - 11/18/2022 3:17 PM CDT HEMATOLOGY / ONCOLOGY PROGRESS NOTE Patient Identification: Name: Edith Mayo Age: 72 y.o. Sex: female : 1950 DIAGNOSIS Multifactorial anemia Vitamin B12 deficiency Chronic kidney stage III disease CURRENT TREATMENT B12 1 mcg daily Slow Fe twice a day TREATMENT HISTORY Biweekly vitamin B12 injection started on December 30, 2020. Patient received last monthly B12 injection on November 24, 2021. Further injections were discontinued due to insurance. SUBJECTIVE Patient came to the office for follow-up visit. She denies any bleeding and bruising. Denies any chest pain and abdominal pain. Weight and appetite stable. No other new complaints. Review of system [...] no lymphadenopathy, sweats, flushing Musculoskeletal: denies: myalgia, arthralgia Neurological: denies blurry or disturbed vision, [...] iron 38 saturation 11% vitamin B12 587 Assessment: Plan: Patient Active Problem List Diagnosis Date Noted Stage 3b chronic kidney disease 12/03/2020 Chronic anemia 12/03/2020 Other dietary vitamin B12 deficiency anemia 12/03/2020 Multifactorial anemia. This is secondary to anemia of chronic kidney stage III disease, iron deficiency and vitamin B12 deficiency. Labs noted. Hemoglobin has improved. Continue oral iron twice a day with vitamin C. No need for Procrit. Follow-up with me in 6 months. Vitamin B12 deficiency. B12 level remains normal. Continue vitamin B12 1 mg daily. CKD stage III. Creatinine stable. Type 2 diabetes. Patient will continue Trulicity and Amaryl. She will follow with the primary care physician. Follow-up in 6 months. TOBACCO COUNSELING She is not a tobacco user. 11/18/2022 Gabo Jiang MD documented in this encounter Plan of Treatment Upcoming Encounters Date Type Department Care Team (Late st Contact Info) Description 12/26/2024 1:00 PM CDT Office Visit [facility] Oncology and Hematology - [place] [address] [facility] [address] [place] [address] Gabo Jiang MD [address] [facility] [address] [place] [address] documented as of this encounter Visit Diagnoses Diagnosis Chronic anemia- Primary Anemia, unspecified documented in this encounter Care Teams Datawarehouse Developer Relationship Specialty Start Date End Date Wiley Causey MD PCP - General Family Practice 08/04/21 documented as of this encounter
--- OUTSIDE RECORDS SUMMARY | 2024-07-02 20:31 | XMS_ITS | Encounter Summary ---
Author Organization [facility] Address [address] [place] [address] Care Team Providers Care Research Biologist Name Role Phone Wiley Causey MD Primary Care Provider [phone] [phone] Encounter Details Date Type Department Care Team (Late st Contact Info) Description 08/11/2023 External Device Data STL ABSTRACTION Provider, Abstract NO ADDRESS ON FILE Social History Tobacco Use Types Packs/Day Years Used Date Smoking Tobacco: Former Cigarettes 2006 Smokeless Tobacco: Never Alcohol Use Standard [...] [facility] Oncology and Hematology - [place] [address] [place] [address] [address] [place] [address] [place] [address] [place] [address] [address] [place] [address] documented as of this encounter Visit Diagnoses Not on filedocumented in this encounter Care Teams Research Biologist Relationship Specialty Start Date End Date Wiley Causey MD PCP - General Family Practice 08/04/21 documented as of this encounter
--- OUTSIDE RECORDS SUMMARY | 2024-07-02 20:31 | XMS_ITS | Encounter Summary ---
Author Organization [facility] Address [address] [place] [address] Care Team Providers Care Drop Board Man Name Role Phone Unavailable Primary Care Provider Unavailabl e Encounter Details Date Type Department Care Team ([facility] st Contact Info) Description 05/13/2016 12:37 PM CDT - 05/13/2016 11:59 PM CDT Hospital Encounter [facility] Homar Munguia MD [address] [place] [address] Abnormal levels of other serum enzymes Social History Tobacco Use Types Packs/Day Years Used Date Smoking Tobacco: Never Assessed Comments Unknown Sex and Gender Information Value Date Recorded Sex Assigned at Not on file Legal Sex Female 8:44 PM COLORMAN Gender Identity Not on file Sexual Orientation Not on file documented as of this encounter Plan of Treatment Not on file documented as of this encounter Procedures Procedure Name Priority Date/Time Associated Diagnosis Comments DISCHARGE LABORATORY CUMULATIVE REPORT 05/14/2016 SERUM ASPARTATE TRANSAMINASE (AST) Routine 05/13/2016 12:45 PM CDT SERUM ALKALINE PHOSPHATASE Routine 05/13/2016 12:45 PM CDT documented in this encounter Results * DISCHARGE LABORATORY CUMULATIVE REPORT (05/14/2016) Narrative 05/14/2016 Ordered by an unspecified provider. us Historical Provider LAB BLOOD ORDERABLES Katelyn l Result * Serum aspartate transaminase (AST) (05/13/2016 12:45 PM CDT) AST 22 10 - 40 Units/L CDR HISTORICAL RESULTS Serum 05/13/2016 12:4 5 PM CDT Historical Provider LAB BLOOD ORDERABLES Katelyn l Result Performing Organization Address [facility] de Phone Number CDR HISTORICAL RESULTS * Serum alkaline phosphatase (05/13/2016 12:45 PM CDT) Alk phos 88 40 - 130 Units/L CDR HISTORICAL RESULTS Serum 05/13/2016 12:4 5 PM CDT Historical Provider LAB BLOOD ORDERABLES Katelyn l Result Performing Organization Address [facility] Co de Phone Number CDR HISTORICAL RESULTS documented in this encounter Visit Diagnoses Diagnosis Abnormal levels of other serum enzymes documented in this encounter
--- OUTSIDE RECORDS SUMMARY | 2024-07-02 20:31 | XMS_ITS | Encounter Summary ---
Author Organization [facility] Address [address] [place] [address] Care Team Providers Care Machine Lead Burner Name Role Phone Wiley Causey MD Primary Care Provider [phone] [phone] Encounter Details Date Type Department Care Team (Late st Contact Info) Description 04/07/2023 External Device Data STL ABSTRACTION Provider, Abstract [...] Description 12/26/2024 1:00 PM CDT Office Visit [facility] Oncology and Hematology - [place] [address] [place] [address] [address] [place] [address] [place] [address] [place] [address] [address] [place] [address] documented as of this encounter Visit Diagnoses Not on filedocumented in this encounter Care Teams Machine Lead Burner Relationship Specialty Start Date End Date Wiley Causey MD PCP - General Family Practice 08/04/21 documented as of this encounter
--- OUTSIDE RECORDS SUMMARY | 2024-07-02 20:31 | XMS_ITS | Encounter Summary ---
Author Organization [facility] Address [address] [place] [address] Care Team Providers Care Carrot Buncher Name Role Phone Wiley Causey MD Primary Care Provider [phone] -[phone] Reason for Visit * Reason Comments Follow Up * Eval and Treat (Routine) - Closed Specialty Diagnoses / Procedures Referred By Contsabra t Referred To Contact Hematology and Oncology Diagnoses Anemia, unspecified Procedures office level 3-5 Wiley Causey MD [address] [place] [address] [facility] Oncology And Hematology [place] [address] [place] [address] Referral ID Status Reason Start Date Expiration Date Visits Re quested Visits Authorized [id number] Closed 07/06/2022 07/05/2023 12 12 Encounter Details Date Type Department Care Team (Late st Contact Info) Description 07/21/2022 2:15 PM CITY COMPTROLLER Office Visit [facility] Oncology and Hematology - [place] [address] [place] [address] Gabo Jiang MD [address] [facility] [address] [place] [address] Chronic anemia (Primary Dx) Social History Tobacco Use Types Packs/Day Years Used Date Smoking Tobacco: Former Cigarettes 2 25 1 982 - 2006 Smokeless Tobacco: Never Tobacco Cessation:Counseling [...] Coronavirus/COVID-19? No / Unsure 07/21/2022 1:54 PM CITY COMPTROLLER documented as of this encounter Last Filed Vital Signs Vital Sign Reading Time Taken Comments Blood Pressure 147/58 07/21/2022 2:20 PM CITY COMPTROLLER Pulse 88 07/21/2022 2:19 PM CITY COMPTROLLER Temperature 36.1 ??C (96.9 ??F) 07/21/2022 2:19 PM CS T Respiratory Rate - - Oxygen Saturation 92% 07/21/2022 2:19 PM CITY COMPTROLLER Inhaled Oxygen Concentration - - Weight 92.7 kg (204 lb 4.8 oz) 07/21/2022 2:19 P M CITY COMPTROLLER Height - - Body Mass Index 37.37 04/20/2022 2:54 PM CDT documented in this encounter Progress Notes * Gabo Jiang MD - 07/21/2022 2:46 PM CST HEMATOLOGY / ONCOLOGY PROGRESS NOTE [...] discontinued due to insurance. SUBJECTIVE Patient came into the office for follow-up visit. She denies any excessive tiredness and fatigue. Denies any bleeding or bruising. Her weight and appetite stable. She has been tolerating iron replacement therapy well. She feels good with the vitamin B12 injection but only for couple of weeks. States she denies any other new complaint. Review of system Constitutional: denies fevers, sweats, denies any excessive tiredness and fatigue. HEENT: denies sinus congestion, hearing or vision [...] lumps, bumps or rashes. 12 point review system was reviewed and as above. Objective: Vital signs in last 24 hours: [...] No lymphadenopathy Neuro: No obvious focal deficit Examination as above [facility] Labs from December [...] 900 WBC 10.4 hemoglobin 10.6 platelet 207,000 Assessment: Plan: Patient Active Problem List Diagnosis Date Noted Stage 3b chronic kidney disease 12/03/2020 Chronic anemia 12/03/2020 Other dietary vitamin B12 deficiency anemia 12/03/2020 Multifactorial anemia. This is secondary to anemia of chronic kidney stage III disease, iron deficiency and vitamin B12 deficiency. Labs noted. Hemoglobin has improved to 10.6. She will continue oral iron twice a day with vitamin Cdaily. No need for Procrit injection as long as hemoglobin is more than 10. Vitamin B12 deficiency. B12 level has improved. She will continue vitamin B12 1 mg daily at home. Chronic kidney stage III disease. Stable. Type 2 diabetes. Patient is on Trulicity and Amaryl. She will follow with the primary care physician. Follow-up with me in 4 months. TOBACCO COUNSELING She is not a tobacco user. 07/21/2022 Gabo Jiang MD COMPTROLLER documented in this encounter Plan of Treatment Upcoming Encounters Date Type Department Care Team (Late st Contact Info) Description 12/26/2024 1:00 PM CDT Office Visit [facility] Oncology and Hematology - [place] [address] [facility] 200 [place] [address] Gabo Jiang MD [address] [facility] [address] [place] [address] Scheduled Orders Name Type Priority Associated Diagnoses Orde r Schedule COMPREHENSIVE METABOLIC PANEL Lab Stat Chronic anemia Expected: 11/10/2022, Expires: 07/21/2023 documented as of this encounter Visit Diagnoses Diagnosis Chronic anemia- Primary Anemia, unspecified documented in this encounter Care Teams Carrot Buncher Relationship Specialty Start Date End Date Wiley Causey MD PCP - General Family Practice 08/04/21 documented as of this encounter
--- OUTSIDE RECORDS SUMMARY | 2024-07-02 20:31 | XMS_ITS | Encounter Summary ---
Author Organization [facility] Address [address] [place] [address] Care Team Providers Care Screener Operator Name Role Phone Wiley Causey MD Primary Care Provider [phone] [phone] Encounter Details Date Type Department Care Team (Late st Contact Info) Description 08/13/2023 External Device Data STL ABSTRACTION Provider, Abstract [facility] On[facility] [place] [address] [place] [address] [address] [place] [address] [place] [address] [place] [address] [address] [place] [address] documented as of this encounter Visit Diagnoses Not on filedocumented in this encounter Care Teams Screener Operator Relationship Specialty Start Date End Date Wiley Causey MD PCP - General Family Practice 08/04/21 documented as of this encounter
--- OUTSIDE RECORDS SUMMARY | 2024-07-02 20:31 | XMS_ITS | Encounter Summary ---
Author Organization [facility] Address [address] [place] [address] Care Team Providers Care Wood Model Maker Name Role Phone Wiley Causey MD Primary Care Provider [phone] [phone] Encounter Details Date Type Department Care Team (Late st Contact Info) Description 05/10/2023 External Device Data STL ABSTRACTION Provider, Abstract [...] Description 12/26/2024 1:00 PM CDT Office Visit [facility] Oncology and Hematology - [place] [address] [place] [address] [address] [place] [address] [place] [address] [place] [address] [address] [place] [address] documented as of this encounter Visit Diagnoses Not on filedocumented in this encounter Care Teams Wood Model Maker Relationship Specialty Start Date End Date Wiley Causey MD PCP - General Family Practice 08/04/21 documented as of this encounter
--- OUTSIDE RECORDS SUMMARY | 2024-07-02 20:31 | XMS_ITS | Encounter Summary ---
Author Organization [facility] SHAINArocket staff [facility] Address [address] [place] [address] Care Team Providers Care Technical Cable Jointer Name Role Phone Wiley Causey MD Primary Care Provider +1 [phone] Reason for Visit * Reason Comments Follow Up Encounter Details Date Type Department Care Team ([facility] Contact Info) Description 06/27/2024 10:15 AM FLEXOGRAPHIC PRESS OPERATOR Office Visit [facility] Oncology and Hematology - [place] [address] [place] [address] [address] [place] [address] Gabo Jiang MD [address] [facility] [address] [place] [address] Chronic anemia (Primary Dx) Social History Tobacco Use Types Packs/Day Years Used Date Smoking Tobacco: Former Cigarettes 2 1 2 - 2006 Smokeless Tobacco: Never [...] Sign Reading Time Taken Comments Blood Pressure 178/92 06/27/2024 10:20 AM FLEXOGRAPHIC PRESS OPERATOR Pulse 94 06/27/2024 10:17 AM FLEXOGRAPHIC PRESS OPERATOR Temperature 36.7 ??C (98 ??F) 06/27/2024 10:17 AM FLEXOGRAPHIC PRESS OPERATOR Respiratory Rate 17 06/27/2024 10:17 AM FLEXOGRAPHIC PRESS OPERATOR Oxygen Saturation 97% 06/27/2024 10:17 AM FLEXOGRAPHIC PRESS OPERATOR Inhaled Oxygen Concentration - - Weight 93.3 kg (205 lb 9.6 oz) 06/27/2024 10:17 AM FLEXOGRAPHIC PRESS OPERATOR Height - - Body Mass Index 37.6 04/20/2022 2:54 PM CDT documented in this encounter Progress Notes * Gabo Jiang MD - 06/27/2024 10:53 AM CST HEMATOLOGY / ONCOLOGY PROGRESS NOTE Patient Identification: Name: Edith Mayo Age: 74 y.o. Sex: female : 1950 DIAGNOSIS Multifactorial [...] to the office for follow-up visit. She recently fell and complaining of back pain. Denies any excessive tiredness and fatigue. No bleeding and bruising. Weight and appetite stable. No other new complaints. Review of system Constitutional: denies fevers, sweats, complain of mild tiredness and fatigue, weight and appetite stable HEENT: denies sinus congestion, hearing or vision problems Respiratory: denies cough, dyspnea, wheeze Cardiovascular: denies chest pain, exertional chest pressure/discomfort, nausea, syncope, shortnessof breath GI: denies constipation, diarrhea, dsyphagia, reflux symptoms, vomiting, melena : denies dysuria, frequency, incontinence, urgency Integumentary system: no lymphadenopathy, sweats, flushing Musculoskeletal: denies: myalgia, complain of back pain status post recent fall Neurological: denies blurry or disturbed vision, numbness/weakness, [...] 19.4 hemoglobin 11.7 WBC 10.9 platelet 234,000 Labs from June 18 showed creatinine 1.7 GFR 30 B12 361 iron 49 saturation 13 ferritin 19.2 hemoglobin 12 Assessment: Plan: Patient Active Problem List Diagnosis Date Noted Stage 3b chronic kidney disease 12/03/2020 Chronic anemia 12/03/2020 Other dietary vitamin B12 deficiency anemia 12/03/2020 Multifactorial anemia. This is secondary to anemia of chronic kidney stage III disease, iron deficiency and vitamin B12 deficiency. Patient is intolerant to oral iron. Labs noted. Hemoglobin has improved. Patient is able to take oral iron once a day. No need for Procrit injection follow-up in 6 months. Vitamin B12 deficiency. B12 level remains normal. Continue monthly B12 injections at home. Reactive leukocytosis secondary to arthralgia. WBC stable at 10.8. Chronic kidney stage III disease. Stable. She will follow-up with propellant assembler. Type 2 diabetes. This has been managed by the primary care physician. Follow-up in 6 months. 06/27/2024 Gabo Jiang MD OGRAPHIC PRESS OPERATOR documented in this encounter Plan of Treatment Upcoming Encounters Date Type Department Care Team (Late st Contact Info) Description 12/26/2024 1:00 PM CDT Office Visit [facility] Oncology and Hematology [facility] [address] [facility] [address] [place] [address] Gabo Jiang MD [address] [facility] [address] [place] [address] Scheduled Orders Name Type Priority Associated Diagnoses Orde r Schedule CBC WITHOUT DIFFERENTIAL Lab Stat Chronic anemia Expected: 12/26/2024, Expires: 06/27/2025 FERRITIN Lab Routine Chronic anemia Expected: 12/26/2024, Expires: 06/27/2025 IRON, TIBC, AND PERCENT SATURATION Lab Routine Chronic anemia Expected: 12/26/2024, Expires: 06/27/2025 VITAMIN B12 AND FOLATE Lab Routine Chronic anemia Expected: 12/26/2024, Expires: 06/27/2025 BASIC METABOLIC PANEL Lab Stat Chronic anemia Expected: 12/26/2024, Expires: 06/27/2025 documented as of this encounter Visit Diagnoses Diagnosis Chronic anemia- Primary Anemia, unspecified documented in this encounter Care Teams Technical Cable Jointer Relationship Specialty Start Date End Date Wiley Causey MD PCP - General Family Practice 08/04/21 documented as of this encounter
--- OUTSIDE RECORDS SUMMARY | 2024-07-02 20:31 | XMS_ITS | Encounter Summary ---
Author Organization [facility] Address [address] [place] [address] Care Team Providers Care Coastal Tug Mate Name Role Phone Wiley Causey MD Primary Care Provider [phone] [phone] Encounter Details Date Type Department Care Team (Late st Contact Info) Description 06/29/2023 External Device Data STL ABSTRACTION Provider, Abstract NO ADDRESS ON FILE Social History Tobacco Use Types Packs/Day Years Used Date Smoking Tobacco: Former Cigarettes 2 2 - 2006 Smokeless Tobacco: Never Alcohol [...] Description 12/26/2024 1:00 PM CDT Office Visit [facility] Oncology and Hematology - [place] [address] [place] [address] [address] [place] [address] [place] [address] [place] [address] [address] [place] [address] documented as of this encounter Visit Diagnoses Not on filedocumented in this encounter Care Teams Coastal Tug Mate Relationship Specialty Start Date End Date Wiley Causey MD PCP - General Family Practice 08/04/21 documented as of this encounter
--- OUTSIDE RECORDS SUMMARY | 2024-07-02 20:31 | XMS_ITS | Encounter Summary ---
Author Organization [facility] Healthcare Address [address] [place] [address] Care Team Providers Care Local Owner Operator Truck Driver Name Role Phone Sheldon Santos MD Primary Care Provide r Encounter Details Date Type Department Care Team (Latest Contact Info) Description 03/29/2017 7:05 AM CDT - 03/29/2017 11:59 PM CDT Hospital Encounter [facility] INTERIM Sheldon Santos MD [employer] [place] [address] Discharge Disposition: Discharge to home or self care Social History Tobacco Use Types Packs/Day Years Used Date Smoking Tobacco: Never Assessed Comments Unknown Sex and Gender Information Value Date Recorded Sex Assigned at Not on file Legal Sex Female 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 Gender Identity Not on file Sexual Orientation Not on file documented as of this encounter Discharge Disposition Disposition Code Departure Means Destination Discharge to home or self care documented in this encounter Plan of Treatment Not on file documented as of this encounter Procedures Procedure Name Priority Date/Time Associated Diagnosis Comments DISCHARGE LABORATORY CUMULATIVE REPORT 03/30/2017 12:00 AM CDT HEMOGLOBIN A1C New Adm-Reg 03/29/2017 7:10 AM CDT LIPID PANEL New Adm-Reg 03/29/2017 7:10 AM CDT documented in this encounter Results * DISCHARGE LABORATORY CUMULATIVE REPORT (03/30/2017 12:00 AM CDT) Narrative 03/30/2017 12:00 AM CDT Ordered by an unspecified provider. us Historical Provider LAB BLOOD ORDERABLES Katelyn l Result * (ABNORMAL) Lipid panel (03/29/2017 7:10 AM CDT) Cholesterol 176 40 - 199 mg/dL JOSHUA MACIEL (EMANUEL) Comment: Interpretive Data Desirable: ??Less than 200 mg/dl ? Borderline High: ?200 - 239 mg/dl ? High: ??Greater than ?? 239 mg/dl Current interpretive data was last revised on 2014. Triglycerides 213.0(H) <=150.0 mg/dL JOSHUA MACIEL (EMANUEL) Comment: Interpretive Data Normal: ? Less than 150 mg/dl Borderline high: ??150-199 mg/dl ?? High: ? 200-499 mg/dl ? Very high: ??Greater than or equal to 500 mg/dl Current interpretive data was last revised on 2016. HDL 39(L) 40 - 60 mg/dL JOSHUA MACIEL (EMANUEL) Comment: Interpretive Data Low HDL Cholesterol: ? Less than 40 mg/dl Normal HDL Cholesterol: ??40-60 mg/dl High HDL Cholesterol: ?Greater than 60 mg/dl Current interpretive data was last revised on 2014. LDL, calculated 94 mg/dL ANDREAS MACIEL (EMANUEL) Comment: Interpretive Data Optimal ? Less than [...] data was last revised on 2014. Non-HDL Cholesterol 137 mg/dL JOSHUA MACIEL (EMANUEL) Comment: Interpretive Data Optimal ? Less than 130 mg/dL Low Risk ?130 - 159 mg/dL Moderate Risk ? 160 - 189 mg/dL High Risk ? Greater than or equal to 190 mg/dL Current interpretive data was last revised on 2014. Blood specimen (specimen) 03/29/2017 7:10 AM CDT 03/29/2017 9:40 AM CDT us Sheldon Santos MD LAB BLOOD ORDERABLES Final Result Performing Organization Address [facility] de Phone Number JOSHUA MACIEL (EMANUEL) [address] [facility] [place] [address] * Hemoglobin A1c (03/29/2017 7:10 AM CDT) Hgb A1C 6.0 4.0 - 6.0 % JOSHUA MACIEL (EMANUEL) Estimated Average Glucose 126 JOSHUA MACIEL (EMANUEL) Blood specimen (specimen) 03/29/2017 7:10 AM CDT 03/29/2017 9:40 AM CDT us Sheldon Santos MD LAB BLOOD ORDERABLES Final Result Performing Organization Address [facility] de Phone Number JOSHUA RAHEEM (EMANUEL) 1 [facility] [place] [address] documented in this encounter Visit Diagnoses Not on filedocumented in this encounter Care Teams Local Owner Operator Truck Driver Relationship Specialty Start Date End Date Sheldon Santos MD PCP - General 03/29/17 03/10/20 documented as of this encounter
--- OUTSIDE RECORDS SUMMARY | 2024-07-02 20:31 | XMS_ITS | Encounter Summary ---
Author Organization [facility] SHAINAFix That Bug [facility] Address [address] [place] [address] Care Team Providers Care Liquid Waste Treatment Plant Operator Name Role Phone Wiley Causey MD Primary Care Provider [phone] [phone] Encounter Details Date Type Department Care Team (Late Contact Info) Description 07/15/2022 Orders Only [facility] Oncology and Hematology - [place] [address] [place] [address] Marguerite Koch Chronic anemia Social [...] Description 12/26/2024 1:00 PM CDT Office Visit [facility] Oncology and Hematology - [place] [address] [place] [address] Gabo Jiang MD [address] [facility] [address] [place] [address] documented as of this encounter Visit Diagnoses Diagnosis Chronic anemia Anemia, unspecified documented in this encounter Care Teams Liquid Waste Treatment Plant Operator Relationship Specialty Start Date End Date Wiley Causey MD PCP - General Family Practice 08/04/21 documented as of this encounter
--- OUTSIDE RECORDS SUMMARY | 2024-07-02 20:31 | XMS_ITS | Encounter Summary ---
Author Organization [facility] Address [address] [facility] Attn: Epic Prelude ADT MARYAM MARTINES [address] Care Team Providers Care Car Changer Name Role Phone Wiley Causey MD Primary Care Provider [phone] [phone] Encounter Details Date Type Department Care Team (Latest Contact Info) Description 11/18/2022 Travel Social History Tobacco Use Types Packs/Day [...] PM CDT documented as of this encounter Plan of Treatment Upcoming Encounters Date Type Department Care Team (Late st Contact Info) Description 12/26/2024 1:00 PM CDT Office Visit [facility] Oncology and Hematology - [place] [address] [facility] [address] [place] [address] Gabo Jiang MD [address] [facility] [address] [place] [address] documented as of this encounter Visit Diagnoses Not on filedocumented in this encounter Care Teams Car Changer Relationship Specialty Start Date End Date Wiley Causey MD PCP - General Family Practice 08/04/21 documented as of this encounter
--- OUTSIDE RECORDS SUMMARY | 2024-07-02 20:31 | XMS_ITS | Encounter Summary ---
Author Organization [facility] Address [address] [place] [address] Care Team Providers Care Director Of Events Name Role Phone Wiley Causey MD Primary Care Provider [phone] [phone] Encounter Details Date Type Department Care Team (Late st Contact Info) Description 08/10/2023 External Device Data STL ABSTRACTION Provider, Abstract [...] 12/26/2024 1:00 PM CDT Office Visit [facility] Oncology and Hematology - [place] [address] [place] [address] [address] [place] [address] [place] [address] [place] [address] [address] [place] [address] documented as of this encounter Visit Diagnoses Not on filedocumented in this encounter Care Teams Director Of Events Relationship Specialty Start Date End Date Wiley Causey MD PCP - General Family Practice 08/04/21 documented as of this encounter
--- OUTSIDE RECORDS SUMMARY | 2024-07-02 20:31 | XMS_ITS | Encounter Summary ---
Author Organization [facility] Address [address] [place] [address] Care Team Providers Care Outdoor Emergency Care Technician Name Role Phone Wiley Causey MD Primary Care Provider [phone] [phone] Encounter Details Date Type Department Care Team (Late st Contact Info) Description 09/20/2023 External Device Data STL ABSTRACTION Provider, Abstract [...] Description 12/26/2024 1:00 PM CDT Office Visit [facility] Oncology and Hematology - [place] [address] [place] [address] [address] [place] [address] [place] [address] [place] [address] [address] [place] [address] documented as of this encounter Visit Diagnoses Not on filedocumented in this encounter Care Teams Outdoor Emergency Care Technician Relationship Specialty Start Date End Date Wiley Causey MD PCP - General Family Practice 08/04/21 documented as of this encounter
--- OUTSIDE RECORDS SUMMARY | 2024-07-02 20:31 | XMS_ITS | Encounter Summary ---
Author Organization [facility] Address [address] [place] [address] Care Team Providers Care Computer System Validation Specialist Name Role Phone Wiley Causey MD Primary Care Provider [phone] [phone] Encounter Details Date Type Department Care Team (Late st Contact Info) Description 08/12/2023 External Device Data STL ABSTRACTION Provider, Abstract [...] Description 12/26/2024 1:00 PM CDT Office Visit [facility] Oncology and Hematology - [place] [address] [place] [address] [address] [place] [address] [place] [address] [place] [address] [address] [place] [address] documented as of this encounter Visit Diagnoses Not on filedocumented in this encounter Care Teams Computer System Validation Specialist Relationship Specialty Start Date End Date Wiley Causey MD PCP - General Family Practice 08/04/21 documented as of this encounter
--- OUTSIDE RECORDS SUMMARY | 2024-07-02 20:31 | XMS_ITS | Clinical Summary ---
Author Organization [facility] Address [address] [facility] [address] Care Team Providers Care Moving Picture Operator Name Role Phone Wiley Causey MD Primary Care Provider [phone] [phone] Allergies Active Allergy Reactions Criticality Noted Date Comments Atorvastatin Hives High 12/03/2020 Budesonide-Formoterol Muscle Pain Medium 11/26/2020 Uabuvjz-Hbk-Svf Reductase Inhibitors Other (See Comments) 04/28/2021 Tramadol Hives High 09/15/2018 Medications Medication Sig Dispensed Refills Start Date End Date Status amLODIPine (NORVASC) 5 mg tablet Take 5 mg by mouth. 05/22/2019 Activ e betamethasone valerate (VALISONE) 0.1 % Cream Apply to affected area. Active blood sugar diagnostic Strip TEST BS ONCE D 03/09/2020 Acti ve dulaglutide (Trulicity) 1.5 mg/0.5 mL injection .075 per pcp 09/24/2020 Active glimepiride (AMARYL) 1 mg tablet 1 mg. 03/29/2019 Active lancets USE TO TEST ONCE DAILY 03/09/2020 Active lisinopriL (PRINIVIL) 20 mg tablet Take 20 mg by mouth. Active Vit D3 & E-Bgczdhjsa-Ajif [id number] jmka-zge-ci-mg Tablet Take by mouth. Active omeprazole (PriLOSEC) 40 mg Capsule, Delayed Release(E.C.) Take 40 mg by mouth daily. Active topiramate (TOPAMAX) 25 mg tablet Take 25 mg by mouth daily. 08/04/2021 Active Ozempic 1 mg/dose (4 mg/3 mL) Pen Injector 10/26/2021 Active predniSONE (DELTASONE) 1 mg tablet TAKE 4 TABLETS BY MOUTH DAILY 10/16/2021 Active allopurinoL (ZYLOPRIM) 300 mg tablet Take 300 mg by mouth daily. 10/20/2021 Active Syringe with Needle, Disp, 1 mL 27 x 1/2 SyringeIndicatio ns:Other dietary vitamin B12 deficiency anemia Use 1 syringe to inject 1000 mcg vitamin B12 (1 mL) every 4 weeks. 1 Each 06/13/2024 Active cyanocobalamin (VITAMIN B-12) 1,000 mcg/mL SolutionIndicati ons:Other dietary vitamin B12 deficiency anemia Inject 1 mL (1,000 mcg) by intramuscular injection every 30 days. 1 mL 06/13/2024 Active HYDROcodone-acet aminophen (NORCO) 5-325 mg tablet Take 1 Tablet by mouth every 8 hours as needed. 06/19/2024 Active cyanocobalamin (VITAMIN B-12) 1,000 mcg/mL SolutionIndicati ons:Other dietary vitamin B12 deficiency anemia Inject 1 mL (1,000 mcg) by intramuscular injection every 30 days. 1 mL 6 09/21/2023 06/13/2024 Discontinue d(Reorder) Syringe with Needle, Disp, 1 mL 27 x 1/2 SyringeIndicatio ns:Other dietary vitamin B12 deficiency anemia Use 1 syringe to inject 1000 mcg vitamin B12 (1 mL) every 4 weeks. 6 Each 1 09/21/2023 06/13/2024 Discontinue d(Reorder) Active Problems Problem Noted Date Diagnosed Date Stage 3b chronic kidney disease 12/03/2020 Chronic anemia 12/03/2020 Other dietary vitamin B12 deficiency anemia 11/15 Encounters Date Type Department Care Team Description 06/27/2024 10:15 AM ASSOCIATE PROFESSOR OF GEOGRAPHY Office Visit [facility] Oncology and Hematology - [place] [address] [place] [address] Gabo Jiang MD Chronic anemia (Primary Dx) 06/19/2024 Orders Only [facility] Oncology and Hematology - [place] [address] [place] [address] Gabo Jiang MD 06/13/2024 Refill [facility] Oncology and Hematology - [place] [address] [place] [address] Gabo Jiang MD Other dietary vitamin B12 deficiency anemia from Last 3 Months Family History Medical History Relation Name Comments Heart Disease Brother 1 Heart Disease Father Leukemia Father Diabetes Mother Liver Cancer Mother Relation Name Status Comments Brother 1 Brother 2 Alive Daughter 1 Alive Daughter 2 Alive Father Mother Son Alive Social History Tobacco Use Types Packs/Day Years Used Date Smoking Tobacco: Former Cigarettes 2 25 1 982 - 2007 Smokeless Tobacco: Never Tobacco Cessation:Counseling Given: Not Answered Alcohol Use Standard Drinks/Week Comments Yes 0 (1 standard drink = 0.6 oz pur e alcohol) Sex and Gender Information Value Date Recorded Sex Assigned at Not on file Gender Identity Not on file Sexual Orientation Not on file Last Filed Vital Signs Vital Sign Reading Time Taken Comments Blood Pressure 178/92 06/27/2024 10:20 AM ASSOCIATE PROFESSOR OF GEOGRAPHY Pulse 94 06/27/2024 10:17 AM ASSOCIATE PROFESSOR OF GEOGRAPHY Temperature 36.7 ??C (98 ??F) 06/27/2024 10:17 AM ASSOCIATE PROFESSOR OF GEOGRAPHY Respiratory Rate 17 06/27/2024 10:17 AM ASSOCIATE PROFESSOR OF GEOGRAPHY Oxygen Saturation 97% 06/27/2024 10:17 AM ASSOCIATE PROFESSOR OF GEOGRAPHY Inhaled Oxygen Concentration - - Weight 93.3 kg (205 lb 9.6 oz) 06/27/2024 10:17 AM ASSOCIATE PROFESSOR OF GEOGRAPHY Height 157.5 cm (5' 2 ) 04/20/2022 2:54 PM CDT Body Mass Index 37.6 04/20/2022 2:54 PM CDT Plan of Treatment Upcoming Encounters Date Type Department Care Team (Late st Contact Info) Description 12/26/2024 1:00 PM CDT Office Visit [facility] Oncology and Hematology - [place] [address] [facility] [address] [place] [address] Gabo Jiang MD [address] [facility] [address] [place] [address] Health Maintenance Due Date Last Done Comments PNEUMOCOCCAL VACCINE 65+ YEA RS (1 of 2 - PCV) 1958 DIABETES ANNUAL RETINAL EXAM 1970 DIABETES MICROALBUMIN ANNUAL SCREEN 1970 LDL CHOLESTEROL ANNUAL 1970 DTAP/TDAP/TD VACCINES (1 - Tdap) 1971 BREAST CANCER SCREENING 1992 COLORECTAL SCREENING 1997 Colorectal Cancer Screening 1997 FIT-DNA Q 3 years 1997 FIT/FOBT Q 1 year 1997 Flex Sig/CT Colonography Q 5 years 1997 ZOSTER VACCINE (1 of 2) 2002 RSV VACCINE (60+ or ) (1 - Risk 60-74 years 1-dose series) 2012 OSTEOPOROSIS SCREENING 2017 DIABETES HBA1C Q 6 MONTHS 12/31/20202019, 07/01/2020, 01/17/2020 DIABETES ANNUAL FOOT EXAM 03/20/2021 [place] ([place]) Prev entative Visit/Annual Wellness Visit 07/18/2023 INFLUENZA VACCINE (#1) 2024 Procedures Procedure Name Priority Date/Time Associated Diagnosis Comments BASIC METABOLIC PANEL Routine 06/18/2024 12:48 PM ASSOCIATE PROFESSOR OF GEOGRAPHY CBC WITH DIFFERENTIAL Routine 06/18/2024 10:45 AM ASSOCIATE PROFESSOR OF GEOGRAPHY from Last 3 Months Results * BASIC METABOLIC PANEL (06/18/2024 12:48 PM ASSOCIATE PROFESSOR OF GEOGRAPHY) Blood Gabo Jiang MD CHEMISTRY ORDERABLES * CBC WITH DIFFERENTIAL (06/18/2024 10:45 AM ASSOCIATE PROFESSOR OF GEOGRAPHY) Blood Gabo Jiang MD HEMATOLOGY ORDERABLE S from Last 3 Months Care Teams Moving Picture Operator Relationship Specialty Start Date End Date Wiley Causey MD PCP - General Family Practice 08/04/21
--- OUTSIDE RECORDS SUMMARY | 2024-07-02 20:31 | XMS_ITS | Encounter Summary ---
Author Organization [facility] Address [address] [place] [address] Care Team Providers Care Plate Setter Name Role Phone Wiley Causey MD Primary Care Provider [phone] [phone] Encounter Details Date Type Department Care Team [...] 12/26/2024 1:00 PM CDT Office Visit [facility] Oncology and Hematology - [place] [address] [place] [address] [address] [place] [address] [place] [address] [place] [address] [address] [place] [address] documented as of this encounter Visit Diagnoses Not on filedocumented in this encounter Care Teams Plate Setter Relationship Specialty Start Date End Date Wiley Causey MD PCP - General Family Practice 08/04/21 documented as of this encounter
--- OUTSIDE RECORDS SUMMARY | 2024-07-02 20:31 | XMS_ITS | Encounter Summary ---
Author Organization [facility] DELISAPipeliner CRM [facility] Address [address] [place] [address] Care Team Providers Care Merchant Seaman Name Role Phone Wiley Causey MD Primary Care Provider +1 [phone] Reason for Visit * Reason Onset Date Comments Medication Refill 06/13/2024 Encounter Details Date Type Department Care Team ([facility] Contact Info) Description 06/13/2024 Refill [facility] Oncology and Hematology - Edil [address] [place] [address] Gabo Jiang MD [facility] [employer] [address] [place] [address] Other dietary vitamin B12 deficiency anemia Social History Tobacco Use Types Packs/Day Years Used Date Smoking Tobacco: Former Cigarettes 2 25 - 2006 Smokeless Tobacco: Never Alcohol Use Standard Drinks/Week Comments Yes 0 (1 standard drink = 0.6 oz pur e alcohol) Sex and Gender Information Value Date Recorded Sex Assigned at Not on file Gender Identity Not on file Sexual Orientation Not on file documented as of this encounter Plan of Treatment Upcoming Encounters Date Type Department Care Team ([facility] Contact Info) Description 12/26/2024 1:00 PM CDT Office Visit [facility] Oncology and Hematology - Edil [address] [place] [address] Gabo Jiang MD [facility] [employer] [address] [place] [address] documented as of this encounter Visit Diagnoses Diagnosis Other dietary vitamin B12 deficiency anemia documented in this encounter Care Teams Merchant Seaman Relationship Specialty Start Date End Date Wiley Causey MD PCP - General Family Practice 08/04/21 documented as of this encounter
--- OUTSIDE RECORDS SUMMARY | 2024-07-02 20:31 | XMS_ITS | Encounter Summary ---
Author Organization [facility] DELISAMeroArte [facility] Address [address] [place] [address] Care Team Providers Care Poll Watcher Name Role Phone Wiley Causey MD Primary Care Provider +1 [phone] Encounter Details Date Type Department Care Team ([facility] Contact Info) Description 11/17/2022 Orders Only [facility] Oncology and Hematology - Edil [address] [place] [address] IcenogleFahadZhane Chronic anemia Social History Tobacco Use Types [...] Upcoming Encounters Date Type Department Care Team ([facility] Contact Info) Description 12/26/2024 1:00 PM CDT Office Visit [facility] Oncology and Hematology - Edil [address] [place] [address] Gabo Jiang MD [address] [facility] [address] [place] [address] documented as of this encounter Visit Diagnoses Diagnosis Chronic anemia Anemia, unspecified documented in this encounter Care Teams Poll Watcher Relationship Specialty Start Date End Date Wiley Causey MD PCP - General Family Practice 08/04/21 documented as of this encounter
--- OUTSIDE RECORDS SUMMARY | 2024-07-02 20:31 | XMS_ITS | Encounter Summary ---
Author Organization [facility] SHAINAIntegraGen [facility] Address [address] [place] [address] Care Team Providers Care Soft Metals Hand Engraver Name Role Phone Wiley Causey MD Primary Care Provider [phone] [phone] Encounter Details Date Type Department Care Team ([facility] Contact Info) Description 05/18/2023 Orders Only [facility]3] Oncology and Hematology Edil [facility] [address] [place] [address] Gabo Jiang MD [facility] [employer] [address] [place] [address] Social History Tobacco Use Types Packs/Day [...] PM CDT Office Visit [facility]3] Oncology and Hematology - Edil [address] [place] [address] Gabo Jiang MD [facility] [employer] [address] [place] [address] documented as of this encounter Procedures Procedure Name Priority Date/Time Associated Diagnosis Comments BASIC METABOLIC PANEL Routine 05/17/2023 10:32 AM CDT documented in this encounter Results * BASIC METABOLIC PANEL (05/17/2023 10:32 AM CDT) Blood Gabo Jiang MD CHEMISTRY ORDERABLES documented in this encounter Visit Diagnoses Not on filedocumented in this encounter Care Teams Soft Metals Hand Engraver Relationship Specialty Start Date End Date Wiley Causey MD PCP - General Family Practice 08/04/21 documented as of this encounter
--- OUTSIDE RECORDS SUMMARY | 2024-07-02 20:31 | XMS_ITS | Encounter Summary ---
Author Organization [facility] Care Team Providers Care Rn Integrity Name Role Phone Sheldon Santos MD Primary Care Provide r Encounter Details Date Type Department Care Team (Latest Contact Info) Description 06/12/2019 Travel Social History Tobacco Use Types Packs/Day Years Used Date Smoking Tobacco: Never Assessed Comments Unknown Sex and Gender Information Value Date Recorded Sex Assigned at Not on file Legal Sex Female 8:44 PM INVESTMENT ASSOCIATE Gender Identity Not on file Sexual Orientation Not on file documented as of this encounter Plan of Treatment Not on file documented as of this encounter Visit Diagnoses Not on filedocumented in this encounter Care Teams Rn Integrity Relationship Specialty Start Date End Date Sheldon Santos MD PCP - General 03/29/17 03/10/20 documented as of this encounter
--- OUTSIDE RECORDS SUMMARY | 2024-07-02 20:31 | XMS_ITS | Encounter Summary ---
Author Organization [facility] [email or web address] [facility] Address [address] [place] [address] Care Team Providers Care Superintendent Maintenance Airports Name Role Phone Wiley Causey MD Primary Care Provider [phone] [phone] Reason for Visit * Reason Onset Date Comments Medication Refill 12/10/2022 Encounter Details Date Type Department Care Team ([facility] Contact Info) Description 12/10/2022 Refill [facility] Oncology and Hematology [address] [place] [address] Gabo Jiang MD [address] [facility] [employer] [address] [place] [address] Other dietary vitamin B12 deficiency anemia (Primary Dx) Social History Tobacco Use Types Packs/Day Years Used Date Smoking Tobacco: Former Cigarettes 2 25 2 - 2006 Smokeless Tobacco: Never Alcohol [...] Upcoming Encounters Date Type Department Care Team ([facility] Contact Info) Description 12/26/2024 1:00 PM CDT Office Visit [facility] Oncology and Hematology Ed[place] [address] [place] [address] Gabo Jiang MD 3 [facility] [address] [place] [phone] documented as of this encounter Visit Diagnoses Diagnosis Other dietary vitamin B12 deficiency anemia- Primary documented in this encounter Care Teams Superintendent Maintenance Airports Relationship Specialty Start Date End Date Wiley Causey MD PCP - General Family Practice 08/04/21 documented as of this encounter
--- OUTSIDE RECORDS SUMMARY | 2024-07-02 20:31 | XMS_ITS | Encounter Summary ---
Author Organization [facility] Address [address] [place] [address] Care Team Providers Care Service Coordinator Elderly Facility Name Role Phone Wiley Causey MD Primary Care Provider [phone] [phone] Encounter Details Date Type Department Care Team (Late st Contact Info) Description 10/18/2023 External Device Data STL ABSTRACTION Provider, Abstract [...] [facility] Oncology and Hematology - [place] [address] [place] [address] [address] [place] [address] [place] [address] [place] [address] [address] [place] [address] documented as of this encounter Visit Diagnoses Not on filedocumented in this encounter Care Teams Service Coordinator Elderly Facility Relationship Specialty Start Date End Date Wiley Causey MD PCP - General Family Practice 08/04/21 documented as of this encounter
--- OUTSIDE RECORDS SUMMARY | 2024-07-02 20:31 | XMS_ITS | Encounter Summary ---
Author Organization [facility] Address [address] [place] [address] Care Team Providers Care Project Controls Specialist Name Role Phone Wiley Causey MD Primary Care Provider [phone] [phone] Encounter Details Date Type Department Care Team (Late st Contact Info) Description 01/17/2024 External Device Data [facility] ABSTRACTION Provider, Abstract [...] Description 12/26/2024 1:00 PM CDT Office Visit [facility] Oncology and Hematology - [place] [address] [place] [address] [address] [place] [address] [place] [address] [place] [address] [address] [place] [address] documented as of this encounter Visit Diagnoses Not on filedocumented in this encounter Care Teams Project Controls Specialist Relationship Specialty Start Date End Date Wiley Causey MD PCP - General Family Practice 08/04/21 documented as of this encounter
--- OUTSIDE RECORDS SUMMARY | 2024-07-02 20:32 | XMS_ITS | Encounter Summary ---
Author Organization [facility] DELISASCADA Access [facility] Address [address] [place] [address] Care Team Providers Care Women'S Soccer Coach Name Role Phone Wiley Causey MD Primary Care Provider [phone] [phone] Encounter Details Date Type Department Care Team ([facility] Contact Info) Description 01/13/2022 Orders Only [facility] Oncology and Hematology Edil [address] [place] [address] Gabo Jiang MD [address] [place] [address] Chronic anemia Social History Tobacco Use Types [...] Upcoming Encounters Date Type Department Care Team ([facility] Contact Info) Description 12/26/2024 1:00 PM CDT Office Visit [facility] Oncology and Hematology - Edil [address] [place] [address] Gabo Jiang MD [address] [place] [address] documented as of this encounter Visit Diagnoses Diagnosis Chronic anemia Anemia, unspecified documented in this encounter Care Teams Women'S Soccer Coach Relationship Specialty Start Date End Date Wiley Causey MD PCP - General Family Practice 08/04/21 documented as of this encounter
--- OUTSIDE RECORDS SUMMARY | 2024-07-02 20:32 | XMS_ITS | Encounter Summary ---
Author Organization [facility] SHAINAInvicta Networks [facility] Address [address] [place] [address] Care Team Providers Care Technician Biological Health Name Role Phone Angel Cottrell Elida GARCIA Primary Care Provider Nasrin vailable Encounter Details Date Type Department Care Team ([facility] Contact Info) Description 02/25/2021 Orders Only [facility] Oncology and [facility] [address] [facility] [address] [place] [address] Provider, Abstract NO ADDRESS ON FILE Social [...] have Coronavirus / COVID-19? No / Unsure 02/24/2021 8:52 AM CDT documented as of this encounter Plan of Treatment Upcoming Encounters Date Type Department Care Team ([facility] Contact Info) Description 12/26/2024 1:00 PM CDT Office Visit [facility] Oncology [facility] [address] [place] [address] Gabo Jiang MD [address] [facility] [address] [place] [address] documented as of this encounter Procedures Procedure Name Priority Date/Time Associated Diagnosis Comments MISCELLANEOUS LAB TEST Routine 02/18/2021 URINE CULTURE Routine 02/17/2021 documented in this encounter Results * MISCELLANEOUS LAB TEST (02/18/2021) Abstract Provider CHEMISTRY ORDERABLES * URINE CULTURE (02/17/2021) Urine Abstract Provider MICROBIOLOGY - GENER AL ORDERABLES documented in this encounter Visit Diagnoses Not on filedocumented in this encounter Care Teams Technician Biological Health Relationship Specialty Start Date End Date Angel Cottrell DO NO ADDRESS ON FILE PCP - General Family Practice 12/03/20 08/03/21 documented as of this encounter
--- OUTSIDE RECORDS SUMMARY | 2024-07-02 20:32 | XMS_ITS | Encounter Summary ---
Author Organization [facility] DELISASr.[employer] [facility] Address [address] [place] [address] Care Team Providers Care Mycology Teacher Name Role Phone Wiley Causey MD Primary Care Provider [phone] [phone] Encounter Details Date Type Department Care Team ([facility] Contact Info) Description 08/05/2021 Orders Only [facility] Oncology and Hematology [facility] [address] [place] [address] Provider, Abstract NO ADDRESS ON [...] have Coronavirus / COVID-19? No / Unsure 08/04/2021 10:36 AM VIDEO GAME ENGINEER documented as of this encounter Plan of Treatment Upcoming Encounters Date Type Department Care Team ([facility] Contact Info) Description 12/26/2024 1:00 PM CDT Office Visit [facility] Oncology and Hematology [facility] [address] [place] [address] Gabo Jiang MD [address] [facility] [address] [place] [address] documented as of this encounter Procedures Procedure Name Priority Date/Time Associated Diagnosis Comments FERRITIN Routine 08/04/2021 documented in this encounter Results * FERRITIN (08/04/2021) Blood Abstract Provider CHEMISTRY ORDERABLES documented in this encounter Visit Diagnoses Not on filedocumented in this encounter Care Teams Mycology Teacher Relationship Specialty Start Date End Date Wiley Causey MD PCP - General Family Practice 08/04/21 documented as of this encounter
--- OUTSIDE RECORDS SUMMARY | 2024-07-02 20:32 | XMS_ITS | Encounter Summary ---
Author Organization [facility] Address [address] [facility] Attn: Epic Prelude ADT [place] [address] Care Team Providers Care Dairy Inspector Name Role Phone Angel Cottrell DO Primary Care Provider Nasrin vailable Encounter Details Date Type Department Care Team (Latest Contact Info) Description 12/03/2020 Travel Social History Tobacco Use Types Packs/Day [...] have Coronavirus / COVID-19? No / Unsure 12/03/2020 12:53 PM CDT documented as of this encounter Plan of Treatment Upcoming Encounters Date Type Department Care Team (Late st Contact Info) Description 12/26/2024 1:00 PM CDT Office Visit [facility] Oncology and Hematology - Edil [address] [facility] [address] [place] [address] Gabo Jiang MD [address] [facility] [address] [place] [address] documented as of this encounter Visit Diagnoses Not on filedocumented in this encounter Care Teams Dairy Inspector Relationship Specialty Start Date End Date Angel Cottrell DO NO ADDRESS ON FILE PCP - General Family Practice 12/03/20 08/03/21 documented as of this encounter
--- OUTSIDE RECORDS SUMMARY | 2024-07-02 20:32 | XMS_ITS | Encounter Summary ---
Author Organization [facility]] DELISARabbit [facility] Address [address] [place] [address] Care Team Providers Care Downstream Biomanufacturing Technician Name Role Phone Angel Cottrell DO Primary Care Provider Nasrin vailable Encounter Details Date Type Department Care Team ([facility] Contact Info) Description 12/12/2020 Orders Only [facility] Oncology and [facility] [address] [facility] [address] [place] [address] [facility] [place] Chronic anemia Social History Tobacco Use Types [...] Description 12/26/2024 1:00 PM CDT Office Visit [facility] Oncology and Hematology [facility] [address] [place] [address] Gabo Jiang MD [address] [facility] [address] [place] [address] documented as of this encounter Visit Diagnoses Diagnosis Chronic anemia Anemia, unspecified documented in this encounter Care Teams Downstream Biomanufacturing Technician Relationship Specialty Start Date End Date Angel Cottrell DO NO ADDRESS ON FILE PCP - General Family Practice 12/03/20 08/03/21 documented as of this encounter
--- OUTSIDE RECORDS SUMMARY | 2024-07-02 20:32 | XMS_ITS | Encounter Summary ---
Author Organization [facility] Address [address] [place] [address] Care Team Providers Care Reception Clerk Name Role Phone Wiley Causey MD Primary Care Provider [phone] [phone] Reason for Visit * Reason Comments Follow Up * Eval and Treat (Routine) - Closed Specialty Diagnoses / Procedures Referred By Contsabra t Referred To Contact Oncology Diagnoses Anemia, unspecified Procedures Office visit level 3-5 Wiley Causey MD [address] [place] [address] [facility] Oncology And Hematology Ed[address] [place] [address] Referral ID Status Reason Start Date Expiration Date Visits Re quested Visits Authorized [id number] Closed 01/19/2022 07/18/2022 6 6 Encounter Details Date Type Department Care Team (Late st Contact Info) Description 04/20/2022 2:45 PM CDT Office Visit [facility] Oncology and Hematology - Edil [address] [place] [address] Gabo Jiang MD [address] [facility] [address] [place] [address] Chronic anemia (Primary Dx) Social History Tobacco Use Types Packs/Day Years Used Date Smoking Tobacco: Former Cigarettes 2 25 1 2 - 2006 Smokeless Tobacco: Never Alcohol [...] suspected to have Coronavirus/COVID-19? No / Unsure 04/20/2022 2:36 PM CDT documented as of this encounter Last Filed Vital Signs Vital Sign Reading Time Taken Comments Blood Pressure 145/82 04/20/2022 2:54 PM CDT Pulse 98 04/20/2022 2:54 PM CDT Temperature 36.6 ??C (97.9 ??F) 04/20/2022 2:54 PM CD T Respiratory Rate - - Oxygen Saturation 98% 04/20/2022 2:54 PM CDT Inhaled Oxygen Concentration - - Weight 91.2 kg (201 lb) 04/20/2022 2:54 PM CDT Height 157.5 cm (5' 2 ) 04/20/2022 2:54 PM CDT Body Mass Index 36.76 04/20/2022 2:54 PM CDT documented in this encounter Progress Notes * Gabo Jiang MD - 04/20/2022 3:10 PM CDT HEMATOLOGY / ONCOLOGY PROGRESS NOTE Patient Identification: Name: Edith Mayo Age: 72 y.o. Sex: female : 1950 DIAGNOSIS Multifactorial anemia Vitamin B12 deficiency Chronic kidney stage III disease CURRENT TREATMENT B12 1 mcg daily TREATMENT HISTORY Biweekly vitamin B12 injection started on December 30, 2020. Patient received last monthly B12 injection on November 24, 2021. Further injections were discontinued due to insurance. SUBJECTIVE Patient came into the office for follow-up visit. She continues to have tiredness and fatigue. Denies any bleeding and bruising. Weight and appetite stable. No other new complaints. Review of system Constitutional: denies fevers, sweats, complain of tiredness and fatigue HEENT: denies sinus congestion, [...] point review system was reviewed and as above Objective: Vital signs in last 24 hours: [...] 87.6 platelet 206 white blood cell 11.4 Assessment: Plan: Patient Active Problem List Diagnosis Date Noted Stage 3b chronic kidney disease 12/03/2020 Chronic anemia 12/03/2020 Other dietary vitamin B12 deficiency anemia 12/03/2020 Multifactorial anemia. This is secondary to anemia of chronic kidney stage III disease, iron deficiency and vitamin B12 deficiency. Labs noted. Hemoglobin remained stable. Iron level remains low. I will increase oral iron to twice a day along with vitamin C daily. No need for Procrit injection. Vitamin B12 deficiency. B12 level remains low. She is taking vitamin B12 1 mg daily. She will startvitamin B12 1 mg monthly injections at home. Chronic kidney stage III disease. Stable. Type 2 diabetes. Patient is on Amaryl and Trulicity. She is stable. Follow-up in 3 months. TOBACCO COUNSELING She is not a tobacco user. 04/20/2022 Gabo Jiang MD documented in this encounter Plan of Treatment Upcoming Encounters Date Type Department Care Team (Late st Contact Info) Description 12/26/2024 1:00 PM CDT Office Visit [facility] Oncology and Hematology [facility] [address] [place] [address] [address] [place] [address] Gabo Jiang MD [address] [facility] [address] [place] [address] Scheduled Orders Name Type Priority Associated Diagnoses Orde r Schedule CBC WITH DIFFERENTIAL Lab Stat Chronic anemia Expected: 07/13/2022, Expires: 04/20/2023 BASIC METABOLIC PANEL Lab Stat Chronic anemia Expected: 07/13/2022, Expires: 04/20/2023 documented as of this encounter Visit Diagnoses Diagnosis Chronic anemia- Primary Anemia, unspecified documented in this encounter Care Teams Reception Clerk Relationship Specialty Start Date End Date Wiley Causey MD PCP - General Family Practice 08/04/21 documented as of this encounter
--- OUTSIDE RECORDS SUMMARY | 2024-07-02 20:32 | XMS_ITS | Encounter Summary ---
Author Organization [facility] SHAINADalradian Resources [facility] Address [address] [place] [address] Care Team Providers Care Rn Gynecology Name Role Phone Wiley Causey MD Primary Care Provider [phone] [phone] Encounter Details Date Type Department Care Team ([facility] Contact Info) Description 10/28/2021 Orders Only [facility]3] Oncology and Hematology Ed[place] [address] [place] [address] [place] Chronic anemia Social History Tobacco Use Types [...] have Coronavirus / COVID-19? No / Unsure 10/27/2021 10:25 AM CDT documented as of this encounter Plan of Treatment Upcoming Encounters Date Type Department Care Team ([facility] Contact Info) Description 12/26/2024 1:00 PM CDT Office Visit [facility]3] Oncology and Hematology - Edil [address] [place] [address] Gabo Jiang MD [address] [facility] [address] [place] [address] documented as of this encounter Visit Diagnoses Diagnosis Chronic anemia Anemia, unspecified documented in this encounter Care Teams Rn Gynecology Relationship Specialty Start Date End Date Wiley Causey MD PCP - General Family Practice 08/04/21 documented as of this encounter
--- OUTSIDE RECORDS SUMMARY | 2024-07-02 20:32 | XMS_ITS | Encounter Summary ---
Author Organization [facility] DELISAISVWorld [facility] Address [address] [place] [address] Care Team Providers Care Water Service Supervisor Name Role Phone Angel Cottrell Elida GARCIA Primary Care Provider Nasrin vailable Encounter Details Date Type Department Care Team (Late Contact Info) Description 12/10/[address] [facility] Oncology and Hematology [facility] [address] [place] [address] Gabo Jiang MD [facility] [place] [address] Chronic anemia Social History Tobacco Use [...] 12/26/2024 1:00 PM CDT Office Visit [facility] Oncology and Hematology [facility] [address] [place] [address] Gabo Jiang MD [address] [place] [address] documented as of this encounter Visit Diagnoses Diagnosis Chronic anemia Anemia, unspecified documented in this encounter Care Teams Water Service Supervisor Relationship Specialty Start Date End Date Angel Cottrell DO NO ADDRESS ON FILE PCP - General Family Practice 12/03/20 08/03/21 documented as of this encounter
--- OUTSIDE RECORDS SUMMARY | 2024-07-02 20:32 | XMS_ITS | Encounter Summary ---
Author Organization [facility] Address [address] [facility] Attn: Epic Prelude ADT MARYAM MARTINES [address] Care Team Providers Care Monomer Recovery Supervisor Name Role Phone Angel Cottrell DO Primary Care Provider Nasrin vailable Encounter Details Date Type Department Care Team (Latest Contact Info) Description 12/16/2020 Travel Social History Tobacco Use Types Packs/Day Years Used Date Smoking Tobacco: Former Cigarettes 2 2006 Smokeless Tobacco: Never Alcohol Use Standard [...] have Coronavirus / COVID-19? No / Unsure 12/16/2020 3:27 PM CDT documented as of this encounter Plan of Treatment Upcoming Encounters Date Type Department Care Team (Late st Contact Info) Description 12/26/2024 1:00 PM CDT Office Visit [facility] Oncology and Hematology - [place] [address] [facility] [address] [place] [address] Gabo Jiang MD [address] [facility] [address] [place] [address] documented as of this encounter Visit Diagnoses Not on filedocumented in this encounter Care Teams Monomer Recovery Supervisor Relationship Specialty Start Date End Date Angel Cottrell DO NO ADDRESS ON FILE PCP - General Family Practice 12/03/20 08/03/21 documented as of this encounter
--- OUTSIDE RECORDS SUMMARY | 2024-07-02 20:32 | XMS_ITS | Encounter Summary ---
Author Organization [facility] [employer] [facility] Address [address] [place] [address] Care Team Providers Care Club Car Attendant Name Role Phone Angel Cottrell DO Primary Care Provider Nasrin vailable Encounter Details Date Type Department Care Team (Late Contact Info) Description 02/18/2021 Orders Only [facility] Oncology and Hematology - [place] [address] [place] [address] [place] Chronic anemia Social [...] Description 12/26/2024 1:00 PM CDT Office Visit [facility] Oncology and Hematology - [place] [address] [place] [address] Gabo Jiang MD [address] [facility] [address] [place] [address] documented as of this encounter Visit Diagnoses Diagnosis Chronic anemia Anemia, unspecified documented in this encounter Care Teams Club Car Attendant Relationship Specialty Start Date End Date Angel Cottrell DO NO ADDRESS ON FILE PCP - General Family Practice 12/03/20 08/03/21 documented as of this encounter
--- OUTSIDE RECORDS SUMMARY | 2024-07-02 20:32 | XMS_ITS | Encounter Summary ---
Author Organization [facility] Address [address] [facility] Attn: Epic Prelude ADT MARYAM MARTINES [address] Care Team Providers Care Conservation Policy Analyst Name Role Phone Angel Cottrell DO Primary Care Provider Nasrin vailable Encounter Details Date Type Department Care Team (Latest Contact Info) Description 02/24/2021 Travel Social History Tobacco Use Types Packs/Day [...] Center Oncology and Hematology - [place] [address] [facility] [address] [place] [address] Gabo Jiang MD [address] [facility] [address] [place] [address] documented as of this encounter Visit Diagnoses Not on filedocumented in this encounter Care Teams Conservation Policy Analyst Relationship Specialty Start Date End Date Angel Cottrell DO NO ADDRESS ON FILE PCP - General Family Practice 12/03/20 08/03/21 documented as of this encounter
--- OUTSIDE RECORDS SUMMARY | 2024-07-02 20:32 | XMS_ITS | Encounter Summary ---
Author Organization [facility] Address [address] [facility] Attn: Epic Prelude ADT MARYAM MARTINES [address] Care Team Providers Care Robotic Welder Name Role Phone Wiley Causey MD Primary Care Provider [phone] [phone] Encounter Details Date Type Department Care Team (Latest Contact Info) Description 04/20/2022 Travel Social History Tobacco Use Types Packs/Day [...] [facility] [place] [address] [facility] [address] [place] [address] Gabo Jiang MD [address] [facility] [address] [place] [address] documented as of this encounter Visit Diagnoses Not on filedocumented in this encounter Care Teams Robotic Welder Relationship Specialty Start Date End Date Wiley Causey MD PCP - General Family Practice 08/04/21 documented as of this encounter
--- OUTSIDE RECORDS SUMMARY | 2024-07-02 20:32 | XMS_ITS | Encounter Summary ---
Author Organization [facility] [employer] [facility] Address [address] [place] [address] Care Team Providers Care Celery Wrapper Name Role Phone Angel Cottrell DO Primary Care Provider Nasrin vailable Encounter Details Date Type Department Care Team (Late Contact Info) Description 02/19/2021 Orders Only [facility] Oncology and Hematology - [place] [address] [place] [address] [place] Chronic anemia Social [...] Description 12/26/2024 1:00 PM CDT Office Visit [facility] Oncology and Hematology - [place] [address] [place] [address] Gabo Jiang MD [address] [facility] [address] [place] [address] documented as of this encounter Visit Diagnoses Diagnosis Chronic anemia Anemia, unspecified documented in this encounter Care Teams Celery Wrapper Relationship Specialty Start Date End Date Angel Cottrell DO NO ADDRESS ON FILE PCP - General Family Practice 12/03/20 08/03/21 documented as of this encounter
--- OUTSIDE RECORDS SUMMARY | 2024-07-02 20:32 | XMS_ITS | Encounter Summary ---
Author Organization [facility] Address [address] [facility] Attn: Epic Prelude ADT MARYAM MARTINES [address] Care Team Providers Care Civil Estimator Name Role Phone Wiley Causey MD Primary Care Provider [phone] Encounter Details Date Type Department Care Team (Latest Contact Info) Description 10/27/2021 Travel Social History Tobacco Use Types Packs/Day [...] Description 12/26/2024 1:00 PM CDT Office Visit [facility] Oncology and Hematology - [place] [address] [place] [address] [address] [place] [address] Gabo Jiang MD [address] [facility] [address] [place] [address] documented as of this encounter Visit Diagnoses Not on filedocumented in this encounter Care Teams Civil Estimator Relationship Specialty Start Date End Date Wiley Causey MD PCP - General Family Practice 08/04/21 documented as of this encounter
--- OUTSIDE RECORDS SUMMARY | 2024-07-02 20:32 | XMS_ITS | Encounter Summary ---
Author Organization [facility] Address [address] [facility] Attn: Epic Prelude ADT MARYAM MARTINES [address] Care Team Providers Care Record Filing Clerk Name Role Phone Wiley Causey MD Primary Care Provider [phone] [phone] Encounter Details Date Type Department Care Team (Latest Contact Info) Description 01/19/2022 Travel Social History Tobacco Use Types Packs/Day [...] suspected to have Coronavirus/COVID-19? No / Unsure 01/19/2022 9:01 AM CDT documented as of this encounter Plan of Treatment Upcoming Encounters Date Type Department Care Team (Late st Contact Info) Description 12/26/2024 1:00 PM CDT Office Visit [facility] Oncology and Hematology - [place] [address] [facility] [address] [place] [address] Gabo Jiang MD [address] [facility] [address] [place] [address] documented as of this encounter Visit Diagnoses Not on filedocumented in this encounter Care Teams Record Filing Clerk Relationship Specialty Start Date End Date Wiley Causey MD PCP - General Family Practice 08/04/21 documented as of this encounter
--- OUTSIDE RECORDS SUMMARY | 2024-07-02 20:32 | XMS_ITS | Encounter Summary ---
Author Organization [facility] Address [address] [place] [address] Care Team Providers Care Turntable Operator Name Role Phone Wiley Causey MD Primary Care Provider [phone] [phone] Reason for Visit * Reason Comments Follow Up 3 month f/u with B12 injection and labs * Eval and Treat (Routine) - Closed Specialty Diagnoses / Procedures Referred By Contac t Referred To Contact Oncology Diagnoses Iron deficiency anemia, unspecified [id number] Procedures office visit level 3-5 Angel Cottrell DO NO ADDRESS ON FILE Gabo Jiang MD [address] [place] [address] Referral ID Status Reason Start Date Expiration Date Visits Re quested Visits Authorized [id number] Closed 11/14/2020 11/10/2021 12 12 Encounter Details Date Type Department Care Team (Late st Contact Info) Description 08/04/2021 10:45 AM COMMUNITY RELATIONS ADVISOR Office Visit [facility] Oncology and Hematology - [place] [facility] [address] [place] [address] Gabo Jiang MD [address] [place] [address] Chronic anemia (Primary Dx) Social History Tobacco Use Types Packs/Day Years Used Date Smoking Tobacco: Former Cigarettes 2 25 1 - 2006 Smokeless Tobacco: Never Alcohol Use [...] COVID-19? No / Unsure 08/04/2021 10:36 AM COMMUNITY RELATIONS ADVISOR documented as of this encounter Last Filed Vital Signs Vital Sign Reading Time Taken Comments Blood Pressure 130/60 08/04/2021 10:46 AM COMMUNITY RELATIONS ADVISOR Pulse 95 08/04/2021 10:46 AM COMMUNITY RELATIONS ADVISOR Temperature 36.9 ??C (98.5 ??F) 08/04/2021 1 0:46 AM COMMUNITY RELATIONS ADVISOR Respiratory Rate - - Oxygen Saturation 98% 08/04/2021 10: 46 AM COMMUNITY RELATIONS ADVISOR Inhaled Oxygen Concentration - - Weight 98.8 kg (217 lb 14.4 oz) 022 10:46 AM COMMUNITY RELATIONS ADVISOR Height 157.5 cm (5' 2 ) 08/04/2021 10:4 6 AM COMMUNITY RELATIONS ADVISOR Body Mass Index 39.85 08/04/2021 10:46 AM COMMUNITY RELATIONS ADVISOR documented in this encounter Progress Notes * Gabo Jiang MD - 08/04/2021 3:43 PM CST HEMATOLOGY / ONCOLOGY PROGRESS NOTE Patient Identification: Name: Edith Mayo Age: 71 y.o. Sex: female : 1950 DIAGNOSIS Multifactorial anemia Vitamin B12 deficiency Chronic kidney stage III disease CURRENT TREATMENT Biweekly vitamin B12 injection started on December 30, 2020 TREATMENT HISTORY SUBJECTIVE Patient came into the office for follow-up visit. She is feeling much better and more stronger. Denies any bleeding and bruising. Weight and appetite stable. No other new complaint. Review of system Constitutional: denies fevers, sweats, improvement in tiredness and fatigue HEENT: denies sinus congestion, [...] 10.4 MCV 93.7 platelet 183,000 creatinine 2.3 Assessment: Plan: Patient Active Problem List Diagnosis Date Noted ??? Stage 3b chronic kidney disease 12/03/2020 ??? Chronic anemia 12/03/2020 ??? Other dietary vitamin B12 deficiency anemia 12/03/2020 Multifactorial anemia. This is secondary to anemia of chronic kidney stage III disease, iron deficiency and vitamin B12 deficiency. Labs noted. Hemoglobin low but is stable. She will continue oral iron once a day with vitamin C 500mg daily. We will see her back in 3 months. Vitamin B12 deficiency. She will continue monthly B12 injection. B12 level is pending from today. Chronic kidney stage III disease. This has been managed by Dr. Jerez. No need for Procrit injectionat this time. Type 2 diabetes. Stable on Trulicity and Amaryl. Follow-up in 3 months. TOBACCO COUNSELING She is not a tobacco user. 08/04/2021 Gabo Jiang MD UNITY RELATIONS ADVISOR documented in this encounter Plan of Treatment Upcoming Encounters Date Type Department Care Team (Late st Contact Info) Description 12/26/2024 1:00 PM CDT Office Visit [facility] Oncology and Hematology - [place] [address] [facility] [address] [place] [address] Gabo Jiang MD [address] [facility] [address] [place] [address] Scheduled Orders Name Type Priority Associated Diagnoses Orde r Schedule CBC WITH DIFFERENTIAL Lab Stat Chronic anemia Expected: 10/27/2021, Expires: 08/04/2022 FERRITIN Lab Routine Chronic anemia Expected: 10/27/2021, Expires: 08/04/2022 IRON, TIBC, AND PERCENT SATURATION Lab Routine Chronic anemia Expected: 10/27/2021, Expires: 08/04/2022 VITAMIN B12 AND FOLATE Lab Routine Chronic anemia Expected: 10/27/2021, Expires: 08/04/2022 BASIC METABOLIC PANEL Lab Stat Chronic anemia Expected: 10/27/2021, Expires: 08/04/2022 documented as of this encounter Visit Diagnoses Diagnosis Chronic anemia- Primary Anemia, unspecified documented in this encounter Care Teams Turntable Operator Relationship Specialty Start Date End Date Wiley Causey MD PCP - General Family Practice 08/04/21 documented as of this encounter
--- OUTSIDE RECORDS SUMMARY | 2024-07-02 20:32 | XMS_ITS | Encounter Summary ---
Author Organization [facility] [employer] Address [address] [address] Phone Care Team Providers Care Shipping And Receiving Supervisor Name Role Phone Wiley Causey MD Primary Care Provider [phone] Encounter Details Date Type Department Care Team (Late st Contact Info) Description 02/24/2022 3:30 PM CDT Office Visit [facility] Nephrology and Hypertension [address] [place] [address], [address] [place] [address] Brisa Schafer MD [address] [facility], [address] [place] [address] Chronic kidney disease stage 4 (CMS-HCC); Diabetes mellitus with renal manifestations (CMS-HCC); Benign hypertension with chronic kidney disease; Nephrolithiasis Social History Tobacco Use Types Packs/Day Years Used Date Smoking Tobacco: Former Cigarettes 2.5 50 Smokeless Tobacco: Never Alcohol Use Standard Drinks/Week Comments Yes 0 (1 standard drink = 0.6 oz pur e alcohol) rare use Sex and Gender Information Value Date Recorded Sex Assigned at Not on file Gender Identity Not on file Sexual Orientation Not on file documented as of this encounter Last Filed Vital Signs Vital Sign Reading Time Taken Comments Blood Pressure 134/76 02/24/2022 3:49 PM CDT Pulse - - Temperature 36.5 ??C (97.7 ??F) 02/24/2022 3:49 PM CD T Respiratory Rate 18 02/24/2022 3:49 PM CDT Oxygen Saturation - - Inhaled Oxygen Concentration - - Weight 92.1 kg (203 lb) 02/24/2022 3:49 PM CDT Height 157.5 cm (5' 2 ) 02/24/2022 3:49 PM CDT Body Mass Index 37.13 02/24/2022 3:49 PM CDT documented in this encounter Progress Notes * Brisa Schafer MD - 02/24/2022 3:30 PM CDT FOLLOW-UP OFFICE VISIT Patient: Edith Mayo Birthdate: 1950 PCP: Wiley Causey MD Visit Date: 02/24/2022 INTERIM HISTORY Edith Mayo here for hospital follow-up regarding her chronic kidney disease. . I first met the patient when she was admitted with acute kidney injury on top of her known chronic kidney disease secondary to a combination of obstructive uropathy, prerenal factors along with concomitant NSAID use likely worsened by her continued use of FRANCO-I in the setting of infection/sepsis. Her creatinine was ~ 6.7mg/dl on admission in early September 2021 but improved back to baseline with interventions to date (ureteral stenting, IVF, IV antibiotics...etc). . Since last seen, she appears to be doing reasonably well. No apparent distress or concerns voiced at this time. No issues or problems to report on this clinic visit. Past medical history, social history and family history has not changed since last seen. ALLERGIES Allergen Reactions ??? Statins Hives ??? Tramadol Hives ??? Budesonide-Formoterol Fumarate Muscle spasms MEDICATIONS Current Outpatient Medications: ??? Accu-Chek Iwona Plus test strip, USE 1 STRIP TO TEST BLOOD SUGAR ONCE DAILY DIRECTED, Disp: , Rfl: ??? Accu-Chek Softclix Lancets lancets, USE 1 LANCET TO CHECK BLOOD SUGAR ONCE DAILY, Disp: , Rfl: ??? allopurinol (ZYLOPRIM) 300 MG tablet, Take 300 mg by mouth 1 (one) time each day, Disp: , Rfl: ??? amLODIPine (NORVASC) 5 MG tablet, Take 5 mg by mouth 1 (one) time each day, Disp: , Rfl: ??? betamethasone valerate (VALISONE) 0.1 % cream, Apply topically, Disp: , Rfl: ??? Cyanocobalamin 1000 MCG capsule, Take 1 capsule by mouth, Disp: , Rfl: ??? Diclofenac Sodium 1 % gel, , Disp: , Rfl: ??? Dulaglutide (Trulicity) 0.75 MG/0.5ML solution pen-injector, INJECT 0.75 MG UNDER THE SKIN ONCEWEEKLY, Disp: , Rfl: ??? ergocalciferol (VITAMIN D-2) 1.25 MG (45698 UT) capsule, Take 50,000 Units by mouth, Disp: , Rfl: ??? glimepiride (AMARYL) 2 MG tablet, Take 2 mg by mouth 1 (one) time each day with breakfast, Disp: , Rfl: ??? lisinopril (PRINIVIL) 40 MG tablet, , Disp: , Rfl: ??? Magnesium Oxide 400 MG capsule, Take 400 mg by mouth 2 times daily, Disp: , Rfl: ??? omeprazole (PriLOSEC) [address] capsule, Take 40 mg by mouth 1 (one) time each day, Disp: , Rfl: ??? oxybutynin (DITROPAN) 5 MG tablet, TAKE 1 TABLET BY MOUTH THREE TIMES DAILY NEEDED FOR BLADDER SPASM, Disp: , Rfl: ??? Ozempic, 1 MG/DOSE, 4 MG/3ML solution pen-injector, INJECT 1MG UNDER THE SKIN ONCE WEEKLY, Disp: , Rfl: ??? potassium citrate (UROCIT-K) 10 MEQ (1080 MG) CR tablet, Take 20 mEq by mouth 3 (three) times aday, Disp: , Rfl: ??? predniSONE (DELTASONE) 1 MG tablet, Take 4 mg by mouth 1 (one) time each day, Disp: , Rfl: ??? topiramate (TOPAMAX) 25 MG tablet, Take 25 mg by mouth daily, Disp: , Rfl: REVIEW OF SYSTEMS Constitutional: No fever, weight loss or gain, no fatigue. No loss of appetite. Cardiovascular: No chest pain. No Orthopnea, PND. Respiratory: No cough, no sputum production, no SOB or CARRANZA. : No dysuria or gross hematuria. No frequency or urgency. No nocturia. Skin: No rash or itching. VITALS BP 134/76 (BP Location: Right arm, Patient Position: Sitting) Temp 97.7 ??F (36.5 ??C) Resp 18 Ht 5' 2 (1.575 m) Wt 203 lb (92.1 kg) BMI 37.13 kg/m?? BSA 2.01 m?? PHYSICAL EXAM General: Comfortable and in no acute distress Cardiovascular: Normal S1, S2; no rub Respiratory: Clear bilaterally Abdominal: Soft, non-tender, non-distended; positive bowel sounds Extremities: No cyanosis, clubbing, or edema Skin: Warm and dry RECENT LABS/IMAGING Lab Results Component Value Date BUN 21 02/11/2022 CREATININE 1.8 02/11/2022 EGFRAA 27 10/27/2021 EGFR 28 02/11/2022 NA 141 02/11/2022 K 3.2 02/11/2022 CL 100 02/11/2022 CO2 29 02/11/2022 CA 9.2 02/11/2022 PHOSPHATE 3.0 02/11/2022 ALBUMIN 4.4 02/11/2022 GLUCOSE 106 02/11/2022 PROTCREATUR 130 02/11/2022 PTH 72.2 02/11/2022 VITD 48.2 02/11/2022 ASSESSMENT 1. Chronic kidney disease stage 4 ([facility]) 2. Diabetes mellitus with renal manifestations ([facility]) 3. Benign hypertension with chronic kidney disease 4. Nephrolithiasis DISCUSSION/PLAN Edith has chronic kidney disease due to her hypertension, diabetes, MADDY, vascular disease and nephrolithiasis. Her baseline creatinine runs ~ 1.8 - 2.3mg/dl in the last year or so. As she was seeing another patent chemist previously, I suspect she has already had an extensive work-up and evaluation with regard to her kidney disease (so I will not repeat one). To help reduce the rate of kidney deterioration: Control BP: follow trend Control DM: monitor A1c Control LDL cholesterol: per PCP (allergic to statins) Control Intact PTH: in range with adequate Vitamin D Use FRANCO/ARB: on lisinopril Low protein diet: will reassess Benefits of slowing renal deterioration reviewed with patient in laymen's terms. Lowering blood pressure, controlling diabetes, and controlling cholesterol reduce insults to the kidney. Low protein diet helps take excess workload off of the kidney. FRANCO/ARB help to decrease pressure in kidney and also decrease hormones that cause scar formation. Blood Pressure for this visit is 134/76. The follow up plan to address blood pressure is follow thetrend. Body mass index is 37.13 kg/m??. Follow up plan to address BMI is diet/exercise as tolerated. Continue current medications Repeat labs prior to next visit Ceasar Schafer MD documented in this encounter Plan of Treatment Not on file documented as of this encounter Procedures Procedure Name Priority Date/Time Associated Diagnosis Comments PTH, INTACT W/ CALCIUM Routine 02/11/2022 VITAMIN D, 1, 25-DIHYDROXY Routine 02/11/2022 TOTAL PROTEIN W/ CREATININE, URINE, RANDOM Routine 02/11/2022 RENAL FUNCTION PANEL (RFP) Routine 02/11/2022 documented in this encounter Results * PTH, Intact w/ Calcium (02/11/2022) PTH, Intact, Serum/Plasma 72.2 ng/L EXTERNAL LAB (NON-INTERFACE D) Historical Provider MD LAB BLOOD ORDERAB LES Performing Organization Address [facility] [employer] Phone Number EXTERNAL LAB (NON-INTERFACED) * Vitamin D, 1, 25-Dihydroxy (02/11/2022) 25-Hydroxyvitam in D2+25-Hydroxyvi tamin D3, Serum/Plasma 48.2 ng/mL EXTERNAL LAB (NON-INTERFACE D) Historical Provider MD LAB BLOOD ORDERAB LES Performing Organization Address [facility]/ZIP Co de Phone Number EXTERNAL LAB (NON-INTERFACED) * Total Protein w/ Creatinine, Urine, Random (02/11/2022) Protein/Creati nine, Urine 130 mg/g creatinine EXTERNAL LAB (NON-INTERFAC ED) Historical Provider MD LAB URINE ORDERAB LES Performing Organization Address [facility] [employer] Phone Number EXTERNAL LAB (NON-INTERFACED) * Renal Function Panel (RFP) (02/11/2022) Albumin, Serum/Plasma 4.4 g/L EXTERNAL LAB (NON-INTERFACE D) Calcium, Serum/Plasma 9.2 mg/dL EXTERNAL LAB (NON-INTERFACE D) Carbon dioxide CO2), total, Serum/Plasma 29 mmol/L EXTERNAL LAB (NON-INTERFACE D) Chloride, Serum/Plasma 100 mmol/L EXTERNAL LAB (NON-INTERFACE D) Creatinine, Serum/Plasma 1.8 mg/dL EXTERNAL LAB (NON-INTERFACE D) Glucose, Serum/Plasma 106 mg/dL EXTERNAL LAB (NON-INTERFACE D) Phosphate, Serum/Plasma 3.0 mg/dL EXTERNAL LAB (NON-INTERFACE D) Potassium, Serum/Plasma 3.2 mmol/L EXTERNAL LAB (NON-INTERFACE D) Sodium, Serum/Plasma 141 mmol/L EXTERNAL LAB (NON-INTERFACE D) Urea nitrogen, Serum/Plasma (BUN) 21 mg/dL EXTERNAL LAB (NON-INTERFACE D) eGFR, non 28 mL/min EXTERNAL LAB (NON-INTERFACE D) Blood (Blood, Venous) Historical Provider LAB BLOOD ORDERAB LES EXTERNAL LAB (NON-INTERFACED) documented in this encounter Visit Diagnoses Diagnosis Chronic kidney disease stage 4 (CMS-HCC) Diabetes mellitus with renal manifestations (CMS-HCC) Benign hypertension with chronic kidney disease Nephrolithiasis documented in this encounter Care Teams Shipping And Receiving Supervisor Relationship Specialty Start Date End Date Wiley Causey MD PCP - General Family Medicine 10/05/21 documented as of this encounter
--- OUTSIDE RECORDS SUMMARY | 2024-07-02 20:32 | XMS_ITS | Encounter Summary ---
Author Organization [facility] [employer] [facility] Address [address] [place] [address] Care Team Providers Care Appetizer Packer Name Role Phone Wiley Causey MD Primary Care Provider [phone] Encounter Details Date Type Department Care Team (Late Contact Info) Description 12/02/2021 Abstract [facility] Oncology and Hematology - [place] [address] [place] [address] Daniel Edwards RN Social History Tobacco Use Types Packs/Day Years [...] Description 12/26/2024 1:00 PM CDT Office Visit [facility] Oncology and Hematology - [place] [address] [place] [address] Gabo Jiang MD [address] [facility] [address] [place] [address] documented as of this encounter Visit Diagnoses Not on filedocumented in this encounter Care Teams Appetizer Packer Relationship Specialty Start Date End Date Wiley Causey MD PCP - General Family Practice 08/04/21 documented as of this encounter
--- OUTSIDE RECORDS SUMMARY | 2024-07-02 20:32 | XMS_ITS | Encounter Summary ---
Author Organization [facility] Address [address] [place] [address] Care Team Providers Care Multimedia Journalist Name Role Phone Wiley Causey MD Primary Care Provider [phone] Reason for Visit * Reason Onset Date Comments Medication Refill 05/05/2022 Encounter Details Date Type Department Care Team ([facility] Contact Info) Description 05/05/2022 Refill [facility] Hematology [facility] [address] [place] [address] Gabo Jiang MD [address] [employer] [address] [place] [address] Social History Tobacco Use Types Packs/Day [...] Office Visit [facility] On[facility] Hematology [facility] [address] [place] [address] Gabo Jiang MD [address] [employer] [address] [place] [address] documented as of this encounter Visit Diagnoses Not on filedocumented in this encounter Care Teams Multimedia Journalist Relationship Specialty Start Date End Date Wiley Causey MD PCP - General Family Practice 08/04/21 documented as of this encounter
--- OUTSIDE RECORDS SUMMARY | 2024-07-02 20:32 | XMS_ITS | Encounter Summary ---
Author Organization [facility] DELISA[facility] Address [address] [address] Care Team Providers Care Travelift Operator Name Role Phone Angel Cottrell Elida GARCIA Primary Care Provider Nasrin vailable Encounter Details Date Type Department Care Team (Late Contact Info) Description 12/11/2020 Orders Only [facility] Oncology and Hematology [facility] [address] [place] [address] Gabo Jiang MD [facility] [employer] [address] [place] [address] Chronic anemia Social History Tobacco Use [...] Description 12/26/2024 1:00 PM CDT Office Visit [facility] Oncology and Hematology [facility] [address] [place] [address] Gabo Jiang MD [address] [employer] [address] [place] [address] documented as of this encounter Visit Diagnoses Diagnosis Chronic anemia Anemia, unspecified documented in this encounter Care Teams Travelift Operator Relationship Specialty Start Date End Date Angel Cottrell DO NO ADDRESS ON FILE PCP - General Family Practice 12/03/20 08/03/21 documented as of this encounter
--- OUTSIDE RECORDS SUMMARY | 2024-07-02 20:32 | XMS_ITS | Encounter Summary ---
Author Organization [facility] DEL[facility]AM[facility] [facility] Address [address] [place] [address] Care Team Providers Care Student Teacher Name Role Phone Angel Cottrell DO Primary Care Provider Nasrin vailable Encounter Details Date Type Department Care Team (Late Contact Info) Description 05/19/2021 Orders Only [facility] Oncology and Hematology - [place] [address] [place] [address] [place] Chronic anemia Social [...] PM CDT Office Visit [facility] Oncology and Hematology - [place] [address] [place] [address] Gabo Jiang MD [address] [facility] [address] [place] [address] documented as of this encounter Visit Diagnoses Diagnosis Chronic anemia Anemia, unspecified documented in this encounter Care Teams Student Teacher Relationship Specialty Start Date End Date Angel Cottrell DO NO ADDRESS ON FILE PCP - General Family Practice 12/03/20 08/03/21 documented as of this encounter
--- OUTSIDE RECORDS SUMMARY | 2024-07-02 20:32 | XMS_ITS | Encounter Summary ---
Author Organization [facility] Address [address] [facility] Attn: Epic Prelude ADT [place] [address] Care Team Providers Care Museum Librarian Name Role Phone Wiley Causey MD Primary Care Provider [phone] Encounter Details Date Type Department Care Team (Latest Contact Info) Description 08/04/2021 Travel Social History Tobacco Use Types Packs/Day [...] COVID-19? No / Unsure 08/04/2021 10:36 AM CRATE ICER documented as of this encounter Plan of Treatment Upcoming Encounters Date Type Department Care Team (Late st Contact Info) Description 12/26/2024 1:00 PM CDT Office Visit [facility] Oncology and Hematology - [place] [address] [place] [address] [address] [place] [address] Gabo Jiang MD [address] [facility] [address] [place] [address] documented as of this encounter Visit Diagnoses Not on filedocumented in this encounter Care Teams Museum Librarian Relationship Specialty Start Date End Date Wiley Causey MD PCP - General Family Practice 08/04/21 documented as of this encounter
--- OUTSIDE RECORDS SUMMARY | 2024-07-02 20:32 | XMS_ITS | Encounter Summary ---
Author Organization [facility] Address [address] [place] [address] Care Team Providers Care Conservation Scientist Name Role Phone Wiley Causey MD Primary Care Provider [phone] [phone] Reason for Visit * Reason Comments Follow Up Follow up labs * Eval and Treat (Routine) - Closed Specialty Diagnoses / Procedures Referred By Contsabra t Referred To Contact Oncology Diagnoses Anemia, unspecified Procedures Office visit level 3-5 Wiley Causey MD [address] [place] [address] [facility] Oncology And Hematology [place] [address] [place] [address] Referral ID Status Reason Start Date Expiration Date Visits Re quested Visits Authorized [id number] Closed 01/19/2022 07/18/2022 6 6 Encounter Details Date Type Department Care Team (Late st Contact Info) Description 01/19/2022 9:15 AM CDT [facility] Visit [facility] Oncology and Hematology - [place] [address] [place] [address] Gabo Jiang MD [address] [facility] [address] [place] [address] Chronic anemia (Primary Dx) Social [...] AM CDT documented as of this encounter Last Filed Vital Signs Vital Sign Reading Time Taken Comments Blood Pressure 137/60 01/19/2022 9:15 AM CDT Pulse 93 01/19/2022 9:15 AM CDT Temperature 36.3 ??C (97.4 ??F) 01/19/2022 9:15 AM CD T Respiratory Rate - - Oxygen Saturation 96% 01/19/2022 9:15 AM CDT Inhaled Oxygen Concentration - - Weight 93 kg (205 lb) 01/19/2022 9:15 AM CDT Height 157.5 cm (5' 2 ) 01/19/2022 9:15 AM CDT Body Mass Index 37.49 01/19/2022 9:15 AM CDT documented in this encounter Progress Notes * Gabo Jiang MD - 01/19/2022 9:49 AM CDT HEMATOLOGY / ONCOLOGY PROGRESS NOTE Patient [...] She denies any excessive tiredness and fatigue. She denies any bleeding and bruising. Weight and appetite are stable. No other new complaints. Review of system Constitutional: denies fevers, sweats, complain of mild tiredness and fatigue HEENT: denies sinus congestion, [...] 47 iron saturation 14% vitamin B12 415 Assessment: Plan: Patient Active Problem List Diagnosis Date Noted ??? Stage 3b chronic kidney disease 12/03/2020 ??? Chronic anemia 12/03/2020 ??? Other dietary vitamin B12 deficiency anemia 12/03/2020 Multifactorial anemia. This is secondary to anemia of chronic kidney stage III disease, iron deficiency and vitamin B12 deficiency. Labs noted that showed slight improvement in hemoglobin. She will continue oral iron once a day with vitamin C daily. No need for Procrit injection. Vitamin B12 deficiency. B12 level has improved slightly. She will stop B12 injection due to insurance not an approval. At this point she was started vitamin B12 1 mg daily. We will repeat labs again in 3 months. Chronic kidney stage III disease. She will continue to follow-up with Dr. Jerez. Type 2 diabetes. Patient is on Amaryl and Trulicity. She is stable. Follow-up in 3 months. TOBACCO COUNSELING She is not a tobacco user. 01/19/2022 Gabo Jiang MD documented in this encounter Plan of Treatment Upcoming Encounters Date Type Department Care Team (Late st Contact Info) Description 12/26/2024 1:00 PM CDT [facility] Visit [facility] Oncology and Hematology [facility] [address] [place] [address] [facility] [address] [place] [address] Gabo Jiang MD [address] [facility] [address] [place] [address] documented as of this encounter Visit Diagnoses Diagnosis Chronic anemia- Primary Anemia, unspecified documented in this encounter Care Teams Conservation Scientist Relationship Specialty Start Date End Date Wiley Causey MD PCP - General Family Practice 08/04/21 documented as of this encounter
--- OUTSIDE RECORDS SUMMARY | 2024-07-02 20:32 | XMS_ITS | Encounter Summary ---
Author Organization [facility] Address [address] [place] [address] Care Team Providers Care Circle Cutting Saw Operator Name Role Phone Angel Cottrell DO Primary Care Provider Nasrin vailable Encounter Details Date Type Department Care Team (Late Contact Info) Description 05/20/2021 Orders Only [facility] Oncology and Hematology - [place] [address] [place] [address] [place] Chronic anemia Social [...] Description 12/26/2024 1:00 PM CDT Office Visit [facility] Oncology and Hematology - [place] [address] [place] [address] Gabo Jiang MD [address] [facility] [address] [place] [address] documented as of this encounter Visit Diagnoses Diagnosis Chronic anemia Anemia, unspecified documented in this encounter Care Teams Circle Cutting Saw Operator Relationship Specialty Start Date End Date Angel Cottrell DO NO ADDRESS ON FILE PCP - General Family Practice 12/03/20 08/03/21 documented as of this encounter
--- OUTSIDE RECORDS SUMMARY | 2024-07-02 20:32 | XMS_ITS | Encounter Summary ---
Author Organization [facility] [email or web address] Address [address] [place] [address] Care Team Providers Care Pantograph Setter Name Role Phone Wiley Causey MD Primary Care Provider [phone] Reason for Visit * Reason Onset Date Comments Medication Refill 05/04/2022 Encounter Details Date Type Department Care Team ([facility] Contact Info) Description 05/04/2022 Refill [facility] Oncology and Hematology [place] [address] [place] [address] Gabo Jiang MD [address] [facility] [address] [place] [address] Other dietary vitamin B12 deficiency anemia; Chronic anemia Social History Tobacco Use Types [...] Upcoming Encounters Date Type Department Care Team ([facility] Contact Info) Description 12/26/2024 1:00 PM CDT Office Visit [facility] Oncology and Hematology [place] [address] [place] [address] Gabo Jiang MD [address] [facility] [address] [place] [phone] documented as of this encounter Visit Diagnoses Diagnosis Other dietary vitamin B12 deficiency anemia Chronic anemia Anemia, unspecified documented in this encounter Care Teams Pantograph Setter Relationship Specialty Start Date End Date Wiley Causey MD PCP - General Family Practice 08/04/21 documented as of this encounter
--- OUTSIDE RECORDS SUMMARY | 2024-07-02 20:32 | XMS_ITS | Clinical Summary ---
Author Organization [facility] Address [address] [place] [address] Phone Care Team Providers Care Purification Operator Name Role Phone Wiley Causey MD Primary Care Provider [phone] Allergies Active Allergy Reactions Criticality Noted Date Comments Budesonide-Formoterol Fumarate muscle pain,Other (see comments) Medium 09/15/2018 Muscle spasms Muscle spasms Statins Hives,Other (see comments) High 12/03/2020 Other reaction(s): Other (See Comments) Tramadol Hives,Other (see comments) High 09/15/2018 Medications Medication Sig Dispensed Refills Start Date End Date Status allopurinol (ZYLOPRIM) 300 MG tablet Take 300 mg by mouth 1 (one) time each day 10/20/2021 Active amLODIPine (NORVASC) 5 MG tablet Take 5 mg by mouth 1 (one) time each day 10/14/2021 Active betamethasone valerate (VALISONE) 0.1 % cream Apply topically Active Cyanocobalamin 1000 MCG capsule Take 1 capsule by mouth 08/19/2020 Active Dulaglutide (Trulicity) 0.75 MG/0.5ML solution pen-injector INJECT 0.75 MG UNDER THE SKIN ONCE WEEKLY 05/28/2021 Active Accu-Chek Iwona Plus test strip USE 1 STRIP TO TEST BLOOD SUGAR ONCE DAILY DIRECTED 09/23/2021 Active Accu-Chek Softclix Lancets lancets USE 1 LANCET TO CHECK BLOOD SUGAR ONCE DAILY 09/25/2021 Active lisinopril (PRINIVIL) 40 MG tablet 09/15/2021 Active Magnesium Oxide 400 MG capsule Take 400 mg by mouth 2 times daily Active omeprazole (PriLOSEC) [address] capsule Take 40 mg by mouth 1 (one) time each day 10/26/2021 Active potassium citrate (UROCIT-K) 10 MEQ (1080 MG) CR tablet Take 20 mEq by mouth 3 (three) times a day 09/23/2021 Active predniSONE (DELTASONE) 1 MG tablet Take 4 mg by mouth 1 (one) time each day 10/16/2021 Active Ozempic, 1 MG/DOSE, 4 MG/3ML solution pen-injector INJECT 1MG UNDER THE SKIN ONCE WEEKLY 10/27/2021 Active topiramate (TOPAMAX) 25 MG tablet Take 25 mg by mouth daily 08/04/2021 Active Diclofenac Sodium 1 % gel 12/31/2021 Active oxybutynin (DITROPAN) 5 MG tablet TAKE 1 TABLET BY MOUTH THREE TIMES DAILY NEEDED FOR BLADDER SPASM 11/29/2021 Active glimepiride (AMARYL) 2 MG tablet Take 2 mg by mouth 1 (one) time each day with breakfast 12/31/2021 Active Active Problems Problem Noted Date Diagnosed Date COVID-19 04/21/2021 Chronic anemia 12/03/2020 Other dietary vitamin B12 deficiency anemia 11/15 Stage 3b chronic kidney disease 12/03/2020 Essential hypertension 03/20/2020 Overview (11/04/2021): Last Assessment & Plan: Complicated with CKD Creatinine 1.7- GFR 30 in February/2020 - continue medication and follow up with Public Welfare Director. Obstructive sleep apnea syndrome 03/20/2020 Type 2 diabetes mellitus 03/20/2020 Overview (11/04/2021): Last Assessment & Plan: Diagnosed in 2009 Control [...] low sugars. Ophthalmology exam on regular basis. Family History Medical History Relation Comments Liver disease Mother Leukemia Sister Relation Status Comments Mother Sister Social History Tobacco Use Types Packs/Day Years [...] Mass Index 37.13 02/24/2022 3:49 PM CDT Plan of Treatment Health Maintenance Due Date Last Done Comments Pneumococcal PPSV23/PCV13 65 + Years / High and Highest Risk (1 of 4 - PCV) 1958 Diabetic Foot Exam 1962 Ophthalmology Exam 1962 Influenza Vaccine (#1) 2024 Care Teams Purification Operator Relationship Specialty Start Date End Date Wiley Causey MD PCP - General Family Medicine 10/05/21
--- OUTSIDE RECORDS SUMMARY | 2024-07-02 20:32 | XMS_ITS | Encounter Summary ---
Author Organization [facility]ISAC[facility] [employer] [facility] Address [address] [place] [address] Care Team Providers Care Physically Impaired Teacher Name Role Phone Wiley Causey MD Primary Care Provider [phone] Reason for Visit * Reason Onset Date Comments Medication Refill 04/26/2022 Encounter Details Date Type Department Care Team ([facility] Contact Info) Description 04/26/2022 Refill [facility] Hematology [facility] [address] [place] [address] Gabo Jiang MD [address] [employer] [address] [place] [address] Social History Tobacco Use Types Packs/Day [...] Upcoming Encounters Date Type Department Care Team ([facility] Contact Info) Description 12/26/2024 1:00 PM CDT Office Visit [facility] Hematology [facility] [address] [place] [address] Gabo Jiang MD [address] [place] [address] documented as of this encounter Visit Diagnoses Not on filedocumented in this encounter Care Teams Physically Impaired Teacher Relationship Specialty Start Date End Date Wiley Causey MD PCP - General Family Practice 08/04/21 documented as of this encounter
--- OUTSIDE RECORDS SUMMARY | 2024-07-02 20:32 | XMS_ITS | Encounter Summary ---
Author Organization [facility]ISACP[facility] Address [address] [place] [address] Care Team Providers Care Vocational Psychologist Name Role Phone Angel Cottrell Elida GARCIA Primary Care Provider Nasrin vailable Encounter Details Date Type Department Care Team ([facility] Contact Info) Description 02/26/2021 Orders Only [facility] Oncology and Hematology [facility] [address] [facility] [address] [place] [address] Provider, Abstract NO ADDRESS ON [...] Upcoming Encounters Date Type Department Care Team ([facility] Contact Info) Description 12/26/2024 1:00 PM CDT Office Visit [facility] Oncology and Hematology [facility] [address] [place] [address] Gabo Jiang MD [address] [facility] [address] [place] [address] documented as of this encounter Procedures Procedure Name Priority Date/Time Associated Diagnosis Comments CYCLIC CITRULLINATED PEPTIDE AB IGG Routine 02/16/2021 documented in this encounter Results * CYCLIC CITRULLINATED PEPTIDE AB IGG (02/16/2021) Blood Abstract Provider CHEMISTRY ORDERABLES documented in this encounter Visit Diagnoses Not on filedocumented in this encounter Care Teams Vocational Psychologist Relationship Specialty Start Date End Date Angel Cottrell DO NO ADDRESS ON FILE PCP - General Family Practice 12/03/20 08/03/21 documented as of this encounter
--- OUTSIDE RECORDS SUMMARY | 2024-07-02 20:32 | XMS_ITS | Encounter Summary ---
Author Organization [facility] Address [address] [facility] Attn: Epic Prelude ADT MARYAM MARTINES [address] Care Team Providers Care Insurance Healthcare Consultant Name Role Phone Angel Cottrell DO Primary Care Provider Nasrin vailable Encounter Details Date Type Department Care Team (Latest Contact Info) Description 05/28/2021 Travel Social History Tobacco Use Types Packs/Day [...] have Coronavirus / COVID-19? No / Unsure 05/28/2021 11:25 AM AUTOMOBILE DRIVERS documented as of this encounter Plan of Treatment Upcoming Encounters Date Type Department Care Team (Late st Contact Info) Description 12/26/2024 1:00 PM CDT Office Visit [facility] Oncology and Hematology - [place] [address] [facility] [address] [place] [address] Gabo Jiang MD [address] [facility] [address] [place] [address] documented as of this encounter Visit Diagnoses Not on filedocumented in this encounter Care Teams Insurance Healthcare Consultant Relationship Specialty Start Date End Date Angel Cottrell DO NO ADDRESS ON FILE PCP - General Family Practice 12/03/20 08/03/21 documented as of this encounter
--- OUTSIDE RECORDS SUMMARY | 2024-07-02 20:32 | XMS_ITS | Encounter Summary ---
Author Organization [facility] DELISAGoInstant [facility] Address [address] [place] [address] Care Team Providers Care Estate Planning Director Name Role Phone Krisnicola Jaime DO Primary Care Provider Nasrin vailable Reason for Visit * Reason Comments Follow Up 3 month f/u with lab s Encounter Details Date Type Department Care Team (Late st Contact Info) Description 05/28/2021 11:45 AM CONTINUOUS CRUSHER OPERATOR Office Visit [facility] Oncology and Hematology - [place] [address] [facility] [address] [place] [address] Gabo Jiang MD [address] [facility] [address] [place] [address] Chronic anemia (Primary Dx) Social [...] COVID-19? No / Unsure 05/28/2021 11:25 AM CONTINUOUS CRUSHER OPERATOR documented as of this encounter Last Filed Vital Signs Vital Sign Reading Time Taken Comments Blood Pressure 135/77 05/28/2021 11:36 AM CONTINUOUS CRUSHER OPERATOR Pulse 88 05/28/2021 11:36 AM CONTINUOUS CRUSHER OPERATOR Temperature 36.7 ??C (98.1 ??F) 05/28/2021 11:[address] Respiratory Rate - - Oxygen Saturation 98% 05/28/2021 11:36 AM CONTINUOUS CRUSHER OPERATOR Inhaled Oxygen Concentration - - Weight 98.5 kg (217 lb 3.2 oz) 05/28/2021 11:36 AM CONTINUOUS CRUSHER OPERATOR Height 157.5 cm (5' 2 ) 05/28/2021 11:36 AM CONTINUOUS CRUSHER OPERATOR Body Mass Index 39.73 05/28/2021 11:36 AM CONTINUOUS CRUSHER OPERATOR documented in this encounter Progress Notes * Gabo Jiang MD - 05/28/2021 11:56 AM CST HEMATOLOGY / ONCOLOGY PROGRESS NOTE Patient Identification: Name: Edith Mayo Age: 71 y.o. Sex: female : 1950 DIAGNOSIS Multifactorial anemia Vitamin B12 deficiency Chronic kidney stage III disease CURRENT TREATMENT Biweekly vitamin B12 injection started on December 30, 2020 TREATMENT HISTORY SUBJECTIVE Patient came into the office for follow-up of the. She has been complaining of some tiredness and fatigue. She did notice you lost B12 injection due to elevated B12 level. She denies any bleeding andbruising. No other new complaints. Review of system [...] saturation 16% ferritin 54 vitamin B12 380 @IMAGEIMP@ Assessment: Plan: Patient Active Problem List Diagnosis Date Noted ??? Stage 3b chronic kidney disease 12/03/2020 ??? Chronic anemia 12/03/2020 ??? Other dietary vitamin B12 deficiency anemia 12/03/2020 Multifactorial anemia. This is secondary to anemia of chronic kidney stage III disease, iron deficiency and vitamin B12 deficiency. Labs noted. Patient will continue monthly vitamin B12 injection. I have instructed her to take vitamin C 500 mg daily along with oral iron once a day. I will see her back in 3 months. Vitamin B12 deficiency. She will continue monthly B12 injection. CKD stage III. This has been managed by Dr. Jerez. Type 2 diabetes. Patient is on Amaryl and Trulicity. Follow-up in 3 months. TOBACCO COUNSELING She is not a tobacco user. 05/28/2021 Gabo Jiang MD INUOUS CRUSHER OPERATOR documented in this encounter Plan of Treatment Upcoming Encounters Date Type Department Care Team (Late st Contact Info) Description 12/26/2024 1:00 PM CDT Office Visit [facility] Oncology and Hematology - [place] [address] [facility] [address] [place] [address] Gabo Jiang MD [address] [facility] [address] [place] [address] Scheduled Orders Name Type Priority Associated Diagnoses Orde r Schedule CBC WITH DIFFERENTIAL Lab Stat Chronic anemia Expected: 08/20/2021, Expires: 05/28/2022 FERRITIN Lab Routine Chronic anemia Expected: 08/20/2021, Expires: 05/28/2022 IRON, TIBC, AND PERCENT SATURATION Lab Routine Chronic anemia Expected: 08/20/2021, Expires: 05/28/2022 VITAMIN B12 AND FOLATE Lab Routine Chronic anemia Expected: 08/20/2021, Expires: 05/28/2022 BASIC METABOLIC PANEL Lab Stat Chronic anemia Expected: 08/20/2021, Expires: 05/28/2022 documented as of this encounter Visit Diagnoses Diagnosis Chronic anemia- Primary Anemia, unspecified documented in this encounter Care Teams Estate Planning Director Relationship Specialty Start Date End Date Angel Cottrell DO NO ADDRESS ON FILE PCP - General Family Practice 12/03/20 08/03/21 documented as of this encounter
--- OUTSIDE RECORDS SUMMARY | 2024-07-02 20:32 | XMS_ITS | Encounter Summary ---
Author Organization [facility] [employer] [facility] Address [address] [place] [address] Care Team Providers Care Mission Support Specialist Name Role Phone Angel Cottrell DO Primary Care Provider Nasrin vailable Reason for Visit * Reason Comments Follow Up 2 week f/u * Eval and Treat (Routine) - Closed Specialty Diagnoses / Procedures Referred By Contac t Referred To Contact Oncology Diagnoses Iron deficiency anemia, unspecified [id number] Procedures office visit level 3-5 Angel Cottrell DO NO ADDRESS ON FILE Gabo Jiang MD [address] [place] [phone] Referral ID Status Reason Start Date Expiration Date Visits Re quested Visits Authorized [id number] Closed 11/14/2020 11/10/2021 12 12 Encounter Details Date Type Department Care Team (Late st Contact Info) Description 12/16/2020 3:30 PM CDT Office Visit [facility] Oncology and Hematology - [address] [facility] [address] [place] [address] Gabo Jiang MD [address] [place] [phone] Chronic anemia (Primary Dx); Anemia due to vitamin B12 deficiency, unspecified B12 deficiency type Social History Tobacco Use Types Packs/Day Years [...] Sign Reading Time Taken Comments Blood Pressure 161/78 12/16/2020 3:55 PM CDT cuff is small 134/70 at home Pulse 95 12/16/2020 3:55 PM CDT Temperature 36.3 ??C (97.3 ??F) 12/16/2020 3 :55 PM CDT Respiratory Rate - - Oxygen Saturation 97% 12/16/2020 3:5 5 PM CDT Inhaled Oxygen Concentration - - Weight 98.7 kg (217 lb 8 oz) 12/16/2020 3:55 PM CDT Height 157.5 cm (5' 2 ) 12/16/2020 3:55 PM CDT Body Mass Index 39.78 12/16/2020 3:55 PM CDT documented in this encounter Progress Notes * Gabo Jiang MD - 12/16/2020 5:01 PM CDT HEMATOLOGY / ONCOLOGY PROGRESS NOTE Patient Identification: Name: Edith Mayo Age: 70 y.o. Sex: female : 1950 DIAGNOSIS Multifactorial anemia Vitamin B12 deficiency Chronic kidney stage III disease CURRENT TREATMENT Plan to start biweekly B12 injections TREATMENT HISTORY SUBJECTIVE Patient came into the office for follow-up visit. She is complaining of excessive tiredness and fatigue but denies any bleeding and bruising. Weight and [...] dizziness Skin: No lumps, bumps or rashes. Objective: Vital signs in last 24 hours: [...] No lymphadenopathy Neuro: No obvious focal deficit PATH LABS Labs from December 03, 2020 showed WBC 12.6 hemoglobin 10.7 platelet 231,000 vitamin B12 241 iron 42 saturation 11% ferritin 19.7 creatinine 1.4 @IMAGEIMP@ Assessment: Plan: Patient Active Problem List Diagnosis Date Noted ??? Stage 3b chronic kidney disease 12/03/2020 ??? Chronic anemia 12/03/2020 ??? Other dietary vitamin B12 deficiency anemia 12/03/2020 Multifactorial anemia. This is secondary to anemia of chronic kidney stage III disease, iron deficiency and vitamin B12 deficiency. Patient is already taking oral iron with ferrous sulfate 325 once aday. I will increase it to twice a day along with vitamin C 500 mg daily. Vitamin B12 deficiency. I will start her on a biweekly vitamin B12 injection. She is already takingoral B12 without much improvement in B12 level and remains quite tired and fatigue. Chronic kidney stage III disease. She will continue to be managed by Dr. Jerez. Type 2 diabetes. Continue Trulicity and Amaryl. ? TOBACCO COUNSELING She is not a tobacco user. 12/16/2020 Gabo Jiang MD documented in this encounter Plan of Treatment Upcoming Encounters Date Type Department Care Team (Late st Contact Info) Description 12/26/2024 1:00 PM CDT Office Visit [facility] Oncology and Hematology - [place] [address] [facility] [address] [place] [address] Gabo Jiang MD [address] [facility] [address] [place] [address] Scheduled Orders Name Type Priority Associated Diagnoses Orde r Schedule CBC WITHOUT DIFFERENTIAL Lab Routine Chronic anemia Expected: 02/10/2021 (Approximate), Expires: 12/16/2021 IRON, TIBC, AND PERCENT SATURATION Lab Routine Chronic anemia Expected: 02/10/2021 (Approximate), Expires: 12/16/2021 FERRITIN Lab Routine Chronic anemia Expected: 02/10/2021 (Approximate), Expires: 12/16/2021 VITAMIN B12 AND FOLATE Lab Routine Chronic anemia Expected: 02/10/2021 (Approximate), Expires: 12/16/2021 documented as of this encounter Visit Diagnoses Diagnosis Chronic anemia- Primary Anemia, unspecified Anemia due to vitamin B12 deficiency, unspecified B12 deficiency type documented in this encounter Care Teams Mission Support Specialist Relationship Specialty Start Date End Date Angel Cottrell DO NO ADDRESS ON FILE PCP - General Family Practice 12/03/20 08/03/21 documented as of this encounter
--- OUTSIDE RECORDS SUMMARY | 2024-07-02 20:32 | XMS_ITS | Encounter Summary ---
Author Organization [facility] Address [address], [place] [address] Phone Care Team Providers Care Health Information Management Director Name Role Phone Wiley Causey MD Primary Care Provider [phone] Encounter Details Date Type Department Care Team (Late st Contact Info) Description 11/04/2021 11:00 AM CDT Office Visit [facility] Nephrology and Hypertension [address] [place] [address], [address] [place] [address] Brisa Schafer MD [address] [facility], [address] [place] [address] Chronic kidney disease stage 4 (CMS-HCC); Diabetes mellitus with renal manifestations (CMS-HCC); Benign hypertension with chronic kidney disease Social History Tobacco Use Types Packs/Day Years [...] Sign Reading Time Taken Comments Blood Pressure 132/74 11/04/2021 11:12 AM CDT Pulse - - Temperature 36.9 ??C (98.5 ??F) 11/04/2021 11:12 AM C DT Respiratory Rate 18 11/04/2021 11:12 AM CDT Oxygen Saturation - - Inhaled Oxygen Concentration - - Weight 97.1 kg (214 lb) 11/04/2021 11:12 AM CDT Height 157.5 cm (5' 2 ) 11/04/2021 11:12 AM CDT Body Mass Index 39.14 11/04/2021 11:12 AM CDT documented in this encounter Progress Notes * Brisa Schafer MD - 11/04/2021 11:00 AM CDT FOLLOW-UP OFFICE VISIT Patient: Edith Mayo Birthdate: 1950 PCP: Wiley Causey MD Visit Date: 11/04/2021 INTERIM HISTORY Edith Mayo here for hospital follow-up regarding her chronic kidney disease. She was seen about a month ago during her hospitalization at [facility]. She was admitted with acute kidney injury on top o her known chronic kidney disease secondary to a combination of obstructive uropathy, prerenal factors along with concomitant NSAID use likely worsened by her continued use of FRANCO-I in the setting of infection/sepsis. Her creatinine was ~ 6.7mg/dl on admission in early September 2021 but improved back to baseline with interventions to date (ureteral stenting, IVF, IV antibiotics...etc). She has known chronic kidney disease and had been following with Dr. Jerez for her CKD management. She chose to follow-up with me since her Urologist is based here at [facility]. Since discharge, she appears to be feeling quite well. No apparent distress or concerns voiced at this time. No issues or problems to report on this clinic visit. Past medical history, social history and family history has not changed since I last saw her. ALLERGIES Allergies Allergen Reactions ??? Statins Hives ??? Tramadol Hives ??? Budesonide-Formoterol Fumarate Muscle spasms MEDICATIONS Current Outpatient Medications: ??? Cyanocobalamin 1000 MCG capsule, Take 1 capsule by mouth, Disp: , Rfl: ??? Dulaglutide (Trulicity) 0.75 MG/0.5ML solution pen-injector, INJECT 0.75 MG UNDER THE SKIN ONCEWEEKLY, Disp: , Rfl: ??? ergocalciferol (VITAMIN D-2) 1.25 MG (38705 UT) capsule, Take 50,000 Units by mouth, Disp: , Rfl: ??? topiramate (TOPAMAX) 25 MG tablet, Take 25 mg by mouth daily, Disp: , Rfl: ??? Accu-Chek Iwona Plus test strip, USE [...] cream, Apply topically, Disp: , Rfl: ??? glimepiride (AMARYL) 1 MG tablet, Take 1 mg by mouth 1 (one) time each day, Disp: , Rfl: ??? lisinopril (PRINIVIL) 40 MG tablet, , Disp: , Rfl: ??? Magnesium Oxide 400 MG capsule, Take 400 mg by mouth 2 times daily, Disp: , Rfl: ??? omeprazole (PriLOSEC) [address] capsule, Take 40 mg by mouth 1 (one) time each day, Disp: , Rfl: ??? Ozempic, 1 MG/DOSE, 4 MG/3ML solution pen-injector, INJECT 1MG UNDER THE SKIN ONCE WEEKLY, Disp: , Rfl: ??? potassium citrate (UROCIT-K) 10 MEQ (1080 MG) CR tablet, Take 20 mEq by mouth 3 (three) times aday, Disp: , Rfl: ??? predniSONE (DELTASONE) 1 MG tablet, Take 4 mg by mouth 1 (one) time each day, Disp: , Rfl: REVIEW OF SYSTEMS Constitutional: No fever, weight loss or gain, no fatigue. No loss of appetite. Cardiovascular: No chest pain. No Orthopnea, PND. Respiratory: No cough, no sputum production, no SOB or CARRANZA. : No dysuria or gross hematuria. No frequency or urgency. No nocturia. Skin: No rash or itching. VITALS BP 132/74 (BP Location: Right arm, Patient Position: Sitting) Temp 98.5 ??F (36.9 ??C) Resp 18 Ht 5' 2 (1.575 m) Wt 214 lb (97.1 kg) BMI 39.14 kg/m?? BSA 2.06 m?? PHYSICAL EXAM General: Comfortable and in no acute distress Cardiovascular: Normal S1, S2; no rub Respiratory: Clear bilaterally Abdominal: Soft, non-tender, non-distended; positive bowel sounds Extremities: No cyanosis, clubbing, or edema Skin: Warm and dry RECENT LABS/IMAGING Lab Results Component Value Date BUN 18 10/27/2021 CREATININE 2.1 10/27/2021 EGFRAA 27 10/27/2021 EGFR 23 10/27/2021 NA 142 10/27/2021 K 3.7 10/27/2021 CL 104 10/27/2021 CO2 24 10/27/2021 CA 9.1 10/27/2021 GLUCOSE 139 10/27/2021 ASSESSMENT 1. Chronic kidney disease stage 4 ([facility]) 2. Diabetes mellitus with renal manifestations ([facility]) 3. Benign hypertension with chronic kidney disease DISCUSSION/PLAN Edith has chronic kidney disease due to her hypertension, diabetes, MADDY, vascular disease and nephrolithiasis. Her baseline creatinine runs ~ 1.8 - 2.3mg/dl in the last year or so. As she was seeing another video news editor previously, I suspect she has already had an extensive work-up and evaluation with regard to her kidney disease (so I will not repeat one). To help reduce the rate of kidney deterioration: Control BP: follow trend Control DM: monitor A1c Control LDL cholesterol: per PCP (allergic to statins) Control Intact PTH: will check Use FRANCO/ARB: on lisinopril Low protein diet: [...] formation. Blood Pressure for this visit is 132/74. The follow up plan to address blood pressure is follow thetrend. Body mass index is 39.14 kg/m??. Follow up plan to address BMI is diet/exercise as tolerated. Continue current medications Repeat labs prior to next visit Ceasar Schafer MD documented in this encounter Plan of Treatment Not on file documented as of this encounter Procedures Procedure Name Priority Date/Time Associated Diagnosis Comments RENAL FUNCTION PANEL (RFP) Routine 10/27/2021 documented in this encounter Results * Renal Function Panel (RFP) (10/27/2021) Calcium, Serum/Plasma 9.1 mg/dL EXTERNAL LAB (NON-INTERFACE D) Carbon dioxide CO2), total, Serum/Plasma 24 mmol/L EXTERNAL LAB (NON-INTERFACE D) Chloride, Serum/Plasma 104 mmol/L EXTERNAL LAB (NON-INTERFACE D) Creatinine, Serum/Plasma 2.1 mg/dL EXTERNAL LAB (NON-INTERFACE D) Glucose, Serum/Plasma 139 mg/dL EXTERNAL LAB (NON-INTERFACE D) Potassium, Serum/Plasma 3.7 mmol/L EXTERNAL LAB (NON-INTERFACE D) Sodium, Serum/Plasma 142 mmol/L EXTERNAL LAB (NON-INTERFACE D) Urea nitrogen, Serum/Plasma (BUN) 18 mg/dL EXTERNAL LAB (NON-INTERFACE D) eGFR, non 23 mL/min EXTERNAL LAB (NON-INTERFACE D) eGFR, 27 mL/min EXTERNAL LAB (NON-INTERFACE D) Blood (Blood, Venous) Historical Provider MD LAB BLOOD ORDERAB LES EXTERNAL LAB (NON-INTERFACED) documented in this encounter Visit Diagnoses Diagnosis Chronic kidney disease stage 4 (CMS-HCC) Diabetes mellitus with renal manifestations (CMS-HCC) Benign hypertension with chronic kidney disease documented in this encounter Care Teams Health Information Management Director Relationship Specialty Start Date End Date Wiley Causey MD PCP - General Family Medicine 10/05/21 documented as of this encounter
--- OUTSIDE RECORDS SUMMARY | 2024-07-02 20:32 | XMS_ITS | Encounter Summary ---
Author Organization [facility] [email or web address] [facility] Address [address] [place] [address] Care Team Providers Care Credentialing Manager Name Role Phone Wiley Causey MD Primary Care Provider [phone] Reason for Visit * Reason Onset Date Comments Medication Refill 04/30/2022 Encounter Details Date Type Department Care Team ([facility] Contact Info) Description 04/30/2022 Refill [facility] Oncology and Hematology [address] [place] [address] Gabo Jiang MD [address] [facility] [address] [place] [address] Other dietary vitamin B12 deficiency [...] Upcoming Encounters Date Type Department Care Team ([facility] Contact Info) Description 12/26/2024 1:00 PM CDT Office Visit [facility] Oncology and Hematology [address] [place] [address] Gabo Jiang MD [address] [facility] [address] [place] [phone] documented as of this encounter Visit Diagnoses Diagnosis Other dietary vitamin B12 deficiency anemia- Primary documented in this encounter Care Teams Credentialing Manager Relationship Specialty Start Date End Date Wiley Causey MD PCP - General Family Practice 08/04/21 documented as of this encounter
--- OUTSIDE RECORDS SUMMARY | 2024-07-02 20:32 | XMS_ITS | Encounter Summary ---
Author Organization [facility] [employer] [facility] Address [address] [place] [address] Care Team Providers Care License Examiner Name Role Phone Wiley Causey MD Primary Care Provider [phone] Encounter Details Date Type Department Care Team ([facility] Contact Info) Description 08/06/2021 Orders Only [facility] Oncology and Hematology - [place] [address] [place] [address] Alix [place] Chronic anemia Social History Tobacco Use Types [...] COVID-19? No / Unsure 08/04/2021 10:36 AM EQUIPMENT INSTALLER documented as of this encounter Plan of Treatment Upcoming Encounters Date Type Department Care Team ([facility] Contact Info) Description 12/26/2024 1:00 PM CDT Office Visit [facility] Oncology and Hematology - [address] [address] [place] [address] Gabo Jiang MD [address] [facility] [address] [place] [address] documented as of this encounter Visit Diagnoses Diagnosis Chronic anemia Anemia, unspecified documented in this encounter Care Teams License Examiner Relationship Specialty Start Date End Date Wiley Causey MD PCP - General Family Practice 08/04/21 documented as of this encounter
--- OUTSIDE RECORDS SUMMARY | 2024-07-02 20:32 | XMS_ITS | Encounter Summary ---
Author Organization [facility] [employer] [facility] Address [address] [place] [address] Care Team Providers Care Process Inspector Name Role Phone Wiley Causey MD Primary Care Provider [phone] Reason for Visit * Reason Onset Date Comments Medication Refill 04/28/2022 Encounter Details Date Type Department Care Team ([facility] Contact Info) Description 04/28/2022 Refill [facility] Oncology and Hematology - [address] [address] [place] [address] Gabo Jiang MD [address] [facility] [address] [place] [address] Chronic anemia (Primary Dx); Other dietary vitamin B12 deficiency anemia Social [...] Upcoming Encounters Date Type Department Care Team ([facility] Contact Info) Description 12/26/2024 1:00 PM CDT Office Visit [facility] Oncology and Hematology - [place] [address] [place] [address] Gabo Jiang MD [address] [facility] [address] [place] [phone] documented as of this encounter Visit Diagnoses Diagnosis Chronic anemia- Primary Anemia, unspecified Other dietary vitamin B12 deficiency anemia documented in this encounter Care Teams Process Inspector Relationship Specialty Start Date End Date Wiley Causey MD PCP - General Family Practice 08/04/21 documented as of this encounter
--- OUTSIDE RECORDS SUMMARY | 2024-07-02 20:32 | XMS_ITS | Encounter Summary ---
Author Organization [facility] Address [address] [place] [address] Care Team Providers Care Asparagus Buncher Name Role Phone Angel Cottrell DO Primary Care Provider Nasrin vailable Reason for Visit * Reason Comments Follow Up F/U with Labs and In j * Eval and Treat (Routine) - Closed Specialty Diagnoses / Procedures Referred By Contac t Referred To Contact Oncology Diagnoses Iron deficiency anemia, unspecified d509 Procedures office visit level 3-5 Angel Cottrell DO NO ADDRESS ON FILE Gabo Jiang MD [address] [place] [phone] Referral ID Status Reason Start Date Expiration Date Visits Re quested Visits Authorized [id number] Closed 11/14/2020 11/10/2021 12 12 Encounter Details Date Type Department Care Team (Late st Contact Info) Description 02/24/2021 9:00 AM CDT Office Visit [facility] Oncology and Hematology - [place] [address] [place] [address] Gabo Jiang MD [address] [place] [phone] Chronic anemia (Primary Dx) Social History [...] Sign Reading Time Taken Comments Blood Pressure 139/66 02/24/2021 9:22 AM CDT Pulse 87 02/24/2021 9:22 AM CDT Temperature 36.7 ??C (98 ??F) 02/24/2021 9:22 AM CDT Respiratory Rate - - Oxygen Saturation 97% 02/24/2021 9:22 AM CDT Inhaled Oxygen Concentration - - Weight 96.2 kg (212 lb) 02/24/2021 9:22 AM CDT Height 157.5 cm (5' 2 ) 02/24/2021 9:22 AM CDT Body Mass Index 38.78 02/24/2021 9:22 AM CDT documented in this encounter Progress Notes * Gabo Jiang MD - 02/24/2021 9:59 AM CDT HEMATOLOGY / ONCOLOGY PROGRESS NOTE Patient Identification: Name: Edith Mayo Age: 70 y.o. Sex: female : 1950 DIAGNOSIS Multifactorial anemia Vitamin B12 deficiency Chronic kidney stage III disease CURRENT TREATMENT Biweekly vitamin B12 injection started on December 30, 2020 TREATMENT HISTORY SUBJECTIVE Patient came into the office for follow-up visit and vitamin B12 injection. She is feeling much better and more energetic. Denies any bleeding and bruising. No new complaints. Review of system Constitutional: denies [...] 837 iron 57 saturation 17% ferritin 44 @IMAGEIMP@ Assessment: Plan: Patient Active Problem List Diagnosis Date Noted ??? Stage 3b chronic kidney disease 12/03/2020 ??? Chronic anemia 12/03/2020 ??? Other dietary vitamin B12 deficiency anemia 12/03/2020 Multifactorial anemia. This is secondary to anemia of chronic kidney stage III disease, iron deficiency and vitamin B12 deficiency. Labs noted that showed a stable hemoglobin with improvement in vitamin B12 level. Clinically she isfeeling much better and more stronger. She will continue oral iron once a day with vitamin C daily. Vitamin B12 deficiency. Continue vitamin B12 injection. We will change to monthly basis at this time. B12 level has improved. CKD stage III. This has been managed by Dr. Jerez. Type 2 diabetes. Patient is on Trulicity and Amaryl. Follow-up in 3 months. TOBACCO COUNSELING She is not a tobacco user. 02/24/2021 Gabo Jiang MD documented in this encounter Plan of Treatment Upcoming Encounters Date Type Department Care Team (Late st Contact Info) Description 12/26/2024 1:00 PM CDT Office Visit [facility] Oncology and Hematology - [place] [address] [facility] [address] [place] [address] Gabo Jiang MD [address] [facility] [address] [place] [address] Scheduled Orders Name Type Priority Associated Diagnoses Orde r Schedule CBC WITH DIFFERENTIAL Lab Stat Chronic anemia Expected: 05/19/2021, Expires: 02/24/2022 VITAMIN B12 AND FOLATE Lab Routine Chronic anemia Expected: 05/19/2021, Expires: 02/24/2022 IRON, TIBC, AND PERCENT SATURATION Lab Routine Chronic anemia Expected: 05/19/2021, Expires: 02/24/2022 FERRITIN Lab Routine Chronic anemia Expected: 05/19/2021, Expires: 02/24/2022 documented as of this encounter Visit Diagnoses Diagnosis Chronic anemia- Primary Anemia, unspecified documented in this encounter Care Teams Asparagus Buncher Relationship Specialty Start Date End Date Angel Cottrell DO NO ADDRESS ON FILE PCP - General Family Practice 12/03/20 08/03/21 documented as of this encounter
--- OUTSIDE RECORDS SUMMARY | 2024-07-02 20:32 | XMS_ITS | Encounter Summary ---
Author Organization [facility] [address] [facility] [facility] Address [address] [place] [address] Care Team Providers Care Laminator Preforms Name Role Phone Wiley Causey MD Primary Care Provider [phone] Reason for Visit * Reason Comments Chemotherapy 3 month f/u with lab s and TX Encounter Details Date Type Department Care Team (Late st Contact Info) Description 10/27/2021 10:45 AM CDT [facility] Visit [facility] Oncology [facility] H[facility]ology - [place] [address] [facility] [address] [place] [address] Gabo Jiang MD [address] [facility] [address] [place] [address] Chronic anemia (Primary Dx) Social [...] Sign Reading Time Taken Comments Blood Pressure 144/76 10/27/2021 10:44 AM CDT Pulse 96 10/27/2021 10:44 AM CDT Temperature 36.6 ??C (97.9 ??F) 10/27/2021 10:44 AM C DT Respiratory Rate - - Oxygen Saturation 97% 10/27/2021 10:44 AM CDT Inhaled Oxygen Concentration - - Weight 97.6 kg (215 lb 1.6 oz) 10/27/2021 10:44 AM CDT Height 157.5 cm (5' 2 ) 10/27/2021 10:44 AM CDT Body Mass Index 39.34 10/27/2021 10:44 AM CDT documented in this encounter Progress Notes * Gabo Jiang MD - 10/27/2021 1:34 PM CDT HEMATOLOGY / ONCOLOGY PROGRESS NOTE Patient Identification: Name: Edith Mayo Age: 71 y.o. Sex: female : 1950 DIAGNOSIS Multifactorial anemia Vitamin B12 deficiency Chronic kidney stage III disease CURRENT TREATMENT Biweekly vitamin B12 injection started on December 30, 2020 TREATMENT HISTORY SUBJECTIVE Patient came into the office for follow-up visit and vitamin B12 injection. She is feeling much better. Denies any bleeding and bruising. Weight and [...] 9.9 hemoglobin 9.9 platelet 185,000 creatinine 2.1 Assessment: Plan: Patient Active Problem List Diagnosis Date Noted ??? Stage 3b chronic kidney disease 12/03/2020 ??? Chronic anemia 12/03/2020 ??? Other dietary vitamin B12 deficiency anemia 12/03/2020 Multifactorial anemia. This is secondary to anemia of chronic kidney stage III disease, iron deficiency and vitamin B12 deficiency. Labs noted. Hemoglobin is slightly down to 9.9. She will continue oral iron once a day with vitaminC daily. We discussed use of Procrit injection. We will repeat labs again in 3 months or sooner based on her symptoms to decide if she needs Procrit injection. Vitamin B12 deficiency. She will continue vitamin B12 monthly injection. Chronic kidney stage III disease. She will continue to follow with Dr. Jerez. Type 2 diabetes. Patient is on Trulicity and Amaryl. She is stable. Follow-up in 3 months. TOBACCO COUNSELING She is not a tobacco user. 10/27/2021 Gabo Jiang MD documented in this encounter Plan of Treatment Upcoming Encounters Date Type Department Care Team (Late st Contact Info) Description 12/26/2024 1:00 PM CDT [facility] Visit [facility] Oncology and H[facility]ology - [place] [address] [facility] [place] [address] [place] [address] Gabo Jiang MD [address] [facility] [address] [place] [address] Scheduled Orders Name Type Priority Associated Diagnoses Orde r Schedule CBC WITH DIFFERENTIAL Lab Stat Chronic anemia Expected: 01/19/2022, Expires: 10/27/2022 documented as of this encounter Visit Diagnoses Diagnosis Chronic anemia- Primary Anemia, unspecified documented in this encounter Care Teams Laminator Preforms Relationship Specialty Start Date End Date Wiley Causey MD PCP - General Family Practice 08/04/21 documented as of this encounter
--- OUTSIDE RECORDS SUMMARY | 2024-07-02 20:32 | XMS_ITS | Encounter Summary ---
Author Organization [facility] Address [address] [place] [address] Care Team Providers Care Clinical Pharmacologist Name Role Phone Angel Cottrell DO Primary Care Provider Nasrin vailable Reason for Visit * Reason Comments Establish Care New Patient for Iron deficiency Anemia * Eval and Treat (Routine) - Closed Specialty Diagnoses / Procedures Referred By Contsabra t Referred To Contact Oncology Diagnoses Iron deficiency anemia, unspecified [id number] Procedures office visit level 3-5 Angel Cottrell DO NO ADDRESS ON FILE Gabo Jiang MD [address] [place] [phone] Referral ID Status Reason Start Date Expiration Date Visits Re quested Visits Authorized [id number] Closed 11/14/2020 11/10/2021 12 12 Encounter Details Date Type Department Care Team (Late st Contact Info) Description 12/03/2020 1:00 PM CDT Office Visit [facility] Oncology and Hematology - [place] [address] [address] Gabo Jiang MD [address] [place] [id number] Chronic anemia (Primary Dx); Stage 3b chronic kidney disease; Other dietary vitamin B12 deficiency anemia Social [...] Sign Reading Time Taken Comments Blood Pressure 133/66 12/03/2020 1:13 PM CDT Pulse 96 12/03/2020 1:13 PM CDT Temperature 36.8 ??C (98.3 ??F) 12/03/2020 1:13 PM CD T Respiratory Rate - - Oxygen Saturation 97% 12/03/2020 1:13 PM CDT Inhaled Oxygen Concentration - - Weight 100.2 kg (220 lb 12.8 oz) 12/03/2020 1:13 PM CDT Height 157.5 cm (5' 2 ) 12/03/2020 1:13 PM CDT Body Mass Index 40.38 12/03/2020 1:13 PM CDT documented in this encounter Progress Notes * Gabo Jiang MD - 12/03/2020 2:38 PM CDT Hematology-oncology consult Note Requesting Physician Angel Cottrell, DO Primary Care Physician Angel Cottrell, DO Problem list There is no problem list on file for this patient. Previous TREATMENT ? Measurable Disease ? Reason for Visit Edith Mayo is a 70 y.o. female who was referred for consultation for chronic anemia. History of present illness This is a 70-year-old female with history of chronic kidney stage III disease diagnosed about 1 year ago along with diabetes and hypertension. She was seen by the stave and bolt equalizer Dr. Jerez andlabs showed significant anemia with hemoglobin of 10.6. She has been complaining of tiredness and fatigue. She denies any bleeding including melena hematochezia. She denies being a vegetarian. Her weight and appetite stable. She has been taking oral vitamin B12 for last couple of months duration. She is not taking any oral iron supplementation. Her last colonoscopy was more than 2 years ago and reportedly came back normal. She denies any neuropathy and bone pain. She does have some left knee pain status post left knee repair. Denies any other complaints. Past Medical History Past Medical History: Diagnosis Date ??? Asthma ??? Diabetes mellitus ??? HTN (hypertension) ??? Hyperlipidemia ??? Nutritional anemia, unspecified Surgical History Past Surgical History: Procedure Laterality Date ??? HX APPENDECTOMY ??? HX CHOLECYSTECTOMY ??? HX HYSTERECTOMY ??? HX KNEE SURGERY Medications Current Outpatient Medications Medication Sig Dispense Refill ??? amLODIPine (NORVASC) 5 mg tablet Take 5 mg by mouth. ??? blood sugar diagnostic (Accu-Bevalleyk Iwona Plus test strp) Strip TEST BS ONCE D ??? dulaglutide (Trulicity) 1.5 mg/0.5 mL injection ADMINISTER 1.5 MG UNDER THE SKIN 1 TIME A WEEK ??? glimepiride (AMARYL) 1 mg tablet TK 1 T PO QD ??? lancets (Accu-Bevalleyk Softclix Lancets) USE TO TEST ONCE DAILY ??? betamethasone valerate (VALISONE) 0.1 % Cream Apply to affected area. ??? cyanocobalamin (VITAMIN B-12) 100 mcg tablet Take 100 mcg by mouth. ??? lisinopriL (PRINIVIL) 20 mg tablet Take 20 mg by mouth. ? ? Vit D3 & [id number] [phone] [id number] Tablet Take by mouth. No current facility-administered medications for this visit. Allergies Allergies Allergen Reactions ??? Atorvastatin Hives ??? Tramadol Hives ??? Budesonide-Formoterol Muscle Pain Immunizations: There is no immunization history on file for this patient. Family History Family History Problem Relation Name Age of Onset ??? Leukemia Father ??? Heart Disease Father ??? Liver Cancer Mother ??? Diabetes Mother ??? Heart Disease Brother Social History Social History Tobacco Use ??? Smoking status: Former Smoker Packs/day: 2.00 Years: 25.00 Pack years: 50.00 Types: Cigarettes Quit date: 2006 Years since quittin.3 ??? Smokeless tobacco: Never Used Substance Use Topics ??? Alcohol use: Yes Review of Systems Constitutional: No fever; no night sweats; no anorexia; no weight loss; complain of tiredness and fatigue NEENT: No headache; no change in vision; no change in hearing; no sore throat; no dysphagia Respiratory: No shortness of breath; no pleuritic chest pain; no cough; no hemoptysis Cardiac: No cardiac-like chest pain; no palpitations; no orthopnea; no PND; no CARRANZA Breasts: No tenderness; no masses GI: No abdominal pain; no nausea; no vomiting; no diarrhea; no hematochezia; no melena : No dysuria; no frequency; no hesitancy; no hematuria WEDDING DECORATOR: Musculosketetal: no bone pain; no arthralgia; no joint swelling; no myalgia; Skin: no pruritis; no rash; no petechiae; no ecchymoses Endocrine: no polydipsia; no polyuria; no unusual weight gain Neuro: No headache; no change in vision; no sensory changes; no muscle weakness; no confusion; no seizures Psych: no anxiety; no depression; Physical Exam Vitals: As per nursing note Constitutional: Well developed, well nourished, no acute distress, non-toxic appearance Teeth and gum. No signs of infection or swelling. Eyes: PERRL, conjunctiva normal HEENT: Atraumatic, external ears normal, nose normal, oropharynx moist, no pharyngeal exudates. no sinus tenderness Neck- normal range of motion, no tenderness, supple Respiratory: No respiratory distress, normal breath sounds, no rales, no wheezing Cardiovascular: Normal rate, normal rhythm, no murmurs, no gallops, no rubs GI: Soft, nondistended, normal bowel sounds, nontender, no splenomegaly, no hepatomegaly, no mass, no rebound, no guarding : No costovertebral angle tenderness Musculoskeletal: No edema, no tenderness, no deformities. Back- no tenderness Integument: Well hydrated, no rash, Digits and nails inspection normal Lymphatic: No lymphadenopathy noted Neurologic: Alert & oriented x 3, CN 2-12 normal, normal motor function, normal sensory function, no focal deficits noted Psychiatric: Speech and behavior appropriate ? labs No results found for this or any previous visit (from the past 24 hour(s)). Labs from September 15, 2020 showed WBC 13.5 hemoglobin 10.6 MCV 87.8 platelet 255,000 neutrophils 67% lymphocytes 17% creatinine 1.5 calcium 9.3 iron 42 iron saturation 11% ferritin 17.1 vitamin B12 209. Pathology ? Imaging & Other Studies Performance Status? Assessment / Plan: ? Multifactorial anemia. This is a pleasant 70-year-old female with history of chronic kidney stage III disease, diabetes and hypertension. She has been complaining of tiredness and fatigue. She denies any bleeding including melena hematochezia. Her weight and appetite stable. Labs ordered by patient stave and bolt equalizer Dr. Jerez showed hemoglobin of 10.6 with significant vitamin B12 deficiency and mild iron deficiency. Her anemia is likely multifactorial secondary to anemia of chronic kidney stage III disease, vitamin B12 deficiency and possible iron deficiency. Iron studies are more typical of anemia of chronic kidney disease rather than true iron deficiency. At this time I will repeat labs that would include CBC, CMP, iron panel, soluble transferrin receptor and vitamin B12 level. Shehas been quite symptomatic with tiredness and fatigue. Based on the repeat lab we will recommend IViron infusion as well as vitamin B12 injections. In the meantime she will continue vitamin B12 oralreplacement therapy and will start iron with ferrous sulfate 325 mg twice a day with vitamin C 500 mg daily. I will see her back in 2 weeks to discuss findings and recommendations. I have answered all the questions to patient satisfaction. Chronic kidney stage III disease. This is managed by Dr. Jerez. Type 2 diabetes. Patient is on Trulicity and Amaryl. Hypertension. Patient is on Norvasc and lisinopril. Thank you very much for allowing me to participate in Edith Mayo's evaluation and management. Please feel free to contact if I can be of any further assistance in your patient???s care requiring hematology or oncology evaluation. Sincerely, ? ? Gabo Jiang M.D. cell TOBACCO COUNSELING She is not a tobacco user. Gabo Jiang MD ,12/03/2020 2:38 PM ? Total time spent 80 minutes, two third of the total time spent counseling patient [id number]. CC:? documented in this encounter Plan of Treatment Upcoming Encounters Date Type Department Care Team (Late st Contact Info) Description 12/26/2024 1:00 PM CDT Office Visit [facility] Oncology and Hematology [place] [id number] [address] [address] Gabo Jiang MD [address] [facility] [address] [place] [phone] Scheduled Orders Name Type Priority Associated Diagnoses Orde r Schedule CBC WITH DIFFERENTIAL Lab Routine Chronic anemia Expected: 12/03/2020, Expires: 12/03/2021 COMPREHENSIVE METABOLIC PANEL Lab Routine Chronic anemia Expected: 12/03/2020, Expires: 12/03/2021 FERRITIN Lab Routine Chronic anemia Expected: 12/03/2020, Expires: 12/03/2021 IRON, TIBC, AND PERCENT SATURATION Lab Routine Chronic anemia Expected: 12/03/2020, Expires: 12/03/2021 VITAMIN B12 AND FOLATE Lab Routine Chronic anemia Expected: 12/03/2020, Expires: 12/03/2021 TSH Lab Routine Chronic anemia Expected: 12/03/2020, Expires: 12/03/2021 TRANSFERRIN RECEPTOR TFR SOLUBLE Lab Routine Chronic anemia Expected: 12/03/2020, Expires: 12/03/2021 documented as of this encounter Visit Diagnoses Diagnosis Chronic anemia- Primary Anemia, unspecified Stage 3b chronic kidney disease Other dietary vitamin B12 deficiency anemia documented in this encounter Care Teams Clinical Pharmacologist Relationship Specialty Start Date End Date Angel Cottrell DO NO ADDRESS ON FILE PCP - General Family Practice 12/03/20 08/03/21 documented as of this encounter
--- OUTSIDE RECORDS SUMMARY | 2024-07-02 20:33 | XMS_ITS | Encounter Summary ---
Author Organization [facility] [employer] [facility] [address] [facility] Address [address] [address] Phone Care Team Providers Care Powdered Sugar Supervisor Name Role Phone Wiley Causey MD Primary Care Provider [phone] Reason for Referral * (Routine) - Closed Specialty Diagnoses / Procedures Referred By Jd minor Referred To Contact Diagnoses Stage 3 chronic kidney disease, not otherwise specified (HCC) Nephrolithiasis Obstructive sleep apnea syndrome H/O: anemia - iron deficient Hypertension Type 2 diabetes mellitus with diabetic chronic kidney disease (HCC) Pure hypercholesterolemia, not otherwise specified Acute injury of kidney Procedures [facility] Kidney Stone Urine Panel, 24 Hour Hay Jerez DO Phone: tel: fax: Referral ID Status Reason Start Date Expiration Date Visits Re quested Visits Authorized [id number] Closed 09/15/2021 09/15/2022 1 1 AVEMENT PROGRAM COORDINATOR Reason for Visit * Consultation (Routine) - Closed Specialty Diagnoses / Procedures Referred By Jd minor Referred To Contact Nephrology Diagnoses Stage 3 chronic kidney disease, not otherwise specified (HCC) Hay Jerez DO Phone: tel: fax: Hay Jerez DO Phone: tel: fax: Referral ID Status Reason Start Date Expiration Date V isits Requested Visits Authorized [id number] Closed Consult and Treat 04/21/2021 10/18/2021 6 6 Encounter Details Date Type Department Care Team (Late st Contact Info) Description 09/15/2021 2:15 PM BEREAVEMENT PROGRAM COORDINATOR Office Visit [facility], [facility] [address] [facility] [facility] [place] [address] Hay Jerez DO [address] [place] [id number] Stage 3 chronic kidney disease, not otherwise specified (HCC) (Primary Dx); Nephrolithiasis; Obstructive sleep apnea syndrome; H/O: anemia - iron deficient; Hypertension; Type 2 diabetes mellitus with diabetic chronic kidney disease (HCC); Pure hypercholesterolemia , not otherwise specified; Acute injury of kidney (HCC) Social History Tobacco Use Types Packs/Day Years Used Date Smoking Tobacco: Never Alcohol Use Standard Drinks/Week Comments Yes 0 (1 standard drink = 0.6 oz pure alcohol) Alcoholic Drinks/day: Occasional social drink Comments Unknown Sex and Gender Information Value Date Recorded Sex Assigned at Not on file Legal Sex Female 2:52 PM EDT Gender Identity Not on file Sexual Orientation Not on file documented as of this encounter Last Filed Vital Signs Vital Sign Reading Time Taken Comments Blood Pressure 132/62 09/15/2021 2:23 PM BEREAVEMENT PROGRAM COORDINATOR Pulse - - Temperature 36.4 ??C (97.6 ??F) 09/15/2021 2:23 PM CS T Respiratory Rate 18 09/15/2021 2:23 PM BEREAVEMENT PROGRAM COORDINATOR Oxygen Saturation 98% 09/15/2021 2:23 PM BEREAVEMENT PROGRAM COORDINATOR Inhaled Oxygen Concentration - - Weight 101 kg (223 lb) 09/15/2021 2:23 PM BEREAVEMENT PROGRAM COORDINATOR Height 157.5 cm (5' 2 ) 09/15/2021 2:23 PM BEREAVEMENT PROGRAM COORDINATOR Body Mass Index 40.79 09/15/2021 2:23 PM BEREAVEMENT PROGRAM COORDINATOR documented in this encounter Progress Notes * Hay Jerez DO - 09/15/2021 2:15 PM CST Images from the original note were not included. CC: MD Dr. Jessica Malloy (Urology [facility]) ASSESSMENT: Stage 4 chronic kidney disease with out proteinuria but with sterile proteinuria concerning for interstitial nephritis presumably due to PPI OAB Nephrolithiasis with 1.4 cm left renal stone s/p extraction Jul 2020 Obesity with MADDY Anemia due to B12 deficiency and iron deficiency GERD with history of esophageal stricture on PPI PMR on steroids HTN DM2 HLD PLAN: - Lisinopril 40 mg PO Qhs #90 with 1 refill - stop Amlodipine - Would like to start SGLT2 inhibitor in the future to further protect from CKD progression. - Low preservative, high fluid intake diet. - 24 hour urine with the next visit to eval for kidney stones. - return in 3 months with labs SUBJECTIVE: Mrs. Edith Mayo is a 71 y.o. WF with a PMHx of distant tobacco, Obesity with MADDY, HTN, DM2 dx 2007, HLD, PMR, Nephrolithasis and stage 3b-4 chronic kidney disease for which she follows in our office. Her Scr is 2.0 mg/dL estimating her GFR to be 25 mL/min. No proteinuria, but some sterile pyuria raising concern for interstitial nephritis. She is back on PPI for GERD with esophageal scaring. I would again like to maximize her FRANCO Inhibitor use and will stop the CCB to make room for this. She has recurrent kidney stones. I appreciate that her GLP 1 agonist has been increased to the maximum dose by her PCP. She has not seen her picture hanger. A 12 point review of systems is otherwise negative. 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 Social History: reports that she has never smoked. She does not have any smokeless tobacco historyon file. She reports current alcohol use. She reports that she does not use drugs. 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 EXAM: BP 132/62 Temp 97.6 ??F Resp 18 Ht 5' 2 (1.575 m) Wt 223 lb (101 kg) SpO2 98% BMI 40.79 kg/m?? NAD, alert and appropriate No JVD, moist oropharynx HRRR without murmur Lungs B CTA without expiratory wheezes Abdomen benign, nontender LE without edema Skin without petechae, purpura or livido Gait normal No focal neurologic deficits RESULTS: Chemistry Lab Units 07/01/20109904/14/20 0830 CREATININE mg/dL 2.20* 1.77* EGFRAFR mL/min/1.73m2 26* 34* EGFRNAFR mL/min/1.73m2 22* 29* BUN mg/dL 35* 22 SODIUM mmol/L 138 140 POTASSIUM mmol/L 4.7 4.1 CHLORIDE mmol/L 103 104 CO2 mmol/L 26 25 CALCIUM mg/dL 9.2 9.0 PHOSPHORUS mg/dL 3.6 3.3 VIT D 25 HYDROXY ng/mL 8* -- ALBUMIN, S/P g/dL 4.1 3.8 ALBUMIN g/dL -- 3.6* MAGNESIUM mg/dL -- 1.6 HEMOGLOBIN A1C % of total Hgb 6.3* -- Labs Lab Units 07/01/20 1100 04/14/20 0830 HEMOGLOBIN g/dL 9.7* 9.3* PLATELETS AUTO Thousand/uL 237 198 IRON mcg/dL 46 -- FERRITIN ng/mL 43 -- TIBC mcg/dL (calc) 335 -- IRON SATURATION % (calc) 14* -- Urine Lab Units 07/01/20109904/14/20 0830 PROT/CREAT RATIO UR mg/g creat -- 0.208* 208* ALB MG/G CREAT UR mcg/mg creat 30* 17 Labs 09/07/21: Cr 2.00, BUN 21, K 3.8, Bicarb 23, Ca 9.2, Mg 1.5, VitD 37, PTH 70, Labs 09/07/21: Hgb 10.8, Ferr 67, TSat 18%, B12 > 1000, UA +tr LE, +7 wbc; ACR nl, UPC nl, Labs 06/09/21: Cr 1.80, BUN 32, K 4.0, Na 138, Bicarb 21, Ca 9.5, VitD 53, A1c 5.6%, Labs 04/27/21: Cr 1.90, BUN 24, K 3.9, Na 141, Bicarb 24, Ca 9.3, VitD 40, Labs 04/27/21: ESR > 140, TSH 1.7, C3nl, C4 nl, UA +1 prot, ACR nl, UPC nl, Labs 02/17/21: VitD 20, Labs 02/17/21: UA +tr LE, 0wbc 0rbc; Labs 02/16/21: Cr 2.20, BUN 24, K 5.1, Ca 9.8, Alb 4.3, Ca 9.8, Labs 02/16/21: Hgb 10.6, Tsat 17%, Ferr 44, B12 837, Folate 7, ESR 77, CRP 1.1 (nl < 1.0), Labs 10/31/20: Cr 1.40, BUN 14, K 3.9, Na 141, Bicarb 29, Ca 8.8, VitD 17, Labs 10/31/20: B12 209, Folate 10, Ferr 17, TSat 11%, ACR nl, UPC nl, UA bland. Labs 09/15/20: Cr 1.50, BUN 26, K 3.8, Bicarb 26, Ca 9.3, Mg 1.3, VitD 30, Labs 09/15/20: Hgb 10.6, Tsat 11%, Ferr 16, Folate 8.6, B12 356, CRP nl, ESR 82, Labs 09/15/20: UA bland, UPC nl, ACR nl, Labs 07/01/20: Cr 2.20, BUN 35, K 4.7, Na 138, Bicarb 26, Ca 9.2, VitD 8, Labs 07/01/20: Hgb 9.7, wbc 12.4, Ferr 43, Tsat 14%, B12 225, A1c 6.3%, Labs 07/01/20: UA 20-40 rbc, ACR 30 mCg/mg, Labs 04/14/20: Cr 1.77, BUN 22, K 4.1, Bicarb 25, Ca 9.0, Labs 04/14/20: ESR 49, CRP 6.8, C3 nl, C4 nl, Hep panel nr, Labs 04/14/20: Hgb 9.3, MCV 83, Free light nl, SPEP nl, Labs 04/14/20: UA 3-10 rbc, ACR 17 mCg/mg, UPC 208 mg/day Labs 02/05/20: Cr 1.41, BUN 18, K 4.9, Bicarb 28, Ca 9.2, Mg 1.4, Labs 01/29/20: Cr 1.59, BUN 28, K 5.4, Na 143, Bicarb 21, Mg 1.4, Ca 8.9, Labs 01/17/20: Cr 1.77, BUN 40, K 6.0, Bicarb 18, AG 10, Na 136, Gluc 148, Ca 9.3, Labs 06/12/19: Cr 1.48, BUN 22, K 4.0, Na 143, Bicarb 28, Ca 9.7, Labs 06/12/19: Hgb 11.9, wbc 16.0, plt 313, MCV 85, ESR 30, CRP 8.6, LDL 94, A1c 6.0% . . Renal US 03/27/20: right 9.7 cm, left 10.7 cm, no mass. Stone in left kidney 1.4 cm, postvoid residual 7 mL. MRI brain 06/13/19: no stroke. Thank you for allowing me to participate in the care of your patient. Sincerely, Hay Jerez DO documented in this encounter Plan of Treatment Scheduled Orders Name Type Priority Associated Diagnoses Orde r Schedule Renal function panel Lab Routine Stage 3 chronic kidney disease, not otherwise specified (HCC) Nephrolithiasis Obstructive sleep apnea syndrome H/O: anemia - iron deficient Hypertension Type 2 diabetes mellitus with diabetic chronic kidney disease (HCC) Pure hypercholesterolemia, not otherwise specified Acute injury of kidney (HCC) Expected: 09/15/2021, Expires: 10/16/2022 PTH, intact Lab Routine Stage 3 chronic kidney disease, not otherwise specified (HCC) Nephrolithiasis Obstructive sleep apnea syndrome H/O: anemia - iron deficient Hypertension Type 2 diabetes mellitus with diabetic chronic kidney disease (HCC) Pure hypercholesterolemia, not otherwise specified Acute injury of kidney (HCC) Expected: 09/15/2021, Expires: 10/16/2022 Vitamin D 25 hydroxy Lab Routine Stage 3 chronic kidney disease, not otherwise specified (HCC) Nephrolithiasis Obstructive sleep apnea syndrome H/O: anemia - iron deficient Hypertension Type 2 diabetes mellitus with diabetic chronic kidney disease (HCC) Pure hypercholesterolemia, not otherwise specified Acute injury of kidney (HCC) Expected: 09/15/2021, Expires: 10/16/2022 Urine Protein / creatinine ratio Lab Routine Stage 3 chronic kidney disease, not otherwise specified (HCC) Nephrolithiasis Obstructive sleep apnea syndrome H/O: anemia - iron deficient Hypertension Type 2 diabetes mellitus with diabetic chronic kidney disease (HCC) Pure hypercholesterolemia, not otherwise specified Acute injury of kidney (HCC) Expected: 09/15/2021, Expires: 10/16/2022 Urine Albumin / Creatinine Ratio Lab Routine Stage 3 chronic kidney disease, not otherwise specified (HCC) Nephrolithiasis Obstructive sleep apnea syndrome H/O: anemia - iron deficient Hypertension Type 2 diabetes mellitus with diabetic chronic kidney disease (HCC) Pure hypercholesterolemia, not otherwise specified Acute injury of kidney (HCC) Expected: 09/15/2021, Expires: 10/16/2022 Uric acid Lab Routine Stage 3 chronic kidney disease, not otherwise specified (HCC) Nephrolithiasis Obstructive sleep apnea syndrome H/O: anemia - iron deficient Hypertension Type 2 diabetes mellitus with diabetic chronic kidney disease (HCC) Pure hypercholesterolemia, not otherwise specified Acute injury of kidney (HCC) Expected: 09/15/2021, Expires: 10/16/2022 CBC Lab Routine Stage 3 chronic kidney disease, not otherwise specified (HCC) Nephrolithiasis Obstructive sleep apnea syndrome H/O: anemia - iron deficient Hypertension Type 2 diabetes mellitus with diabetic chronic kidney disease (HCC) Pure hypercholesterolemia, not otherwise specified Acute injury of kidney (HCC) Expected: 09/15/2021, Expires: 10/16/2022 Magnesium Lab Routine Stage 3 chronic kidney disease, not otherwise specified (HCC) Nephrolithiasis Obstructive sleep apnea syndrome H/O: anemia - iron deficient Hypertension Type 2 diabetes mellitus with diabetic chronic kidney disease (HCC) Pure hypercholesterolemia, not otherwise specified Acute injury of kidney (HCC) Expected: 09/15/2021, Expires: 10/16/2022 [facility] Kidney Stone Urine Panel, 24 Hour Lab Routine Stage 3 chronic kidney disease, not otherwise specified (HCC) Nephrolithiasis Obstructive sleep apnea syndrome H/O: anemia - iron deficient Hypertension Type 2 diabetes mellitus with diabetic chronic kidney disease (HCC) Pure hypercholesterolemia, not otherwise specified Acute injury of kidney (HCC) Expected: 09/16/2021, Expires: 10/16/2022 Urinalysis with microscopic Lab Routine Stage 3 chronic kidney disease, not otherwise specified (HCC) Nephrolithiasis Obstructive sleep apnea syndrome H/O: anemia - iron deficient Hypertension Type 2 diabetes mellitus with diabetic chronic kidney disease (HCC) Pure hypercholesterolemia, not otherwise specified Acute injury of kidney (HCC) Expected: 09/15/2021, Expires: 10/16/2022 Vitamin B12 Lab Routine Stage 3 chronic kidney disease, not otherwise specified (HCC) Nephrolithiasis Obstructive sleep apnea syndrome H/O: anemia - iron deficient Hypertension Type 2 diabetes mellitus with diabetic chronic kidney disease (HCC) Pure hypercholesterolemia, not otherwise specified Acute injury of kidney (HCC) Expected: 09/15/2021, Expires: 10/16/2022 Ferritin Lab Routine Stage 3 chronic kidney disease, not otherwise specified (HCC) Nephrolithiasis Obstructive sleep apnea syndrome H/O: anemia - iron deficient Hypertension Type 2 diabetes mellitus with diabetic chronic kidney disease (HCC) Pure hypercholesterolemia, not otherwise specified Acute injury of kidney (HCC) Expected: 09/15/2021, Expires: 10/16/2022 documented as of this encounter Visit Diagnoses Diagnosis Stage 3 chronic kidney disease, not otherwise specified (HCC)- Primary Nephrolithiasis Obstructive sleep apnea syndrome H/O: anemia - iron deficient Hypertension Type 2 diabetes mellitus with diabetic chronic kidney disease (HCC) Pure hypercholesterolemia, not otherwise specified Acute injury of kidney documented in this encounter Care Teams Powdered Sugar Supervisor Relationship Specialty Start Date End Date Wiley Causey MD [address] [place] [address] PCP - General Family Medicine 06/17/21 documented as of this encounter
--- OUTSIDE RECORDS SUMMARY | 2024-07-02 20:33 | XMS_ITS | Encounter Summary ---
Author Organization [facility] , [facility] Address [address] [facility] [place] [address] Phone Care Team Providers Care Ocean Lifeguard Specialist Name Role Phone Unavailable Primary Care Provider Unavailabl e Reason for Visit * Reason Onset Date Comments Med Refill 06/16/2021 Encounter Details Date Type Department Care Team (Late st Contact Info) Description 06/16/2021 Refill [facility], [facility] [address] [facility] [address] [place] [address] Alix Moreira [facility] [address] [place] [address] Social History Tobacco Use Types Packs/Day Years [...]
--- OUTSIDE RECORDS SUMMARY | 2024-07-02 20:33 | XMS_ITS | Encounter Summary ---
Author Organization [facility] [employer] [facility] Address [address] [place] [address] Phone Care Team Providers Care Gut Sorter Name Role Phone Wiley Causey MD Primary Care Provider [phone] Encounter Details Date Type Department Care Team (Late st Contact Info) Description 09/08/2021 Documentation Only [facility], [facility] [address] [facility] 1 [place] [address] Hay Jerez DO [address] [facility] 1 [place] [address] Social History Tobacco Use Types [...] on filedocumented in this encounter Care Teams Gut Sorter Relationship Specialty Start Date End Date Wiley Causey MD [address] [place] [address] PCP - General Family Medicine 06/17/21 documented as of this encounter
--- OUTSIDE RECORDS SUMMARY | 2024-07-02 20:33 | XMS_ITS | Encounter Summary ---
Author Organization [facility] [employer] [facility] Address [address] [place] [phone] Phone Care Team Providers Care Division Sales Manager Name Role Phone Unavailable Primary Care Provider Unavailabl e Encounter Details Date Type Department Care Team (Late st Contact Info) Description 02/20/2021 Documentation Only [place] [facility] [facility] [address] [address] Hay Jerez, DO [address] [address] Social History Tobacco Use Types Packs/Day [...]
--- OUTSIDE RECORDS SUMMARY | 2024-07-02 20:33 | XMS_ITS | Encounter Summary ---
Author Organization [facility] Address [address] [facility] [place] [address] Phone Care Team Providers Care Apricot Washer Name Role Phone Wiley Causey MD Primary Care Provider [phone] Encounter Details Date Type Department Care Team (Late st Contact Info) Description 09/16/2021 Orders Only [place] [email or web address] [address] [facility] 15 [place] [address] Hay Jerez DO [address] [facility] 1 [place] [address] Stage 3 chronic kidney disease, not otherwise specified (HCC); Nephrolithiasis; Obstructive sleep apnea syndrome; H/O: anemia - iron deficient; Hypertension; Type 2 diabetes mellitus with diabetic chronic kidney disease (HCC); Pure hypercholesterolemia, not otherwise specified; Acute injury of kidney [...] kidney documented in this encounter Care Teams Apricot Washer Relationship Specialty Start Date End Date Wiley Causey MD [address] [place] [address] PCP - General Family Medicine 06/17/21 documented as of this encounter
--- OUTSIDE RECORDS SUMMARY | 2024-07-02 20:33 | XMS_ITS | Encounter Summary ---
Author Organization [facility] , [facility] Address [address] [facility] [place] [address] Phone Care Team Providers Care Excavator Operator Name Role Phone Unavailable Primary Care Provider Unavailabl e Reason for Visit * Reason Onset Date Comments Med Refill 04/28/2021 Encounter Details Date Type Department Care Team (Late st Contact Info) Description 04/28/2021 Refill [facility] [facility] [address] [facility] 15 [place] [address] Amirah Zamorano [facility] [address] [place] [address] Social History Tobacco Use Types [...] have Coronavirus / COVID-19? No / Unsure 04/28/2021 3:01 PM EDT documented as of this encounter Plan of Treatment Not on file documented as of this encounter Visit Diagnoses Not on filedocumented in this encounter
--- OUTSIDE RECORDS SUMMARY | 2024-07-02 20:33 | XMS_ITS | Encounter Summary ---
Author Organization [facility] , [facility] Address [address] [facility] [place] [address] Phone Care Team Providers Care Chocolate Packer Name Role Phone Wiley Causey MD Primary Care Provider [phone] Reason for Referral * Consultation (Routine) - Closed Specialty Diagnoses / Procedures Referred By Contac t Referred To Contact Nephrology Diagnoses Stage 3 chronic kidney disease, not otherwise specified (HCC) Hay Jerez DO Phone: tel: fax: Hay Jerez DO Phone: tel: fax: Referral ID Status Reason Start Date Expiration Date V isits Requested Visits Authorized [id number] Closed Consult and Treat 03/24/2021 04/23/2021 12 12 Encounter Details Date Type Department Care Team (Late st Contact Info) Description 03/25/2021 Transcribe Orders [employer] [facility] [place], [facility] [address] [facility] 15 [place] [address] Hay Jerez DO [address] [facility] 1 [place] [address] Stage 3 chronic kidney disease, not otherwise specified (HCC) (Primary Dx) Social History Tobacco Use Types [...] of this encounter Plan of Treatment Scheduled Referrals Name Type Priority Associated Diagnoses Order Schedule Ambulatory referral to Nephrology Outpatient Referral Routine Stage 3 chronic kidney disease, not otherwise specified (HCC) Expected: 03/25/2021, Expires: 04/23/2021 documented as of this encounter Visit Diagnoses Diagnosis Stage 3 chronic kidney disease, not otherwise specified (HCC)- Primary documented in this encounter Care Teams Chocolate Packer Relationship Specialty Start Date End Date Wiley Causey MD [address] [place] [address] PCP - General Family Medicine 06/17/21 documented as of this encounter
--- OUTSIDE RECORDS SUMMARY | 2024-07-02 20:33 | XMS_ITS | Encounter Summary ---
Author Organization [facility] , [facility] Address [address] [facility] [place] [address] Phone Care Team Providers Care Appointment Manager Name Role Phone Wiley Causey MD Primary Care Provider [phone] Reason for Visit * Reason Onset Date Comments Med Refill 09/15/2021 Encounter Details Date Type Department Care Team (Late st Contact Info) Description 09/15/2021 Refill [facility], [facility] [address] [facility] 15 [place] [address] [facility] [address] [place] [address] Social History Tobacco Use Types [...] on filedocumented in this encounter Care Teams Appointment Manager Relationship Specialty Start Date End Date Wiley Causey MD [address] [place] [address] PCP - General Family Medicine 06/17/21 documented as of this encounter
--- OUTSIDE RECORDS SUMMARY | 2024-07-02 20:33 | XMS_ITS | Encounter Summary ---
Author Organization [facility] [employer] [facility] , [facility] Address [address] [address] Phone Care Team Providers Care Laundromat Manager Name Role Phone Unavailable Primary Care Provider Unavailabl e Reason for Visit * Consultation (Routine) - Closed Specialty Diagnoses / Procedures Referred By Jd t Referred To Contact Nephrology Diagnoses Stage 3 chronic kidney disease, not otherwise specified (HCC) Hay Jerez DO Phone: tel: fax: Hay Jerez DO Phone: tel: fax: Referral ID Status Reason Start Date Expiration Date V isits Requested Visits Authorized [id number] Closed Consult and Treat 04/21/2021 10/18/2021 6 6 Encounter Details Date Type Department Care Team (Late st Contact Info) Description 06/16/2021 2:45 PM INTERNATIONAL FIRST OFFICER Office Visit [place] [facility], [facility] [address] [facility] 15 [place] [id number] Hay Jerez DO [address] [facility] 1 [place] [address] Stage 3 chronic kidney disease, [...] Sign Reading Time Taken Comments Blood Pressure 140/52 06/16/2021 1:49 PM INTERNATIONAL FIRST OFFICER Pulse 93 06/16/2021 1:49 PM INTERNATIONAL FIRST OFFICER Temperature 36.7 ??C (98 ??F) 06/16/2021 1:49 PM INTERNATIONAL FIRST OFFICER Respiratory Rate 18 06/16/2021 1:49 PM INTERNATIONAL FIRST OFFICER Oxygen Saturation 95% 06/16/2021 1:49 PM INTERNATIONAL FIRST OFFICER Inhaled Oxygen Concentration - - Weight 100 kg (221 lb) 06/16/2021 1:49 PM INTERNATIONAL FIRST OFFICER Height 157.5 cm (5' 2 ) 06/16/2021 1:49 PM INTERNATIONAL FIRST OFFICER Body Mass Index 40.42 06/16/2021 1:49 PM INTERNATIONAL FIRST OFFICER documented in this encounter Progress Notes * Hay Jerez DO - 06/16/2021 2:45 PM CST Images from the original note were not included. CC: Dr. Ralph primary care provider on file. Dr. Lopez ([facility]) ASSESSMENT: Stage 3 chronic kidney disease with out proteinuria. OAB Nephrolithiasis with 1.4 cm left renal stone s/p extraction Jul 2020 Obesity with MADDY Anemia due to B12 deficiency and iron deficiency GERD with history of esophageal stricture on PPI PMR on steroids HTN DM2 HLD PLAN: - Increase Lisinopril to 40 mg PO Qhs #90 with 1 refill - stop amlodipine - return in 3 months with labs SUBJECTIVE: Mrs. Edith Mayo is a 71 y.o. WF with a PMHx of distant tobacco, Obesity with MADDY, HTN, DM2 dx 2007, HLD, PMR, Nephrolithasis and stage 3b-4 chronic kidney disease for which she follows in our office. She is following closely as she recovers from SARS-CoV2. I expect that we will need to resume many medications that needed to be stopped as her intake was very poor. A 12 point review of systems is otherwise negative. 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 Social History: reports that she has never smoked. She does not have any smokeless tobacco history on file. She reports current alcohol use. She reports that she does not use drugs. 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 EXAM: BP 140/52 Pulse 93 Temp 98 ??F Resp 18 Ht 5' 2 (1.575 m) Wt 221 lb (100 kg) SpO2 95% BMI 40.42 kg/m?? NAD, alert and appropriate No JVD, [...] % (calc) 14* -- Urine Lab Units 07/01/20 1100 04/14/20 0830 PROT/CREAT RATIO UR mg/g creat -- 0.208* 208* ALB MG/G CREAT UR mcg/mg creat 30* 17 Labs 06/09/21: Cr 1.80, BUN 32, K [...] care of your patient. Sincerely, Hay Jerez MD documented in this encounter Plan of [...] specified Acute injury of kidney (HCC) Expected: 06/16/2021, Expires: 07/16/2022 Vitamin D 25 hydroxy Lab Routine Stage 3 chronic kidney disease, not otherwise specified (HCC) Nephrolithiasis Obstructive sleep apnea syndrome H/O: anemia - iron deficient Hypertension Type 2 diabetes mellitus with diabetic chronic kidney disease (HCC) Pure hypercholesterolemia, not otherwise specified Acute injury of kidney (HCC) Expected: 06/16/2021, Expires: 07/16/2022 Urine Protein / creatinine ratio Lab Routine Stage 3 chronic kidney disease, not otherwise specified (HCC) Nephrolithiasis Obstructive sleep apnea syndrome H/O: anemia - iron deficient Hypertension Type 2 diabetes mellitus with diabetic chronic kidney disease (HCC) Pure hypercholesterolemia, not otherwise specified Acute injury of kidney (HCC) Expected: 06/16/2021, Expires: 07/16/2022 Urine Albumin / Creatinine Ratio Lab Routine Stage 3 chronic kidney disease, not otherwise specified (HCC) Nephrolithiasis Obstructive sleep apnea syndrome H/O: anemia - iron deficient Hypertension Type 2 diabetes mellitus with diabetic chronic kidney disease (HCC) Pure hypercholesterolemia, not otherwise specified Acute injury of kidney (HCC) Expected: 06/16/2021, Expires: 07/16/2022 Urinalysis with microscopic Lab Routine Stage 3 chronic kidney disease, not otherwise specified (HCC) Nephrolithiasis Obstructive sleep apnea syndrome H/O: anemia - iron deficient Hypertension Type 2 diabetes mellitus with diabetic chronic kidney disease (HCC) Pure hypercholesterolemia, not otherwise specified Acute injury of kidney (HCC) Expected: 06/16/2021, Expires: 07/16/2022 PTH, intact Lab Routine Stage 3 chronic kidney disease, not otherwise specified (HCC) Nephrolithiasis Obstructive sleep apnea syndrome H/O: anemia - iron deficient Hypertension Type 2 diabetes mellitus with diabetic chronic kidney disease (HCC) Pure hypercholesterolemia, not otherwise specified Acute injury of kidney (HCC) Expected: 06/16/2021, Expires: 07/16/2022 Magnesium Lab Routine Stage 3 chronic kidney disease, not otherwise specified (HCC) Nephrolithiasis Obstructive sleep apnea syndrome H/O: anemia - iron deficient Hypertension Type 2 diabetes mellitus with diabetic chronic kidney disease (HCC) Pure hypercholesterolemia, not otherwise specified Acute injury of kidney (HCC) Expected: 06/16/2021, Expires: 07/16/2022 CBC and differential Lab Routine Stage 3 chronic kidney disease, not otherwise specified (HCC) Nephrolithiasis Obstructive sleep apnea syndrome H/O: anemia - iron deficient Hypertension Type 2 diabetes mellitus with diabetic chronic kidney disease (HCC) Pure hypercholesterolemia, not otherwise specified Acute injury of kidney (HCC) Expected: 06/16/2021, Expires: 07/16/2022 Ferritin Lab Routine Stage 3 chronic kidney disease, not otherwise specified (HCC) Nephrolithiasis Obstructive sleep apnea syndrome H/O: anemia - iron deficient Hypertension Type 2 diabetes mellitus with diabetic chronic kidney disease (HCC) Pure hypercholesterolemia, not otherwise specified Acute injury of kidney (HCC) Expected: 06/16/2021, Expires: 07/16/2022 Iron Panel (Fe, TIBC, TSAT) Lab Routine Stage 3 chronic kidney disease, not otherwise specified (HCC) Nephrolithiasis Obstructive sleep apnea syndrome H/O: anemia - iron deficient Hypertension Type 2 diabetes mellitus with diabetic chronic kidney disease (HCC) Pure hypercholesterolemia, not otherwise specified Acute injury of kidney (HCC) Expected: 06/16/2021, Expires: 07/16/2022 Vitamin B12 Lab Routine Stage 3 chronic kidney disease, not otherwise specified (HCC) Nephrolithiasis Obstructive sleep apnea syndrome H/O: anemia - iron deficient Hypertension Type 2 diabetes mellitus with diabetic chronic kidney disease (HCC) Pure hypercholesterolemia, not otherwise specified Acute injury of kidney (HCC) Expected: 06/16/2021, Expires: 07/16/2022 documented as of this encounter Visit Diagnoses Diagnosis Stage 3 chronic kidney disease, not otherwise specified (HCC)- Primary Nephrolithiasis Obstructive sleep apnea syndrome H/O: anemia - iron deficient Hypertension Type 2 diabetes mellitus with diabetic chronic kidney disease (HCC) Pure hypercholesterolemia, not otherwise specified Acute injury of kidney documented in this encounter
--- OUTSIDE RECORDS SUMMARY | 2024-07-02 20:33 | XMS_ITS | Encounter Summary ---
Author Organization [facility] [employer] [facility] Address [address] [place] [phone] Phone Care Team Providers Care Paper Bag Making Machinist Name Role Phone Unavailable Primary Care Provider Unavailabl e Encounter Details Date Type Department Care Team (Late st Contact Info) Description 06/10/2021 Documentation Only [facility] [address] [address] Hay Jerez, DO [address] [address] Social History Tobacco Use Types [...]
--- OUTSIDE RECORDS SUMMARY | 2024-07-02 20:33 | XMS_ITS | Encounter Summary ---
Author Organization [facility] [employer] [facility] Address [address] [place] [phone] Phone Care Team Providers Care Serology Technician Name Role Phone Unavailable Primary Care Provider Unavailabl e Encounter Details Date Type Department Care Team (Late st Contact Info) Description 02/20/2021 Documentation Only [place] [facility] [address] [address] Hay Jerez, DO [address] [address] Social History Tobacco Use Types [...]
--- OUTSIDE RECORDS SUMMARY | 2024-07-02 20:33 | XMS_ITS | Encounter Summary ---
Author Organization [facility] [employer] [facility] Address [address] [place] [phone] Phone Care Team Providers Care Envelope Folder Name Role Phone Unavailable Primary Care Provider Unavailabl e Encounter Details Date Type Department Care Team (Late st Contact Info) Description 05/01/2021 Documentation Only [facility] [address] [address] Hay Jerez, DO [address] [place] [phone] Social History Tobacco Use Types Packs/Day [...]
--- OUTSIDE RECORDS SUMMARY | 2024-07-02 20:33 | XMS_ITS | Encounter Summary ---
Author Organization [employer] [facility] , [facility] Address [address] [place] [phone] Phone Care Team Providers Care Surgery Aid Name Role Phone Unavailable Primary Care Provider Unavailabl e Reason for Visit * Reason Comments Med Refill Encounter Details Date Type Department Care Team (Late st Contact Info) Description 05/28/2021 Refill [place] [employer] [facility], [facility] [address] [place] [address] Hay Jerez DO [address] [place] [phone] Social History Tobacco Use Types Packs/Day [...]
--- OUTSIDE RECORDS SUMMARY | 2024-07-02 20:33 | XMS_ITS | Encounter Summary ---
Author Organization [employer] [facility] , [facility] Address [address] [facility] [place] [address] Phone Care Team Providers Care General Duty Nurse Name Role Phone Wiley Causey MD Primary Care Provider [phone] Reason for Referral * Consultation (Routine) - Closed Specialty Diagnoses / Procedures Referred By Contac t Referred To Contact Nephrology Diagnoses Stage 3 chronic kidney disease, not otherwise specified (HCC) Hay Jerez DO Phone: tel: fax: Hay Jerez DO Phone: tel: fax: Referral ID Status Reason Start Date Expiration Date V isits Requested Visits Authorized [id number] Closed Consult and Treat 04/21/2021 10/18/2021 6 6 Encounter Details Date Type Department Care Team (Late st Contact Info) Description 04/24/2021 Transcribe Orders [facility], [facility] [address] [facility] 15 [place] [address] Hay Jerez DO [address] [facility] 1 [place] [address] Stage 3 chronic kidney disease, [...] kidney disease, not otherwise specified (HCC) Expected: 04/24/2021, Expires: 10/18/2021 documented as of this encounter Visit Diagnoses Diagnosis Stage 3 chronic kidney disease, not otherwise specified (HCC)- Primary documented in this encounter Care Teams General Duty Nurse Relationship Specialty Start Date End Date Wiley Causey MD [address] [place] [address] PCP - General Family Medicine 06/17/21 documented as of this encounter
--- OUTSIDE RECORDS SUMMARY | 2024-07-02 20:33 | XMS_ITS | Encounter Summary ---
Author Organization [facility] Address [address] [address] Care Team Providers Care Printed Circuit Boards Laminator Name Role Phone Unavailable Primary Care Provider Unavailabl e Encounter Details Date Type Department Care Team (Latest Contact Info) Description 04/28/2021 Travel Social History Tobacco Use Types Packs/Day [...]
--- OUTSIDE RECORDS SUMMARY | 2024-07-02 20:33 | XMS_ITS | Encounter Summary ---
Author Organization [facility] [employer] [facility] Address [address] [place] [phone] Phone Care Team Providers Care Early Interventionist Name Role Phone Unavailable Primary Care Provider Unavailabl e Encounter Details Date Type Department Care Team (Late st Contact Info) Description 02/20/2021 Documentation Only [place] [employer] [facility] [address] [address] Hay Jerez, DO [address] [address] Social History Tobacco Use Types [...]
--- OUTSIDE RECORDS SUMMARY | 2024-07-02 20:33 | XMS_ITS | Encounter Summary ---
Author Organization [facility] [employer] [facility] Address [address] [place] [phone] Phone Care Team Providers Care Bagger Meat Name Role Phone Wiley Causey MD Primary Care Provider [phone] Encounter Details Date Type Department Care Team (Late st Contact Info) Description 09/09/2021 Documentation Only [facility], [facility] [address] [facility] 1 [place] [address] Hay Jerez DO [address] [facility] 1 [place] [address] Social History Tobacco Use Types [...] on filedocumented in this encounter Care Teams Bagger Meat Relationship Specialty Start Date End Date Wiley Causey MD [address] [place] [address] PCP - General Family Medicine 06/17/21 documented as of this encounter
--- OUTSIDE RECORDS SUMMARY | 2024-07-02 20:33 | XMS_ITS | Encounter Summary ---
Author Organization [facility] [employer] [facility] , [facility] Address [address] [address] Phone Care Team Providers Care Crew Caller Name Role Phone Unavailable Primary Care Provider [...] Expiration Date V isits Requested Visits Authorized [id number] Closed Consult and Treat 04/21/2021 10/18/2021 6 6 Encounter Details Date Type Department Care Team (Late st Contact Info) Description 04/28/2021 3:00 PM CDT Office Visit [place] [employer] [facility], [place], [facility] [address] [phone] Hay Jerez DO [address] [facility] 1 [place] [address] Stage 3 chronic kidney disease, not otherwise specified (HCC) (Primary Dx); Nephrolithiasis; Obstructive sleep apnea syndrome; H/O: anemia - iron deficient; Hypertension; Type 2 diabetes mellitus with diabetic chronic kidney disease (HCC); Pure hypercholesterolemia , not otherwise specified Social History Tobacco Use Types Packs/Day Years [...] PM EDT documented as of this encounter Last Filed Vital Signs Vital Sign Reading Time Taken Comments Blood Pressure 120/50 04/28/2021 3:35 PM CDT Pulse 88 04/28/2021 3:35 PM CDT Temperature 35.7 ??C (96.2 ??F) 04/28/2021 3:35 PM CD T Respiratory Rate 18 04/28/2021 3:35 PM CDT Oxygen Saturation 96% 04/28/2021 3:35 PM CDT Inhaled Oxygen Concentration - - Weight 95.3 kg (210 lb) 04/28/2021 3:35 PM CDT Height 157.5 cm (5' 2 ) 04/28/2021 3:35 PM CDT Body Mass Index 38.41 04/28/2021 3:35 PM CDT documented in this encounter Progress Notes * Hay Jerez MD - 04/28/2021 3:00 PM CDT Images from the original note were not included. CC: Dr. Angel Cottrell, DO Dr. Lopez ([facility]) ASSESSMENT: Stage 3 chronic kidney disease with out proteinuria. OAB Nephrolithiasis with 1.4 cm left renal stone s/p extraction Jul 2020 Obesity with MADDY Anemia due to B12 deficiency and iron deficiency GERD with history of esophageal stricture on PPI PMR on no therapy at this time. HTN DM2 HLD PLAN: - Ergocalciferol 50,000 units PO Qweek #12 with 1 refill - stop lisinopril for now - stop amlodipine For now - rheumatology to consider immunosuppresion for PMR - return in 6-8 weeks to re-address the BP. SUBJECTIVE: Mrs. Edith Mayo is a 71 y.o. WF with a PMHx of distant tobacco, Obesity with MADDY, HTN, DM2 dx 2007, HLD, PMR, Nephrolithasis and stage 3b-4 chronic kidney disease for which she follows in our office. We are seeing her back shortly after he last visit to follow her Scr trend, which shahid from 1.5 to 2.2 mg/dL. Her Scr is now 1.9 mg/dL with a bland urine and no proteinuria. ESR remains > 140 suggesting an inflammatory arthritis, such as PMR. She had SARS-CoV2 viremia with PNA in late March. She is recovering. She lost weight and has not been eating well. Her BP is controlled off all of her medications. She also is not taking her sulfonylurea. A 12 point review of systems is otherwise negative. Past Medical History: Depression Distant tobacco, quit 2006 Morbid obesity MADDY dx 2007 Asthma HTN DM2 dx 2007 HLD Nephrolithiasis - ureteral stent placement Chronic neck pain with C-spine narrowing PMR dx 2020 GERD with esophogeal stricture s/p dilation YOSELIN & BSO Appy SARS-CoV2 viremia 03/2021 Allergies to Statins, Tramadol, Symbicort Medications: CPAP Amlodipine 5 mg PO Qday - not taking while convalescing from SARS-CoV2 Lisinopril 20 mg PO Qday - not taking while convalescing from SARS-CoV2 Trulicity 0.75 mg SQ Qweek Glimipiride 5 mg PO QAM AC - not taking while convalescing from SARS-CoV2 Mybetriq 25 mg PO Qday PRN - not taking while convalescing from SARS-CoV2 Ferrous sulfate PO Qday - not taking while convalescing from SARS-CoV2 Cyanocobalmin 1000 mCg IM Qmonth Ergocalciferol 50,000 units PO Qweek - not taking while convalescing from SARS-CoV2 Family History: family history is not on file. Social History: reports that she has never smoked. She does not have any smokeless tobacco history on file. She reports current alcohol use. She reports that she does not use drugs. 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 EXAM: BP 120/50 (BP Location: Right upper arm, Patient Position: Sitting) Pulse 88 Temp 96.2 ??F Resp 18 Ht 5' 2 (1.575 m) Wt 210 lb (95.3 kg) SpO2 96% BMI 38.41 kg/m?? NAD, alert and appropriate No JVD, [...] mg/dL 9.2 9.0 PHOSPHORUS mg/dL 3.6 3.3 ALBUMIN, S/P g/dL 4.1 3.8 ALBUMIN g/dL -- 3.6* MAGNESIUM mg/dL -- 1.6 HEMOGLOBIN A1C % of total Hgb 6.3* -- Labs Lab Units 07/01/20109904/14/20 0830 HEMOGLOBIN g/dL 9.7* 9.3* PLATELETS AUTO Thousand/uL 237 198 IRON mcg/dL 46 -- FERRITIN ng/mL 43 -- TIBC mcg/dL (calc) 335 -- IRON SATURATION % (calc) 14* -- Urine Lab Units 07/01/20 1100 04/14/20 0830 PROT/CREAT RATIO UR mg/g creat -- 0.208* 208* ALB MG/G CREAT UR mcg/mg creat 30* 17 Labs 04/27/21: Cr 1.90, BUN 24, K [...] 77, CRP 1.1 (nl < 1.0), Labs 4/16/21: Cr 1.40, BUN 14, K 3.9, Na [...] disease (HCC) Pure hypercholesterolemia, not otherwise specified Expected: 04/28/2021, Expires: 05/29/2022 Magnesium Lab Routine Stage 3 chronic kidney disease, not otherwise specified (HCC) Nephrolithiasis Obstructive sleep apnea syndrome H/O: anemia - iron deficient Hypertension Type 2 diabetes mellitus with diabetic chronic kidney disease (HCC) Pure hypercholesterolemia, not otherwise specified Expected: 04/28/2021, Expires: 05/29/2022 Vitamin D 25 hydroxy Lab Routine Stage 3 chronic kidney disease, not otherwise specified (HCC) Nephrolithiasis Obstructive sleep apnea syndrome H/O: anemia - iron deficient Hypertension Type 2 diabetes mellitus with diabetic chronic kidney disease (HCC) Pure hypercholesterolemia, not otherwise specified Expected: 04/28/2021, Expires: 05/29/2022 Hemoglobin A1c Lab Routine Stage 3 chronic kidney disease, not otherwise specified (HCC) Nephrolithiasis Obstructive sleep apnea syndrome H/O: anemia - iron deficient Hypertension Type 2 diabetes mellitus with diabetic chronic kidney disease (HCC) Pure hypercholesterolemia, not otherwise specified Expected: 04/28/2021, Expires: 05/29/2022 documented as of this encounter Visit Diagnoses Diagnosis Stage 3 chronic kidney disease, not otherwise specified (HCC)- Primary Nephrolithiasis Obstructive sleep apnea syndrome H/O: anemia - iron deficient Hypertension Type 2 diabetes mellitus with diabetic chronic kidney disease (HCC) Pure hypercholesterolemia, not otherwise specified documented in this encounter
--- OUTSIDE RECORDS SUMMARY | 2024-07-02 20:33 | XMS_ITS | Encounter Summary ---
Author Organization [facility] [employer] [facility] Address [address] [place] [phone] Phone Care Team Providers Care Flight Test Engineer Name Role Phone Unavailable Primary Care Provider Unavailabl e Encounter Details Date Type Department Care Team (Late st Contact Info) Description 05/01/2021 Documentation Only [place] [email or web address] [address] [address] Hay Jerez, DO [address] [place] [phone] Social History Tobacco Use Types Packs/Day [...]
--- OUTSIDE RECORDS SUMMARY | 2024-07-02 20:33 | XMS_ITS | Encounter Summary ---
Author Organization [facility] [employer] CARE [employer] [facility] Address [address] [facility] [place] [address] Phone Care Team Providers Care Recreation Superintendent Name Role Phone Unavailable Primary Care Provider Unavailabl e Encounter Details Date Type Department Care Team (Late st Contact Info) Description 04/24/2021 Orders Only [place] [email or web address], [facility] [address] [facility] 15 [place] [address] Hay Jerez, DO [address] [facility] 1 [place] [address] Social History Tobacco Use Types [...]
--- OUTSIDE RECORDS SUMMARY | 2024-07-02 20:33 | XMS_ITS | Clinical Summary ---
Author Organization Formerly [facility] Facility Address [address] [address] Care Team Providers Care Cut Off Tender Glass Name Role Phone Wiley Causey MD Primary Care Provider [phone] Allergies Active Allergy Reactions Criticality Noted Date Comments Atorvastatin Hives High 12/03/2020 Budesonide-Formoterol Fumarate Other (see comments) Medium 09/15/2018 Muscle spasms Statins Other (see comments) 04/28/2021 Tramadol Hives,Other (see comments) High 09/15/2018 Medications * This document contains information received from the source organization and may not represent a complete record from that organization. Cyanocobalamin 1000 MCG capsule Take 1 capsule by mouth 1 (one) time each day 08/19/2020 Active Dulaglutide (Trulicity) 1.5 MG/0.5ML solution pen-injector .075 per pcp 09/24/2020 Act jay glimepiride (AMARYL) 1 MG tablet Take 1 mg by mouth 1 (one) time each day 03/12/2021 Active SITagliptin (JANUVIA) 50 MG tablet Take 50 mg by mouth daily 03/20/2020 Active predniSONE 5 MG tablet TAKE 1 TABLET BY MOUTH TWICE DAILY FOR 1 MONTH AND THEN REDUCE TO ONCE DAILY 03/03/2021 Active Trulicity 0.75 MG/0.5ML solution pen-injector INJECT 0.75 MG UNDER THE SKIN ONCE WEEKLY 6 mL 05/28/2021 Active lisinopril 40 MG tablet Take 1 tablet (40 mg total) by mouth every night 90 tablet 1 09/15/2021 Active Social History Tobacco Use Types Packs/Day Years [...] Comments Blood Pressure 132/62 09/15/2021 2:23 PM TIRE STRIPPER Pulse 93 06/16/2021 1:49 PM TIRE STRIPPER Temperature 36.4 ??C (97.6 ??F) 09/15/2021 2:23 PM CS T Respiratory Rate 18 09/15/2021 2:23 PM TIRE STRIPPER Oxygen Saturation 98% 09/15/2021 2:23 PM TIRE STRIPPER Inhaled Oxygen Concentration - - Weight 101 kg (223 lb) 09/15/2021 2:23 PM TIRE STRIPPER Height 157.5 cm (5' 2 ) 09/15/2021 2:23 PM TIRE STRIPPER Body Mass Index 40.79 09/15/2021 2:23 PM TIRE STRIPPER Plan of Treatment Health Maintenance Due Date Last Done Comments Breast Cancer Screening 1950 Pneumococcal Vaccine: 65+ Ye ars (1 of 2 - PCV) 1958 Colorectal Cancer Screening: Annual FOBT 2001 Colorectal Cancer Screening: Colonoscopy 2001 Colorectal Cancer Screening: Sigmoidoscopy 2001 Diabetes: Hemoglobin A1C 12/11/2020 07/01/2020 Diabetes: Ophthalmology Exam 12/11/2020 Diabetes: Pedal Pulse Checked 12/11/2020 Diabetes: Sensory Foot Exam 12/11/2020 Diabetes: Visual Foot Exam 12/11/2020 Influenza Vaccine (#1) 2024 Hepatitis B Vaccine Aged Out No longe r eligible based on patient's age to complete this topic Procedures Procedure Name Priority Date/Time Associated Diagnosis Comments HEMOGLOBIN A1C Routine 07/01/2020 11:00 AM TIRE STRIPPER from Last 3 Months or Most Recently Relevant to Health Maintenance Results * (ABNORMAL) Hemoglobin A1c (07/01/2020 11:00 AM TIRE STRIPPER) Hemoglobin A1C 6.3(H) <5.7 % of total Hgb [facility] Comment: For someone without known diabetes, a hemoglobin A1c value between 5.7% and 6.4% is consistent with prediabetes and should be confirmed with a follow-up test. For someone with known diabetes, a value <7% indicates that their diabetes is well controlled. A1c targets should be individualized based on duration of diabetes, age, comorbid conditions, and other considerations. This assay result is consistent with an increased risk of diabetes. Currently, no consensus exists regarding use of hemoglobin A1c for diagnosis of diabetes for children. 07/01/2020 11:0 0 AM TIRE STRIPPER us Hay Jerez DO LAB BLOOD ORDERABLES Final R esult [facility] from Last 3 Months or Most Recently Relevant to Health Maintenance Insurance HU[employer]NA MEDICARE [place] Care Teams Cut Off Tender Glass Relationship Specialty Start Date End Date Wiley Causey MD [address] [place] [id number] PCP - General Family Medicine 06/17/21
--- OUTSIDE RECORDS SUMMARY | 2024-07-02 20:33 | XMS_ITS | Encounter Summary ---
Author Organization [employer] [facility] , [facility] Address [address] [facility] [place] [address] Phone Care Team Providers Care Aerologist Name Role Phone Unavailable Primary Care Provider Unavailabl e Reason for Visit * Reason Onset Date Comments Med Refill 03/24/2021 Encounter Details Date Type Department Care Team (Late st Contact Info) Description 03/24/2021 Refill [facility], [facility] [address] [facility] [address] [place] [address] Alix Moreira [facility] [address] [place] [address] [place] [address] Social History Tobacco Use Types [...]
--- OUTSIDE RECORDS SUMMARY | 2024-07-02 20:33 | XMS_ITS | Encounter Summary ---
Author Organization [facility] Address [address] [address] Phone Care Team Providers Care Nursery Technician Name Role Phone Unavailable Primary Care [...] Expiration Date V isits Requested Visits Authorized [id number] Closed Consult and Treat 03/24/2021 04/23/2021 12 12 Encounter Details Date Type Department Care Team (Late st Contact Info) Description 03/24/2021 2:45 PM CDT Office Visit [place] [facility], [facility] [address] [facility] [address] [place] [address] Hay Jerez DO [address] [facility] 1 [place] [address] Acute injury of kidney (HCC) (Primary Dx); Stage 3 chronic kidney disease, not otherwise [...] Sign Reading Time Taken Comments Blood Pressure 140/62 03/24/2021 2:47 PM CDT Pulse 100 03/24/2021 2:47 PM CDT Temperature 36.4 ??C (97.6 ??F) 03/24/2021 2:47 PM CD T Respiratory Rate 18 03/24/2021 2:47 PM CDT Oxygen Saturation 96% 03/24/2021 2:47 PM CDT Inhaled Oxygen Concentration - - Weight 98.4 kg (217 lb) 03/24/2021 2:47 PM CDT Height 157.5 cm (5' 2 ) 03/24/2021 2:47 PM CDT Body Mass Index 39.69 03/24/2021 2:47 PM CDT documented in this encounter Progress Notes * Hya Jerez MD - 03/24/2021 2:45 PM CDT Images from the original note were not included. CC: Dr. Angel Cottrell, DO Dr. Lopez (Urology [facility]) ASSESSMENT: Acute kidney injury of unclear etiology. UA with pyuria. Baseline stage 3 chronic kidney disease. OAB Nephrolithiasis with 1.4 cm left renal stone s/p extraction Jul 2020 Obesity with MADDY Anemia due to B12 deficiency and iron deficiency GERD with history of esophageal stricture on PPI HTN DM2 HLD PLAN: - Ergocalciferol 50,000 units PO Qweek #12 with 1 refill - consider cessation of the steroids. - discussed high fluid intake and low salt intake to avoid kidney stones. - Return with labs in 1 month. SUBJECTIVE: Mrs. Edith Mayo is a 70 y.o. WF with a PMHx of distant tobacco, Obesity with MADDY, HTN, DM2 dx 2007, HLD, Nephrolithasis and stage 3b-4 chronic kidney disease for which she follows in our office. Her Scr 2.2 mg/dL estimating a GFR of about 20 - 25 mL/min. Her established baseline Scr is 1.5 - 1.8 mg/dL. Her urines show some trace LE. She had been started on steroids for osteoarthritis by Dr. Rosen. These were stopped after herknee surgery in September. She continued to have pain in her knee, but no pain in the joints of the hands or feet, no myalgias. Rheumatology appreciated a high ESR and started Prednisone for possible PMR. A 12 point review of systems is otherwise negative. Past Medical History: Depression Distant tobacco, quit 2007 Morbid obesity MADDY dx 2007 Asthma HTN DM2 dx 2007 HLD Nephrolithiasis - ureteral stent placement Chronic neck pain with C-spine narrowing GERD with esophogeal stricture s/p dilation YOSELIN & BSO Appy Allergies to Statins, Tramadol, Symbicort Medications: Prednisone 40 mg PO Qday - with a taper over 2 months Amlodipine 5 mg PO Qday Lisinopril 20 mg PO Qday Trulicity 0.75 mg SQ Qweek Glimipiride 5 mg PO QAM AC Mybetriq 25 mg PO Qday PRN Ferrous sulfate PO Qday Cyanocobalmin 1000 mCg IM Qmonth Family History: family history is not on file. Social History: reports that she has never smoked. She does not have any smokeless tobacco history on file. She reports current alcohol use. She reports that she does not use drugs. 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 EXAM: BP 140/62 Pulse 100 Temp 97.6 ??F Resp 18 Ht 5' 2 (1.575 m) Wt 217 lb (98.4 kg) SpO2 96% BMI 39.69 kg/m?? NAD, alert and appropriate No JVD, moist oropharynx HRRR without murmur Lungs B CTA without expiratory wheezes Abdomen benign, nontender LE without edema Skin without petechae, purpura or livido Gait normal No focal neurologic deficits RESULTS: Chemistry Lab Units 07/01/20 1100 04/14/20 0830 CREATININE mg/dL 2.20* 1.77* EGFRAFR mL/min/1.73m2 [...] CREAT UR mcg/mg creat 30* 17 Labs 02/17/21: VitD 20, Labs 02/17/21: UA [...] r Schedule Renal function panel Lab Routine Acute injury of kidney (HCC) Stage 3 chronic kidney disease, not otherwise specified (HCC) Nephrolithiasis Obstructive sleep apnea syndrome H/O: anemia - iron deficient Hypertension Type 2 diabetes mellitus with diabetic chronic kidney disease (HCC) Pure hypercholesterolemia, not otherwise specified Expected: 03/24/2021, Expires: 04/23/2022 Magnesium Lab Routine Acute injury of kidney (HCC) Stage 3 chronic kidney disease, not otherwise specified (HCC) Nephrolithiasis Obstructive sleep apnea syndrome H/O: anemia - iron deficient Hypertension Type 2 diabetes mellitus with diabetic chronic kidney disease (HCC) Pure hypercholesterolemia, not otherwise specified Expected: 03/24/2021, Expires: 04/23/2022 Urine Protein / creatinine ratio Lab Routine Acute injury of kidney (HCC) Stage 3 chronic kidney disease, not otherwise specified (HCC) Nephrolithiasis Obstructive sleep apnea syndrome H/O: anemia - iron deficient Hypertension Type 2 diabetes mellitus with diabetic chronic kidney disease (HCC) Pure hypercholesterolemia, not otherwise specified Expected: 03/24/2021, Expires: 04/23/2022 Urine Albumin / Creatinine Ratio Lab Routine Acute injury of kidney (HCC) Stage 3 chronic kidney disease, not otherwise specified (HCC) Nephrolithiasis Obstructive sleep apnea syndrome H/O: anemia - iron deficient Hypertension Type 2 diabetes mellitus with diabetic chronic kidney disease (HCC) Pure hypercholesterolemia, not otherwise specified Expected: 03/24/2021, Expires: 04/23/2022 Urinalysis with microscopic Lab Routine Acute injury of kidney (HCC) Stage 3 chronic kidney disease, not otherwise specified (HCC) Nephrolithiasis Obstructive sleep apnea syndrome H/O: anemia - iron deficient Hypertension Type 2 diabetes mellitus with diabetic chronic kidney disease (HCC) Pure hypercholesterolemia, not otherwise specified Expected: 03/24/2021, Expires: 04/23/2022 Vitamin D 25 hydroxy Lab Routine Acute injury of kidney (HCC) Stage 3 chronic kidney disease, not otherwise specified (HCC) Nephrolithiasis Obstructive sleep apnea syndrome H/O: anemia - iron deficient Hypertension Type 2 diabetes mellitus with diabetic chronic kidney disease (HCC) Pure hypercholesterolemia, not otherwise specified Expected: 03/24/2021, Expires: 04/23/2022 C4 complement Lab Routine Acute injury of kidney (HCC) Stage 3 chronic kidney disease, not otherwise specified (HCC) Nephrolithiasis Obstructive sleep apnea syndrome H/O: anemia - iron deficient Hypertension Type 2 diabetes mellitus with diabetic chronic kidney disease (HCC) Pure hypercholesterolemia, not otherwise specified Expected: 03/24/2021, Expires: 04/23/2022 C3 complement Lab Routine Acute injury of kidney (HCC) Stage 3 chronic kidney disease, not otherwise specified (HCC) Nephrolithiasis Obstructive sleep apnea syndrome H/O: anemia - iron deficient Hypertension Type 2 diabetes mellitus with diabetic chronic kidney disease (HCC) Pure hypercholesterolemia, not otherwise specified Expected: 03/24/2021, Expires: 04/23/2022 Protein electrophoresis, serum Lab Routine Acute injury of kidney (HCC) Stage 3 chronic kidney disease, not otherwise specified (HCC) Nephrolithiasis Obstructive sleep apnea syndrome H/O: anemia - iron deficient Hypertension Type 2 diabetes mellitus with diabetic chronic kidney disease (HCC) Pure hypercholesterolemia, not otherwise specified Expected: 03/24/2021, Expires: 04/23/2022 TSH w/reflex to FT4 Lab Routine Acute injury of kidney (HCC) Stage 3 chronic kidney disease, not otherwise specified (HCC) Nephrolithiasis Obstructive sleep apnea syndrome H/O: anemia - iron deficient Hypertension Type 2 diabetes mellitus with diabetic chronic kidney disease (HCC) Pure hypercholesterolemia, not otherwise specified Expected: 03/24/2021, Expires: 04/23/2022 [place]/Lambda free LT chains w/ratio Lab Routine Acute injury of kidney (HCC) Stage 3 chronic kidney disease, not otherwise specified (HCC) Nephrolithiasis Obstructive sleep apnea syndrome H/O: anemia - iron deficient Hypertension Type 2 diabetes mellitus with diabetic chronic kidney disease (HCC) Pure hypercholesterolemia, not otherwise specified Expected: 03/24/2021, Expires: 04/23/2022 Sedimentation Rate Lab Routine Acute injury of kidney (HCC) Stage 3 chronic kidney disease, not otherwise specified (HCC) Nephrolithiasis Obstructive sleep apnea syndrome H/O: anemia - iron deficient Hypertension Type 2 diabetes mellitus with diabetic chronic kidney disease (HCC) Pure hypercholesterolemia, not otherwise specified Expected: 03/24/2021, Expires: 04/23/2022 documented as of this encounter Visit Diagnoses Diagnosis Acute injury of kidney- Primary Stage 3 chronic kidney disease, not otherwise specified (HCC) Nephrolithiasis Obstructive sleep apnea syndrome H/O: anemia - iron deficient Hypertension Type 2 diabetes mellitus with diabetic chronic kidney disease (HCC) Pure hypercholesterolemia, not otherwise specified documented in this encounter
--- OUTSIDE RECORDS SUMMARY | 2024-07-02 20:33 | XMS_ITS | Encounter Summary ---
Author Organization [facility] Address [address] [place] [address] Phone Care Team Providers Care Manager Intranet Name Role Phone Unavailable Primary Care Provider Unavailabl e Encounter Details Date Type Department Care Team (Late st Contact Info) Description 05/01/2021 Documentation Only [facility] [address] [address] Hay Jerez, DO [address] [place] [address] Social History Tobacco Use Types Packs/Day [...]
== END 2024-06-29 14:26 | disposition home or self-care (01) ==
LOC: ANHIMG 14:26
PROVIDERS: PCP Nurse Practitioner Adult Health; Visit Provider Nurse Practitioner Adult Health
DX: Z12.31 Encounter for screening mammogram for malignant neoplasm of breast (principal)
CPT/HCPCS: 77063; 77067

== ENCOUNTER 2024-07-19 12:30 | Outpatient (RCR) | payer MEDICARE, MEDICAID, SELFPAY ==
--- NOTE | 2024-06-11 13:29 | OPREHPOC ---
Outpatient Therapy Plan of Care This is a Multidisciplinary Plan of Care that may contain components documented by all disciplines (PT, OT, and ST.) PT Problem 1 PT Problem #1 Knowledge Deficit PT Goal 1 Goal / Goal Update *indep with HEP Target Visit 10 PT Problem 2 PT Problem #2 Pain PT Goal 1 Goal / Goal Update *pt report pain rating of back at worst of 02/24 * pt report with sleeping awaken 2x/night due to pain Target Visit 10 PT Goal 2 Goal / Goal Update *radicular pain to mid posterior thigh at worst Target Visit 10 PT Problem 3 PT Problem #3 Impaired Functional Mobil PT Goal 1 Goal / Goal Update * 2 minute walking test distance of 275' Target Visit 10 PT Problem 4 PT Problem #4 Impaired Strength PT Goal 1 Goal / Goal Update increase strength of hips and trunk, to improve stability to spine * pt perform 20 reps of standing R and L LE exercises with good stability Target Visit 10 PT Problem 5 PT Problem #5 Impaired Flexibility PT Goal 1 Goal / Goal Update pt perform L hip supine flexion, IR and ER motions without an increase in pain Target Visit 10
--- NOTE | 2024-06-11 13:29 | PTOPEVAL1 ---
Assessment and note entered by Jaz Marin PT Evaluation Information Assessment Status Evaluation ICD-10 Condition Codes (PT) M54.16 Other ICD-10 Condition Codes ( spinal stenosis M48.062 PT) Onset January 2024 Subjective Information gradual increase in her chronic pain in her back; to have MRI of low back this Tuesday; have seen ortho dr for knee injections- need TKR; also have neck and L shoulder/radicular pain; activity: use quad cane in community/ no device in her home; is able to do self care and light cooking, cleaning; daughter assists with heavier home tasks; more pain with activity; Reported Pain Level Pain Score Self Report Additional Pain Score Comments pain range in the past week 3-10/10; R > L low back, with constant pain posterior LE to popliteal crease; increase pain: sitting 30 minutes, bending forward/getting dressed with shoes and socks; decrease pain: change positions; hydrocodone PRN ~ 2-3 x/wk; awaken from sleeping 2x/night does not use heat/ice- instruct on PRN use; also have pain in neck- L arm radicular; L knee pain- get injections. Assessment PT Clinical Summary Edith has the diagnosis of lumbar radiculopathy and canal stenosis. Radicular pain is constant into R and L LE to posterior knees. Self assessment Oswestry rating of 46% limitation in activity level. She reports chronic back pain with gradual increase in pain, without injury or trauma. She also has L knee pain, with previous arthroscopy and gets regular injections into her knee. The ortho dr told her she needs a TKR. Also have orders for neck and L UE pain. Pt chose to start with treatment for her back. With the evaluation: standing trunk extension increases pain more than flexion; supine position increases her pain; hamstring stretch caused pain in both legs; side lying hip abduction increases pain; she stands with R hip elevated and has flat lumbar spine with decreased motion of standing trunk flexion and extension. Skilled PT services are indicated for aquatic therapy, for the buoyancy effects of the warm water and ease of motion and land therapy-- modalities to decrease pain, therapeutic exercises to increase strength and flexibility of hips and trunk, with education for HEP and pain control. Plan of Care Interventions Aquatic Therapy,Electrical Stimulation,Hot Pack/ Cold Pack,Manual Therapy,Mechanical Traction,Neuro Re-education,Patient/Caregiver Education, Therapeutic Activities,Therapeutic Exercise, Ultrasound,Other Other Interventions taping PT Services Indicated Yes Treatment Frequency and 1-2x/wk for 10 visits Duration These treatments will address the objective and functional deficits as defined above. The patient will be advanced safely and appropriately in order for the patient to progress towards his/her prior level of function. Additional exercises will be introduced and as well as a comprehensive home exercise program upon discharge, if needed, ?to ensure carryover of functional gains achieved in the clinic. This treatment plan has been reviewed and agreement upon by the patient.
--- NOTE | 2024-07-19 13:15 | PTOPDC ---
Assessment and note entered by Jaz Marin, PT Assessment Status Discharge ICD-10 Condition Codes (PT) Radiculopathy, lumbar region M54.16 Other ICD-10 Condition Codes ( spinal stenosis M48.062 PT) Onset January 2024 Subjective Information liked the water exercises, felt little better after them but did not last; nothing really seems to help my back; to have neck injections at beginning of Aug; have not gotten approval for the back injections; using the wheeled walker most of the time and that has helped some; feel like therapy for her back is not helping, want to stop for now. Reported Pain Level Pain Score Self Report Additional Pain Score Comments pain range in the past week 5-10/10; low back and into posterior R and L LE to knees ~ 75% day; pain awakens her from sleeping 2-3 x/night due to back pain; decrease pain with heat and change position baclofen has helped some; have run out of the hydrocodone- have to get a refill from dr; also have pain in neck and L knee Assessment PT Clinical Summary Edith has received a total of 7 PT sessions, on land and in water. Compared to the initial evaluation: pain rating from 3-10/10 to 5-10/10; continues to have radicular pain into both R and L LE to posterior knee; sleep is disrupted due to pain, awakening 2-3 x/night; self assessment Oswestry rating of 62% limitation in activity level; was walking with a quad cane and now is using a rollator walker, which has improved her gait pattern and 2 minute walking test distance from 215' to 270'; education completed for HEP and safety with mobility. The goals were partially met. Discharge PT services. She is to continue with her HEP and walking, mobility as pain allows. She understands that she needs to keep moving. Plan of Care PT Services Indicated No
== END 2024-07-19 16:31 | disposition home or self-care (01) ==
LOC: ANHPT 12:30
PROVIDERS: PCP Nurse Practitioner Adult Health; Visit Provider Anesthesiology Pain Medicine
DX: G56.02 Carpal tunnel syndrome, left upper limb (principal); M19.012 Primary osteoarthritis, left shoulder; M54.6 Pain in thoracic spine; M48.062 Spinal stenosis, lumbar region with neurogenic claudication; M47.817 Spondylosis without myelopathy or radiculopathy, lumbosacral region
CPT/HCPCS: 97110; 97113; 97140; 97161; 97530

== ENCOUNTER 2024-07-25 07:14 | Outpatient (CLI) | payer MEDICARE, MEDICAID, SELFPAY ==
[2024-07-25 20:03] LABS: Creatinine Urine 161.4 mg/dL; Total Protein Urine Random 9 mg/dL; Ur Ttl Prot Creatinine Ratio 0.06 mg/mg (0-0.20)
[2024-07-25 20:39] LABS: Albumin Level 3.8 g/dL (3.5-5.1); Anion Gap 4 mmol/L (4-12); Blood Urea Nitrogen 12 mg/dL (7-17); Calcium 8.5 mg/dL (8.4-10.2); Carbon Dioxide 29 mmol/L (22-30); Chloride 106 mmol/L (98-107); Estimated Glomerular Filt Rate 34; Glucose 149 mg/dL (65-110); Phosphorus 3.8 mg/dL (2.5-4.5); Potassium 4.1 mmol/L (3.4-5.0); Sodium 139 mmol/L (137-145)
== END 2024-07-25 07:15 | disposition home or self-care (01) ==
PROVIDERS: PCP Nurse Practitioner Adult Health; Visit Provider Internal Medicine Nephrology
DX: I12.9 Hypertensive chronic kidney disease with stage 1 through stage 4 chronic kidney disease, or unspecified chronic kidney disease (principal); N18.4 Chronic kidney disease, stage 4 (severe); E11.22 Type 2 diabetes mellitus with diabetic chronic kidney disease; N20.0 Calculus of kidney
CPT/HCPCS: 36415; 80069; 82570; 84156

== ENCOUNTER 2024-08-21 12:20 | Outpatient (CLI) | payer MEDICARE, MEDICAID, SELFPAY ==
--- OUTSIDE RECORDS SUMMARY | 2024-08-21 12:24 | XMS_ITS | Clinical Summary ---
Author Organization [facility] Address [address] [address] Phone Care Team Providers Care Biophysics Teacher Name Role Phone Wiley Causey MD Primary Care Provider [phone] Allergies Active Allergy Reactions Criticality Noted Date [...] on file Legal Sex Female 2:49 PM WAITER/WAITRESS CAFETERIA Gender Identity Not on file Sexual Orientation Not on file Last Filed Vital Signs Vital Sign Reading Time Taken Comments Blood Pressure 171/96 05/22/2019 12:50 AM WAITER/WAITRESS CAFETERIA Pulse 93 05/22/2019 12:50 AM WAITER/WAITRESS CAFETERIA Temperature 37.1 ??C (98.7 ??F) 05/21/2019 8:14 PM CS T Respiratory Rate 30 05/22/2019 12:50 AM WAITER/WAITRESS CAFETERIA Oxygen Saturation 90% 05/22/2019 12:50 AM WAITER/WAITRESS CAFETERIA Inhaled Oxygen Concentration - - Weight 104.3 kg (230 lb) 05/21/2019 8:14 PM WAITER/WAITRESS CAFETERIA Height 157.5 cm (5' 2 ) 05/21/2019 8:14 PM WAITER/WAITRESS CAFETERIA Body Mass Index 42.07 05/21/2019 8:14 PM WAITER/WAITRESS CAFETERIA Plan of Treatment Health Maintenance Due Date Last Done Comments DEXA Bone Density 1950 Hepatitis C Virus (HCV) Screening 1950 TdaP Immunization 1950 Cologuard 2002 Immunochemical Fecal Occult Blood 2002 Mammogram 2002 Pneumococcal Immunization (5 0+ years) (2 of 2 - PPSV23) 07/18/2018 07/18/2017, 04/05/2017 Colonoscopy 09/27/2023 09/26/2018 Colorectal [...] MEDICARE C [place] Care Teams Biophysics Teacher Relationship Specialty Start Date End Date Wiley Causey MD [address] [place] [address] PCP - General Family Medicine 06/28/22
--- OUTSIDE RECORDS SUMMARY | 2024-08-21 12:24 | XMS_ITS | Clinical Summary ---
Author Organization [facility] Address [address] [place] [address] Care Team Providers Care Veneer Drier Tailer Name Role Phone Angel Cottrell DO Primary Care Provider [phone] Allergies Active Allergy Reactions Criticality Noted Date [...] mouth daily Monthly infusion Active vit D3-vit Y-stjilexzm-jvw s 150-249-50-370 eepm-bst-wm-mg tablet Take by mouth Active ergocalciferol (VITAMIN [...] - continue medication and follow up with Camera Maker. MADDY (obstructive sleep apnea) 03/20/2020 Type 2 [...] on file Legal Sex Female 8:44 PM SUPERVISOR CAB Gender Identity Not on file Sexual Orientation [...] HUMANA CHOICE MEDICARE PPO [place] Care Teams Veneer Drier Tailer Relationship Specialty Start Date End Date Angel Cottrell DO PCP - General Family Medicine 03/11/20
--- OUTSIDE RECORDS SUMMARY | 2024-08-21 12:24 | XMS_ITS | Clinical Summary ---
Author Organization [facility] Facility Address [address] [address] Care Team Providers Care Supervisor Channel Process Name Role Phone Wiley Causey MD Primary Care Provider [phone] Allergies Active Allergy Reactions Criticality Noted Date [...] Comments Blood Pressure 132/62 09/15/2021 2:23 PM PERCUSSION TEACHER Pulse 93 06/16/2021 1:49 PM PERCUSSION TEACHER Temperature 36.4 ??C (97.6 ??F) 09/15/2021 2:23 PM CS T Respiratory Rate 18 09/15/2021 2:23 PM PERCUSSION TEACHER Oxygen Saturation 98% 09/15/2021 2:23 PM PERCUSSION TEACHER Inhaled Oxygen Concentration - - Weight 101 kg (223 lb) 09/15/2021 2:23 PM PERCUSSION TEACHER Height 157.5 cm (5' 2 ) 09/15/2021 2:23 PM PERCUSSION TEACHER Body Mass Index 40.79 09/15/2021 2:23 PM PERCUSSION TEACHER Plan of Treatment Health Maintenance Due Date [...] Comments HEMOGLOBIN A1C Routine 07/01/2020 11:00 AM PERCUSSION TEACHER from Last 3 Months or Most Recently Relevant to Health Maintenance Results * (ABNORMAL) Hemoglobin A1c (07/01/2020 11:00 AM PERCUSSION TEACHER) Hemoglobin A1C 6.3(H) <5.7 % of total [...] diabetes for children. 07/01/2020 11:0 0 AM PERCUSSION TEACHER us Hay Jerez DO LAB BLOOD ORDERABLES Final R esult [facility] from Last 3 Months or Most Recently Relevant to Health Maintenance Insurance [employer] MEDIC[place] Care Teams Supervisor Channel Process Relationship Specialty Start Date End Date Wiley Causey MD [address] [place] [phone] PCP - General Family Medicine 06/17/21
--- OUTSIDE RECORDS SUMMARY | 2024-08-21 12:24 | XMS_ITS | Referral Summary ---
Author Organization [facility] Address [address] [place] [address] Care Team Providers Care Cruller Maker Name Role Phone Angel Cottrell DO Primary Care Provider [phone] Allergies Active Allergy Reactions Criticality Noted Date [...] mouth daily Monthly infusion Active vit D3-vit O-yynkemznt-fte s [id number] cfpe-glv-ro-mg tablet Take by mouth Active ergocalciferol (VITAMIN [...] - continue medication and follow up with Yeast Tender. MADDY (obstructive sleep apnea) 03/20/2020 Type 2 [...] on file Legal Sex Female 8:44 PM HEAVY EQUIPMENT OPERATOR/PAVER Gender Identity Not on file Sexual Orientation [...] file Insurance HUMANA CHOICE MEDICARE PPO IDPA [place] [id number] HU[employer]NA CHOICE MEDICARE PPO [place]PA Care Teams Cruller Maker Relationship Specialty Start Date End Date Angel Cottrell DO PCP - General Family Medicine 03/11/20
--- OUTSIDE RECORDS SUMMARY | 2024-08-21 12:24 | XMS_ITS | Clinical Summary ---
Author Organization [facility] Address [address] [place] [address] Phone Care Team Providers Care Talk Show Host Name Role Phone Wiley Causey MD Primary Care Provider [phone] Allergies Active Allergy Reactions Criticality Noted Date [...] - continue medication and follow up with Director Bioinformatics. Obstructive sleep apnea syndrome 03/20/2020 Type 2 [...] Comments Pneumococcal PPSV23/PCV13 65 + Years / Low and Medium Risk (1 of 4 - PCV) 2017 Influenza Vaccine (#1) 2024 Care Teams Talk Show Host Relationship Specialty Start Date End Date Wiley Causey MD PCP - General Family Medicine 10/05/21
--- OUTSIDE RECORDS SUMMARY | 2024-08-21 12:24 | XMS_ITS | Clinical Summary ---
Author Organization [facility] Address [address] [place] [address]. [place], [place] [address] [place] [address] Care Team Providers Care Real Estate Officer Name Role Phone Unavailable Primary Care Provider [...] 1992 Zoster Vaccines (1 of 2) 2002 Dexa Scan (General) 2017 Pneumococcal Vaccine: 65+ Ye ars (1 of 1 - PCV) 2017 COVID-19 Vaccine ( - 2023-2 5 season) 2024 Influenza Adult (#1) 2024 RSV Immunization or 60+ Years (1 - 1-dose 75+ series) 2027 Meningococcal B Vaccine Aged Out No l onger eligible based on patient's age to complete this topic Meningococcal Vaccine Aged Out No radha michael eligible based on patient's age to complete this topic RSV Immunizations Under 20 Months Aged Out No longer eligible based on patient's age to complete this topic
--- OUTSIDE RECORDS SUMMARY | 2024-08-21 12:25 | XMS_ITS | Clinical Summary ---
Author Organization [facility] Jeffery payan [facility] Address [address] [address] Care Team Providers Care Traffic Engineer Name Role Phone Wiley Causey MD Primary Care Provider [phone] Allergies Active Allergy Reactions Criticality Noted Date Comments Atorvastatin Hives High 12/03/2020 Budesonide-Formoterol Muscle Pain Medium 11/26/2020 Ugmaxvx-Nei-Csv Reductase Inhibitors Other (See Comments) 04/28/2021 Tramadol Hives High 09/15/2018 Medications amLODIPine (NORVASC) 5 mg tablet Take 5 mg by mouth. 05/22/20 19 Active betamethasone valerate (VALISONE) 0.1 % Cream Apply to affected area. Active blood sugar diagnostic Strip TEST BS ONCE D 03/09/20 20 Active dulaglutide (Trulicity) 1.5 mg/0.5 mL injection .075 per pcp 09/25/19 21 Active glimepiride (AMARYL) 1 mg tablet 1 mg. 03/29/20 19 Active lancets USE TO TEST ONCE DAILY 03/09/20 20 Active lisinopriL (PRINIVIL) 20 mg tablet Take 20 mg by mouth. Active Vit D3 & K-Mmolsayqs-T ops [phone] cuzk-rvc-da-m g Tablet Take by mouth. Activ e omeprazole (PriLOSEC) 40 mg Capsule, Delayed Release(E.C.) Take 40 mg by mouth daily. Active topiramate (TOPAMAX) 25 mg tablet Take 25 mg by mouth daily. 08/04/19 22 Active Ozempic 1 mg/dose (4 mg/3 mL) Pen Injector 10/27/19 22 Active predniSONE (DELTASONE) 1 mg tablet TAKE 4 TABLETS BY MOUTH DAILY 10/17/19 Active allopurinoL (ZYLOPRIM) 300 mg tablet Take 300 mg by mouth daily. 10/21/19 Active Syringe with Needle, Disp, 1 mL 27 x 1/2 SyringeIndica tions:Other dietary vitamin B12 deficiency anemia Use 1 syringe to inject 1000 mcg vitamin B12 (1 mL) every 4 weeks. 1 Each 06/13/20 24 Active HYDROcodone-a cetaminophen (NORCO) 5-325 mg tablet Take 1 Tablet by mouth every 8 hours as needed. 06/19/20 24 Active cyanocobalami n (VITAMIN B-12) 1,000 mcg/mL SolutionIndic ations:Other dietary vitamin B12 deficiency anemia ADMINISTER 1 ML(1000 MCG) IN THE MUSCLE EVERY 30 DAYS 1 mL 07/30/19 25 Active cyanocobalami n (VITAMIN B-12) 1,000 mcg/mL SolutionIndic ations:Other dietary vitamin B12 deficiency anemia Inject 1 mL (1,000 mcg) by intramuscular injection every 30 days. 1 mL 07/30/19 25 Active cyanocobalami n (VITAMIN B-12) 1,000 mcg/mL SolutionIndic ations:Other dietary vitamin B12 deficiency anemia Inject 1 mL (1,000 mcg) by intramuscular injection every 30 days. 1 mL 06/13/20 24 025 Discontinued Active Problems Problem Noted Date Diagnosed Date Stage 3b chronic kidney disease 12/03/2020 Chronic anemia 12/03/2020 Other dietary vitamin B12 deficiency anemia 11/15 Encounters Date Type Department Care Team Description 08/09/2024 External Device Data STL ABSTRACTION Provider, Abstract 07/30/2024 Refill [facility] Oncology and Hematology - [place] [address] [place] [address] Gabo Jiang MD Other dietary vitamin B12 deficiency anemia 07/29/2024 Refill [facility] Oncology and Hematology - [place] [address] [place] [address] Gabo Jiang MD Other dietary vitamin B12 deficiency anemia 06/27/2024 10:15 AM PULLEY MORTISER OPERATOR Office Visit [facility] Oncology and Hematology - [place] [address] [place] [address] Gabo Jiang MD Chronic anemia (Primary Dx) 06/19/2024 Orders Only [facility] Oncology and Hematology - [place] [address] [place] [address] Gabo Jiang MD 06/13/2024 Refill [facility] Oncology and Hematology - [place] [address] [place] [address] Gabo Jiang MD Other dietary vitamin B12 [...] at Not on file Legal Sex Female 2:03 PM CDT Gender Identity Not on file Sexual Orientation Not on file Last Filed Vital Signs Vital Sign Reading Time Taken Comments Blood Pressure 178/92 06/27/2024 10:20 AM PULLEY MORTISER OPERATOR Pulse 94 06/27/2024 10:17 AM PULLEY MORTISER OPERATOR Temperature 36.7 ??C (98 ??F) 06/27/2024 10:17 AM PULLEY MORTISER OPERATOR Respiratory Rate 17 06/27/2024 10:17 AM PULLEY MORTISER OPERATOR Oxygen Saturation 97% 06/27/2024 10:17 AM PULLEY MORTISER OPERATOR Inhaled Oxygen Concentration - - Weight 93.3 kg (205 lb 9.6 oz) 06/27/2024 10:17 AM PULLEY MORTISER OPERATOR Height 157.5 cm (5' 2 ) 04/20/2022 2:54 PM CDT Body Mass Index 37.6 04/20/2022 2:54 PM CDT Plan of Treatment Upcoming Encounters Date Type Department Care Team (Late st Contact Info) Description 12/26/2024 1:00 PM CDT Office Visit [facility] Oncology and Hematology - [place] [address] [place] [address] Gabo Jiang MD [address] [facility] [address] [place] [address] Health Maintenance Due Date Last Done Comments DIABETES ANNUAL FOOT EXAM 1970 DIABETES ANNUAL RETINAL EXAM 1970 DIABETES MICROALBUMIN ANNUAL SCREEN 1970 LDL CHOLESTEROL ANNUAL 1970 DTAP/TDAP/TD VACCINES (1 - Tdap) 1971 PNEUMOCOCCAL VACCINE 65+ YEA RS (1 of 2 - PCV) 1971 BREAST CANCER SCREENING 1992 COLORECTAL SCREENING 1997 Colorectal Cancer Screening 1997 FIT-DNA Q 3 years 1997 FIT/FOBT Q 1 year 1997 Flex Sig/CT Colonography Q 5 years 1997 ZOSTER VACCINE (1 of 2) 2002 RSV VACCINE (60+ or ) (1 - Risk 60-74 years 1-dose series) 2012 OSTEOPOROSIS SCREENING 2017 DIABETES HBA1C Q 6 MONTHS 12/30/2020 07/01/2020, 08/2019 INFLUENZA VACCINE (#1) 2024 Procedures Procedure Name Priority Date/Time Associated Diagnosis Comments BASIC METABOLIC PANEL Routine 06/18/2024 12:48 PM PULLEY MORTISER OPERATOR CBC WITH DIFFERENTIAL Routine 06/18/2024 10:45 AM PULLEY MORTISER OPERATOR from Last 3 Months Results * BASIC METABOLIC PANEL (06/18/2024 12:48 PM PULLEY MORTISER OPERATOR) Blood Gabo Jiang MD CHEMISTRY ORDERABLES Final Resu lt * CBC WITH DIFFERENTIAL (06/18/2024 10:45 AM PULLEY MORTISER OPERATOR) Blood Gabo Jiang MD HEMATOLOGY ORDERABLES Final Res ult from Last 3 Months Insurance HUMANA GOLD PLUS [facility] MEDICAID [place] Care Teams Traffic Engineer Relationship Specialty Start Date End Date Wiley Causey MD PCP - General Family Practice 08/04/21
--- NOTE | 2024-08-21 14:00 | NEURO_ITS ---
Impression: # Complains of numbness of hands. Known diabetic. ? # Mild left Carpal Tunnel Syndrome. ? # Normal needle/EMG exam. ? # Clinical correlation recommended. Nerve Conduction Studies Anti Sensory Summary Table ?Stim Site NR Peak (ms) P-T Amp (?V) Site1 Site2 Delta-P (ms) Dist (cm) Quang (m/s) Left Median Anti Sensory (2-3nd Digit) Wrist ? 4.1 26.8 Wrist 2-3nd Digit 4.1 14.0 34 Wrist ? 5.3 27.0 Wrist 2-3nd Digit 4.1 14.0 34 Right Median Anti Sensory (2-3nd Digit) Wrist ? 3.2 45.2 Wrist 2-3nd Digit 3.2 14.0 44 Wrist ? 3.2 61.8 Wrist 2-3nd Digit 3.2 14.0 44 Left Radial Anti Sensory (Base 1st Digit) Wrist ? 2.1 7.6 Wrist Base 1st Digit 2.1 0.0 Right Radial Anti Sensory (Base 1st Digit) Wrist ? 2.3 22.7 Wrist Base 1st Digit 2.3 0.0 Left Ulnar Anti Sensory (5th Digit) Wrist ? 4.4 60.4 Wrist 5th Digit 4.4 14.0 32 Right Ulnar Anti Sensory (5th Digit) Wrist ? 2.3 15.5 Wrist 5th Digit 2.3 14.0 61 Motor Summary Table ?Stim Site NR Onset (ms) O-P Amp (mV) Site1 Site2 Delta-0 (ms) Dist (cm) Quang (m/s) Left Median Motor (Abd Poll Brev) Wrist ? 4.1 3.1 Elbow Wrist 4.4 25.0 57 Elbow ? 8.5 2.3 Right Median Motor (Abd Poll Brev) Wrist ? 3.2 5.0 Elbow Wrist 5.0 26.0 52 Elbow ? 8.2 3.7 Left Ulnar Motor (Abd Dig Minimi) Wrist ? 2.3 6.8 A Elbow Wrist 5.0 29.0 58 A Elbow ? 7.3 5.5 Right Ulnar Motor (Abd Dig Minimi) Wrist ? 2.8 6.0 A Elbow Wrist 5.1 28.0 55 A Elbow ? 7.9 4.5 F Wave Studies ?NR F-Lat (ms) L-R F-Lat (ms) Left Median (Mrkrs) (Abd Poll Brev) ? 28.19 0.28 Right Median (Mrkrs) (Abd Poll Brev) ? 27.91 0.28 Left Ulnar (Mrkrs) (Abd Dig Min) ? 27.19 2.11 Right Ulnar (Mrkrs) (Abd Dig Min) ? 29.30 2.11 EMG ?Side Muscle Nerve Root Ins Act Fibs Amp Dur Recrt Comment Left 1stDorInt Ulnar C8-T1 Nml Nml Nml Nml Nml Left Ext Indicis Radial (Post Int) C7-8 Nml Nml Nml Nml Nml Left Ext Digitorum Radial (Post Int) C7-8 Nml Nml Nml Nml Nml Left BrachioRad Radial C5-6 Nml Nml Nml Nml Nml Left PronatorTeres Median C6-7 Nml Nml Nml Nml Nml Left Abd Poll Brev Median C8-T1 Nml Nml Nml Nml Nml Left ABD Dig Min Ulnar C8-T1 Nml Nml Nml Nml Nml Right 1stDorInt Ulnar C8-T1 Nml Nml Nml Nml Nml Right Ext Indicis Radial (Post Int) C7-8 Nml Nml Nml Nml Nml Right Ext Digitorum Radial (Post Int) C7-8 Nml Nml Nml Nml Nml Right BrachioRad Radial C5-6 Nml Nml Nml Nml Nml Right PronatorTeres Median C6-7 Nml Nml Nml Nml Nml Right Abd Poll Brev Median C8-T1 Nml Nml Nml Nml Nml Right ABD Dig Min Ulnar C8-T1 Nml Nml Nml Nml Nml ? MTDD
== END 2024-08-21 12:21 | disposition home or self-care (01) ==
LOC: ANHNEURO 12:20
PROVIDERS: PCP Nurse Practitioner Adult Health; Visit Provider Anesthesiology Pain Medicine
DX: G56.02 Carpal tunnel syndrome, left upper limb (principal)
CPT/HCPCS: 95886; 95911

== ENCOUNTER 2024-09-05 13:36 | Outpatient (CLI) | payer MEDICARE, MEDICAID, SELFPAY ==
--- OUTSIDE RECORDS SUMMARY | 2024-09-05 13:39 | XMS_ITS | Clinical Summary ---
Author Organization [facility] Address [address] [place] [address] Phone Care Team Providers Care Practice Clinician Name Role Phone Wiley Causey MD Primary Care Provider [phone] Allergies Active Allergy Reactions Criticality Noted Date [...] - continue medication and follow up with Ruling Machine Set Up Operator. Obstructive sleep apnea syndrome 03/20/2020 Type 2 [...] PM CDT Pulse - - Temperature 36.5 C (97.7 F) 02/24/2022 3:49 PM CDT Respiratory Rate 18 02/24/2022 3:49 PM CDT [...] 2017 Influenza Vaccine (#1) 2024 Care Teams Practice Clinician Relationship Specialty Start Date End Date Wiley Causey MD PCP - General Family Medicine 10/05/21
--- OUTSIDE RECORDS SUMMARY | 2024-09-05 13:39 | XMS_ITS | Referral Summary ---
Author Organization [facility] Address [address] [place] [address] Care Team Providers Care Carpenters Helper Name Role Phone Angel Cottrell DO Primary Care Provider [phone] Allergies Active Allergy Reactions Criticality Noted Date Comments Budesonide-Formotero l Muscle pain Medium 11/26/2020 Other Other (See comments),Rash Medium 09/15/2018 Muscle spasms 2 Cholesterol medications caused a rash. Patient [...] mouth daily Monthly infusion Active vit D3-vit L-axybnjswo-sfk s [phone] qnzb-mqj-cy-mg tablet Take by mouth Active ergocalciferol (VITAMIN [...] - continue medication and follow up with Melter Loader. MADDY (obstructive sleep apnea) 03/20/2020 Type 2 [...] on file Legal Sex Female 8:44 PM LIQUID SUGAR MELTER Gender Identity Not on file Sexual Orientation Not on file Last Filed Vital Signs Vital Sign Reading Time Taken Comments Blood Pressure 130/71 04/22/2021 4:15 PM CDT Pulse 80 04/22/2021 4:15 PM CDT Temperature 37.2 C (98.9 F) 04/24/2021 11:09 AM CDT Respiratory Rate 18 04/22/2021 4:15 PM CDT [...] HUMANA CHOICE MEDICARE PPO IDPA Care Teams Carpenters Helper Relationship Specialty Start Date End Date Angel Cottrell DO PCP - General Family Medicine 03/11/20
--- OUTSIDE RECORDS SUMMARY | 2024-09-05 13:39 | XMS_ITS | Clinical Summary ---
Author Organization [facility] Address [address] [place] [address] Care Team Providers Care 2Nd Grade Teacher Name Role Phone Unavailable Primary Care Provider [...] of 1 - PCV) 2017 COVID-19 Vaccine (2023-2 5 season) 2024 Influenza Adult (#1) 2024 [...]
--- OUTSIDE RECORDS SUMMARY | 2024-09-05 13:39 | XMS_ITS | Clinical Summary ---
Author Organization [facility] Address [address] [address] Phone Care Team Providers Care Youth Minister Name Role Phone Wiley Causey MD Primary Care Provider [phone] Allergies Active Allergy Reactions Criticality Noted Date [...] on file Legal Sex Female 2:49 PM DISTRIBUTION FIELD TECHNICIAN Gender Identity Not on file Sexual Orientation Not on file Last Filed Vital Signs Vital Sign Reading Time Taken Comments Blood Pressure 171/96 05/22/2019 12:50 AM DISTRIBUTION FIELD TECHNICIAN Pulse 93 05/22/2019 12:50 AM DISTRIBUTION FIELD TECHNICIAN Temperature 37.1 C (98.7 F) 05/21/2019 8:14 PM DISTRIBUTION FIELD TECHNICIAN Respiratory Rate 30 05/22/2019 12:50 AM DISTRIBUTION FIELD TECHNICIAN Oxygen Saturation 90% 05/22/2019 12:50 AM DISTRIBUTION FIELD TECHNICIAN Inhaled Oxygen Concentration - - Weight 104.3 kg (230 lb) 05/21/2019 8:14 PM DISTRIBUTION FIELD TECHNICIAN Height 157.5 cm (5' 2 ) 05/21/2019 8:14 PM DISTRIBUTION FIELD TECHNICIAN Body Mass Index 42.07 05/21/2019 8:14 PM DISTRIBUTION FIELD TECHNICIAN Plan of Treatment Health Maintenance Due Date [...] topic Insurance MEDICARE C [employer] Member Subscriber Plan / Payer (Ef fective 2018-Present) Name:Edith Mayo Relation to Subscriber:Self Name:Edith Mayo Payer ID:[id number] Group ID:[id number] Type:Not on file Address: [address] [address] [place] [address] Care Teams Youth Minister Relationship Specialty Start Date End Date Wiley Causey MD [address] [place] [address] PCP - General Family Medicine 06/28/22
--- OUTSIDE RECORDS SUMMARY | 2024-09-05 13:39 | XMS_ITS | Clinical Summary ---
Author Organization [facility] Address [address] [place] [address] Care Team Providers Care Candy Counter Clerk Name Role Phone Angel Cottrell DO Primary Care Provider [phone] Allergies Active Allergy Reactions Criticality Noted Date [...] mouth daily Monthly infusion Active vit D3-vit M-scztiafpb-tpr s [phone] tkhj-bql-wa-mg tablet Take by mouth Active ergocalciferol (VITAMIN [...] - continue medication and follow up with Network Contract Manager. MADDY (obstructive sleep apnea) 03/20/2020 Type 2 [...] on file Legal Sex Female 8:44 PM FOOD AND BEVERAGE LEAD Gender Identity Not on file Sexual Orientation [...] HUMANA CHOICE MEDICARE PPO IDPA Care Teams Candy Counter Clerk Relationship Specialty Start Date End Date Angel Cottrell DO PCP - General Family Medicine 03/11/20
--- OUTSIDE RECORDS SUMMARY | 2024-09-05 13:39 | XMS_ITS | Clinical Summary ---
Author Organization [facility] Jeffery payan [facility] Address [address] [place] [address] Care Team Providers Care Oracle Pl Sql Developer Name Role Phone Wiley Causey MD Primary Care Provider [phone] Allergies Active Allergy Reactions Criticality Noted Date Comments Atorvastatin Hives High 12/03/2020 Budesonide-Formoterol Muscle Pain Medium 11/26/2020 Ocobfea-Nrd-Dzb Reductase Inhibitors Other (See Comments) 04/28/2021 Tramadol Hives High 09/15/2018 Medications amLODIPine (NORVASC) 5 mg tablet Take 5 mg by mouth. 9 Active betamethasone valerate (VALISONE) 0.1 % Cream Apply to affected area. Active blood sugar diagnostic Strip TEST BS ONCE D 0 Active dulaglutide (Trulicity) 1.5 mg/0.5 mL injection .075 per pcp 1 Active glimepiride (AMARYL) 1 mg tablet 1 mg. 9 Active lancets USE TO TEST ONCE DAILY 0 Active lisinopriL (PRINIVIL) 20 mg tablet Take 20 mg by mouth. Active Vit D3 & J-Liophsrrb-Dm ps [phone] zflw-afe-jp-mg Tablet Take by mouth. Activ e omeprazole (PriLOSEC) 40 mg Capsule, Delayed Release(E.C.) Take 40 mg by mouth daily. Active topiramate (TOPAMAX) 25 mg tablet Take 25 mg by mouth daily. 2 Active Ozempic 1 mg/dose (4 mg/3 mL) Pen Injector 2 Active predniSONE (DELTASONE) 1 mg tablet TAKE 4 TABLETS BY MOUTH DAILY 2 Active allopurinoL (ZYLOPRIM) 300 mg tablet Take 300 mg by mouth daily. 2 Active Syringe with Needle, Disp, 1 mL 27 x 1/2 SyringeIndicat ions:Other dietary vitamin B12 deficiency anemia Use 1 syringe to inject 1000 mcg vitamin B12 (1 mL) every 4 weeks. 1 Each 4 Active HYDROcodone-ac etaminophen (NORCO) 5-325 mg tablet Take 1 Tablet by mouth every 8 hours as needed. 4 Active cyanocobalamin (VITAMIN B-12) 1,000 mcg/mL SolutionIndica tions:Other dietary vitamin B12 deficiency anemia ADMINISTER 1 ML(1000 MCG) IN THE MUSCLE EVERY 30 DAYS 1 mL 5 Active cyanocobalamin (VITAMIN B-12) 1,000 mcg/mL SolutionIndica tions:Other dietary vitamin B12 deficiency anemia Inject 1 mL (1,000 mcg) by intramuscular injection every 30 days. 1 mL 5 Active Active Problems Problem Noted Date Diagnosed Date Stage 3b chronic kidney disease 12/03/2020 Chronic anemia 12/03/2020 Other dietary vitamin B12 deficiency anemia 11/15 Encounters Date Type Department Care Team Description 09/05/2024 External Device Data STL ABSTRACTION Provider, Abstract 09/04/2024 External Device Data STL ABSTRACTION Provider, Abstract 08/28/2024 External Device Data STL ABSTRACTION Provider, Abstract 08/09/2024 External Device Data STL ABSTRACTION Provider, Abstract 07/30/2024 Refill [facility] Oncology and Hematology - [place] [address] [place] [address] Gabo Jiang MD Other dietary vitamin B12 deficiency anemia 07/29/2024 Refill [facility] Oncology and Hematology [place] [address] [place] [address] Gabo Jiang MD Other dietary vitamin B12 deficiency anemia 06/27/2024 10:15 AM COMMONWEALTH ATTORNEY Office Visit [facility] Oncology and Hematology [facility] [address] [place] [address] Gabo Jiang MD Chronic anemia (Primary Dx) 06/19/2024 Orders Only [facility] Oncology and Hematology - [place] [address] [place] [address] Gabo Jiang MD 06/13/2024 Refill [facility] Oncology and Hematology - [place] [address] [place] [address] Gabo Jiang MD Other dietary [...] 2 25 - 2006 Smokeless Tobacco: Never Tobacco Cessation:Counseling [...] Comments Blood Pressure 178/92 06/27/2024 10:20 AM COMMONWEALTH ATTORNEY Pulse 94 06/27/2024 10:17 AM COMMONWEALTH ATTORNEY Temperature 36.7 C (98 F) 06/27/2024 10:17 AM COMMONWEALTH ATTORNEY Respiratory Rate 17 06/27/2024 10:17 AM COMMONWEALTH ATTORNEY Oxygen Saturation 97% 06/27/2024 10:17 AM COMMONWEALTH ATTORNEY Inhaled Oxygen Concentration - - Weight 93.3 kg (205 lb 9.6 oz) 06/27/2024 10:17 AM COMMONWEALTH ATTORNEY Height 157.5 cm (5' 2 ) 04/20/2022 2:54 PM CDT Body Mass Index 37.6 04/20/2022 2:54 PM CDT Plan of Treatment Upcoming Encounters Date Type Department Care Team (Late st Contact Info) Description 12/26/2024 1:00 PM CDT Office Visit [facility] Oncology and Hematology - [place] [address] [place] [address] Gabo Jiang MD [address] [facility] [address] [place] [address] Health Maintenance Due Date Last [...] BASIC METABOLIC PANEL Routine 06/18/2024 12:48 PM COMMONWEALTH ATTORNEY CBC WITH DIFFERENTIAL Routine 06/18/2024 10:45 AM COMMONWEALTH ATTORNEY from Last 3 Months Results * BASIC METABOLIC PANEL (06/18/2024 12:48 PM COMMONWEALTH ATTORNEY) Blood Gabo Jiang MD CHEMISTRY ORDERABLES Final Resu lt * CBC WITH DIFFERENTIAL (06/18/2024 10:45 AM COMMONWEALTH ATTORNEY) Blood Gabo Jiang MD HEMATOLOGY ORDERABLES Final Res ult from Last 3 Months Insurance HUMANA GOLD PLUS HMO [employer] MED[place]ID [place] Care Teams Oracle Pl Sql Developer Relationship Specialty Start Date End Date Wiley Causey MD PCP - General Family Practice 08/04/21
--- OUTSIDE RECORDS SUMMARY | 2024-09-05 13:39 | XMS_ITS | Clinical Summary ---
Author Organization [facility] Address [address] [address] Care Team Providers Care Aerobics Teacher Name Role Phone Wiley Causey MD Primary Care Provider [phone] Allergies Active Allergy Reactions Criticality Noted Date [...] Comments Blood Pressure 132/62 09/15/2021 2:23 PM ORAL SURGEON Pulse 93 06/16/2021 1:49 PM ORAL SURGEON Temperature 36.4 C (97.6 F) 09/15/2021 2:23 PM ORAL SURGEON Respiratory Rate 18 09/15/2021 2:23 PM ORAL SURGEON Oxygen Saturation 98% 09/15/2021 2:23 PM ORAL SURGEON Inhaled Oxygen Concentration - - Weight 101 kg (223 lb) 09/15/2021 2:23 PM ORAL SURGEON Height 157.5 cm (5' 2 ) 09/15/2021 2:23 PM ORAL SURGEON Body Mass Index 40.79 09/15/2021 2:23 PM ORAL SURGEON Plan of Treatment Health Maintenance Due Date [...] Comments HEMOGLOBIN A1C Routine 07/01/2020 11:00 AM ORAL SURGEON from Last 3 Months or Most Recently Relevant to Health Maintenance Results * (ABNORMAL) Hemoglobin A1c (07/01/2020 11:00 AM ORAL SURGEON) Hemoglobin A1C 6.3(H) <5.7 % of total [...] diabetes for children. 07/01/2020 11:0 0 AM ORAL SURGEON us Hay Jerez DO LAB BLOOD ORDERABLES Final R esult [facility] from Last 3 Months or Most Recently Relevant to Health Maintenance Insurance [employer]NA MEDICARE [place] Care Teams Aerobics Teacher Relationship Specialty Start Date End Date Wiley Causey MD [address] [place] [address] PCP - General Family Medicine 06/17/21
--- OUTSIDE RECORDS SUMMARY | 2024-09-05 13:40 | XMS_ITS | Encounter Summary ---
Author Organization [facility] Address [address] [place] [address] Care Team Providers Care Director Of Advertising Sales Name Role Phone Wiley Causey MD Primary Care Provider [phone] Encounter Details Date Type Department Care Team (Late st Contact Info) Description 09/04/2024 External Device Data STL ABSTRACTION Provider, [...] Description 12/26/2024 1:00 PM CDT Office Visit [facility] Oncology and Hematology - [place] [address] [place] [address] [address] Gabo Jiang MD [address] [facility] [address] [place] [address] documented as of this encounter Visit Diagnoses Not on filedocumented in this encounter Care Teams Director Of Advertising Sales Relationship Specialty Start Date End Date Wiley Causey MD PCP - General Family Practice 08/04/21 documented as of this encounter
--- OUTSIDE RECORDS SUMMARY | 2024-09-05 13:40 | XMS_ITS | Encounter Summary ---
Author Organization [facility] Address [address] [place] [address] Care Team Providers Care Rough Rounder Name Role Phone Wiley Causey MD Primary Care Provider [phone] Encounter Details Date Type Department Care Team (Late st Contact Info) Description 09/05/2024 External Device Data STL ABSTRACTION [...] Description 12/26/2024 1:00 PM CDT Office Visit [facility] Oncology and Hematology - [place] [address] [place] [address] [address] Gabo Jiang MD [address] [facility] [address] [place] [address] documented as of this encounter Visit Diagnoses Not on filedocumented in this encounter Care Teams Rough Rounder Relationship Specialty Start Date End Date Wliey Causey MD PCP - General Family Practice 08/04/21 documented as of this encounter
--- NOTE | 2024-09-05 13:43 | ECHO_ITS ---
Patient Info Name: Edith Mayo Age: 74 years : 1950 Gender: Female Ht: 62 in Wt: 210 lbs BSA: 2.09 m2 HR: 99 bpm BP: 171 / 87 mmHg Technical Quality: Poor Exam Date: 09/05/2024 1:56 PM Exam Location: Echo Lab Patient Status: Outpatient Admit Date: 09/05/2024 Staff Ordering Physician: Bronson Up DO Scrub Wheel Operator: Nerissa Mills RDCS Attending Provider: Bronson Up DO Referring Physician: Jeovanny BETHEA; Exam Type: CA echo dop color flow w con Study Info Indications - OTHER FORMS OF DYSPNEA Complete two-dimensional, color flow and Doppler transthoracic echocardiogram is performed with contrast to opacify the left ventricle and to improve the deliniation of the left ventricle endocardial borders. Contrast/Agitated Saline Contrast/Ag. Saline: Definity Amount: 2.00 ml Existing IV Access: Yes Reason for Poor Study: poor echocardiographic windows Summary 1. Definity contrast administered improved wall motion interpretation. 2. Left ventricular chamber dimension is normal. 3. Left ventricular systolic function is hyperdynamic, estimated at >70%. 4. There is moderate concentric increased left ventricular wall thickness. 5. The left ventricular diastolic function is grade I diastolic dysfunction. 6. E/e' 9 is minimally elevated. 7. The mitral valve has moderately calcified annulus. 8. There is small to moderate circumferential pericardial effusion. Left Ventricle Definity contrast administered improved wall motion interpretation. E/e' 9 is minimally elevated. Left ventricular chamber dimension is normal. Left ventricular systolic function is hyperdynamic, estimated at >70%. There is moderate concentric increased left ventricular wall thickness. The left ventricular diastolic function is grade I diastolic dysfunction. Right Ventricle Right ventricular systolic function is normal and with normal TAPSE 2.4 cm. Right ventricular chamber dimension is normal. Left Atria Left atrial chamber dimension is normal. Right Atria Right atrial chamber dimension is normal. Aortic Valve The aortic valve is not well visualized. Cannot determine number of aortic valve leaflets. There is no aortic valve stenosis. There is no aortic valve regurgitation. Pulmonic Valve There is no pulmonic regurgitation. Mitral Valve The mitral valve has moderately calcified annulus. There is no mitral valve stenosis. There is no mitral valve regurgitation. Tricuspid Valve There is no tricuspid valve regurgitation. Pericardium/Pleural There is small to moderate circumferential pericardial effusion. No cardiac tamponade. Inferior Vena Cava Normal inferior vena cava with >50% collapse upon inspiration consistent with normal right atrial pressure, 5 mmHg. Aorta The aortic root size at the sinus of Valsalva is normal. Left Ventricular Outflow Tract Name Value Normal LVOT 2D LVOT Diameter 2.09 cm LVOT Doppler LVOT Peak Velocity 111.79 cm/s LVOT Peak Gradient 5 mmHg LVOT Mean Gradient 3 mmHg LVOT VTI 27.86 cm LVOT VTI/AV VTI Ratio 0.96 LVOT Stroke Volume 95.20 ml LVOT CO 6.83 l/min LVOT CI 3.27 L/min/m2 Pulmonic Valve Name Value Normal RVOT Doppler RVOT Peak Gradient 4 mmHg PV Doppler PV Peak Velocity 103.86 cm/s PV Peak Gradient 4 mmHg Mitral Valve Name Value Normal MV Doppler MV Decel [place] 660.32 cm/s2 MV PHT 0 s MV Area (PHT) 9.66 cm2 4.00-5.00 MV Diastolic Function MV E Peak Velocity 51.87 cm/s MV A Peak Velocity 103.15 cm/s MV E/A 0.50 MV Decel Time 0 s MV Annular TDI MV Septal e' Velocity 5.04 cm/s >=8.00 MV E/e' (Septal) 10.28 <=8.00 MV Lateral e' Velocity 5.65 cm/s >=10.00 MV E/e' (Lateral) 9.18 <=8.00 MV e' Average 5.35 MV E/e' (Average) 9.73 Tricuspid Valve Name Value Normal Estimated PAP/RSVP RA Pressure 5 mmHg <=5 TV Annular TDI TV Lateral Ernestina s' Velocity 12.90 cm/s 9.50-18.70 Aorta Name Value Normal Ascending Aorta Ao Root Diameter (MM) 3.47 cm Ao Root Diam Index (MM) 1.66 cm/m2 Ao [place] Diameter 2.81 cm 2.30-2.90 Aortic Valve Name Value Normal AV Doppler AV Peak Velocity 143.29 cm/s AV Peak Gradient 8 mmHg AV Mean Gradient 5 mmHg AV VTI 29.06 cm AV Area (Cont Eq VTI) 3.28 cm2 >=3.00 AV Area (Cont Eq Quang) 2.67 cm2 AV V1/V2 Ratio 0.78 AV Regurgitation 2D LVOT Area 3.42 cm2 Ventricles Name Value Normal LV Dimensions 2D/MM IVS Diastolic Thickness (2D) 1.06 cm 0.60-1.00 LVID Diastole (2D) 4.66 cm 3.80-5.20 LVIW Diastolic Thickness (2D) 1.93 cm 0.60-0.90 LVID Systole (2D) 2.33 cm 2.20-3.50 LVOT Diameter 2.09 cm LV Mass (2D Cubed) 289.27 g 67.00-162.00 LV Mass Index (2D Cubed) 0.01 g/cm2 0.00-0.01 Relative Wall Thickness (2D) 0.83 LV Fractional Shortening/Ejection Fraction 2D/MM LV Fractional Shortening (2D) 41 % 27-45 LV EF (2D Teicholz) 71 % 54-74 LV Diastolic Volume (4C MOD) 64.84 ml LV EF (4C MOD) 80 % LV Diastolic Volume (2C MOD) 70.53 ml LV EF (2C MOD) 83 % LV Diastolic Volume (BP MOD) 69.92 ml 46.00-106.00 LV Diastolic Volume Index (BP MOD) 0.03 l/m2 0.03-0.06 LV Systolic Volume (BP MOD) 12.42 ml 14.00-42.00 LV Systolic Volume Index (BP MOD) 0.01 l/m2 0.01-0.02 LV EF (BP MOD) 82 % 54-74 LV Diastolic Length (4C) 7.10 cm LV Systolic Length (4C) 5.28 cm LV Stroke Volume (4C MOD) 51.74 ml Atria Name Value Normal LA Dimensions LA Dimension (MM) 3.47 cm 2.70-3.80 LA Volume (4C A-L) 42.89 ml LA Volume (BP A-L) 45.32 ml Report Signatures
[2024-09-05] MEDS: PERFLUTREN LIPID MICROSPHERES 1.5 ML VIAL DILUTED TO 10 ML TOTAL VOLUME IV PUSH (14:55)
--- NOTE | 2024-09-05 15:28 | IVDEFINITY ---
Prior to administration of IV Definity the patient was educated on the risks and benefits of the imaging enhancing agent including potential adverse side effects. The patient verbalized understanding. Allergies were verified. No exclusion criteria were identified and at least one of the following inclusion criteria were met: 1) physician request, 2) patient technically difficult to image (per the [place] [employer]chocardi[employer] guidelines of two or more segments not discernable within the apical view), or 3) questionable left ventricular function. ?
== END 2024-09-05 13:37 | disposition home or self-care (01) ==
LOC: ANHCARD 13:37
PROVIDERS: PCP Nurse Practitioner Adult Health; Visit Provider Internal Medicine Cardiovascular Disease
DX: I50.20 Unspecified systolic (congestive) heart failure (principal); I42.2 Other hypertrophic cardiomyopathy; I51.89 Other ill-defined heart diseases; I34.81 Nonrheumatic mitral (valve) annulus calcification; I31.39 Other pericardial effusion (noninflammatory)
CPT/HCPCS: C8929; Q9957

== ENCOUNTER 2024-09-17 00:14 | Day surgery (SDC) | payer MEDICARE, MEDICAID, SELFPAY ==
[2024-09-12 10:14] VITALS: BMI 38.2
--- NOTE | 2024-09-12 10:21 | PC.NURSE ---
Addendum entered by Antoinette Esteves RN 09/13/24 11:16: Pt was notified to report to waiting room at 1100 on 09/17 for surgery at 1200. Original Note: Report to the Outpatient Waiting Room, entrance under the green pavilion located off [facility], at time __1000am on date _09/17/24 . Planned Procedure Time: .? Time changes happen often and if your time is changed the preop area will call you the afternoon before. - You and your visitor will be asked to self-screen and do not enter if you have any COVID symptoms. Please call surgeon if you need to reschedule. - A mask is optional within the hospital at this time. Patients may have food & Drink until time 1000am date of Surgery. After 1000am no smoking, or chewing tobacco (or any form of nicotine). No chewing gum, candy or mints. Take only the following medications with a SIP of water on the morning of surgery: ____All regular meds ok DO NOT STOP ANY OF YOUR OTHER PRESCRIPTION MEDICATIONS PRIOR TO SURGERY EXCEPT THE FOLLOWING Medications to discontinue per physician None Date to take last dose None Please no make-up, nail kuwaiti, hairspray, perfume, deodorant, or body powder the day of surgery.? No jewelry (including any body piercings) or valuables the day of surgery, leave them at home.? Please take a shower or bath the night before, or the morning of, surgery with an antibacterial soap.? Wear comfortable, loose fitting clothing.? - Jewelry must be removed prior to entering the operating room.? Rings and piercings that are not removed may be cut off. - The hospital will not accept responsibility for valuables.? - Please leave all valuables, including medications, at home the day of surgery. If you are going home after surgery, a licensed dump truck driver off highway must drive you home.? - NO public transportation without another adult if you receive anesthesia. - We recommend that an adult stay with you for 24 hours following discharge. - We also recommend that you do not drive, make important decision, drink alcoholic beverages, or take any drugs that were not prescribed by your health care provider for at least 24 hours after your discharge time. Follow any additional instructions given to you from your surgeon. Telephone instructions given to __Patient and asked if any additional questions and then verbalized understanding. Patient advised to call surgeon office or pre surgery nurse liaison [phone] if any additional questions.
--- NOTE | 2024-09-17 08:27 | WPDHPUPDATE1 ---
History and Physical Update Update Date/Time: 09/17/24 08:27 History and Physical has been reviewed, including an updated exam of the patient. There are NO changes in the patient's condition. Risks, benefits, and alternatives have been discussed and questions answered. Patient agrees to proceed with procedure.
--- NOTE | 2024-09-17 08:28 | W.PM.PROC2 ---
Procedure Note - Detailed Date of Procedure 09/17/24 Pre-op Diagnosis Lumbar radiculopathy, chronic pain Post-op Diagnosis Same Procedure Performed bilateral Lumbar Transforaminal Epidural Steroid Injection under Fluoroscopic Guidance and with Contrast Control at L4-5. Surgeon Darrell Aquino MD Anesthesia Local Description of Procedure INFORMED CONSENT: Risks, benefits and alternatives to the procedure were discussed in detail with the patient who expressed explicit understanding and consent to proceed. Patient was informed verbally and in written form regarding the risks associated with the procedure including the low risk of serious infection, bleeding/bruising, allergic reaction, nerve or organ injury, paralysis, procedural site pain or discomfort, worsening pain and/or mobility, failure to treat and/or disfigurement. The patient expressed explicit understanding and consent to proceed. All materials required for the procedure were available prior to procedure start. Site and side was marked prior to procedure and confirmed in the presence of the patient. PROCEDURE IN DETAIL: The patient was brought to the procedural suite and placed in the prone position. Patient was made comfortable with use of pillows under the head/chest, hips and ankles. Skin overlying the injection site was prepared broadly with ChloraPrep applicator and draped in a sterile manner. Aseptic technique was employed throughout. The endplates of the vertebral body at the site of interest were aligned in the AP view. Ipsilateral oblique angulation was utilized to better visualize the neuroforamen of interest. Local anesthesia was established by infiltration with approximately 5 mL of 0.5% PF lidocaine via a 1-1/2 inch 27-gauge needle. A 22-gauge 5.0 inch Torito (pencil point) spinal needle was advanced until the needle approached the 6 o'clock position on the pedicle just superior to the exiting nerve root. on the right at L4-5. Lateral view was utilized to confirm appropriate position of the needle tip within the superior and posterior portion of the respective foramen. In an AP view, 1 mL of Omnipaque 300 contrast medium was injected after negative aspiration for CSF, blood or other bodily fluid, showing appropriate neurogram without evidence of intravascular or intrathecal spread of contrast. Digital subtraction imaging was used with an additional 1ml of the same contrast medium to confirm absence of intravascular contrast spread. A 1mL solution containing 3 mg of betamethasone was injected after negative repeat aspiration. Appropriate spread of the injectate was confirmed with washout of previously injected contrast. No parasthesias were elicited. Needle was removed completely intact without difficulty. The same exact procedure was repeated for all remaining levels on the contralateral side, left L4-5 neuroforamen, modified as necessary to accommodate for the new target location with identical findings and results and no evidence of complication. Images were saved and documented in the patient chart. Patient's skin was cleaned and sterile bandage applied. The patient tolerated the procedure well. The patient was transported to the recovery area in stable condition where they were observed for an appropriate amount of time prior to discharge, without evidence of complication. The patient was instructed to avoid excessive activity for the next 48 hours, including climbing and frequent use of stairs. Showers only for 48 hours. They were instructed not to drive or operate heavy machinery for 24 hours. They are to monitor for severe headaches, fevers, chills, night sweats, erythema/swelling at the site or any other signs of infection, bleeding/bruising, bowel or bladder changes as well as new pain, weakness or numbness in the upper or lower extremity. Should they notice these changes, they are instructed to call our office immediately or report directly to the nearest Emergency Department if no answer or if after posted office hours. COMPLICATIONS: None COMMENTS: None CONTRAST WASTED: 26 mL Omnipaque 300. STEROID WASTED: 0 mg of betamethasone. Complications No immediate complications Condition Stable Disposition Same day [facility] Billing Surgery - Charge Forward: Surgery Billing
[2024-09-17 11:05] VITALS: BP 153/63; PULSE 86; RESP 18; TEMP 37.2; O2SAT 99
[2024-09-17 12:20] VITALS: BP 173/92; PULSE 100; RESP 18; O2SAT 96
[2024-09-17] MEDS: BETAMETHASONE SODIUM PHOSPHATE PF INJ 6 MG/ML VIAL INFILTRATE (12:25)
[2024-09-17] MEDS: BUPivacaine HCL 0.5% 10 ML AMP 2 ML INFILTRATE (12:25)
[2024-09-17] MEDS: LIDOCAINE 1% LOCAL INJ 10 ML VIAL 2 ML INFILTRATE (12:27)
[2024-09-17 12:30] VITALS: BP 174/92; PULSE 97; RESP 16; O2SAT 97
[2024-09-17 12:37] VITALS: BP 142/60; PULSE 83; O2SAT 100
== END 2024-09-17 13:02 | disposition home or self-care (01) ==
PROVIDERS: PCP Nurse Practitioner Adult Health; Visit Provider Anesthesiology Pain Medicine
PROC: (CPT 64483; principal; 2024-09-17 12:00)
DX: M47.27 Other spondylosis with radiculopathy, lumbosacral region (principal); M48.07 Spinal stenosis, lumbosacral region; M48.062 Spinal stenosis, lumbar region with neurogenic claudication; G89.29 Other chronic pain
CPT/HCPCS: 64483; 99199; J2003; Q9965

== ENCOUNTER 2024-10-16 09:45 | Outpatient (RCR) | payer MEDICARE, MEDICAID, SELFPAY ==
--- NOTE | 2024-10-16 10:49 | OPREHPOC ---
Outpatient Therapy Plan of Care This is a Multidisciplinary Plan of Care that may contain components documented by all disciplines (PT, OT, and ST.) PT Problem 1 PT Problem #1 Knowledge Deficit PT Goal 1 Goal / Goal Update *independent with HEP Target Visit 10 PT Goal 2 Goal / Goal Update * correct body mechanics with lifting from the floor Target Visit 10 PT Problem 2 PT Problem #2 Pain PT Goal 1 Goal / Goal Update * pt report pain at worst of 5/10 Target Visit 10 PT Goal 2 Goal / Goal Update * radicular pain to bilateral buttocks at worst Target Visit 10 PT Problem 3 PT Problem #3 Impaired Flexibility PT Goal 1 Goal / Goal Update * supine R and L hip motions without an increase in pain reported Target Visit 10 PT Problem 4 PT Problem #4 Impaired Strength PT Goal 1 Goal / Goal Update increase strength of trunk and hips to improve stability to spine and mobility: * pt perform 20 reps of mat strengthening exercises Target Visit 10 PT Problem 5 PT Problem #5 Impaired Functional Mobility PT Goal 1 Goal / Goal Update *2 minute walking test distance of 300' with rollator Target Visit 10
--- NOTE | 2024-10-16 10:49 | PTOPEVAL1 ---
Assessment and note entered by Jaz Marin PT Evaluation Information Assessment Status Evaluation ICD-10 Condition Codes (PT) Pain in low back M54.50 Onset August 2024 Subjective Information chronic back pain, getting worse- hydrocodone not helping also have L knee pain, receive injections and neck pain- injections helped; going to have MILD next week, 10-23-24; activity: cane or no device in the house and wheeled walker when out in community; independent with self care; daughter does grocery shopping and cleans home; Reported Pain Level Pain Score Self Report Additional Pain Score Comments pain range in the past week: 5- 10/10; radicular pain, intermittent into both LE to posterior knees increase pain: activity- standing to do dishes decrease pain: change positions, hydrocodone- helps little; stretching back and legs when lying down with sleeping, awaken 2-3 x/night due to pain is not using heat or ice- instruct on PRN use 10- 15 minutes; after surgery-- ice to back Assessment PT Clinical Summary Edith has the diagnosis of back pain. She is scheduled for MILD on 10-23-24 and is here today for pre op visit. Her activity is limited due to pain, using a rollator or cane with walker and daughter is assisting her with grocery shopping and cleaning her home. With the evaluation: Oswestry self assessment rating of 68%; 2 minute walking test distance of 160'; pain rating of 5-10/10, with radicular pain into posterior LE to knees; supine R and L hip flexion, SLR, IR and ER motions increase her pain, L more pain than R. Education to pt on post op protocol and she is scheduled to return for PT treatment at 2 weeks post op. Skilled PT post op: modalities to decrease pain; therapeutic exercises to increase flexibility and strength of trunk and hips with education for HEP. Plan of Care Interventions Electrical Stimulation,Gait Training,Hot Pack/Cold Pack,Manual Therapy,Neuro Re-education,Patient/ Caregiver Education,Therapeutic Activities, Therapeutic Exercise,Ultrasound,Other Other Interventions taping PT Services Indicated Yes Treatment Frequency and begin treatment post op: 1-2x/wk for 10 visits Duration These treatments will address the objective and functional deficits as defined above. The patient will be advanced safely and appropriately in order for the patient to progress towards his/her prior level of function. Additional exercises will be introduced and as well as a comprehensive home exercise program upon discharge, if needed, to ensure carryover of functional gains achieved in the clinic. This treatment plan has been reviewed and agreement upon by the patient.
--- NOTE | 2024-10-25 13:41 | PCPTNOTE ---
pt called to cancel her reeval appt on 11-07-24; her surgery has been rescheduled. She will call to reschedule it.
--- NOTE | 2024-12-07 14:19 | OPREHPOC ---
Outpatient Therapy Plan of Care This is a Multidisciplinary Plan of Care that may contain components documented by all disciplines (PT, OT, and ST.) PT Problem 1 PT Problem #1 Knowledge Deficit PT Goal 1 Goal / Goal Update *independent with HEP 12-07-24 d/c pt stopped attending therapy the goals were not addressed Target Visit 10 PT Goal 2 Goal / Goal Update * correct body mechanics with lifting from the floor 12-07-24 d/c pt stopped attending therapy the goals were not addressed Target Visit 10 PT Problem 2 PT Problem #2 Pain PT Goal 1 Goal / Goal Update * pt report pain at worst of 11/24 12-07-24 d/c pt stopped attending therapy the goals were not addressed Target Visit 10 PT Goal 2 Goal / Goal Update * radicular pain to bilateral buttocks at worst 12-07-24 d/c pt stopped attending therapy the goals were not addressed Target Visit 10 PT Problem 3 PT Problem #3 Impaired Flexibility PT Goal 1 Goal / Goal Update * supine R and L hip motions without an increase in pain reported 12-07-24 d/c pt stopped attending therapy the goals were not addressed Target Visit 10 PT Problem 4 PT Problem #4 Impaired Strength PT Goal 1 Goal / Goal Update increase strength of trunk and hips to improve stability to spine and mobility: * pt perform 20 reps of mat strengthening exercises 12-07-24 d/c pt stopped attending therapy the goals were not addressed Target Visit 10 PT Problem 5 PT Problem #5 Impaired Functional Mobility PT Goal 1 Goal / Goal Update *2 minute walking test distance of 300' with rollator 12-07-24 d/c pt stopped attending therapy the goals were not addressed Target Visit 10
--- NOTE | 2024-12-07 14:19 | PTOPDC ---
Assessment and note entered by Jaz Marin, PT Assessment Status Discharge - Pt Not Present ICD-10 Condition Codes (PT) Pain in low back M54.50 Onset August 2024 Subjective Information pt was not seen this date; Assessment PT Clinical Summary Edith received the PT evaluation on October 16 and did not return for any further treatment. Discharge PT. The goals were not addressed. Plan of Care PT Services Indicated No
== END 2024-12-07 14:43 | disposition home or self-care (01) ==
LOC: ANHPT 09:45
PROVIDERS: PCP Anesthesiology Pain Medicine; Visit Provider Anesthesiology Pain Medicine
DX: M48.062 Spinal stenosis, lumbar region with neurogenic claudication (principal); M54.9 Dorsalgia, unspecified
CPT/HCPCS: 97161; 97530

== ENCOUNTER 2024-10-16 11:04 | Outpatient (CLI) | payer MEDICARE, SELFPAY ==
--- OUTSIDE RECORDS SUMMARY | 2024-10-16 12:22 | XMS_ITS | Clinical Summary ---
Author Organization [facility] Address [address] [place] [address] Care Team Providers Care Natural Science Curator Name Role Phone Angel Cottrell DO Primary Care Provider [phone] Allergies Active Allergy Reactions Criticality Noted Date [...] mouth daily Monthly infusion Active vit D3-vit Y-nmvvmjczt-xev s [phone] wkll-gyc-ke-mg tablet Take by mouth Active ergocalciferol (VITAMIN [...] - continue medication and follow up with Catering Barista. MADDY (obstructive sleep apnea) 03/20/2020 Type 2 [...] on file Legal Sex Female 8:44 PM [employer] Gender Identity Not on file Sexual Orientation [...] [employer] CHOICE MEDICARE PPO IDPA Care Teams Natural Science Curator Relationship Specialty Start Date End Date Angel Cottrell DO PCP - General Family Medicine 03/11/20
--- OUTSIDE RECORDS SUMMARY | 2024-10-16 12:22 | XMS_ITS | Clinical Summary ---
Author Organization [facility] Jeffery payan [facility] Address [address] [place] [address] Care Team Providers Care Transmission Engineer Name Role Phone Wiley Causey MD Primary Care Provider [phone] Allergies Active Allergy Reactions Criticality Noted Date Comments Atorvastatin Hives High 12/03/2020 Budesonide-Formoterol Muscle Pain Medium 11/26/2020 Heusqty-Tww-Tye Reductase Inhibitors Other (See Comments) 04/28/2021 Tramadol [...] mg by mouth. Active Vit D3 & J-Ysghjopbo-Tn ps [phone] dzvq-guo-fx-mg Tablet Take by mouth. Activ e omeprazole [...] Data STL ABSTRACTION Provider, Abstract 07/30/2024 Refill [facility] - [place] [address] [place] [id number] Gabo Jiang MD Other dietary vitamin B12 deficiency anemia 07/29/2024 Refill [facility] - [place] [address] [place] [id number] Gabo Jiang MD Other dietary vitamin B12 [...] Comments Blood Pressure 178/92 06/27/2024 10:20 AM BIOLOGICAL SCIENCES PROFESSOR Pulse 94 06/27/2024 10:17 AM BIOLOGICAL SCIENCES PROFESSOR Temperature 36.7 C (98 F) 06/27/2024 10:17 AM BIOLOGICAL SCIENCES PROFESSOR Respiratory Rate 17 06/27/2024 10:17 AM BIOLOGICAL SCIENCES PROFESSOR Oxygen Saturation 97% 06/27/2024 10:17 AM BIOLOGICAL SCIENCES PROFESSOR Inhaled Oxygen Concentration - - Weight 93.3 kg (205 lb 9.6 oz) 06/27/2024 10:17 AM BIOLOGICAL SCIENCES PROFESSOR Height 157.5 cm (5' 2 ) 04/20/2022 2:54 PM CDT Body Mass Index 37.6 04/20/2022 2:54 PM CDT Plan of Treatment Upcoming Encounters Date Type Department Care Team (Late st Contact Info) Description 12/26/2024 1:00 PM CDT Office Visit [facility] H[facility] [address] [place] [address] [facility] [address] [place] [address] Gabo Jiang MD [address] [place] [address] Health Maintenance Due Date Last Done Comments DIABETES ANNUAL FOOT EXAM 1970 DIABETES ANNUAL RETINAL EXAM 1970 DIABETES MICROALBUMIN ANNUAL SCREEN 1970 LDL CHOLESTEROL ANNUAL 1970 DTAP/TDAP/TD VACCINES (1 - Tdap) 1971 PNEUMOCOCCAL VACCINE 50+ YEA RS (1 of 2 - PCV) [...] 12/30/2020 07/01/2020, 08/2019 INFLUENZA VACCINE (#1) 2024 Insurance [employer] [facility] MEDICAID [place] Care Teams Transmission Engineer Relationship Specialty Start Date End Date Wiley Causey MD PCP - General Family Practice 08/04/21
--- OUTSIDE RECORDS SUMMARY | 2024-10-16 12:22 | XMS_ITS | Clinical Summary ---
Author Organization [facility] Address [address] [address] Phone Care Team Providers Care Component Lab Tech Name Role Phone Wiley Causey MD Primary Care Provider [phone] Allergies Active Allergy Reactions Criticality Noted Date [...] on file Legal Sex Female 2:49 PM TALENT BUYER Gender Identity Not on file Sexual Orientation Not on file Last Filed Vital Signs Vital Sign Reading Time Taken Comments Blood Pressure 171/96 05/22/2019 12:50 AM TALENT BUYER Pulse 93 05/22/2019 12:50 AM TALENT BUYER Temperature 37.1 C (98.7 F) 05/21/2019 8:14 PM TALENT BUYER Respiratory Rate 30 05/22/2019 12:50 AM TALENT BUYER Oxygen Saturation 90% 05/22/2019 12:50 AM TALENT BUYER Inhaled Oxygen Concentration - - Weight 104.3 kg (230 lb) 05/21/2019 8:14 PM TALENT BUYER Height 157.5 cm (5' 2 ) 05/21/2019 8:14 PM TALENT BUYER Body Mass Index 42.07 05/21/2019 8:14 PM TALENT BUYER Plan of Treatment Health Maintenance Due Date Last Done Comments Hepatitis C Virus (HCV) Screening 1950 TdaP Immunization 1950 Cologuard 2002 Immunochemical Fecal Occult Blood 2002 Pneumococcal Immunization (5 0+ years) (2 [...] MEDICARE C [employer] Care Teams Component Lab Tech Relationship Specialty Start Date End Date Wiley Causey MD [address] [place] [id number] PCP - General Family Medicine 06/28/22
--- OUTSIDE RECORDS SUMMARY | 2024-10-16 12:22 | XMS_ITS | Referral Summary ---
Author Organization [facility] Address [address] [place] [address] Care Team Providers Care Popcorn Attendant Name Role Phone Angel Cottrell DO Primary Care Provider [phone] Allergies Active Allergy Reactions Criticality Noted Date [...] mouth daily Monthly infusion Active vit D3-vit R-ubmwgoueb-hhn s [phone] qjxh-nuw-vf-mg tablet Take by mouth Active ergocalciferol (VITAMIN [...] - continue medication and follow up with Line Palletizer. 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
--- OUTSIDE RECORDS SUMMARY | 2024-10-16 12:22 | XMS_ITS | Clinical Summary ---
Author Organization [facility] Facility Address [address] [address] Care Team Providers Care Saddle And Side Wire Stitcher Name Role Phone Wiley Causey MD Primary Care Provider [phone] Allergies Active Allergy Reactions Criticality Noted Date [...] Comments Blood Pressure 132/62 09/15/2021 2:23 PM MANAGER MULTICULTURAL Pulse 93 06/16/2021 1:49 PM MANAGER MULTICULTURAL Temperature 36.4 C (97.6 F) 09/15/2021 2:23 PM MANAGER MULTICULTURAL Respiratory Rate 18 09/15/2021 2:23 PM MANAGER MULTICULTURAL Oxygen Saturation 98% 09/15/2021 2:23 PM MANAGER MULTICULTURAL Inhaled Oxygen Concentration - - Weight 101 kg (223 lb) 09/15/2021 2:23 PM MANAGER MULTICULTURAL Height 157.5 cm (5' 2 ) 09/15/2021 2:23 PM MANAGER MULTICULTURAL Body Mass Index 40.79 09/15/2021 2:23 PM MANAGER MULTICULTURAL Plan of Treatment Health Maintenance Due Date [...] Comments HEMOGLOBIN A1C Routine 07/01/2020 11:00 AM MANAGER MULTICULTURAL from Last 3 Months or Most Recently Relevant to Health Maintenance Results * (ABNORMAL) Hemoglobin A1c (07/01/2020 11:00 AM MANAGER MULTICULTURAL) Hemoglobin A1C 6.3(H) <5.7 % of total [...] diabetes for children. 07/01/2020 11:0 0 AM MANAGER MULTICULTURAL us Hay Jerez DO LAB BLOOD ORDERABLES Final R esult [facility] from Last 3 Months or Most Recently Relevant to Health Maintenance Insurance [employer]NA MEDICARE [place] Care Teams Saddle And Side Wire Stitcher Relationship Specialty Start Date End Date Wiley Causey MD [address] [place] [address] PCP - General Family Medicine 06/17/21
--- OUTSIDE RECORDS SUMMARY | 2024-10-16 12:22 | XMS_ITS | Clinical Summary ---
Author Organization [facility] Address [address] [place] [address] Phone Care Team Providers Care Mangle Feeder Name Role Phone Wiley Causey MD Primary Care Provider [phone] Allergies Active Allergy Reactions Criticality Noted Date [...] - continue medication and follow up with Chief Accountant. Obstructive sleep apnea syndrome 03/20/2020 Type 2 [...] 2017 Influenza Vaccine (#1) 2024 Care Teams Mangle Feeder Relationship Specialty Start Date End Date Wiley Causey MD PCP - General Family Medicine 10/05/21
[2024-10-16 13:14] LABS: Anion Gap 14 mmol/L (4-12); Blood Urea Nitrogen 18 mg/dL (7-17); Calcium 9.6 mg/dL (8.4-10.2); Carbon Dioxide 24 mmol/L (22-30); Chloride 101 mmol/L (98-107); Estimated Glomerular Filt Rate 33; Glucose 138 mg/dL (65-110); Potassium 4.3 mmol/L (3.4-5.0); Sodium 139 mmol/L (137-145)
[2024-10-16 13:21] LABS: INR 1.1; Partial Thromboplastin Time 25.5 Seconds (22.3-36.8); Prothrombin Time 14.3 Seconds (11.1-14.7)
[2024-10-16 13:38] LABS: Hematocrit 38.4 % (37.0-47.0); Hemoglobin 12.3 g/dL (12.0-15.0)
== END 2024-10-16 11:05 | disposition home or self-care (01) ==
PROVIDERS: Anesthesiology; PCP Nurse Practitioner Adult Health; Visit Provider Anesthesiology Pain Medicine
DX: D64.9 Anemia, unspecified (principal); N18.32 Chronic kidney disease, stage 3b; E11.22 Type 2 diabetes mellitus with diabetic chronic kidney disease
CPT/HCPCS: 36415; 80048; 85014; 85018; 85610; 85730

== ENCOUNTER 2024-11-14 09:37 | Outpatient (CLI) | payer MEDICARE, MEDICAID, SELFPAY ==
--- NOTE | ~2024-11-14 | NM_ITS ---
EXAMINATION: NM brian stress w perfusion DATE: 11/14/2024 13:56 CDT INDICATION: Preprocedural cardiac exam TECHNIQUE: Rest images were obtained following intravenous administration of 10 mCi Tc99m tetrofosmin (Myoview). The patient was infused intravenously with Lexiscan (regadenoson). Then, 33 mCi Tc99m tet rofosmin (Myoview) was administered intravenously, and stress images were obtained. Data was reconstr ucted into short axis and horizontal and vertical long axis SPECT images. Gated SPECT images were als o obtained. COMPARISON: None. FINDINGS: There is no definite reversible or fixed perfusion abnormality to suggest ischemia or infar ction. There is no segmental wall motion abnormality. Left ventricular ejection fraction measures 7 1%. IMPRESSION: 1. No definite ischemia or infarct. 2. Normal left ventricular ejection fraction measuring 71%. Reviewed, dictated and finalized at location A.
--- NOTE | 2024-11-14 10:01 | EST_ITS ---
Patient Info Name: Edith Mayo Age: 74 years : 1950 Gender: Female Ht: 62 in Wt: 210 lbs BSA: 2.09 m2 HR: 60 bpm BP: 145 / 69 mmHg Exam Date: 11/14/2024 11:03 AM Exam Location: Echo Lab Patient Status: Outpatient Admit Date: 11/14/2024 Staff Ordering Physician: Bronson Up DO Attending Provider: Bronson Up DO Exercise Technologist: Sirena Brower RDCS Exercise Physician: Bronson Up DO Exam Type: CA stress brian w NM Study Info A regadenoson stress test was performed. Summary 1. 1. Negative lexiscan stress test for ischemic ST changes by ECG criteria. 2. 2. Baseline hypertension. 3. 3. Nuclear scan to follow and will be reported separately. Please correlate with it. 4. 4. Patient informed of the above results. Protocol: Lexiscan Stress ECG Details Stage: REST Duration (min): 1 min : 0 sec HR (bpm): 89 SBP (mmHg): 145 DBP (mmHg): 69 Stage: REST Duration (min): 14 min : 17 sec HR (bpm): 90 SBP (mmHg): 145 DBP (mmHg): 69 Stage: STAGE 1 Duration (min): 0 min : 59 sec HR (bpm): 107 SBP (mmHg): 159 DBP (mmHg): 67 Stage: RECOVERY Duration (min): 1 min : 0 sec HR (bpm): 105 SBP (mmHg): 159 DBP (mmHg): 67 Stage: RECOVERY Duration (min): 2 min : 0 sec HR (bpm): 98 SBP (mmHg): 159 DBP (mmHg): 67 Stage: RECOVERY Duration (min): 3 min : 0 sec HR (bpm): 96 SBP (mmHg): 176 DBP (mmHg): 62 Stage: RECOVERY Duration (min): 3 min : 32 sec HR (bpm): 97 SBP (mmHg): 176 DBP (mmHg): 62 Rest HR: 90 bpm Peak HR: 107 bpm Rest Sys BP: 145 mmHg Peak Sys BP: 176 mmHg Max Pred HR: 148 bpm % Max Pred HR: 72 % Target HR: 126 bpm Max RPP: 18,832 bpm*mmHg Termination Reason: Completed protocol Cardiac Symptoms: Shortness of breath Total Time: 1 min : 0 sec Rest Lopez BP: 69 mmHg Peak Lopez BP: 62 mmHg Total Dose: 0.4 mg Resting ECG Sinus rhythm. Stress ECG No ST changes. Arrhythmias None. Report Signatures
--- OUTSIDE RECORDS SUMMARY | 2024-11-14 10:24 | XMS_ITS | Clinical Summary ---
Author Organization [facility] Address [address] [address] Phone Care Team Providers Care Lead Front End Developer Name Role Phone Wiley Causey MD Primary Care Provider [phone] Allergies Active Allergy Reactions Criticality Noted Date [...] on file Legal Sex Female 2:49 PM POWER GENERATION ENGINEER Gender Identity Not on file Sexual Orientation Not on file Last Filed Vital Signs Vital Sign Reading Time Taken Comments Blood Pressure 171/96 05/22/2019 12:50 AM POWER GENERATION ENGINEER Pulse 93 05/22/2019 12:50 AM POWER GENERATION ENGINEER Temperature 37.1 C (98.7 F) 05/21/2019 8:14 PM POWER GENERATION ENGINEER Respiratory Rate 30 05/22/2019 12:50 AM POWER GENERATION ENGINEER Oxygen Saturation 90% 05/22/2019 12:50 AM POWER GENERATION ENGINEER Inhaled Oxygen Concentration - - Weight 104.3 kg (230 lb) 05/21/2019 8:14 PM POWER GENERATION ENGINEER Height 157.5 cm (5' 2 ) 05/21/2019 8:14 PM POWER GENERATION ENGINEER Body Mass Index 42.07 05/21/2019 8:14 PM POWER GENERATION ENGINEER Plan of Treatment Health Maintenance Due Date [...] MEDICARE C [employer] Care Teams Lead Front End Developer Relationship Specialty Start Date End Date Wiley Causey MD [address] [place] [address] PCP - General Family Medicine 06/28/22
--- OUTSIDE RECORDS SUMMARY | 2024-11-14 10:24 | XMS_ITS | Clinical Summary ---
Author Organization [facility] Facility Address [address] [address] Care Team Providers Care Outreach Specialist Name Role Phone Wiley Causey MD Primary Care Provider [phone] Allergies Active Allergy Reactions Criticality Noted Date [...] Comments Blood Pressure 132/62 09/15/2021 2:23 PM RATE MARKER Pulse 93 06/16/2021 1:49 PM RATE MARKER Temperature 36.4 C (97.6 F) 09/15/2021 2:23 PM RATE MARKER Respiratory Rate 18 09/15/2021 2:23 PM RATE MARKER Oxygen Saturation 98% 09/15/2021 2:23 PM RATE MARKER Inhaled Oxygen Concentration - - Weight 101 kg (223 lb) 09/15/2021 2:23 PM RATE MARKER Height 157.5 cm (5' 2 ) 09/15/2021 2:23 PM RATE MARKER Body Mass Index 40.79 09/15/2021 2:23 PM RATE MARKER Plan of Treatment Health Maintenance Due Date Last Done Comments Breast Cancer Screening 1950 Pneumococcal Vaccine: 50+ Ye ars (1 of 2 - PCV) 1971 Colorectal Cancer Screening: Annual FOBT 2001 Colorectal [...] Comments HEMOGLOBIN A1C Routine 07/01/2020 11:00 AM RATE MARKER from Last 3 Months or Most Recently Relevant to Health Maintenance Results * (ABNORMAL) Hemoglobin A1c (07/01/2020 11:00 AM RATE MARKER) Hemoglobin A1C 6.3(H) <5.7 % of total [...] diabetes for children. 07/01/2020 11:0 0 AM RATE MARKER us Hay Jerez DO LAB BLOOD ORDERABLES Final R esult [facility] from Last 3 Months or Most Recently Relevant to Health Maintenance Insurance [employer] Medicare Medicaid [place] Care Teams Outreach Specialist Relationship Specialty Start Date End Date Wiley Causey MD [address] [place] [address] PCP - General Family Medicine 06/17/21
--- OUTSIDE RECORDS SUMMARY | 2024-11-14 10:25 | XMS_ITS | Clinical Summary ---
Author Organization [facility] Jeffery payan [facility] Address [address] [place] [address] Care Team Providers Care Scallop Cutter Name Role Phone Wiley Causey MD Primary Care Provider [phone] Allergies Active Allergy Reactions Criticality Noted Date Comments Atorvastatin Hives High 12/03/2020 Budesonide-Formoterol Muscle Pain Medium 11/26/2020 Tqprgla-Wci-Err Reductase Inhibitors Other (See Comments) 04/28/2021 Tramadol [...] mg by mouth. Active Vit D3 & Y-Avcatqloz-Xf ps [id number] pcye-hkn-bo-mg Tablet Take by mouth. Activ e omeprazole (PriLOSEC) 40 mg Capsule, Delayed Release(E.C.) Take 40 mg by mouth daily. Active topiramate (TOPAMAX) 25 mg tablet Take 25 mg by mouth daily. 08/04/19 22 Active Ozempic 1 mg/dose (4 mg/3 mL) Pen Injector 10/27/19 22 Active predniSONE (DELTASONE) 1 mg tablet TAKE 4 TABLETS BY MOUTH DAILY 10/17/19 22 Active allopurinoL (ZYLOPRIM) 300 mg tablet Take 300 mg by mouth daily. 10/21/19 22 Active HYDROcodone-ac etaminophen (NORCO) 5-325 mg tablet Take 1 Tablet by mouth every 8 hours as needed. 06/19/20 24 Active cyanocobalamin (VITAMIN B-12) 1,000 mcg/mL SolutionIndica tions:Other dietary vitamin B12 deficiency anemia ADMINISTER 1 ML(1000 MCG) IN THE MUSCLE EVERY 30 DAYS 1 mL 07/30/19 25 Active cyanocobalamin (VITAMIN B-12) 1,000 mcg/mL SolutionIndica tions:Other dietary vitamin B12 deficiency anemia Inject 1 mL (1,000 mcg) by intramuscular injection every 30 days. 1 mL 4 10/30/19 25 Active Syringe with Needle, Disp, 1 mL 27 x 1/2 SyringeIndicat ions:Other dietary vitamin B12 deficiency anemia Use with B12 injection. 1 Each 10/30/19 25 Active Syringe with Needle, Disp, 1 mL 27 x 1/2 SyringeIndicat ions:Other dietary vitamin B12 deficiency anemia Use 1 syringe to inject 1000 mcg vitamin B12 (1 mL) every 4 weeks. 1 Each 06/13/20 24 025 Discontin ued(Reord er) cyanocobalamin (VITAMIN B-12) 1,000 mcg/mL SolutionIndica tions:Other dietary vitamin B12 deficiency anemia Inject 1 mL (1,000 mcg) by intramuscular injection every 30 days. 1 mL 07/30/19 25 025 Discontin ued(Reord er) Active Problems Problem Noted Date Diagnosed Date Stage 3b chronic kidney disease 12/03/2020 Chronic anemia 12/03/2020 Other dietary vitamin B12 deficiency anemia 11/15 Encounters Date Type Department Care Team Description 10/29/2024 Refill [facility] Oncology and Hematology - [place] [address] [place] [address] Gabo Jiang MD Other dietary vitamin B12 deficiency anemia 09/05/2024 External Device Data STL ABSTRACTION Provider, Abstract 09/04/2024 External Device Data STL ABSTRACTION Provider, Abstract 08/28/2024 External Device Data STL ABSTRACTION Provider, Abstract from Last 3 Months Family History Medical [...] Comments Blood Pressure 178/92 06/27/2024 10:20 AM CERTIFIED PHYSICIAN ASSISTANT Pulse 94 06/27/2024 10:17 AM CERTIFIED PHYSICIAN ASSISTANT Temperature 36.7 C (98 F) 06/27/2024 10:17 AM CERTIFIED PHYSICIAN ASSISTANT Respiratory Rate 17 06/27/2024 10:17 AM CERTIFIED PHYSICIAN ASSISTANT Oxygen Saturation 97% 06/27/2024 10:17 AM CERTIFIED PHYSICIAN ASSISTANT Inhaled Oxygen Concentration - - Weight 93.3 kg (205 lb 9.6 oz) 06/27/2024 10:17 AM CERTIFIED PHYSICIAN ASSISTANT Height 157.5 cm (5' 2 ) 04/20/2022 2:54 PM CDT Body Mass Index 37.6 04/20/2022 2:54 PM CDT Plan of Treatment Upcoming Encounters Date Type Department Care Team (Late st Contact Info) Description 12/26/2024 1:00 PM CDT Office Visit [facility] Oncology and Hematology - [place] [address] [facility] [address] [place] [address] Gabo Jiang MD [address] [facility] [address] [place] [address] Health Maintenance Due Date Last [...] 07/01/2020, 08/2019 INFLUENZA VACCINE (#1) 2024 Insurance [employer] [facility] MEDICAID [place] Care Teams Scallop Cutter Relationship Specialty Start Date End Date Wiley Causey MD PCP - General Family Practice 08/04/21
--- OUTSIDE RECORDS SUMMARY | 2024-11-14 10:25 | XMS_ITS | Clinical Summary ---
Author Organization [facility] Address [address] [place] [address] Phone Care Team Providers Care Equipment Man Name Role Phone Wiley Causey MD Primary Care Provider [phone] Allergies Active Allergy Reactions Criticality Noted Date Comments Budesonide-Formoterol Fumarate muscle pain,Other (see comments) Medium 09/15/2018 Muscle spasms Muscle spasms Statins Hives,Other (see comments) High 12/03/2020 Other reaction(s): Other (See Comments) Tramadol Hives,Other (see comments) High 09/15/2018 Medications allopurinol (ZYLOPRIM) 300 MG tablet Take 300 mg by mouth 1 (one) time each day 2 Active amLODIPine (NORVASC) 5 MG tablet Take 5 mg by mouth 1 (one) time each day 2 Active betamethasone valerate (VALISONE) 0.1 % cream Apply topically Active Cyanocobalamin 1000 MCG capsule Take 1 capsule by mouth 1 Active Dulaglutide (Trulicity) 0.75 MG/0.5ML solution pen-injector INJECT 0.75 MG UNDER THE SKIN ONCE WEEKLY 1 Active Accu-Chek Iwona Plus test strip USE 1 STRIP TO TEST BLOOD SUGAR ONCE DAILY DIRECTED 2 Active Accu-Chek Softclix Lancets lancets USE 1 LANCET TO CHECK BLOOD SUGAR ONCE DAILY 2 Active lisinopril (PRINIVIL) 40 MG tablet 2 Active Magnesium Oxide 400 MG capsule Take 400 mg by mouth 2 times daily Active omeprazole (PriLOSEC) [address] capsule Take 40 mg by mouth 1 (one) time each day 2 Active potassium citrate (UROCIT-K) 10 MEQ (1080 MG) CR tablet Take 20 mEq by mouth 3 (three) times a day 2 Active predniSONE (DELTASONE) 1 MG tablet Take 4 mg by mouth 1 (one) time each day 2 Active Ozempic, 1 MG/DOSE, 4 MG/3ML solution pen-injector INJECT 1MG UNDER THE SKIN ONCE WEEKLY 2 Active topiramate (TOPAMAX) 25 MG tablet Take 25 mg by mouth daily 2 Active Diclofenac Sodium 1 % gel 2 Active oxybutynin (DITROPAN) 5 MG tablet TAKE 1 TABLET BY MOUTH THREE TIMES DAILY NEEDED FOR BLADDER SPASM 2 Active glimepiride (AMARYL) 2 MG tablet Take 2 mg by mouth 1 (one) time each day with breakfast 2 Active Active Problems Problem Noted Date Diagnosed Date COVID-19 04/21/2021 Chronic anemia 12/03/2020 Other dietary vitamin B12 deficiency anemia 11/15 Stage 3b chronic kidney disease 12/03/2020 Essential hypertension 03/20/2020 Overview (11/04/2021): Last Assessment & Plan: Complicated with CKD Creatinine 1.7- GFR 30 in February/2020 - continue medication and follow up with Editor Map. Obstructive sleep apnea syndrome 03/20/2020 Type 2 [...] 0.6 oz pur e alcohol) rare use Comments Unknown Sex and Gender Information Value Date Recorded Sex Assigned at Not on file Legal Sex Female 11:25 AM MDT Gender Identity Not on file Sexual Orientation [...] Medium Risk (1 of 4 - PCV) 2002 Influenza Vaccine (Season Ended) [address] [place] [address] [address] MEDICARE ADVANTAGE MEDICAID - [place] Care Teams Equipment Man Relationship Specialty Start Date End Date Wiley Causey MD PCP - General Family Medicine 10/05/21
--- OUTSIDE RECORDS SUMMARY | 2024-11-14 10:25 | XMS_ITS | Referral Summary ---
Author Organization [facility] Address [address] [place] [address] Care Team Providers Care Interior Decorator Painting Name Role Phone Angel Cottrell DO Primary Care Provider [phone] Allergies Active Allergy Reactions Criticality Noted Date [...] mouth daily Monthly infusion Active vit D3-vit X-vkaaarcgb-hpc s [phone] epty-hoa-zn-mg tablet Take by mouth Active ergocalciferol (VITAMIN [...] - continue medication and follow up with First Officer. MADDY (obstructive sleep apnea) 03/20/2020 Type 2 [...] on file Legal Sex Female 8:44 PM BOILER TESTER Gender Identity Not on file Sexual Orientation [...] [employer]NA CHOICE MEDICARE PPO IDPA Care Teams Interior Decorator Painting Relationship Specialty Start Date End Date Angel Cottrell DO PCP - General Family Medicine 03/11/20
--- OUTSIDE RECORDS SUMMARY | 2024-11-14 10:25 | XMS_ITS | Clinical Summary ---
Author Organization [facility] Address [address] [place] [address] Care Team Providers Care Dehydrogenation Operator Head Name Role Phone Angel Cottrell DO Primary Care Provider [phone] Allergies Active Allergy Reactions Criticality Noted Date [...] mouth daily Monthly infusion Active vit D3-vit Z-akcchnxgn-eod s [phone] btwl-kad-nn-mg tablet Take by mouth Active ergocalciferol (VITAMIN [...] - continue medication and follow up with Loan Funder. MADDY (obstructive sleep apnea) 03/20/2020 Type 2 [...] on file Legal Sex Female 8:44 PM AUDIOMETRIST Gender Identity Not on file Sexual Orientation [...] HUMANA CHOICE MEDICARE PPO IDPA Care Teams Dehydrogenation Operator Head Relationship Specialty Start Date End Date Angel Cottrell DO PCP - General Family Medicine 03/11/20
== END 2024-11-14 09:38 | disposition home or self-care (01) ==
LOC: ANHCARD 09:39
PROVIDERS: PCP Nurse Practitioner Adult Health; Visit Provider Internal Medicine Cardiovascular Disease
DX: Z01.810 Encounter for preprocedural cardiovascular examination (principal)
CPT/HCPCS: 78452; 93017; A9502; J2785

== ENCOUNTER 2024-11-22 07:31 | Outpatient (CLI) | payer MEDICARE, MEDICAID, SELFPAY ==
--- OUTSIDE RECORDS SUMMARY | 2024-11-22 07:36 | XMS_ITS | Referral Summary ---
Author Organization [facility] Address [address] [place] [address] Care Team Providers Care Hall Porter Name Role Phone Angel Cottrell DO Primary Care Provider [phone] Allergies Active Allergy Reactions Criticality Noted Date [...] mouth daily Monthly infusion Active vit D3-vit G-knbcfdrsy-tjo s [id number] mziz-slw-ze-mg tablet Take by mouth Active ergocalciferol (VITAMIN [...] - continue medication and follow up with Supervisor Sample Preparation. MADDY (obstructive sleep apnea) 03/20/2020 Type 2 [...] on file Legal Sex Female 8:44 PM RETURN TO SERVICE INSPECTOR Gender Identity Not on file Sexual [...] HUMANA CHOICE MEDICARE PPO IDPA Care Teams Hall Porter Relationship Specialty Start Date End Date Angel Cottrell DO PCP - General Family Medicine 03/11/20
--- OUTSIDE RECORDS SUMMARY | 2024-11-22 07:36 | XMS_ITS | Clinical Summary ---
Author Organization [facility] Address [address] [place] [address] Care Team Providers Care Needle Molder Name Role Phone Wiley Causey MD Primary Care Provider [phone] Allergies Active Allergy Reactions Criticality Noted Date Comments Atorvastatin Hives High 12/03/2020 Budesonide-Formoterol Muscle Pain Medium 11/26/2020 Mnnosmg-Zbv-Vmd Reductase Inhibitors Other (See Comments) 04/28/2021 Tramadol [...] mg by mouth. Active Vit D3 & L-Ulaqotorv-Ae ps [id number] hgyn-kqj-qo-mg Tablet Take by mouth. Activ e omeprazole [...] Type Department Care Team Description 10/29/2024 Refill [facility] Oncology and Hematology - [place] [address] [place] [address] Gabo Jiang MD Other dietary vitamin [...] Comments Blood Pressure 178/92 06/27/2024 10:20 AM AIRCRAFT SKIN BURNISHER Pulse 94 06/27/2024 10:17 AM AIRCRAFT SKIN BURNISHER Temperature 36.7 C (98 F) 06/27/2024 10:17 AM AIRCRAFT SKIN BURNISHER Respiratory Rate 17 06/27/2024 10:17 AM AIRCRAFT SKIN BURNISHER Oxygen Saturation 97% 06/27/2024 10:17 AM AIRCRAFT SKIN BURNISHER Inhaled Oxygen Concentration - - Weight 93.3 kg (205 lb 9.6 oz) 06/27/2024 10:17 AM AIRCRAFT SKIN BURNISHER Height 157.5 cm (5' 2 ) 04/20/2022 2:54 PM CDT Body Mass Index 37.6 04/20/2022 2:54 PM CDT Plan of Treatment Upcoming Encounters Date Type Department Care Team (Late st Contact Info) Description 12/26/2024 1:00 PM CDT Office Visit [facility] Oncology and Hematology - [place] [address] [facility] [address] [place] [address] Gabo Jiang MD [address] [facility] [address] [place] [address] Health Maintenance Due Date Last [...] 07/01/2020, 08/2019 INFLUENZA VACCINE (#1) [address] [facility] [place]ICAID [place] Care Teams Needle Molder Relationship Specialty Start Date End Date Wiley Causey MD PCP - General Family Practice 08/04/21
--- OUTSIDE RECORDS SUMMARY | 2024-11-22 07:36 | XMS_ITS | Clinical Summary ---
Author Organization [facility] Address [address] [place] [address] Phone Care Team Providers Care Developmental Writing Instructor Name Role Phone Wiley Causey MD Primary Care Provider [phone] Allergies Active Allergy Reactions Criticality Noted Date [...] - continue medication and follow up with Dining Services Director. Obstructive sleep apnea syndrome 03/20/2020 Type [...] Health Maintenance Due Date Last Done Comments Diabetic Foot Exam 1962 Ophthalmology Exam 1962 Pneumococcal PPSV23/PCV13 65 + Years / High and Highest Risk (1 of 5 - PCV) 1971 Influenza Vaccine (Season Ended) 2025 Insurance [employer]NA MEDICARE ADVANTAGE MEDICAID - [place] Care Teams Developmental Writing Instructor Relationship Specialty Start Date End Date Wiley Causey MD PCP - General Family Medicine 10/05/21
--- OUTSIDE RECORDS SUMMARY | 2024-11-22 07:36 | XMS_ITS | Clinical Summary ---
Author Organization [facility] Address [address] [address] Phone Care Team Providers Care Concrete Stone Finisher Name Role Phone Wiley Causey MD Primary Care Provider [phone] Allergies Active Allergy Reactions Criticality Noted Date [...] on file Legal Sex Female 2:49 PM SOCIAL MEDIA DIRECTOR Gender Identity Not on file Sexual Orientation Not on file Last Filed Vital Signs Vital Sign Reading Time Taken Comments Blood Pressure 171/96 05/22/2019 12:50 AM SOCIAL MEDIA DIRECTOR Pulse 93 05/22/2019 12:50 AM SOCIAL MEDIA DIRECTOR Temperature 37.1 C (98.7 F) 05/21/2019 8:14 PM SOCIAL MEDIA DIRECTOR Respiratory Rate 30 05/22/2019 12:50 AM SOCIAL MEDIA DIRECTOR Oxygen Saturation 90% 05/22/2019 12:50 AM SOCIAL MEDIA DIRECTOR Inhaled Oxygen Concentration - - Weight 104.3 kg (230 lb) 05/21/2019 8:14 PM SOCIAL MEDIA DIRECTOR Height 157.5 cm (5' 2 ) 05/21/2019 8:14 PM SOCIAL MEDIA DIRECTOR Body Mass Index 42.07 05/21/2019 8:14 PM SOCIAL MEDIA DIRECTOR Plan of Treatment Health Maintenance Due Date [...] MEDICARE C [employer] Care Teams Concrete Stone Finisher Relationship Specialty Start Date End Date Wiley Causey MD [address] [place] [id number] PCP - General Family Medicine 06/28/22
--- OUTSIDE RECORDS SUMMARY | 2024-11-22 07:36 | XMS_ITS | Clinical Summary ---
Author Organization [facility] Address [address] [place] [address] Care Team Providers Care Private Security Guard Name Role Phone Angel Cottrell DO Primary Care Provider [phone] Allergies Active Allergy Reactions Criticality Noted Date [...] mouth daily Monthly infusion Active vit D3-vit R-vcvmeuptl-isi s [id number] zhjn-ftg-re-mg tablet Take by mouth Active ergocalciferol (VITAMIN [...] - continue medication and follow up with Cargo And Container Inspector. MADDY (obstructive sleep apnea) 03/20/2020 Type 2 [...] on file Legal Sex Female 8:44 PM FUSION ANALYST Gender Identity Not on file Sexual [...] HUMANA CHOICE MEDICARE PPO IDPA Care Teams Private Security Guard Relationship Specialty Start Date End Date Angel Cottrell DO PCP - General Family Medicine 03/11/20
--- OUTSIDE RECORDS SUMMARY | 2024-11-22 07:36 | XMS_ITS | Clinical Summary ---
Author Organization [facility] Address [address] [address] Care Team Providers Care Retail Advisor Name Role Phone Wiley Causey MD Primary Care Provider [phone] Allergies Active Allergy Reactions Criticality Noted Date [...] Comments Blood Pressure 132/62 09/15/2021 2:23 PM INFORMATION SERVICES MANAGER Pulse 93 06/16/2021 1:49 PM INFORMATION SERVICES MANAGER Temperature 36.4 C (97.6 F) 09/15/2021 2:23 PM INFORMATION SERVICES MANAGER Respiratory Rate 18 09/15/2021 2:23 PM INFORMATION SERVICES MANAGER Oxygen Saturation 98% 09/15/2021 2:23 PM INFORMATION SERVICES MANAGER Inhaled Oxygen Concentration - - Weight 101 kg (223 lb) 09/15/2021 2:23 PM INFORMATION SERVICES MANAGER Height 157.5 cm (5' 2 ) 09/15/2021 2:23 PM INFORMATION SERVICES MANAGER Body Mass Index 40.79 09/15/2021 2:23 PM INFORMATION SERVICES MANAGER Plan of Treatment Health Maintenance Due Date [...] Comments HEMOGLOBIN A1C Routine 07/01/2020 11:00 AM INFORMATION SERVICES MANAGER from Last 3 Months or Most Recently Relevant to Health Maintenance Results * (ABNORMAL) Hemoglobin A1c (07/01/2020 11:00 AM INFORMATION SERVICES MANAGER) Hemoglobin A1C 6.3(H) <5.7 % of total [...] diabetes for children. 07/01/2020 11:0 0 AM INFORMATION SERVICES MANAGER us Hay Jerez DO LAB BLOOD ORDERABLES Final R esult [facility] from Last 3 Months or Most Recently Relevant to Health Maintenance Insurance [employer] Medicare Medicaid [place] Care Teams Retail Advisor Relationship Specialty Start Date End Date Wiley Causey MD [address] [place] [address] PCP - General Family Medicine 06/17/21
[2024-11-22 20:06] LABS: Creatinine Urine 172.4 mg/dL; Total Protein Urine Random 13 mg/dL; Ur Ttl Prot Creatinine Ratio 0.08 mg/mg (0-0.20)
[2024-11-22 20:13] LABS: Parathyroid Intact 43.2 pg/mL (14.5-75.2)
[2024-11-22 20:22] LABS: Albumin Level 4.1 g/dL (3.5-5.1); Anion Gap 11 mmol/L (4-12); Blood Urea Nitrogen 15 mg/dL (7-17); Calcium 9.4 mg/dL (8.4-10.2); Carbon Dioxide 26 mmol/L (22-30); Chloride 103 mmol/L (98-107); Estimated Glomerular Filt Rate 35; Glucose 141 mg/dL (65-110); Phosphorus 4.2 mg/dL (2.5-4.5); Sodium 140 mmol/L (137-145)
[2024-11-22 20:31] LABS: Vitamin D 25 Hydroxy 21.6 ng/mL
== END 2024-11-22 07:32 | disposition home or self-care (01) ==
LOC: ANHBWCLAB 07:33
PROVIDERS: PCP Nurse Practitioner Adult Health; Visit Provider Internal Medicine Nephrology
DX: I12.9 Hypertensive chronic kidney disease with stage 1 through stage 4 chronic kidney disease, or unspecified chronic kidney disease (principal); E11.22 Type 2 diabetes mellitus with diabetic chronic kidney disease; N18.32 Chronic kidney disease, stage 3b; N20.0 Calculus of kidney; N25.81 Secondary hyperparathyroidism of renal origin; E55.9 Vitamin D deficiency, unspecified
CPT/HCPCS: 36415; 80069; 82306; 82570; 83970; 84156

== ENCOUNTER 2024-12-04 00:14 | Day surgery (SDC) | payer MEDICARE, MEDICAID, SELFPAY ==
--- NOTE | 2024-10-08 12:40 | PC.NURSE ---
Report to the Outpatient Waiting Room, entrance under the green pavilion located off [facility], at time __7 AM on date _10/23/24 . Planned Procedure Time: __9 AM . Time changes happen often and if your time is changed the preop area will call you the afternoon before. - You and your visitor will be asked to self-screen and do not enter if you have any COVID symptoms. Please call surgeon if you need to reschedule. - A mask is optional within the hospital at this time. NOTHING TO EAT OR DRINK AFTER MIDNIGHT PER DR VERA Take only the following medications with a SIP of water on the morning of surgery: _INHALER IF NEEDED,HYDROCODONE IF NEEDED DO NOT STOP ANY OF YOUR OTHER PRESCRIPTION MEDICATIONS PRIOR TO SURGERY EXCEPT THE FOLLOWING Hold all vitamins and supplements for 3 days per anesthesiologist.LAST DOSE10/19/24 Medications to discontinue per physician NONE Please no make-up, nail estonian, hairspray, perfume, deodorant, or body powder the day of surgery. No jewelry (including any body piercings) or valuables the day of surgery, leave them at home. Please take a shower or bath the night before, AND the morning of, surgery with an antibacterial soap. Wear comfortable, loose fitting clothing. Children are encouraged to wear pajamas. - Jewelry must be removed prior to entering the operating room. Rings and piercings that are not removed may be cut off. - The hospital will not accept responsibility for valuables. - Please leave all valuables, including medications, at home the day of surgery. If you are going home after surgery, a licensed wedding transportation driver must drive you home. - NO public transportation without another adult if you receive anesthesia. - We recommend that an adult stay with you for 24 hours following discharge. - We also recommend that you do not drive, make important decision, drink alcoholic beverages, or take any drugs that were not prescribed by your health care provider for at least 24 hours after your discharge time. For Pediatric surgeries, we recommend two adults accompany the child home. Follow any additional instructions given to you from your surgeon. Telephone instructions given to _PATIENT and asked if any additional questions and then verbalized understanding. Patient advised to call surgeon office or pre surgery nurse liaison [phone] if any additional questions.
[2024-10-08 12:59] VITALS: BMI 38.4
--- OUTSIDE RECORDS SUMMARY | 2024-10-23 00:05 | XMS_ITS | Clinical Summary ---
Author Organization [facility] Facility Address [address] [address] Care Team Providers Care Manager Group Name Role Phone Wiley Causey MD Primary Care Provider [phone] Allergies Active Allergy Reactions Criticality Noted Date [...] Comments Blood Pressure 132/62 09/15/2021 2:23 PM FIELD SERVICE SPECIALIST Pulse 93 06/16/2021 1:49 PM FIELD SERVICE SPECIALIST Temperature 36.4 C (97.6 F) 09/15/2021 2:23 PM FIELD SERVICE SPECIALIST Respiratory Rate 18 09/15/2021 2:23 PM FIELD SERVICE SPECIALIST Oxygen Saturation 98% 09/15/2021 2:23 PM FIELD SERVICE SPECIALIST Inhaled Oxygen Concentration - - Weight 101 kg (223 lb) 09/15/2021 2:23 PM FIELD SERVICE SPECIALIST Height 157.5 cm (5' 2 ) 09/15/2021 2:23 PM FIELD SERVICE SPECIALIST Body Mass Index 40.79 09/15/2021 2:23 PM FIELD SERVICE SPECIALIST Plan of Treatment Health Maintenance Due Date [...] Diabetes: Visual Foot Exam 12/11/2020 Influenza Vaccine (Season Ended) 2025 Hepatitis B Vaccine Aged Out No longe r eligible based on patient's age to complete this topic Procedures Procedure Name Priority Date/Time Associated Diagnosis Comments HEMOGLOBIN A1C Routine 07/01/2020 11:00 AM FIELD SERVICE SPECIALIST from Last 3 Months or Most Recently Relevant to Health Maintenance Results * (ABNORMAL) Hemoglobin A1c (07/01/2020 11:00 AM FIELD SERVICE SPECIALIST) Hemoglobin A1C 6.3(H) <5.7 % of total [...] diabetes for children. 07/01/2020 11:0 0 AM FIELD SERVICE SPECIALIST us Hay Jerez DO LAB BLOOD ORDERABLES Final R esult [facility] from Last 3 Months or Most Recently Relevant to Health Maintenance Insurance [employer]NA MEDICARE [place] Care Teams Manager Group Relationship Specialty Start Date End Date Wiley Causey MD [address] [place] [address] PCP - General Family Medicine 06/17/21
--- OUTSIDE RECORDS SUMMARY | 2024-10-23 00:05 | XMS_ITS | Clinical Summary ---
Author Organization [facility] Address [address] [address] Phone Care Team Providers Care Director Of Retail Name Role Phone Wiley Causey MD Primary Care Provider Allergies Active Allergy Reactions Criticality Noted Date [...] on file Legal Sex Female 2:49 PM OUTSIDE OPERATOR Gender Identity Not on file Sexual Orientation Not on file Last Filed Vital Signs Vital Sign Reading Time Taken Comments Blood Pressure 171/96 05/22/2019 12:50 AM OUTSIDE OPERATOR Pulse 93 05/22/2019 12:50 AM OUTSIDE OPERATOR Temperature 37.1 C (98.7 F) 05/21/2019 8:14 PM OUTSIDE OPERATOR Respiratory Rate 30 05/22/2019 12:50 AM OUTSIDE OPERATOR Oxygen Saturation 90% 05/22/2019 12:50 AM OUTSIDE OPERATOR Inhaled Oxygen Concentration - - Weight 104.3 kg (230 lb) 05/21/2019 8:14 PM OUTSIDE OPERATOR Height 157.5 cm (5' 2 ) 05/21/2019 8:14 PM OUTSIDE OPERATOR Body Mass Index 42.07 05/21/2019 8:14 PM OUTSIDE OPERATOR Plan of Treatment Health Maintenance Due Date [...] MEDICARE C [employer] Care Teams Director Of Retail Relationship Specialty Start Date End Date Wiley Causey MD [address] [place] [address] PCP - General Family Medicine 06/28/22
--- OUTSIDE RECORDS SUMMARY | 2024-10-23 00:05 | XMS_ITS | Clinical Summary ---
Author Organization [facility] Jeffery payan [facility] Address [address] [place] [address] Care Team Providers Care Insurance Loss Adjuster Name Role Phone Wiley Causey MD Primary Care Provider [phone] Allergies Active Allergy Reactions Criticality Noted Date Comments Atorvastatin Hives High 12/03/2020 Budesonide-Formoterol Muscle Pain Medium 11/26/2020 Vfcnuwu-Jqu-Yba Reductase Inhibitors Other (See Comments) 04/28/2021 Tramadol [...] mg by mouth. Active Vit D3 & H-Rhdpqslmd-Ez ps [id number] pbbf-zpv-tg-mg Tablet Take by mouth. Activ e omeprazole [...] Data [facility]L ABSTRACTION Provider, Abstract 07/30/2024 Refill [facility] Oncology and Hematology - [place] [address] [place] [address] Gabo Jiang MD Other dietary vitamin B12 deficiency anemia 07/29/2024 Refill [facility] Oncology and Hematology - [place] [address] [place] [address] Gabo Jiang MD Other dietary vitamin B12 [...] Comments Blood Pressure 178/92 06/27/2024 10:20 AM GROCERY BUYER Pulse 94 06/27/2024 10:17 AM GROCERY BUYER Temperature 36.7 C (98 F) 06/27/2024 10:17 AM GROCERY BUYER Respiratory Rate 17 06/27/2024 10:17 AM GROCERY BUYER Oxygen Saturation 97% 06/27/2024 10:17 AM GROCERY BUYER Inhaled Oxygen Concentration - - Weight 93.3 kg (205 lb 9.6 oz) 06/27/2024 10:17 AM GROCERY BUYER Height 157.5 cm (5' 2 ) 04/20/2022 2:54 PM CDT Body Mass Index 37.6 04/20/2022 2:54 PM CDT Plan of Treatment Upcoming Encounters Date Type Department Care Team (Late st Contact Info) Description 12/26/2024 1:00 PM CDT Office Visit [facility] Oncology and Hematology [facility] [address] [place] [address] [facility] [address] [place] [address] Gabo Jiang MD [address] [facility] [address] [place] [address] Health Maintenance Due Date Last [...] 07/01/2020, 08/2019 INFLUENZA VACCINE (#1) 2024 Insurance [employer] [facility] [place]ID [place] Care Teams Insurance Loss Adjuster Relationship Specialty Start Date End Date Wiley Causey MD PCP - General Family Practice 08/04/21
--- OUTSIDE RECORDS SUMMARY | 2024-10-23 00:05 | XMS_ITS | Referral Summary ---
Author Organization [facility] Address [address] [place] [address] Care Team Providers Care Assistant Administrator Name Role Phone Angel Cottrell DO Primary Care Provider [phone] Allergies Active Allergy Reactions Criticality Noted Date [...] mouth daily Monthly infusion Active vit D3-vit D-demqyarrk-yzs s [phone] rzab-opb-qf-mg tablet Take by mouth Active ergocalciferol (VITAMIN [...] - continue medication and follow up with Boom Conveyor Operator. MADDY (obstructive sleep apnea) 03/20/2020 Type 2 [...] on file Legal Sex Female 8:44 PM TESTER REGULATOR Gender Identity Not on file Sexual Orientation [...] HUMANA CHOICE MEDICARE PPO [place] Care Teams Assistant Administrator Relationship Specialty Start Date End Date Angel Cottrell DO PCP - General Family Medicine 03/11/20
--- OUTSIDE RECORDS SUMMARY | 2024-10-23 00:05 | XMS_ITS | Clinical Summary ---
Author Organization [facility] Address [address] [place] [address] Care Team Providers Care Supervisor Char House Name Role Phone Angel Cottrell DO Primary Care Provider [phone] Allergies Active Allergy Reactions Criticality Noted Date [...] mouth daily Monthly infusion Active vit D3-vit J-iedbqssst-scz s [phone] rmkr-dho-bd-mg tablet Take by mouth Active ergocalciferol (VITAMIN [...] - continue medication and follow up with Logistic Manager. MADDY (obstructive sleep apnea) 03/20/2020 Type [...] on file Legal Sex Female 8:44 PM SERVICE STATION MANAGER Gender Identity Not on file Sexual [...] HUMANA CHOICE MEDICARE PPO IDPA Care Teams Supervisor Char House Relationship Specialty Start Date End Date Angel Cottrell DO PCP - General Family Medicine 03/11/20
--- OUTSIDE RECORDS SUMMARY | 2024-10-23 00:05 | XMS_ITS | Clinical Summary ---
Author Organization [facility] Address [address] [place] [address] Phone Care Team Providers Care Piano Case And Bench Assembler Name Role Phone Wiley Causey MD Primary Care Provider [phone] Allergies Active Allergy Reactions Criticality Noted Date [...] - continue medication and follow up with Road Oiler. Obstructive sleep apnea syndrome 03/20/2020 Type 2 [...] of 4 - PCV) 2017 Influenza Vaccine (Season Ended) 2025 Care Teams Piano Case And Bench Assembler Relationship Specialty Start Date End Date Wiley Causey MD PCP - General Family Medicine 10/05/21
--- NOTE | 2024-11-30 09:33 | PC.NURSE ---
Report to the Outpatient Waiting Room, entrance under the green pavilion located off [facility], at time _11:30 am on date __12/04/24 . Planned Procedure Time: __1330 . Time changes happen often and if your time is changed the preop area will call you the afternoon before. - You and your visitor will be asked to self-screen and do not enter if you have any COVID symptoms. Please call surgeon if you need to reschedule. - A mask is optional within the hospital at this time. NOTHING TO EAT OR DRINK AFTER MIDNIGHT PER DR VERA Take only the following medications with a SIP of water on the morning of surgery: ___INHALER IF NEEDED,HYDROCODONE IF NEEDED DO NOT STOP ANY OF YOUR OTHER PRESCRIPTION MEDICATIONS PRIOR TO SURGERY EXCEPT THE FOLLOWING Hold all vitamins and supplements for 3 days per anesthesiologist.LAST DOSE 11/30/24 Medications to discontinue per physician NONE Date to take last dose Please no make-up, nail beninese, hairspray, perfume, deodorant, or body powder the day of surgery. No jewelry (including any body piercings) or valuables the day of surgery, leave them at home. Please take a shower or bath the night before, or the morning of, surgery with an antibacterial soap. Wear comfortable, loose fitting clothing. Children are encouraged to wear pajamas. - Jewelry must be removed prior to entering the operating room. Rings and piercings that are not removed may be cut off. - The hospital will not accept responsibility for valuables. - Please leave all valuables, including medications, at home the day of surgery. If you are going home after surgery, a licensed truck driver teamster must drive you home. - NO public transportation without another adult if you receive anesthesia. - We recommend that an adult stay with you for 24 hours following discharge. - We also recommend that you do not drive, make important decision, drink alcoholic beverages, or take any drugs that were not prescribed by your health care provider for at least 24 hours after your discharge time. For Pediatric surgeries, we recommend two adults accompany the child home. Follow any additional instructions given to you from your surgeon. Telephone instructions given to ___PATIENT and asked if any additional questions and then verbalized understanding. Patient advised to call surgeon office or pre surgery nurse liaison [phone] if any additional questions.
--- NOTE | 2024-11-30 09:48 | PC.NURSE ---
PT STATES NO CHANGE IN HEALTH HX SINCE LAST INTERVIEW. STRESS TEST WAS DONE 11/14/[address] BREAUX
[2024-12-04] VITALS (9 sets, daily range): BP systolic 130–152; BP diastolic 57–70; PULSE 79–92; RESP 12–20; TEMP 36.6–37.4; O2SAT 92–100; BMI 38.1
--- OUTSIDE RECORDS SUMMARY | 2024-12-04 00:16 | XMS_ITS | Clinical Summary ---
Author Organization [facility] Address [address] [address] Phone Care Team Providers Care Office Manager Name Role Phone Wiley Causey MD Primary Care Provider [phone] Allergies Active Allergy Reactions Criticality Noted Date [...] on file Legal Sex Female 2:49 PM ENGLISH TEACHER Gender Identity Not on file Sexual Orientation Not on file Last Filed Vital Signs Vital Sign Reading Time Taken Comments Blood Pressure 171/96 05/22/2019 12:50 AM ENGLISH TEACHER Pulse 93 05/22/2019 12:50 AM ENGLISH TEACHER Temperature 37.1 C (98.7 F) 05/21/2019 8:14 PM ENGLISH TEACHER Respiratory Rate 30 05/22/2019 12:50 AM ENGLISH TEACHER Oxygen Saturation 90% 05/22/2019 12:50 AM ENGLISH TEACHER Inhaled Oxygen Concentration - - Weight 104.3 kg (230 lb) 05/21/2019 8:14 PM ENGLISH TEACHER Height 157.5 cm (5' 2 ) 05/21/2019 8:14 PM ENGLISH TEACHER Body Mass Index 42.07 05/21/2019 8:14 PM ENGLISH TEACHER Plan of Treatment Health Maintenance Due [...] MEDICARE C [employer] [place] Care Teams Office Manager Relationship Specialty Start Date End Date Wiley Causey MD [address] [place] [address] PCP - General Family Medicine 06/28/22
--- OUTSIDE RECORDS SUMMARY | 2024-12-04 00:17 | XMS_ITS | Referral Summary ---
Author Organization [facility] Address [address] [place] [address] Care Team Providers Care Podiatric Foot And Ankle Specialist Name Role Phone Angel Cottrell DO Primary Care Provider [phone] Allergies Active Allergy Reactions Criticality Noted Date [...] mouth daily Monthly infusion Active vit D3-vit M-zctweiujm-rmp s [id number] ujzt-vse-vc-mg tablet Take by mouth Active ergocalciferol (VITAMIN [...] continue medication and follow up with Director Of Industrial Relations. MADDY (obstructive sleep apnea) 03/20/2020 Type 2 [...] on file Legal Sex Female 8:44 PM MDS COORDINATOR Gender Identity Not on file Sexual [...] HUMANA CHOICE MEDICARE PPO IDPA Care Teams Podiatric Foot And Ankle Specialist Relationship Specialty Start Date End Date Angel Cottrell DO PCP - General Family Medicine 03/11/20
--- OUTSIDE RECORDS SUMMARY | 2024-12-04 00:17 | XMS_ITS | Clinical Summary ---
Author Organization [facility] Address [address] [place] [address] Care Team Providers Care Sales Support Coordinator Name Role Phone Angel Cottrell DO Primary Care Provider [phone] Allergies Active Allergy Reactions Criticality Noted Date [...] mouth daily Monthly infusion Active vit D3-vit X-grfmrmcgz-agb s [id number] alju-hqd-ds-mg tablet Take by mouth Active ergocalciferol (VITAMIN [...] - continue medication and follow up with Photonic Laboratory Technician. MADDY (obstructive sleep apnea) 03/20/2020 Type 2 [...] on file Legal Sex Female 8:44 PM DELIVERY RECRUITER Gender Identity Not on file Sexual Orientation [...] HUMANA CHOICE MEDICARE PPO IDPA Care Teams Sales Support Coordinator Relationship Specialty Start Date End Date Angel Cottrell DO PCP - General Family Medicine 03/11/20
--- OUTSIDE RECORDS SUMMARY | 2024-12-04 00:17 | XMS_ITS | Clinical Summary ---
Author Organization [facility] Address [address] [address] Care Team Providers Care E Commerce Strategist Name Role Phone Wiley Causey MD Primary Care Provider [phone] Allergies Active Allergy Reactions Criticality Noted Date [...] Comments Blood Pressure 132/62 09/15/2021 2:23 PM FLATWORK TIER Pulse 93 06/16/2021 1:49 PM FLATWORK TIER Temperature 36.4 C (97.6 F) 09/15/2021 2:23 PM FLATWORK TIER Respiratory Rate 18 09/15/2021 2:23 PM FLATWORK TIER Oxygen Saturation 98% 09/15/2021 2:23 PM FLATWORK TIER Inhaled Oxygen Concentration - - Weight 101 kg (223 lb) 09/15/2021 2:23 PM FLATWORK TIER Height 157.5 cm (5' 2 ) 09/15/2021 2:23 PM FLATWORK TIER Body Mass Index 40.79 09/15/2021 2:23 PM FLATWORK TIER Plan of Treatment Health Maintenance Due Date [...] Comments HEMOGLOBIN A1C Routine 07/01/2020 11:00 AM FLATWORK TIER from Last 3 Months or Most Recently Relevant to Health Maintenance Results * (ABNORMAL) Hemoglobin A1c (07/01/2020 11:00 AM FLATWORK TIER) Hemoglobin A1C 6.3(H) <5.7 % of total [...] diabetes for children. 07/01/2020 11:0 0 AM FLATWORK TIER us Hay Jerez DO LAB BLOOD ORDERABLES Final R esult [facility] from Last 3 Months or Most Recently Relevant to Health Maintenance Insurance [employer] Medicare Medicaid [place] Care Teams E Commerce Strategist Relationship Specialty Start Date End Date Wiley Causey MD [address] [place] [address] PCP - General Family Medicine 06/17/21
--- OUTSIDE RECORDS SUMMARY | 2024-12-04 00:17 | XMS_ITS | Clinical Summary ---
Author Organization [facility] Jeffery payan [facility] Address [address] [place] [address] Care Team Providers Care Rn Infusion Name Role Phone Wiley Causey MD Primary Care Provider [phone] Allergies Active Allergy Reactions Criticality Noted Date Comments Atorvastatin Hives High 12/03/2020 Budesonide-Formoterol Muscle Pain Medium 11/26/2020 Fnjsxjg-Lgb-Rdf Reductase Inhibitors Other (See Comments) 04/28/2021 Tramadol [...] mg by mouth. Active Vit D3 & U-Lhvjtdptt-Lg ps [phone] yrec-svt-xe-mg Tablet Take by mouth. Activ e omeprazole [...] 300 mg by mouth daily. 2 Active HYDROcodone-ac etaminophen (NORCO) 5-325 mg tablet [...] injection every 30 days. 1 mL 4 5 Active Syringe with Needle, Disp, 1 mL 27 x 1/2 SyringeIndicat ions:Other dietary vitamin B12 deficiency anemia Use with B12 injection. 1 Each 4 5 Active Active Problems Problem Noted Date Diagnosed Date Stage 3b chronic kidney disease 12/03/2020 Chronic anemia 12/03/2020 Other dietary vitamin B12 deficiency anemia 11/15 Encounters Date Type Department Care Team Description 10/29/2024 Refill [facility] Oncology and Hematology - [place] [address] [facility] [address] [address] Gabo Jiang MD Other dietary vitamin [...] Comments Blood Pressure 178/92 06/27/2024 10:20 AM PIANO ACCOMPANIST Pulse 94 06/27/2024 10:17 AM PIANO ACCOMPANIST Temperature 36.7 C (98 F) 06/27/2024 10:17 AM PIANO ACCOMPANIST Respiratory Rate 17 06/27/2024 10:17 AM PIANO ACCOMPANIST Oxygen Saturation 97% 06/27/2024 10:17 AM PIANO ACCOMPANIST Inhaled Oxygen Concentration - - Weight 93.3 kg (205 lb 9.6 oz) 06/27/2024 10:17 AM PIANO ACCOMPANIST Height 157.5 cm (5' 2 ) 04/20/2022 2:54 PM CDT Body Mass Index 37.6 04/20/2022 2:54 PM CDT Plan of Treatment Upcoming Encounters Date Type Department Care Team (Late st Contact Info) Description 12/26/2024 1:00 PM CDT Office Visit [facility] Oncology and Hematology - [place] [address] [facility] [address] [place] [address] Gabo Jiang MD [address] [facility] [address] [place] [address] Health Maintenance Due Date Last [...] 07/01/2020, 08/2019 INFLUENZA VACCINE (#1) 2024 Insurance [employer] [facility] [place]ID [place] Care Teams Rn Infusion Relationship Specialty Start Date End Date Wiley Causey MD PCP - General Family Practice 08/04/21
--- OUTSIDE RECORDS SUMMARY | 2024-12-04 00:17 | XMS_ITS | Clinical Summary ---
Author Organization [facility] Address [address] [place] [id number] Phone Care Team Providers Care Labor Economics Professor Name Role Phone Wiley Causey MD Primary Care Provider [phone] Allergies Active Allergy Reactions Criticality Noted Date [...] - continue medication and follow up with [facility]. Obstructive sleep apnea syndrome 03/20/2020 Type 2 [...] 2002 Influenza Vaccine (Season Ended) [address] [place] [address] MEDICARE ADVANTAGE MEDICAID - [place] Care Teams Labor Economics Professor Relationship Specialty Start Date End Date Wiley Causey MD PCP - General Family Medicine 10/05/21
--- NOTE | 2024-12-04 12:30 | P.PNAN_ITS ---
Anes - Initial Pre Proc Eval Procedure: Operation Date: 12/04/24 13:30 Proposed Procedures p Minimally Invasive Lumbar Decompression at Bilateral L3-L4, L4-L5 Under Fluoroscopic Guidance with Possible Epidurogram - Darrell Aquino MD Date/Time: 12/04/24 12:30 Surgeon: Darrell Aquino MD Pre Op Diagnosis: Spinal stenosis of the lumbar region Patient Data Age: 74 Gender: F Height: 1.57 m Weight: 95.3 kg Allergies Allergy/AdvReac Type Severity Reaction Status Date / Time tramadol Allergy Severe Hives Verified 11/30/24 09:37 atorvastatin AdvReac Severe Nausea and Verified 11/30/24 09:37 Vomiting pravastatin AdvReac Intermediate Nausea and Verified 11/30/24 09:37 Vomiting budesonide AdvReac Mild Muscle Verified 11/30/24 09:37 Spasms formoterol AdvReac Mild Muscle Verified 11/30/24 09:37 Spasms Home Medications Medication Instructions Recorded Confirmed Type allopurinol 300 mg tablet 300 mg PO DAILY 10/27/21 11/27/24 History mecobalamin (vitamin B12) 10,000 10,000 mcg subcut MONTHLY 08/24/23 11/27/24 History mcg solution for injection amlodipine 5 mg tablet 5 mg PO DAILY #90 tabs 11/09/23 11/27/24 Rx blood sugar diagnostic (Accu-Chek #100 strips 11/28/23 11/27/24 Rx Iwona Plus test strips) blood sugar diagnostic #100 ea 11/29/23 11/27/24 Rx omega 4-scy-zik-fish oil 1,000 mg 3 cap PO DAILY 02/16/24 11/27/24 History (120 mg-180 mg) capsule (Fish Oil) betamethasone dipropionate 0.05 % 1 applic topical BID PRN rash #45 02/23/24 11/27/24 Rx topical cream grams blood sugar diagnostic (Accu-Chek #100 ea 02/23/24 11/27/24 Rx Iwona Plus test strips) blood-glucose meter (Blood Glucose #1 ea 02/23/24 11/27/24 Rx Monitoring kit) lancets (Accu-Chek Softclix #100 ea 02/23/24 11/27/24 Rx Lancets) albuterol sulfate 90 mcg/actuation 1 - 2 inh inhalation Q4-6H PRN 06/07/24 11/27/24 Rx aerosol inhaler shortness of breath or wheezing #8.5 grams baclofen 10 mg tablet 10 mg PO BID #60 tabs 08/27/24 11/27/24 Rx pantoprazole 40 mg tablet,delayed See Rx Instructions .Route 10/29/24 11/30/24 Rx release .COMPLEX #90 tabs semaglutide 1 mg/dose (4 mg/3 mL) See Rx Instructions .Route 10/29/24 11/30/24 Rx subcutaneous pen injector (Ozempic) .COMPLEX #9 mL hydrocodone 5 mg-acetaminophen 325 1 tablet PO Q12H PRN pain #60 tabs 11/09/24 11/30/24 Rx mg tablet Patient hx anesthesia problems: none Family hx anesthesia problems: none Results Review: All pre-operative results and documents have been reviewed as part of the pre- operative evaluation. [facility] Past Medical History Medical History Lower abdominal pain Montgomery esophagus Increased PTH level Gout Chronic kidney disease, stage IV (severe) Diastolic dysfunction Obstructive sleep apnea on CPAP Gastroesophageal reflux disease Non-insulin dependent type 2 diabetes mellitus Anemia Screening for breast cancer Generalized osteoarthritis of multiple sites Iron deficiency anemia Psoriasis Kidney disease Wears glasses Claustrophobia Degenerative arthritis of left knee Chronic neck pain MRI of cervical spine demonstrated [id number] cervical spondylosis C5 through C7, left foraminal narrowing and moderate right foraminal narrowing C5-C6, spinal stenosis with minimal flattening along the ventral cord C5 through C7. Morbid obesity Incontinence Asthma Hypercholesterolemia Hypertension Surgical History Surgical History History of esophageal dilatation History of bilateral cataract extraction History of colonoscopy History of cholecystectomy Status post cystoscopy with ureteral stent placement History of lithotripsy History of appendectomy History of total abdominal hysterectomy and bilateral salpingo-oophorectomy due to dysfunctional uterine bleeding History of bilateral tubal ligation Family History Family History Grandparent Acute myocardial infarction Family history of malignant neoplasm Carcinoma of colon Mother Family history of liver disease Mother who in her late 50s of cirrhosis related to hepatitis C Diabetes mellitus Father Leukemia father who in his 60s of leukemia. Heart disease Sibling Heart disease Social History Social History Social History: She lives with a roommate in [place]. 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 She then went on disability when she had a nervous breakdown. She has 3 children who are all healthy. She is a former smoker and smoked at least 2 packs of cigarettes per day from the age of 17 to age 57. She rarely drinks alcohol and only in moderation. Surrogate decision maker: Aarti Gupta (daughter). Code status: Full code. Smoking packs per day: 2 Smoking cigarettes per day: 40.0 Years smoked: 40 Smoking pack-years: 80.00 Smoking status: Former smoker Tobacco type: cigarettes Smoking end date: 07/18/06 Alcohol intake: never Alcohol use details: 1 per month Substance use: never Substance use type: does not use Do You Feel Safe in your Home?: Yes Lack of Transportation: No Lack of Food: Never True Current Housing: I Have Housing Concerned About Future Housing: No Difficulty Paying Gas/Electric Bills: No Difficulty Paying for Meds: No Currently Unemployed: No Education: High School Diploma/GED Difficulty w/ Childcare or Family Care: No Living arrangements: with roommate(s) Occupation/Education: retired Gender identity (if verbalized by the patient): Female Spiritual care concerns: No Anes - Eval Final PreProcedure Day of Procedure 12/04/24 12:30 Patient weight: obese Heart: regular rate and rhythm Lungs: clear to auscultation Airway: Mallampati scale class III Neurological: alert and oriented Last oral intake: >/= 8 hours ASA classification: III Emergent: no Anesthetic plan: proceed Anesthesia type and monitoring: general ETT and standard monitoring Results Review: All pre-operative results and documents have been reviewed as part of the pre- operative evaluation. Informed Consent: The patient's anesthetic plan and its attendant risks and benefits were discussed with the patient/family/POA. Questions were solicited and answers provided to the satisfaction of the patient/family/POA.
[2024-12-04 12:58] LABS: Glucose Point of Care 115 mg/dl (65-105)
[2024-12-04] MEDS: LACTATED RINGERS 1,000 ML 30 ML IV CONT ×2 (13:04→15:00)
--- NOTE | 2024-12-04 13:06 | P.HP_ITS ---
History of Present Illness History of Present Illness Consent: Risks, benefits, and alternatives have been discussed and questions answered. Patient agrees to proceed with procedure. Chief complaint: Spinal stenosis lumbar region, neurogenic claudica Narrative: Edith Mayo is a 74 year old female with chronic, recalcitrant and disabling bilateral lumbosacral low back lower extremity pain secondary to lumbar spinal stenosis neurogenic claudication and ligamentum flavum hypertrophy with failure to respond to aggressive conservative measures including PT, oral and topical analgesics, opioid and nonopioid analgesics, rest, time and activity/behavioral modification over the past 1-2 years who presents for minimally invasive decompression of the bilateral L3-4, L4-5 levels under fluoroscopic guidance with possible epidurogram. Review of Systems Review of Systems: Patient denies any new infectious, allergic, cardiopulmonary, neurologic or constitutional symptoms or changes in activity tolerance or exercise capacity including new or progressive SOB/CARRANZA, peripheral edema, productive cough, dysuria, nausea/vomiting, diarrhea, weight change, fevers/chills/night sweats, new or progressive neurologic deficit, cognitive or mood changes since last seen, except as documented in the HPI. All systems reviewed & are unremarkable except as noted in HPI and below PMFSH Past Medical History Medical History Lower abdominal pain Montgomery esophagus Increased PTH level Gout Chronic kidney disease, stage IV (severe) Diastolic dysfunction Obstructive sleep apnea on CPAP Gastroesophageal reflux disease Non-insulin dependent type 2 diabetes mellitus Anemia Screening for breast cancer Generalized osteoarthritis of multiple sites Iron deficiency anemia Psoriasis Kidney disease Wears glasses Claustrophobia Degenerative arthritis of left knee Chronic neck pain MRI of cervical spine demonstrated [id number] cervical spondylosis C5 through C7, left foraminal narrowing and moderate right foraminal narrowing C5-C6, spinal stenosis with minimal flattening along the ventral cord C5 through C7. Morbid obesity Incontinence Asthma Hypercholesterolemia Hypertension Surgical History Surgical History History of esophageal dilatation History of bilateral cataract extraction History of colonoscopy History of cholecystectomy Status post cystoscopy with ureteral stent placement History of lithotripsy History of appendectomy History of total abdominal hysterectomy and bilateral salpingo-oophorectomy due to dysfunctional uterine bleeding History of bilateral tubal ligation Family History Family History Grandparent Acute myocardial infarction Family history of malignant neoplasm Carcinoma of colon Mother Family history of liver disease Mother who in her late 50s of cirrhosis related to hepatitis C Diabetes mellitus Father Leukemia father who in his 60s of leukemia. Heart disease Sibling Heart disease Social History Social History Social History: She lives with a roommate in [place]. 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 She then went on disability when she had a nervous breakdown. She has 3 children who are all healthy. She is a former smoker and smoked at least 2 packs of cigarettes per day from the age of 17 to age 57. She rarely drinks alcohol and only in moderation. Surrogate decision maker: Aarti Gupta (daughter). Code status: Full code. Smoking packs per day: 2 Smoking cigarettes per day: 40.0 Years smoked: 40 Smoking pack-years: 80.00 Smoking status: Former smoker Tobacco type: cigarettes Smoking end date: 07/18/06 Alcohol intake: never Alcohol use details: 1 per month Substance use: never Substance use type: does not use Do You Feel Safe in your Home?: Yes Lack of Transportation: No Lack of Food: Never True Current Housing: I Have Housing Concerned About Future Housing: No Difficulty Paying Gas/Electric Bills: No Difficulty Paying for Meds: No Currently Unemployed: No Education: High School Diploma/GED Difficulty w/ Childcare or Family Care: No Living arrangements: with roommate(s) Occupation/Education: retired Gender identity (if verbalized by the patient): Female Spiritual care concerns: No Meds Home Medications and Allergies Home Medications Medication Instructions Recorded Confirmed Type allopurinol 300 mg tablet 300 mg PO DAILY 10/27/21 11/27/24 History mecobalamin (vitamin B12) 10,000 10,000 mcg subcut MONTHLY 08/24/23 11/27/24 History mcg solution for injection amlodipine 5 mg tablet 5 mg PO DAILY #90 tabs 11/09/23 11/27/24 Rx blood sugar diagnostic (Accu-Chek #100 strips 11/28/23 11/27/24 Rx Iwona Plus test strips) blood sugar diagnostic #100 ea 11/29/23 11/27/24 Rx omega 0-ims-tuj-fish oil 1,000 mg 3 cap PO DAILY 02/16/24 11/27/24 History (120 mg-180 mg) capsule (Fish Oil) betamethasone dipropionate 0.05 % 1 applic topical BID PRN rash #45 02/23/24 11/27/24 Rx topical cream grams blood sugar diagnostic (Accu-Chek #100 ea 02/23/24 11/27/24 Rx Iwona Plus test strips) blood-glucose meter (Blood Glucose #1 ea 02/23/24 11/27/24 Rx Monitoring kit) lancets (Accu-Chek Softclix #100 ea 02/23/24 11/27/24 Rx Lancets) albuterol sulfate 90 mcg/actuation 1 - 2 inh inhalation Q4-6H PRN 06/07/24 11/27/24 Rx aerosol inhaler shortness of breath or wheezing #8.5 grams baclofen 10 mg tablet 10 mg PO BID #60 tabs 08/27/24 11/27/24 Rx pantoprazole 40 mg tablet,delayed See Rx Instructions .Route 10/29/24 11/30/24 Rx release .COMPLEX #90 tabs semaglutide 1 mg/dose (4 mg/3 mL) See Rx Instructions .Route 10/29/24 11/30/24 Rx subcutaneous pen injector (Ozempic) .COMPLEX #9 mL hydrocodone 5 mg-acetaminophen 325 1 tablet PO Q12H PRN pain #60 tabs 11/09/24 11/30/24 Rx mg tablet Allergies Allergy/AdvReac Type Severity Reaction Status Date / Time tramadol Allergy Severe Hives Verified 12/04/24 13:00 atorvastatin AdvReac Severe Nausea and Verified 12/04/24 13:00 Vomiting pravastatin AdvReac Intermediate Nausea and Verified 12/04/24 13:00 Vomiting budesonide AdvReac Mild Muscle Verified 12/04/24 13:00 Spasms formoterol AdvReac Mild Muscle Verified 12/04/24 13:00 Spasms Vital Signs Vital Signs - 24 hr 12/04/24 13:01 Temperature 99.4 F Pulse Rate 89 Blood Pressure 149/62 H Pulse Oximetry 93 Oxygen Delivery Room Air Exam Narrative: The patient's physical exam is essentially unchanged from prior examination on 10/01/2024. Specifically, patient demonstrates normal lung capacity, tidal volume and respiratory rate without wheezes, crackles, rales or rubs. Heart rate and rhythm are regular without murmurs, gallops or rubs. No JVD. Pulses 2+ globally without increasing peripheral edema. AAOx3 with no evidence of confusion, intoxication or altered mental state, NC/AT without acute distress or altered consciousness. Speech, cognition, mood, insight and judgment at baseline and within normal limits. Assessment and Plan Assessment and plan (1) Spinal stenosis, lumbar region with neurogenic claudication: Code(s): M48.062 - Spinal stenosis, lumbar region with neurogenic claudication Status: Acute Assessment and Plan: Proceed as planned with minimally invasive decompression of the bilateral L3-4, L4-5 levels under fluoroscopic guidance with possible epidurogram. (2) Chronic pain: Code(s): G89.29 - Other chronic pain Status: Acute
--- NOTE | 2024-12-04 13:10 | WPDHPUPDATE1 ---
History and Physical Update Update Date/Time: 12/04/24 13:10 History and Physical has been reviewed, including an updated exam of the patient. There are NO changes in the patient's condition. Risks, benefits, and alternatives have been discussed and questions answered. Patient agrees to proceed with procedure.
--- NOTE | 2024-12-04 13:20 | P.OP_ITS ---
Procedure Note - Detailed Date of Procedure 12/04/24 Pre-op Diagnosis Spinal stenosis lumbar region, neurogenic claudica Post-op Diagnosis Same Procedure Performed Bilateral Minimally Invasive Lumbar Decompression (MILD) at L3-4, L4-5 under Fluoroscopic Guidance. Surgeon Darrell Aquino MD Machine Tool Rebuilder None Anesthesia Other ([Moderate IV sedation/MAC] with local anesthetic infiltration in the prone position) Description of Procedure INFORMED CONSENT: Risks, benefits, and alternatives to the procedure were discussed in detail with the patient who expressed explicit understanding and consent to proceed. Risks discussed with the patient included but were not limited to risk of serious local or systemic infection, bleeding/bruising, epidural hematoma, dural puncture or tear resulting in CSF leak and acute or chronic post-dural puncture headache, scarring/deformity, immediate or delayed allergic reaction, decreased mobility, failure to treat pain, inadvertent neurologic injury resulting in increased pain, weakness/paralysis or numbness, inadvertent organ injury, need for additional surgery, allergic reaction, heart attack, stroke, seizure, coma, . Anesthetic risks were also briefly discussed by myself and the janitor and cleaner. The patient expressed understanding and consent to proceed, agreeing that potential benefits outweigh risk of harm. All materials required for the procedure were immediately available prior to procedure start. Site and side were confirmed with the patient, compared carefully to the patient chart and consent, and marked prior to transport to the operating room. Appropriate time out procedure was performed per protocol prior to procedure start. PROCEDURE IN DETAIL: The patient was brought to the operative suite and placed in the supine position. Appropriate ASA standard monitors were attached. General endotracheal anesthesia was initiated without difficulty or event. Eyes were protected. Patient was transitioned to the prone position. Pressure points were padded with joints in neutral position. When appropriate, breasts and genitals were evaluated and protected. Eyes were checked and were free from undue pressure. Skin overlying the procedure site was marked with sterile marker. Surgical area was prepared in a typical sterile fashion with ChloraPrep and allowed to dry for at least 3 minutes prior to sterilely draping the surgical site. The lumbar spine was identified in the AP fluoroscopic view with slight cephalad tilt perfectly aligning the endplates at the targeted levels with spinous processes bisecting the transpedicular plane. After identifying the intended incision site approximately 1.5 levels inferior to the level of interest, the area was anesthetized by infiltration with no more than 10ml of a 1:1 admixture of 0.5% PF bupivacaine with epinephrine and 2% PF lidocaine with epinepherine via a 27- gauge needle after negative aspiration. A 22-gauge spinal needle was used to provide additional and adequate local anesthesia to the level of the interspinous ligament, ligamentum flavum and the periosteum of the lamina at the intended treatment levels. In the AP view, a #11 scalpel blade was used to create a single stab incision at the intended incision site on the targeted side. The Vertos MILD kit was opened and the included cannula and trocar assembly was advanced through the incision to contact the midportion of the right lamina just adjacent to the spinous process at L5. Once seated, the lateral view was used to gauge depth demonstrating the most anterior tip of the trocar posterior to the epidural space at all times. The distribution associate-provided cannula stabilizer was placed over the trocar flush to the patient's lumbar flank. Cannula obturator with handle was removed. Included depth guide was then attached to the insertion port on the cannula and set to an intitial depth of 15 mm. The bone rongeur was advanced to the depth of the lumbar lamina at the targeted level. Depth gauge was then adjusted allowing rongeur tip to advance in the contralateral oblique view to the anterior border of the superior and inferior lamina at the respective intervertebral foramen. Multiple passes of the rongeur were used in the contralateral oblique view to remove single small portions of ligament and bone in a 360-degree distribution, approximately 3-5 passes on each lamina, until appropriate access to the superior and inferior attachments of the ligamentum flavum was created at the surgical level right L4-5. Each individual portion of bone removed was extracted, collected and discarded. Rongeur was removed and replaced with a tissue sculpter which was deployed from inferior to superior in the contralateral oblique view to delaminate the ligamentum flavum at the intended level with serial groupings of three passes each, 6-9 total per side treated. Tissue extracted was discarded. At no point did the rongeur or tissue sculpter violate the anterior border of the ligament as evidenced by intact interface at the ligament/epidural border . The same procedure was repeated in the exact same fashion, utilizing the initial stab incision, to effectively debulk the ligamentum flavum and decompress the central spinal canal on the right at L3-4, with similar results and no evidence of complication. The same exact procedure was then repeated in the exact same fashion, utilizing a new stab incision on the contralateral side, to effectively debulk the ligamentum flavum and decompress the central spinal canal on the left at L3-4, L4-5. Bone and tissue sculpters were withdrawn, obturator replaced and trocar removed in the lateral view, entirely and without difficulty. Hemostasis was obtained and confirmed. Benzoin was placed around the incision site(s) and Steri-Strips were placed in a janie-crossing fashion across the wound(s), which were then covered with Telfa dressing and Tegaderm. The patient was converted to the supine position and transported to the recovery area having tolerated the procedure well with no evidence of complication. The patient was instructed to minimize weightbearing activity, including ambulation, for 48 hours, and to avoid bending, twisting at the waist, overhead work, reaching and lifting, pushing or pulling greater than 5-10 lbs for 48 hours with subsequent return to normal activity as tolerated. The patient is to maintain current dressing for 48 hours, then can remove the original dressing, leaving steri-strips in place until they come off on their own or are removed by their provider. Once removing the outer bandage, the patient will cover the incision with clean gauze and paper tape as needed, changing daily or when soiled. The patient understands they should avoid soaking or submerging the incision for 1 week and can resume showers after 48 hours. Instructions were provided to the patient in both verbal and written form, which the patient obtained, reviewed and signed prior to discharge. The patient was instructed to watch for signs of infection including fevers, chills, night sweats, severe headache, neck stiffness, new neurologic deficit, bowel or bladder changes, increased pain, discharge, bleeding, swelling, opening of or unusual warmth at the incision site. They are to call our office or report directly to the Emergency Department immediately should there be any signs/symptoms of complications such as the above or any other urgent/emergent changes in their condition. COMMENTS: None. COMPLICATIONS: None. DRAINS/PACKING: None. SPECIMEN: None. ESTIMATED BLOOD LOSS: 10 mL. IV FLUIDS: On chart. CONTRAST WASTED: 0 ml of Isovue 300M. Pathology None sent Complications No immediate complications Condition Stable Disposition PACU [facility] Billing Surgery - Charge Forward: Surgery Billing
[2024-12-04] MEDS: ceFAZolin SODIUM 1 GM VIAL 2 GM IV PUSH (14:05)
[2024-12-04] MEDS: LIDOCAINE 1% LOCAL INJ 10 ML VIAL INFILTRATE (14:11)
[2024-12-04] MEDS: BUPIVACAINE/EPINEPHRINE 0.5% 30 ML VIAL 10 ML INFILTRATE (14:11)
[2024-12-04] MEDS: fentaNYL CITRATE INJ (*CRX) 100 MCG/2 ML VIAL 25 MCG IV PUSH ×3 (15:09→15:27)
== END 2024-12-04 16:45 | disposition home or self-care (01) ==
PROVIDERS: PCP Nurse Practitioner Adult Health; Visit Provider Anesthesiology Pain Medicine
PROC: (CPT 0275T; principal; 2024-12-04 13:30)
DX: M48.062 Spinal stenosis, lumbar region with neurogenic claudication (principal); G89.29 Other chronic pain; I12.9 Hypertensive chronic kidney disease with stage 1 through stage 4 chronic kidney disease, or unspecified chronic kidney disease; E11.22 Type 2 diabetes mellitus with diabetic chronic kidney disease; N18.4 Chronic kidney disease, stage 4 (severe); Z87.891 Personal history of nicotine dependence; Z00.6 Encounter for examination for normal comparison and control in clinical research program
CPT/HCPCS: 0275T; 82948; C1889; J0690; J1100; J2003; J2405; J2704; J3010; J7120

== ENCOUNTER 2024-12-24 12:25 | Outpatient (CLI) | payer MEDICARE, MEDICAID, SELFPAY ==
--- OUTSIDE RECORDS SUMMARY | 2024-12-24 13:43 | XMS_ITS | Clinical Summary ---
Author Organization [facility] Address [address] [place] [address] Care Team Providers Care Electronic Coils Supervisor Name Role Phone Angel Cottrell DO Primary Care Provider [phone] Allergies Active Allergy Reactions Criticality Noted Date [...] mouth daily Monthly infusion Active vit D3-vit Q-wbspnoisz-bjs s [phone] xkyx-gah-qf-mg tablet Take by mouth Active ergocalciferol (VITAMIN [...] - continue medication and follow up with Material Damage Appraiser. 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
--- OUTSIDE RECORDS SUMMARY | 2024-12-24 13:43 | XMS_ITS | Clinical Summary ---
Author Organization [facility] Address [address] [place] [id number] Phone Care Team Providers Care Sonographer Name Role Phone Wiley Causey MD Primary Care Provider [phone] Allergies Active Allergy Reactions Criticality Noted Date [...] - continue medication and follow up with Web Content Director. Obstructive sleep apnea syndrome 03/20/2020 Type [...] 3:49 PM CDT Height 157.5 cm (5' 2) 02/24/2022 3:49 PM CDT Body Mass Index 37.13 02/24/2022 3:49 PM CDT Plan of Treatment Health Maintenance Due Date Last Done Comments Pneumococcal PPSV23/PCV13 65 + Years / Low and Medium Risk (1 of 4 - PCV) 2002 Influenza Vaccine (Season Ended) [address] [place] [address] MEDICARE ADVANTAGE MEDICAID - [place] Care Teams Sonographer Relationship Specialty Start Date End Date Wiley Causey MD PCP - General Family Medicine 10/05/21
--- OUTSIDE RECORDS SUMMARY | 2024-12-24 13:43 | XMS_ITS | Referral Summary ---
Author Organization [facility] Address [address] [place] [address] Care Team Providers Care Field Reimbursement Manager Name Role Phone Angel Cottrell DO Primary Care Provider [phone] Allergies Active Allergy Reactions Criticality Noted Date [...] mouth daily Monthly infusion Active vit D3-vit Y-pcicjyrzy-phj s [phone] cyit-ell-mf-mg tablet Take by mouth Active ergocalciferol (VITAMIN [...] - continue medication and follow up with Contact Lens Blocker And Cutter. 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
--- OUTSIDE RECORDS SUMMARY | 2024-12-24 13:43 | XMS_ITS | Clinical Summary ---
Author Organization [facility] Address [address] [place] [address] Care Team Providers Care Career Services Coordinator Name Role Phone Wiley Causey MD Primary Care Provider [phone] Allergies Active Allergy Reactions Criticality Noted Date Comments Atorvastatin Hives High 12/03/2020 Budesonide-Formoterol Muscle Pain Medium 11/26/2020 Gbrywwf-Vhq-Ilz Reductase Inhibitors Other (See Comments) 04/28/2021 Tramadol [...] mg by mouth. Active Vit D3 & J-Qwqolsuqq-Rv ps [phone] olyj-vfl-ax-mg Tablet Take by mouth. Activ e omeprazole [...] Encounters Date Type Department Care Team Description 12/18/2024 External Device Data [facility] ABSTRACTION Provider, Abstract 10/29/2024 [facility] [address] [place] [address] Gabo Jiang MD Other dietary vitamin [...] Comments Blood Pressure 178/92 06/27/2024 10:20 AM GROUP EXERCISE INSTRUCTOR Pulse 94 06/27/2024 10:17 AM GROUP EXERCISE INSTRUCTOR Temperature 36.7 C (98 F) 06/27/2024 10:17 AM GROUP EXERCISE INSTRUCTOR Respiratory Rate 17 06/27/2024 10:17 AM GROUP EXERCISE INSTRUCTOR Oxygen Saturation 97% 06/27/2024 10:17 AM GROUP EXERCISE INSTRUCTOR Inhaled Oxygen Concentration - - Weight 93.3 kg (205 lb 9.6 oz) 06/27/2024 10:17 AM GROUP EXERCISE INSTRUCTOR Height 157.5 cm (5' 2) 04/20/2022 2:54 PM CDT Body Mass Index 37.6 04/20/2022 2:54 PM CDT Plan of Treatment Upcoming Encounters Date Type Department Care Team (Late st Contact Info) Description 12/26/2024 1:00 PM CDT Office Visit [facility] Oncology and Hematology [facility] [address] [facility] [address] [place] [address] Gabo Jiang MD [address] [facility] [address] [place] [address] Health Maintenance Due Date Last [...] VACCINE (#1) 2024 Insurance HUMANA [employer] [facility] MEDICAID [place] Care Teams Career Services Coordinator Relationship Specialty Start Date End Date Wiley Causey MD PCP - General Family Practice 08/04/21
--- OUTSIDE RECORDS SUMMARY | 2024-12-24 13:43 | XMS_ITS | Clinical Summary ---
Author Organization [facility] Address [address] [address] Care Team Providers Care Production Line Welder Name Role Phone Wiley Causey MD Primary Care Provider [phone] Allergies Active Allergy Reactions Criticality Noted Date [...] Comments Blood Pressure 132/62 09/15/2021 2:23 PM AIR CARRIER MAINTENANCE INSPECTOR Pulse 93 06/16/2021 1:49 PM AIR CARRIER MAINTENANCE INSPECTOR Temperature 36.4 C (97.6 F) 09/15/2021 2:23 PM AIR CARRIER MAINTENANCE INSPECTOR Respiratory Rate 18 09/15/2021 2:23 PM AIR CARRIER MAINTENANCE INSPECTOR Oxygen Saturation 98% 09/15/2021 2:23 PM AIR CARRIER MAINTENANCE INSPECTOR Inhaled Oxygen Concentration - - Weight 101 kg (223 lb) 09/15/2021 2:23 PM AIR CARRIER MAINTENANCE INSPECTOR Height 157.5 cm (5' 2) 09/15/2021 2:23 PM AIR CARRIER MAINTENANCE INSPECTOR Body Mass Index 40.79 09/15/2021 2:23 PM AIR CARRIER MAINTENANCE INSPECTOR Plan of Treatment Health Maintenance Due Date [...] Comments HEMOGLOBIN A1C Routine 07/01/2020 11:00 AM AIR CARRIER MAINTENANCE INSPECTOR from Last 3 Months or Most Recently Relevant to Health Maintenance Results * (ABNORMAL) Hemoglobin A1c (07/01/2020 11:00 AM AIR CARRIER MAINTENANCE INSPECTOR) Hemoglobin A1C 6.3(H) <5.7 % of total [...] diabetes for children. 07/01/2020 11:0 0 AM AIR CARRIER MAINTENANCE INSPECTOR us Hay Jerez DO LAB BLOOD ORDERABLES Final R esult [facility] from Last 3 Months or Most Recently Relevant to Health Maintenance Insurance [employer] Medicare Medicaid [place] Care Teams Production Line Welder Relationship Specialty Start Date End Date Wiley Causey MD [address] [place] [address] PCP - General Family Medicine 06/17/21
--- OUTSIDE RECORDS SUMMARY | 2024-12-24 13:43 | XMS_ITS | Clinical Summary ---
Author Organization [facility] Address [address] [address] Phone Care Team Providers Care Mill Operator Head Name Role Phone Wiley Causey MD Primary Care Provider [phone] Allergies Active Allergy Reactions Criticality Noted Date [...] on file Legal Sex Female 2:49 PM PEDORTHIST Gender Identity Not on file Sexual Orientation Not on file Last Filed Vital Signs Vital Sign Reading Time Taken Comments Blood Pressure 171/96 05/22/2019 12:50 AM PEDORTHIST Pulse 93 05/22/2019 12:50 AM PEDORTHIST Temperature 37.1 C (98.7 F) 05/21/2019 8:14 PM PEDORTHIST Respiratory Rate 30 05/22/2019 12:50 AM PEDORTHIST Oxygen Saturation 90% 05/22/2019 12:50 AM PEDORTHIST Inhaled Oxygen Concentration - - Weight 104.3 kg (230 lb) 05/21/2019 8:14 PM PEDORTHIST Height 157.5 cm (5' 2) 05/21/2019 8:14 PM PEDORTHIST Body Mass Index 42.07 05/21/2019 8:14 PM PEDORTHIST Plan of Treatment Health Maintenance Due Date Last Done Comments Hepatitis C Virus (HCV) Screening 1950 TdaP Immunization 1950 Cologuard 2002 Immunochemical Fecal Occult Blood 2002 Pneumococcal Immunization (5 0+ years) (2 of 2 - PPSV23) 07/18/2018 07/18/2017, 04/05/2017 Colonoscopy 09/27/2023 09/26/2018 Colorectal Cancer Screening 09/27/2023 SARS-COV-2 Immunization ( - 2023-25 season) 2024 Influenza Immunization (Seas on Ended) 2025 Respiratory Syncytial Virus (RSV) Immunization (Adult) (1 - 1-dose 75+ series) 2027 Pneumococcal Immunization Combined Discontinued 07/18/2017, 04/05/2017 Zoster Immunization Completed 07/02/2022, 04/30/2022 Hepatitis B Immunization Aged Out No longer eligible based on patient's age to complete this topic Human Papillomavirus (HPV) Immunization Aged Out No longer eligible based on patient's age to complete this topic Meningococcal Immunization (ACWY) Aged Out No longer eligible based on patient's age to complete this topic Rotavirus Immunization Aged Out No lo nger eligible based on patient's age to complete this topic Insurance MEDICARE C [employer] [place] Care Teams Mill Operator Head Relationship Specialty Start Date End Date Wiley Causey MD [address] [place] [address] PCP - General Family Medicine 06/28/22
[2024-12-24 20:10] LABS: Anion Gap 7 mmol/L (4-12); Blood Urea Nitrogen 14 mg/dL (7-17); Calcium 9.6 mg/dL (8.4-10.2); Carbon Dioxide 24 mmol/L (22-30); Chloride 110 mmol/L (98-107); Estimated Glomerular Filt Rate 35; Glucose 155 mg/dL (65-110); Potassium 4.5 mmol/L (3.4-5.0); Sodium 141 mmol/L (137-145)
[2024-12-24 20:28] LABS: Hematocrit 35.9 % (37.0-47.0); Hemoglobin 10.9 g/dL (12.0-15.0); Mean Corpuscular HGB Conc 30.4 g/dl (32-36); Mean Corpuscular Hemoglobin 27.7 pg (26-34); Mean Corpuscular Volume 91.1 fl (80-100); Mean Platelet Volume 9.5 fl (7.4-10.4); Platelet Count Result 212 k/mm3 (150-375); Red Blood Count 3.94 M/mm3 (4.2-5.4); Red Cell Distribution Width 14.6 % (11.5-14.5); White Blood Count 9.4 K/mm3 (4.5-10.0)
[2024-12-24 20:53] LABS: Iron 50 ug/dL (37-170)
[2024-12-24 21:03] LABS: Percent Iron Saturation 15 % (20-50)
[2024-12-24 21:17] LABS: Folic Acid 7.4 ng/mL (2.76->20)
== END 2024-12-24 12:26 | disposition home or self-care (01) ==
PROVIDERS: PCP Nurse Practitioner Adult Health; Visit Provider Internal Medicine Hematology & Oncology
DX: D64.9 Anemia, unspecified (principal)
CPT/HCPCS: 36415; 80048; 82607; 82728; 82746; 83540; 83550; 85027

== ENCOUNTER 2025-02-06 12:30 | Outpatient (RCR) | payer MEDICARE, MEDICAID, SELFPAY ==
--- NOTE | 2024-12-26 09:44 | OPREHPOC ---
Outpatient Therapy Plan of Care This is a Multidisciplinary Plan of Care that may contain components documented by all disciplines (PT, OT, and ST.) PT Problem 1 PT Problem #1 Knowledge Deficit PT Goal 1 Goal / Goal Update Patient to demonstrate independence with HEP for improved self-reliance of symptom management. Target Visit 5 PT Problem 2 PT Problem #2 Impaired Strength PT Goal 1 Goal / Goal Update 1. Patient to perform 5xSTS from 20 sec to 15 sec to demonstrate an increase in B LE functional strength. Target Visit 10 PT Problem 3 PT Problem #3 Pain PT Goal 1 Goal / Goal Update 1. Patient to report an improvement in radiating symptoms by 50% to increase ability to perform ADLs. 2. Patient to report improved standing tolerance of >5 minutes with pain no greater than 3/10 for increased ADL endurance. Target Visit 10 PT Problem 4 PT Problem #4 Impaired Endurance PT Goal 1 Goal / Goal Update Patient to improve distance ambulated during 2MWT from 205 feet to 250 feet to demonstrate an improvement in ADL endurance. Target Visit 10
--- NOTE | 2024-12-26 09:44 | PTOPEVAL1 ---
Assessment and note entered by Heidi Horne PT Evaluation Information Assessment Status Evaluation Diagnosis spinal stenosis, spondylosis without myelopathy ICD-10 Condition Codes (PT) Pain in low back M54.50 Onset 12/04/24 Subjective Information Pt presents s/p lumbar decompression L3-4, L4-5 on 12/04/24. Pt reports no complications with surgery . Pt walked with a rollator prior to surgery. Pt is currently using her rollator. Pt also uses this device due to chronic L knee pain. Pt doing stairs one at a time, has one step to enter her apartment. Pt needs to get back to ADLS and IADLS. Pt reports pain worse in the morning from stiffness, notes it gets better throughout the day . She reports increasing pain with prolonged walking, standing. She reports the ability to perform ADLs but she has to be holding onto something. Pt is currently sleeping in bed. Pt is having difficulty with lower body dressing. Pt reports taking hydrocodone for the pain prior to and post surgery, she has not taken it for 2 weeks and notices an increase in her baseline discomfort. Reported Pain Level Pain Score 1,2: Self Report Assessment PT Clinical Summary Pt is a 74 year old female who presents to physical therapy s/p lumbar decompression surgery on 12/04/24. Pt demonstrates B LE weakness, post-op pain, decreased mobility, abnormal posture, gait deficit, and decreased endurance that limit their ability to perform ADLs. Pt will benefit from skilled physical therapy to address the above listed deficits and return to PLOF. HEP instructed and written handout provided, EX tolerated well with no adverse effects to note post-session. Pt was educated on importance of adherence to HEP. Pt was also educated on anatomy, prognosis, home modalities, and PT POC. Plan of Care Interventions Electrical Stimulation,Gait Training,Hot Pack/Cold Pack,Manual Therapy,Neuro Re-education, Therapeutic Activities,Therapeutic Exercise PT Services Indicated Yes Treatment Frequency and 2x/wk for 10 visits Duration These treatments will address the objective and functional deficits as defined above. The patient will be advanced safely and appropriately in order for the patient to progress towards his/her prior level of function. Additional exercises will be introduced and as well as a comprehensive home exercise program upon discharge, if needed, ?to ensure carryover of functional gains achieved in the clinic. This treatment plan has been reviewed and agreement upon by the patient.
--- NOTE | 2025-01-31 14:08 | PCPTNOTE ---
No call no show, reason unknown. AK[place]ine
--- NOTE | 2025-02-06 13:05 | PTOPDC ---
Assessment and note entered by Heidi Horne, PT Evaluation Information Assessment Status Discharge Diagnosis spinal stenosis, spondylosis without myelopathy ICD-10 Condition Codes (PT) Pain in low back M54.50 Onset 12/04/24 Subjective Information Pt continues to report difficulty standing for longer than 5 minutes due to pain starting in the back of her legs. She thinks the intensity of her pain is getting better. She thinks the radiating pain is better by about 75% or greater. She believes her general mobility in the house and in the community has gotten better. She struggles with standing in the shower, has a shower chair but does not use it all the time due to lack of room. She is able to walk through the grocery store hanging on/leaning on the cart and taking standing rest breaks as needed. She was [facility] to [facility] on 01/21[facility]25 for colitis with a 3 day stay. She is still feeling weak overall since they didn't let her do much while she was there. She has no issues with her HEP and notices herself doing them more often than required. Reported Pain Level Pain Score 2,2: Self Report Assessment PT Clinical Summary Patient's condition has improved overall as evidenced by advancements in symptoms, mobility, strength, and overall functional use of the extremity. Pt has met all therapy goals and is pleased with progress made in PT. Patient to DC from PT this date and continue with updated HEP as instructed. Pt to contact PT or PCP if questions or concerns arise. Plan of Care PT Services Indicated Yes
== END 2025-02-06 14:21 | disposition home or self-care (01) ==
LOC: ANHPT 12:30
PROVIDERS: PCP Nurse Practitioner Adult Health; Visit Provider Anesthesiology Pain Medicine
DX: M48.062 Spinal stenosis, lumbar region with neurogenic claudication (principal); M54.9 Dorsalgia, unspecified; M47.817 Spondylosis without myelopathy or radiculopathy, lumbosacral region
CPT/HCPCS: 97110; 97161; 97530

== ENCOUNTER 2025-02-28 06:43 | Outpatient (CLI) | payer MEDICARE, MEDICAID, SELFPAY ==
--- NOTE | ~2025-02-28 | XR_ITS ---
XR abdomen/kub 1V 02/28/2025 07:24 INDICATION: Intestinal malabsorption TECHNIQUE: KUB COMPARISON: 09/18/2021 and 12/18/2021 FINDINGS: Bowel gas pattern is normal. There is no evidence of free air, mass, organomegaly, ascites or obstruction. No abnormal calculi are seen. The bones appear intact. There are calcified granulo mas of the spleen. There is a cholecystectomy clip. There are surgical clips in the left pelvis. IMPRESSION: 1: No acute abdominal abnormality identified. Reviewed, dictated and finalized at location A.
--- OUTSIDE RECORDS SUMMARY | 2025-02-28 06:48 | XMS_ITS | Clinical Summary ---
Author Organization [facility] Address [address] [address] Phone Care Team Providers Care Family Centered Specialist Name Role Phone Wiley Causey MD Primary Care Provider [phone] Allergies Active Allergy Reactions Criticality Noted Date Comments Other Rash 09/15/2018 2 Cholesterol medications caused a rash. Patient does not know the name of either. Budesonide-Formotero l Fumarate Other (see Comments) 09/15/2018 Muscle spasms Tramadol Hives 09/15/2018 Medications metFORMIN (GLUCOPHAGE) 1000 MG Tablet Take 1,000 mg by mouth daily. Active glimepiride (AMARYL) 1 MG Tablet Take 1 mg by mouth every morning. Active losartan-hydroc hlorothiazide (HYZAAR) 50-12.5 MG Tablet Take 1 Tablet by mouth daily. 5 Active pantoprazole (PROTONIX) 40 MG Tablet Delayed Response Take 40 mg by mouth every morning. 5 Active allopurinol (ZYLOPRIM) 300 MG Tablet Take 300 mg by mouth daily. Active Ozempic, 1 MG/DOSE, 4 MG/3ML Solution Pen-injector 1 mg by Subcutaneous route once a week. Takes on Sundays Active HYDROcodone-mariah taminophen (NORCO) 5-325 MG TabletIndicatio ns:Colitis Take 1 Tablet by mouth every 4 hours as needed for Moderate or more severe pain. 12 Tablet 5 Active ondansetron (ZOFRAN-ODT) 4 MG TABLET DISPERSIBLE Take 1 Tablet by mouth every 6 hours as needed for Nausea - 1st line. 10 Tablet 5 Active levoFLOXacin (LEVAQUIN) 750 MG Tablet Take 1 Tablet by mouth every other day for 8 days. 4 Tablet 5 025 metroNIDAZOLE (FLAGYL) 500 MG Tablet Take 1 Tablet by mouth 3 times daily for 7 days. 21 Tablet 5 025 Active Problems Problem Noted Date Diagnosed Date Colitis 01/22/2025 Sepsis 01/22/2025 Adenomatous colon polyp 07/18/1977 Sleep apnea Overview (01/22/2025): Cpap machine Psoriasis Morbid obesity Kidney stones Hypertension Hypercholesterolemia GERD (gastroesophageal reflux disease) Diverticula, colon Diabetes Asthma Encounters Date Type Department Care Team Description 01/22/2025 11:23 AM CDT - 01/24/2025 1:10 PM CDT Hospital Encounter [facility] [address] [id number] Carlos Ross MD Patel, Satyen V, MD Smith, Lavada J, WATCH CRYSTAL MOLDER, CONSUMER ATTORNEY Gabe Adkins MD Colitis Discharge Disposition: Discharged to home or Selfcare 01/22/2025 Travel from Last 3 Months Family History Medical [...] 09/26/2006 Smokeless Tobacco: Never Tobacco Cessation:Counseling Given: Not Answered Comments:2006 Alcohol Use Standard Drinks/Week Comments No 0 (1 standard drink = 0.6 oz pur e alcohol) Social Connection and Isolation Panel Answer Date Recorded In a typical week, how many times do you talk on the phone with family, friends, or neighbors? Patient declined 01/22/2025 How often do you get togethe r with friends or relatives? Patient declined 01/22/2025 How often do you attend spiritism or druze serv ices? Patient declined 01/22/2025 Do you belong to any clubs o r organizations such as spiritism groups, unions, fraternal or athletic groups, or school groups? Patient declined 01/22/2025 How often do you attend meet ings of the clubs or organizations you belong to? Patient declined 01/22/2025 Are you , , di vorced, , never , or living with a partner? Patient declined 01/22/2025 AUDIT-C Answer Date Recorded Q1: How often do you have a drink containing alc ohol? Patient declined 01/22/2025 Q2: How many drinks containi ng alcohol do you have on a typical day when you are drinking? Patient declined 01/22/2025 Q3: How often do you have si x or more drinks on one occasion? Patient declined 01/22/2025 Overall Financial Resource Strain (CARDIA) Answe r Date Recorded How hard is it for you to pa y for the very basics like food, housing, medical care, and heating? Patient declined 01/22/2025 [facility] - Occupational Stress Questionnaire Answer Date Recorded Do you feel stress - tense, restless, nervous, or anxious, or unable to sleep at night because your mind is troubled all the time - these days? Patient declined 01/22/2025 Exercise Vital Sign Answer Date Recorde d On average, how many days pe r week do you engage in moderate to strenuous exercise (like a brisk walk)? Patient declined On average, how many minutes do you engage in exercise at this level? Patient declined 01/22/2025 Hunger Vital Sign Answer Date Recorded Within the past 12 months, y ou worried that your food would run out before you got the money to buy more. Patient declined Within the past 12 months, t he food you bought just didn't last and you didn't have money to get more. Patient declined 02/2025 PRAPARE - Transportation Answer Date Re corded In the past 12 months, has l ack of transportation kept you from medical appointments or from getting medications? Patient declined 01/22/2025 In the past 12 months, has l ack of transportation kept you from meetings, work, or from getting things needed for daily living? Patient declined 01/22/2025 Housing Stability Vital Sign Answer Jean Paul e Recorded In the last 12 months, was t here a time when you were not able to pay the mortgage or rent on time? Patient declined 01/23/20 25 In the past 12 months, how m any times have you moved where you were living? 1 01/22/2025 At any time in the past 12 m [facility], were you homeless or living in a group home (including now)? Patient declined 01/22/2025 [facility] Utilities Answer Date Recorded In the past 12 months has e [employer], gas, oil, or water [employer] threatened to shut off services in your home? Patient declined 01/22/2025 Comments No Sex and Gender Information Value Date Recorded Sex Assigned at Not on file Legal Sex Female 2:49 PM AUTHORIZER Gender Identity Not on file Sexual Orientation Not on file Last Filed Vital Signs Vital Sign Reading Time Taken Comments Blood Pressure 148/64 01/24/2025 12:00 PM CDT Pulse 91 01/24/2025 12:00 PM CDT Temperature 35.8 C (96.5 F) 01/24/2025 12:00 PM CDT Respiratory Rate 18 01/24/2025 12:00 PM CDT Oxygen Saturation 98% 01/24/2025 12:00 PM CDT Inhaled Oxygen Concentration - - Weight 95.7 kg (211 lb) 01/22/2025 3:00 PM CDT Height 157.5 cm (5' 2) 01/22/2025 3:00 PM CDT Body Mass Index 38.59 01/22/2025 3:00 PM CDT Plan of Treatment Health Maintenance Due Date Last Done Comments DEXA Bone Density 1952 Diabetes: Eye Exam 1952 Diabetes: Foot Exam 1950 Hepatitis C Virus (HCV) Screening 1950 Mammogram 1950 TdaP Immunization 1950 Cologuard 1997 Immunochemical Fecal Occult Blood 1997 Respiratory Syncytial Virus (RSV) Immunization (Adult) (1 - Risk 60-74 years 1-dose series) 2012 Pneumococcal Immunization (50+ years) (2 of 2 - PPSV23, PCV20, or PCV21) 09/12/2017 07/18/2017, 04/05/2017 Colonoscopy 09/27/2023 09/26/2018 Colorectal Cancer Screening 09/27/2023 SARS-COV-2 Immunization ( season) 2024 Influenza Immunization (#1) 2025 Diabetes: Hemoglobin A1c 07/27/2025 025, 01/23/2025, 07/01/2020, Additional history exists Diabetes: Nephropathy Screening 01/22/2026 01/22/2025, 05/21/2019 Pneumococcal Immunization Combined Discontinued 07/18/2017, 04/05/2017 Zoster Immunization Completed 07/02/2022, Hepatitis B Immunization Aged Out No longer [...] Date/Time Associated Diagnosis Comments POCT GLUCOSE Routine 01/24/2025 11:24 AM CDT POCT GLUCOSE Routine 01/24/2025 7:05 AM CDT CBC WITH AUTO DIFFERENTIAL Routine 01/24/2025 5:46 AM CDT HEMOGLOBIN A1C W/ ESTIMATED GLUCOSE Routine 01/24/2025 5:46 AM CDT COMPLETE BLOOD COUNT (CBC) WITH DIFF Routine 01/24/2025 5:46 AM CDT BASIC METABOLIC PANEL W/ CALCIUM TOTAL Routine 01/24/2025 5:46 AM CDT RHYTHM STRIP 01/24/2025 12:00 AM CDT RHYTHM STRIP 01/24/2025 12:00 AM CDT POCT GLUCOSE Routine 01/23/2025 9:06 PM CDT POCT GLUCOSE Routine 01/23/2025 4:57 PM CDT POCT GLUCOSE Routine 01/23/2025 11:37 AM CDT POCT GLUCOSE Routine 01/23/2025 8:15 AM CDT CBC WITH AUTO DIFFERENTIAL Routine 01/23/2025 6:27 AM CDT HEMOGLOBIN A1C W/ ESTIMATED GLUCOSE Routine 01/23/2025 6:27 AM CDT COMPLETE BLOOD COUNT (CBC) WITH DIFF Routine 01/23/2025 6:27 AM CDT BASIC METABOLIC PANEL W/ CALCIUM TOTAL Routine 01/23/2025 6:27 AM CDT RHYTHM STRIP 01/23/2025 12:00 AM CDT RHYTHM STRIP 01/23/2025 12:00 AM CDT RHYTHM STRIP 01/23/2025 12:00 AM CDT POCT GLUCOSE Routine 01/22/2025 9:26 PM CDT POCT GLUCOSE Routine 01/22/2025 4:15 PM CDT URINALYSIS REFLEX IF INDICATED BY ABNORMAL RESULTS STAT 01/22/2025 3:26 PM CDT LACTIC ACID (LACTATE) STAT 01/22/2025 3:10 PM CDT CRITICAL CARE Routine 01/22/2025 2:[address] ABDOMEN PELVIS W/O CONTRAST Stat with Interpretation 01/22/2025 1:26 PM CDT RSV,SARS-COV-2,INF LUENZA A&B BY PCR STAT 01/22/2025 12:42 PM CDT GOLD TOP TUBE STAT 01/22/2025 11:33 AM CDT BLUE TOP TUBE STAT 01/22/2025 11:33 AM CDT CBC WITH AUTO DIFFERENTIAL STAT 01/22/2025 11:33 AM CDT EXTRA TUBES STAT 01/22/2025 11:33 AM CDT LACTIC ACID (LACTATE) STAT 01/22/2025 11:33 AM CDT CMP (COMPREHENSIVE METABOLIC PANEL) STAT 01/22/2025 11:33 AM CDT COMPLETE BLOOD COUNT (CBC) WITH DIFF STAT 01/22/2025 11:33 AM CDT CULTURE, BLOOD STAT 01/22/2025 11:33 AM CDT CULTURE, BLOOD STAT 01/22/2025 11:33 AM CDT EKG 12 LEAD STAT 01/22/2025 11:25 AM CDT RHYTHM STRIP 01/22/2025 12:00 AM CDT RHYTHM STRIP 01/22/2025 12:00 AM CDT EKG SCAN 01/22/2025 12:00 AM CDT from Last 3 Months Results * (ABNORMAL) POCT GLUCOSE (01/24/2025 11:24 AM CDT) Only the most recent of8 resultswithin the time period is included. Pathologist [facility] GLUCOSE,BEDSID E POCT 184(H) 70 - 99 mg/dL 01/24/2025 11:40 AM CDT [facility] Blood 01/24/2025 11:2 4 AM CDT 01/24/2025 11:40 AM CDT us None Provider POINT OF CARE TESTING Final Resu lt [facility] [address] [place] [address] * (ABNORMAL) HEMOGLOBIN A1C W/ ESTIMATED GLUCOSE (01/24/2025 5:46 AM CDT) Only the most recent of2 resultswithin the time period is included. [facility] HGB-A1C 7.1(H) 4.0 - 6.0 % 01/24/2025 8:11 AM CDT [facility] Est Average Glucose 157.1 mg/dL 01/24/2025 8:11 AM CDT [facility] Blood Venipuncture / Unknown 01/24/2025 5:46 AM CDT 01/24/2025 7:09 AM CDT Narrative [facility] - 01/24/2025 8:11 AM CDT HEMOGLOBIN A1C: DIABETIC PATIENTS: WELL-CONTROLLED: 6.2 - 7.0 INTERMEDIATE WELL-CONTROLLED: 7.0 - 9.0 POORLY-CONTROLLED: >9.0 Specimens containing greater than 5% of Hemoglobin F may result in lower than expected % HbA1C results. us Stacey Masterson WATCH CRYSTAL MOLDER, CONSUMER ATTORNEY CHEMISTRY ORDERABLES Fi nal Result [facility] [address] [place] [address] * (ABNORMAL) CBC WITH AUTO DIFFERENTIAL (01/24/2025 5:46 AM CDT) Only the most recent of3 resultswithin the time period is included. WBC 6.12 4.00 - 12.00 10(3)/mcL 01/24/2025 7:19 AM CDT [facility] RBC 3.47(L) 3.80 - 5.30 10(6)/mcL 01/24/2025 7:19 AM CDT [facility] HEMOGLOBIN (HGB) 9.7(L) 12.0 - 15.8 g/dL 01/24/2025 7:19 AM CDT [facility] HEMATOCRIT (HCT) 30.6(L) 36.0 - 47.0 % 01/24/2025 7:19 AM CDT [facility] MCV 88.2 82.0 - 96.0 fL 01/24/2025 7:19 AM CDT [facility] MCH 28.0 26.0 - 34.0 pg 01/24/2025 7:19 AM CDT [facility] MCHC 31.7 31.0 - 36.0 g/dL 01/24/2025 7:19 AM CDT [facility] PLATELET COUNT 146 140 - 440 10(3)/mcL 01/24/2025 7:19 AM CDT [facility] RDW 14.9 11.8 - 15.5 % 01/24/2025 7:19 AM CDT [facility] MPV 9.4(L) 9.7 - 12.4 fL 01/24/2025 7:19 AM CDT [facility] NEUTROPHILS 63.3 47.0 - 73.0 % 01/24/2025 7:19 AM CDT [facility] LYMPHOCYTES 19.3 18.0 - 42.0 % 01/24/2025 7:19 AM CDT [facility] MONOCYTES 11.3 4.0 - 12.0 % 01/24/2025 7:19 AM CDT [facility] EOSINOPHILS 5.1(H) 0.0 - 5.0 % 01/24/2025 7:19 AM CDT [facility] BASOPHILS 0.3 0.0 - 1.0 % 01/24/2025 7:19 AM CDT [facility] IMMATURE GRANULOCYTE 0.7(H) 0.0 - 0.4 % 01/24/2025 7:19 AM CDT [facility] Comment:Immature Granulocyte s includes Metamyelocytes, Myelocytes, and Promyelocytes. ABSOLUTE NEUTROPHILS 3.88 1.60 - 7.70 10(3)/mcL 01/24/2025 7:19 AM CDT [facility] ABSOLUTE LYMPHOCYTES 1.18(L) 1.30 - 3.20 10(3)/mcL 01/24/2025 7:19 AM CDT [facility] ABSOLUTE MONOCYTES 0.69 0.20 - 1.00 10(3)/mcL 01/24/2025 7:19 AM CDT [facility] ABSOLUTE EOSINOPHIL 0.31 0.00 - 0.40 10(3)/mcL 01/24/2025 7:19 AM CDT [facility] ABSOLUTE BASOPHILS 0.02 0.00 - 0.10 10(3)/mcL 01/24/2025 7:19 AM CDT [facility] ABSOLUTE IMMATURE GRANULOCYTE 0.04(H) 0.00 - 0.03 10 (3) mcL. 01/24/2025 7:19 AM CDT [facility] NRBC PER 100 WBC 0 01/25/20 7:19 AM CDT [facility] Blood Venipuncture / Unknown 01/24/2025 5:46 AM CDT 01/24/2025 7:09 AM CDT us Stacey Masterson WATCH CRYSTAL MOLDER, CONSUMER ATTORNEY HEMATOLOGY ORDERABLES F inal Result [facility] [address] [place] [address] * (ABNORMAL) BASIC METABOLIC PANEL W/ CALCIUM TOTAL (01/24/2025 5:46 AM CDT) Only the most recent of2 resultswithin the time period is included. SODIUM 142 136 - 145 mmol/L 01/24/2025 7:40 AM CDT [facility] POTASSIUM 3.7 3.5 - 5.1 mmol/L 01/24/2025 7:40 AM CDT [facility] CHLORIDE 113(H) 98 - 107 mmol/L 01/24/2025 7:40 AM CDT [facility] CO2, VENOUS 22 22 - 30 mmol/L 01/24/2025 7:40 AM CDT [facility] ANION GAP 10.7 <18.0 mmol/L 01/24/2025 7:40 AM CDT [facility] GLUCOSE 139(H) 70 - 99 mg/dL 01/24/2025 7:40 AM CDT [facility] BUN 13 10 - 20 mg/dL 01/24/2025 7:40 AM CDT [facility] CREATININE, BLOOD 1.64(H) 0.60 - 1.00 mg/dL 01/24/2025 7:40 AM CDT [facility] BUN/CREATININE RATIO 8(L) 12 - 20 ratio 01/24/2025 7:40 AM CDT [facility] CALCIUM 7.8(L) 8.7 - 10.5 mg/dL 01/24/2025 7:40 AM CDT [facility] GFR, ESTIMATED 33(L) >=60 01/24/2025 7:40 AM CDT [facility] Comment: Creatinine Clearance is the preferred criteria for selecting drug dose adjustments in renally impaired patients. The GFR is provided as additional pertinent clinical information. GFR is reported in mL/min/1.73 sq m. Calculation based on the Chronic Kidney Disease Epidemiology Collaboration (CKD- EPI) equation refit without adjustment for race. GFR, EST. 37(L) >=60 025 7:40 AM CDT [facility] GFR, EST. NONAFRICAN 31(L) >=60 01/24/2025 7:40 AM CDT [facility] Blood Venipuncture / Unknown 01/24/2025 5:46 AM CDT 01/24/2025 7:09 AM CDT us Stacey Masterson WATCH CRYSTAL MOLDER, CONSUMER ATTORNEY CHEMISTRY ORDERABLES Fi nal Result Performing Organization Address City/[facility]/ZIP Co de Phone Number [facility] [address] [place] [address] * RHYTHM STRIP (01/24/2025 12:00 AM CDT) Only the most recent of7 resultswithin the time period is included. 01/24/2025 us Provider Scan IMG ECG ORDERABLES Final Result Performing Organization Address City/[facility]/ZIP Co de Phone Number RESULTING AGENCY * (ABNORMAL) URINALYSIS REFLEX IF INDICATED BY ABNORMAL RESULTS (01/22/2025 3:26 PM CDT) SPECIFIC GRAVITY 1.015 1.003 - 1.030 01/22/2025 3:53 PM CDT [facility] URINE PH 5.0 5.0 - 9.0 01/22/2025 3:53 PM CDT [facility] WBC ESTERASE Negative Negative 01/22/2025 3:53 PM CDT [facility] NITRITE Negative Negative 01/22/2025 3:53 PM CDT [facility] PROTEIN, RANDOM URINE 30 mg/dL(A) Negative 01/22/2025 3:53 PM CDT [facility] URINE GLUCOSE, QUAL 50 mg/dL(A) Negative 01/22/2025 3:53 PM CDT [facility] URINE KETONES Negative Negative 01/22/2025 3:53 PM CDT [facility] UROBILINOGEN Normal Normal mg/dL 01/22/2025 3:53 PM CDT [facility] URINE BLOOD Negative Negative dean/ul 01/22/2025 3:53 PM CDT [facility] URINALYSIS COLOR Yellow 01/23/20 3:53 PM CDT [facility] URINALYSIS CLARITY Slightly Cloudy 01/22/2025 3:53 PM CDT [facility] WBC (Urine) 0-5 Negative, 0-5 /hpf 01/22/2025 3:53 PM CDT [facility] URINE RBC'S 0-2 Negative, 0-2 /hpf 01/22/2025 3:53 PM CDT [facility] EPITHELIAL CELLS Moderate amount /lpf 01/22/2025 3:53 PM CDT [facility] BACTERIA, URINE Negative Negative /hpf 01/22/2025 3:53 PM CDT [facility] CASTS 1-5/LPF Finely Granular Casts(A) Negative, 0-2/lpf, 3-5/lpf, 6-10/lpf, 11-20/lpf, >20/lpf, Rare Hyaline, Few Hyaline, Moderate Hyaline, Many Hyaline, Rare Granular, Few Granular, Moderate Granular, Many Granular, Few WBC, Moderate WBC , Many WBC , Rare WBC, Rare RBC, Few RBC, Moder... /lpf 01/22/2025 3:53 PM CDT [facility] Urine URINE SPECIMEN / Unknown Non-Phlebotomy Collection / Unknown 01/22/2025 3:26 PM CDT 01/22/2025 3:32 PM CDT Carlos Ross MD URINE ORDERABLES Final Res ult Performing Organization Address [facility] Co de Phone Number [facility] [address] [place] [address] * LACTIC ACID (LACTATE) (01/22/2025 3:10 PM CDT) Only the most recent of2 resultswithin the time period is included. LACTIC ACID 1.5 0.7 - 2.0 mmol/L 01/22/2025 4:09 PM CDT [facility] Blood Venipuncture / Unknown 01/22/2025 3:10 PM CDT 01/22/2025 3:16 PM CDT Carlos Ross MD CHEMISTRY ORDERABLES Final Result Performing Organization Address City/[facility] Co de Phone Number [facility] [address] [place] [address] * Critical Care (01/22/2025 2:01 PM CDT) Narrative Carlos Ross MD - 01/22/2025 2:01 PM CDT Carlos Ross MD 01/22/2025 2:17 PM Critical Care Performed by: Carlos Ross MD Authorized by: Carlos Ross MD Critical care provider statement: Critical care time (minutes): 35 Critical care was necessary to treat or prevent imminent or life-threatening deterioration of the following conditions: Sepsis and renal failure Critical care was time spent personally by me on the following activities: Development of treatment plan with patient or surrogate, discussions with consultants, evaluation of patient's response to treatment, examination of patient, obtaining history from patient or surrogate, ordering and performing treatments and interventions, ordering and review of laboratory studies, ordering and review of radiographic studies, re-evaluation of patient's condition and review of old charts Care discussed with: admitting provider Carlos Ross MD PROCEDURE/MINOR SURGICAL O RDERABLES Final Result * CT ABDOMEN PELVIS W/O CONTRAST (01/22/2025 1:26 PM CDT) Anatomical Region Laterality Modality Abdomen N/A Computed Tomogra phy 01/22/2025 1:40 PM CDT Impressions 01/22/2025 1:43 PM CDT IMPRESSION: 1. Mild wall thickening of the large bowel up to the descending colon, consistent with acute colitis. 2. Abnormal sub mucosal fat deposition noted within the large bowel and the terminal ileum is suggestive of background chronic inflammatory bowel disease. 3. Uncomplicated diverticulosis of the sigmoid colon. Narrative 01/22/2025 1:43 PM CDT EXAM DESCRIPTION: CT ABDOMEN PELVIS W/O CONTRAST REASON FOR STUDY: Nausea, vomiting, and abdominal pain since this morning. Patient tachycardic and febrile today. Sepsis workup. TECHNIQUE: CT scan of the abdomen and pelvis performed without intravenous and without oral contrast using helical scanning technique. Reconstructed coronal and sagittal MPR images reviewed. All images stored on PACS. Automated exposure control was used as a dose optimization technique for this examination. COMPARISON: None FINDINGS: The sensitivity for detection of visceral lesions is diminished without the use of intravenous contrast. LOWER CHEST: Bibasilar atelectasis. No effusion. LIVER: Normal-sized liver. Multiple calcified granulomas. GALLBLADDER: Surgically absent BILE DUCTS: No intrahepatic or extrahepatic ductal dilatation. SPLEEN: Normal-sized spleen. Multiple calcified granulomata. PANCREAS: No identified cystic or solid masses. No significant calcifications. No adjacent inflammation or peripancreatic fluid collections. Pancreatic duct not dilated. ADRENALS: Normal. KIDNEYS/URINARY TRACT: Atrophic right kidney. No identified significant cystic or solid masses. No stones. No hydronephrosis or hydroureter. Urinary bladder is unremarkable. GI: There is mild wall thickening of the large bowel up to the descending colon, consistent with acute colitis. Abnormal sub mucosal fat deposition noted within the large bowel and the terminal ileum is suggestive of chronic inflammatory bowel disease. No dilated bowel loops. Uncomplicated diverticulosis of the sigmoid colon. PERITONEUM: Small free-fluid in the pelvis. No free air. RETROPERITONEUM: No mass or adenopathy. REPRODUCTIVE: No significant abnormality. VASCULATURE: No abdominal aortic aneurysm. MUSCULOSKELETAL: No significant abnormality. OTHER: No other abnormality. THIS IS AN ELECTRONICALLY VERIFIED FINAL REPORT 01/22/2025 1:40 PM - Electronically signed by Franchesca Cooper M.D. FT: FT Report ID: [id number] Reading Location: [id number] Procedure Note Franchesca Biggs MD - 01/22/2025 EXAM DESCRIPTION: CT ABDOMEN PELVIS W/O CONTRAST REASON FOR STUDY: Nausea, vomiting, and abdominal pain since this morning. Patient tachycardic and febrile today. Sepsis workup. TECHNIQUE: CT scan of the abdomen and pelvis performed without intravenous and without oral contrast using helical scanning technique. Reconstructed coronal and sagittal MPR images reviewed. All images stored on PACS. Automated exposure control was used as a dose optimization technique for this examination. COMPARISON: None FINDINGS: The sensitivity for detection of visceral lesions is diminished without the use of intravenous contrast. LOWER CHEST: Bibasilar atelectasis. No effusion. LIVER: Normal-sized liver. Multiple calcified granulomas. GALLBLADDER: Surgically absent BILE DUCTS: No intrahepatic or extrahepatic ductal dilatation. SPLEEN: Normal-sized spleen. Multiple calcified granulomata. PANCREAS: No identified cystic or solid masses. No significant calcifications. No adjacent inflammation or peripancreatic fluid collections. Pancreatic duct not dilated. ADRENALS: Normal. KIDNEYS/URINARY TRACT: Atrophic right kidney. No identified significant cystic or solid masses. No stones. No hydronephrosis or hydroureter. Urinary bladder is unremarkable. GI: There is mild wall thickening of the large bowel up to the descending colon, consistent with acute colitis. Abnormal sub mucosal fat deposition noted within the large bowel and the terminal ileum is suggestive of chronic inflammatory bowel disease. No dilated bowel loops. Uncomplicated diverticulosis of the sigmoid colon. PERITONEUM: Small free-fluid in the pelvis. No free air. RETROPERITONEUM: No mass or adenopathy. REPRODUCTIVE: No significant abnormality. VASCULATURE: No abdominal aortic aneurysm. MUSCULOSKELETAL: No significant abnormality. OTHER: No other abnormality. THIS IS AN ELECTRONICALLY VERIFIED FINAL REPORT 01/22/2025 1:40 PM - Electronically signed by Franchesca Cooper M.D. FT: FT Report ID: [id number] Reading Location: [id number] IMPRESSION: 1. Mild wall thickening of the large bowel up to the descending colon, consistent with acute colitis. 2. Abnormal sub mucosal fat deposition noted within the large bowel and the terminal ileum is suggestive of background chronic inflammatory bowel disease. 3. Uncomplicated diverticulosis of the sigmoid colon. David Romano PAC IMG CT ORDERABLES Fin al Result * RSV,SARS-COV-2,INFLUENZA A&B BY PCR (01/22/2025 12:42 PM CDT) FLU A Negative Negative, Error 01/22/2025 1:27 PM CDT [facility] FLU B Negative Negative 01/22/2025 1:27 PM CDT [facility] RESP SYNC VIRUS Negative Negative 1:27 PM CDT [facility] SARSCOV2 NOT DETECTED (Reference Range for this test is Not Detected) 01/22/2025 1:27 PM CDT [facility] Comment:This test was perfor med by a Reverse Waitstaff Captain PCR Method. Nasopharyngeal NASOPHARYNGEAL STRUCTURE / Unknown Non-Phlebotomy Collection / Unknown 01/22/2025 12:42 PM CDT 01/22/2025 12:48 PM CDT Carlos [place] MD MICROBIOLOGY - GENERAL ORD ERABLES Final Result [facility] [place] [address] * GOLD TOP TUBE (01/22/2025 11:33 AM CDT) Blood No Phlebotomy Charged / Unknown 01/22/2025 11:33 AM CDT 01/22/2025 11:48 AM CDT Carlos [place] MD CHEMISTRY ORDERABLES Final Result Performing Organization Address City/[facility]/ZIP Co de Phone Number [facility] [place] [address] * BLUE TOP TUBE (01/22/2025 11:33 AM CDT) Blood No Phlebotomy Charged / Unknown 01/22/2025 11:33 AM CDT 01/22/2025 11:48 AM CDT Carlos [place] MD HEMATOLOGY ORDERABLES Katelyn l Result Performing Organization Address [facility] Co de Phone Number [facility] [place] [address] * CULTURE, BLOOD (01/22/2025 11:33 AM CDT) Only the most recent of2 resultswithin the time period is included. CULTURE RESULTS ANAEROBIC GRAM-POSITIVE BACILLUS 01/29/2025 11:33 AM CDT [facility] Comment:UNABLE TO FURTHER ID ENTIFY GRAM STAIN 01/29/2025 11:33 AM CDT [facility] Comment: anaerobic bottle positive after 2 days 19 hours and 39 minutes Blood culture gram stain read at 17:31 CDT on 01/25/25 by lloyd Site: not given Culture BLOOD SPECIMEN / Unknown Venipuncture / Unknown 01/22/2025 11:33 AM CDT 01/22/2025 11:46 AM CDT Carlos [place] MD MICROBIOLOGY - GENERAL ORD ERABLES Final Result Performing Organization Address City/[facility]/ZIP Co de Phone Number [facility] [address] [place] [address], [place] * (ABNORMAL) CMP (COMPREHENSIVE METABOLIC PANEL) (01/22/2025 11:33 AM CDT) SODIUM 135(L) 136 - 145 mmol/L 01/22/2025 12:11 PM CDT [facility] POTASSIUM 4.4 3.5 - 5.1 mmol/L 01/22/2025 12:11 PM CDT [facility] CHLORIDE 104 98 - 107 mmol/L 01/22/2025 12:11 PM CDT [facility] CO2, VENOUS 21(L) 22 - 30 mmol/L 01/22/2025 12:11 PM CDT [facility] ANION GAP 14.4 <18.0 mmol/L 01/22/2025 12:11 PM CDT [facility] GLUCOSE 238(H) 70 - 99 mg/dL 01/22/2025 12:11 PM CDT [facility] BUN 25(H) 10 - 20 mg/dL 01/22/2025 12:11 PM CDT [facility] CREATININE, BLOOD 1.70(H) 0.60 - 1.00 mg/dL 01/22/2025 12:11 PM CDT [facility] BUN/CREATININE RATIO 15 12 - 20 ratio 01/22/2025 12:11 PM CDT [facility] TOTAL PROTEIN 6.7 6.0 - 8.0 g/dL 01/22/2025 12:11 PM CDT [facility] ALBUMIN 3.9 3.5 - 5.0 g/dL 01/22/2025 12:11 PM CDT [facility] A/G RATIO 1.4 1.0 - 2.2 01/22/2025 12:11 PM CDT [facility] CALCIUM 8.5(L) 8.7 - 10.5 mg/dL 01/22/2025 12:11 PM CDT [facility] T BILI 0.7 0.2 - 1.2 mg/dL 01/22/2025 12:11 PM CDT [facility] SGOT (AST) 18 <43 U/L 01/22/2025 12:11 PM CDT [facility] SGPT (ALT) 11 <56 U/L 01/22/2025 12:11 PM CDT [facility] ALKALINE PHOSPHATASE 114 40 - 150 U/L 01/22/2025 12:11 PM CDT [facility] GFR, ESTIMATED 32(L) >=60 01/22/2025 12:11 PM CDT [facility] Comment: Creatinine Clearance is the preferred criteria for selecting drug dose adjustments in renally impaired patients. The GFR is provided as additional pertinent clinical information. GFR is reported in mL/min/1.73 sq m. Calculation based on the Chronic Kidney Disease Epidemiology Collaboration (CKD- EPI) equation refit without adjustment for race. GFR, EST. 36(L) >=60 025 12:11 PM CDT [facility] GFR, EST. NONAFRICAN 30(L) >=60 01/22/2025 12:11 PM CDT [facility] Blood Venipuncture / Unknown 01/22/2025 11:33 AM CDT 01/22/2025 11:46 AM CDT Carlos [place] MD CHEMISTRY ORDERABLES Final Result [facility] [place] [address] * EKG 12 LEAD (01/22/2025 11:25 AM CDT) Ventricular Rate 119 BPM EXTERNAL EKG Atrial Rate 119 BPM EXTERNAL EKG P-R Interval 168 ms EXTERNAL EKG QRS Duration 74 ms EXTERNAL EKG Q-T Duration 306 ms EXTERNAL EKG QTC CALCULATION 430 ms EXTERNAL EKG P [place] 34 degrees EXTERNAL EKG R [place] -19 degrees EXTERNAL EKG T [place] 56 degrees EXTERNAL EKG 01/22/2025 11:2 5 AM CDT Impressions EXTERNAL EKG - 01/22/2025 4:33 PM CDT Sinus tachycardia Low voltage QRS Inferior infarct , age undetermined Possible Anterolateral infarct , age undetermined Abnormal ECG When compared with ECG of 21-MAY-2019 20:06, No significant change was found ~ Confirmed by GENE VANCE ([id number]) on 01/22/2025 4:33:55 PM Narrative Procedure Note Gene Vance MD - 01/22/2025 IMPRESSION: Sinus tachycardia Low voltage QRS Inferior infarct , age undetermined Possible Anterolateral infarct , age undetermined Abnormal ECG When compared with ECG of 21-MAY-2019 20:06, No significant change was found ~ Confirmed by GENE VANCE ([id number]) on 01/22/2025 4:33:55 PM us Carlos [place] MD IMG ECG ORDERABLES Final R esult EXTERNAL EKG * EKG SCAN (01/22/2025 12:00 AM CDT) 01/22/2025 us Provider Scan IMG ECG ORDERABLES Final Result RESULTING AGENCY from Last 3 Months Insurance MEDICARE C [employer] [place] Advance Directives * Full Code (Latest Code Status on File) Date Activated Date Inactivated Comments 01/22/2025 1:59 PM CPR-Full Treatm ent: FULL ARREST: Attempt Resuscitation/CPR wit intubation and mechanical ventilation. PRE-ARREST: Use entire range of life support measures to stabilize the patient. Care Teams Family Centered Specialist Relationship Specialty Start Date End Date Wiley Causey MD [address] [place] [address] PCP - General Family Medicine 06/28/22
--- OUTSIDE RECORDS SUMMARY | 2025-02-28 06:48 | XMS_ITS | Clinical Summary ---
Author Organization [facility] Jeffery payan [facility] Address [address] [place] [address] Care Team Providers Care Bowling Ball Weigher And Packer Name Role Phone Wiley Causey MD Primary Care Provider [phone] Allergies Active Allergy Reactions Criticality Noted Date Comments Atorvastatin Hives High 12/03/2020 Budesonide-Formoterol Muscle Pain Medium 11/26/2020 Vrinlnv-Lfp-Oiv Reductase Inhibitors Other (See Comments) 04/28/2021 Tramadol Hives High 09/15/2018 Medications amLODIPine (NORVASC) 5 mg tablet Take 5 mg by mouth. 9 Active betamethasone valerate (VALISONE) 0.1 % Cream Apply to affected area. Active blood sugar diagnostic Strip TEST BS ONCE D 0 Active lancets USE TO TEST ONCE DAILY 0 Active lisinopriL (PRINIVIL) 20 mg tablet Take 20 mg by mouth. Active Vit D3 & D-Qrvhcuwjm-Of ps [phone] pbhv-mnu-em-mg Tablet Take by mouth. Activ e omeprazole (PriLOSEC) 40 mg Capsule, Delayed Release(E.C.) Take 40 mg by mouth daily. Active Ozempic 1 mg/dose (4 mg/3 mL) Pen Injector 2 Active allopurinoL (ZYLOPRIM) 300 mg tablet [...] Encounters Date Type Department Care Team Description 02/20/2025 External Device Data STL ABSTRACTION Provider, Abstract 01/30/2025 External Device Data STL ABSTRACTION Provider, Abstract 01/29/2025 External Device Data STL ABSTRACTION Provider, Abstract 12/26/2024 1:00 PM CDT Office Visit [facility] Oncology and Hematology [facility] [address] [place] [address] Gabo Jiang MD Chronic anemia (Primary Dx) 12/25/2024 Orders Only [facility] Oncology and Hematology [facility] [address] [place] [address] Gabo Jiang MD 12/18/2024 External Device Data STL ABSTRACTION Provider, [...] Sign Reading Time Taken Comments Blood Pressure 140/69 12/26/2024 1:02 PM CDT Pulse 110 12/26/2024 1:00 PM CDT Temperature 37.4 C (99.3 F) 12/26/2024 1:00 PM CDT Respiratory Rate 16 12/26/2024 1:00 PM CDT Oxygen Saturation 94% 12/26/2024 1:00 PM CDT Inhaled Oxygen Concentration - - Weight 94.9 kg (209 lb 3.2 oz) 12/26/2024 1:00 P M CDT Height 157.5 cm (5' 2) 04/20/2022 2:54 PM CDT Body Mass Index 38.26 04/20/2022 2:54 PM CDT Plan of Treatment Upcoming Encounters Date Type Department Care Team (Late st Contact Info) Description 06/27/2025 1:15 PM FAMILY MANAGER Office Visit [facility] Oncology and Hematology [facility] [address] [facility] [address] [place] [address] Gabo Jiang MD [address] [facility] [address] [place] [address] Health Maintenance Due Date Last [...] MONTHS 12/30/2020 07/01/2020, 08/2019 INFLUENZA VACCINE (#1) 2025 Procedures Procedure Name Priority Date/Time Associated Diagnosis Comments BASIC METABOLIC PANEL Routine 12/24/2024 11:06 AM CDT from Last 3 Months Results * BASIC METABOLIC PANEL (12/24/2024 11:06 AM CDT) Blood Gabo Jiang MD CHEMISTRY ORDERABLES Final Resu lt from Last 3 Months Insurance HUMANA [facility] MED[place]ID [place] Care Teams Bowling Ball Weigher And Packer Relationship Specialty Start Date End Date Wiley Causey MD PCP - General Family Practice 08/04/21
--- OUTSIDE RECORDS SUMMARY | 2025-02-28 06:48 | XMS_ITS | Clinical Summary ---
Author Organization [facility] Address [address] [place] [address] Care Team Providers Care Funeral Director'S Assistant Name Role Phone Angel Cottrell DO Primary Care Provider [phone] Allergies Active Allergy Reactions Criticality Noted Date [...] mouth daily Monthly infusion Active vit D3-vit I-eyfqwnfgd-dev s [phone] jnel-rwy-zm-mg tablet Take by mouth Active ergocalciferol (VITAMIN [...] - continue medication and follow up with Engine House Helper. MADDY (obstructive sleep apnea) 03/20/2020 Type 2 [...] low sugars. Ophthalmology exam on regular basis. 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 Gender Identity Not on file Sexual Orientation [...] 04/22/2021 2:29 PM CDT Plan of Treatment Health Maintenance Due Date Last Done Comments Albumin Creatinine Ratio, Urine 1952 Breast Cancer Screening-Mammogram 1952 Colon Cancer Screening-Colonoscopy 1952 Depression Screening 1952 Hepatitis C Screening 1952 Osteoporosis Screening-Bone Density Scan 1952 eGFR 1952 Dilated Eye Exam 1952 DTaP/Tdap/Td Vaccine (1 - Tdap) 1963 Hepatitis B Screening 1970 Zoster Vaccine (1 of 2) 2002 Well Visit 65+ 2017 Pneumococcal vaccine 65+ (2 of 2 - PPSV23, PCV20, or PCV21) 09/12/2017 07/18/2017, 04/05/2017 Lipid Panel 03/29/2018 03/29/2017, 02/25/2016 Hemoglobin A1C 07/19/2020 01/17/2020, 03/29/2017 Foot Exam 03/20/2021 03/20/2020 Fall Risk Assessment 04/22/2022 04/22/2021 Influenza Vaccine (#1) 2025 Procedures Procedure Name Priority Date/Time Associated Diagnosis Comments HEMOGLOBIN A1C Routine 01/17/2020 LIPID PANEL New Adm-Reg 03/29/2017 7:10 AM CDT from Last 3 Months or Most Recently Relevant to Health Maintenance Results * (ABNORMAL) Hemoglobin A1c (01/17/2020) SCRIBED Hemoglobin A1c 6.7(A) 4.0 - 5.5 EXTERNAL LAB Blood specimen (specimen) 01/17/2020 Historical Provider LAB BLOOD ORDERABLES Katelyn l Result EXTERNAL LAB * (ABNORMAL) Lipid panel (03/29/2017 7:10 AM CDT) Cholesterol 176 40 - 199 mg/dL [facility] ([place]) Comment: Interpretive Data Desirable: Less than 200 mg/dl Borderline High: 200 - 239 mg/dl High: Greater than 239 mg/dl Current interpretive data was last revised on 2014. Triglycerides 213.0(H) <=150.0 mg/dL [facility] ([place]) Comment: Interpretive Data Normal: Less than 150 mg/dl Borderline high: 150-199 mg/dl High: 200-499 mg/dl Very high: Greater than or equal to 500 mg/dl Current interpretive data was last revised on 2016. HDL 39(L) 40 - 60 mg/dL [facility] ([place]) Comment: Interpretive Data Low HDL Cholesterol: Less than 40 mg/dl Normal HDL Cholesterol: 40-60 mg/dl High HDL Cholesterol: Greater than 60 mg/dl Current interpretive data was last revised on 2014. LDL, calculated 94 mg/dL ANDREAS [facility] ([place]) Comment: Interpretive Data Optimal Less than 100 mg/dL Near optimal/Above optimal 100 - 129 mg/dL Borderline high 130 - 159 mg/dL High 160 - 189 mg/dL Very high Greater than or = 190 mg/dL LDL values are not valid when the total Triglyceride is greater than 300 mg/dL. Current interpretive data was last revised on 2014. Non-HDL Cholesterol 137 mg/dL [facility] ([place]) Comment: Interpretive Data Optimal Less than 130 mg/dL Low Risk 130 - 159 mg/dL Moderate Risk 160 - 189 mg/dL High Risk Greater than or equal to 190 mg/dL Current interpretive data was last revised on 2014. Blood specimen (specimen) 03/29/2017 7:10 AM CDT 03/29/2017 9:40 AM CDT Sheldon Santos MD LAB BLOOD ORDERABLES Final Result [facility] ([place]) [address] [facility] [place] [address] from Last 3 Months or Most Recently Relevant to Health Maintenance Insurance HUMANA CHOICE MEDICARE PPO IDPA [facility] CHOICE MEDICARE O IDPA HUMAN MEDICARE HMO Care Teams Funeral Director'S Assistant Relationship Specialty Start Date End Date Berkenbile, Jaime., DO PCP - General Family Medicine 03/11/20
--- OUTSIDE RECORDS SUMMARY | 2025-02-28 06:48 | XMS_ITS | Clinical Summary ---
Author Organization [facility] Address [address] [place] [address] Phone Care Team Providers Care Review Analyst Name Role Phone Wiley Causey MD Primary Care Provider [phone] Allergies Active Allergy Reactions Criticality Noted Date [...] - continue medication and follow up with Professor Of Practice. Obstructive sleep apnea syndrome 03/20/2020 Type 2 [...] / Low and Medium Risk (1 of 2 - PCV) 2002 Influenza Vaccine (#1) [address] [place] [address] MEDICARE ADVANTAGE MEDICAID - [place] Care Teams Review Analyst Relationship Specialty Start Date End Date Wiley Causey MD PCP - General Family Medicine 10/05/21
--- OUTSIDE RECORDS SUMMARY | 2025-02-28 06:48 | XMS_ITS | Clinical Summary ---
Author Organization [facility] Address [address] [address] Care Team Providers Care Painter Decorator Name Role Phone Wiley Causey MD Primary Care Provider [phone] Allergies Active Allergy Reactions Criticality Noted Date [...] Comments Blood Pressure 132/62 09/15/2021 2:23 PM CLAIM MANAGER Pulse 93 06/16/2021 1:49 PM CLAIM MANAGER Temperature 36.4 C (97.6 F) 09/15/2021 2:23 PM CLAIM MANAGER Respiratory Rate 18 09/15/2021 2:23 PM CLAIM MANAGER Oxygen Saturation 98% 09/15/2021 2:23 PM CLAIM MANAGER Inhaled Oxygen Concentration - - Weight 101 kg (223 lb) 09/15/2021 2:23 PM CLAIM MANAGER Height 157.5 cm (5' 2) 09/15/2021 2:23 PM CLAIM MANAGER Body Mass Index 40.79 09/15/2021 2:23 PM CLAIM MANAGER Plan of Treatment Health Maintenance Due [...] Visual Foot Exam 12/11/2020 Influenza Vaccine (#1) 2025 Hepatitis B Vaccine Aged Out No longe r eligible based on patient's age to complete this topic Procedures Procedure Name Priority Date/Time Associated Diagnosis Comments HEMOGLOBIN A1C Routine 07/01/2020 11:00 AM CLAIM MANAGER from Last 3 Months or Most Recently Relevant to Health Maintenance Results * (ABNORMAL) Hemoglobin A1c (07/01/2020 11:00 AM CLAIM MANAGER) Hemoglobin A1C 6.3(H) <5.7 % of [...] diabetes for children. 07/01/2020 11:0 0 AM CLAIM MANAGER us Hay Jerez DO LAB BLOOD ORDERABLES Final R esult [facility] from Last 3 Months or Most Recently Relevant to Health Maintenance Insurance [employer] Medicare Medicaid [place] Care Teams Painter Decorator Relationship Specialty Start Date End Date Wiley Causey MD [address] [place] [address] PCP - General Family Medicine 06/17/21
[2025-02-28 19:08] LABS: MALB Creatinine Ratio 13.2 mg/g (0-30)
== END 2025-02-28 06:44 | disposition home or self-care (01) ==
PROVIDERS: PCP Nurse Practitioner Adult Health; Visit Provider Nurse Practitioner Adult Health
DX: I12.9 Hypertensive chronic kidney disease with stage 1 through stage 4 chronic kidney disease, or unspecified chronic kidney disease (principal); E11.21 Type 2 diabetes mellitus with diabetic nephropathy; E11.22 Type 2 diabetes mellitus with diabetic chronic kidney disease; N18.4 Chronic kidney disease, stage 4 (severe); K90.9 Intestinal malabsorption, unspecified; R19.7 Diarrhea, unspecified; M10.9 Gout, unspecified; G44.89 Other headache syndrome; E55.9 Vitamin D deficiency, unspecified; E53.8 Deficiency of other specified B group vitamins
CPT/HCPCS: 74018; 82043

== ENCOUNTER 2025-03-05 08:03 | Outpatient (CLI) | payer MEDICARE, MEDICAID, SELFPAY ==
--- OUTSIDE RECORDS SUMMARY | 2025-03-05 08:20 | XMS_ITS | Clinical Summary ---
Author Organization [facility] Address [address] [place] [address] Phone Care Team Providers Care Profile Grinder Name Role Phone Wiley Causey MD Primary Care Provider [phone] Allergies Active Allergy Reactions Criticality Noted Date [...] - continue medication and follow up with Driver Service Technician. Obstructive sleep apnea syndrome 03/20/2020 Type 2 [...] PCV) 2002 Influenza Vaccine (#1) [address] [place] [address] MEDICARE ADVANTAGE MEDICAID - [place] Care Teams Profile Grinder Relationship Specialty Start Date End Date Wiley Causey MD PCP - General Family Medicine 10/05/21
--- OUTSIDE RECORDS SUMMARY | 2025-03-05 08:20 | XMS_ITS | Clinical Summary ---
Author Organization [facility] Address [address] [place] [address] Care Team Providers Care Community Health Agent Name Role Phone Angel Cottrell DO Primary Care Provider [phone] Allergies Active Allergy Reactions Criticality Noted Date [...] mouth daily Monthly infusion Active vit D3-vit K-ormqzzfma-cfi s [id number] efsb-cog-ln-mg tablet Take by mouth Active ergocalciferol (VITAMIN [...] - continue medication and follow up with Makeup Artist. 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 Non-HDL Cholesterol 137 mg/dL [facility] ([place]) Comment: Interpretive Data Optimal Less than 130 mg/dL Low Risk 130 - 159 mg/dL Moderate Risk 160 - 189 mg/dL High Risk Greater than or equal to 190 mg/dL Current interpretive data was last revised on 2014. Blood specimen (specimen) 03/29/2017 7:10 AM CDT 03/29/2017 9:40 AM CDT Sheldon Santos MD LAB BLOOD ORDERABLES Final Result [facility] ([place]) 1 [facility] Department [place] [address] from Last 3 Months or Most Recently Relevant to Health Maintenance Insurance HUMANA CHOICE MEDICARE PPO IDPA [facility] CHOICE MEDICARE O IDPA HUMAN MEDICARE HMO Care Teams Community Health Agent Relationship Specialty Start Date End Date Berkenbile, Jaime., DO PCP - General Family Medicine 03/11/20
--- OUTSIDE RECORDS SUMMARY | 2025-03-05 08:20 | XMS_ITS | Clinical Summary ---
Author Organization [facility] Jeffery payan [facility] Address [address] [place] [place] [address] Care Team Providers Care Physical Therapy Teacher Name Role Phone Wiley Causey MD Primary Care Provider [phone] Allergies Active Allergy Reactions Criticality Noted Date Comments Atorvastatin Hives High 12/03/2020 Budesonide-Formoterol Muscle Pain Medium 11/26/2020 Zpewcuc-Vsf-Eek Reductase Inhibitors Other (See Comments) 04/28/2021 Tramadol [...] mg by mouth. Active Vit D3 & H-Qlndyifmk-Go ps [id number] zdyu-ysp-ll-mg Tablet Take by mouth. Activ e omeprazole [...] Abstract 12/26/2024 1:00 PM CDT Office Visit [facility] Oncology and Hematology [facility] [address] [place] [address] Gabo Jiang MD Chronic anemia (Primary Dx) 12/25/2024 Orders Only [facility] Oncology and Hematology [facility] [address] [place] [address] Gabo Jiang MD 12/18/2024 External Device Data [...] st Contact Info) Description 06/27/2025 1:15 PM GLOVE TAGGER Office Visit [facility] Oncology and Hematology [facility] [address] [facility] [address] [place] [address] Gabo Jiang MD [address] [facility] [address] [place] [address] Health Maintenance Due Date Last [...] PLUS [facility] MEDICAID [place] Care Teams Physical Therapy Teacher Relationship Specialty Start Date End Date Wiley Causey MD PCP - General Family Practice 08/04/21
--- OUTSIDE RECORDS SUMMARY | 2025-03-05 08:20 | XMS_ITS | Clinical Summary ---
Author Organization [facility] Address [address] [address] Phone Care Team Providers Care Land Classifier Name Role Phone Wiley Causey MD Primary Care Provider [phone] Allergies Active Allergy Reactions Criticality Noted Date [...] for Nausea - 1st line. 10 Tablet Active Active Problems Problem Noted Date Diagnosed Date Colitis 01/22/2025 Sepsis 01/22/2025 Adenomatous colon polyp 07/18/1977 Sleep apnea Overview (01/22/2025): Cpap machine Psoriasis Morbid obesity Kidney stones Hypertension Hypercholesterolemia GERD (gastroesophageal reflux disease) Diverticula, colon Diabetes Asthma Encounters Date Type Department Care Team Description 01/22/2025 11:23 AM CDT - 01/24/2025 1:10 PM CDT Hospital Encounter [facility] [address] [place] [id number] Carlos Ross MD Patel, Satyen V, MD Smith, Stacey Mccullough, LEAD EMBEDDED SOFTWARE ENGINEER, PLY CUTTER Gabe Adkins MD Colitis Discharge Disposition: Discharged [...] declined 01/22/2025 How often do you attend sabianism or anabaptism serv ices? Patient declined 01/22/2025 Do you belong to any clubs o r organizations such as sabianism groups, unions, fraternal or athletic groups, or [...] medical care, and heating? Patient declined 01/22/2025 [facility] Occupat ional [facility] - Occupational Stress Questionnaire Answer Date [...] any time in the past 12 m [facility], were you homeless or living in a mcfp (including now)? Patient declined 01/22/2025 [facility] Utilities Answer Date Recorded In the past 12 months has th e electric, gas, oil, or water company threatened to shut off services in your home? Patient declined 01/22/2025 Comments No Sex and Gender Information Value Date Recorded Sex Assigned at Not on file Legal Sex Female 2:49 PM MARKETING PRODUCTION COORDINATOR Gender Identity Not on file Sexual [...] Cancer Screening 09/27/2023 SARS-COV-2 Immunization ( - season) 2024 Influenza Immunization (#1) 2025 Diabetes: Hemoglobin A1c 07/27/2025 025, 01/23/2025, 07/01/2020, Additional history exists Diabetes: Nephropathy Screening 01/22/2026 01/22/2025, 05/21/2019 Pneumococcal Immunization Combined Discontinued 07/18/2017, 04/05/2017 Zoster Immunization Completed 07/02/2022, 2 Hepatitis B Immunization Aged Out No longer [...] of8 resultswithin the time period is included. GLUCOSE,BEDSID E POCT 184(H) 70 - 99 mg/dL 01/24/2025 11:40 AM CDT [facility] Blood 01/24/2025 11:2 4 AM CDT 01/24/2025 11:40 AM CDT us None Provider POINT OF CARE TESTING Final Resu lt [facility] [address] [place] [address] * (ABNORMAL) HEMOGLOBIN A1C W/ ESTIMATED GLUCOSE (01/24/2025 5:46 AM CDT) Only the most recent of2 resultswithin the time period is included. HGB-A1C 7.1(H) 4.0 - 6.0 % 01/24/2025 8:11 AM CDT [facility] Est Average Glucose 157.1 mg/dL 01/24/2025 8:11 AM CDT [facility] Blood Venipuncture / Unknown 01/24/2025 5:46 AM CDT 01/24/2025 7:09 AM CDT Narrative [facility] - 01/24/2025 8:11 AM CDT HEMOGLOBIN A1C: DIABETIC PATIENTS: WELL-CONTROLLED: 6.2 - 7.0 INTERMEDIATE WELL-CONTROLLED: 7.0 - 9.0 POORLY-CONTROLLED: >9.0 Specimens containing greater than 5% of Hemoglobin F may result in lower than expected % HbA1C results. us Stacey Masterson APRN, CNP CHEMISTRY ORDERABLES Fi nal Result [facility] [address] [place] [address] * (ABNORMAL) CBC WITH AUTO DIFFERENTIAL (01/24/2025 5:46 AM CDT) Only the most recent of3 resultswithin the time period is included. WBC 6.12 4.00 - 12.00 10(3)/mcL 01/24/2025 7:19 AM CDT [facility] RBC 3.47(L) 3.80 - 5.30 10(6)/mcL 01/24/2025 7:19 AM CDT [facility] HEMOGLOBIN (HGB) 9.7(L) 12.0 - 15.8 g/dL 01/24/2025 7:19 AM CDT [facility] HEMATOCRIT (HCT) 30.6(L) 36.0 - 47.0 % 01/24/2025 7:19 AM CDT [facility] MCV 88.2 82.0 - 96.0 fL 01/24/2025 7:19 AM CDT [facility] MCH 28.0 26.0 - 34.0 pg 01/24/2025 7:19 AM CDT [facility] MCHC 31.7 31.0 - 36.0 g/dL 01/24/2025 7:19 AM CDT [facility] PLATELET COUNT 146 140 - 440 10(3)/mcL 01/24/2025 7:19 AM CDT [facility] RDW 14.9 11.8 - 15.5 % 01/24/2025 7:19 AM CDT [facility] MPV 9.4(L) 9.7 - 12.4 fL 01/24/2025 7:19 AM CDT [facility] NEUTROPHILS 63.3 47.0 - 73.0 % 01/24/2025 7:19 AM CDT [facility] LYMPHOCYTES 19.3 18.0 - 42.0 % 01/24/2025 7:19 AM CDT [facility] MONOCYTES 11.3 4.0 - 12.0 % 01/24/2025 7:19 AM CDT [facility] EOSINOPHILS 5.1(H) 0.0 - 5.0 % 01/24/2025 7:19 AM CDT [facility] BASOPHILS 0.3 0.0 - 1.0 % 01/24/2025 7:19 AM CDT [facility] IMMATURE GRANULOCYTE 0.7(H) 0.0 - 0.4 % 01/24/2025 7:19 AM CDT [facility] Comment:Immature Granulocyte s includes Metamyelocytes, Myelocytes, and Promyelocytes. ABSOLUTE NEUTROPHILS 3.88 1.60 - 7.70 10(3)/mcL 01/24/2025 7:19 AM CDT [facility] ABSOLUTE LYMPHOCYTES 1.18(L) 1.30 - 3.20 10(3)/mcL 01/24/2025 7:19 AM CDT [facility] ABSOLUTE MONOCYTES 0.69 0.20 - 1.00 10(3)/mcL 01/24/2025 7:19 AM CDT [facility] ABSOLUTE EOSINOPHIL 0.31 0.00 - 0.40 10(3)/mcL 01/24/2025 7:19 AM CDT [facility] ABSOLUTE BASOPHILS 0.02 0.00 - 0.10 10(3)/mcL 01/24/2025 7:19 AM CDT [facility] ABSOLUTE IMMATURE GRANULOCYTE 0.04(H) 0.00 - 0.03 10 (3) mcL. 01/24/2025 7:19 AM CDT [facility] NRBC PER 100 WBC 0 01/25/20 7:19 AM CDT [facility] Blood Venipuncture / Unknown 01/24/2025 5:46 AM CDT 01/24/2025 7:09 AM CDT us Stacey Masterson LEAD EMBEDDED SOFTWARE ENGINEER, PLY CUTTER HEMATOLOGY ORDERABLES F inal Result [facility] [address] [place] [address] * (ABNORMAL) BASIC METABOLIC PANEL W/ CALCIUM TOTAL (01/24/2025 5:46 AM CDT) Only the most recent of2 resultswithin the time period is included. SODIUM 142 136 - 145 mmol/L 01/24/2025 7:40 AM CDT [facility] POTASSIUM 3.7 3.5 - 5.1 mmol/L 01/24/2025 7:40 AM CDT [facility] CHLORIDE 113(H) 98 - 107 mmol/L 01/24/2025 7:40 AM CDT [facility] CO2, VENOUS 22 22 - 30 mmol/L 01/24/2025 7:40 AM CDT [facility] ANION GAP 10.7 <18.0 mmol/L 01/24/2025 7:40 AM CDT [facility] GLUCOSE 139(H) 70 - 99 mg/dL 01/24/2025 7:40 AM CDT [facility] BUN 13 10 - 20 mg/dL 01/24/2025 7:40 AM CDT [facility] CREATININE, BLOOD 1.64(H) 0.60 - 1.00 mg/dL 01/24/2025 7:40 AM CDT [facility] BUN/CREATININE RATIO 8(L) 12 - 20 ratio 01/24/2025 7:40 AM CDT [facility] CALCIUM 7.8(L) 8.7 - 10.5 mg/dL 01/24/2025 7:40 AM CDT [facility] GFR, ESTIMATED 33(L) >=60 01/24/2025 7:40 AM CDT [facility] Comment: Creatinine Clearance is the preferred criteria for selecting drug dose adjustments in renally impaired patients. The GFR is provided as additional pertinent clinical information. GFR is reported in mL/min/1.73 sq m. Calculation based on the Chronic Kidney Disease Epidemiology Collaboration (CKD- EPI) equation refit without adjustment for race. GFR, EST. 37(L) >=60 025 7:40 AM CDT [facility] GFR, EST. NONAFRICAN 31(L) >=60 01/24/2025 7:40 AM CDT [facility] Blood Venipuncture / Unknown 01/24/2025 5:46 AM CDT 01/24/2025 7:09 AM CDT us Stacey Masterson LEAD EMBEDDED SOFTWARE ENGINEER, PLY CUTTER CHEMISTRY ORDERABLES Fi nal Result Performing Organization Address [facility] [place]/[facility]/ZIP Co de Phone Number [facility] [address] [place] [address] * RHYTHM STRIP (01/24/2025 12:00 AM CDT) Only the most recent of7 resultswithin the time period is included. 01/24/2025 us Provider Scan IMG ECG ORDERABLES Final Result Performing Organization Address City/[facility]/ZIP Co de Phone Number RESULTING AGENCY * (ABNORMAL) URINALYSIS REFLEX IF INDICATED BY ABNORMAL RESULTS (01/22/2025 3:26 PM CDT) SPECIFIC GRAVITY 1.015 1.003 - 1.030 01/22/2025 3:53 PM CDT [facility] URINE PH 5.0 5.0 - 9.0 01/22/2025 3:53 PM CDT [facility] WBC ESTERASE Negative Negative 01/22/2025 3:53 PM CDT [facility] NITRITE Negative Negative 01/22/2025 3:53 PM CDT [facility] PROTEIN, RANDOM URINE 30 mg/dL(A) Negative 01/22/2025 3:53 PM CDT [facility] URINE GLUCOSE, QUAL 50 mg/dL(A) Negative 01/22/2025 3:53 PM CDT [facility] URINE KETONES Negative Negative 01/22/2025 3:53 PM CDT [facility] UROBILINOGEN Normal Normal mg/dL 01/22/2025 3:53 PM CDT [facility] URINE BLOOD Negative Negative dean/ul 01/22/2025 3:53 PM CDT [facility] URINALYSIS COLOR Yellow 01/23/20 3:53 PM CDT [facility] URINALYSIS CLARITY Slightly Cloudy 01/22/2025 3:53 PM CDT [facility] WBC (Urine) 0-5 Negative, 0-5 /hpf 01/22/2025 3:53 PM CDT [facility] URINE RBC'S 0-2 Negative, 0-2 /hpf 01/22/2025 3:53 PM CDT [facility] EPITHELIAL CELLS Moderate amount /lpf 01/22/2025 3:53 PM CDT [facility] BACTERIA, URINE Negative Negative /hpf 01/22/2025 3:53 PM CDT [facility] CASTS 1-5/LPF Finely Granular Casts(A) Negative, 0-2/lpf, 3-5/lpf, 6-10/lpf, 11-20/lpf, >20/lpf, Rare Hyaline, Few Hyaline, Moderate Hyaline, Many Hyaline, Rare Granular, Few Granular, Moderate Granular, Many Granular, Few WBC, Moderate WBC , Many WBC , Rare WBC, Rare RBC, Few RBC, Moder... /lpf 01/22/2025 3:53 PM CDT [facility] Urine URINE SPECIMEN / Unknown Non-Phlebotomy Collection / Unknown 01/22/2025 3:26 PM CDT 01/22/2025 3:32 PM CDT Result [facility] Carlos Ross MD URINE ORDERABLES Final Res ult Performing Organization Address City/[facility]/ZIP Co de Phone Number [facility] [address] [place] [address] * LACTIC ACID (LACTATE) (01/22/2025 3:10 PM CDT) Only the most recent of2 resultswithin the time period is included. LACTIC ACID 1.5 0.7 - 2.0 mmol/L 01/22/2025 4:09 PM CDT [facility] Blood Venipuncture / Unknown 01/22/2025 3:10 PM CDT 01/22/2025 3:16 PM CDT Result [facility] Carlos Ross MD CHEMISTRY ORDERABLES Final Result Performing Organization Address [facility] [place]/[facility]/ZIP Co de Phone Number [facility] [address] [place] [address] * Critical Care (01/22/2025 2:01 PM CDT) [...] old charts Care discussed with: admitting provider Result [facility] Carlos Ross MD PROCEDURE/MINOR SURGICAL O RDERABLES [...] Franchesca Cooper M.D. FT: FT Report ID: [id number] Reading Location: [place] [address] Procedure Note Franchesca Biggs MD - 01/22/2025 [...] Franchesca Cooper M.D. FT: FT Report ID: [id number] Reading Location: [id number] IMPRESSION: 1. Mild wall thickening of the [...] Negative Negative, Error 01/22/2025 1:27 PM CDT [facility] FLU B Negative Negative 01/22/2025 1:27 PM CDT [facility] RESP SYNC VIRUS Negative Negative 1:27 PM CDT [facility] SARSCOV2 NOT DETECTED (Reference Range for this test is Not Detected) 01/22/2025 1:27 PM CDT [facility] Comment:This test was perfor med by a Reverse Fur Blowing Machine Operator PCR Method. Nasopharyngeal NASOPHARYNGEAL STRUCTURE / Unknown Non-Phlebotomy Collection / Unknown 01/22/2025 12:42 PM CDT 01/22/2025 12:48 PM CDT Carlos Ross MD MICROBIOLOGY - GENERAL ORD ERABLES Final Result [facility] [address] [place] [address] * GOLD TOP TUBE (01/22/2025 11:33 AM CDT) Blood No Phlebotomy Charged / Unknown 01/22/2025 11:33 AM CDT 01/22/2025 11:48 AM CDT Carlos Ross MD CHEMISTRY ORDERABLES Final Result [facility] [address] [place] [address] * BLUE TOP TUBE (01/22/2025 11:33 AM CDT) Blood No Phlebotomy Charged / Unknown 01/22/2025 11:33 AM CDT 01/22/2025 11:48 AM CDT Carlos Ross MD HEMATOLOGY ORDERABLES Katelyn l Result [facility] [address] [place] [address] * CULTURE, BLOOD (01/22/2025 11:33 AM CDT) Only the most recent of2 resultswithin the time period is included. CULTURE RESULTS ANAEROBIC GRAM-POSITIVE BACILLUS 01/29/2025 11:33 AM CDT [facility] Comment:UNABLE TO FURTHER ID ENTIFY GRAM STAIN 01/29/2025 11:33 AM CDT [facility] Comment: anaerobic bottle positive after 2 days 19 hours and 39 minutes Blood culture gram stain read at 17:31 CDT on 01/25/25 by [facility] Site: not given Culture BLOOD SPECIMEN / Unknown Venipuncture / Unknown 01/22/2025 11:33 AM CDT 01/22/2025 11:46 AM CDT Carlos Ross MD MICROBIOLOGY - GENERAL ORD ERABLES Final Result [facility] [address] [place] [address], * (ABNORMAL) CMP (COMPREHENSIVE METABOLIC PANEL) (01/22/2025 11:33 AM CDT) SODIUM 135(L) 136 - 145 mmol/L 01/22/2025 12:11 PM CDT [facility] POTASSIUM 4.4 3.5 - 5.1 mmol/L 01/22/2025 12:11 PM CDT [facility] CHLORIDE 104 98 - 107 mmol/L 01/22/2025 12:11 PM CDT [facility] CO2, VENOUS 21(L) 22 - 30 mmol/L 01/22/2025 12:11 PM CDT [facility] ANION GAP 14.4 <18.0 mmol/L 01/22/2025 12:11 PM CDT [facility] GLUCOSE 238(H) 70 - 99 mg/dL 01/22/2025 12:11 PM CDT [facility] BUN 25(H) 10 - 20 mg/dL 01/22/2025 12:11 PM T [facility] CREATININE, BLOOD 1.70(H) 0.60 - 1.00 mg/dL 01/22/2025 12:11 PM CDT [facility] BUN/CREATININE RATIO 15 12 - 20 ratio 01/22/2025 12:11 PM CDT [facility] TOTAL PROTEIN 6.7 6.0 - 8.0 g/dL 01/22/2025 12:11 PM CDT [facility] ALBUMIN 3.9 3.5 - 5.0 g/dL 01/22/2025 12:11 PM CDT [facility] A/G RATIO 1.4 1.0 - 2.2 01/22/2025 12:11 PM CDT [facility] CALCIUM 8.5(L) 8.7 - 10.5 mg/dL 01/22/2025 12:11 PM CDT [facility] T BILI 0.7 0.2 - 1.2 mg/dL 01/22/2025 12:11 PM CDT [facility] SGOT (AST) 18 <43 U/L 01/22/2025 12:11 PM CDT [facility] SGPT (ALT) 11 <56 U/L 01/22/2025 12:11 PM CDT [facility] ALKALINE PHOSPHATASE 114 40 - 150 U/L 01/22/2025 12:11 PM CDT [facility] GFR, ESTIMATED 32(L) >=60 01/22/2025 12:11 PM CDT [facility] Comment: Creatinine Clearance is the preferred criteria for selecting drug dose adjustments in renally impaired patients. The GFR is provided as additional pertinent clinical information. GFR is reported in mL/min/1.73 sq m. Calculation based on the Chronic Kidney Disease Epidemiology Collaboration (CKD- EPI) equation refit without adjustment for race. GFR, EST. 36(L) >=60 025 12:11 PM CDT [facility] GFR, EST. NONAFRICAN 30(L) >=60 01/22/2025 12:11 PM CDT [facility] Blood Venipuncture / Unknown 01/22/2025 11:33 AM CDT 01/22/2025 11:46 AM CDT us Carlos Ross MD CHEMISTRY ORDERABLES Final Result [facility] [address] [place] [address] * EKG 12 LEAD (01/22/2025 11:25 AM CDT) Ventricular Rate 119 BPM EXTERNAL EKG Atrial Rate 119 BPM EXTERNAL EKG P-R Interval 168 ms EXTERNAL EKG QRS Duration 74 ms EXTERNAL EKG Q-T Duration 306 ms EXTERNAL EKG QTC CALCULATION 430 ms EXTERNAL EKG P [place] 34 degrees EXTERNAL EKG R [place] -19 degrees EXTERNAL EKG T [place] 56 degrees EXTERNAL EKG 01/22/2025 11:2 5 AM CDT Impressions EXTERNAL EKG - 01/22/2025 4:33 PM CDT Sinus tachycardia Low voltage QRS Inferior infarct , age undetermined Possible Anterolateral infarct , age undetermined Abnormal ECG When compared with ECG of 21-MAY-2019 20:06, No significant change was found ~ Confirmed by GENE VANCE ([id number]) on 01/22/2025 4:33:55 PM Narrative Procedure Note Gene Vance MD - 01/22/2025 IMPRESSION: Sinus tachycardia Low voltage QRS Inferior infarct , age undetermined Possible Anterolateral infarct , age undetermined Abnormal ECG When compared with ECG of 21-MAY-2019 20:06, No significant change was found ~ Confirmed by GENE VANCE ([id number]) on 01/22/2025 4:33:55 PM us Carlos Ross MD IMG ECG ORDERABLES Final R esult EXTERNAL EKG * EKG SCAN (01/22/2025 12:00 AM CDT) 01/22/2025 us Provider Scan IMG ECG ORDERABLES Final Result Performing Organization Address City/[facility] Co de Phone Number RESULTING AGENCY from Last 3 Months Insurance MEDICARE C [employer] MEDICAID [place] Advance Directives * Full Code (Latest Code Status on File) Date Activated Date Inactivated Comments 01/22/2025 1:59 PM CPR-Full Treatm ent: FULL ARREST: Attempt Resuscitation/CPR wit intubation and mechanical ventilation. PRE-ARREST: Use entire range of life support measures to stabilize the patient. Care Teams Land Classifier Relationship Specialty Start Date End Date Wiley Causey MD PCP - General Family Medicine 06/28/22
--- OUTSIDE RECORDS SUMMARY | 2025-03-05 08:20 | XMS_ITS | Clinical Summary ---
Author Organization [facility] Facility Address [address] [address] Care Team Providers Care State Pilot Name Role Phone Wiley Causey MD Primary Care Provider [phone] Allergies Active Allergy Reactions Criticality Noted Date [...] Comments Blood Pressure 132/62 09/15/2021 2:23 PM SOUND INSTALLATION WORKER Pulse 93 06/16/2021 1:49 PM SOUND INSTALLATION WORKER Temperature 36.4 C (97.6 F) 09/15/2021 2:23 PM SOUND INSTALLATION WORKER Respiratory Rate 18 09/15/2021 2:23 PM SOUND INSTALLATION WORKER Oxygen Saturation 98% 09/15/2021 2:23 PM SOUND INSTALLATION WORKER Inhaled Oxygen Concentration - - Weight 101 kg (223 lb) 09/15/2021 2:23 PM SOUND INSTALLATION WORKER Height 157.5 cm (5' 2) 09/15/2021 2:23 PM SOUND INSTALLATION WORKER Body Mass Index 40.79 09/15/2021 2:23 PM SOUND INSTALLATION WORKER Plan of Treatment Health Maintenance Due Date [...] Comments HEMOGLOBIN A1C Routine 07/01/2020 11:00 AM SOUND INSTALLATION WORKER from Last 3 Months or Most Recently Relevant to Health Maintenance Results * (ABNORMAL) Hemoglobin A1c (07/01/2020 11:00 AM SOUND INSTALLATION WORKER) Hemoglobin A1C 6.3(H) <5.7 % of total [...] diabetes for children. 07/01/2020 11:0 0 AM SOUND INSTALLATION WORKER us Hay Jerez DO LAB BLOOD ORDERABLES Final R esult [facility] from Last 3 Months or Most Recently Relevant to Health Maintenance Insurance [employer] Medicare Medicaid [place] Care Teams State Pilot Relationship Specialty Start Date End Date Wiley Causey MD [address] [place] [address] PCP - General Family Medicine 06/17/21
[2025-03-07 23:08] LABS: Calprotectin, Fecal 449 ug/g (0-120)
[2025-03-08 13:08] LABS: Pancreatic Elastase, Fecal 788 (>200)
== END 2025-03-05 08:04 | disposition home or self-care (01) ==
LOC: ANHBWCLAB 08:04
PROVIDERS: PCP Nurse Practitioner Adult Health; Visit Provider Nurse Practitioner Family
DX: R19.7 Diarrhea, unspecified (principal); Z87.19 Personal history of other diseases of the digestive system
CPT/HCPCS: 82653; 83993; 87045; 87046; 87427

== ENCOUNTER 2025-03-06 08:16 | Outpatient (CLI) | payer MEDICARE, MEDICAID, SELFPAY ==
--- OUTSIDE RECORDS SUMMARY | 2025-03-06 08:25 | XMS_ITS | Clinical Summary ---
Author Organization [facility] Address [address] [place] [address] Care Team Providers Care Mechanical Systems Designer Name Role Phone Angel Cottrell DO Primary Care Provider [phone] Allergies Active Allergy Reactions Criticality Noted Date [...] mouth daily Monthly infusion Active vit D3-vit G-[id number] s [id number] owno-daw-sa-mg tablet Take by mouth Active ergocalciferol (VITAMIN [...] - continue medication and follow up with Senior Education Specialist. MADDY (obstructive sleep apnea) 03/20/2020 Type 2 [...] on file Legal Sex Female 8:[address]IVER Gender Identity Not on file Sexual Orientation [...] 2014. Non-HDL Cholesterol 137 mg/dL [facility] Comment: Interpretive Data Optimal Less than 130 mg/dL Low Risk 130 - 159 mg/dL Moderate Risk 160 - 189 mg/dL High Risk Greater than or equal to 190 mg/dL Current interpretive data was last revised on 2014. Blood specimen (specimen) 03/29/2017 7:10 AM CDT 03/29/2017 9:40 AM CDT Sheldon Santos MD LAB BLOOD ORDERABLES Final Result [facility] [address] [facility] [place] [address] from Last 3 Months or Most Recently Relevant to Health Maintenance Insurance [employer] CHOICE MEDICARE PPO IDPA [facility] CHOICE MEDICARE O [employer]PA [employer] MEDICARE HMO Care Teams Mechanical Systems Designer Relationship Specialty Start Date End Date Berkenbile, Jaime., DO PCP - General Family Medicine 03/11/20
--- OUTSIDE RECORDS SUMMARY | 2025-03-06 08:25 | XMS_ITS | Clinical Summary ---
Author Organization [facility] Address [address] [place] [id number] Phone Care Team Providers Care Rn Registry Name Role Phone Wiley Causey MD Primary Care Provider [phone] Allergies Active Allergy Reactions Criticality Noted Date [...] - continue medication and follow up with Job Honer. Obstructive sleep apnea syndrome 03/20/2020 Type 2 [...] PCV) 2002 Influenza Vaccine (#1) [address] [place] [address] MEDICARE ADVANTAGE MEDICAID - [place] Care Teams Rn Registry Relationship Specialty Start Date End Date Wiley Causey MD PCP - General Family Medicine 10/05/21
--- OUTSIDE RECORDS SUMMARY | 2025-03-06 08:25 | XMS_ITS | Clinical Summary ---
Author Organization [facility] Facility Address [address] [address] Care Team Providers Care Nurse Name Role Phone Wiley Causey MD Primary Care Provider [phone] Allergies Active Allergy Reactions Criticality Noted Date [...] Comments Blood Pressure 132/62 09/15/2021 2:23 PM DIRECTOR HYDROGEN STORAGE ENGINEERING Pulse 93 06/16/2021 1:49 PM DIRECTOR HYDROGEN STORAGE ENGINEERING Temperature 36.4 C (97.6 F) 09/15/2021 2:23 PM DIRECTOR HYDROGEN STORAGE ENGINEERING Respiratory Rate 18 09/15/2021 2:23 PM DIRECTOR HYDROGEN STORAGE ENGINEERING Oxygen Saturation 98% 09/15/2021 2:23 PM DIRECTOR HYDROGEN STORAGE ENGINEERING Inhaled Oxygen Concentration - - Weight 101 kg (223 lb) 09/15/2021 2:23 PM DIRECTOR HYDROGEN STORAGE ENGINEERING Height 157.5 cm (5' 2) 09/15/2021 2:23 PM DIRECTOR HYDROGEN STORAGE ENGINEERING Body Mass Index 40.79 09/15/2021 2:23 PM DIRECTOR HYDROGEN STORAGE ENGINEERING Plan of Treatment Health Maintenance Due Date [...] Comments HEMOGLOBIN A1C Routine 07/01/2020 11:00 AM DIRECTOR HYDROGEN STORAGE ENGINEERING from Last 3 Months or Most Recently Relevant to Health Maintenance Results * (ABNORMAL) Hemoglobin A1c (07/01/2020 11:00 AM DIRECTOR HYDROGEN STORAGE ENGINEERING) Hemoglobin A1C 6.3(H) <5.7 % of total [...] diabetes for children. 07/01/2020 11:0 0 AM DIRECTOR HYDROGEN STORAGE ENGINEERING us Hay Jerez DO LAB BLOOD ORDERABLES Final R esult [facility] from Last 3 Months or Most Recently Relevant to Health Maintenance Insurance [employer] Medicare Medicaid [place] Care Teams Nurse Relationship Specialty Start Date End Date Wiley Causey MD [address] [place] [address] PCP - General Family Medicine 06/17/21
--- OUTSIDE RECORDS SUMMARY | 2025-03-06 08:25 | XMS_ITS | Clinical Summary ---
Author Organization [facility] Address [address] [address] Phone Care Team Providers Care Photocomposing Machine Operator Name Role Phone Wiley Causey MD Primary Care Provider [phone] Allergies Active Allergy Reactions Criticality Noted Date [...] 1:10 PM CDT Hospital Encounter [facility] Medical [address] [place] [phone] Carlos Ross MD Patel, Satyen V, MD Smith, Stacey Mccullough, STATISTICAL MACHINE SERVICER, RN POOL Gabe Adkins MD Colitis Discharge Disposition: Discharged [...] declined 01/22/2025 How often do you attend episcopalian or islam serv ices? Patient declined 01/22/2025 Do you belong to any clubs o r organizations such as episcopalian groups, unions, fraternal or athletic groups, or [...] medical care, and heating? Patient declined 01/22/2025 [facility] - Occupational Stress Questionnaire Answer Date [...] any time in the past 12 m [facility], were you homeless or living in a detention (including now)? Patient declined 01/22/2025 [facility] Utilities Answer Date Recorded In the past 12 months has th e electric, gas, oil, or water company threatened to shut off services in your home? Patient declined 01/22/2025 Comments No Sex and Gender Information Value Date Recorded Sex Assigned at Not on file Legal Sex Female 2:49 PM PLASTIC PRESS OPERATOR Gender Identity Not on file Sexual [...] Last 3 Months Results * (ABNORMAL) POCT Glucose (01/24/2025 11:24 AM CDT) Only the most recent of8 resultswithin the time period is included. GLUCOSE,BEDSID E POCT 184(H) 70 - 99 mg/dL 01/24/2025 11:40 AM CDT [facility] Blood 01/24/2025 11:2 4 AM CDT 01/24/2025 11:40 AM CDT us None Provider POINT OF CARE TESTING Final Resu lt [facility] [address] [place] [address] * (ABNORMAL) Hemoglobin A1C (if indicated) (01/24/2025 5:46 AM CDT) Only the most recent of2 resultswithin the time period is included. HGB-A1C 7.1(H) 4.0 - 6.0 % 01/24/2025 8:11 AM CDT [facility] Est Average Glucose 157.1 mg/dL 01/24/2025 8:11 AM CDT [facility] Blood Venipuncture / Unknown 01/24/2025 5:46 AM CDT 01/24/2025 7:09 AM CDT Narrative [facility] - 01/24/2025 8:11 AM CDT HEMOGLOBIN A1C: DIABETIC PATIENTS: WELL-CONTROLLED: 6.2 - 7.0 INTERMEDIATE WELL-CONTROLLED: 7.0 - 9.0 POORLY-CONTROLLED: >9.0 Specimens containing greater than 5% of Hemoglobin F may result in lower than expected % HbA1C results. us Stacey Masterson APRN, CNP CHEMISTRY ORDERABLES Fi nal Result [facility] [address] [place] [address] * (ABNORMAL) CBC with Auto Differential (01/24/2025 5:46 AM CDT) Only the most recent of3 resultswithin the time period is included. WBC 6.12 4.00 - 12.00 10(3)/mcL 01/24/2025 7:19 AM CDT [facility] RBC 3.47(L) 3.80 - 5.30 10(6)/mcL 01/24/2025 7:19 AM CDT [facility] HEMOGLOBIN (HGB) 9.7(L) 12.0 - 15.8 g/dL 01/24/2025 7:19 AM CDT [facility] HEMATOCRIT (HCT) 30.6(L) 36.0 - 47.0 % 01/24/2025 7:19 AM CDT [facility] MCV 88.2 82.0 - 96.0 fL 01/24/2025 7:19 AM CDT [facility] MCH 28.0 26.0 - 34.0 pg 01/24/2025 7:19 AM CDT [facility] MCHC 31.7 31.0 - 36.0 g/dL 01/24/2025 7:19 AM CDT [facility] PLATELET COUNT 146 140 - 440 10(3)/mcL 01/24/2025 7:19 AM CDT [facility] RDW 14.9 11.8 - 15.5 % 01/24/2025 7:19 AM CDT [facility] MPV 9.4(L) 9.7 - 12.4 fL 01/24/2025 7:19 AM CDT [facility] NEUTROPHILS 63.3 47.0 - 73.0 % 01/24/2025 7:19 AM CDT [facility] LYMPHOCYTES 19.3 18.0 - 42.0 % 01/24/2025 7:19 AM CDT [facility] MONOCYTES 11.3 4.0 - 12.0 % 01/24/2025 7:19 AM CDT [facility] EOSINOPHILS 5.1(H) 0.0 - 5.0 % 01/24/2025 7:19 AM CDT [facility] BASOPHILS 0.3 0.0 - 1.0 % 01/24/2025 7:19 AM CDT [facility] IMMATURE GRANULOCYTE 0.7(H) 0.0 - 0.4 % 01/24/2025 7:19 AM CDT [facility] Comment:Immature Granulocyte s includes Metamyelocytes, Myelocytes, and Promyelocytes. ABSOLUTE NEUTROPHILS 3.88 1.60 - 7.70 10(3)/mcL 01/24/2025 7:19 AM CDT [facility] ABSOLUTE LYMPHOCYTES 1.18(L) 1.30 - 3.20 10(3)/mcL 01/24/2025 7:19 AM CDT [facility] ABSOLUTE MONOCYTES 0.69 0.20 - 1.00 10(3)/mcL 01/24/2025 7:19 AM CDT [facility] ABSOLUTE EOSINOPHIL 0.31 0.00 - 0.40 10(3)/mcL 01/24/2025 7:19 AM CDT [facility] ABSOLUTE BASOPHILS 0.02 0.00 - 0.10 10(3)/mcL 01/24/2025 7:19 AM CDT [facility] ABSOLUTE IMMATURE GRANULOCYTE 0.04(H) 0.00 - 0.03 10 (3) mcL. 01/24/2025 7:19 AM CDT [facility] NRBC PER 100 WBC 0 01/25/20 7:19 AM CDT [facility] Blood Venipuncture / Unknown 01/24/2025 5:46 AM CDT 01/24/2025 7:09 AM CDT us Stacey Masterson STATISTICAL MACHINE SERVICER, RN POOL HEMATOLOGY ORDERABLES F inal Result [facility] [address] [place] [address] * (ABNORMAL) BMP with Ca, Total (01/24/2025 5:46 AM CDT) Only the most recent of2 resultswithin the time period is included. SODIUM 142 136 - 145 mmol/L 01/24/2025 7:40 AM CDT [facility] POTASSIUM 3.7 3.5 - 5.1 mmol/L 01/24/2025 7:40 AM CDT [facility] CHLORIDE 113(H) 98 - 107 mmol/L 01/24/2025 7:40 AM CDT [facility] CO2, VENOUS 22 22 - 30 mmol/L 01/24/2025 7:40 AM CDT [facility] ANION GAP 10.7 <18.0 mmol/L 01/24/2025 7:40 AM CDT [facility] GLUCOSE 139(H) 70 - 99 mg/dL 01/24/2025 7:40 AM CDT [facility] BUN 13 10 - 20 mg/dL 01/24/2025 7:40 AM CDT [facility] CREATININE, BLOOD 1.64(H) 0.60 - 1.00 mg/dL 01/24/2025 7:40 AM CDT [facility] BUN/CREATININE RATIO 8(L) 12 - 20 ratio 01/24/2025 7:40 AM CDT [facility] CALCIUM 7.8(L) 8.7 - 10.5 mg/dL 01/24/2025 7:40 AM CDT [facility] GFR, ESTIMATED 33(L) >=60 01/24/2025 7:40 AM CDT [facility] Comment: Creatinine Clearance is the preferred criteria for selecting drug dose adjustments in renally impaired patients. The GFR is provided as additional pertinent clinical information. GFR is reported in mL/min/1.73 sq m. Calculation based on the Chronic Kidney Disease Epidemiology Collaboration (CKD- EPI) equation refit without adjustment for race. GFR, EST. 37(L) >=60 025 7:40 AM CDT [facility] GFR, EST. NONAFRICAN 31(L) >=60 01/24/2025 7:40 AM CDT [facility] Blood Venipuncture / Unknown 01/24/2025 5:46 AM CDT 01/24/2025 7:09 AM CDT Stacey Masterson STATISTICAL MACHINE SERVICER, RN POOL CHEMISTRY ORDERABLES Fi nal Result Performing Organization Address [facility] Co de Phone Number [facility] [address] [place] [address] * RHYTHM STRIP (01/24/2025 12:00 AM CDT) Only the most recent of7 resultswithin the time period is included. 01/24/2025 Provider Scan IMG ECG ORDERABLES Final Result Performing Organization Address City/[facility]/ZIP Co de Phone Number RESULTING AGENCY * (ABNORMAL) Urinalysis with Reflex (01/22/2025 3:26 PM CDT) SPECIFIC GRAVITY 1.015 1.003 - 1.030 01/22/2025 3:53 PM CDT [facility] URINE PH 5.0 5.0 - 9.0 01/22/2025 3:53 PM CDT [facility] WBC ESTERASE Negative Negative 01/22/2025 3:53 PM CDT [facility] NITRITE Negative Negative 01/22/2025 3:53 PM CDT [facility] PROTEIN, RANDOM URINE 30 mg/dL(A) Negative 01/22/2025 3:53 PM CDT [facility] URINE GLUCOSE, QUAL 50 mg/dL(A) Negative 01/22/2025 3:53 PM CDT [facility] URINE KETONES Negative Negative 01/22/2025 3:53 PM CDT [facility] UROBILINOGEN Normal Normal mg/dL 01/22/2025 3:53 PM CDT [facility] URINE BLOOD Negative Negative dean/ul 01/22/2025 3:53 PM CDT [facility] URINALYSIS COLOR Yellow 01/23/20 3:53 PM CDT [facility] URINALYSIS CLARITY Slightly Cloudy 01/22/2025 3:53 PM CDT [facility] WBC (Urine) 0-5 Negative, 0-5 /hpf 01/22/2025 3:53 PM CDT [facility] URINE RBC'S 0-2 Negative, 0-2 /hpf 01/22/2025 3:53 PM CDT [facility] EPITHELIAL CELLS Moderate amount /lpf 01/22/2025 3:53 PM CDT [facility] BACTERIA, URINE Negative Negative /hpf 01/22/2025 3:53 PM CDT [facility] CASTS 1-5/LPF Finely Granular Casts(A) Negative, 0-2/lpf, 3-5/lpf, 6-10/lpf, 11-20/lpf, >20/lpf, Rare Hyaline, Few Hyaline, Moderate Hyaline, Many Hyaline, Rare Granular, Few Granular, Moderate Granular, Many Granular, Few WBC, Moderate WBC , Many WBC , Rare WBC, Rare RBC, Few RBC, Moder... /lpf 01/22/2025 3:53 PM CDT [facility] Urine URINE SPECIMEN / Unknown Non-Phlebotomy Collection / Unknown 01/22/2025 3:26 PM CDT 01/22/2025 3:32 PM CDT Result [facility] Carlos Ross MD URINE ORDERABLES Final Res ult Performing Organization Address City/[facility]/ZIP Co de Phone Number [facility] [address] [place] [address] * Lactic Acid (Lactate) (01/22/2025 3:10 PM CDT) Only the most recent of2 resultswithin the time period is included. LACTIC ACID 1.5 0.7 - 2.0 mmol/L 01/22/2025 4:09 PM CDT [facility] Blood Venipuncture / Unknown 01/22/2025 3:10 PM CDT 01/22/2025 3:16 PM CDT Result [facility] Carlos Ross MD CHEMISTRY ORDERABLES Final Result Performing Organization Address [facility] Co de Phone Number [facility] [address] [place] [address] * Critical Care (01/22/2025 2:01 PM CDT) [...] charts Care discussed with: admitting provider Result [facility] Carlos Ross MD PROCEDURE/MINOR SURGICAL O RDERABLES [...] Franchesca Cooper M.D. FT: FT Report ID: [id number] Reading Location: [place] [address] Procedure Note Franchesca Biggs MD - 01/22/2025 [...] Franchesca Cooper M.D. FT: FT Report ID: [id number] Reading Location: [id number] IMPRESSION: 1. Mild wall thickening of the [...] Negative, Error 01/22/2025 1:27 PM CDT [facility] FLU B Negative Negative 01/22/2025 1:27 PM CDT [facility] RESP SYNC VIRUS Negative Negative 1:27 PM CDT [facility] SARSCOV2 NOT DETECTED (Reference Range for this test is Not Detected) 01/22/2025 1:27 PM CDT [facility] Comment:This test was perfor med by a Reverse Site Coordinator PCR Method. Nasopharyngeal NASOPHARYNGEAL STRUCTURE / Unknown Non-Phlebotomy Collection / Unknown 01/22/2025 12:42 PM CDT 01/22/2025 12:48 PM CDT Carlos Ross MD MICROBIOLOGY - GENERAL ORD ERABLES Final Result [facility] [address] [place] [address] * Gold Top Tube (01/22/2025 11:33 AM CDT) Blood No Phlebotomy Charged / Unknown 01/22/2025 11:33 AM CDT 01/22/2025 11:48 AM CDT Carlos Ross MD CHEMISTRY ORDERABLES Final Result [facility] [address] [place] [address] * Blue Top Tube (01/22/2025 11:33 AM CDT) Blood No Phlebotomy Charged / Unknown 01/22/2025 11:33 AM CDT 01/22/2025 11:48 AM CDT Carlos Ross MD HEMATOLOGY ORDERABLES Katelyn l Result [facility] [address] [place] [address] * Blood Culture #2 (01/22/2025 11:33 AM CDT) Only the most recent of2 resultswithin the time period is included. CULTURE RESULTS ANAEROBIC GRAM-POSITIVE BACILLUS 01/29/2025 11:33 AM CDT [facility] Comment:UNABLE TO FURTHER ID ENTIFY GRAM STAIN 01/29/2025 11:33 AM CDT [facility] Comment: anaerobic bottle positive after 2 days 19 hours and 39 minutes Blood culture gram stain read at 17:31 CDT on 01/25/25 by [facility] Site: not given Culture BLOOD SPECIMEN / Unknown Venipuncture / Unknown 01/22/2025 11:33 AM CDT 01/22/2025 11:46 AM CDT Carlos Rsos MD MICROBIOLOGY - GENERAL ORD ERABLES Final Result Performing Organization Address City/[facility]/ZIP Co de Phone Number [facility] [address] [place] [address], * (ABNORMAL) CMP (Comprehensive Metabolic Panel) (01/22/2025 11:33 AM CDT) SODIUM 135(L) 136 - 145 mmol/L 01/22/2025 12:11 PM CDT [facility] POTASSIUM 4.4 3.5 - 5.1 mmol/L 01/22/2025 12:11 PM CDT [facility] CHLORIDE 104 98 - 107 mmol/L 01/22/2025 12:11 PM CDT [facility] CO2, VENOUS 21(L) 22 - 30 mmol/L 01/22/2025 12:11 PM CDT [facility] ANION GAP 14.4 <18.0 mmol/L 01/22/2025 12:11 PM CDT [facility] GLUCOSE 238(H) 70 - 99 mg/dL 01/22/2025 12:11 PM CDT [facility] BUN 25(H) 10 - 20 mg/dL 01/22/2025 12:11 PM T [facility] CREATININE, BLOOD 1.70(H) 0.60 - 1.00 mg/dL 01/22/2025 12:11 PM CDT [facility] BUN/CREATININE RATIO 15 12 - 20 ratio 01/22/2025 12:11 PM CDT [facility] TOTAL PROTEIN 6.7 6.0 - 8.0 g/dL 01/22/2025 12:11 PM CDT [facility] ALBUMIN 3.9 3.5 - 5.0 g/dL 01/22/2025 12:11 PM [facility] A/G RATIO 1.4 1.0 - 2.2 01/22/2025 12:11 PM CDT [facility] CALCIUM 8.5(L) 8.7 - 10.5 mg/dL 01/22/2025 12:11 PM T [facility] T BILI 0.7 0.2 - 1.2 mg/dL 01/22/2025 12:11 PM CDT [facility] SGOT (AST) 18 <43 U/L 01/22/2025 12:11 PM T [facility] SGPT (ALT) 11 <56 U/L 01/22/2025 12:11 PM CDT [facility] ALKALINE PHOSPHATASE 114 40 - 150 U/L 01/22/2025 12:11 PM CDT [facility] GFR, ESTIMATED 32(L) >=60 01/22/2025 12:11 PM CDT [facility] Comment: Creatinine Clearance is the preferred criteria for selecting drug dose adjustments in renally impaired patients. The GFR is provided as additional pertinent clinical information. GFR is reported in mL/min/1.73 sq m. Calculation based on the Chronic Kidney Disease Epidemiology Collaboration (CKD- EPI) equation refit without adjustment for race. GFR, EST. 36(L) >=60 025 12:11 PM CDT [facility] GFR, EST. NONAFRICAN 30(L) >=60 01/22/2025 12:11 PM CDT [facility] Blood Venipuncture / Unknown 01/22/2025 11:33 AM CDT 01/22/2025 11:46 AM CDT us Carlos Ross MD CHEMISTRY ORDERABLES Final Result [facility] [address] [place] [address] * EKG 12 LEAD (01/22/2025 11:25 AM CDT) Ventricular Rate 119 BPM EXTERNAL EKG Atrial Rate 119 BPM EXTERNAL EKG P-R Interval 168 ms EXTERNAL EKG QRS Duration 74 ms EXTERNAL EKG Q-T Duration 306 ms EXTERNAL EKG QTC CALCULATION 430 ms EXTERNAL EKG P [place] 34 degrees EXTERNAL EKG R [place] -19 degrees EXTERNAL EKG T [place] 56 degrees EXTERNAL EKG 01/22/2025 11:2 5 AM CDT Impressions EXTERNAL EKG - 01/22/2025 4:33 PM CDT Sinus tachycardia Low voltage QRS Inferior infarct , age undetermined Possible Anterolateral infarct , age undetermined Abnormal ECG When compared with ECG of 21-MAY-2019 20:06, No significant change was found ~ Confirmed by GENE VANCE ([id number]) on 01/22/2025 4:33:55 PM Narrative Procedure Note Gene Vance MD - 01/22/2025 IMPRESSION: Sinus tachycardia Low voltage QRS Inferior infarct , age undetermined Possible Anterolateral infarct , age undetermined Abnormal ECG When compared with ECG of 21-MAY-2019 20:06, No significant change was found ~ Confirmed by GENE VANCE ([id number]) on 01/22/2025 4:33:55 PM us Carlos Ross [...] measures to stabilize the patient. Care Teams Photocomposing Machine Operator Relationship Specialty Start Date End Date Wiley Causey MD PCP - General Family Medicine 06/28/22
--- OUTSIDE RECORDS SUMMARY | 2025-03-06 08:25 | XMS_ITS | Clinical Summary ---
Author Organization [facility] Jeffery payan [facility] Address [address] [place] [address] Care Team Providers Care Fire Extinguisher Mechanic Name Role Phone Wiley Causey MD Primary Care Provider [phone] Allergies Active Allergy Reactions Criticality Noted Date Comments Atorvastatin Hives High 12/03/2020 Budesonide-Formoterol Muscle Pain Medium 11/26/2020 Ohpifhk-Mrm-Sgq Reductase Inhibitors Other (See Comments) 04/28/2021 Tramadol [...] mg by mouth. Active Vit D3 & Z-Hjfhzzimb-Nd ps [id number] cypj-sex-po-mg Tablet Take by mouth. Activ e omeprazole [...] Abstract 12/26/2024 1:00 PM CDT Office Visit [facility] Oncology and Hematology [facility] [address] [place] [address] Gabo Jiang MD Chronic anemia (Primary Dx) 12/25/2024 Orders Only [facility] Oncology and Hematology [facility] [address] [place] [address] Gabo Jiang MD 12/18/2024 External Device Data [...] st Contact Info) Description 06/27/2025 1:15 PM HEAVY DUTY TRUCK MECHANIC Office Visit [facility] Oncology and Hematology [facility] [address] [facility] [address] [place] [address] Gabo Jiang MD [address] [facility] [address] [place] [address] Health Maintenance Due Date Last [...] Resu lt from Last [address] [place] [address] [place] [address] [facility] Address: [address] [place] [phone] [place] Care Teams Fire Extinguisher Mechanic Relationship Specialty Start Date End Date Wiley Causey MD PCP - General Family Practice 08/04/21
[2025-03-06 18:31] LABS: Hematocrit 37.4 % (37.0-47.0); Hemoglobin 11.6 g/dL (12.0-15.0); Mean Corpuscular HGB Conc 31.0 g/dl (32-36); Mean Corpuscular Hemoglobin 28.2 pg (26-34); Mean Corpuscular Volume 90.8 fl (80-100); Platelet Count Result 244 k/mm3 (150-375); Red Blood Count 4.12 M/mm3 (4.2-5.4); White Blood Count 12.9 K/mm3 (4.5-10.0)
[2025-03-06 18:39] LABS: Total Protein Urine Random 7 mg/dL; Ur Ttl Prot Creatinine Ratio 0.05 mg/mg (0-0.20)
[2025-03-06 19:07] LABS: Albumin Level 4.2 g/dL (3.5-5.1); Anion Gap 10 mmol/L (4-12); Blood Urea Nitrogen 22 mg/dL (7-17); Calcium 9.5 mg/dL (8.4-10.2); Carbon Dioxide 25 mmol/L (22-30); Chloride 104 mmol/L (98-107); Estimated Glomerular Filt Rate 32; Glucose 126 mg/dL (65-110); Potassium 4.5 mmol/L (3.4-5.0); Sodium 139 mmol/L (137-145)
[2025-03-06 19:09] LABS: Hemoglobin A1C 7.0 % (<5.7)
[2025-03-06 19:16] LABS: Alanine Aminotransferase 18 U/L (6-35); Albumin Level 4.0 g/dL (3.5-5.1); Alkaline Phosphatase 98 U/L (38-126); Anion Gap 9 mmol/L (4-12); Aspartate Amino Transferase 44 U/L (14-36); Bilirubin,Total 0.6 mg/dL (0.2-1.3); Blood Urea Nitrogen 21 mg/dL (7-17); Calcium 9.5 mg/dL (8.4-10.2); Carbon Dioxide 25 mmol/L (22-30); Chloride 104 mmol/L (98-107); Cholesterol 190 mg/dL (0-200); Estimated Glomerular Filt Rate 33; Glucose 125 mg/dL (65-110); HDL Direct 33 mg/dL; Potassium 4.3 mmol/L (3.4-5.0); Sodium 138 mmol/L (137-145); Total Protein 7.1 g/dL (6.3-8.2); Triglycerides 294 mg/dL (<150); Uric Acid 4.9 mg/dL (2.5-7.5)
[2025-03-06 20:06] LABS: Vitamin B12 > 1000.0 pg/mL (239-931)
== END 2025-03-06 08:17 | disposition home or self-care (01) ==
LOC: ANHBWCLAB 08:18
PROVIDERS: PCP Nurse Practitioner Adult Health; Visit Provider Internal Medicine Nephrology
DX: I12.9 Hypertensive chronic kidney disease with stage 1 through stage 4 chronic kidney disease, or unspecified chronic kidney disease (principal); E11.22 Type 2 diabetes mellitus with diabetic chronic kidney disease; N18.32 Chronic kidney disease, stage 3b; N20.0 Calculus of kidney
CPT/HCPCS: 36415; 80053; 80061; 80069; 82306; 82565; 82570; 82607; 83036; 84156; 84550; 85027

== ENCOUNTER 2025-05-15 01:33 | Day surgery (SDC) | payer MEDICARE, MEDICAID, SELFPAY ==
--- OUTSIDE RECORDS SUMMARY | 2025-05-15 01:37 | XMS_ITS | Clinical Summary ---
Author Organization [facility] Address [address] [address] Phone Care Team Providers Care Tire Service Technician Name Role Phone Wiley Causey MD Primary Care Provider [phone] Allergies Active Allergy Reactions Criticality Noted Date [...] (gastroesophageal reflux disease) Diverticula, colon Diabetes Asthma Family History Medical History Relation Name Comments [...] declined 01/22/2025 How often do you attend christianity or anabaptist serv ices? Patient declined 01/22/2025 Do you belong to any clubs o r organizations such as christianity groups, unions, fraternal or athletic groups, or [...] medical care, and heating? Patient declined 01/22/2025 [facility] - Occupational Stress Questionnaire Answer Date Recorded [...] any time in the past 12 m [facility], were you homeless or living in a prison (including now)? Patient declined 01/22/2025 [facility] Utilities Answer Date Recorded In the past 12 months has th e electric, gas, oil, or water company threatened to shut off services in your home? Patient declined 01/22/2025 Comments No Sex and Gender Information Value Date Recorded Sex Assigned at Not on file Legal Sex Female 2:49 PM ONCOLOGY ADMIN Gender Identity Not on file Sexual Orientation [...] PPSV23, PCV20, or PCV21) 09/12/2017 07/18/2017, 04/05/2017 Medicare Initial AWV [id number] 07/18/2019 Colonoscopy 09/27/2023 09/26/2018 Colorectal Cancer Screening 09/27/2023 Influenza Immunization (#1) 2025 SARS-COV-2 Immunization ( season) 2025 Diabetes: Hemoglobin A1c 07/27/2025 025, 01/23/2025, [...] Priority Date/Time Associated Diagnosis Comments HEMOGLOBIN A1C W/ ESTIMATED GLUCOSE Routine 01/24/2025 5:46 AM CDT CMP (COMPREHENSIVE METABOLIC PANEL) STAT 01/22/2025 11:33 AM CDT from Last 3 Months or Most Recently Relevant to Health Maintenance Results * (ABNORMAL) Hemoglobin A1C (if indicated) (01/24/2025 5:46 AM CDT) HGB-A1C 7.1(H) 4.0 - 6.0 % 01/24/2025 8:11 AM CDT [facility] Est Average Glucose 157.1 mg/dL 01/24/2025 8:11 AM CDT [facility] Blood Venipuncture / Unknown 01/24/2025 5:46 AM CDT 01/24/2025 7:09 AM CDT Narrative [facility] - 01/24/2025 8:11 AM CDT HEMOGLOBIN A1C: DIABETIC PATIENTS: WELL-CONTROLLED: 6.2 - 7.0 INTERMEDIATE WELL-CONTROLLED: 7.0 - 9.0 POORLY-CONTROLLED: >9.0 Specimens containing greater than 5% of Hemoglobin F may result in lower than expected % HbA1C results. us Stacey Masterson REPLANTING MACHINE CREWMAN, SPORTS NUTRITIONIST CHEMISTRY ORDERABLES Fi nal Result [facility] [address] [place] [address] * (ABNORMAL) CMP (Comprehensive Metabolic Panel) (01/22/2025 11:33 AM CDT) SODIUM 135(L) 136 - 145 mmol/L 01/22/2025 12:11 PM CDT [facility] POTASSIUM 4.4 3.5 - 5.1 mmol/L 01/22/2025 12:11 PM CDT [facility] CHLORIDE 104 98 - 107 mmol/L 01/22/2025 12:11 PM T [facility] CO2, VENOUS 21(L) 22 - 30 mmol/L 01/22/2025 12:11 PM CDT [facility] ANION GAP 14.4 <18.0 mmol/L 01/22/2025 12:11 PM CDT [facility] GLUCOSE 238(H) 70 - 99 mg/dL 01/22/2025 12:11 PM CDT [facility] BUN 25(H) 10 - 20 mg/dL 01/22/2025 12:11 PM T [facility] CREATININE, BLOOD 1.70(H) 0.60 - 1.00 mg/dL 01/22/2025 12:11 PM T [facility] BUN/CREATININE RATIO 15 12 - 20 ratio 01/22/2025 12:11 PM CDT [facility] TOTAL PROTEIN 6.7 6.0 - 8.0 g/dL 01/22/2025 12:11 PM T [facility] ALBUMIN 3.9 3.5 - 5.0 g/dL 01/22/2025 12:11 PM [facility] A/G RATIO 1.4 1.0 - 2.2 01/22/2025 12:11 PM [facility] CALCIUM 8.5(L) 8.7 - 10.5 mg/dL 01/22/2025 12:11 PM T [facility] T BILI 0.7 0.2 - 1.2 mg/dL 01/22/2025 12:11 PM T [facility] SGOT (AST) 18 <43 U/L 01/22/2025 12:11 PM T [facility] SGPT (ALT) 11 <56 U/L 01/22/2025 12:11 PM CDT [facility] ALKALINE PHOSPHATASE 114 40 - 150 U/L 01/22/2025 12:11 PM CDT [facility] GFR, ESTIMATED 32(L) >=60 01/22/2025 12:11 PM CDT [facility] Comment: Creatinine Clearance is the preferred criteria for selecting drug dose adjustments in renally impaired patients. The GFR is provided as additional pertinent clinical information. GFR is reported in mL/min/1.73 sq m. Calculation based on the Chronic Kidney Disease Epidemiology Collaboration (CKD- EPI) equation refit without adjustment for race. GFR, EST. 36(L) >=60 025 12:11 PM CDT [facility] GFR, EST. NONAFRICAN 30(L) >=60 01/22/2025 12:11 PM CDT [facility] Blood Venipuncture / Unknown 01/22/2025 11:33 AM CDT 01/22/2025 11:46 AM CDT Carlos Ross MD CHEMISTRY ORDERABLES Final Result [facility] [address] [place] [address] from Last 3 Months or Most Recently Relevant to Health Maintenance Insurance MEDICARE C [employer]NA [place]ID [place] Advance Directives * Full Code (Latest Code Status on File) Date Activated Date Inactivated Comments 01/22/2025 1:59 PM CPR-Full Treatm ent: FULL ARREST: Attempt Resuscitation/CPR wit intubation and mechanical ventilation. PRE-ARREST: Use entire range of life support measures to stabilize the patient. Care Teams Tire Service Technician Relationship Specialty Start Date End Date Wiley Causey MD PCP - General Family Medicine 06/28/22
--- OUTSIDE RECORDS SUMMARY | 2025-05-15 01:37 | XMS_ITS | Clinical Summary ---
Author Organization [facility] Facility Address [address] [address] Care Team Providers Care Refinery Operator Polymerization Plant Name Role Phone Wiley Causey MD Primary Care Provider [phone] Allergies Active Allergy Reactions Criticality Noted Date [...] Comments Blood Pressure 132/62 09/15/2021 2:23 PM HAIR SPRING WINDER Pulse 93 06/16/2021 1:49 PM HAIR SPRING WINDER Temperature 36.4 C (97.6 F) 09/15/2021 2:23 PM HAIR SPRING WINDER Respiratory Rate 18 09/15/2021 2:23 PM HAIR SPRING WINDER Oxygen Saturation 98% 09/15/2021 2:23 PM HAIR SPRING WINDER Inhaled Oxygen Concentration - - Weight 101 kg (223 lb) 09/15/2021 2:23 PM HAIR SPRING WINDER Height 157.5 cm (5' 2) 09/15/2021 2:23 PM HAIR SPRING WINDER Body Mass Index 40.79 09/15/2021 2:23 PM HAIR SPRING WINDER Plan of Treatment Health Maintenance Due Date [...] Comments HEMOGLOBIN A1C Routine 07/01/2020 11:00 AM HAIR SPRING WINDER from Last 3 Months or Most Recently Relevant to Health Maintenance Results * (ABNORMAL) Hemoglobin A1c (07/01/2020 11:00 AM HAIR SPRING WINDER) Hemoglobin A1C 6.3(H) <5.7 % of total [...] diabetes for children. 07/01/2020 11:0 0 AM HAIR SPRING WINDER us Hay Jerez DO LAB BLOOD ORDERABLES Final R esult [facility] from Last 3 Months or Most Recently Relevant to Health Maintenance Insurance [employer] Medicare Medicaid [place] Care Teams Refinery Operator Polymerization Plant Relationship Specialty Start Date End Date Wiley Causey MD [address] [place] [address] PCP - General Family Medicine 06/17/21
--- OUTSIDE RECORDS SUMMARY | 2025-05-15 01:37 | XMS_ITS | Clinical Summary ---
Author Organization [facility] Jeffery payan [facility] Address [address] [place] [address] Care Team Providers Care Net C Developer Name Role Phone Wiley Causey MD Primary Care Provider [phone] Allergies Active Allergy Reactions Criticality Noted Date Comments Atorvastatin Hives High 12/03/2020 Budesonide-Formoterol Muscle Pain Medium 11/26/2020 Aultcyr-Gvr-Twi Reductase Inhibitors Other (See Comments) 04/28/2021 Tramadol [...] mg by mouth. Active Vit D3 & R-Tjnybxjhk-Cp ps [phone] erhc-anh-ok-mg Tablet Take by mouth. Activ e omeprazole [...] st Contact Info) Description 06/27/2025 1:15 PM FORMS BUILDER Office Visit [facility] Oncology and Hematology - [place] [address] [facility] [address] [place] [address] Gabo Jiang MD [address] [address] [place] [address] Health Maintenance Due Date Last [...] Flex Sig/CT Colonography Q 5 years 1997 RSV VACCINE (60+ or ) (1 - Risk 50-74 years 1-dose series) 2002 ZOSTER VACCINE (1 of 2) 2002 OSTEOPOROSIS SCREENING 2017 DIABETES HBA1C Q 6 MONTHS 12/30/2020 07/01/2020, 08/2019 INFLUENZA VACCINE (#1) 2025 Insurance [facility] MEDICAID [place] Care Teams Net C Developer Relationship Specialty Start Date End Date Wiley Causey MD PCP - General Family Practice 08/04/21
--- OUTSIDE RECORDS SUMMARY | 2025-05-15 01:37 | XMS_ITS | Clinical Summary ---
Author Organization [facility] Address [address] [place] [address] Care Team Providers Care Disassembler Product Name Role Phone Angel Cottrell DO Primary Care Provider [phone] Allergies Active Allergy Reactions Criticality Noted Date [...] mouth daily Monthly infusion Active vit D3-vit F-fjoniyklr-phj s [phone] bzdo-qkp-we-mg tablet Take by mouth Active ergocalciferol (VITAMIN [...] - continue medication and follow up with Sumo Wrestler. 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 Blood specimen (specimen) 03/29/2017 7:10 AM CDT 03/29/2017 9:40 AM CDT us Sheldon Santos MD LAB BLOOD ORDERABLES Final Result JOSHUA MACIEL (EMANUEL) 1 [facility] [place] [address] from Last 3 Months or Most Recently Relevant to Health Maintenance Insurance HUMANA CHOICE MEDICARE PPO [facility] PPO IDPA HUMANA MEDICARE O Care Teams Disassembler Product Relationship Specialty Start Date End Date Angel Cottrell DO PCP - General Family Medicine 03/11/20
--- OUTSIDE RECORDS SUMMARY | 2025-05-15 01:37 | XMS_ITS | Clinical Summary ---
Author Organization [facility] Address [address] [place] [id number] Phone Care Team Providers Care Steam Presser Name Role Phone Wiley Causey MD Primary Care Provider [phone] Allergies Active Allergy Reactions Criticality Noted Date [...] - continue medication and follow up with Workers Compensation Claims Assistant. Obstructive sleep apnea syndrome 03/20/2020 Type 2 [...] PCV) 2002 Influenza Vaccine (#1) [address] [place] [address] [address] [place] [address] MEDICARE ADVANTAGE MEDICAID - [place] Care Teams Steam Presser Relationship Specialty Start Date End Date Wiley Causey MD PCP - General Family Medicine 10/05/21
[2025-05-15 06:27] VITALS: BMI 35.9
[2025-05-15 06:30] VITALS: BP 147/65; PULSE 96; RESP 16; TEMP 37.1; O2SAT 97
[2025-05-15] MEDS: LACTATED RINGERS 1,000 ML 150 ML IV CONT (06:41)
--- NOTE | 2025-05-15 06:48 | WPDANESEPPF ---
Anes - Initial Pre Proc Eval Procedure: Operation Date: 05/15/25 07:30 Proposed Procedures p EGD & Diagnostic Colonoscopy - Pramod Miller MD Date/Time: 05/15/25 06:48 Surgeon: Pramod Miller MD Pre Op Diagnosis: Melena, GERD, Montgomery's esophagus w/o dysplasia Patient Data Age: 75 Gender: F Height: 1.57 m Weight: 89 kg Last Vital Signs Temp 37.1 C 05/15/25 06:30 Pulse 96 05/15/25 06:30 Resp 16 05/15/25 06:30 BP 147/65 H 05/15/25 06:30 Pulse Ox 97 05/15/25 06:30 O2 Del Method Room Air 05/15/25 06:30 Allergies Allergy/AdvReac Type Severity Reaction Status Date / Time tramadol Allergy Severe Hives Verified 05/15/25 06:24 atorvastatin AdvReac Severe Nausea and Verified 05/15/25 06:24 Vomiting pravastatin AdvReac Intermediate Nausea and Verified 05/15/25 06:24 Vomiting budesonide AdvReac Mild Muscle Verified 05/15/25 06:24 Spasms formoterol AdvReac Mild Muscle Verified 05/15/25 06:24 Spasms Home Medications ?Medication ?Instructions ?Recorded ?Confirmed ?Type allopurinol 300 mg tablet 300 mg PO DAILY 10/27/21 05/15/25 History mecobalamin (vitamin B12) 10,000 10,000 mcg subcut MONTHLY 08/24/23 05/15/25 History mcg solution for injection blood sugar diagnostic (Accu-Chek #100 strips 11/28/23 05/15/25 Rx Iwona Plus test strips) blood sugar diagnostic #100 ea 11/29/23 05/15/25 Rx omega 5-zda-lzw-fish oil 1,000 mg 3 cap PO DAILY 02/16/24 05/15/25 History (120 mg-180 mg) capsule (Fish Oil) betamethasone dipropionate 0.05 % 1 applic topical BID PRN rash #45 02/23/24 05/03/25 Rx topical cream grams blood-glucose meter (Blood Glucose #1 ea 02/23/24 05/15/25 Rx Monitoring kit) albuterol sulfate 90 mcg/actuation 1 - 2 inh inhalation Q4-6H PRN 06/07/24 05/15/25 Rx aerosol inhaler shortness of breath or wheezing #8.5 grams pantoprazole 40 mg tablet,delayed See Rx Instructions .Route 10/29/24 05/15/25 Rx release .COMPLEX #90 tabs semaglutide 1 mg/dose (4 mg/3 mL) See Rx Instructions .Route 10/29/24 05/15/25 Rx subcutaneous pen injector (Ozempic) .COMPLEX #9 mL losartan 50 mg-hydrochlorothiazide 1 tablet PO DAILY #30 tabs 01/11/25 05/15/25 Rx 12.5 mg tablet blood sugar diagnostic (Accu-Chek #100 strips 04/17/25 05/15/25 Rx Guide test strips) lancets (Accu-Chek Softclix #100 ea 04/17/25 05/15/25 Rx Lancets) Laboratory Tests 05/15/25 06:21 POC Capillary Glucose 124 H mg/dl (65-105) Patient hx anesthesia problems: none Family hx anesthesia problems: none Results Review: All pre-operative results and documents have been reviewed as part of the pre-operative evaluation. [facility] Past Medical History Medical History Lower abdominal pain Montgomery esophagus Increased PTH level Gout Chronic kidney disease, stage IV (severe) Diastolic dysfunction Obstructive sleep apnea on CPAP Gastroesophageal reflux disease Non-insulin dependent type 2 diabetes mellitus Anemia Screening for breast cancer Generalized osteoarthritis of multiple sites Iron deficiency anemia Psoriasis Kidney disease Wears glasses Claustrophobia Degenerative arthritis of left knee Chronic neck pain MRI of cervical spine demonstrated lzmw-qv-wkvlomtj cervical spondylosis C5 through C7, left foraminal narrowing and moderate right foraminal narrowing C5-C6, spinal stenosis with minimal flattening along the ventral cord C5 through C7. Morbid obesity Incontinence Asthma Hypercholesterolemia Hypertension Surgical History Surgical History History of esophageal dilatation History of bilateral cataract extraction History of colonoscopy History of cholecystectomy Status post cystoscopy with ureteral stent placement History of lithotripsy History of appendectomy History of total abdominal hysterectomy and bilateral salpingo-oophorectomy due to dysfunctional uterine bleeding History of bilateral tubal ligation Family History Family History Grandparent Acute myocardial infarction Family history of malignant neoplasm Carcinoma of colon Mother Family history of liver disease Mother who in her late 50s of cirrhosis related to hepatitis C Diabetes mellitus Father Leukemia father who in his 60s of leukemia. Heart disease Sibling Heart disease Social History Social History Social History: She lives with a roommate in [place]. 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 She then went on disability when she had a nervous breakdown. She has 3 children who are all healthy. She is a former smoker and smoked at least 2 packs of cigarettes per day from the age of 17 to age 57. She rarely drinks alcohol and only in moderation. Surrogate decision maker: Aarti Gupta (daughter). Code status: Full code. Years smoked: 40 Smoking status: Former smoker Tobacco type: cigarettes Smoking end date: 07/18/06 Alcohol intake: never Alcohol use details: 1 per month Substance use: never Substance use type: does not use Do You Feel Safe in your Home?: Yes Lack of Transportation: No Lack of Food: Never True Current Housing: I Have Housing Concerned About Future Housing: No Difficulty Paying Gas/Electric Bills: No Difficulty Paying for Meds: No Currently Unemployed: No Education: High School Diploma/GED Difficulty w/ Childcare or Family Care: No Living arrangements: with roommate(s) Occupation/Education: retired Gender identity (if verbalized by the patient): Female Spiritual care concerns: No Anes - Eval Final PreProcedure Day of Procedure 05/15/25 06:48 Patient weight: obese Heart: regular rate and rhythm Lungs: decreased breath sounds Airway: Mallampati scale class II Neurological: alert and oriented Last oral intake: >/= 8 hours ASA classification: III Emergent: no Anesthetic plan: proceed Anesthesia type and monitoring: general GIVS and standard monitoring Results Review: All pre-operative results and documents have been reviewed as part of the pre-operative evaluation. Informed Consent: The patient's anesthetic plan and its attendant risks and benefits were discussed with the patient/family/POA. Questions were solicited and answers provided to the satisfaction of the patient/family/POA.
--- NOTE | 2025-05-15 07:30 | WPDHPUPDATE1 ---
History and Physical Update Update Date/Time: 05/15/25 07:30 History and Physical has been reviewed, including an updated exam of the patient. There are NO changes in the patient's condition. Risks, benefits, and alternatives have been discussed and questions answered. Patient agrees to proceed with procedure.
--- NOTE | 2025-05-15 07:48 | SUR.OPER ---
EGD ended at 741, Colon began at 747
--- NOTE | 2025-05-15 07:54 | S_PTH ---
PATIENT: Edith Mayo LOC: [facility] Roque#:[id number] AGE/SX: 75/F ROOM: RE05/15/[address]: Pramod Miller MD : 1950 BED: DIS: 05/15/2025 SPEC #: [id number] RECD: 05/15/25 10:27 STATUS: MIGDALIA REFerny #: [id number] TITI: 05/15/25 07:[address]: Pramod Miller DEPT: [facility] Surgical RECD BY: Toña Quigley ENTERED: 05/15/25 10:29 SP TYPE: Surgical OTHR DR: Tanya Murray APRN Tissues: A - Small Bowel Bx B - Gastric Biopsy C - Esophageal Biopsy D - Colon Biopsy Procedures: Hematoxylin and Eosin Stain Gross and Microscopic Level 4
[2025-05-15 08:10] VITALS: BP 126/45; PULSE 94; RESP 22; O2SAT 97
[2025-05-15 08:20] VITALS: BP 112/42; PULSE 95; RESP 19; O2SAT 97
[2025-05-15 08:30] VITALS: BP 133/71; PULSE 97; RESP 18; O2SAT 98
== END 2025-05-15 08:51 | disposition home or self-care (01) ==
PROVIDERS: PCP Nurse Practitioner Adult Health; Referring Provider Nurse Practitioner Family; Visit Provider Internal Medicine Gastroenterology
PROC: 0DJ08ZZ Inspection of Upper Intestinal Tract, Via Natural or Artificial Opening Endoscopic (ICD-10-PCS; CPT 45378; principal; 2025-05-15 07:30)
DX: K22.70 Barrett's esophagus without dysplasia (principal); K64.8 Other hemorrhoids; K57.30 Diverticulosis of large intestine without perforation or abscess without bleeding; K44.9 Diaphragmatic hernia without obstruction or gangrene; K22.89 Other specified disease of esophagus; K21.9 Gastro-esophageal reflux disease without esophagitis; E11.22 Type 2 diabetes mellitus with diabetic chronic kidney disease; I12.9 Hypertensive chronic kidney disease with stage 1 through stage 4 chronic kidney disease, or unspecified chronic kidney disease; N18.4 Chronic kidney disease, stage 4 (severe); I50.30 Unspecified diastolic (congestive) heart failure; D64.9 Anemia, unspecified; J45.909 Unspecified asthma, uncomplicated; M17.12 Unilateral primary osteoarthritis, left knee; E78.00 Pure hypercholesterolemia, unspecified; G47.33 Obstructive sleep apnea (adult) (pediatric); F40.240 Claustrophobia; F41.9 Anxiety disorder, unspecified; R15.9 Full incontinence of feces; G89.29 Other chronic pain; M54.2 Cervicalgia; L30.9 Dermatitis, unspecified; L71.9 Rosacea, unspecified; M10.9 Gout, unspecified; E66.9 Obesity, unspecified; Z68.35 Body mass index [BMI] 35.0-35.9, adult; Z79.51 Long term (current) use of inhaled steroids; Z79.85 Long-term (current) use of injectable non-insulin antidiabetic drugs; Z99.89 Dependence on other enabling machines and devices; Z98.890 Other specified postprocedural states; Z90.49 Acquired absence of other specified parts of digestive tract; Z98.51 Tubal ligation status; Z96.0 Presence of urogenital implants; Z87.891 Personal history of nicotine dependence; Z87.19 Personal history of other diseases of the digestive system; Z80.0 Family history of malignant neoplasm of digestive organs; Z80.6 Family history of leukemia; Z82.49 Family history of ischemic heart disease and other diseases of the circulatory system
CPT/HCPCS: 43239; 45380; 82948; 88305; J1596; J2003; J2704; J7120

== ENCOUNTER 2025-06-17 10:07 | Outpatient (CLI) | payer MEDICARE, MEDICAID, SELFPAY ==
--- OUTSIDE RECORDS SUMMARY | 2025-06-17 11:20 | XMS_ITS | Clinical Summary ---
Author Organization [facility] al Address [address] [place] [address] Care Team Providers Care City Route Driver Name Role Phone Angel Cottrell DO Primary Care Provider [phone] Allergies Active Allergy Reactions Criticality Noted Date [...] mouth daily Monthly infusion Active vit D3-vit B-cajwlqvlb-uwu s [phone] fkqg-yvr-jl-mg tablet Take by mouth Active ergocalciferol (VITAMIN [...] continue medication and follow up with Director Agency & Strategic Partnerships. 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 Gender Identity Not on file Sexual Orientation [...] EXTERNAL LAB Blood specimen (specimen) 01/17/2020 us [facility] Provider LAB BLOOD ORDERABLES Katelyn sena Result EXTERNAL LAB * (ABNORMAL) Lipid panel [...] ORDERABLES Final Result JOSHUA MACIEL (EMANUEL) 1 [facility] Department [place] [address] from Last 3 Months or Most Recently Relevant to Health Maintenance Insurance HUMANA CHOICE MEDICARE PPO IDPA HUMANA CHOICE MEDICARE PPO IDPA HUMANA MEDICARE HMO Care Teams City Route Driver Relationship Specialty Start Date End Date Angel Cottrell DO PCP - General Family Medicine 03/11/20
--- OUTSIDE RECORDS SUMMARY | 2025-06-17 11:20 | XMS_ITS | Clinical Summary ---
Author Organization [facility] Address [address] [address] Phone Care Team Providers Care Tool Filer Name Role Phone Wiley Causey MD Primary Care Provider [phone] Allergies Active Allergy Reactions Criticality Noted Date [...] declined 01/22/2025 How often do you attend pentecostal or moravian serv ices? Patient declined 01/22/2025 Do you belong to any clubs o r organizations such as pentecostal groups, unions, fraternal or athletic groups, or [...] medical care, and heating? Patient declined 01/22/2025 [facility] Occupat ional [facility] - Occupational Stress Questionnaire Answer Date [...] any time in the past 12 m [facility], were you homeless or living in a prison (including now)? Patient declined 01/22/2025 [facility] Utilities Answer Date Recorded In the past 12 months has th e electric, gas, oil, or water company threatened to shut off services in your home? 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 Gender Identity Not on file Sexual [...] Virus (RSV) Immunization (Adult) (1 - Risk 50-74 years 1-dose series) 2002 Pneumococcal Immunization (50+ years) (2 of 2 - PPSV23, PCV20, or PCV21) 09/12/2017 07/18/2017, 04/05/2017 Medicare Initial AWV [id number] 07/18/2019 Colonoscopy 09/27/2023 09/26/2018 Colorectal Cancer Screening 09/27/2023 Influenza Immunization (#1) 2025 SARS-COV-2 Immunization ( season) 2025 Diabetes: Hemoglobin A1c 07/27/20252 025, 01/23/2025, 07/01/2020, Additional history exists Diabetes: [...] - 6.0 % 01/24/2025 8:11 AM CDT [facility] Est Average Glucose 157.1 mg/dL 01/24/2025 8:11 AM CDT [facility] Blood Venipuncture / Unknown 01/24/2025 5:46 AM CDT 01/24/2025 7:09 AM CDT Narrative [facility] - 01/24/2025 8:11 AM CDT HEMOGLOBIN A1C: DIABETIC PATIENTS: WELL-CONTROLLED: 6.2 - 7.0 INTERMEDIATE WELL-CONTROLLED: 7.0 - 9.0 POORLY-CONTROLLED: >9.0 Specimens containing greater than 5% of Hemoglobin F may result in lower than expected % HbA1C results. us Stacey Masterson BID ANALYST, DIRECTOR OF CLINICAL APPLICATIONS CHEMISTRY ORDERABLES Fi nal Result [facility] [address] [place] [address] * (ABNORMAL) CMP (Comprehensive Metabolic Panel) (01/22/2025 11:33 AM CDT) SODIUM 135(L) 136 - 145 mmol/L 01/22/2025 12:11 PM CDT [facility] POTASSIUM 4.4 3.5 - 5.1 mmol/L 01/22/2025 12:11 PM CDT [facility] CHLORIDE 104 98 - 107 mmol/L 01/22/2025 12:11 PM T [facility] CO2, VENOUS 21(L) 22 - 30 mmol/L 01/22/2025 12:11 PM CDT [facility] ANION GAP 14.4 <18.0 mmol/L 01/22/2025 12:11 PM CDT [facility] GLUCOSE 238(H) 70 - 99 mg/dL 01/22/2025 12:11 PM CDT [facility] BUN 25(H) 10 - 20 mg/dL 01/22/2025 12:11 PM T [facility] CREATININE, BLOOD 1.70(H) 0.60 - 1.00 mg/dL 01/22/2025 12:11 PM T [facility] BUN/CREATININE RATIO 15 12 - 20 ratio 01/22/2025 12:11 PM CDT [facility] TOTAL PROTEIN 6.7 6.0 - 8.0 g/dL 01/22/2025 12:11 PM T [facility] ALBUMIN 3.9 3.5 - 5.0 g/dL 01/22/2025 12:[address] [facility] A/G RATIO 1.4 1.0 - 2.2 01/22/2025 12:[address] [facility] CALCIUM 8.5(L) 8.7 - 10.5 mg/dL 01/22/2025 12:11 PM T [facility] T BILI 0.7 0.2 - 1.2 mg/dL 01/22/2025 12:11 PM T [facility] SGOT (AST) 18 <43 U/L 01/22/2025 12:11 PM T [facility] SGPT (ALT) 11 <56 U/L 01/22/2025 12:11 PM CDT [facility] ALKALINE PHOSPHATASE 114 40 - 150 U/L 01/22/2025 12:11 PM CDT [facility] GFR, ESTIMATED 32(L) >=60 01/22/2025 12:11 PM CDT [facility] Comment: Creatinine Clearance is the preferred criteria for selecting drug dose adjustments in renally impaired patients. The GFR is provided as additional pertinent clinical information. GFR is reported in mL/min/1.73 sq m. Calculation based on the Chronic Kidney Disease Epidemiology Collaboration (CKD- EPI) equation refit without adjustment for race. GFR, EST. 36(L) >=60 025 12:11 PM CDT [facility] GFR, EST. NONAFRICAN 30(L) >=60 01/22/2025 12:11 PM CDT [facility] Blood Venipuncture / Unknown 01/22/2025 11:33 AM CDT 01/22/2025 11:46 AM CDT Carlos Ross MD CHEMISTRY ORDERABLES Final Result [facility] [address] [place] [address] from Last 3 Months or Most Recently Relevant to Health Maintenance Insurance MEDICARE C [employer] [place] Advance Directives * Full Code (Latest Code Status on File) Date Activated Date Inactivated Comments 01/22/2025 1:59 PM CPR-Full Treatm ent: FULL ARREST: Attempt Resuscitation/CPR wit intubation and mechanical ventilation. PRE-ARREST: Use entire range of life support measures to stabilize the patient. Care Teams Tool Filer Relationship Specialty Start Date End Date Wiley Causey MD PCP - General Family Medicine 06/28/22
--- OUTSIDE RECORDS SUMMARY | 2025-06-17 11:20 | XMS_ITS | Clinical Summary ---
Author Organization [facility] Jeffery payan [facility] Address [address] [place] [address] Care Team Providers Care Apron Operator Name Role Phone Wiley Causey MD Primary Care Provider [phone] Allergies Active Allergy Reactions Criticality Noted Date Comments Atorvastatin Hives High 12/03/2020 Budesonide-Formoterol Muscle Pain Medium 11/26/2020 Togwagy-Ozm-Xtc Reductase Inhibitors Other (See Comments) 04/28/2021 Tramadol [...] mg by mouth. Active Vit D3 & N-Bvuihdhun-Gc ps [phone] anqq-nav-wa-mg Tablet Take by mouth. Activ e omeprazole [...] Encounters Date Type Department Care Team Description 06/04/2025 External Device Data [facility] ABSTRACTION Provider, Abstract [...] st Contact Info) Description 06/27/2025 1:15 PM DOORMAKER [facility] Visit [facility] - [place] [address] [facility] [address] [place] [address] Gabo Jiang MD [address] [facility] [facility] [address] [place] [address] Health Maintenance Due Date Last [...] 07/01/2020, 08/2019 INFLUENZA VACCINE (#1) 2025 Insurance [facility] [place]ICAID [place] Care Teams Apron Operator Relationship Specialty Start Date End Date Wiley Causey MD PCP - General Family Practice 08/04/21
[2025-06-17 19:30] LABS: Hematocrit 34.6 % (37.0-47.0); Hemoglobin 10.6 g/dL (12.0-15.0); Mean Corpuscular HGB Conc 30.6 g/dl (32-36); Mean Corpuscular Hemoglobin 28.2 pg (26-34); Mean Corpuscular Volume 92.0 fl (80-100); Platelet Count Result 180 k/mm3 (150-375); Red Blood Count 3.76 M/mm3 (4.2-5.4); White Blood Count 9.7 K/mm3 (4.5-10.0)
[2025-06-17 19:59] LABS: Anion Gap 5 mmol/L (4-12); Blood Urea Nitrogen 26 mg/dL (7-17); Calcium 9.0 mg/dL (8.4-10.2); Carbon Dioxide 28 mmol/L (22-30); Chloride 104 mmol/L (98-107); Estimated Glomerular Filt Rate 28; Glucose 143 mg/dL (65-110); Potassium 3.9 mmol/L (3.4-5.0); Sodium 137 mmol/L (137-145)
[2025-06-17 20:59] LABS: Iron 60 ug/dL (37-170)
[2025-06-17 21:09] LABS: Percent Iron Saturation 19 % (20-50)
[2025-06-17 21:11] LABS: Vitamin B12 301.0 pg/mL (239-931)
[2025-06-17 21:40] LABS: Ferritin 39.30 ng/mL (11.1-264)
== END 2025-06-17 10:08 | disposition home or self-care (01) ==
PROVIDERS: PCP Nurse Practitioner Adult Health; Visit Provider Internal Medicine Hematology & Oncology
DX: D64.9 Anemia, unspecified (principal)
CPT/HCPCS: 36415; 80048; 82607; 82728; 82746; 83540; 83550; 85027

== ENCOUNTER 2025-07-02 07:45 | Outpatient (CLI) | payer MEDICARE, MEDICAID, SELFPAY ==
--- NOTE | ~2025-07-02 | MR_ITS ---
EXAM/PROCEDURE: MR lumbar spine wo con HISTORY: spinal stenosis COMPARISON: None available. TECHNIQUE: Multiplanar noncontrast lumbar spine MRI FINDINGS: Degenerative changes throughout the lumbar spine and disc spaces and posterior elements. No acute or aggressive bony or soft tissue process seen. The conus tapers normally at the L1-2 interspace. Level specific findings as follows: T12-L1: Degenerative change L1-2: Moderately severe posterior spondylosis with deformity of the left para midline and foraminal ventral sac but no discrete disc protrusion or spinal canal stenosis. Mild to moderate bilateral neural foraminal narrowing. L2-3: No spinal canal stenosis or discrete disc protrusion. Moderately severe right and mild to moderate left-sided neural foraminal narrowing associated with degenerative disc and facet changes. L3-4: More advanced posterior disc bulging and facet hyperostosis with thickening of ligamentum flavum resulting in stenosis developing in the lateral recesses left worse than right. No discrete disc protrusion. No spinal canal stenosis. Moderately severe bilateral neural foraminal narrowing left worse than right. L4-5: Approximately 3 mm grade 1 anterolisthesis L4 on L5 with advanced hyperostosis of the facet joints, thickening of ligamentum flavum and moderately severe posterior spondylosis/disc bulging resulting in moderate to severe spinal canal stenosis. No discrete disc protrusion seen. L5-S1: No spinal canal stenosis or discrete disc protrusion. Mild to moderate bilateral neural foraminal narrowing. IMPRESSION: Multilevel degenerative changes, most severe at L4-5 as detailed above. Reviewed, dictated and finalized at location A. UTER SCIENCES PROFESSOR IMPRESSION: Multilevel degenerative changes, most severe at L4-5 as detailed ab edgardoe.
--- OUTSIDE RECORDS SUMMARY | 2025-07-02 07:52 | XMS_ITS | Clinical Summary ---
Author Organization [facility] Address [address] [address] Phone Care Team Providers Care Materials Recycler Name Role Phone Wiley Causey MD Primary Care Provider [phone] Allergies Active Allergy Reactions Criticality Noted Date [...] declined 01/22/2025 How often do you attend roman catholic or congregation serv ices? Patient declined 01/22/2025 Do you belong to any clubs o r organizations such as roman catholic groups, unions, fraternal or athletic groups, or [...] medical care, and heating? Patient declined 01/22/2025 [facility] of Occupat ional [facility] - Occupational Stress Questionnaire Answer Date Recorded [...] any time in the past 12 m [facility], were you homeless or living in a fpc (including now)? Patient declined 01/22/2025 [facility] Utilities Answer Date Recorded In the past 12 months has th e electric, gas, oil, or water company threatened to shut off services in your home? Patient declined 01/22/2025 Comments No Sex and Gender Information Value Date Recorded Sex Assigned at Not on file Legal Sex Female 2:49 PM BI APPLICATION DEVELOPER Gender Identity Not on file Sexual Orientation [...] ( season) 2025 Diabetes: Hemoglobin A1c 07/27/2025 072 025, 01/23/2025, 07/01/2020, Additional history exists Diabetes: Nephropathy Screening 01/22/2026 01/22/2025, 05/21/2019 Pneumococcal Immunization Combined Discontinued 07/18/2017, 04/05/2017 Zoster Immunization Completed 07/02/2022, Hepatitis B Immunization Aged Out No longer eligible based on patient's age to complete this topic Human Papillomavirus (HPV) Immunization (No Doses Required) Completed Meningococcal Immunization (ACWY) Aged Out No longer [...] - 6.0 % 01/24/2025 8:11 AM CDT [facility] Est Average Glucose 157.1 mg/dL 01/24/2025 8:11 AM CDT [facility] Blood Venipuncture / Unknown 01/24/2025 5:46 AM CDT 01/24/2025 7:09 AM CDT Narrative [facility] - 01/24/2025 8:11 AM CDT HEMOGLOBIN A1C: DIABETIC PATIENTS: WELL-CONTROLLED: 6.2 - 7.0 INTERMEDIATE WELL-CONTROLLED: 7.0 - 9.0 POORLY-CONTROLLED: >9.0 Specimens containing greater than 5% of Hemoglobin F may result in lower than expected % HbA1C results. us Stacey Masterson SENIOR AUDIT MANAGER, FIELD MARKETING REPRESENTATIVE CHEMISTRY ORDERABLES Fi nal Result [facility] [address] [place] [address] * (ABNORMAL) CMP (Comprehensive Metabolic Panel) (01/22/2025 11:33 AM CDT) SODIUM 135(L) 136 - 145 mmol/L 01/22/2025 12:11 PM CDT [facility] POTASSIUM 4.4 3.5 - 5.1 mmol/L 01/22/2025 12:11 PM CDT [facility] CHLORIDE 104 98 - 107 mmol/L 01/22/2025 12:11 PM CDT [facility] CO2, VENOUS 21(L) 22 - 30 mmol/L 01/22/2025 12:11 PM CDT [facility] ANION GAP 14.4 <18.0 mmol/L 01/22/2025 12:11 PM CDT [facility] GLUCOSE 238(H) 70 - 99 mg/dL 01/22/2025 12:11 PM CDT [facility] BUN 25(H) 10 - 20 mg/dL 01/22/2025 12:11 PM CDT [facility] CREATININE, BLOOD 1.70(H) 0.60 - 1.00 mg/dL 01/22/2025 12:11 PM CDT [facility] BUN/CREATININE RATIO 15 12 - 20 ratio 01/22/2025 12:11 PM CDT [facility] TOTAL PROTEIN 6.7 6.0 - 8.0 g/dL 01/22/2025 12:11 PM CDT [facility] ALBUMIN 3.9 3.5 - 5.0 g/dL 01/22/2025 12:11 PM CDT [facility] A/G RATIO 1.4 1.0 - 2.2 01/22/2025 12:11 PM CDT [facility] CALCIUM 8.5(L) 8.7 - 10.5 mg/dL 01/22/2025 12:11 PM CDT [facility] T BILI 0.7 0.2 - 1.2 mg/dL 01/22/2025 12:11 PM CDT [facility] SGOT (AST) 18 <43 U/L 01/22/2025 12:11 PM CDT [facility] SGPT (ALT) 11 <56 U/L 01/22/2025 12:11 PM CDT [facility] ALKALINE PHOSPHATASE 114 40 - 150 U/L 01/22/2025 12:11 PM CDT [facility] GFR, ESTIMATED 32(L) >=60 01/22/2025 12:11 PM CDT [facility] Comment: Creatinine Clearance is the preferred criteria for selecting drug dose adjustments in renally impaired patients. The GFR is provided as additional pertinent clinical information. GFR is reported in mL/min/1.73 sq m. Calculation based on the Chronic Kidney Disease Epidemiology Collaboration (CKD- EPI) equation refit without adjustment for race. GFR, EST. 36(L) >=60 025 12:11 PM CDT [facility] GFR, EST. NONAFRICAN 30(L) >=60 01/22/2025 12:11 PM CDT [facility] Blood Venipuncture / Unknown 01/22/2025 11:33 AM CDT 01/22/2025 11:46 AM CDT us Carlos Ross MD CHEMISTRY ORDERABLES Final Result [facility] [address] [place] [address] from Last 3 Months or Most Recently Relevant to Health Maintenance Insurance MEDICARE C [employer] [place] Advance Directives * Full Code (Latest Code Status on File) Date Activated Date Inactivated Comments 01/22/2025 1:59 PM CPR-Full Treatm ent: FULL ARREST: Attempt Resuscitation/CPR wit intubation and mechanical ventilation. PRE-ARREST: Use entire range of life support measures to stabilize the patient. Care Teams Materials Recycler Relationship Specialty Start Date End Date Wiley Causey MD PCP - General Family Medicine 06/28/22
--- OUTSIDE RECORDS SUMMARY | 2025-07-02 07:52 | XMS_ITS | Clinical Summary ---
Author Organization [facility] Jeffery payan [facility] Address [address] [place] [address] Care Team Providers Care Distribution A Class Lineman Name Role Phone Wiley Causey MD Primary Care Provider [phone] Allergies Active Allergy Reactions Criticality Noted Date Comments Atorvastatin Hives High 12/03/2020 Budesonide-Formoterol Muscle Pain Medium 11/26/2020 Jnsuaks-Dbm-Bko Reductase Inhibitors Other (See Comments) 04/28/2021 Tramadol Hives High 09/15/2018 Medications amLODIPine (NORVASC) 5 mg tablet Take 5 mg by mouth. 05/22/20 19 Active betamethasone valerate (VALISONE) 0.1 % Cream Apply to affected area. Active blood sugar diagnostic Strip TEST BS ONCE D 03/09/20 20 Active lancets USE TO TEST ONCE DAILY 03/09/20 20 Active lisinopriL (PRINIVIL) 20 mg tablet Take 20 mg by mouth. Active Vit D3 & Z-Leblodcky-Rh ps [phone] ntqn-gdf-wq-mg Tablet Take by mouth. Activ e omeprazole (PriLOSEC) 40 mg Capsule, Delayed Release(E.C.) Take 40 mg by mouth daily. Active Ozempic 1 mg/dose (4 mg/3 mL) Pen Injector 10/27/19 22 Active allopurinoL (ZYLOPRIM) 300 mg tablet Take 300 mg by mouth daily. 10/21/19 22 Active HYDROcodone-ac etaminophen (NORCO) 5-325 mg tablet Take 1 Tablet by mouth every 8 hours as needed. 06/19/20 24 Active cyanocobalamin (VITAMIN B-12) 1,000 mcg/mL SolutionIndica tions:Other dietary vitamin B12 deficiency anemia Inject 1 mL (1,000 mcg) by intramuscular injection every 30 days. 1 mL 4 10/30/19 Active pregabalin (LYRICA) 50 mg Capsule Take 50 mg by mouth every 12 hours. 05/31/20 25 Active cyanocobalamin (VITAMIN B-12) 1,000 mcg/mL SolutionIndica tions:Other dietary vitamin B12 deficiency anemia Inject 1 mL (1,000 mcg) by intramuscular injection every 30 days. 10 mL 1 06/27/20 25 Active Syringe with Needle, Disp, 1 mL 27 x 1/2 SyringeIndicat ions:Other dietary vitamin B12 deficiency anemia Use with B12 injection. 1 Each 4 06/27/20 25 Active cyanocobalamin (VITAMIN B-12) 1,000 mcg/mL SolutionIndica tions:Other dietary vitamin B12 deficiency anemia ADMINISTER 1 ML(1000 MCG) IN THE MUSCLE EVERY 30 DAYS 1 mL 07/30/19 25 025 Discontinu ed(Alterna te therapy prescribed ) Syringe with Needle, Disp, 1 mL 27 x 1/2 SyringeIndicat ions:Other dietary vitamin B12 deficiency anemia Use with B12 injection. 1 Each 4 10/30/19 25 025 Discontinu ed(Reorder ) Active Problems Problem Noted Date Diagnosed Date Stage 3b chronic kidney disease 12/03/2020 Chronic anemia 12/03/2020 Other dietary vitamin B12 deficiency anemia 11/15 Encounters Date Type Department Care Team Description 06/27/2025 1:15 PM RESEARCH INSTRUCTOR Office Visit [facility] Oncology and Hematology [address] [place] [address] Gabo Jiang MD Chronic anemia (Primary Dx); Other dietary vitamin B12 deficiency anemia 06/27/2025 Refill [facility] Oncology and Hematology - [place] [address] [place] [address] Gabo Jiang MD Other dietary vitamin B12 deficiency anemia 06/04/2025 External Device Data ST[facility] ABSTRACTION Provider, [...] 1 982 - 2007 Smokeless Tobacco: Never Alcohol Use Standard Drinks/Week Comments Yes 0 (1 standard drink = 0.6 oz pur e alcohol) Comments No Sex and Gender Information Value Date Recorded Sex Assigned at Not on file Legal Sex Female 2:03 PM CDT Gender Identity Not on file Sexual Orientation Not on file Last Filed Vital Signs Vital Sign Reading Time Taken Comments Blood Pressure 130/75 06/27/2025 1:25 PM RESEARCH INSTRUCTOR Pulse 83 06/27/2025 1:09 PM RESEARCH INSTRUCTOR Temperature 37.1 C (98.7 F) 06/27/2025 1:09 PM RESEARCH INSTRUCTOR Respiratory Rate 16 06/27/2025 1:09 PM RESEARCH INSTRUCTOR Oxygen Saturation 91% 06/27/2025 1:09 PM RESEARCH INSTRUCTOR Inhaled Oxygen Concentration - - Weight 92.4 kg (203 lb 12.8 oz) 06/27/2025 1:09 PM RESEARCH INSTRUCTOR Height 157.5 cm (5' 2) 04/20/2022 2:54 PM CDT Body Mass Index 37.28 04/20/2022 2:54 PM CDT Plan of Treatment Upcoming Encounters Date Type Department Care Team (Late st Contact Info) Description 12/26/2025 1:15 PM CDT Office Visit [facility] Oncology and Hematology [facility] [address] [facility] [address] [place] [address] Gabo Jiang MD [address] [facility] [address] [place] [address] Health Maintenance Due Date Last Done Comments DIABETES ANNUAL RETINAL EXAM 1970 DIABETES MICROALBUMIN [...] of 2) 2002 OSTEOPOROSIS SCREENING 2017 DIABETES ANNUAL FOOT EXAM 03/20/2021 03/20/2020 INFLUENZA VACCINE (#1) 2025 DIABETES HBA1C Q 6 MONTHS 07/27/20252024, 01/23/2025, 07/01/2020, Additional history exists Insurance [facility] Address: [address] [place] [address] MEDICAID [place] Care Teams Distribution A Class Lineman Relationship Specialty Start Date End Date Wiley Causey MD PCP - General Family Practice 08/04/21
--- OUTSIDE RECORDS SUMMARY | 2025-07-02 07:52 | XMS_ITS | Encounter Summary ---
Author Organization [facility] works [facility] Address [address] [place] [address] Care Team Providers Care Fixed Wing Pilot Name Role Phone Wiley Causey MD Primary Care Provider [phone] Reason for Visit * Reason Comments Med Refill Encounter Details Date Type Department Care Team ([facility] Contact Info) Description 06/27/2025 Refill [facility] Oncology and Hematology - [place] [address] [place] [address] Gabo Jiang MD [facility] [address] [place] [address] Other dietary vitamin B12 deficiency anemia [...] Department Care Team (Late Contact Info) Description 12/26/2025 1:15 PM CDT Office Visit [facility] Oncology and Hematology - [place] [address] [place] [address] Gabo Jiang MD [address] [place] [address] documented as of this encounter Visit Diagnoses Diagnosis Other dietary vitamin B12 deficiency anemia documented in this encounter Care Teams Fixed Wing Pilot Relationship Specialty Start Date End Date Wiley Causey MD PCP - General Family Practice 08/04/21 documented as of this encounter
--- OUTSIDE RECORDS SUMMARY | 2025-07-02 07:52 | XMS_ITS | Clinical Summary ---
Author Organization [facility] Address [address] [place] [address] Care Team Providers Care Page Makeup System Operator Name Role Phone Angel Cottrell DO Primary Care Provider [phone] Allergies Active Allergy Reactions Criticality Noted Date [...] mouth daily Monthly infusion Active vit D3-vit U-xxqglefvv-sak s [phone] inmg-pqi-wg-mg tablet Take by mouth Active ergocalciferol (VITAMIN [...] - continue medication and follow up with Provider Relations Specialist. MADDY (obstructive sleep apnea) 03/20/2020 Type [...] on file Legal Sex Female 8:44 PM LONG TERM CARE PHLEBOTOMIST Gender Identity Not on file Sexual Orientation [...] EXTERNAL LAB Blood specimen (specimen) 01/17/2020 us [facility] Provider LAB BLOOD ORDERABLES Katelyn sena Result [...] ORDERABLES Final Result JOSHUA MACIEL (EMANUEL) [address] [facility] Department [place] [address] from Last 3 Months or Most Recently Relevant to Health Maintenance Insurance HUMANA CHOICE MEDICARE PPO IDPA HUMANA CHOICE MEDICARE PPO IDPA HUMANA MEDICARE HMO Care Teams Page Makeup System Operator Relationship Specialty Start Date End Date Angel Cottrell DO PCP - General Family Medicine 03/11/20
--- OUTSIDE RECORDS SUMMARY | 2025-07-02 07:52 | XMS_ITS | Clinical Summary ---
Author Organization [facility] Address [address] [place] [id number] Phone Care Team Providers Care Log Skidder Name Role Phone Wiley Causey MD Primary Care Provider [phone] Allergies Active Allergy Reactions Criticality Noted Date [...] - continue medication and follow up with Laundry Helper. Obstructive sleep apnea syndrome 03/20/2020 Type 2 [...] PCV) 2002 Influenza Vaccine (#1) [address] [place] [address] MEDICARE ADVANTAGE MEDICAID - [place] Care Teams Log Skidder Relationship Specialty Start Date End Date Wiley Causey MD PCP - General Family Medicine 10/05/21
== END 2025-07-02 07:46 | disposition home or self-care (01) ==
PROVIDERS: PCP Nurse Practitioner Adult Health; Visit Provider Nurse Practitioner Adult Health
DX: M51.369 Other intervertebral disc degeneration, lumbar region without mention of lumbar back pain or lower extremity pain (principal); M48.062 Spinal stenosis, lumbar region with neurogenic claudication; M43.16 Spondylolisthesis, lumbar region
CPT/HCPCS: 72148

== ENCOUNTER 2025-07-08 06:55 | Outpatient (CLI) | payer MEDICARE, MEDICAID, SELFPAY ==
--- OUTSIDE RECORDS SUMMARY | 2025-07-08 06:59 | XMS_ITS | Clinical Summary ---
Author Organization [facility] Facility Address [address] [address] Care Team Providers Care Seed Corn Production Manager Name Role Phone Wiley Causey MD Primary Care Provider [phone] Allergies Active Allergy Reactions Criticality Noted Date [...] Comments Blood Pressure 132/62 09/15/2021 2:23 PM EXECUTIVE ADMINISTRATOR Pulse 93 06/16/2021 1:49 PM EXECUTIVE ADMINISTRATOR Temperature 36.4 C (97.6 F) 09/15/2021 2:23 PM EXECUTIVE ADMINISTRATOR Respiratory Rate 18 09/15/2021 2:23 PM EXECUTIVE ADMINISTRATOR Oxygen Saturation 98% 09/15/2021 2:23 PM EXECUTIVE ADMINISTRATOR Inhaled Oxygen Concentration - - Weight 101 kg (223 lb) 09/15/2021 2:23 PM EXECUTIVE ADMINISTRATOR Height 157.5 cm (5' 2) 09/15/2021 2:23 PM EXECUTIVE ADMINISTRATOR Body Mass Index 40.79 09/15/2021 2:23 PM EXECUTIVE ADMINISTRATOR Plan of Treatment Health Maintenance Due Date [...] Comments HEMOGLOBIN A1C Routine 07/01/2020 11:00 AM EXECUTIVE ADMINISTRATOR from Last 3 Months or Most Recently Relevant to Health Maintenance Results * (ABNORMAL) Hemoglobin A1c (07/01/2020 11:00 AM EXECUTIVE ADMINISTRATOR) Hemoglobin A1C 6.3(H) <5.7 % of total [...] diabetes for children. 07/01/2020 11:0 0 AM EXECUTIVE ADMINISTRATOR us Hay Jerez DO LAB BLOOD ORDERABLES Final R esult [facility] from Last 3 Months or Most Recently Relevant to Health Maintenance Insurance [employer] Medicare Medicaid [place] Care Teams Seed Corn Production Manager Relationship Specialty Start Date End Date Wiley Causey MD [address] [place] [address] PCP - General Family Medicine 06/17/21
--- OUTSIDE RECORDS SUMMARY | 2025-07-08 06:59 | XMS_ITS | Clinical Summary ---
Author Organization [facility] Address [address] [place] [address] Phone Care Team Providers Care Manager Payroll Name Role Phone Wiley Causey MD Primary Care Provider [phone] Allergies Active Allergy Reactions Criticality Noted Date [...] - continue medication and follow up with Health Information Manager. Obstructive sleep apnea syndrome 03/20/2020 Type 2 [...] PCV) 2002 Influenza Vaccine (#1) [address] [place] [address] MEDICARE [place] [address] Care Teams Manager Payroll Relationship Specialty Start Date End Date Wiley Causey MD PCP - General Family Medicine 10/05/21
--- OUTSIDE RECORDS SUMMARY | 2025-07-08 06:59 | XMS_ITS | Clinical Summary ---
Author Organization [facility] Address [address] [address] Phone Care Team Providers Care Temple Meat Cutter Name Role Phone Wiley Causey MD Primary Care Provider [phone] Allergies Active Allergy Reactions Criticality Noted Date [...] declined 01/22/2025 How often do you attend hoahaoism or bahai serv ices? Patient declined 01/22/2025 Do you belong to any clubs o r organizations such as hoahaoism groups, unions, fraternal or athletic groups, or [...] medical care, and heating? Patient declined 01/22/2025 [facility] - Occupational Stress Questionnaire Answer [...] any time in the past [address] [facility], were you homeless or living in a prison (including now)? Patient declined 01/22/2025 [facility] Utilities Answer Date Recorded In the past 12 months has th e electric, gas, oil, or water company threatened to shut off services in your home? Patient declined 01/22/2025 Comments No Sex and Gender Information Value Date Recorded Sex Assigned at Not on file Legal Sex Female 2:49 PM WAITER/WAITRESS CABIN CLASS Gender Identity Not on file Sexual Orientation [...] - 6.0 % 01/24/2025 8:11 AM CDT [facility] Est Average Glucose 157.1 mg/dL 01/24/2025 8:11 AM CDT [facility] Blood Venipuncture / Unknown 01/24/2025 5:46 AM CDT 01/24/2025 7:09 AM CDT Narrative [facility] - 01/24/2025 8:11 AM CDT HEMOGLOBIN A1C: DIABETIC PATIENTS: WELL-CONTROLLED: 6.2 - 7.0 INTERMEDIATE WELL-CONTROLLED: 7.0 - 9.0 POORLY-CONTROLLED: >9.0 Specimens containing greater than 5% of Hemoglobin F may result in lower than expected % HbA1C results. us Stacey Matserson LEVELING MACHINE OPERATOR, STRAND AND BINDER CONTROLLER CHEMISTRY ORDERABLES Fi nal Result [facility] [address] [place] [address] * (ABNORMAL) CMP (Comprehensive Metabolic Panel) (01/22/2025 11:33 AM CDT) SODIUM 135(L) 136 - 145 mmol/L 01/22/2025 12:11 PM CDT [facility] POTASSIUM 4.4 3.5 - 5.1 mmol/L 01/22/2025 12:11 PM CDT [facility] CHLORIDE 104 98 - 107 mmol/L 01/22/2025 12:11 PM CDT [facility] CO2, VENOUS 21(L) 22 - 30 mmol/L 01/22/2025 12:11 PM CDT [facility] ANION GAP 14.4 <18.0 mmol/L 01/22/2025 12:11 PM CDT [facility] GLUCOSE 238(H) 70 - 99 mg/dL 01/22/2025 12:11 PM CDT [facility] BUN 25(H) 10 - 20 mg/dL 01/22/2025 12:11 PM CDT [facility] CREATININE, BLOOD 1.70(H) 0.60 - 1.00 mg/dL 01/22/2025 12:11 PM CDT [facility] BUN/CREATININE RATIO 15 12 - 20 ratio 01/22/2025 12:11 PM CDT [facility] TOTAL PROTEIN 6.7 6.0 - 8.0 g/dL 01/22/2025 12:11 PM CDT [facility] ALBUMIN 3.9 3.5 - 5.0 g/dL 01/22/2025 12:11 PM CDT [facility] A/G RATIO 1.4 1.0 - 2.2 01/22/2025 12:11 PM CDT [facility] CALCIUM 8.5(L) 8.7 - 10.5 mg/dL 01/22/2025 12:11 PM CDT [facility] T BILI 0.7 0.2 - 1.2 mg/dL 01/22/2025 12:11 PM CDT [facility] SGOT (AST) 18 <43 U/L 01/22/2025 12:11 PM CDT [facility] SGPT (ALT) 11 <56 U/L 01/22/2025 12:11 PM CDT [facility] ALKALINE PHOSPHATASE 114 40 - 150 U/L 01/22/2025 12:11 PM CDT [facility] GFR, ESTIMATED 32(L) >=60 01/22/2025 12:11 PM CDT [facility] Comment: Creatinine Clearance is the preferred criteria for selecting drug dose adjustments in renally impaired patients. The GFR is provided as additional pertinent clinical information. GFR is reported in mL/min/1.73 sq m. Calculation based on the Chronic Kidney Disease Epidemiology Collaboration (CKD- EPI) equation refit without adjustment for race. GFR, EST. 36(L) >=60 025 12:11 PM CDT [facility] GFR, EST. NONAFRICAN 30(L) >=60 01/22/2025 12:11 PM CDT [facility] Blood Venipuncture / Unknown 01/22/2025 11:33 AM CDT 01/22/2025 11:46 AM CDT us Carlos Ross MD CHEMISTRY ORDERABLES Final Result [facility] [address] [place] [address] from Last 3 Months or Most Recently Relevant to Health Maintenance Insurance MEDICARE C [employer] Member Subscriber Plan / Payer (Ef fective 2018-Present) Name:Edith Mayo Relation to Subscriber:Self Name:Edith Mayo Payer ID:[id number] (NAIC) Type:HMO Address: [address] [address] [place]ID [place] Advance Directives * Full Code (Latest Code Status on File) Date Activated Date Inactivated Comments 01/22/2025 1:59 PM CPR-Full Treatm ent: FULL ARREST: Attempt Resuscitation/CPR wit intubation and mechanical ventilation. PRE-ARREST: Use entire range of life support measures to stabilize the patient. Care Teams Temple Meat Cutter Relationship Specialty Start Date End Date Wiley Causey MD PCP - General Family Medicine 06/28/22
--- OUTSIDE RECORDS SUMMARY | 2025-07-08 06:59 | XMS_ITS | Clinical Summary ---
Author Organization [facility] Address [address] [place] [address] Care Team Providers Care Engineer Process Name Role Phone Angel Cottrell DO Primary Care Provider [phone] Allergies Active Allergy Reactions Criticality Noted Date [...] mouth daily Monthly infusion Active vit D3-vit J-huvhgpmfh-qwn s [id number] htng-spc-lr-mg tablet Take by mouth Active ergocalciferol (VITAMIN [...] - continue medication and follow up with Land Examiner. MADDY (obstructive sleep apnea) 03/20/2020 Type 2 [...] on file Legal Sex Female 8:44 PM STACK CLERK Gender Identity Not on file Sexual [...] EXTERNAL LAB Blood specimen (specimen) 01/17/2020 us [facility] Provider LAB BLOOD ORDERABLES Katelyn sena Result [...] ORDERABLES Final Result JOSHUA MACIEL (EMANUEL) [address] [facility] Department [place] [address] from Last 3 Months or Most Recently Relevant to Health Maintenance Insurance [employer] CHOICE MEDICARE PPO IDPA [employer] CHOICE MEDICARE PPO IDPA [employer] MEDICARE HMO Care Teams Engineer Process Relationship Specialty Start Date End Date Angel Cottrell DO PCP - General Family Medicine 03/11/20
--- OUTSIDE RECORDS SUMMARY | 2025-07-08 06:59 | XMS_ITS | Clinical Summary ---
Author Organization [facility] Address [address] [place] [address] Care Team Providers Care Sales Promotion Manager Name Role Phone Wiley Causey MD Primary Care Provider [phone] Allergies Active Allergy Reactions Criticality Noted Date Comments Atorvastatin Hives High 12/03/2020 Budesonide-Formoterol Muscle Pain Medium 11/26/2020 Malkxur-Kiy-Ktj Reductase Inhibitors Other (See Comments) 04/28/2021 Tramadol [...] mg by mouth. Active Vit D3 & D-Owllkhlip-Hl ps [id number] nqss-joh-ye-mg Tablet Take by mouth. Activ e omeprazole [...] Department Care Team Description 06/27/2025 1:15 PM PENSION FUND MANAGER Office Visit [facility] [place] [address] [place] [id number] Gabo Jiang MD Chronic anemia (Primary Dx); Other dietary vitamin B12 deficiency anemia 06/27/2025 Refill [facility] - [place] [address] [place] [phone] Gabo Jiang MD Other dietary vitamin B12 [...] Comments Blood Pressure 130/75 06/27/2025 1:25 PM PENSION FUND MANAGER Pulse 83 06/27/2025 1:09 PM PENSION FUND MANAGER Temperature 37.1 C (98.7 F) 06/27/2025 1:09 PM PENSION FUND MANAGER Respiratory Rate 16 06/27/2025 1:09 PM PENSION FUND MANAGER Oxygen Saturation 91% 06/27/2025 1:09 PM PENSION FUND MANAGER Inhaled Oxygen Concentration - - Weight 92.4 kg (203 lb 12.8 oz) 06/27/2025 1:09 PM PENSION FUND MANAGER Height 157.5 cm (5' 2) 04/20/2022 2:54 PM CDT Body Mass Index 37.28 04/20/2022 2:54 PM CDT Plan of Treatment Upcoming Encounters Date Type Department Care Team (Late st Contact Info) Description 12/26/2025 1:15 PM CDT Office Visit [facility] [address] [facility] [address] [place] [address] Gabo Jiang MD [address] [facility] [address] [place] [address] Health Maintenance Due Date Last [...] 07/27/20252024, 01/23/2025, 07/01/2020, Additional history exists [place] [facility] Address: [address] [place] [phone] [place]ID [place] Care Teams Sales Promotion Manager Relationship Specialty Start Date End Date Wiley Causey MD PCP - General Family Practice 08/04/21
[2025-07-08 18:55] LABS: Albumin Level 3.8 g/dL (3.5-5.1); Anion Gap 7 mmol/L (4-12); Blood Urea Nitrogen 31 mg/dL (7-17); Calcium 9.4 mg/dL (8.4-10.2); Carbon Dioxide 25 mmol/L (22-30); Chloride 108 mmol/L (98-107); Estimated Glomerular Filt Rate 26; Glucose 151 mg/dL (65-110); Potassium 4.4 mmol/L (3.4-5.0); Sodium 140 mmol/L (137-145)
[2025-07-08 19:06] LABS: Parathyroid Intact 72.2 pg/mL (14.5-75.2)
[2025-07-08 19:13] LABS: Hemoglobin A1C 6.5 % (<5.7)
[2025-07-08 19:18] LABS: Total Protein Urine Random < 5 mg/dL; Ur Ttl Prot Creatinine Ratio < 0.06 mg/mg (0-0.20)
== END 2025-07-08 06:56 | disposition home or self-care (01) ==
PROVIDERS: PCP Nurse Practitioner Adult Health; Visit Provider Internal Medicine Nephrology
DX: I12.9 Hypertensive chronic kidney disease with stage 1 through stage 4 chronic kidney disease, or unspecified chronic kidney disease (principal); N18.32 Chronic kidney disease, stage 3b; N20.0 Calculus of kidney; E11.22 Type 2 diabetes mellitus with diabetic chronic kidney disease; N25.81 Secondary hyperparathyroidism of renal origin; E55.9 Vitamin D deficiency, unspecified; E11.21 Type 2 diabetes mellitus with diabetic nephropathy
CPT/HCPCS: 36415; 80069; 82306; 82570; 83036; 83970; 84156